=== PATIENT | female | born 2000 | race Hispanic/Latino ===

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

== ENCOUNTER 2019-03-03 16:38 | Emergency (ER) | payer SELFPAY ==
--- NOTE | 2019-03-03 16:57 | ER ---
Nurse's Notes [facility] Name: Gisele Arechiga Age: 19 yrs Sex: Female : 2000 Arrival Date: 03/03/2019 Time: 16:40 Bed Waiting [facility] MD: Diagnosis: Scabies Presentation: 03/03 16:48 Presenting complaint: Scabies rash x 4 months. Transition of care: patient was not hb received from another setting of care. Onset of symptoms is unknown. Risk Assessment: Do you want to hurt yourself or someone else? Patient reports no desire to harm self or others. Initial Sepsis Screen: Does the patient meet any 2 criteria? No. Patient's initial sepsis screen is negative. Does the patient have a suspected source of infection? No. Patient's initial sepsis screen is negative. Care prior to arrival: None. 16:48 Method Of Arrival: Ambulatory hb 16:48 Acuity: IRIS 4 hb Historical: - Allergies: 16:49 PENICILLINS; hb - Home Meds: 16:49 Depo-Provera IM [Active]; sertraline Oral [Active]; Trazodone Oral [Active]; Valtrex hb Oral [Active]; victoza [Active]; - PMHx: 16:49 Bipolar disorder; Depression; Diabetes - NIDDM; ibs; hb - PSHx: 16:49 Ear Tubes; pilonidal cyst; hb - Immunization history:: Adult Immunizations up to date. - Social history:: Smoking status: Patient/guardian denies using tobacco. - Ebola Screening: : No symptoms or risks identified at this time. Vital Signs: 16:49 BP 168 / 98; Pulse 84; Resp 16; Temp 97.4; Pulse Ox 100% on R/A; Weight 120.2 kg; hb Height 5 ft. 7 in. (170.18 cm); Pain 1/10; 16:49 Body Mass Index 41.50 (120.20 kg, 170.18 cm) hb ED Course: 16:40 Patient arrived in ED. mr 16:48 Triage completed. hb 16:49 Arm band placed on. hb 16:51 Jesi Don FNP-C is PHCP. snw 16:51 Bossman Mckeon MD is Attending Physician. snw 16:52 PHCP role handed off by Jesi Don FNP-C kb 16:52 Shonda Sandoval FNP-C is PHCP. kb 17:16 Tea Morillo, RN is Primary Nurse. hb Administered Medications: No medications were administered Outcome: 16:56 Discharge ordered by . kb 17:16 Patient left the ED. hb Signatures: Shonda Sandoval FNP-C FNP-Ckb Jesi Don FNP-C FNP-Csnw Lisa Eduardo Tea Morillo RN RN hb Corrections: (The following items were deleted from the chart) 16:50 16:48 Presenting complaint: Scabies rash x 1 month hb hb 16:50 16:49 BP 168 / 98; Pulse 84bpm; Resp 16bpm; Pulse Ox 100% RA; Temp 97.4F; 108.86 kg; hb Height 5 ft. 6 in.; BMI: 38.7; Pain 1/10; hb 16:51 16:49 BP 168 / 98; Pulse 84bpm; Resp 16bpm; Pulse Ox 100% RA; Temp 97.4F; 108.86 kg; hb Height 5 ft. 7 in.; BMI: 37.5; Pain 1/10; hb
--- NOTE | 2019-03-03 16:57 | EDPHYS ---
Physician Documentation [facility] Name: Gisele Arechiga Age: 19 yrs Sex: Female : 2000 Arrival Date: 03/03/2019 Time: 16:40 Bed Waiting Private MD: ED Physician Bossman Mckeon HPI: 03/03 17:18 This 19 yrs old Female presents to ER via Ambulatory with complaints of Rash. kb 17:18 The patient's rash thought to be caused by scabies. The rash is located on the body kb diffusely. The rash can be described as erythematous. Onset: The symptoms/episode began/occurred 4 month(s) ago. Associated signs and symptoms: Pertinent positives: itching. Severity of symptoms: At their worst the symptoms were moderate severe in the emergency department the symptoms are unchanged. Treatment given at home: permetherine. The patient has not experienced similar symptoms in the past, but family has similar symptoms, mother, father. The patient has not recently seen a physician. Pt reports she got scabies from her mother 4 months ago. Has done the permetherine cream multiple times and tried a course of ivermectine. States itching gets better for a few days and comes back again. . Historical: - Allergies: 16:49 PENICILLINS; hb - Home Meds: 16:49 Depo-Provera IM [Active]; sertraline Oral [Active]; Trazodone Oral [Active]; Valtrex hb Oral [Active]; victoza [Active]; - PMHx: 16:49 Bipolar disorder; Depression; Diabetes - NIDDM; ibs; hb - PSHx: 16:49 Ear Tubes; pilonidal cyst; hb - Immunization history:: Adult Immunizations up to date. - Social history:: Smoking status: Patient/guardian denies using tobacco. - Ebola Screening: : No symptoms or risks identified at this time. ROS: 17:18 Constitutional: Negative for fever, chills, and weight loss, Cardiovascular: Negative kb for chest pain, palpitations, and edema, Respiratory: Negative for shortness of breath, cough, wheezing, and pleuritic chest pain, Abdomen/GI: Negative for abdominal pain, nausea, vomiting, diarrhea, and constipation, Back: Negative for injury and pain, MS/Extremity: Negative for injury and deformity, Neuro: Negative for headache, weakness, numbness, tingling, and seizure. 17:18 Skin: Positive for rash, diffusely. Exam: 17:18 Constitutional: This is a well developed, well nourished patient who is awake, alert, kb and in no acute distress. Head/Face: Normocephalic, atraumatic. ENT: Nares patent. No nasal discharge, no septal abnormalities noted. Tympanic membranes are normal and external auditory canals are clear. Oropharynx with no redness, swelling, or masses, exudates, or evidence of obstruction, uvula midline. Mucous membranes moist. Neck: Trachea midline, no thyromegaly or masses palpated, and no cervical lymphadenopathy. Supple, full range of motion without nuchal rigidity, or vertebral point tenderness. No Meningismus. Chest/axilla: Normal chest wall appearance and motion. Nontender with no deformity. No lesions are appreciated. Cardiovascular: Regular rate and rhythm with a normal S1 and S2. No gallops, murmurs, or rubs. Normal PMI, no JVD. No pulse deficits. Respiratory: Lungs have equal breath sounds bilaterally, clear to auscultation and percussion. No rales, rhonchi or wheezes noted. No increased work of breathing, no retractions or nasal flaring. Abdomen/GI: Soft, non-tender, with normal bowel sounds. No distension or tympany. No guarding or rebound. No evidence of tenderness throughout. MS/ Extremity: Pulses equal, no cyanosis. Neurovascular intact. Full, normal range of motion. Neuro: Awake and alert, GCS 15, oriented to person, place, time, and situation. Cranial nerves II-XII grossly intact. Motor strength 5/5 in all extremities. Sensory grossly intact. Cerebellar exam normal. Normal gait. 17:18 Skin: scabies, and is diffusely located. Vital Signs: 16:49 BP 168 / 98; Pulse 84; Resp 16; Temp 97.4; Pulse Ox 100% on R/A; Weight 120.2 kg; hb Height 5 ft. 7 in. (170.18 cm); Pain 1/10; 16:49 Body Mass Index 41.50 (120.20 kg, 170.18 cm) hb MDM: 16:56 Patient medically screened. kb 17:18 Data reviewed: vital signs, nurses notes. Data interpreted: Pulse oximetry: on room air kb is 100 %. Interpretation: normal. Counseling: I had a detailed discussion with the patient and/or guardian regarding: the historical points, exam findings, and any diagnostic results supporting the discharge/admit diagnosis, the need for outpatient follow up, a supervisor microwave, to return to the emergency department if symptoms worsen or persist or if there are any questions or concerns that arise at home. ED course: Educated that she needs to follow up with dermatology since the scabies has not responded to previous treatment. Both mother and father have same symptoms and are here for treatment as well. Mother has looked it up on [facility] and wants them all to have the 7 dose course of ivermectin because the short courses haven't worked. Administered Medications: No medications were administered Disposition: 18:42 Co-signature as Attending Physician, Bossman Mckeon MD. rn Disposition: 03/03/19 16:56 Discharged to Home. Impression: Scabies. - Condition is Stable. - Discharge Instructions: Scabies, Adult. - Prescriptions for ivermectin 3 mg Oral tablet - take 8 tablets by ORAL route as directed take dose on days 1,2,8,9,15,22 and 29; 56 tablet. - Medication Reconciliation Form, Thank You Letter, Antibiotic Education, Prescription Opioid Use form. - Follow up: Emergency Department; When: As needed; Reason: Worsening of condition. Follow up: Private Physician; When: 2 - 3 days; Reason: Recheck today's complaints, Continuance of care, Re-evaluation by your physician. Signatures: Shonda Sandoval, BUSINESS TRAVEL CONSULTANT-C BUSINESS TRAVEL CONSULTANT-Ckb Bossman Mckeon MD MD rn Baxter, Heather, RN RN Corrections: (The following items were deleted from the chart) 17:16 16:56 03/03/2019 16:56 Discharged to Home. Impression: Scabies. Condition is Stable. hb Discharge Instructions: Scabies, Adult. Prescriptions for ivermectin 3 mg Oral tablet - take 8 tablet by ORAL route one time repeat dose 2 weeks after the first; 16 tablet. and Forms are Medication Reconciliation Form, Thank You Letter, Antibiotic Education, Prescription Opioid Use. Follow up: Emergency Department; When: As needed; Reason: Worsening of condition. Follow up: Private Physician; When: 2 - 3 days; Reason: Recheck today's complaints, Continuance of care, Re-evaluation by your physician. kb
[2019-03-03 17:22] VITALS: BP 168/98; TEMP 97.4; O2SAT 100
== END 2019-03-03 17:16 | disposition home or self-care (01) ==
LOC: ER 16:38
DX: B86 Scabies (principal); F32.9 Major depressive disorder, single episode, unspecified; E11.9 Type 2 diabetes mellitus without complications; Z88.0 Allergy status to penicillin
CPT/HCPCS: 99281

== ENCOUNTER 2020-04-10 10:53 | Emergency (ER) | payer SELFPAY ==
[2020-04-10] MEDS ORDERED: HYDROCODONE/APAP 5/325 MG TAB ONE (11:35)
[2020-04-10] MEDS ORDERED: TETANUS & DIPHTHERIA TOX,ADULT 0.5 ML VIAL ONE (11:36)
--- NOTE | 2020-04-10 11:54 | EDPHYS ---
Physician Documentation [facility] Name: Gisele Arechiga Age: 20 yrs Sex: Female : 2000 Arrival Date: 04/10/2020 Time: 10:55 Bed 17 Private MD: ED Physician El Navarrete HPI: 04/10 11:17 This 20 yrs old Female presents to ER via Wheelchair with complaints of Cyst, snw Back Pain. 11:17 Onset: The symptoms/episode began/occurred gradually, and became persistent. Associated snw signs and symptoms: Pertinent positives: pain. Modifying factors: the patient symptoms are aggravated by stimulation, sitting. The patient has experienced similar episodes in the past. The patient has not recently seen a physician. pt states area has been this way for years. 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 - Social history:: Smoking status: Patient reports the use of cigarette tobacco products, smokes one-half pack cigarettes per day. ROS: 11:16 Constitutional: Negative for fever, chills, and weight loss, Eyes: Negative for injury, snw pain, redness, and discharge, ENT: Negative for injury, pain, and discharge, Neck: Negative for injury, pain, and swelling, Cardiovascular: Negative for chest pain, palpitations, and edema, Respiratory: Negative for shortness of breath, cough, wheezing, and pleuritic chest pain, Abdomen/GI: Negative for abdominal pain, nausea, vomiting, diarrhea, and constipation, Back: Negative for injury and pain, : Negative for injury, bleeding, discharge, and swelling, MS/Extremity: Negative for injury and deformity, Neuro: Negative for headache, weakness, numbness, tingling, and seizure, Psych: Negative for depression, anxiety, suicide ideation, homicidal ideation, and hallucinations. 11:16 Skin: Positive for cyst "for years" to buttock. Exam: 11:15 Constitutional: This is a well developed, well nourished patient who is awake, alert, snw and in no acute distress. Head/Face: Normocephalic, atraumatic. Eyes: Pupils equal round and reactive to light, extra-ocular motions intact. Lids and lashes normal. Conjunctiva and sclera are non-icteric and not injected. Cornea within normal limits. Periorbital areas with no swelling, redness, or edema. ENT: Nares patent. No nasal discharge, no septal abnormalities noted. Tympanic membranes are normal and external auditory canals are clear. Oropharynx with no redness, swelling, or masses, exudates, or evidence of obstruction, uvula midline. Mucous membranes moist. Neck: Trachea midline, no thyromegaly or masses palpated, and no cervical lymphadenopathy. Supple, full range of motion without nuchal rigidity, or vertebral point tenderness. No Meningismus. Chest/axilla: Normal chest wall appearance and motion. Nontender with no deformity. No lesions are appreciated. Cardiovascular: Regular rate and rhythm with a normal S1 and S2. No gallops, murmurs, or rubs. Normal PMI, no JVD. No pulse deficits. Respiratory: Lungs have equal breath sounds bilaterally, clear to auscultation and percussion. No rales, rhonchi or wheezes noted. No increased work of breathing, no retractions or nasal flaring. Abdomen/GI: Soft, non-tender, with normal bowel sounds. No distension or tympany. No guarding or rebound. No evidence of tenderness throughout. Back: No spinal tenderness. No costovertebral tenderness. Full range of motion. MS/ Extremity: Pulses equal, no cyanosis. Neurovascular intact. Full, normal range of motion. Neuro: Awake and alert, GCS 15, oriented to person, place, time, and situation. Cranial nerves II-XII grossly intact. Motor strength 5/5 in all extremities. Sensory grossly intact. Cerebellar exam normal. Normal gait. Psych: Awake, alert, with orientation to person, place and time. Behavior, mood, and affect are within normal limits. 11:15 Skin: Appearance: normal except for affected area, lesion(s), papule(s) noted, located on the superior pilonidal area. Vital Signs: 10:58 BP 122 / 86; Pulse 107; Resp 20 S; Temp 98.2(TE); Pulse Ox 100% on R/A; Weight 108.86 ca1 kg (R); Height 5 ft. 6 in. (167.64 cm) (R); Pain 10/10; 10:58 Body Mass Index 38.74 (108.86 kg, 167.64 cm) ca1 MDM: 11:08 Patient medically screened. snw 11:57 Data reviewed: vital signs, nurses notes. Data interpreted: Pulse oximetry: on room air snw is 100 %. Interpretation: normal. Counseling: I had a detailed discussion with the patient and/or guardian regarding: the historical points, exam findings, and any diagnostic results supporting the discharge/admit diagnosis, the need for outpatient follow up, to return to the emergency department if symptoms worsen or persist or if there are any questions or concerns that arise at home. Special discussion: Based on the history and exam findings, there is no indication for further emergent testing or inpatient evaluation. I discussed with the patient/guardian the need to see the general surgeon for further evaluation of the symptoms. Administered Medications: 11:30 Drug: Tetanus-Diphtheria Toxoid Adult 0.5 ml {[employer] Repairer: PPS. Exp: ll2 08/13/2021. Lot #: [id number]. } Route: IM; Site: right deltoid; 11:50 Follow up: Response: No adverse reaction ll2 11:30 Drug: [place] 5 mg-325 mg 1 tabs Route: PO; ll2 11:49 Follow up: Response: No adverse reaction; Pain is decreased ll2 11:30 Drug: Clindamycin 300 mg Route: PO; ll2 11:49 Follow up: Response: No adverse reaction ll2 Disposition: 14:46 Co-signature as Attending Physician, El Navarrete MD I agree with the assessment and kdr plan of care. Disposition: 04/10/20 11:54 Discharged to Home. Impression: Cutaneous abscess of buttock. - Condition is Stable. - Discharge Instructions: Skin Abscess, How to Take a Sitz Bath, VIS, Tetanus, Diphtheria (Td) - CDC. - Prescriptions for Clindamycin HCl 300 mg Oral Capsule - take 1 capsule by ORAL route every 6 hours for 10 days; 40 capsule. Ultram 50 mg Oral Tablet - take 1 tablet by ORAL route every 6 hours As needed; 12 tablet. - Medication Reconciliation Form, Thank You Letter, Antibiotic Education, Prescription Opioid Use, Work release form form. - Follow up: Emergency Department; When: As needed; Reason: Worsening of condition. Follow up: Osvaldo Francois MD; When: 2 - 3 days; Reason: Recheck today's complaints, Continuance of care. Signatures: El Navarrete MD MD kdr Waters, Shelly, ROOM SERVICE WAITER-C ROOM SERVICE WAITER-Csnw Shanta Pacheco RN RN ca1 Darlin Pastor RN RN ll2 Corrections: (The following items were deleted from the chart) 12:14 11:54 04/10/2020 11:54 Discharged to Home. Impression: Cutaneous abscess of buttock. ll2 Condition is Stable. Forms are Medication Reconciliation Form, Thank You Letter, Antibiotic Education, Prescription Opioid Use. Follow up: Emergency Department; When: As needed; Reason: Worsening of condition. Follow up: Dr. Osvaldo Francois; When: 2 - 3 days; Reason: Recheck today's complaints, Continuance of care. snw
--- NOTE | 2020-04-10 11:54 | ER ---
Nurse's Notes [facility] Name: Gisele Arechiga Age: 20 yrs Sex: Female : 2000 Arrival Date: 04/10/2020 Time: 10:55 Bed 17 Private MD: Diagnosis: Cutaneous abscess of buttock Presentation: 04/10 10:58 Chief complaint: Patient states: Cyst on the buttocks for years but started getting ca1 worse yesterday, with pain with movement, walking and sitting. Coronavirus screen: Client denies travel out of the [place] in the last 14 days. At this time, the client does not indicate any symptoms associated with coronavirus-19. Ebola Screen: Patient negative for fever greater than or equal to 101.5 degrees Fahrenheit, and additional compatible Ebola Virus Disease symptoms Patient denies exposure to infectious person. Patient denies travel to an Ebola-affected area in the 21 days before illness onset. No symptoms or risks identified at this time. Initial Sepsis Screen: Does the patient meet any 2 criteria? No. Patient's initial sepsis screen is negative. Does the patient have a suspected source of infection? No. Patient's initial sepsis screen is negative. Risk Assessment: Do you want to hurt yourself or someone else? Patient reports no desire to harm self or others. Onset of symptoms was April 10, 2020. 10:58 Method Of Arrival: Wheelchair ca1 10:58 Acuity: IRIS 4 ca1 Triage Assessment: 12:16 General: Appears in no apparent distress. Behavior is calm, cooperative, appropriate ll2 for age. Pain: Complains of pain in right gluteal fold. Musculoskeletal: Circulation, motion, and sensation intact. Range of motion: intact in all extremities. SAP BPC ARCHITECT: 11:02 LMP N/A - Irregular menses ca1 Historical: - Allergies: 11:02 PENICILLINS; ca1 - PMHx: 11:02 Bipolar disorder; Depression; Diabetes - NIDDM; ibs; ca1 - PSHx: 11:02 Ear Tubes; pilonidal cyst; ca1 - Immunization history:: Adult Immunizations up to date, Flu vaccine is up to date. - Social history:: Smoking status: Patient reports the use of cigarette tobacco products, smokes one-half pack cigarettes per day. Screenin:15 Abuse screen: Denies threats or abuse. Nutritional screening: No deficits noted. ll2 Tuberculosis screening: No symptoms or risk factors identified. Fall Risk None identified. Assessment: 12:17 Neuro: Level of Consciousness is awake, alert, obeys commands, Oriented to person, ll2 place, time, situation. Vital Signs: 10:58 BP 122 / 86; Pulse 107; Resp 20 S; Temp 98.2(TE); Pulse Ox 100% on R/A; Weight 108.86 ca1 kg (R); Height 5 ft. 6 in. (167.64 cm) (R); Pain 10/10; 10:58 Body Mass Index 38.74 (108.86 kg, 167.64 cm) ca1 ED Course: 10:55 Patient arrived in ED. ag5 11:00 Triage completed. ca1 11:02 Arm band placed on right wrist. ca1 11:06 Jesi Lewis FNP-C is PHCP. snw 11:06 El Navarrete MD is Attending Physician. snw 11:19 Darlin Pastor, TALON is Primary Nurse. ll2 11:53 Osvaldo Francois MD is Referral Physician. snw 12:15 Patient has correct armband on for positive identification. Bed in low position. Call ll2 light in reach. Side rails up X 1. Pulse ox on. NIBP on. 12:17 No provider procedures requiring assistance completed. Patient did not have IV access ll2 during this emergency room visit. Administered Medications: 11:30 Drug: Tetanus-Diphtheria Toxoid Adult 0.5 ml {Technical Associate: [employer]. Exp: ll2 08/13/2021. Lot #: [id number]. } Route: IM; Site: right deltoid; 11:50 Follow up: Response: No adverse reaction ll2 11:30 Drug: [place] 5 mg-325 mg 1 tabs Route: PO; ll2 11:49 Follow up: Response: No adverse reaction; Pain is decreased ll2 11:30 Drug: Clindamycin 300 mg Route: PO; ll2 11:49 Follow up: Response: No adverse reaction ll2 Outcome: 11:54 Discharge ordered by . snw 12:14 Patient left the ED. ll2 12:17 Discharged to home ambulatory. ll2 12:17 Condition: stable 12:17 Discharge instructions given to Instructed on discharge instructions, follow up and referral plans. medication usage, Demonstrated understanding of instructions, follow-up care, medications, Prescriptions given X 2. Signatures: Jesi Lewis, QUENCHING MACHINE OPERATOR-C QUENCHING MACHINE OPERATOR-Csnw Shanta Pacheco RN RN ca1 Garcia Lowery ag5 Darlin Pastor RN RN ll2 Corrections: (The following items were deleted from the chart) 19: 11:49 Response: No adverse reaction ll2 ll2 19: 19:22 Response: No adverse reaction; Pain is decreased ll2 ll2
[2020-04-10 13:04] VITALS: BP 122/86; TEMP 98.2; O2SAT 100
== END 2020-04-10 12:14 | disposition home or self-care (01) ==
LOC: ER 10:53
DX: L02.31 Cutaneous abscess of buttock (principal); F17.210 Nicotine dependence, cigarettes, uncomplicated; Z23 Encounter for immunization; Z88.0 Allergy status to penicillin
CPT/HCPCS: 90471; 90714; 99283

== ENCOUNTER 2020-06-08 11:19 | Emergency (ER) | payer SELFPAY ==
--- OUTSIDE RECORDS SUMMARY | 2020-06-08 11:20 | XMS REPORT | Continuity of Care Document ---
:2000 Author Organization [facility] t Address [address] [place] [address] Care Team Providers Name Role Phone Jonh Caballero Attending Clinician Problems This patient has no known problems. Allergies, Adverse Reactions, Alerts This patient has no known allergies or adverse reactions. Medications This patient has no known medications. Procedures This patient has no known procedures. Encounters Start End Encounter Admission Attending Care Care Encounter Source Date/Time Date/Time Type Type Clinicians Facility Department ID 2020-01-08 2020-01-08 Emergency El [facility] [id number] 00:31:00 02:30:00 Jonh Yost [id number] [place] [id number] [place] [id number] Results This patient has no known results.
[2020-06-08 15:32] LABS: SARS-COV-2 RT PCR NEGATIVE (NEGATIVE)
--- NOTE | 2020-06-08 15:34 | EDPHYS ---
Physician Documentation [facility] Name: Gisele Arechiga Age: 20 yrs Sex: Female : 2000 Arrival Date: 06/08/2020 Time: 11:21 Bed 30 Private MD: ED Physician El Navarrete HPI: 06/08 13:56 This 20 yrs old Female presents to ER via Ambulatory with complaints of Flu kb Symptoms. 13:56 The patient or guardian reports cough, that is intermittent, described as mild, with no kb sputum, flu symptoms, myalgias. Onset: The symptoms/episode began/occurred yesterday. Severity of symptoms: At their worst the symptoms were mild, moderate, in the emergency department the symptoms are unchanged. Modifying factors: The symptoms are alleviated by nothing, the symptoms are aggravated by nothing. Associated signs and symptoms: Pertinent positives: rhinorrhea, sore throat, Pertinent negatives: chest pain, diarrhea, ear ache, fever, nausea, vomiting. The patient has experienced similar episodes in the past. The patient has not recently seen a physician. Pt reports cough, congestion, fatigue, sore throat that started yesterday. "I get this every year like clockwork since I was little.". 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 - Social history:: Smoking status: Patient reports the use of cigarette tobacco products, denies chronic smoking, but will smoke occasionally. ROS: 13:54 Cardiovascular: Negative for chest pain, palpitations, and edema, Abdomen/GI: Negative kb for abdominal pain, nausea, vomiting, diarrhea, and constipation, Back: Negative for injury and pain, MS/Extremity: Negative for injury and deformity, Skin: Negative for injury, rash, and discoloration, Neuro: Negative for headache, weakness, numbness, tingling, and seizure. 13:54 Constitutional: Positive for body aches, fatigue, malaise, Negative for chills, fever, poor PO intake, weight loss. 13:54 ENT: Positive for rhinorrhea, sinus congestion, sore throat. 13:54 Respiratory: Positive for cough, Negative for dyspnea on exertion, hemoptysis, orthopnea, pleurisy, shortness of breath, sputum production, wheezing. Exam: 13:54 Constitutional: This is a well developed, well nourished patient who is awake, alert, kb and in no acute distress. Head/Face: Normocephalic, atraumatic. Chest/axilla: Normal chest wall appearance and motion. Nontender with no deformity. No lesions are appreciated. Cardiovascular: Regular rate and rhythm with a normal S1 and S2. No gallops, murmurs, or rubs. Normal PMI, no JVD. No pulse deficits. Respiratory: Lungs have equal breath sounds bilaterally, clear to auscultation and percussion. No rales, rhonchi or wheezes noted. No increased work of breathing, no retractions or nasal flaring. Abdomen/GI: Soft, non-tender, with normal bowel sounds. No distension or tympany. No guarding or rebound. No evidence of tenderness throughout. Skin: Warm, dry with normal turgor. Normal color with no rashes, no lesions, and no evidence of cellulitis. MS/ Extremity: Pulses equal, no cyanosis. Neurovascular intact. Full, normal range of motion. Neuro: Awake and alert, GCS 15, oriented to person, place, time, and situation. Cranial nerves II-XII grossly intact. Motor strength 5/5 in all extremities. Sensory grossly intact. Cerebellar exam normal. Normal gait. Vital Signs: 11:29 Pulse 89; Resp 20; Temp 98.4; Pulse Ox 99% on R/A; Height 5 ft. 4 in. (162.56 cm); Pain em 5/10; 11:34 BP 106 / 88; em MDM: 13:20 Patient medically screened. kb 13:54 Data reviewed: vital signs, nurses notes. Data interpreted: Pulse oximetry: on room air kb is 99 %. Interpretation: normal. Counseling: I had a detailed discussion with the patient and/or guardian regarding: the historical points, exam findings, and any diagnostic results supporting the discharge/admit diagnosis, lab results, the need for outpatient follow up, a family practitioner, to return to the emergency department if symptoms worsen or persist or if there are any questions or concerns that arise at home. 06/08 13:18 Order name: Strep; Complete Time: 15:01 em 06/08 15:02 Order name: Throat Culture EDMS 06/08 15:33 Order name: COVID-19/FLU A+B; Complete Time: 15:33 EDMS Administered Medications: No medications were administered Disposition: 15:57 Co-signature as Attending Physician, El Navarrete MD I agree with the assessment and kdr plan of care. Disposition: 06/08/20 15:33 Discharged to Home. Impression: Acute upper respiratory infection, unspecified. - Condition is Stable. - Discharge Instructions: Upper Respiratory Infection, Adult, Erht-tl-Goii, Viral Respiratory Infection, Xwst-Nw-Hcie. - Medication Reconciliation Form, Thank You Letter, Antibiotic Education, Prescription Opioid Use, Work release form form. - Follow up: Emergency Department; When: As needed; Reason: Worsening of condition. Follow up: Private Physician; When: 2 - 3 days; Reason: Recheck today's complaints, Continuance of care, Re-evaluation by your physician. Signatures: Dispatcher [employer] EDVT Shonda Sandoval, DRY CHAIN WORKER-C DRY CHAIN WORKER-Ckb El Navarrete MD MD kdr Khai Jones, RN RN em Kim Arechiga RN RN vg1 Corrections: (The following items were deleted from the chart) 14:03 13:06 Influenza Screen (A \\T\\ B)+BA.LAB.BRZ ordered. [facility] EDVT 14:05 13:06 CORONAVIRUS+MR.LAB.BRZ ordered. [facility] EDVT 15:47 15:33 06/08/2020 15:33 Discharged to Home. Impression: Acute upper respiratory vg1 infection, unspecified. Condition is Stable. Forms are Medication Reconciliation Form, Thank You Letter, Antibiotic Education, Prescription Opioid Use. Follow up: Emergency Department; When: As needed; Reason: Worsening of condition. Follow up: Private Physician; When: 2 - 3 days; Reason: Recheck today's complaints, Continuance of care, Re-evaluation by your physician. kb
--- NOTE | 2020-06-08 15:34 | ER ---
Nurse's Notes [facility] Name: Gisele Arechiga Age: 20 yrs Sex: Female : 2000 Arrival Date: 06/08/2020 Time: 11:21 Bed 30 Private MD: Diagnosis: Acute upper respiratory infection, unspecified Presentation: 06/08 11:29 Chief complaint: Patient states: body aches, congestion, cough, and sneezing for 3 em days, denies chest pain or fever. Coronavirus screen: Client denies travel out of the [place] in the last 14 days. congestion, cough unrelated to allergies. Ebola Screen: Patient negative for fever greater than or equal to 101.5 degrees Fahrenheit, and additional compatible Ebola Virus Disease symptoms Patient denies exposure to infectious person. Patient denies travel to an Ebola-affected area in the 21 days before illness onset. No symptoms or risks identified at this time. Initial Sepsis Screen: Does the patient meet any 2 criteria? No. Patient's initial sepsis screen is negative. Does the patient have a suspected source of infection? No. Patient's initial sepsis screen is negative. Risk Assessment: Do you want to hurt yourself or someone else? Patient reports no desire to harm self or others. Onset of symptoms was June 05, 2020. 11:29 Method Of Arrival: Ambulatory em 11:29 Acuity: IRIS 4 em [facility] DIRECTOR: 11:33 LMP N/A - Irregular menses em Historical: - Allergies: 11:33 PENICILLINS; em - PMHx: 11:33 Bipolar disorder; Depression; Diabetes - NIDDM; ibs; em - PSHx: 11:33 pilonidal cyst; Ear Tubes; em - Immunization history:: Adult Immunizations up to date. - Social history:: Smoking status: Patient reports the use of cigarette tobacco products, denies chronic smoking, but will smoke occasionally. Screenin:30 Abuse screen: Denies threats or abuse. Nutritional screening: No deficits noted. em Tuberculosis screening: No symptoms or risk factors identified. Fall Risk None identified. Assessment: 11:40 General: Appears in no apparent distress. uncomfortable, Behavior is calm, cooperative, em appropriate for age, Reports feeling ill for 1-2 days, Denies fever. Pain: Complains of pain in "body aches". Neuro: Level of Consciousness is awake, alert, obeys commands, Oriented to person, place, time, situation, Appropriate for age. Cardiovascular: Capillary refill < 3 seconds Patient's skin is warm and dry. Respiratory: Reports cough that is Airway is patent Respiratory effort is even, unlabored, Respiratory pattern is regular, symmetrical. Derm: Skin is intact, is healthy with good turgor, Skin is pink, warm \\T\\ dry. Musculoskeletal: Capillary refill < 3 seconds, Range of motion: intact in all extremities. Vital Signs: 11:29 Pulse 89; Resp 20; Temp 98.4; Pulse Ox 99% on R/A; Height 5 ft. 4 in. (162.56 cm); Pain em 5/10; 11:34 BP 106 / 88; em ED Course: 11:21 Patient arrived in ED. rg4 11:32 Triage completed. em 11:33 Arm band placed on. em 11:40 Patient has correct armband on for positive identification. em 13:06 Shonda Sandoval FNP-C is [facility]. kb 13:06 El Navarrete MD is Attending Physician. kb 14:01 Strep Sent. [facility] 15:30 Khai Jones, RN is Primary Nurse. em 15:45 No provider procedures requiring assistance completed. Patient did not have IV access em during this emergency room visit. Administered Medications: No medications were administered Outcome: 15:33 Discharge ordered by MD. kb 15:45 Discharged to home ambulatory. em 15:45 Condition: good 15:45 Discharge instructions given to patient, Instructed on discharge instructions, follow up and referral plans. Demonstrated understanding of instructions, follow-up care. 15:47 Patient left the ED. vg1 Signatures: Shonda Sandoval FNP-C FNP-Khai Tellez, RN RN Ida Arechiga [facility] Bette Kumar [facility] Kim Arechiga, TALON RN vg1 Corrections: (The following items were deleted from the chart) 14:03 14:02 Influenza Screen (A \\T\\ B)+BA.LAB.BRZ drawn and sent. [facility] EDMS 14:05 14:02 CORONAVIRUS+MR.LAB.BRZ drawn and sent. [facility] EDMS
== END 2020-06-08 15:47 | disposition home or self-care (01) ==
LOC: ER 11:19
DX: J06.9 Acute upper respiratory infection, unspecified (principal); Z20.822 Contact with and (suspected) exposure to COVID-19; F17.210 Nicotine dependence, cigarettes, uncomplicated; Z88.0 Allergy status to penicillin
CPT/HCPCS: 0240U; 87070; 87081; 99283

== ENCOUNTER 2022-01-10 15:08 | Emergency (ER) | payer SELFPAY ==
--- OUTSIDE RECORDS SUMMARY | 2022-01-10 15:14 | XMS REPORT | Continuity of Care Document ---
:2000 Author Organization [facility] t Address [address] [place] [address] Care Team Providers Name Role Phone CHUY ULLOA Primary Care Physician Unavailable PRAKASH ALLAN Attending Clinician Unavailable Prakash Wells Attending Clinician [place] WHCNPFelipa Attending Clinician [phone] FELIPA BRISENO Attending Clinician Unavailable Danita BROUSSARD, Annabella Almanzar Attending Clinician Lise Garcia RN Attending Clinician Unavailable Jake Jonas MD Attending Clinician Doctor Unassigned, Kemmerer Attending Clinician Unavailable Morena Benton DO Attending Clinician MORENA BENTON Attending Clinician Unavailable [place] Attending Clinician EL HUSSEIN Attending Clinician Unavailable Payers Payer Name Policy Type Policy Number Effective Date Expiration Date S teresa MEDICAID PENDING PENDING 2020 2021 00:00:00 00:00:00 Problems Condition Condition Condition Status Onset Resolution Last Treating Co mments Source Name Details Category Date Date Treatment Clinician Date Well woman Well woman Disease Active U nivers exam exam 5-18 ity of 00:00: [address] Obesity Obesity Disease Active Univers (BMI (BMI 5-18 ity of 30-39.9) 30-39.9) 00:00: [place] 00 Medical Branch Pilonidal Pilonidal Disease Active Uni vers cyst cyst 5-18 ity of 00:00: [place] 00 Medical Branch No known No known Disease Unive rs active active ity of problems problems [facility] Allergies, Adverse Reactions, Alerts Allergy Allergy Status Severity Reaction(s) Onset Inactive Treating Comm ents Source Name Type Date Date Clinician Cat Propensi Active Hives Univers Dander ty to 5-18 ity of adverse 00:00: [place] reaction 00 Medical s Branch CAT DRUG Active Hives Univers DANDER INGREDI 5-18 ity of 00:00: [place] 00 Medical Branch Penicill Propensi Active Hives Univer s ins ty to 9-16 ity of adverse 00:00: [place] reaction 00 Medical s Branch PENICILL Drug Active Hives Univers INS Class 9-16 ity of 00:00: [place] 00 Medical [place] Social History Social Habit Start Date Stop Date Quantity Comments Source History of tobacco Cigarette Smoker University of use [facility] Exposure to Not sure University of SARS-CoV-2 (event) [facility] Branch History [facility] o f Alcohol Frequency [facility] [place] [place] Branch History [facility] o f Alcohol Std Drinks [facility] History [facility] o f Alcohol Binge [facility] Alcohol intake 2020-12-31 2020-12-31 Current drinker Unive rsity of 00:00:00 00:00:00 of alcohol [facility] (finding) Branch Cigarettes smoked 2020-10-17 2020-10-17 Univers ity of current (pack per 00:00:00 00:00:[address] [facility] [place] [place] ) - Reported Branch Tobacco use and 2020-10-17 2020-10-17 Former user Universi ty of exposure 00:00:00 00:00:00 [facility] Tobacco Comment 2020-10-17 2020-10-17 8-10 cigarettes a Un iversity of 00:00:00 00:00:00 day [facility] Alcohol Comment 2020-10-17 2020-10-17 socially Universit y of 00:00:00 00:00:00 [facility] Sex Assigned At [birth year] Universit y of 00:00:00 00:00:00 [facility] Smoking Status Start Date Stop Date Source Current every day smoker 2020-10-17 00:00:00 Uni versity [facility] Unknown if ever smoked [facility] Medications Ordered Filled Start Stop Current Ordering Indication Dosage Frequency Signature Comments Components Source Medication Medication Date Date Medication? Clinician (SIG) Name Name clindamycin 2021- No 450mg 450 mg, U timothy (CLEOCIN 4-14 04-14 Oral, ity of HCL) 08:00: 06:55 ONCE, 1 [place] capsule 450 00 :00 dose, On Medi [facility] 09/13/21 at 0300, SHALOM
Re ason for Anti-Infec tive: Documented Infection< br>Documen jill Infection Site: Skin / Soft Tissue
Duration of Therapy: Other (see Comments)< br>Restric jill use approved by: ED PROVIDER<b r>Indicati on for Clindamyci n use: pilonidal cyst allergic to PCN clindamycin 2021- No [id number] 450mg Take 3 Univers 150 mg -14 04-25 capsules ity of capsule 00:00: 04:59 by mouth 3 [place] as 00 :00 (three) Medical times [place] daily for 10 days. norgestimat Yes [id number] 1{tbl} Take 1 Univers e-ethinyl 6-08 tablet by ity o f estradioL 00:00: mouth [place] (ORTHO 00 daily. [facility] 0.18/0.215/ 0.25 mg-35 mcg (28) tablet norgestimat Yes [id number] 1{tbl} Take 1 Univers e-ethinyl 6-08 tablet by ity o f estradioL 00:00: mouth [place] (ORTHO 00 daily. [facility],) 0.18/0.215/ 0.25 mg-35 mcg (28) tablet norgestimat Yes [id number] 1{tbl} Take 1 Univers e-ethinyl 6-08 tablet by ity o f estradioL 00:00: mouth [place] [facility] [address] 0.18/0.215/ 0.25 mg-35 mcg (28) tablet norgestimat 2021-0 Yes [id number] 1{tbl} Take 1 Univers e-ethinyl 6-08 tablet by ity o f estradioL 00:00: mouth [place] (ORTHO 00 daily. [place] [address],) 0.18/0.215/ 0.25 mg-35 mcg (28) tablet norgestimat 2021-0 Yes [id number] 1{tbl} Take 1 Univers e-ethinyl 6-08 tablet by ity o f estradioL 00:00: mouth [place] (ORTHO 00 daily. [facility] [address] 0.18/0.215/ 0.25 mg-35 mcg (28) tablet norgestimat 2021-0 Yes [id number] 1{tbl} Take 1 Univers e-ethinyl 6-08 tablet by ity o f estradioL 00:00: mouth [place] (ORTHO 00 daily. [facility] [address] 0.18/0.215/ 0.25 mg-35 mcg (28) tablet norgestimat 2021-0 Yes [id number] 1{tbl} Take 1 Univers e-ethinyl 6-08 tablet by ity o f estradioL 00:00: mouth [place] (ORTHO 00 daily. [place] [address],) 0.18/0.215/ 0.25 mg-35 mcg (28) tablet medroxyPROG 2021-0 2021- No [id number] 10mg Take 1 Univers ESTERone 5-20 05-31 tablet by ity o f (PROVERA) 00:00: 04:59 mouth [place] 10 mg 00 :00 daily for Medical tablet 10 days. [place] medroxyPROG 2021-0 2021- No [id number] 10mg Take 1 Univers ESTERone 5-20 05-31 tablet by ity o f (PROVERA) 00:00: 04:59 mouth [place] 10 mg 00 :00 daily for Medical tablet 10 days. [place] medroxyPROG 2021-0 1- No [id number] 10mg Take 1 Univers ESTERone 5-20 05-31 tablet by ity o f (PROVERA) 00:00: 04:59 mouth [place] 10 mg 00 :00 daily for Medical tablet 10 days. [place] medroxyPROG 2020-0 2020- No [id number] 10mg Take 1 Univers ESTERone 5-20 05-31 tablet by ity o f (PROVERA) 00:00: 04:59 mouth [place] 10 mg 00 :00 daily for Medical tablet 10 days. Branch phentermine Yes 37.5mg Take 37.5 Univers 37.5 mg 5-18 mg by ity of capsule 18:21: mouth [place] 18 every Medical morning. Branch phentermine 2020-0 Yes 37.5mg Take 37.5 Univers 37.5 mg 5-18 mg by ity of capsule 18:21: mouth [place] 18 every Medical morning. Branch phentermine Yes 37.5mg Take 37.5 Univers 37.5 mg 5-18 mg by ity of capsule 18:21: mouth [place] 18 every Medical morning. Branch phentermine Yes 37.5mg Take 37.5 Univers 37.5 mg 5-18 mg by ity of capsule 18:21: mouth [place] 18 every Medical morning. Branch phentermine Yes 37.5mg Take 37.5 Univers 37.5 mg 5-18 mg by ity of capsule 18:21: mouth [place] 18 every Medical morning. Branch phentermine Yes 37.5mg Take 37.5 Univers 37.5 mg 5-18 mg by ity of capsule 18:21: mouth [place] 18 every Medical morning. [place] phentermine Yes 37.5mg Take 37.5 Univers 37.5 mg 5-18 mg by ity of capsule 18:21: mouth [place] 18 every Medical morning. Branch phentermine 2020-0 Yes 37.5mg Take 37.5 Univers 37.5 mg 5-18 mg by ity of capsule 18:21: mouth [place] 18 every Medical morning. Branch phentermine 2020-0 Yes 37.5mg Take 37.5 Univers 37.5 mg 5-18 mg by ity of capsule 18:21: mouth [place] 18 every Medical morning. Branch phentermine 0 Yes 37.5mg Take 37.5 Univers 37.5 mg 5-18 mg by ity of capsule 18:21: mouth [place] 18 every Medical morning. Branch phentermine 2020-0 Yes 37.5mg Take 37.5 Univers 37.5 mg 5-18 mg by ity of capsule 18:21: mouth [place] 18 every Medical morning. [place] phentermine Yes 37.5mg Take 37.5 Univers 37.5 mg 5-18 mg by ity of capsule 18:21: mouth [place] 18 every Medical morning. [place] phentermine Yes 37.5mg Take 37.5 Univers 37.5 mg 5-18 mg by ity of capsule 18:21: mouth [place] 18 every Medical morning. [place] phentermine Yes 37.5mg Take 37.5 Univers 37.5 mg 5-18 mg by ity of capsule 18:21: mouth [place] 18 every Medical morning. [place] phentermine Yes 37.5mg Take 37.5 Univers 37.5 mg 5-18 mg by ity of capsule 18:21: mouth [place] 18 every Medical morning. [place] phentermine Yes 37.5mg Take 37.5 Univers 37.5 mg 5-18 mg by ity of capsule 18:21: mouth [place] 18 every Medical morning. [place] phentermine Yes 37.5mg Take 37.5 Univers 37.5 mg 5-18 mg by ity of capsule 18:21: mouth [place] 18 every Medical morning. [place] phentermine Yes 37.5mg Take 37.5 Univers 37.5 mg 5-18 mg by ity of capsule 18:21: mouth [place] 18 every Medical morning. [place] phentermine Yes 37.5mg Take 37.5 Univers 37.5 mg 5-18 mg by ity of capsule 18:21: mouth [place] 18 every Medical morning. [place] phentermine Yes 37.5mg Take 37.5 Univers 37.5 mg 5-18 mg by ity of capsule 13:21: mouth [place] 18 every Medical morning. [place] phentermine Yes 37.5mg Take 37.5 Univers 37.5 mg 5-18 mg by ity of capsule 13:21: mouth [place] 18 every Medical morning. [place] ketorolac 2020- No 30mg 30 mg, Lc rs (TORADOL) 3-10 03-10 Slow IV ity of injection 05:45: 05:42 Push, [place] 30 mg 00 :00 ONCE, 1 Medical dose, [place] 08/08/20 at 2345, SHALOM
[facility] Rest[facility] medication : MORENA BENTON sulfamethox 2018-0 Yes 2{tbl} Take 2 Un fabrice azole-trime 9-16 tablets by it y of thoprim 00:00: mouth 2 [place] (BACTRIM 00 (two) Medical DS) 800-160 times Branch mg per daily. tablet traMADOL 2018-0 Yes 50mg Take 1-2 Unive rs (ULTRAM) 50 9-16 tablets by it y of mg tablet 00:00: mouth [place] 00 every 8 Medical (eight) Branch hours as needed (severe pain, alternate with ibuprofen) . sulfamethox 2018-0 Yes 2{tbl} Take 2 Un fabrice azole-trime 9-16 tablets by it y of thoprim 00:00: mouth 2 [place] (BACTRIM 00 (two) Medical DS) 800-160 times Branch mg per daily. tablet traMADOL 2018-0 Yes 50mg Take 1-2 Unive rs (ULTRAM) 50 9-16 tablets by it y of mg tablet 00:00: mouth [place] 00 every 8 Medical (eight) Branch hours as needed (severe pain, alternate with ibuprofen) . sulfamethox 2018-0 Yes 2{tbl} Take 2 Un fabrice azole-trime 9-16 tablets by it y of thoprim 00:00: mouth 2 [place] (BACTRIM 00 (two) Medical DS) 800-160 times Branch mg per daily. tablet traMADOL 2018-0 Yes 50mg Take 1-2 Unive rs (ULTRAM) 50 9-16 tablets by it y of mg tablet 00:00: mouth [place] 00 every 8 Medical (eight) Branch hours as needed (severe pain, alternate with ibuprofen) . sulfamethox 2018-0 Yes 2{tbl} Take 2 Un fabrice azole-trime 9-16 tablets by it y of thoprim 00:00: mouth 2 [place] (BACTRIM 00 (two) Medical DS) 800-160 times Branch mg per daily. tablet traMADOL 2018-0 Yes 50mg Take 1-2 Unive rs (ULTRAM) 50 9-16 tablets by it y of mg tablet 00:00: mouth [place] 00 every 8 Medical (eight) Branch hours as needed (severe pain, alternate with ibuprofen) . sulfamethox 2018-0 2020- No 2{tbl} Take 2 U nivers azole-trime 9-16 05-18 tablets by i ty of thoprim 00:00: 00:00 mouth 2 [place] (BACTRIM 00 :00 (two) Medical DS) 800-160 times Branch mg per daily. tablet traMADOL 2020- No 50mg Take 1-2 Univ ers (ULTRAM) 50 9-16 05-18 tablets by i ty of mg tablet 00:00: 00:00 mouth [place] 00 :00 every 8 Medical (eight) Branch hours as needed (severe pain, alternate with ibuprofen) . sulfamethox 2020- No 2{tbl} Take 2 U nivers azole-trime 9-16 05-18 tablets by i ty of thoprim 00:00: 00:00 mouth 2 [place] (BACTRIM 00 :00 (two) Medical DS) 800-160 times Branch mg per daily. tablet traMADOL No 50mg Take 1-2 Univ ers (ULTRAM) 50 9-16 05-18 tablets by i ty of mg tablet 00:00: 00:00 mouth [place] 00 :00 every 8 Medical (eight) Branch hours as needed (severe pain, alternate with ibuprofen) . Immunizations Ordered Immunization Filled Immunization Date Status Commen ts Source Name Name HPV9 2020-10-17 Completed University of 00:00:00 [facility] HPV9 2020-10-17 Completed University of 00:00:00 [facility] HPV9 2020-10-17 Completed University of 00:00:00 [facility] HPV9 2020-10-17 Completed University of 00:00:00 [facility] HPV9 2020-10-17 Completed University of 00:00:00 [facility] HPV9 2020-10-17 Completed University of 00:00:00 [facility] HPV9 2020-10-17 Completed University of 00:00:00 [facility] HPV9 2020-10-17 Completed University of 00:00:00 [facility] HPV9 2020-10-17 Completed University of 00:00:00 [facility] HPV9 2020-10-17 Completed University of 00:00:00 [facility] HPV9 2020-10-17 Completed University of 00:00:00 [facility] HPV9 2020-10-17 Completed University of 00:00:00 [place] [facility] HPV9 2020-10-17 Completed University of 00:00:00 [place] [facility] HPV9 2020-10-17 Completed University of 00:00:00 [place] [facility] HPV9 2020-10-17 Completed University of 00:00:00 [place] [facility] HPV9 2020-10-17 Completed University of 00:00:00 [place] [facility] HPV9 2020-10-17 Completed University of 00:00:00 [place] [facility] HPV9 2020-10-17 Completed University of 00:00:00 [place] [facility] HPV9 2020-10-17 Completed University of 00:00:00 [place] [facility] HPV9 2020-10-17 Completed University of 00:00:00 [place] [facility] HPV9 2020-10-17 Completed University of 00:00:00 [facility] Branch HPV 2018-09-15 Completed University of 00:00:00 [facility] Branch Meningococcal 2018-09-15 Completed University of Vaccine 00:00:00 [place] [facility] HPV 2018-09-15 Completed University of 00:00:00 [place] [facility] Meningococcal 2018-09-15 Completed University of Vaccine 00:00:00 [place] [facility] HPV 2018-09-15 Completed University of 00:00:00 [place] [facility] Meningococcal 2018-09-15 Completed University of Vaccine 00:00:00 [place] [facility] HPV 2018-09-15 Completed University of 00:00:00 [place] [facility] Meningococcal 2018-09-15 Completed University of Vaccine 00:00:00 [place] [facility] HPV 2018-09-15 Completed University of 00:00:00 [place] [facility] Meningococcal 2018-09-15 Completed University of Vaccine 00:00:00 [place] [facility] HPV 2018-09-15 Completed University of 00:00:00 [place] [facility] Meningococcal 2018-09-15 Completed University of Vaccine 00:00:00 [place] [facility] HPV 2018-09-15 Completed University of 00:00:00 [place] [facility] Meningococcal 2018-09-15 Completed University of Vaccine 00:00:00 [place] [facility] HPV 2018-09-15 Completed University of 00:00:00 [place] [facility] Meningococcal 2018-09-15 Completed University of Vaccine 00:00:00 [place] [facility] HPV 2018-09-15 Completed University of 00:00:00 [place] [facility] Meningococcal 2018-09-15 Completed University of Vaccine 00:00:00 [facility] HPV 2018-09-15 Completed University of 00:00:00 [facility] Meningococcal 2018-09-15 Completed University of Vaccine 00:00:00 [facility] HPV 2018-09-15 Completed University of 00:00:00 [facility] Meningococcal 2018-09-15 Completed University of Vaccine 00:00:00 [facility] HPV 2018-09-15 Completed University of 00:00:00 [facility] Meningococcal 2018-09-15 Completed University of Vaccine 00:00:00 [facility] HPV 2018-09-15 Completed University of 00:00:00 [facility] Meningococcal 2018-09-15 Completed University of Vaccine 00:00:00 [facility] HPV 2018-09-15 Completed University of 00:00:00 [facility] Meningococcal 2018-09-15 Completed University of Vaccine 00:00:00 [facility] HPV 2018-09-15 Completed University of 00:00:00 [facility] Meningococcal 2018-09-15 Completed University of Vaccine 00:00:00 [facility] HPV 2018-09-15 Completed University of 00:00:00 [facility] Meningococcal 2018-09-15 Completed University of Vaccine 00:00:00 [facility] HPV 2018-09-15 Completed University of 00:00:00 [facility] Meningococcal 2018-09-15 Completed University of Vaccine 00:00:00 [facility] HPV 2018-09-15 Completed University of 00:00:00 [facility] Meningococcal 2018-09-15 Completed University of Vaccine 00:00:00 [facility] HPV 2018-09-15 Completed University of 00:00:00 [facility] Meningococcal 2018-09-15 Completed University of Vaccine 00:00:00 [facility] HPV 2018-09-15 Completed University of 00:00:00 [facility] Meningococcal 2018-09-15 Completed University of Vaccine 00:00:00 [facility] HPV 2018-09-15 Completed University of 00:00:00 [facility] Meningococcal 2018-09-15 Completed University of Vaccine 00:00:00 [facility] HEPATITIS A 2012-01-21 Completed University of 00:00:00 [facility] Meningococcal 2012-01-21 Completed University of Vaccine 00:00:00 [facility] TDAP 2012-01-21 Completed University of 00:00:00 [facility] Varicella 2012-01-21 Completed University of (varivax)(chicken 00:00:00 [place] M edical pox) Branch HEPATITIS A 2012-01-21 Completed University of 00:00:00 [facility] Meningococcal 2012-01-21 Completed University of Vaccine 00:00:00 [facility] TDAP 2012-01-21 Completed University of 00:00:00 [facility] Varicella 2012-01-21 Completed University of (varivax)(chicken 00:00:00 [place] M edical pox) Branch HEPATITIS A 2012-01-21 Completed University of 00:00:00 [facility] Meningococcal 2012-01-21 Completed University of Vaccine 00:00:00 [facility] TDAP 2012-01-21 Completed University of 00:00:00 [facility] Varicella 2012-01-21 Completed University of (varivax)(chicken 00:00:00 [place] M edical pox) Branch HEPATITIS A 2012-01-21 Completed University of 00:00:00 [facility] Meningococcal 2012-01-21 Completed University of Vaccine 00:00:00 [facility] TDAP 2012-01-21 Completed University of 00:00:00 [facility] Varicella 2012-01-21 Completed University of (varivax)(chicken 00:00:00 [place] M edical pox) Branch HEPATITIS A 2012-01-21 Completed University of 00:00:00 [facility] Meningococcal 2012-01-21 Completed University of Vaccine 00:00:00 [facility] TDAP 2012-01-21 Completed University of 00:00:00 [facility] Varicella 2012-01-21 Completed University of (varivax)(chicken 00:00:00 [place] M edical pox) Branch HEPATITIS A 2012-01-21 Completed University of 00:00:00 [facility] Meningococcal 2012-01-21 Completed University of Vaccine 00:00:00 [facility] TDAP 2012-01-21 Completed University of 00:00:00 [facility] Varicella 2012-01-21 Completed University of (varivax)(chicken 00:00:00 [place] M edical pox) Branch HEPATITIS A 2012-01-21 Completed University of 00:00:00 [facility] Meningococcal 2012-01-21 Completed University of Vaccine 00:00:00 [facility] TDAP 2012-01-21 Completed University of 00:00:00 [facility] Varicella 2012-01-21 Completed University of (varivax)(chicken 00:00:00 [place] M edical pox) Branch HEPATITIS A 2012-01-21 Completed University of 00:00:00 [facility] Meningococcal 2012-01-21 Completed University of Vaccine 00:00:00 [facility] TDAP 2012-01-21 Completed University of 00:00:00 [facility] Varicella 2012-01-21 Completed University of (varivax)(chicken 00:00:00 [place] M edical pox) Branch HEPATITIS A 2012-01-21 Completed University of 00:00:00 [facility] Meningococcal 2012-01-21 Completed University of Vaccine 00:00:00 [facility] TDAP 2012-01-21 Completed University of 00:00:00 [facility] Varicella 2012-01-21 Completed University of (varivax)(chicken 00:00:00 [place] M edical pox) Branch HEPATITIS A 2012-01-21 Completed University of 00:00:00 [facility] Meningococcal 2012-01-21 Completed University of Vaccine 00:00:00 [facility] TDAP 2012-01-21 Completed University of 00:00:00 [facility] Varicella 2012-01-21 Completed University of (varivax)(chicken 00:00:00 [place] M edical pox) Branch HEPATITIS A 2012-01-21 Completed University of 00:00:00 [facility] Meningococcal 2012-01-21 Completed University of Vaccine 00:00:00 [facility] TDAP 2012-01-21 Completed University of 00:00:00 [facility] Varicella 2012-01-21 Completed University of (varivax)(chicken 00:00:00 [place] M edical pox) Branch HEPATITIS A 2012-01-21 Completed University of 00:00:00 [facility] Meningococcal 2012-01-21 Completed University of Vaccine 00:00:00 [facility] TDAP 2012-01-21 Completed University of 00:00:00 [facility] Varicella 2012-01-21 Completed University of (varivax)(chicken 00:00:00 [place] M edical pox) Branch HEPATITIS A 2012-01-21 Completed University of 00:00:00 [facility] Meningococcal 2012-01-21 Completed University of Vaccine 00:00:00 [facility] TDAP 2012-01-21 Completed University of 00:00:00 [facility] Varicella 2012-01-21 Completed University of (varivax)(chicken 00:00:00 [place] M edical pox) Branch HEPATITIS A 2012-01-21 Completed University of 00:00:00 [facility] Meningococcal 2012-01-21 Completed University of Vaccine 00:00:00 [facility] TDAP 2012-01-21 Completed University of 00:00:00 [facility] Varicella 2012-01-21 Completed University of (varivax)(chicken 00:00:00 [place] M edical pox) Branch HEPATITIS A 2012-01-21 Completed University of 00:00:00 [facility] Meningococcal 2012-01-21 Completed University of Vaccine 00:00:00 [facility] TDAP 2012-01-21 Completed University [facility] 00:00:00 [facility] [facility] Varicella 2012-01-21 Completed [facility] of (varivax)(chicken 00:00:00 [place] [facility] pox) [facility] HEPATITIS A 2012-01-21 Completed [facility] 00:00:00 [facility] Meningococcal 2012-01-21 Completed University of Vaccine 00:00:00 [facility] TDAP 2012-01-21 Completed [facility] 00:00:00 [facility] Varicella 2012-01-21 Completed [facility] (varivax)(chicken 00:00:00 [place] [facility] pox) [facility] HEPATITIS A 2012-01-21 Completed [facility] 00:00:00 [facility] Meningococcal 2012-01-21 Completed University of Vaccine 00:00:00 [facility] TDAP 2012-01-21 Completed [facility] 00:00:00 [facility] Varicella 2012-01-21 Completed [facility] (varivax)(chicken 00:00:00 [place] [facility] pox) [facility] HEPATITIS A 2012-01-21 Completed [facility] 00:00:00 [facility] Meningococcal 2012-01-21 Completed University of Vaccine 00:00:00 [facility] TDAP 2012-01-21 Completed [facility] 00:00:00 [facility] Varicella 2012-01-21 Completed [facility] (varivax)(chicken 00:00:00 [place] [facility] pox) [facility] HEPATITIS A 2012-01-21 Completed [facility] 00:00:00 [facility] Meningococcal 2012-01-21 Completed [facility] of Vaccine 00:00:00 [facility] TDAP 2012-01-21 Completed [facility] 00:00:00 [facility] Varicella 2012-01-21 Completed [facility] (varivax)(chicken 00:00:00 [place] [facility] pox) [facility] HEPATITIS A 2012-01-21 Completed [facility] 00:00:00 [facility] Meningococcal 2012-01-21 Completed [facility] of Vaccine 00:00:00 [facility] TDAP 2012-01-21 Completed [facility] 00:00:00 [facility] Varicella 2012-01-21 Completed [facility] (varivax)(chicken 00:00:00 [place] [facility] pox) Branch HEPATITIS A 2012-01-21 Completed [facility] 00:00:00 [facility] Meningococcal 2012-01-21 Completed [facility] of Vaccine 00:00:00 [facility] TDAP 2012-01-21 Completed [facility] 00:00:00 [facility] Varicella 2012-01-21 Completed [facility] of (varivax)(chicken 00:00:[address] [facility] ed[place] pox) Branch MMR 2005-01-08 Completed [facility] 00:00:00 [facility] MMR 2005-01-08 Completed [facility] 00:00:00 [facility] MMR 2005-01-08 Completed [facility] 00:00:00 [facility] MMR 2005-01-08 Completed [facility] 00:00:00 [facility] MMR 2005-01-08 Completed [facility] 00:00:00 [facility] MMR 2005-01-08 Completed [facility] of 00:00:00 [facility] MMR 2005-01-08 Completed [facility] 00:00:00 [facility] MMR 2005-01-08 Completed [facility] 00:00:00 [facility] MMR 2005-01-08 Completed [facility] of 00:00:00 [facility] MMR 2005-01-08 Completed [facility] 00:00:00 [facility] MMR 2005-01-08 Completed [facility] 00:00:00 [facility] MMR 2005-01-08 Completed [facility] 00:00:00 [facility] MMR 2005-01-08 Completed [facility] 00:00:00 [facility] MMR 2005-01-08 Completed [facility] 00:00:00 [facility] MMR 2005-01-08 Completed [facility] 00:00:00 [facility] MMR 2005-01-08 Completed [facility] 00:00:00 [facility] MMR 2005-01-08 Completed [facility] 00:00:00 [facility] MMR 2005-01-08 Completed [facility] of 00:00:00 [facility] MMR 2005-01-08 Completed [facility] 00:00:00 [facility] MMR 2005-01-08 Completed [facility] of 00:00:00 [facility] MMR 2005-01-08 Completed [facility] 00:00:00 [facility] DTAP 2004-12-07 Completed [facility] 00:00:00 [facility] MMR 2004-12-07 Completed [facility] 00:00:00 [facility] Pneumococcal 13 2004-12-07 Completed Universit y of Conjugate, PCV13 00:00:00 [place] [facility] (Prevnar 13) Branch Polio (IPV/OPV) 2004-12-07 Completed [facility] of 00:00:00 [facility] Varicella 2004-12-07 Completed [facility] (varivax)(chicken 00:00:00 [place] [facility] pox) [facility] DTAP 2004-12-07 Completed [facility] 00:00:00 [facility] MMR 2004-12-07 Completed [facility] 00:00:00 [facility] Pneumococcal 13 2004-12-07 Completed Universit y of Conjugate, PCV13 00:00:00 [facility] dical (Prevnar 13) Branch Polio (IPV/OPV) 2004-12-07 Completed [facility]it y of 00:00:00 [facility] Varicella 2004-12-07 Completed [facility] (varivax)(chicken 00:00:00 [place] [facility] pox) [facility] DTAP 2004-12-07 Completed [facility] 00:00:00 [facility] MMR 2004-12-07 Completed [facility] of 00:00:00 [facility] Pneumococcal 13 2004-12-07 Completed Universit y of Conjugate, PCV13 00:00:00 [facility] dical (Prevnar 13) Branch Polio (IPV/OPV) 2004-12-07 Completed [facility]it y of 00:00:00 [facility] Varicella 2004-12-07 Completed [facility] (varivax)(chicken 00:00:00 [place] [facility] pox) [facility] DTAP 2004-12-07 Completed [facility] 00:00:00 [facility] MMR 2004-12-07 Completed [facility] 00:00:00 [facility] Pneumococcal 13 2004-12-07 Completed Universit y of Conjugate, PCV13 00:00:00 [place] [facility] (Prevnar 13) Branch Polio (IPV/OPV) 2004-12-07 Completed [facility] of 00:00:00 [facility] Varicella 2004-12-07 Completed [facility] (varivax)(chicken 00:00:00 [place] [facility] pox) [facility] DTAP 2004-12-07 Completed [facility] 00:00:00 [facility] MMR 2004-12-07 Completed [facility] 00:00:00 [facility] Pneumococcal 13 2004-12-07 Completed Universit y of Conjugate, PCV13 00:00:00 [facility] dical (Prevnar 13) Branch Polio (IPV/OPV) 2004-12-07 Completed [facility]it y of 00:00:00 [facility] Varicella 2004-12-07 Completed [facility] (varivax)(chicken 00:00:00 [place] [facility] pox) [facility] DTAP 2004-12-07 Completed [facility] 00:00:00 [facility] MMR 2004-12-07 Completed [facility] 00:00:00 [facility] Pneumococcal 13 2004-12-07 Completed Universit y of Conjugate, PCV13 00:00:00 [facility] dical (Prevnar 13) Branch Polio (IPV/OPV) 2004-12-07 Completed Universit y of 00:00:00 [facility] Varicella 2004-12-07 Completed [facility] of (varivax)(chicken 00:00:[address] [facility] [place] pox[place] Branch DTAP 2004-12-07 Completed [facility] 00:00:00 [facility] MMR 2004-12-07 Completed [facility] 00:00:00 [facility] Pneumococcal 13 2004-12-07 Completed Universit y of Conjugate, PCV13 00:00:00 [facility] dical (Prevnar 13) Branch Polio (IPV/OPV) 2004-12-07 Completed Univers[facility] y of 00:00:00 [facility] Varicella 2004-12-07 Completed [facility] (varivax)(chicken 00:00:00 [place] [facility] pox) [facility] DTAP 2004-12-07 Completed [facility] 00:00:00 [facility] MMR 2004-12-07 Completed [facility] 00:00:00 [facility] Pneumococcal 13 2004-12-07 Completed Universit y of Conjugate, PCV13 00:00:00 [facility] dical (Prevnar 13) Branch Polio (IPV/OPV) 2004-12-07 Completed Universit [facility] of 00:00:00 [facility] Varicella 2004-12-07 Completed [facility] (varivax)(chicken 00:00:00 [place] [facility] pox) Branch DTAP 2004-12-07 Completed [facility] 00:00:00 [facility] MMR 2004-12-07 Completed [facility] 00:00:00 [facility] Pneumococcal 13 2004-12-07 Completed Universit y of Conjugate, PCV13 00:00:00 [facility] dical (Prevnar 13) Branch Polio (IPV/OPV) 2004-12-07 Completed Univers[facility] of 00:00:00 [facility] Varicella 2004-12-07 Completed [facility] (varivax)(chicken 00:00:00 [place] [facility] pox) Branch DTAP 2004-12-07 Completed [facility] 00:00:00 [facility] MMR 2004-12-07 Completed [facility] 00:00:00 [facility] Pneumococcal 13 2004-12-07 Completed Universit y of Conjugate, PCV13 00:00:00 [facility] dical (Prevnar 13) Branch Polio (IPV/OPV) 2004-12-07 Completed Universit y of 00:00:00 [facility] Varicella 2004-12-07 Completed [facility] of (varivax)(chicken 00:00:[address] [facility] pox[place] Branch DTAP 2004-12-07 Completed [facility] 00:00:00 [facility] MMR 2004-12-07 Completed [facility] 00:00:00 [facility] Pneumococcal 13 2004-12-07 Completed Universit y of Conjugate, PCV13 00:00:00 [facility] dical (Prevnar 13) Branch Polio (IPV/OPV) 2004-12-07 Completed Universit y of 00:00:00 [facility] Varicella 2004-12-07 Completed [facility] (varivax)(chicken 00:00:00 [place] [facility] pox) [facility] DTAP 2004-12-07 Completed [facility] 00:00:00 [facility] MMR 2004-12-07 Completed [facility] 00:00:00 [facility] Pneumococcal 13 2004-12-07 Completed Universit y of Conjugate, PCV13 00:00:00 [facility] dical (Prevnar 13) Branch Polio (IPV/OPV) 2004-12-07 Completed Universit [facility] of 00:00:00 [facility] Varicella 2004-12-07 Completed [facility] of (varivax)(chicken 00:00:00 [place] [facility] pox) Branch DTAP 2004-12-07 Completed [facility] of 00:00:00 [facility] MMR 2004-12-07 Completed [facility] of 00:00:00 [facility] Pneumococcal 13 2004-12-07 Completed Universit y of Conjugate, PCV13 00:00:00 [facility] dical (Prevnar 13) Branch Polio (IPV/OPV) 2004-12-07 Completed Universit [facility] of 00:00:00 [facility] Varicella 2004-12-07 Completed [facility] of (varivax)(chicken 00:00:00 [place] [facility] pox) Branch DTAP 2004-12-07 Completed [facility] 00:00:00 [facility] MMR 2004-12-07 Completed [facility] 00:00:00 [facility] Pneumococcal 13 2004-12-07 Completed Universit y of Conjugate, PCV13 00:00:00 [facility] dical (Prevnar 13) Branch Polio (IPV/OPV) 2004-12-07 Completed Universit y of 00:00:00 [facility] Varicella 2004-12-07 Completed [facility] (varivax)(chicken 00:00:00 [place] [facility] pox) Branch DTAP 2004-12-07 Completed [facility] 00:00:00 [facility] MMR 2004-12-07 Completed [facility] 00:00:00 [facility] Pneumococcal 13 2004-12-07 Completed Universit y of Conjugate, PCV13 00:00:00 [facility] dical (Prevnar 13) Branch Polio (IPV/OPV) 2004-12-07 Completed Universit y of 00:00:00 [facility] Varicella 2004-12-07 Completed [facility] (varivax)(chicken 00:00:00 [place] [facility] pox) Branch DTAP 2004-12-07 Completed [facility] 00:00:00 [facility] MMR 2004-12-07 Completed [facility] 00:00:00 [facility] Pneumococcal 13 2004-12-07 Completed Universit y of Conjugate, PCV13 00:00:00 [facility] dical (Prevnar 13) Branch Polio (IPV/OPV) 2004-12-07 Completed Universit y of 00:00:00 [facility] Varicella 2004-12-07 Completed [facility] (varivax)(chicken 00:00:00 [place] [facility] pox) Branch DTAP 2004-12-07 Completed [facility] of 00:00:00 [facility] MMR 2004-12-07 Completed [facility] 00:00:00 [facility] Pneumococcal 13 2004-12-07 Completed Universit y of Conjugate, PCV13 00:00:00 [place] [facility] (Prevnar 13) Branch Polio (IPV/OPV) 2004-12-07 Completed Universit y of 00:00:00 [facility] Varicella 2004-12-07 Completed [facility] (varivax)(chicken 00:00:00 [place] [facility] pox) Branch DTAP 2004-12-07 Completed [facility] 00:00:00 [facility] MMR 2004-12-07 Completed [facility] 00:00:00 [facility] Pneumococcal 13 2004-12-07 Completed Universit y of Conjugate, PCV13 00:00:00 [facility] dical (Prevnar 13) Branch Polio (IPV/OPV) 2004-12-07 Completed Universit y of 00:00:00 [facility] Varicella 2004-12-07 Completed [facility] (varivax)(chicken 00:00:00 [place] [facility] pox) Branch DTAP 2004-12-07 Completed [facility] of 00:00:00 [facility] MMR 2004-12-07 Completed [facility] of 00:00:00 [facility] Pneumococcal 13 2004-12-07 Completed Universit y of Conjugate, PCV13 00:00:00 [facility] dical (Prevnar 13) Branch Polio (IPV/OPV) 2004-12-07 Completed Universit y of 00:00:00 [facility] Varicella 2004-12-07 Completed [facility] (varivax)(chicken 00:00:00 [place] [facility] pox) Branch DTAP 2004-12-07 Completed [facility] 00:00:00 [facility] MMR 2004-12-07 Completed [facility] 00:00:00 [facility] Pneumococcal 13 2004-12-07 Completed Universit y of Conjugate, PCV13 00:00:00 [facility] dical (Prevnar 13) Branch Polio (IPV/OPV) 2004-12-07 Completed Univers[facility] y of 00:00:00 [facility] Varicella 2004-12-07 Completed [facility] (varivax)(chicken 00:00:00 [place] [facility] pox) Branch DTAP 2004-12-07 Completed [facility] of 00:00:00 [facility] MMR 2004-12-07 Completed [facility] of 00:00:00 [facility] Pneumococcal 13 2004-12-07 Completed Universit y of Conjugate, PCV13 00:00:00 [facility] dical (Prevnar 13) Branch Polio (IPV/OPV) 2004-12-07 Completed Univers[facility] y of 00:00:00 [facility] Varicella 2004-12-07 Completed [facility] of (varivax)(chicken 00:00:00 [place] [facility] pox) Branch DTAP 2001-03-04 Completed [facility] 00:00:00 [facility] HIB 3 Dose Schedule 2001-03-04 Completed Unive rsity of 00:00:00 [facility] Hep B, Adol or Pedi 2001-03-04 Completed Unive rsity of Dosage 00:00:00 [facility] Polio (IPV/OPV) 2001-03-04 Completed Universit [facility] of 00:00:00 [facility] DTAP 2001-03-04 Completed [facility] 00:00:00 [facility] HIB 3 Dose Schedule 2001-03-04 Completed Unive rsity of 00:00:00 [facility] Hep B, Adol or Pedi 2001-03-04 Completed Unive rsity of Dosage 00:00:00 [facility] Polio (IPV/OPV) 2001-03-04 Completed Universit [facility] of 00:00:00 [facility] DTAP 2001-03-04 Completed [facility] of 00:00:00 [facility] HIB 3 Dose Schedule 2001-03-04 Completed Unive rsity of 00:00:00 [facility] Hep B, Adol or Pedi 2001-03-04 Completed Unive rsity of Dosage 00:00:00 [facility] Polio (IPV/OPV) 2001-03-04 Completed Univers[facility] of 00:00:00 [facility] DTAP 2001-03-04 Completed [facility] 00:00:00 [facility] HIB 3 Dose Schedule 2001-03-04 Completed Unive rsity of 00:00:00 [facility] Hep B, Adol or Pedi 2001-03-04 Completed Unive rsity of Dosage 00:00:00 [facility] Polio (IPV/OPV) 2001-03-04 Completed Universit y of 00:00:00 [facility] DTAP 2001-03-04 Completed University of 00:00:00 [facility] HIB 3 Dose Schedule 2001-03-04 Completed Unive rsity of 00:00:00 [facility] Hep B, Adol or Pedi 2001-03-04 Completed Unive rsity of Dosage 00:00:00 [facility] Polio (IPV/OPV) 2001-03-04 Completed Universit [facility] of 00:00:00 [facility] DTAP 2001-03-04 Completed [facility] of 00:00:00 [facility] HIB 3 Dose Schedule 2001-03-04 Completed Unive rsity of 00:00:00 [facility] Hep B, Adol or Pedi 2001-03-04 Completed Unive rsity of Dosage 00:00:00 [facility] Polio (IPV/OPV) 2001-03-04 Completed Universit [facility] of 00:00:00 [facility] DTAP 2001-03-04 Completed [facility] of 00:00:00 [facility] HIB 3 Dose Schedule 2001-03-04 Completed Unive rsity of 00:00:00 [facility] Hep B, Adol or Pedi 2001-03-04 Completed Unive rsity of Dosage 00:00:00 [facility] Polio (IPV/OPV) 2001-03-04 Completed Universit y of 00:00:00 [facility] DTAP 2001-03-04 Completed [facility] of 00:00:00 [facility] HIB 3 Dose Schedule 2001-03-04 Completed Unive rsity of 00:00:00 [facility] Hep B, Adol or Pedi 2001-03-04 Completed Unive rsity of Dosage 00:00:00 [facility] Polio (IPV/OPV) 2001-03-04 Completed Universit [facility] of 00:00:00 [facility] DTAP 2001-03-04 Completed [facility] of 00:00:00 [facility] HIB 3 Dose Schedule 2001-03-04 Completed Unive rsity of 00:00:00 [place] [facility] Hep B, Adol or Pedi 2001-03-04 Completed Unive rsity of Dosage 00:00:00 [facility] Polio (IPV/OPV) 2001-03-04 Completed Univers[facility] 00:00:00 [facility] DTAP 2001-03-04 Completed [facility] of 00:00:00 [facility] HIB 3 Dose Schedule 2001-03-04 Completed Unive rsity of 00:00:00 [facility] Hep B, Adol or Pedi 2001-03-04 Completed Unive rsity of Dosage 00:00:00 [facility] Polio (IPV/OPV) 2001-03-04 Completed [facility] 00:00:00 [place] [facility] DTAP 2001-03-04 Completed [facility] 00:00:00 [place] [facility] HIB 3 Dose Schedule 2001-03-04 Completed Unive rsity of 00:00:00 [place] [facility] Hep B, Adol or Pedi 2001-03-04 Completed Unive rsity of Dosage 00:00:00 [facility] Polio (IPV/OPV) 2001-03-04 Completed Universit [facility] of 00:00:00 [place] [facility] DTAP 2001-03-04 Completed [facility] 00:00:00 [place] [facility] HIB 3 Dose Schedule 2001-03-04 Completed Unive rsity of 00:00:00 [place] [facility] Hep B, Adol or Pedi 2001-03-04 Completed Unive rsity of Dosage 00:00:00 [facility] Polio (IPV/OPV) 2001-03-04 Completed [facility] of 00:00:00 [facility] DTAP 2001-03-04 Completed [facility] 00:00:00 [facility] HIB 3 Dose Schedule 2001-03-04 Completed Unive rsity of 00:00:00 [place] [facility] Hep B, Adol or Pedi 2001-03-04 Completed Unive rsity of Dosage 00:00:00 [facility] Polio (IPV/OPV) 2001-03-04 Completed [facility] 00:00:00 [facility] DTAP 2001-03-04 Completed [facility] 00:00:00 [facility] HIB 3 Dose Schedule 2001-03-04 Completed Unive rsity of 00:00:00 [place] [facility] Hep B, Adol or Pedi 2001-03-04 Completed Unive rsity of Dosage 00:00:00 [facility] Polio (IPV/OPV) 2001-03-04 Completed [facility] of 00:00:00 [place] [facility] DTAP 2001-03-04 Completed [facility] 00:00:00 [facility] HIB 3 Dose Schedule 2001-03-04 Completed Unive rsity of 00:00:00 [place] [facility] Hep B, Adol or Pedi 2001-03-04 Completed Unive rsity of Dosage 00:00:00 [facility] Polio (IPV/OPV) 2001-03-04 Completed [facility] 00:00:00 [place] [facility] DTAP 2001-03-04 Completed [facility] 00:00:00 [place] [facility] HIB 3 Dose Schedule 2001-03-04 Completed Unive rsity of 00:00:00 [place] [facility] Hep B, Adol or Pedi 2001-03-04 Completed Unive rsity of Dosage 00:00:00 [facility] Polio (IPV/OPV) 2001-03-04 Completed [facility] 00:00:00 [facility] DTAP 2001-03-04 Completed [facility] 00:00:00 [facility] HIB 3 Dose Schedule 2001-03-04 Completed Unive rsity of 00:00:00 [facility] Hep B, Adol or Pedi 2001-03-04 Completed [facility] Dosage 00:00:00 [facility] Polio (IPV/OPV) 2001-03-04 Completed [facility] 00:00:00 [facility] DTAP 2001-03-04 Completed University of 00:00:00 [facility] HIB 3 Dose Schedule 2001-03-04 Completed [facility] 00:00:00 [facility] Hep B, Adol or Pedi 2001-03-04 Completed [facility] Dosage 00:00:00 [facility] Polio (IPV/OPV) 2001-03-04 Completed [facility] 00:00:00 [facility] DTAP 2001-03-04 Completed University of 00:00:00 [facility] HIB 3 Dose Schedule 2001-03-04 Completed [facility] 00:00:00 [facility] Hep B, Adol or Pedi 2001-03-04 Completed [facility] Dosage 00:00:00 [facility] Polio (IPV/OPV) 2001-03-04 Completed [facility] 00:00:00 [facility] DTAP 2001-03-04 Completed University [facility] 00:00:00 [facility] HIB 3 Dose Schedule 2001-03-04 Completed [facility] of 00:00:00 [facility] Hep B, Adol or Pedi 2001-03-04 Completed [facility] Dosage 00:00:00 [facility] Polio (IPV/OPV) 2001-03-04 Completed [facility] 00:00:00 [facility] DTAP 2001-03-04 Completed University of 00:00:00 [facility] HIB 3 Dose Schedule 2001-03-04 Completed [facility] 00:00:00 [facility] Hep B, Adol or Pedi 2001-03-04 Completed [facility] Dosage 00:00:00 [facility] Polio (IPV/OPV) 2001-03-04 Completed [facility] 00:00:00 [facility] DTAP 2000-03-05 Completed University [facility] 00:00:00 [facility] HIB 3 Dose Schedule 2000-03-05 Completed [facility] rs[facility] of 00:00:00 [facility] Hep B, Adol or Pedi 2000-03-05 Completed [facility] Dosage 00:00:00 [facility] Polio (IPV/OPV) 2000-03-05 Completed [facility] 00:00:00 [facility] DTAP 2000-03-05 Completed University of 00:00:00 [facility] HIB 3 Dose Schedule 2000-03-05 Completed [facility] of 00:00:00 [facility] Hep B, Adol or Pedi 2000-03-05 Completed [facility] Dosage 00:00:00 [facility] Polio (IPV/OPV) 2000-03-05 Completed [facility] 00:00:00 [facility] DTAP 2000-03-05 Completed University of 00:00:00 [facility] HIB 3 Dose Schedule 2000-03-05 Completed [facility] of 00:00:00 [facility] Hep B, Adol or Pedi 2000-03-05 Completed [facility] of Dosage 00:00:00 [facility] Polio (IPV/OPV) 2000-03-05 Completed [facility] 00:00:00 [facility] DTAP 2000-03-05 Completed University of 00:00:00 [facility] HIB 3 Dose Schedule 2000-03-05 Completed [facility] 00:00:00 [facility] Hep B, Adol or Pedi 2000-03-05 Completed [facility] Dosage 00:00:00 [facility] Polio (IPV/OPV) 2000-03-05 Completed [facility] 00:00:00 [facility] DTAP 2000-03-05 Completed University of 00:00:00 [facility] HIB 3 Dose Schedule 2000-03-05 Completed [facility] of 00:00:00 [facility] Hep B, Adol or Pedi 2000-03-05 Completed [facility] of Dosage 00:00:00 [facility] Polio (IPV/OPV) 2000-03-05 Completed [facility] 00:00:00 [facility] DTAP 2000-03-05 Completed University of 00:00:00 [facility] HIB 3 Dose Schedule 2000-03-05 Completed [facility] of 00:00:00 [facility] Hep B, Adol or Pedi 2000-03-05 Completed [facility] of Dosage 00:00:00 [facility] Polio (IPV/OPV) 2000-03-05 Completed [facility] 00:00:00 [facility] DTAP 2000-03-05 Completed University of 00:00:00 [facility] HIB 3 Dose Schedule 2000-03-05 Completed [facility] rs[facility] of 00:00:00 [facility] Hep B, Adol or Pedi 2000-03-05 Completed [facility] of Dosage 00:00:00 [facility] Polio (IPV/OPV) 2000-03-05 Completed [facility] 00:00:00 [facility] DTAP 2000-03-05 Completed University of 00:00:00 [facility] HIB 3 Dose Schedule 2000-03-05 Completed [facility] of 00:00:00 [facility] Hep B, Adol or Pedi 2000-03-05 Completed [facility] of Dosage 00:00:00 [facility] Polio (IPV/OPV) 2000-03-05 Completed [facility] 00:00:00 [facility] DTAP 2000-03-05 Completed University of 00:00:00 [facility] HIB 3 Dose Schedule 2000-03-05 Completed [facility] of 00:00:00 [facility] Hep B, Adol or Pedi 2000-03-05 Completed [facility] of Dosage 00:00:00 [facility] Polio (IPV/OPV) 2000-03-05 Completed [facility] 00:00:00 [facility] DTAP 2000-03-05 Completed University of 00:00:00 [facility] HIB 3 Dose Schedule 2000-03-05 Completed [facility] of 00:00:00 [facility] Hep B, Adol or Pedi 2000-03-05 Completed [facility] of Dosage 00:00:00 [facility] Polio (IPV/OPV) 2000-03-05 Completed [facility] 00:00:00 [facility] DTAP 2000-03-05 Completed University of 00:00:00 [facility] HIB 3 Dose Schedule 2000-03-05 Completed [facility] rs[facility] of 00:00:00 [facility] Hep B, Adol or Pedi 2000-03-05 Completed [facility] of Dosage 00:00:00 [facility] Polio (IPV/OPV) 2000-03-05 Completed [facility] 00:00:00 [facility] DTAP 2000-03-05 Completed University of 00:00:00 [facility] HIB 3 Dose Schedule 2000-03-05 Completed [facility] of 00:00:00 [facility] Hep B, Adol or Pedi 2000-03-05 Completed [facility] of Dosage 00:00:00 [facility] Polio (IPV/OPV) 2000-03-05 Completed [facility] 00:00:00 [facility] DTAP 2000-03-05 Completed University of 00:00:00 [facility] HIB 3 Dose Schedule 2000-03-05 Completed [facility] rs[facility] of 00:00:00 [facility] Hep B, Adol or Pedi 2000-03-05 Completed [facility] of Dosage 00:00:00 [facility] Polio (IPV/OPV) 2000-03-05 Completed [facility] 00:00:00 [facility] DTAP 2000-03-05 Completed University of 00:00:00 [facility] HIB 3 Dose Schedule 2000-03-05 Completed [facility]ive rs[facility] of 00:00:00 [facility] Hep B, Adol or Pedi 2000-03-05 Completed [facility] of Dosage 00:00:00 [facility] Polio (IPV/OPV) 2000-03-05 Completed [facility] 00:00:00 [facility] DTAP 2000-03-05 Completed University of 00:00:00 [facility] HIB 3 Dose Schedule 2000-03-05 Completed [facility] rs[facility] of 00:00:00 [facility] Hep B, Adol or Pedi 2000-03-05 Completed [facility]ive [facility]ity of Dosage 00:00:00 [facility] Polio (IPV/OPV) 2000-03-05 Completed [facility] 00:00:00 [facility] DTAP 2000-03-05 Completed University of 00:00:00 [facility] HIB 3 Dose Schedule 2000-03-05 Completed [facility] of 00:00:00 [facility] Hep B, Adol or Pedi 2000-03-05 Completed [facility]ive [facility]ity of Dosage 00:00:00 [facility] Polio (IPV/OPV) 2000-03-05 Completed [facility] 00:00:00 [facility] DTAP 2000-03-05 Completed University of 00:00:00 [facility] HIB 3 Dose Schedule 2000-03-05 Completed [facility]ive rsity of 00:00:00 [facility] Hep B, Adol or Pedi 2000-03-05 Completed [facility]ive [facility] of Dosage 00:00:00 [facility] Polio (IPV/OPV) 2000-03-05 Completed [facility] 00:00:00 [facility] DTAP 2000-03-05 Completed University of 00:00:00 [facility] HIB 3 Dose Schedule 2000-03-05 Completed [facility]ive [facility]ity of 00:00:00 [facility] Hep B, Adol or Pedi 2000-03-05 Completed [facility] of Dosage 00:00:00 [facility] Polio (IPV/OPV) 2000-03-05 Completed [facility] 00:00:00 [facility] DTAP 2000-03-05 Completed University of 00:00:00 [facility] HIB 3 Dose Schedule 2000-03-05 Completed [facility]ive [facility] of 00:00:00 [facility] Hep B, Adol or Pedi 2000-03-05 Completed [facility] of Dosage 00:00:00 [facility] Polio (IPV/OPV) 2000-03-05 Completed [facility] 00:00:00 [facility] DTAP 2000-03-05 Completed University of 00:00:00 [facility] HIB 3 Dose Schedule 2000-03-05 Completed [facility] of 00:00:00 [facility] Hep B, Adol or Pedi 2000-03-05 Completed [facility] of Dosage 00:00:00 [facility] Polio (IPV/OPV) 2000-03-05 Completed [facility] 00:00:00 [facility] DTAP 2000-03-05 Completed University of 00:00:00 [facility] HIB 3 Dose Schedule 2000-03-05 Completed [facility] of 00:00:00 [facility] Hep B, Adol or Pedi 2000-03-05 Completed [facility] of Dosage 00:00:00 [facility] Polio (IPV/OPV) 2000-03-05 Completed [facility] 00:00:00 [facility] DTAP 1999 Completed University of 00:00:00 [facility] HIB 3 Dose Schedule 1999 Completed [facility] of 00:00:00 [facility] Hep B, Adol or Pedi 1999 Completed [facility] of Dosage 00:00:00 [facility] Polio (IPV/OPV) 1999 Completed [facility] 00:00:00 [facility] DTAP 1999 Completed University [facility] 00:00:00 [facility] HIB 3 Dose Schedule 1999 Completed [facility] of 00:00:00 [facility] Hep B, Adol or Pedi 1999 Completed [facility] of Dosage 00:00:00 [facility] Polio (IPV/OPV) 1999 Completed [facility] 00:00:00 [facility] DTAP 1999 Completed University of 00:00:00 [facility] HIB 3 Dose Schedule 1999 Completed [facility] rsity of 00:00:00 [facility] Hep B, Adol or Pedi 1999 Completed [facility] of Dosage 00:00:00 [facility] Polio (IPV/OPV) 1999 Completed [facility] 00:00:00 [facility] DTAP 1999 Completed University of 00:00:00 [facility] HIB 3 Dose Schedule 1999 Completed [facility] of 00:00:00 [facility] Hep B, Adol or Pedi 1999 Completed [facility]ity of Dosage 00:00:00 [facility] Polio (IPV/OPV) 1999 Completed [facility] 00:00:00 [facility] DTAP 1999 Completed University of 00:00:00 [facility] HIB 3 Dose Schedule 1999 Completed [facility] of 00:00:00 [facility] Hep B, Adol or Pedi 1999 Completed [facility]ive [facility] of Dosage 00:00:00 [facility] Polio (IPV/OPV) 1999 Completed [facility] 00:00:00 [facility] DTAP 1999 Completed [facility] 00:00:00 [facility] HIB 3 Dose Schedule 1999 Completed [facility] of 00:00:00 [facility] Hep B, Adol or Pedi 1999 Completed [facility] of Dosage 00:00:00 [facility] Polio (IPV/OPV) 1999 Completed [facility] 00:00:00 [facility] DTAP 1999 Completed [facility] 00:00:00 [facility] HIB 3 Dose Schedule 1999 Completed [facility] of 00:00:00 [facility] Hep B, Adol or Pedi 1999 Completed [facility]ive [facility] of Dosage 00:00:00 [facility] Polio (IPV/OPV) 1999 Completed [facility] 00:00:00 [facility] DTAP 1999 Completed University of 00:00:00 [facility] HIB 3 Dose Schedule 1999 Completed [facility] of 00:00:00 [facility] Hep B, Adol or Pedi 1999 Completed [facility] of Dosage 00:00:00 [facility] Polio (IPV/OPV) 1999 Completed [facility] 00:00:00 [facility] DTAP 1999 Completed University of 00:00:00 [facility] HIB 3 Dose Schedule 1999 Completed [facility]ive rsity of 00:00:00 [facility] Hep B, Adol or Pedi 1999 Completed [facility]ive [facility] of Dosage 00:00:00 [facility] Polio (IPV/OPV) 1999 Completed [facility] 00:00:00 [facility] DTAP 1999 Completed [facility] 00:00:00 [facility] HIB 3 Dose Schedule 1999 Completed [facility] of 00:00:00 [facility] Hep B, Adol or Pedi 1999 Completed [facility] of Dosage 00:00:00 [facility] Polio (IPV/OPV) 1999 Completed [facility] 00:00:00 [facility] DTAP 1999 Completed [facility] 00:00:00 [facility] HIB 3 Dose Schedule 1999 Completed [facility]ive rsity of 00:00:00 [facility] Hep B, Adol or Pedi 1999 Completed [facility] of Dosage 00:00:00 [facility] Polio (IPV/OPV) 1999 Completed [facility] 00:00:00 [facility] DTAP 1999 Completed [facility] 00:00:00 [facility] HIB 3 Dose Schedule 1999 Completed [facility] rs[facility] of 00:00:00 [facility] Hep B, Adol or Pedi 1999 Completed [facility] of Dosage 00:00:00 [facility] Polio (IPV/OPV) 1999 Completed [facility] 00:00:00 [facility] DTAP 1999 Completed [facility] 00:00:00 [facility] HIB 3 Dose Schedule 1999 Completed [facility] rsity of 00:00:00 [facility] Hep B, Adol or Pedi 1999 Completed [facility] of Dosage 00:00:00 [facility] Polio (IPV/OPV) 1999 Completed [facility] 00:00:00 [facility] DTAP 1999 Completed [facility] 00:00:00 [facility] HIB 3 Dose Schedule 1999 Completed [facility] of 00:00:00 [facility] Hep B, Adol or Pedi 1999 Completed [facility] of Dosage 00:00:00 [facility] Polio (IPV/OPV) 1999 Completed [facility] 00:00:00 [facility] DTAP 1999 Completed [facility] 00:00:00 [facility] HIB 3 Dose Schedule 1999 Completed [facility] of 00:00:00 [facility] Hep B, Adol or Pedi 1999 Completed [facility] of Dosage 00:00:00 [facility] Polio (IPV/OPV) 1999 Completed [facility] 00:00:00 [facility] DTAP 1999 Completed [facility] 00:00:00 [facility] HIB 3 Dose Schedule 1999 Completed [facility] of 00:00:00 [facility] Hep B, Adol or Pedi 1999 Completed [facility] of Dosage 00:00:00 [facility] Polio (IPV/OPV) 1999 Completed [facility] 00:00:00 [facility] DTAP 1999 Completed [facility] 00:00:00 [facility] HIB 3 Dose Schedule 1999 Completed [facility]ive [facility] of 00:00:00 [facility] Hep B, Adol or Pedi 1999 Completed [facility] of Dosage 00:00:00 [facility] Polio (IPV/OPV) 1999 Completed [facility] 00:00:00 [facility] DTAP 1999 Completed [facility] 00:00:00 [facility] HIB 3 Dose Schedule 1999 Completed [facility] of 00:00:00 [facility] Hep B, Adol or Pedi 1999 Completed [facility] of Dosage 00:00:00 [facility] Polio (IPV/OPV) 1999 Completed [facility] 00:00:00 [facility] DTAP 1999 Completed [facility] 00:00:00 [facility] HIB 3 Dose Schedule 1999 Completed [facility] of 00:00:00 [facility] Hep B, Adol or Pedi 1999 Completed [facility] of Dosage 00:00:00 [facility] Polio (IPV/OPV) 1999 Completed [facility] 00:00:00 [facility] DTAP 1999 Completed [facility] 00:00:00 [facility] HIB 3 Dose Schedule 1999 Completed [facility] of 00:00:00 [facility] Hep B, Adol or Pedi 1999 Completed [facility] of Dosage 00:00:00 [facility] Polio (IPV/OPV) 1999 Completed [facility] 00:00:00 [facility] DTAP 1999 Completed [facility] 00:00:00 [facility] HIB 3 Dose Schedule 1999 Completed [facility] of 00:00:00 [facility] Hep B, Adol or Pedi 1999 Completed [facility] of Dosage 00:00:00 [facility] Polio (IPV/OPV) 1999 Completed [facility] 00:00:00 [facility] Vital Signs Vital Name Observation Time Observation Value Comments Source Systolic blood 2021-09-13 07:00:00 121 mm[Hg] Univer [facility]ity of pressure [facility] Diastolic blood 2021-09-13 07:00:00 84 mm[Hg] [facility]ive [facility] of pressure [facility] Heart rate 2021-09-13 07:00:00 98 /min [facility] Respiratory rate 2021-09-13 07:00:00 20 /min Univ ersity of [facility] Oxygen saturation in 2021-09-13 07:00:00 98 /min University of Arterial blood by [place] [employer] [facility] Body temperature 2021-09-13 05:34:00 37.61 Radha [facility] of [facility] Body height 2021-09-13 05:34:00 162.6 cm [facility] Body weight 2021-09-13 05:34:00 111.131 kg [facility] BMI 2021-09-13 05:34:00 42.05 kg/m2 [facility] Systolic blood 2020-12-31 20:48:00 127 mm[Hg] Univer [facility]ity of pressure [facility] Diastolic blood 2020-12-31 20:48:00 96 mm[Hg] Unive rsity of pressure [facility] Heart rate 2020-12-31 20:48:00 83 /min [facility] Body temperature 2020-12-31 20:48:00 36.83 Radha [facility] Respiratory rate 2020-12-31 20:48:00 18 /min [facility] Body weight 2020-12-31 20:48:00 110.678 kg [facility] BMI 2020-12-31 20:48:00 41.88 kg/m2 [facility] Oxygen saturation in 2020-12-31 20:48:00 100 /min University of Arterial blood by [employer] [facility] Systolic blood 2020-11-07 14:46:00 126 mm[Hg] Univer [facility]ity of pressure [facility] Diastolic blood 2020-11-07 14:46:00 76 mm[Hg] Unive rsity of pressure [facility] Heart rate 2020-11-07 14:46:00 92 /min [facility] Body temperature 2020-11-07 14:46:00 37 Radha [facility] Respiratory rate 2020-11-07 14:46:00 24 /min [facility] Body height 2020-11-07 14:46:00 162.6 cm [facility] Body weight 2020-11-07 14:46:00 113.581 kg [facility] BMI 2020-11-07 14:46:00 42.98 kg/m2 [facility] Systolic blood 2020-10-17 18:10:00 119 mm[Hg] Univer [facility]ity of pressure [facility] Diastolic blood 2020-10-17 18:10:00 72 mm[Hg] Unive rsity of pressure [facility] Heart rate 2020-10-17 18:10:00 99 /min [facility] Body temperature 2020-10-17 18:10:00 36.89 Radha [facility] Respiratory rate 2020-10-17 18:10:00 16 /min [facility] Body height 2020-10-17 18:10:00 162.6 cm [facility] Body weight 2020-10-17 18:10:00 117.113 kg [facility] BMI 2020-10-17 18:10:00 44.32 kg/m2 [facility] Systolic blood 2020-08-09 06:00:00 136 mm[Hg] Univer [facility]ity of pressure [facility] Diastolic blood 2020-08-09 06:00:00 75 mm[Hg] Unive rsity of pressure [facility] Heart rate 2020-08-09 06:00:00 93 /min [facility] Respiratory rate 2020-08-09 06:00:00 18 /min [facility] Oxygen saturation in 2020-08-09 06:00:00 92 /min [facility] of Arterial blood by [facility] Body temperature 2020-08-09 05:00:00 37.44 Radha [facility] of [facility] Body height 2020-08-09 05:00:00 162.6 cm [facility] Body weight 2020-08-09 05:00:00 114.306 kg [facility] BMI 2020-08-09 05:00:00 43.26 kg/m2 [facility] Systolic blood 2020-01-08 07:00:00 137 mm[Hg] Univer [facility]ity of pressure [facility] Diastolic blood 2020-01-08 07:00:00 82 mm[Hg] Unive rsity of pressure [facility] Heart rate 2020-01-08 07:00:00 80 /min Universi ty of [facility] Body temperature 2020-01-08 07:00:00 36.89 Radha Univ ersity of [facility] Respiratory rate 2020-01-08 07:00:00 11 /min Univ ersity of [facility] Oxygen saturation in 2020-01-08 07:00:00 95 /min University of Arterial blood by [facility] Pulse oximetry Branch Body weight 2020-01-08 05:39:00 108.863 kg Universi ty of [facility] Systolic blood 2020-01-08 07:00:00 137 mm[Hg] Univer sity of pressure [facility] Diastolic blood 2020-01-08 07:00:00 82 mm[Hg] Unive rsity of pressure [facility] Heart rate 2020-01-08 07:00:00 80 /min Universi ty of [facility] Body temperature 2020-01-08 07:00:00 36.89 Radha Univ ersity of [facility] Respiratory rate 2020-01-08 07:00:00 11 /min Univ ersity of [facility] Oxygen saturation in 2020-01-08 07:00:00 95 /min University of Arterial blood by [facility] Pulse oximetry Branch Body weight 2020-01-08 05:39:00 108.863 kg Universi ty of [facility] Procedures Procedure Date / Time Performed Performing Clinician [facility] e CONSENT/REFUSAL FOR 2021-09-13 05:29:08 Doctor Unassigned, No Un [facility] DIAGNOSIS AND Name Medical Branch TREATMENT NOTICE OF PRIVACY 2021-09-13 05:28:35 Doctor Unassigned, No [facility] [place] [facility] POCT TEST 2020-12-31 21:04:00 Perry Herndon [facility] URINALYSIS 2020-12-31 20:58:00 Perry Herndon [facility] CONSENT/REFUSAL FOR 2020-12-31 20:17:00 Doctor Unassigned, No Un [facility] [place] DIAGNOSIS AND Name Medical Branch TREATMENT POCT TEST 2020-10-17 19:59:00 Felipa Briseno [facility] GARDASIL 9 (HPV 9V) 2020-10-17 19:16:48 Felipa Briseno [facility] VACCINE [facility] CONSENT/REFUSAL FOR 2020-10-17 17:25:15 Doctor Unassigned, No [facility] [place] DI[facility] AND Name Medical [place] TREATMENT ASSIGNMENT OF BENEFITS 2020-10-17 17:24:54 Doctor Unassigned, No [facility] BASIC METABOLIC PANEL 2020-08-09 05:20:00 Morena Benton [facility] (NA, K, CL, CO2, Medical Branch GLUCOSE, BUN, CREATININE, CA) CBC WITH DIFF 2020-08-09 05:20:00 Morena Benton [facility] POCT TEST 2020-08-09 05:05:00 Morena Benton [facility] URINALYSIS 2020-08-09 05:03:00 Morena Benton [facility] NOTICE OF PRIVACY 2020-08-09 04:47:00 Doctor Unassigned, No [facility] [facility] [place] CONSENT/REFUSAL FOR 2020-08-09 04:46:34 Doctor Unassigned, No [facility] [place] DIAG[facility] AND Name Medical [place] TREATMENT XR CHEST 1 VW 2020-01-08 06:19:33 El Hussein [facility] LIPASE 2020-01-08 06:14:00 El Hussein [facility] TROPONIN I 2020-01-08 06:14:00 El Hussein [facility] HEPATIC FUNCTION PANEL 2020-01-08 06:14:00 El Hussein [facility] ([id number]) [facility] (ALB,T.PRO,BILI T,BU/BC,ALT,AST,ALK PHOS) BASIC METABOLIC PANEL 2020-01-08 06:14:00 El Hussein [facility] (NA, K, CL, CO2, Medical Branch GLUCOSE, BUN, CREATININE, CA) CBC WITH DIFF 2020-01-08 06:14:00 El Hussein [facility] URINALYSIS 2020-01-08 06:14:00 El Hussein [facility] POCT TEST 2020-01-08 06:13:00 El Hussein [facility] EKG-12 LEAD 2020-01-08 05:54:25 El Hussein [facility] Encounters Start End Encounter Admission Attending Care Care Encounter Source Date/Time Date/Time Type Type Clinicians Facility Department ID 2021-04-02 Emergency [facility] [id number] [facility] 2021-09-13 2021-09-13 Emergency X [facility] ERT [id number] Univers 00:42:00 02:04:00 PRAKASH [facility] 2021-09-13 2021-09-13 Emergency [facility] [id number] Univers 00:42:00 02:04:00 Prakash Sykes THERESA [id number] i ty [facility] 4.2.7.2.686 [phone] [address] 2021-03-02 2021-03-02 Telephone [facility] [id number] Univers 00:00:00 00:00:00 Felipa Messina FINANCIAL REPORTING CONSULTANT [id number] ity [facility] 4.2.7.2.686 [place]ander as MATERNAL [phone] Med ical & CHILD [address] [place] [address] 2021-02-19 2021-02-19 [facility] [id number] 4L-20 Univers 08:15:00 08:15:00 [facility] [id number] [facility] 2021-02-19 2021-02-19 Outpatient R AKINSIPE, [facility] [id number] Univers 08:15:00 08:15:00 FELIPA ity o f [facility] 2021-02-06 2021-02-06 Outpatient R AKINSIPE, [facility] [id number] 4L-20 Univers 10:30:00 10:30:00 FELIPA [id number] ity o f [facility] 2021-02-06 2021-02-06 Outpatient R AKINSIPE, [facility] [id number] Univers 10:30:00 10:30:00 FELIPA ity o [facility] 2020-12-31 2020-12-31 Emergency [facility] [id number] Univers 16:05:00 18:56:00 Annabella Alman[facility] [id number] ity [facility] 4.2.7.2.686 [place] [facility] [phone] [facility] 084 [place] 2020-12-26 2020-12-26 Outpatient [facility] [id number] Univers 16:00:00 16:00:00 [id number] ity of [facility] 2020-12-25 2020-12-25 Telephone [facility] [id number] Univers 00:00:00 00:00:00 Felipa Messina FINANCIAL REPORTING CONSULTANT 350.1.13.10 ity [facility] 4.2.7.2.686 [place] as MATERNAL [phone] [facility] ical & CHILD [address] [place] [address] 2020-12-24 2020-12-24 Nurse Lise Garcia [id number] Univers 00:00:00 00:00:00 Triage MARCIO 350.1.13.10 it y of [facility] 4.2.7.2.686 [place] as [id number] [facility] 019 Branch 2020-11-07 2020-11-07 Office [facility] [id number] Univers 09:33:35 11:41:19 Visit Felipa Messina FINANCIAL REPORTING CONSULTANT 350.1.13.10 ity of [facility] 4.2.7.2.686 [place] MATERNAL [id number] [facility] & CHILD [address] [place] [address] 2020-11-07 2020-11-07 Outpatient [facility] [id number] 4L-20 Univers 09:30:00 09:30:00 FELIPA [id number] ity o f [facility] 2020-11-07 2020-11-07 Outpatient R [facility] [id number] Univers 09:30:00 09:30:00 FELIPA ity o f [facility] 2020-11-03 2020-11-03 Telephone [facility] [id number] Univers 00:00:00 00:00:00 Felipa C FINANCIAL REPORTING CONSULTANT 350.1.13.10 ity of [facility] 4.2.7.2.686 [place] as MATERNAL [id number] [facility] & CHILD [address] [place] [address] 2020-11-02 2020-11-02 Telephone [facility] [id number] Univers 00:00:00 00:00:00 Felipa C FINANCIAL REPORTING CONSULTANT 350.1.13.10 ity of [facility] 4.2.7.2.686 [place] as MATERNAL [id number] [facility] CHILD [address] [place] [address] 2020-11-01 2020-11-01 Refill [facility] [id number] Univers 00:00:00 00:00:00 Felipa C FINANCIAL REPORTING CONSULTANT 350.1.13.10 ity of [facility] 4.2.7.2.686 [place] as MATERNAL [id number] [facility] & CHILD [address] [place] [address] 2020-11-01 2020-11-01 Letter ELDA Jonas [id number] Univers 00:00:00 00:00:00 (Out) Jake [facility] 350.1.13.10 i ty of [facility] 4.2.7.2.686 [place] [phone] [address] 2020-10-27 2020-10-27 Outpatient R [facility] [id number] Univers 15:30:00 15:30:00 [id number] ity of [facility] 2020-10-27 2020-10-27 Outpatient R [facility] [id number] Univers 15:30:00 15:30:00 ity of [facility] 2020-10-19 2020-10-19 Telephone [facility] [id number] Univers 00:00:00 00:00:00 Felipa Messina FINANCIAL REPORTING CONSULTANT 350.1.13.10 ity of [facility] 4.2.7.2.686 [place] as MATERNAL [id number] [facility] & CHILD [address] [place] [address] 2020-10-17 2020-10-17 Office [facility] [id number] Univers 12:46:36 14:56:59 Visit Felipa Messina FINANCIAL REPORTING CONSULTANT 350.1.13.10 ity of [facility] 4.2.7.2.686 [place] as MATERNAL [id number] [facility] & [address] 2020-10-17 2020-10-17 Outpatient R [facility] [id number] Univers 13:00:00 13:00:00 FELIPA mills o [facility] 2020-10-17 2020-10-17 Orders Doctor GREGG [id number] Univers 00:00:00 00:00:00 Only Unassigned, MARCIO 350.1.13.10 ity of [facility] 4.2.7.2.686 [place]ander as [phone] [facility] 009 Branch 2020-08-08 2020-08-09 Emergency [facility] 1.2.840.114 [id number] Univers 22:53:00 01:02:00 Morena Yost 350.1.13.10 ity of [place] 4.2.7.2.686 [place] [facility] [id number] [facility] 084 [place] 2020-08-08 2020-08-08 Emergency [facility] [id number] Univers 22:53:00 22:53:00 MORENA mills [facility] 2020-08-08 2020-08-08 Orders Doctor MARYSOL 1.2.840.114 [id number] Univers 00:00:00 00:00:00 Only Unassigned, MARCIO 350.1.13.10 ity of [place] [facility] 4.2.7.2.686 [facility] [phone] [facility] 009 Branch 2020-01-08 2020-01-08 Emergency El Hussein [facility] 1.2.840.114 [id number] 00:31:00 02:30:00 T [facility] 350.1.13.10 [place] 4.2.7.2.686 [place] [id number] [facility] 2020-01-08 2020-01-08 Emergency El Hussein [facility] [id number] Univers 00:31:00 02:30:00 T [facility] 350.1.13.10 i ty of [place] 4.2.7.2.686 [facility] s [place] [id number] [facility] [address] [place] 2020-01-08 2020-01-08 Emergency X EL HUSSEIN [facility] ERT [id number] Univers 00:31:00 00:31:00 ity [facility] Results Test Description Test Time Test Comments Results Result Comments Source URINALYSIS 2020-12-31 21:40:37 Test Item Value Reference Range Interpretation Comme nts APPEARANCE (test code = Hazy Clear A 6878194391) COLOR (test code = 4776426976) Yellow Yellow PH (test code = 7303781674) 4.8-8.0 SP GRAVITY (test code = 1.003-1.030 2047762338) GLU U QUAL (test code = Normal Normal 1830447411) BLOOD (test code = 6298283334) 2+ Negative A KETONES (test code = 8289251382) Negative Negative PROTEIN (test code = 2887-8) Negative Negative UROBILIN (test code = Normal Normal 2372384814) BILIRUBIN (test code = Negative Negative 2796152202) NITRITE (test code = 5970604232) Negative Negative LEUK MAXIMINO (test code = Negative Negative 9430487115) RBC/HPF (test code = 9136946865) See_Comment [Automated message] The system which ge nerated this result transmit jill reference range: 0 - 3 HP F. The reference range was not used to interpret th is result as normal/abnormal . WBC/HPF (test code = 9808263425) See_Comment [Automated message] The system which ge nerated this result transmit jill reference range: 0 - 5 HP F. The reference range was not used to interpret th is result as normal/abnormal . BACTERIA (test code = Few Negative A 8044302991) MUCOUS (test code = 9163008304) Slight Negative LPF A SQ EPITH (test code = HPF 7810651387) HYAL CAST (test code = See_Comment [Aut omated message] The 5048800967) system which ge nerated this result transmit jill reference range: <=2 LPF. The reference range was not u sed to interpret this result as normal/abnormal . Lab Interpretation (test code = Abnormal 30516-6) [facility] [id number] 21:04:00 Test Item Value Reference Range Interpretation Comments POCT PREG (test code = 1605) negative On board controls acceptable with present C Line (test code = 3574) POCT PREG LOT # (test code = 3575) [id number] POCT PREG TEST DATE (test 06/01/2022 code = 3576) Lab Interpretation (test code = Normal 54076-7) [facility] [id number] 20:00:00 Test Item Value Reference Range Interpretation Comments POCT PREG (test code = 1605) Negative On board controls acceptable with C Yes Line (test code = 3574) POCT PREG LOT # (test code = 3575) POCT PREG TEST DATE (test code = 3576) [facility] [id number] 20:00:00 Test Item Value Reference Range Interpretation Comments POCT PREG (test code = 1605) Negative On board controls acceptable with C Yes Line (test code = 3574) POCT PREG LOT # (test code = 3575) POCT PREG TEST DATE (test code = 3576) [facility] 05:59:35 Test Item Value Reference Range Interpretation Comments APPEARANCE (test code = Clear Clear 2450842497) COLOR (test code = Yellow Yellow 6904472963) PH (test code = 4.8-8.0 9375365019) SP GRAVITY (test code = 1.003-1.030 2065925476) GLU U QUAL (test code = Normal Normal 9073674891) BLOOD (test code = 1+ Negative A 1038146614) KETONES (test code = Negative Negative 2776011250) PROTEIN (test code = Negative Negative 2887-8) UROBILIN (test code = Normal Normal 4681755771) BILIRUBIN (test code = Negative Negative 9533658773) NITRITE (test code = Negative Negative 1448113850) LEUK MAXIMINO (test code = Negative Negative 5000499374) RBC/HPF (test code = See_Comment [Autom ated message] 9421077625) The system [employer] generated this result transmitted ref erence range: 0 - 3 HP F. The reference range was not used to int erpret this result as normal/abnormal . WBC/HPF (test code = See_Comment [Autom ated message] 0062458088) The system [employer] generated this result transmitted ref erence range: 0 - 5 HP F. The reference range was not used to int erpret this result as normal/abnormal . BACTERIA (test code = Few Negative A 1208954174) MUCOUS (test code = Slight Negative LPF A 0354283992) SQ EPITH (test code = HPF 4638162557) Lab Interpretation (test Abnormal code = 14407-9) [facility] Metabolic Panel (NA, K, CL, CO2, GLUCOSE, BUN, CREATININE, CA)2020-08-09 05:38:20 Test Item Value Reference Range Interpretation Comments NA (test code = 137 mmol/L 135-145 9328561713) K (test code = 3.8 mmol/L 3.5-5.0 2312715154) CL (test code = 102 mmol/L 98-108 6388234338) CO2 TOTAL (test code = 26 mmol/L 23-31 3612920761) AGAP (test code = 2-16 0197672746) BUN (test code = 9 mg/dL 7-23 4778614978) GLUCOSE (test code = 83 mg/dL 70-110 5387831031) CREATININE (test code 0.67 mg/dL 0.50-1.04 = 7611674066) CALCIUM (test code = 9.4 mg/dL 8.6-10.6 1627198002) eGFR Calculation mL/min/1.73m2 (Non-) (test code = 9684136156) eGFR Calculation mL/min/1.73m2 () (test code = 9631624985) AVA (test code = AVA) Association of Glomerular Filtration Rate (GFR) and Staging of Kidney Disease* + -+ + ---+| GFR (mL/min/1.73 m2) ?| With Kidney Damage ?| ?Without Kidney Damage+ -------+ ------+ ---------+| ?>90 ?| ?Stage one ?| ? Normal ?+ --+ -+ ----+| ?60-89 ?| ?Stage two ?| ? Decreased GFR ? + -+ + ---+| ?30-59 ?| ?Stage three ?| ? Stage three ? + -+ + ---+| ?15-29 ?| ?Stage four ? | ? Stage four ?+ --+ -+ ----+| ?<15 (or dialysis) ? ?| ?Stage five ? | ? Stage five ?+ --+ -+ ----+ *Each stage assumes the associated GFR level has been in effect for at least three months. ?Stages 1 to 5, with or without kidney disease, indicate chronic kidney disease. Notes: Determination of stages one and two (with eGFR >59mL/min/1.73 m2) requires estimation of kidney damage for at least three months as defined by structural or functional abnormalities of the kidney, manifested by either:Pathological abnormalities or Markers of kidney damage (including abnormalities in the composition of the blood or urine or abnormalities in imaging tests). [facility] [id number] 05:05:00 Test Item Value Reference Range Interpretation Comments POCT PREG (test code = 1605) neg On board controls acceptable with yes C Line (test code = 3574) POCT PREG LOT # (test code = 3575) [id number] POCT PREG TEST DATE (test 04/01/2022 code = 3576) Lab Interpretation (test code = Normal 18847-7) [facility] [id number] 06:59:00 Test Item Value Reference Range Interpretation Comments TROPONIN I (test <0.012 See_Comment [Automated code = 7533234889) message] The system which generated this result transmitted reference range : <=0.034 ng/mL. The reference range was not used to interpr et this result as normal/abnormal . AVA (test code = Equal or Less than AVA) 0.034 ng/ml---Normal ?Note: Cardiac troponin begins to rise 3-4 hours after the onset of ischemia. Repeat in 4-6 hours if the sample was drawn within 3-4 hours of the onset of the symptom and found normal. Between 0.035 and 0.120 ng/mL--- Borderline. Questionable myocardial injury or necrosis ? ?Note: Serial measurement may be necessary to confirm or exclude the diagnosis of myocardial injury or necrosis; Clinical correlation (symptoms, EKGs, imaging studies, and others) required; Repeat in 4-6 hours if clinically indicated. ? Equal or Higher than 0.121 ng/mL---Abnormal. Myocardial Injury or Necrosis Likely ? Biotin has been reported to cause a negative bias, interpret results relative to patient's use of biotin. ? Lab Interpretation Normal (test code = 06328-4) [facility] (NA, K, CL, CO2, GLUCOSE, BUN, CREATININE, CA)2020-01-08 06:48:00 Test Item Value Reference Range Interpretation Comments NA (test code = 138 mmol/L 135-145 7663862032) K (test code = 4.0 mmol/L 3.5-5 0822323795) CL (test code = 106 mmol/L 98-108 5809865119) CO2 TOTAL (test code = 24 mmol/L 23-31 8997866531) AGAP (test code = 2-16 0545093433) BUN (test code = 10 mg/dL 7-23 5973815337) GLUCOSE (test code = 91 mg/dL 70-110 2702135987) CREATININE (test code 0.64 mg/dL 0.5-1.04 = 2148284658) CALCIUM (test code = 9.3 mg/dL 8.6-10.6 4652450972) eGFR Calculation mL/min/1.73m2 (Non-) (test code = 6979910764) eGFR Calculation mL/min/1.73m2 () (test code = 7783128124) AVA (test code = AVA) Association of Glomerular Filtration Rate (GFR) and Staging of Kidney Disease* + -+ + ---+| GFR (mL/min/1.73 m2) ?| With Kidney Damage ?| ?Without Kidney Damage+ -------+ ------+ ---------+| ?>90 ?| ?Stage one ?| ? Normal ?+ --+ -+ ----+| ?60-89 ?| ?Stage two ?| ? Decreased GFR ? + -+ + ---+| ?30-59 ?| ?Stage three ?| ? Stage three ? + -+ + ---+| ?15-29 ?| ?Stage four ? | ? Stage four ?+ --+ -+ ----+| ?<15 (or dialysis) ? ?| ?Stage five ? | ? Stage five ?+ --+ -+ ----+ *Each stage assumes the associated GFR level has been in effect for at least three months. ?Stages 1 to 5, with or without kidney disease, indicate chronic kidney disease. Notes: Determination of stages one and two (with eGFR >59mL/min/1.73 m2) requires estimation of kidney damage for at least three months as defined by structural or functional abnormalities of the kidney, manifested by either:Pathological abnormalities or Markers of kidney damage (including abnormalities in the composition of the blood or urine or abnormalities in imaging tests). [facility] (ALB, T.PRO, BILI T, BU/BC, ALT, AST, ALK PHOS)2020-01-08 06:48:00 Test Item Value Reference Range Interpretation Comments TOTAL BILI (test code = 0930050804) 0.2 mg/dL 0.1-1.1 BILI UNCON (test code = 5702378887) 0.4 mg/dL 0.1-1.1 BILI CONJ (test code = 9722121296) 0.0 mg/dL 0-0.3 T PROTEIN (test code = 7203897192) 7.4 g/dL 6.3-8.2 ALBUMIN (test code = 6198076954) 4.6 g/dL 3.5-5 ALK PHOS (test code = 2749655839) 45 U/L 34-122 ALTv (test code = 1742-6) 22 U/L 5-35 AST(SGOT) (test code = 2049701985) 27 U/L 13-40 Lab Interpretation (test code = Normal 36889-0) [facility] [id number] 06:48:00 Test Item Value Reference Range Interpretation Comments LIPASE (test code = 8227516113) 78 U/L 0-220 Lab Interpretation (test code = Normal 96661-8) [facility]2020-08-08 06:41:00 Test Item Value Reference Range Interpretation Comments APPEARANCE (test code = Clear Clear 2711695395) COLOR (test code = Colorless Yellow A 9678008383) PH (test code = 4.8-8.0 7937036274) SP GRAVITY (test code = 1.003-1.030 4297092955) GLU U QUAL (test code = Normal Normal 4022135348) BLOOD (test code = 1+ Negative A 3323355890) KETONES (test code = Negative Negative 8640769261) PROTEIN (test code = Negative Negative 2887-8) UROBILIN (test code = Normal Normal 8099365404) BILIRUBIN (test code = Negative Negative 3595775168) NITRITE (test code = Negative Negative 0171277606) LEUK MAXIMINO (test code = Negative Negative 6908111134) RBC/HPF (test code = See_Comment [Autom ated message] 4680632025) The system [employer] generated this result transmit jill reference range : 0 - 3 HPF. The refe rence range was not u sed to interpret th is result as normal/abnormal . WBC/HPF (test code = See_Comment [Autom ated message] 7058044139) The system [employer] generated this result transmit jill reference range : 0 - 5 HPF. The refe rence range was not u sed to interpret th is result as normal/abnormal . BACTERIA (test code = Few Negative A 3346118955) SQ EPITH (test code = HPF 7138445705) Lab Interpretation (test Abnormal code = 28537-4) [facility] with [id number] 06:31:00 Test Item Value Reference Range Interpretation Comments WBC (test code = See_Comment [Automated 6690-2) message] The sy stem which generated this result transmitted reference range : 4.30 - 11.10 10*3/?L. The reference range was not used to interpret this result as normal/abnormal . RBC (test code = See_Comment [Automated 789-8) message] The sy stem which generated this result transmitted reference range : 3.93 - 5.25 10*6/?L. The reference range was not used to interpret this result as normal/abnormal . HGB (test code = 13.3 g/dL 11.6-15 718-7) HCT (test code = 39.7 % 35.7-45.2 4544-3) MCV (test code = 83.4 fL 80.6-95.5 787-2) MCH (test code = 27.9 pg 25.9-32.8 785-6) MCHC (test code = 33.5 g/dL 31.6-35.1 786-4) RDW-SD (test code = 39.7 fL 39-49.9 57070-7) RDW-CV (test code = 13.2 % 12-15.5 788-0) PLT (test code = See_Comment H [Automated 777-3) message] The sy stem which generated this result transmitted reference range : 166 - 358 10*3/ ?L. The reference r karishma was not used to interpret this result as normal/abnormal . MPV (test code = 10.2 fL 9.5-12.9 18915-4) NRBC/100 WBC (test See_Comment [Automat ed code = 3374422832) message] The system which generated this result transmitted reference range : 0.0 - 10.0 /100 WBCs. The refer ence range was not u sed to interpret th is result as normal/abnormal . NRBC x10^3 (test code <0.01 See_Comment [Auto mated = 6370004074) message] The s ystem which generated this result transmitted reference range : 10*3/?L. The reference range was not used to interpret this result as normal/abnormal . GRAN MAT (NEUT) % 48.6 % (test code = 770-8) IMM GRAN % (test code 0.60 % = 9186359873) LYMPH % (test code = 41.9 % 736-9) MONO % (test code = 6.3 % 5905-5) EOS % (test code = 2.2 % 713-8) BASO % (test code = 0.4 % 706-2) GRAN MAT x10^3(ANC) 5.09 10*3/uL 1.88-7.09 (test code = 2953504075) IMM GRAN x10^3 (test 0.06 10*3/uL 0-0.06 code = 8373058960) LYMPH x10^3 (test code 4.38 10*3/uL 1.32-3.29 H = 731-0) MONO x10^3 (test code 0.66 10*3/uL 0.33-0.92 = 742-7) EOS x10^3 (test code = 0.23 10*3/uL 0.03-0.39 711-2) BASO x10^3 (test code 0.04 10*3/uL 0.01-0.07 = 704-7) Lab Interpretation Abnormal (test code = 51659-6) [id number]00 Test Item Value Reference Range Interpretation Comments POCT PREG (test code = 1605) negative On board controls acceptable with positive C Line (test code = 3574) POCT PREG LOT # (test code = 3575) [id number] POCT PREG TEST DATE (test code = 3576) Lab Interpretation (test code = Normal 50978-0) [facility]"
--- NOTE | 2022-01-10 15:50 | EDPHYS ---
Physician Documentation [facility] Name: Gisele Arechiga Age: 21 yrs Sex: Female : 2000 Arrival Date: 01/10/2022 Time: 15:12 Bed 10 Private MD: ED Physician Jose Munoz HPI: 01/10 15:49 This 21 yrs old Female presents to ER via Ambulatory with complaints of Cyst. ms3 15:49 "Cyst". Description: The affected area is moderate sized, confluent, draining, ms3 erythematous, warm. Onset: The symptoms/episode began/occurred gradually, and became worse 4 day(s) ago. Possible cause(s): unknown. Associated signs and symptoms: Pertinent positives: discharge, drainage, Pertinent negatives: fever. Modifying factors: the symptoms are alleviated by nothing, the symptoms are aggravated by walking, pressure, sitting. Severity of symptoms: At their worst the symptoms were severe, in the emergency department the symptoms are unchanged. ROS: 15:49 Constitutional: Negative for fever, and chills. Neck: Negative for injury, pain, and ms3 swelling, Cardiovascular: Negative for chest pain, and palpitations. Respiratory: Negative for shortness of breath, cough, wheezing, and pleuritic chest pain, Abdomen/GI: Negative for abdominal pain, nausea, vomiting, diarrhea, and constipation, MS/Extremity: Negative for injury and deformity. 15:49 Skin: Positive for abscess. 15:49 All other systems are negative. Exam: 15:49 Constitutional: This is a well developed, well nourished patient who is awake, alert, ms3 and in no acute distress. Neck: Trachea midline, no cervical lymphadenopathy. Supple, full range of motion without nuchal rigidity, or vertebral point tenderness. No Meningismus. Chest/axilla: Normal chest wall appearance and motion. Nontender with no deformity. Cardiovascular: Regular rate and rhythm with a normal S1 and S2. No gallops, murmurs, or rubs. Normal PMI, no JVD. No pulse deficits. Respiratory: Lungs have equal breath sounds bilaterally, clear to auscultation and percussion. No rales, rhonchi or wheezes noted. No increased work of breathing, no retractions or nasal flaring. Abdomen/GI: Soft, non-tender, with normal bowel sounds. No distension or tympany. No guarding or rebound. No evidence of tenderness throughout. Psych: Awake, alert, with orientation to person, place and time. Behavior, mood, and affect are within normal limits. 15:49 Skin: abscess, that is moderate sized, of the sacrum, with drainage, that is purulent, with surrounding cellulitis. Vital Signs: 16:04 BP 105 / 60; Pulse 76; Resp 16; Temp 98.2; Pulse Ox 100% on R/A; iw MDM: 15:47 Patient medically screened. ms3 15:49 Data reviewed: vital signs, nurses notes, and as a result, I will discharge patient. ms3 Counseling: I had a detailed discussion with the patient and/or guardian regarding: the historical points, exam findings, and any diagnostic results supporting the discharge/admit diagnosis, the need for outpatient follow up, to return to the emergency department if symptoms worsen or persist or if there are any questions or concerns that arise at home. Administered Medications: No medications were administered Disposition Summary: 01/10/22 15:49 Discharge Ordered Location: Home ms3 Condition: Stable ms3 Diagnosis - Pilonidal cyst with abscess ms3 Followup: ms3 - With: Jaime Mcgill DO - When: 2 - 3 days - Reason: Re-evaluation by your physician Discharge Instructions: - Discharge Summary Sheet ms3 - Incision and Drainage ms3 Forms: - Medication Reconciliation Form ms3 - Thank You Letter ms3 - Work release form eb - Antibiotic Education ms3 - Prescription Opioid Use ms3 Prescriptions: - Doxycycline Hyclate 100 mg Oral Tablet - take 1 tablet by ORAL route every 12 hours; 20 tablet; Refills: 0, Product ms3 Selection Permitted Signatures: Jose Munoz DO DO ms3
--- NOTE | 2022-01-10 16:06 | ER ---
Nurse's Notes [facility] Name: Gisele Arechiga Age: 21 yrs Sex: Female : 2000 Arrival Date: 01/10/2022 Time: 15:12 Bed 10 Private MD: Diagnosis: Pilonidal cyst with abscess Presentation: 01/10 16:05 Chief complaint: Patient states: pilonidal cyst that is draining. Coronavirus screen: iw At this time, the client does not indicate any symptoms associated with coronavirus-19. Ebola Screen: Patient negative for fever greater than or equal to 101.5 degrees Fahrenheit, and additional compatible Ebola Virus Disease symptoms Patient denies exposure to infectious person. Patient denies travel to an Ebola-affected area in the 21 days before illness onset. No symptoms or risks identified at this time. Initial Sepsis Screen: Does the patient meet any 2 criteria? No. Patient's initial sepsis screen is negative. Does the patient have a suspected source of infection? No. Patient's initial sepsis screen is negative. Risk Assessment: Do you want to hurt yourself or someone else? Patient reports no desire to harm self or others. Onset of symptoms was January 10, 2022. 16:05 Method Of Arrival: Ambulatory iw 16:05 Acuity: IRIS 4 iw Vital Signs: 16:04 BP 105 / 60; Pulse 76; Resp 16; Temp 98.2; Pulse Ox 100% on R/A; iw ED Course: 15:12 Patient arrived in ED. mr 15:17 Jose Munoz DO is Attending Physician. ms3 15:37 Linda Ellis RN is Primary Nurse. iw 15:49 Jaime Mcgill DO is Referral Physician. ms3 16:05 Triage completed. iw 16:05 Arm band placed on. iw Administered Medications: No medications were administered Outcome: 15:49 Discharge ordered by MD. ms3 16:06 Patient left the ED. iw Signatures: Lisa Eduardo Irene, RN RN iw Jose Munoz DO DO ms3
[2022-01-10 16:59] VITALS: BP 105/60; TEMP 98.2; O2SAT 100
== END 2022-01-10 16:06 | disposition home or self-care (01) ==
LOC: ER 15:08
DX: L05.01 Pilonidal cyst with abscess (principal)
CPT/HCPCS: 99281

== ENCOUNTER 2022-02-06 12:22 | Emergency (ER) | payer SELFPAY ==
--- OUTSIDE RECORDS SUMMARY | 2022-02-06 12:29 | XMS REPORT | Continuity of Care Document ---
:2000 Author Organization [facility] t Address [address] [place] [address] Care Team Providers Name Role Phone CHUY ULLOA Primary Care Physician Unavailable PRAKASH ALLAN Attending Clinician Unavailable Prakash Wells Attending Clinician [place] WHCNPFelipa Attending Clinician [phone] FELIPA BRISENO Attending Clinician Unavailable Danita BROUSSARD, Annabella Almanzar Attending Clinician Lise Garcia RN Attending Clinician Unavailable Jake Jonas MD Attending Clinician Doctor Unassigned, [place] Attending Clinician Unavailable Morena Benton DO Attending [...] nivers exam exam 5-18 ity of 00:00: [address] Obesity Obesity Disease Active Univers (BMI (BMI 5-18 ity of 30-39.9) 30-39.9) 00:00: [place] 00 [facility] Pilonidal Pilonidal Disease Active Uni vers cyst cyst 5-18 ity of 00:00: [place] 00 [facility] No known No known Disease Unive rs active active ity of problems problems [facility] Allergies, Adverse Reactions, Alerts Allergy Allergy Status [...] 9-16 ity of 00:00: [place] 00 Medical [place] Social History Social Habit Start Date Stop Date Quantity Comments Source History of tobacco Cigarette Smoker University of use [facility] Exposure to Not sure University of SARS-CoV-2 (event) [facility] Branch History [facility] o f Alcohol Frequency [facility] [place] [facility] Branch History [facility] o f Alcohol Std Drinks [facility] History [facility] o f Alcohol Binge [facility] Alcohol intake 2020-12-31 2020-12-31 Current drinker Unive rsity of 00:00:00 00:00:00 of alcohol [facility] (finding) Branch Cigarettes smoked 2020-10-17 2020-10-17 Univers ity of current (pack per 00:00:00 00:00:00 [facility] [place] [facility] ) - Reported Branch Tobacco use and 2020-10-17 2020-10-17 Former user Universi ty of exposure 00:00:00 00:00:00 [facility] Tobacco Comment 2020-10-17 2020-10-17 8-10 cigarettes a Un iversity of 00:00:00 00:00:00 day [facility] Alcohol Comment 2020-10-17 2020-10-17 socially Universit y of 00:00:00 00:00:00 [facility] Sex Assigned At [birth year] Universit y of 00:00:00 00:00:00 [facility] Smoking Status Start Date Stop Date Source Current every day smoker 2020-10-17 00:00:00 Uni versity [facility] Unknown if ever smoked [facility] Medications Ordered Filled Start Stop Current Ordering Indication Dosage Frequency Signature Comments Components Source Medication Medication Date Date Medication? Clinician (SIG) Name Name clindamycin 2021- No 450mg 450 mg, U timothy (CLEOCIN 4-14 04-14 Oral, ity of HCL) 08:00: 06:55 ONCE, 1 [place] capsule 450 00 :00 dose, On Medi walter mg [facility] 09/13/21 at 0300, SHALOM
Re ason for Anti-Infec tive: Documented Infection< br>Documen jill Infection Site: Skin / Soft Tissue
Duration of Therapy: Other (see Comments)< br>Restric jill use approved by: ED PROVIDER<b r>Indicati on for Clindamyci n use: pilonidal cyst allergic to PCN clindamycin 2021- No [id number] 450mg Take 3 Univers 150 mg -14 04-25 capsules ity of capsule 00:00: 04:59 by mouth 3 [place] as 00 :00 (three) Medical times [place] daily for 10 days. norgestimat Yes [id number] 1{tbl} Take 1 Univers e-ethinyl 6-08 tablet by ity o f estradioL 00:00: mouth [place] (ORTHO 00 daily. [facility] 0.18/0.215/ 0.25 mg-35 mcg (28) tablet norgestimat Yes [id number] 1{tbl} Take 1 Univers e-ethinyl 6-08 tablet by ity o f estradioL 00:00: mouth [place] (ORTHO 00 daily. [facility] 0.18/0.215/ 0.25 mg-35 mcg (28) tablet norgestimat Yes [id number] 1{tbl} Take 1 Univers e-ethinyl 6-08 tablet by ity o f estradioL 00:00: mouth [place] [facility] [address] 0.18/0.215/ 0.25 mg-35 mcg (28) tablet norgestimat 2021-0 Yes [id number] 1{tbl} Take 1 Univers e-ethinyl 6-08 tablet by ity o f estradioL 00:00: mouth [place] (ORTHO 00 daily. [place] [address],) 0.18/0.215/ 0.25 mg-35 mcg (28) tablet norgestimat 2021-0 Yes [id number] 1{tbl} Take 1 Univers e-ethinyl 6-08 tablet by ity o f estradioL 00:00: mouth [place] (ORTHO 00 daily. [facility] [place] [address] 0.18/0.215/ 0.25 mg-35 mcg (28) tablet norgestimat 2021-0 Yes [id number] 1{tbl} Take 1 Univers e-ethinyl 6-08 tablet by ity o f estradioL 00:00: mouth [place] (ORTHO 00 daily. [facility] [address] 0.18/0.215/ 0.25 mg-35 mcg (28) tablet norgestimat 2021-0 Yes [id number] 1{tbl} Take 1 Univers e-ethinyl 6-08 tablet by ity o f estradioL 00:00: mouth [place] (ORTHO 00 daily. [place] [address],) 0.18/0.215/ 0.25 mg-35 mcg (28) tablet medroxyPROG 2021-0 2021- No [id number] 10mg Take 1 Univers ESTERone 5-20 05-31 tablet by ity o f (PROVERA) 00:00: 04:59 mouth [place] 10 mg 00 :00 daily for Medical tablet 10 days. [place] medroxyPROG 2021-0 2021- No [id number] 10mg Take 1 Univers ESTERone 5-20 05-31 tablet by ity o f (PROVERA) 00:00: 04:59 mouth [place] 10 mg 00 :00 daily for Medical tablet 10 days. [place] medroxyPROG 2021-0 1- No [id number] 10mg Take 1 Univers ESTERone 5-20 05-31 tablet by ity o f (PROVERA) 00:00: 04:59 mouth [place] 10 mg 00 :00 daily for Medical tablet 10 days. [place] medroxyPROG 2020-0 2020- No [id number] 10mg Take 1 Univers ESTERone 5-20 05-31 [...] 18:21: mouth [place] 18 every Medical morning. [place] phentermine Yes 37.5mg Take 37.5 Univers 37.5 [...] 18:21: mouth [place] 18 every Medical morning. [place] phentermine Yes 37.5mg Take 37.5 Univers 37.5 mg 5-18 mg by ity of capsule 18:21: mouth [place] 18 every Medical morning. [place] phentermine Yes 37.5mg Take 37.5 Univers 37.5 mg 5-18 mg by ity of capsule 18:21: mouth [place] 18 every Medical morning. [place] phentermine Yes 37.5mg Take 37.5 Univers 37.5 mg 5-18 mg by ity of capsule 18:21: mouth [place] 18 every Medical morning. [place] phentermine Yes 37.5mg Take 37.5 Univers 37.5 mg 5-18 mg by ity of capsule 18:21: mouth [place] 18 every Medical morning. [place] phentermine Yes 37.5mg Take 37.5 Univers 37.5 mg 5-18 mg by ity of capsule 18:21: mouth [place] 18 every Medical morning. [place] phentermine Yes 37.5mg Take 37.5 Univers 37.5 mg 5-18 mg by ity of capsule 18:21: mouth [place] 18 every Medical morning. [place] phentermine Yes 37.5mg Take 37.5 Univers 37.5 mg 5-18 mg by ity of capsule 18:21: mouth [place] 18 every Medical morning. [place] phentermine Yes 37.5mg Take 37.5 Univers 37.5 mg 5-18 mg by ity of capsule 18:21: mouth [place] 18 every Medical morning. [place] phentermine Yes 37.5mg Take 37.5 Univers 37.5 mg 5-18 mg by ity of capsule 13:21: mouth [place] 18 every Medical morning. [place] phentermine Yes 37.5mg Take 37.5 Univers 37.5 mg 5-18 mg by ity of capsule 13:21: mouth [place] 18 every Medical morning. [place] ketorolac 2020- No 30mg 30 mg, [place] rs (TORADOL) 3-10 03-10 Slow IV ity of injection 05:45: 05:42 [place], [place] 30 mg 00 :00 ONCE, 1 Medical dose, [place] 08/08/20 at 2345, SHALOM
[facility] : [...] Name HPV9 2020-10-17 Completed University of 00:00:00 [facility] HPV9 2020-10-17 Completed University of 00:00:00 [facility] HPV9 2020-10-17 Completed University of 00:00:00 [facility] HPV9 2020-10-17 Completed University of 00:00:00 [facility] HPV9 2020-10-17 Completed University of 00:00:00 [facility] HPV9 2020-10-17 Completed University of 00:00:00 [facility] HPV9 2020-10-17 Completed University of 00:00:00 [facility] HPV9 2020-10-17 Completed University of 00:00:00 [facility] HPV9 2020-10-17 Completed University of 00:00:00 [facility] HPV9 2020-10-17 Completed University of 00:00:00 [facility] HPV9 2020-10-17 Completed University of 00:00:00 [facility] HPV9 2020-10-17 Completed University of 00:00:00 [place] [facility] HPV9 2020-10-17 Completed University of 00:00:00 [place] [facility] HPV9 2020-10-17 Completed University of 00:00:00 [place] [facility] HPV9 2020-10-17 Completed University of 00:00:00 [place] [facility] HPV9 2020-10-17 Completed University of 00:00:00 [place] [facility] HPV9 2020-10-17 Completed University of 00:00:00 [place] [facility] HPV9 2020-10-17 Completed University of 00:00:00 [place] [facility] HPV9 2020-10-17 Completed University of 00:00:00 [place] [facility] HPV9 2020-10-17 Completed University of 00:00:00 [place] [facility] HPV9 2020-10-17 Completed University of 00:00:00 [facility] Branch HPV 2018-09-15 Completed University of 00:00:00 [facility] Branch Meningococcal 2018-09-15 Completed University of Vaccine 00:00:00 [place] [facility] HPV 2018-09-15 Completed University of 00:00:00 [place] [facility] Meningococcal 2018-09-15 Completed University of Vaccine 00:00:00 [place] [facility] HPV 2018-09-15 Completed University of 00:00:00 [place] [facility] Meningococcal 2018-09-15 Completed University of Vaccine 00:00:00 [place] [facility] HPV 2018-09-15 Completed University of 00:00:00 [place] [facility] Meningococcal 2018-09-15 Completed University of Vaccine 00:00:00 [place] [facility] HPV 2018-09-15 Completed University of 00:00:00 [place] [facility] Meningococcal 2018-09-15 Completed University of Vaccine 00:00:00 [place] [facility] HPV 2018-09-15 Completed University of 00:00:00 [place] [facility] Meningococcal 2018-09-15 Completed University of Vaccine 00:00:00 [place] [facility] HPV 2018-09-15 Completed University of 00:00:00 [place] [facility] Meningococcal 2018-09-15 Completed University of Vaccine 00:00:00 [place] [facility] HPV 2018-09-15 Completed University of 00:00:00 [place] [facility] Meningococcal 2018-09-15 Completed University of Vaccine 00:00:00 [place] [facility] HPV 2018-09-15 Completed University of 00:00:00 [place] [facility] Meningococcal 2018-09-15 Completed University of Vaccine 00:00:00 [facility] HPV 2018-09-15 Completed University of 00:00:00 [facility] Meningococcal 2018-09-15 Completed University of Vaccine 00:00:00 [facility] HPV 2018-09-15 Completed University of 00:00:00 [facility] Meningococcal 2018-09-15 Completed University of Vaccine 00:00:00 [facility] HPV 2018-09-15 Completed University of 00:00:00 [facility] Meningococcal 2018-09-15 Completed University of Vaccine 00:00:00 [facility] HPV 2018-09-15 Completed University of 00:00:00 [facility] Meningococcal 2018-09-15 Completed University of Vaccine 00:00:00 [facility] HPV 2018-09-15 Completed University of 00:00:00 [facility] Meningococcal 2018-09-15 Completed University of Vaccine 00:00:00 [facility] HPV 2018-09-15 Completed University of 00:00:00 [facility] Meningococcal 2018-09-15 Completed University of Vaccine 00:00:00 [facility] HPV 2018-09-15 Completed University of 00:00:00 [facility] Meningococcal 2018-09-15 Completed University of Vaccine 00:00:00 [facility] HPV 2018-09-15 Completed University of 00:00:00 [facility] Meningococcal 2018-09-15 Completed University of Vaccine 00:00:00 [facility] HPV 2018-09-15 Completed University of 00:00:00 [facility] Meningococcal 2018-09-15 Completed University of Vaccine 00:00:00 [facility] HPV 2018-09-15 Completed University of 00:00:00 [facility] Meningococcal 2018-09-15 Completed University of Vaccine 00:00:00 [facility] HPV 2018-09-15 Completed University of 00:00:00 [facility] Meningococcal 2018-09-15 Completed University of Vaccine 00:00:00 [facility] HPV 2018-09-15 Completed University of 00:00:00 [facility] Meningococcal 2018-09-15 Completed University of Vaccine 00:00:00 [facility] HEPATITIS A 2012-01-21 Completed University of 00:00:00 [facility] Meningococcal 2012-01-21 Completed University of Vaccine 00:00:00 [facility] TDAP 2012-01-21 Completed University of 00:00:00 [facility] Varicella 2012-01-21 Completed University of (varivax)(chicken 00:00:00 [place] [facility] pox) Branch HEPATITIS A 2012-01-21 Completed University of 00:00:00 [facility] Meningococcal 2012-01-21 Completed University of Vaccine 00:00:00 [facility] TDAP 2012-01-21 Completed University of 00:00:00 [facility] Varicella 2012-01-21 Completed University of (varivax)(chicken 00:00:00 [place] [facility] pox) Branch HEPATITIS A 2012-01-21 Completed University of 00:00:00 [facility] Meningococcal 2012-01-21 Completed University of Vaccine 00:00:00 [facility] TDAP 2012-01-21 Completed University of 00:00:00 [facility] Varicella 2012-01-21 Completed University of (varivax)(chicken 00:00:00 [place] [facility] pox) Branch HEPATITIS A 2012-01-21 Completed University of 00:00:00 [facility] Meningococcal 2012-01-21 Completed University of Vaccine 00:00:00 [facility] TDAP 2012-01-21 Completed University of 00:00:00 [facility] Varicella 2012-01-21 Completed University of (varivax)(chicken 00:00:00 [place] [facility] pox) Branch HEPATITIS A 2012-01-21 Completed University of 00:00:00 [facility] Meningococcal 2012-01-21 Completed University of Vaccine 00:00:00 [facility] TDAP 2012-01-21 Completed University of 00:00:00 [facility] Varicella 2012-01-21 Completed University of (varivax)(chicken 00:00:00 [place] [facility] pox) Branch HEPATITIS A 2012-01-21 Completed University of 00:00:00 [facility] Meningococcal 2012-01-21 Completed University of Vaccine 00:00:00 [facility] TDAP 2012-01-21 Completed University of 00:00:00 [facility] Varicella 2012-01-21 Completed University of (varivax)(chicken 00:00:00 [place] [facility] pox) Branch HEPATITIS A 2012-01-21 Completed University of 00:00:00 [facility] Meningococcal 2012-01-21 Completed University of Vaccine 00:00:00 [facility] TDAP 2012-01-21 Completed University of 00:00:00 [facility] Varicella 2012-01-21 Completed University of (varivax)(chicken 00:00:00 [place] [facility] pox) Branch HEPATITIS A 2012-01-21 Completed University of 00:00:00 [facility] Meningococcal 2012-01-21 Completed University of Vaccine 00:00:00 [facility] TDAP 2012-01-21 Completed University of 00:00:00 [facility] Varicella 2012-01-21 Completed University of (varivax)(chicken 00:00:00 [place] [facility] pox) Branch HEPATITIS A 2012-01-21 Completed University of 00:00:00 [facility] Meningococcal 2012-01-21 Completed University of Vaccine 00:00:00 [facility] TDAP 2012-01-21 Completed University of 00:00:00 [facility] Varicella 2012-01-21 Completed University of (varivax)(chicken 00:00:00 [place] [facility] pox) Branch HEPATITIS A 2012-01-21 Completed University of 00:00:00 [facility] Meningococcal 2012-01-21 Completed University of Vaccine 00:00:00 [facility] TDAP 2012-01-21 Completed University of 00:00:00 [facility] Varicella 2012-01-21 Completed University of (varivax)(chicken 00:00:00 [place] [facility] pox) Branch HEPATITIS A 2012-01-21 Completed University of 00:00:00 [facility] Meningococcal 2012-01-21 Completed University of Vaccine 00:00:00 [facility] TDAP 2012-01-21 Completed University of 00:00:00 [facility] Varicella 2012-01-21 Completed University of (varivax)(chicken 00:00:00 [place] [facility] ed[facility] pox) Branch HEPATITIS A 2012-01-21 Completed University of 00:00:00 [facility] Meningococcal 2012-01-21 Completed University of Vaccine 00:00:00 [facility] TDAP 2012-01-21 Completed University of 00:00:00 [facility] Varicella 2012-01-21 Completed University of (varivax)(chicken 00:00:00 [place] [facility] ed[facility] pox) Branch HEPATITIS A 2012-01-21 Completed University of 00:00:00 [facility] Meningococcal 2012-01-21 Completed University of Vaccine 00:00:00 [facility] TDAP 2012-01-21 Completed University of 00:00:00 [facility] Varicella 2012-01-21 Completed University of (varivax)(chicken 00:00:00 [place] [facility] ed[facility] pox) Branch HEPATITIS A 2012-01-21 Completed University of 00:00:00 [facility] Meningococcal 2012-01-21 Completed University of Vaccine 00:00:00 [facility] TDAP 2012-01-21 Completed University of 00:00:00 [facility] Varicella 2012-01-21 Completed University of (varivax)(chicken 00:00:00 [place] [facility] ed[facility] pox) Branch HEPATITIS A 2012-01-21 Completed University of 00:00:00 [facility] Meningococcal 2012-01-21 Completed University of Vaccine 00:00:00 [facility] TDAP 2012-01-21 Completed University of 00:00:00 [facility] Varicella 2012-01-21 Completed University of (varivax)(chicken 00:00:00 [place] [facility] pox) Branch HEPATITIS A 2012-01-21 Completed University of 00:00:00 [facility] Meningococcal 2012-01-21 Completed University of Vaccine 00:00:00 [facility] TDAP 2012-01-21 Completed University of 00:00:00 [facility] Varicella 2012-01-21 Completed University of (varivax)(chicken 00:00:00 [place] [facility] pox) Branch HEPATITIS A 2012-01-21 Completed University of 00:00:00 [facility] Meningococcal 2012-01-21 Completed University of Vaccine 00:00:00 [facility] TDAP 2012-01-21 Completed University of 00:00:00 [facility] Varicella 2012-01-21 Completed University of (varivax)(chicken 00:00:00 [place] [facility] ed[facility] pox) Branch HEPATITIS A 2012-01-21 Completed University of 00:00:00 [facility] Meningococcal 2012-01-21 Completed University of Vaccine 00:00:00 [facility] TDAP 2012-01-21 Completed University of 00:00:00 [facility] Varicella 2012-01-21 Completed University of (varivax)(chicken 00:00:00 [place] [facility] ed[facility] pox) Branch HEPATITIS A 2012-01-21 Completed University of 00:00:00 [facility] Meningococcal 2012-01-21 Completed University of Vaccine 00:00:00 [facility] TDAP 2012-01-21 Completed University of 00:00:00 [facility] Varicella 2012-01-21 Completed University of (varivax)(chicken 00:00:00 [place] [facility] pox) Branch HEPATITIS A 2012-01-21 Completed University of 00:00:00 [facility] Meningococcal 2012-01-21 Completed University of Vaccine 00:00:00 [facility] TDAP 2012-01-21 Completed University of 00:00:00 [facility] Varicella 2012-01-21 Completed University of (varivax)(chicken 00:00:00 [place] [facility] pox) Branch HEPATITIS A 2012-01-21 Completed University of 00:00:00 [facility] Meningococcal 2012-01-21 Completed University of Vaccine 00:00:00 [facility] TDAP 2012-01-21 Completed University of 00:00:00 [facility] Varicella 2012-01-21 Completed University of (varivax)(chicken 00:00:00 [facility] edical pox) Branch MMR 2005-01-08 Completed University of 00:00:00 [facility] MMR 2005-01-08 Completed University of 00:00:00 [facility] MMR 2005-01-08 Completed University of 00:00:00 [facility] MMR 2005-01-08 Completed University of 00:00:00 [facility] MMR 2005-01-08 Completed University of 00:00:00 [facility] MMR 2005-01-08 Completed University of 00:00:00 [facility] MMR 2005-01-08 Completed University of 00:00:00 [facility] MMR 2005-01-08 Completed University of 00:00:00 [facility] MMR 2005-01-08 Completed University of 00:00:00 [facility] MMR 2005-01-08 Completed University of 00:00:00 [facility] MMR 2005-01-08 Completed University of 00:00:00 [facility] MMR 2005-01-08 Completed University of 00:00:00 [facility] MMR 2005-01-08 Completed University of 00:00:00 [facility] MMR 2005-01-08 Completed University of 00:00:00 [facility] MMR 2005-01-08 Completed University of 00:00:00 [facility] MMR 2005-01-08 Completed University of 00:00:00 [facility] MMR 2005-01-08 Completed University of 00:00:00 [facility] MMR 2005-01-08 Completed University of 00:00:00 [facility] MMR 2005-01-08 Completed University of 00:00:00 [facility] MMR 2005-01-08 Completed University of 00:00:00 [facility] MMR 2005-01-08 Completed University of 00:00:00 [facility] DTAP 2004-12-07 Completed University of 00:00:00 [facility] MMR 2004-12-07 Completed University of 00:00:00 [facility] Pneumococcal 13 2004-12-07 Completed Universit y of Conjugate, PCV13 00:00:00 [place] [facility] (Prevnar 13) Branch Polio (IPV/OPV) 2004-12-07 Completed Universit y of 00:00:00 [facility] Branch Varicella 2004-12-07 Completed University of (varivax)(chicken 00:00:00 [place] [facility] pox) Branch DTAP 2004-12-07 Completed University of 00:00:00 [facility] MMR 2004-12-07 Completed University of 00:00:00 [facility] Pneumococcal 13 2004-12-07 Completed Universit y of Conjugate, PCV13 00:00:00 [facility] dical (Prevnar 13) Branch Polio (IPV/OPV) 2004-12-07 Completed Universit y of 00:00:00 [facility] Varicella 2004-12-07 Completed University of (varivax)(chicken 00:00:00 [place] [facility] pox) Branch DTAP 2004-12-07 Completed University of 00:00:00 [facility] MMR 2004-12-07 Completed University of 00:00:00 [facility] Pneumococcal 13 2004-12-07 Completed Universit y of Conjugate, PCV13 00:00:00 [facility] dical (Prevnar 13) Branch Polio (IPV/OPV) 2004-12-07 Completed Universit y of 00:00:00 [facility] Branch Varicella 2004-12-07 Completed University of (varivax)(chicken 00:00:00 [place] [facility] pox) Branch DTAP 2004-12-07 Completed University of 00:00:00 [facility] MMR 2004-12-07 Completed University of 00:00:00 [facility] Pneumococcal 13 2004-12-07 Completed Universit y of Conjugate, PCV13 00:00:00 [place] [facility] (Prevnar 13) Branch Polio (IPV/OPV) 2004-12-07 Completed Universit y of 00:00:00 [facility] Branch Varicella 2004-12-07 Completed University of (varivax)(chicken 00:00:00 [place] [facility] ed[facility] pox) Branch DTAP 2004-12-07 Completed University of 00:00:00 [facility] Branch MMR 2004-12-07 Completed University of 00:00:00 [facility] Branch Pneumococcal 13 2004-12-07 Completed Universit y of Conjugate, PCV13 00:00:00 [place] [facility] (Prevnar 13) [facility] Polio (IPV/OPV) 2004-12-07 Completed [facility] 00:00:00 [facility] Varicella 2004-12-07 Completed [facility] of (varivax)(chicken 00:00:00 [place] [facility] pox) [facility] DTAP 2004-12-07 Completed [facility] of 00:00:00 [facility] MMR 2004-12-07 Completed [facility] of 00:00:00 [facility] Pneumococcal 13 2004-12-07 Completed [facility]it [facility] of Conjugate, PCV13 00:00:00 [facility] dical (Prevnar 13) Branch Polio (IPV/OPV) 2004-12-07 Completed [facility] 00:00:00 [facility] Varicella 2004-12-07 Completed [facility] of (varivax)(chicken 00:00:00 [facility] edical pox) Branch DTAP 2004-12-07 Completed [facility] of 00:00:00 [facility] MMR 2004-12-07 Completed [facility] of 00:00:00 [facility] Pneumococcal 13 2004-12-07 Completed [facility] of Conjugate, PCV13 00:00:00 [facility] dical (Prevnar 13) Branch Polio (IPV/OPV) 2004-12-07 Completed [facility] 00:00:00 [facility] Varicella 2004-12-07 Completed [facility] (varivax)(chicken 00:00:00 [place] [facility] pox) [facility] DTAP 2004-12-07 Completed [facility] of 00:00:00 [facility] MMR 2004-12-07 Completed [facility] of 00:00:00 [facility] Pneumococcal 13 2004-12-07 Completed [facility] of Conjugate, PCV13 00:00:00 [facility] dical (Prevnar 13) Branch Polio (IPV/OPV) 2004-12-07 Completed [facility] 00:00:00 [facility] Varicella 2004-12-07 Completed [facility] of (varivax)(chicken 00:00:00 [place] [facility] pox) Branch DTAP 2004-12-07 Completed [facility] 00:00:00 [facility] MMR 2004-12-07 Completed [facility] 00:00:00 [facility] Pneumococcal 13 2004-12-07 Completed [facility] of Conjugate, PCV13 00:00:00 [facility] dical (Prevnar 13) Branch Polio (IPV/OPV) 2004-12-07 Completed [facility] 00:00:00 [facility] Varicella 2004-12-07 Completed [facility] (varivax)(chicken 00:00:00 [place] [facility] pox) [facility] DTAP 2004-12-07 Completed [facility] of 00:00:00 [facility] MMR 2004-12-07 Completed [facility] of 00:00:00 [facility] Pneumococcal 13 2004-12-07 Completed [facility] of Conjugate, PCV13 00:00:00 [facility] dical (Prevnar 13) Branch Polio (IPV/OPV) 2004-12-07 Completed [facility] 00:00:00 [facility] Varicella 2004-12-07 Completed [facility] of (varivax)(chicken 00:00:00 [facility] edical pox) Branch DTAP 2004-12-07 Completed [facility] of 00:00:00 [facility] MMR 2004-12-07 Completed [facility] of 00:00:00 [facility] Pneumococcal 13 2004-12-07 Completed [facility] of Conjugate, PCV13 00:00:00 [facility] dical (Prevnar 13) Branch Polio (IPV/OPV) 2004-12-07 Completed [facility] 00:00:00 [facility] Varicella 2004-12-07 Completed [facility] (varivax)(chicken 00:00:00 [place] [facility] pox) [facility] DTAP 2004-12-07 Completed [facility] of 00:00:00 [facility] MMR 2004-12-07 Completed [facility] of 00:00:00 [facility] Pneumococcal 13 2004-12-07 Completed [facility] of Conjugate, PCV13 00:00:00 [facility] dical (Prevnar 13) Branch Polio (IPV/OPV) 2004-12-07 Completed [facility] 00:00:00 [facility] Varicella 2004-12-07 Completed [facility] of (varivax)(chicken 00:00:00 [place] [facility] pox) Branch DTAP 2004-12-07 Completed [facility] of 00:00:00 [facility] MMR 2004-12-07 Completed [facility] of 00:00:00 [facility] Pneumococcal 13 2004-12-07 Completed [facility] of Conjugate, PCV13 00:00:00 [facility] dical (Prevnar 13) Branch Polio (IPV/OPV) 2004-12-07 Completed [facility] 00:00:00 [facility] Varicella 2004-12-07 Completed [facility] (varivax)(chicken 00:00:00 [place] [facility] pox) Branch DTAP 2004-12-07 Completed [facility] of 00:00:00 [facility] MMR 2004-12-07 Completed [facility] of 00:00:00 [facility] Pneumococcal 13 2004-12-07 Completed [facility] of Conjugate, PCV13 00:00:00 [facility] dical (Prevnar 13) Branch Polio (IPV/OPV) 2004-12-07 Completed [facility] 00:00:00 [facility] Varicella 2004-12-07 Completed [facility] of (varivax)(chicken 00:00:00 [place] [facility] pox) Branch DTAP 2004-12-07 Completed [facility] of 00:00:00 [facility] MMR 2004-12-07 Completed [facility] of 00:00:00 [facility] Pneumococcal 13 2004-12-07 Completed [facility] of Conjugate, PCV13 00:00:00 [facility] dical (Prevnar 13) Branch Polio (IPV/OPV) 2004-12-07 Completed [facility] 00:00:00 [facility] Varicella 2004-12-07 Completed [facility] (varivax)(chicken 00:00:00 [place] [facility] pox) [facility] DTAP 2004-12-07 Completed [facility] of 00:00:00 [facility] MMR 2004-12-07 Completed [facility] of 00:00:00 [facility] Pneumococcal 13 2004-12-07 Completed [facility] of Conjugate, PCV13 00:00:00 [facility] dical (Prevnar 13) Branch Polio (IPV/OPV) 2004-12-07 Completed [facility] 00:00:00 [facility] Varicella 2004-12-07 Completed [facility] of (varivax)(chicken 00:00:00 [place] [facility] pox) Branch DTAP 2004-12-07 Completed [facility] of 00:00:00 [facility] MMR 2004-12-07 Completed [facility] of 00:00:00 [facility] Pneumococcal 13 2004-12-07 Completed [facility] of Conjugate, PCV13 00:00:00 [place] [facility] (Prevnar 13) Branch Polio (IPV/OPV) 2004-12-07 Completed [facility] 00:00:00 [facility] Varicella 2004-12-07 Completed [facility] of (varivax)(chicken 00:00:00 [place] [facility] pox) Branch DTAP 2004-12-07 Completed [facility] of 00:00:00 [facility] MMR 2004-12-07 Completed [facility] of 00:00:00 [facility] Pneumococcal 13 2004-12-07 Completed [facility] of Conjugate, PCV13 00:00:00 [facility] dical (Prevnar 13) Branch Polio (IPV/OPV) 2004-12-07 Completed [facility] 00:00:00 [facility] Varicella 2004-12-07 Completed [facility] of (varivax)(chicken 00:00:00 [place] [facility] pox) Branch DTAP 2004-12-07 Completed [facility] of 00:00:00 [facility] MMR 2004-12-07 Completed [facility] of 00:00:00 [facility] Pneumococcal 13 2004-12-07 Completed [facility] of Conjugate, PCV13 00:00:00 [facility] dical (Prevnar 13) Branch Polio (IPV/OPV) 2004-12-07 Completed [facility] 00:00:00 [facility] Varicella 2004-12-07 Completed [facility] (varivax)(chicken 00:00:00 [place] [facility] pox) [facility] DTAP 2004-12-07 Completed [facility] of 00:00:00 [facility] MMR 2004-12-07 Completed [facility] of 00:00:00 [facility] Pneumococcal 13 2004-12-07 Completed [facility] of Conjugate, PCV13 00:00:00 [facility] dical (Prevnar 13) Branch Polio (IPV/OPV) 2004-12-07 Completed [facility] 00:00:00 [facility] Varicella 2004-12-07 Completed [facility] of (varivax)(chicken 00:00:00 [place] [facility] pox) Branch DTAP 2004-12-07 Completed [facility] of 00:00:00 [facility] MMR 2004-12-07 Completed [facility] of 00:00:00 [facility] Pneumococcal 13 2004-12-07 Completed [facility] of Conjugate, PCV13 00:00:00 [facility] dical (Prevnar 13) Branch Polio (IPV/OPV) 2004-12-07 Completed [facility] 00:00:00 [facility] Varicella 2004-12-07 Completed [facility] of (varivax)(chicken 00:00:00 [place] [facility] pox) Branch DTAP 2001-03-04 Completed [facility] of 00:00:00 [facility] HIB 3 Dose Schedule 2001-03-04 Completed Unive rsity of 00:00:00 [facility] Hep B, Adol or Pedi 2001-03-04 Completed Unive rsity of Dosage 00:00:00 [facility] Polio (IPV/OPV) 2001-03-04 Completed [facility] 00:00:00 [facility] DTAP 2001-03-04 Completed [facility] of 00:00:00 [facility] HIB 3 Dose Schedule 2001-03-04 Completed Unive rsity of 00:00:00 [facility] Hep B, Adol or Pedi 2001-03-04 Completed Unive rsity of Dosage 00:00:00 [facility] Polio (IPV/OPV) 2001-03-04 Completed [facility] 00:00:00 [facility] DTAP 2001-03-04 Completed [facility] 00:00:00 [facility] HIB 3 Dose Schedule 2001-03-04 Completed Unive rsity of 00:00:00 [facility] Hep B, Adol or Pedi 2001-03-04 Completed Unive rsity of Dosage 00:00:00 [facility] Polio (IPV/OPV) 2001-03-04 Completed [facility] 00:00:00 [facility] DTAP 2001-03-04 Completed [facility] of 00:00:00 [facility] HIB 3 Dose Schedule 2001-03-04 Completed [facility]ive rsity of 00:00:00 [facility] Hep B, Adol or Pedi 2001-03-04 Completed Unive rsity of Dosage 00:00:00 [facility] Polio (IPV/OPV) 2001-03-04 Completed [facility] 00:00:00 [facility] DTAP 2001-03-04 Completed [facility] 00:00:00 [facility] HIB 3 Dose Schedule 2001-03-04 Completed Unive rsity of 00:00:00 [facility] Hep B, Adol or Pedi 2001-03-04 Completed Unive rsity of Dosage 00:00:00 [facility] Polio (IPV/OPV) 2001-03-04 Completed [facility] 00:00:00 [facility] DTAP 2001-03-04 Completed [facility] 00:00:00 [facility] HIB 3 Dose Schedule 2001-03-04 Completed [facility]ive rsity of 00:00:00 [facility] Hep B, Adol or Pedi 2001-03-04 Completed [facility]ive rsity of Dosage 00:00:00 [facility] Polio (IPV/OPV) 2001-03-04 Completed [facility] 00:00:00 [facility] DTAP 2001-03-04 Completed [facility] 00:00:00 [facility] HIB 3 Dose Schedule 2001-03-04 Completed [facility]ive rsity of 00:00:00 [facility] Hep B, Adol or Pedi 2001-03-04 Completed [facility]ive rsity of Dosage 00:00:00 [facility] Polio (IPV/OPV) 2001-03-04 Completed [facility] 00:00:00 [facility] DTAP 2001-03-04 Completed [facility] 00:00:00 [facility] HIB 3 Dose Schedule 2001-03-04 Completed [facility]ive rsity of 00:00:00 [facility] Hep B, Adol or Pedi 2001-03-04 Completed [facility]ive rsity of Dosage 00:00:00 [facility] Polio (IPV/OPV) 2001-03-04 Completed [facility] 00:00:00 [facility] DTAP 2001-03-04 Completed [facility] 00:00:00 [facility] HIB 3 Dose Schedule 2001-03-04 Completed [facility] rs[facility] 00:00:00 [facility] Hep B, Adol or Pedi 2001-03-04 Completed [facility]ive rsity of Dosage 00:00:00 [facility] Polio (IPV/OPV) 2001-03-04 Completed [facility] 00:00:00 [facility] DTAP 2001-03-04 Completed [facility] 00:00:00 [facility] HIB 3 Dose Schedule 2001-03-04 Completed [facility]ive rsity of 00:00:00 [facility] Hep B, Adol or Pedi 2001-03-04 Completed [facility]ive rsity of Dosage 00:00:00 [facility] Polio (IPV/OPV) 2001-03-04 Completed [facility] 00:00:00 [facility] DTAP 2001-03-04 Completed [facility] 00:00:00 [facility] HIB 3 Dose Schedule 2001-03-04 Completed [facility]ive rsity of 00:00:00 [facility] Hep B, Adol or Pedi 2001-03-04 Completed [facility]ive rsity of Dosage 00:00:00 [facility] Polio (IPV/OPV) 2001-03-04 Completed [facility] 00:00:00 [facility] DTAP 2001-03-04 Completed [facility] 00:00:00 [facility] HIB 3 Dose Schedule 2001-03-04 Completed [facility]ive rsity of 00:00:00 [facility] Hep B, Adol or Pedi 2001-03-04 Completed [facility]ive rsity of Dosage 00:00:00 [facility] Polio (IPV/OPV) 2001-03-04 Completed [facility] 00:00:00 [facility] DTAP 2001-03-04 Completed [facility] 00:00:00 [facility] HIB 3 Dose Schedule 2001-03-04 Completed [facility]ive rsity of 00:00:00 [facility] Hep B, Adol or Pedi 2001-03-04 Completed [facility]ive rsity of Dosage 00:00:00 [facility] Polio (IPV/OPV) 2001-03-04 Completed [facility] 00:00:00 [facility] DTAP 2001-03-04 Completed [facility] 00:00:00 [facility] HIB 3 Dose Schedule 2001-03-04 Completed [facility]ive rsity of 00:00:00 [facility] Hep B, Adol or Pedi 2001-03-04 Completed [facility]ive rsity of Dosage 00:00:00 [facility] Polio (IPV/OPV) 2001-03-04 Completed [facility] 00:00:00 [facility] DTAP 2001-03-04 Completed [facility] 00:00:00 [facility] HIB 3 Dose Schedule 2001-03-04 Completed [facility]ive rsity of 00:00:00 [facility] Hep B, Adol or Pedi 2001-03-04 Completed [facility]ive rsity of Dosage 00:00:00 [facility] Polio (IPV/OPV) 2001-03-04 Completed [facility] 00:00:00 [facility] DTAP 2001-03-04 Completed [facility] 00:00:00 [facility] HIB 3 Dose Schedule 2001-03-04 Completed [facility] rsity of 00:00:00 [facility] Hep B, Adol or Pedi 2001-03-04 Completed [facility]ive rsity of Dosage 00:00:00 [facility] Polio (IPV/OPV) 2001-03-04 Completed [facility] 00:00:00 [facility] DTAP 2001-03-04 Completed [facility] 00:00:00 [facility] HIB 3 Dose Schedule 2001-03-04 Completed [facility] rsity of 00:00:00 [facility] Hep B, Adol or Pedi 2001-03-04 Completed [facility]ive rsity of Dosage 00:00:00 [facility] Polio (IPV/OPV) 2001-03-04 Completed [facility] 00:00:00 [facility] DTAP 2001-03-04 Completed [facility] 00:00:00 [facility] HIB 3 Dose Schedule 2001-03-04 Completed [facility] rsity of 00:00:00 [facility] Hep B, Adol or Pedi 2001-03-04 Completed [facility]ive rsity of Dosage 00:00:00 [facility] Polio (IPV/OPV) 2001-03-04 Completed [facility] 00:00:00 [facility] DTAP 2001-03-04 Completed [facility] 00:00:00 [facility] HIB 3 Dose Schedule 2001-03-04 Completed [facility] rs[facility] of 00:00:00 [facility] Hep B, Adol or Pedi 2001-03-04 Completed [facility] rs[facility] of Dosage 00:00:00 [facility] Polio (IPV/OPV) 2001-03-04 Completed [facility] 00:00:00 [facility] DTAP 2001-03-04 Completed [facility] 00:00:00 [facility] HIB 3 Dose Schedule 2001-03-04 Completed [facility] rsity of 00:00:00 [facility] Hep B, Adol or Pedi 2001-03-04 Completed [facility] rs[facility] of Dosage 00:00:00 [facility] Polio (IPV/OPV) 2001-03-04 Completed [facility] 00:00:00 [facility] DTAP 2001-03-04 Completed [facility] 00:00:00 [facility] HIB 3 Dose Schedule 2001-03-04 Completed [facility] 00:00:00 [facility] Hep B, Adol or Pedi 2001-03-04 Completed [facility] rs[facility] of Dosage 00:00:00 [facility] Polio (IPV/OPV) 2001-03-04 Completed [facility] 00:00:00 [facility] DTAP 2000-03-05 Completed [facility] 00:00:00 [facility] HIB 3 Dose Schedule 2000-03-05 Completed [facility] rs[facility] of 00:00:00 [facility] Hep B, Adol or Pedi 2000-03-05 Completed [facility] rsity of Dosage 00:00:00 [facility] Polio (IPV/OPV) 2000-03-05 Completed [facility] 00:00:00 [facility] DTAP 2000-03-05 Completed [facility] 00:00:00 [facility] HIB 3 Dose Schedule 2000-03-05 Completed [facility] rs[facility] of 00:00:00 [facility] Hep B, Adol or Pedi 2000-03-05 Completed [facility] rs[facility] of Dosage 00:00:00 [facility] Polio (IPV/OPV) 2000-03-05 Completed [facility] 00:00:00 [facility] DTAP 2000-03-05 Completed [facility] 00:00:00 [facility] HIB 3 Dose Schedule 2000-03-05 Completed [facility] of 00:00:00 [facility] Hep B, Adol or Pedi 2000-03-05 Completed [facility] of Dosage 00:00:00 [facility] Polio (IPV/OPV) 2000-03-05 Completed [facility] 00:00:00 [facility] DTAP 2000-03-05 Completed [facility] 00:00:00 [facility] HIB 3 Dose Schedule 2000-03-05 Completed [facility] of 00:00:00 [facility] Hep B, Adol or Pedi 2000-03-05 Completed [facility] of Dosage 00:00:00 [facility] Polio (IPV/OPV) 2000-03-05 Completed [facility] 00:00:00 [facility] DTAP 2000-03-05 Completed [facility] 00:00:00 [facility] HIB 3 Dose Schedule 2000-03-05 Completed [facility] of 00:00:00 [facility] Hep B, Adol or Pedi 2000-03-05 Completed [facility] of Dosage 00:00:00 [facility] Polio (IPV/OPV) 2000-03-05 Completed [facility] 00:00:00 [facility] DTAP 2000-03-05 Completed [facility] 00:00:00 [facility] HIB 3 Dose Schedule 2000-03-05 Completed [facility] 00:00:00 [facility] Hep B, Adol or Pedi 2000-03-05 Completed [facility] of Dosage 00:00:00 [facility] Polio (IPV/OPV) 2000-03-05 Completed [facility] 00:00:00 [facility] DTAP 2000-03-05 Completed [facility] 00:00:00 [facility] HIB 3 Dose Schedule 2000-03-05 Completed [facility] 00:00:00 [facility] Hep B, Adol or Pedi 2000-03-05 Completed [facility] of Dosage 00:00:00 [facility] Polio (IPV/OPV) 2000-03-05 Completed [facility] 00:00:00 [facility] DTAP 2000-03-05 Completed [facility] 00:00:00 [facility] HIB 3 Dose Schedule 2000-03-05 Completed [facility] 00:00:00 [facility] Hep B, Adol or Pedi 2000-03-05 Completed [facility] of Dosage 00:00:00 [facility] Polio (IPV/OPV) 2000-03-05 Completed [facility] 00:00:00 [facility] DTAP 2000-03-05 Completed [facility] 00:00:00 [facility] HIB 3 Dose Schedule 2000-03-05 Completed [facility] of 00:00:00 [facility] Hep B, Adol or Pedi 2000-03-05 Completed [facility] of Dosage 00:00:00 [facility] Polio (IPV/OPV) 2000-03-05 Completed [facility] 00:00:00 [facility] DTAP 2000-03-05 Completed [facility] 00:00:00 [facility] HIB 3 Dose Schedule 2000-03-05 Completed [facility] 00:00:00 [facility] Hep B, Adol or Pedi 2000-03-05 Completed [facility] of Dosage 00:00:00 [facility] Polio (IPV/OPV) 2000-03-05 Completed [facility] 00:00:00 [facility] DTAP 2000-03-05 Completed [facility] 00:00:00 [facility] HIB 3 Dose Schedule 2000-03-05 Completed [facility] of 00:00:00 [facility] Hep B, Adol or Pedi 2000-03-05 Completed [facility] of Dosage 00:00:00 [facility] Polio (IPV/OPV) 2000-03-05 Completed [facility] 00:00:00 [facility] DTAP 2000-03-05 Completed [facility] 00:00:00 [facility] HIB 3 Dose Schedule 2000-03-05 Completed [facility] of 00:00:00 [facility] Hep B, Adol or Pedi 2000-03-05 Completed [facility] of Dosage 00:00:00 [facility] Polio (IPV/OPV) 2000-03-05 Completed [facility] 00:00:00 [facility] DTAP 2000-03-05 Completed [facility] 00:00:00 [facility] HIB 3 Dose Schedule 2000-03-05 Completed [facility] 00:00:00 [facility] Hep B, Adol or Pedi 2000-03-05 Completed [facility] of Dosage 00:00:00 [facility] Polio (IPV/OPV) 2000-03-05 Completed [facility] 00:00:00 [facility] DTAP 2000-03-05 Completed [facility] 00:00:00 [facility] HIB 3 Dose Schedule 2000-03-05 Completed [facility] 00:00:00 [facility] Hep B, Adol or Pedi 2000-03-05 Completed [facility] of Dosage 00:00:00 [facility] Polio (IPV/OPV) 2000-03-05 Completed [facility] 00:00:00 [facility] DTAP 2000-03-05 Completed [facility] 00:00:00 [facility] HIB 3 Dose Schedule 2000-03-05 Completed [facility] 00:00:00 [facility] Hep B, Adol or Pedi 2000-03-05 Completed [facility] of Dosage 00:00:00 [facility] Polio (IPV/OPV) 2000-03-05 Completed [facility] 00:00:00 [facility] DTAP 2000-03-05 Completed [facility] 00:00:00 [facility] HIB 3 Dose Schedule 2000-03-05 Completed [facility] 00:00:00 [facility] Hep B, Adol or Pedi 2000-03-05 Completed [facility] of Dosage 00:00:00 [facility] Polio (IPV/OPV) 2000-03-05 Completed [facility] 00:00:00 [facility] DTAP 2000-03-05 Completed [facility] 00:00:00 [facility] HIB 3 Dose Schedule 2000-03-05 Completed [facility] 00:00:00 [facility] Hep B, Adol or Pedi 2000-03-05 Completed [facility] of Dosage 00:00:00 [facility] Polio (IPV/OPV) 2000-03-05 Completed [facility] 00:00:00 [facility] DTAP 2000-03-05 Completed [facility] 00:00:00 [facility] HIB 3 Dose Schedule 2000-03-05 Completed [facility] 00:00:00 [facility] Hep B, Adol or Pedi 2000-03-05 Completed [facility] of Dosage 00:00:00 [facility] Polio (IPV/OPV) 2000-03-05 Completed [facility] 00:00:00 [facility] DTAP 2000-03-05 Completed [facility] 00:00:00 [facility] HIB 3 Dose Schedule 2000-03-05 Completed [facility] 00:00:00 [facility] Hep B, Adol or Pedi 2000-03-05 Completed [facility] of Dosage 00:00:00 [facility] Polio (IPV/OPV) 2000-03-05 Completed [facility] 00:00:00 [facility] DTAP 2000-03-05 Completed [facility] 00:00:00 [facility] HIB 3 Dose Schedule 2000-03-05 Completed [facility] 00:00:00 [facility] Hep B, Adol or Pedi 2000-03-05 Completed [facility] of Dosage 00:00:00 [facility] Polio (IPV/OPV) 2000-03-05 Completed [facility] 00:00:00 [facility] DTAP 2000-03-05 Completed [facility] 00:00:00 [facility] HIB 3 Dose Schedule 2000-03-05 Completed [facility] 00:00:00 [facility] Hep B, Adol or Pedi 2000-03-05 Completed [facility] Dosage 00:00:00 [facility] Polio (IPV/OPV) 2000-03-05 Completed [facility] 00:00:00 [facility] DTAP 1999 Completed [facility] 00:[facility]00 [facility] [facility] 3 Dose Schedule 1999 Completed Unive rsity of 00:00:00 [facility] Hep B, Adol or Pedi 1999 Completed Unive rsity of Dosage 00:00:00 [facility] Polio (IPV/OPV) 1999 Completed Universit y of 00:00:00 [facility] DTAP 1999 Completed University of 00:00:00 [facility] HIB 3 Dose Schedule 1999 Completed Unive rsity of 00:00:00 [facility] Hep B, Adol or Pedi 1999 Completed Unive rsity of Dosage 00:00:00 [facility] Polio (IPV/OPV) 1999 Completed Universit y of 00:00:00 [facility] DTAP 1999 Completed University of 00:00:00 [facility] HIB 3 Dose Schedule 1999 Completed Unive rsity of 00:00:00 [facility] Hep B, Adol or Pedi 1999 Completed Unive rsity of Dosage 00:00:00 [facility] Polio (IPV/OPV) 1999 Completed Universit y of 00:00:00 [facility] DTAP 1999 Completed University of 00:00:00 [facility] HIB 3 Dose Schedule 1999 Completed Unive rsity of 00:00:00 [facility] Hep B, Adol or Pedi 1999 Completed Unive rsity of Dosage 00:00:00 [facility] Polio (IPV/OPV) 1999 Completed Universit y of 00:00:00 [facility] DTAP 1999 Completed University of 00:00:00 [facility] HIB 3 Dose Schedule 1999 Completed Unive rsity of 00:00:00 [facility] Hep B, Adol or Pedi 1999 Completed Unive rsity of Dosage 00:00:00 [facility] Polio (IPV/OPV) 1999 Completed Universit y of 00:00:00 [facility] DTAP 1999 Completed University of 00:00:00 [facility] HIB 3 Dose Schedule 1999 Completed Unive rsity of 00:00:00 [facility] Hep B, Adol or Pedi 1999 Completed Unive rsity of Dosage 00:00:00 [facility] Polio (IPV/OPV) 1999 Completed Universit y of 00:00:00 [facility] DTAP 1999 Completed University of 00:00:00 [facility] HIB 3 Dose Schedule 1999 Completed Unive rsity of 00:00:00 [facility] Hep B, Adol or Pedi 1999 Completed Unive rsity of Dosage 00:00:00 [facility] Polio (IPV/OPV) 1999 Completed Universit y of 00:00:00 [facility] DTAP 1999 Completed University of 00:00:00 [facility] HIB 3 Dose Schedule 1999 Completed Unive rsity of 00:00:00 [facility] Hep B, Adol or Pedi 1999 Completed Unive rsity of Dosage 00:00:00 [facility] Polio (IPV/OPV) 1999 Completed Universit y of 00:00:00 [facility] DTAP 1999 Completed University of 00:00:00 [facility] HIB 3 Dose Schedule 1999 Completed Unive rsity of 00:00:00 [facility] Hep B, Adol or Pedi 1999 Completed Unive rsity of Dosage 00:00:00 [facility] Polio (IPV/OPV) 1999 Completed Universit y of 00:00:00 [facility] DTAP 1999 Completed University of 00:00:00 [facility] HIB 3 Dose Schedule 1999 Completed Unive rsity of 00:00:00 [facility] Hep B, Adol or Pedi 1999 Completed Unive rsity of Dosage 00:00:00 [facility] Polio (IPV/OPV) 1999 Completed Universit y of 00:00:00 [facility] DTAP 1999 Completed University of 00:00:00 [facility] HIB 3 Dose Schedule 1999 Completed Unive rsity of 00:00:00 [facility] Hep B, Adol or Pedi 1999 Completed Unive rsity of Dosage 00:00:00 [facility] Polio (IPV/OPV) 1999 Completed Universit y of 00:00:00 [facility] DTAP 1999 Completed University of 00:00:00 [facility] HIB 3 Dose Schedule 1999 Completed Unive rsity of 00:00:00 [facility] Hep B, Adol or Pedi 1999 Completed Unive rsity of Dosage 00:00:00 [facility] Polio (IPV/OPV) 1999 Completed Universit y of 00:00:00 [facility] DTAP 1999 Completed University of 00:00:00 [facility] HIB 3 Dose Schedule 1999 Completed Unive rsity of 00:00:00 [facility] Hep B, Adol or Pedi 1999 Completed Unive rsity of Dosage 00:00:00 [facility] Polio (IPV/OPV) 1999 Completed Universit y of 00:00:00 [facility] DTAP 1999 Completed University of 00:00:00 [facility] HIB 3 Dose Schedule 1999 Completed Unive rsity of 00:00:00 [facility] Hep B, Adol or Pedi 1999 Completed Unive rsity of Dosage 00:00:00 [facility] Polio (IPV/OPV) 1999 Completed Universit y of 00:00:00 [facility] DTAP 1999 Completed University of 00:00:00 [facility] HIB 3 Dose Schedule 1999 Completed Unive rsity of 00:00:00 [facility] Hep B, Adol or Pedi 1999 Completed Unive rsity of Dosage 00:00:00 [facility] Polio (IPV/OPV) 1999 Completed Universit y of 00:00:00 [facility] DTAP 1999 Completed University of 00:00:00 [facility] HIB 3 Dose Schedule 1999 Completed Unive rsity of 00:00:00 [facility] Hep B, Adol or Pedi 1999 Completed Unive rsity of Dosage 00:00:00 [facility] Polio (IPV/OPV) 1999 Completed Universit y of 00:00:00 [facility] DTAP 1999 Completed University of 00:00:00 [facility] HIB 3 Dose Schedule 1999 Completed Unive rsity of 00:00:00 [facility] Hep B, Adol or Pedi 1999 Completed Unive rsity of Dosage 00:00:00 [facility] Polio (IPV/OPV) 1999 Completed Universit y of 00:00:00 [facility] DTAP 1999 Completed University of 00:00:00 [facility] HIB 3 Dose Schedule 1999 Completed Unive rsity of 00:00:00 [facility] Hep B, Adol or Pedi 1999 Completed Unive rsity of Dosage 00:00:00 [facility] Polio (IPV/OPV) 1999 Completed Universit y of 00:00:00 [facility] DTAP 1999 Completed University of 00:00:00 [facility] HIB 3 Dose Schedule 1999 Completed Unive rsity of 00:00:00 [facility] Hep B, Adol or Pedi 1999 Completed Unive rsity of Dosage 00:00:00 [facility] Polio (IPV/OPV) 1999 Completed Universit y of 00:00:00 [facility] DTAP 1999 Completed University of 00:00:00 [facility] HIB 3 Dose Schedule 1999 Completed Unive rsity of 00:00:00 [facility] Hep B, Adol or Pedi 1999 Completed Unive rsity of Dosage 00:00:00 [facility] Polio (IPV/OPV) 1999 Completed Universit y of 00:00:00 [facility] DTAP 1999 Completed University of 00:00:00 [facility] HIB 3 Dose Schedule 1999 Completed Unive rsity of 00:00:00 [facility] Hep B, Adol or Pedi 1999 Completed Unive rsity of Dosage 00:00:00 [facility] Polio (IPV/OPV) 1999 Completed Universit y of 00:00:00 [facility] Vital Signs Vital Name Observation Time Observation Value Comments Source Systolic blood 2021-09-13 07:00:00 121 mm[Hg] Univer sity of pressure [facility] Diastolic blood 2021-09-13 07:00:00 84 mm[Hg] Unive rsity of pressure [facility] Heart rate 2021-09-13 07:00:00 98 /min [facility] ty [facility] Respiratory rate 2021-09-13 07:00:00 20 /min Univ ersity of [facility] Oxygen saturation in 2021-09-13 07:00:00 98 /min University of Arterial blood by [place] [employer] [facility] Pulse oximetry Branch Body temperature 2021-09-13 05:34:00 37.61 Radha Univ [facility] Body height 2021-09-13 05:34:00 162.6 cm [facility] Body weight 2021-09-13 05:34:00 111.131 kg [facility] BMI 2021-09-13 05:34:00 42.05 kg/m2 [facility] Systolic blood 2020-12-31 20:48:00 127 mm[Hg] Univer sity of pressure [facility] Diastolic blood 2020-12-31 20:48:00 96 mm[Hg] Unive rsity of pressure [facility] Heart rate 2020-12-31 20:48:00 83 /min [facility] Body temperature 2020-12-31 20:48:00 36.83 Radha [facility] Respiratory rate 2020-12-31 20:48:00 18 /min Univ [facility] Body weight 2020-12-31 20:48:00 110.678 kg [facility] BMI 2020-12-31 20:48:00 41.88 kg/m2 [facility] Oxygen saturation in 2020-12-31 20:48:00 100 /min University of Arterial blood by [employer] [facility] Systolic blood 2020-11-07 14:46:00 126 mm[Hg] Univer sity of pressure [facility] Diastolic blood 2020-11-07 14:46:00 76 mm[Hg] Unive rsity of pressure [facility] Heart rate 2020-11-07 14:46:00 92 /min [facility] Body temperature 2020-11-07 14:46:00 37 Radha [facility] Respiratory rate 2020-11-07 14:46:00 24 /min Univ [facility] Body height 2020-11-07 14:46:00 162.6 cm [facility] Body weight 2020-11-07 14:46:00 113.581 kg [facility] BMI 2020-11-07 14:46:00 42.98 kg/m2 [facility] Systolic blood 2020-10-17 18:10:00 119 mm[Hg] Univer sity of pressure [facility] Diastolic blood 2020-10-17 18:10:00 72 mm[Hg] Unive rsity of pressure [facility] Heart rate 2020-10-17 18:10:00 99 /min [facility] Body temperature 2020-10-17 18:10:00 36.89 Radha [facility] Respiratory rate 2020-10-17 18:10:00 16 /min [facility] Body height 2020-10-17 18:10:00 162.6 [...] 2020-08-09 06:00:00 18 /min Univ [facility] Oxygen saturation in 2020-08-09 06:00:00 92 /min University of Arterial blood by [facility] Pulse oxim[facility] Body temperature 2020-08-09 05:00:00 37.44 Radha Univ ersity of [facility] Body height 2020-08-09 05:00:00 162.6 cm Universi ty of [facility] Body weight 2020-08-09 05:00:00 114.306 kg Universi ty of [facility] BMI 2020-08-09 05:00:00 43.26 kg/m2 Universi ty of [facility] Systolic blood 2020-01-08 07:00:00 137 mm[Hg] Univer sity of pressure [facility] Diastolic blood 2020-01-08 07:00:00 82 mm[Hg] Unive rsity of pressure [facility] Heart rate 2020-01-08 07:00:00 80 /min Universi ty of [facility] Body temperature 2020-01-08 07:00:00 36.89 Radha Univ [facility] of [facility] Respiratory rate 2020-01-08 07:00:00 11 /min Univ ersity of [facility] Oxygen saturation in 2020-01-08 07:00:00 95 /min University of Arterial blood by [facility] Pulse oxim[facility] Branch Body weight 2020-01-08 05:39:00 108.863 kg Universi ty of [facility] Systolic blood 2020-01-08 07:00:00 137 mm[Hg] Univer sity of pressure [facility] Diastolic blood 2020-01-08 07:00:00 82 mm[Hg] Unive rsity of pressure [facility] Heart rate 2020-01-08 07:00:00 80 /min Universi ty of [facility] Body temperature 2020-01-08 07:00:00 36.89 Radha Univ ersity of [facility] Respiratory rate 2020-01-08 07:00:00 11 /min Univ ersity of [facility] Oxygen saturation in 2020-01-08 07:00:00 95 /min University of Arterial blood by [facility] Pulse oxim[facility] Branch Body weight 2020-01-08 05:39:00 108.863 kg Universi ty of [facility] Procedures Procedure Date / Time Performed Performing Clinician Formerly [facility] e CONSENT/REFUSAL FOR 2021-09-13 05:29:08 Doctor Unassigned, No Un [facility] DIAGNOSIS AND Name Medical Branch TREATMENT NOTICE OF PRIVACY 2021-09-13 05:28:35 Doctor Unassigned, No [facility] POCT TEST 2020-12-31 21:04:00 Perry Herndon [facility] URINALYSIS 2020-12-31 20:58:00 Perry Herndon [facility] CONSENT/REFUSAL FOR 2020-12-31 20:17:00 Doctor Unassigned, No Un [facility] [place] DIAGNOSIS AND Name Medical [facility] TREATMENT POCT TEST 2020-10-17 19:59:00 Felipa Briseno [facility] GARDASIL 9 (HPV 9V) 2020-10-17 19:16:48 Felipa Briseno [facility] VACCINE [facility] CONSENT/REFUSAL FOR 2020-10-17 17:25:15 Doctor Unassigned, No [facility] [place] [facility] AND Name [facility] [place] TREATMENT ASSIGNMENT OF BENEFITS 2020-10-17 17:24:54 Doctor Unassigned, No [facility] BASIC METABOLIC PANEL 2020-08-09 05:20:00 Morena Benton [facility] (NA, K, CL, CO2, Medical Branch GLUCOSE, BUN, CREATININE, CA) CBC WITH DIFF 2020-08-09 05:20:[address] [facility] POCT TEST 2020-08-09 05:05:00 Morena Benton [facility] URINALYSIS 2020-08-09 05:03:[address] [facility] NOTICE OF PRIVACY 2020-08-09 04:47:00 Doctor Unassigned, No [facility] [place] CONSENT/REFUSAL FOR 2020-08-09 04:46:34 Doctor Unassigned, No [facility] [place] DI[facility] AND Name [facility] [place] TREATMENT XR CHEST 1 VW 2020-01-08 06:19:33 El Hussein [facility] LIPASE 2020-01-08 06:14:00 El Hussein [facility] TROPONIN I 2020-01-08 06:14:00 El Hussein [facility] HEPATIC FUNCTION PANEL 2020-01-08 06:14:00 El Hussein [facility] ([id number]) [facility] (ALB,T.PRO,BILI T,BU/BC,ALT,AST,ALK PHOS) BASIC METABOLIC PANEL 2020-01-08 06:14:00 El Hussein [facility] (NA, K, CL, CO2, Medical Branch GLUCOSE, BUN, CREATININE, CA) CBC WITH DIFF 2020-01-08 06:14:00 El Hussein [facility] URINALYSIS 2020-01-08 06:14:00 El Hussein [facility] POCT TEST 2020-01-08 06:13:00 El Hussein [facility] EKG-12 LEAD 2020-01-08 05:54:25 El Hussein [facility] Encounters Start End Encounter Admission Attending Care Care Encounter Source Date/Time Date/Time Type Type Clinicians Facility Department ID 2021-04-02 Emergency [facility] [id number] [facility] 2021-09-13 2021-09-13 Emergency X [facility] ERT [id number] Univers 00:42:00 02:04:00 PRAKASH [facility] 2021-09-13 2021-09-13 Emergency [facility] [id number] Univers 00:42:00 02:04:00 Prakash Sykes [place] [id number] i ty [facility] [id number] [phone] [address] 2021-03-02 2021-03-02 Telephone [facility] [id number] Univers 00:00:00 00:00:00 Felipa Messina [place]ER [place] [id number] [facility] [id number] [place] as MATERNAL [phone] Med ical & CHILD [address] [place] [address] 2021-02-19 2021-02-19 [facility] [id number] Univers 08:15:00 08:15:00 [facility]IPA [id number] [facility] 2021-02-19 2021-02-19 Outpatient R AKINSIPE, [facility] [id number] Univers 08:15:00 08:15:00 FELIPA ity o f [facility] 2021-02-06 2021-02-06 Outpatient R AKINSIPE, [facility] [id number] Univers 10:30:00 10:30:00 FELIPA [id number] ity o f [facility] 2021-02-06 2021-02-06 Outpatient R AKINSIPE, [facility] [id number] Univers 10:30:00 10:30:00 FELIPA ity o [facility] 2020-12-31 2020-12-31 Emergency [facility] [id number] Univers 16:05:00 18:56:00 Annabella Almanzar [place] [id number] ity [facility] 4.2.7.2.686 [place] [facility] [phone] [facility] 084 [place] 2020-12-26 2020-12-26 Outpatient [facility] [id number] Univers 16:00:00 16:00:00 [id number] ity of [facility] 2020-12-25 2020-12-25 Telephone [facility] [id number] Univers 00:00:00 00:00:00 Felipa Messina [place] [address] [facility] [id number] [place] MATERNAL [phone] [facility] ical & CHILD [address] [place] [address] 2020-12-24 2020-12-24 Nurse Lise Garcia [id number] Univers 00:00:00 00:00:00 Triage MARCIO 350.1.13.10 it y of [facility] 4.2.7.2.686 [place] [phone] [facility] 019 Branch 2020-11-07 2020-11-07 Office [facility] [id number] Univers 09:33:35 11:41:19 Visit Felipa Messina HANDER [place] 350.1.13.10 ity of [facility] 4.2.7.2.686 [place] MATERNAL [phone] [facility] & CHILD [address] [place] [address] 2020-11-07 2020-11-07 [facility] [id number] Univers 09:30:00 09:30:00 FELIPA [id number] ity o f [facility] 2020-11-07 2020-11-[address] [facility] [id number] Univers 09:30:00 09:30:00 FELIPA ity o f [facility] 2020-11-03 2020-11-03 Telephone [facility] [id number] Univers 00:00:00 00:00:00 Felipa C HANDER IN 350.1.13.10 ity of [facility] 4.2.7.2.686 [place] MATERNAL [phone] [facility] & CHILD [address] [place] [address] 2020-11-02 2020-11-02 Telephone [facility] [id number] Univers 00:00:00 00:00:00 Felipa C HANDER IN 350.1.13.10 ity of [facility] 4.2.7.2.686 [place] as MATERNAL [phone] [facility] CHILD [address] [place] [address] 2020-11-01 2020-11-01 Refill [facility] [id number] Univers 00:00:00 00:00:00 Felipa C HANDER IN 350.1.13.10 ity of [facility] 4.2.7.2.686 [place] MATERNAL [phone] [facility] & CHILD [address] [place] [address] 2020-11-01 2020-11-01 Letter ELDA Jonas [id number] Univers 00:00:00 00:00:00 (Out) Jake [facility] 350.1.13.10 i ty of [facility] [place].2.7.2.[id number] [address] 2020-10-27 2020-10-27 Outpatient R [facility] [id number] Univers 15:30:00 15:30:00 [id number] ity of [facility] 2020-10-27 2020-10-27 Outpatient R [facility] [id number] Univers 15:30:00 15:30:00 ity of [facility] 2020-10-19 2020-10-19 Telephone [facility] [id number] Univers 00:00:00 00:00:00 Felipa Messina HANDER IN 350.1.13.10 ity of [facility] 4.2.7.2.686 [place] MATERNAL [phone] [facility] & CHILD [address] [place] [address] 2020-10-17 2020-10-17 Office [facility] [id number] Univers 12:46:36 14:56:59 Visit Felipa Messina HANDER IN 350.1.13.10 ity of [facility] 4.2.7.2.686 [place] MATERNAL [phone] [facility] & [address] 2020-10-17 2020-10-[address] [facility] [id number] Univers 13:00:00 13:00:00 FELIPA mills o [facility] 2020-10-17 2020-10-17 Orders Doctor GREGG [id number] Univers 00:00:00 00:00:00 Only Unassigned, MARCIO 350.1.13.10 ity of [facility] 4.2.7.2.686 [place] as [phone] [facility] 009 Branch 2020-08-08 2020-08-09 Emergency [facility] 1.2.840.114 [id number] Univers 22:53:00 01:02:00 Morena Yost 350.1.13.10 ity of [place] 4.2.7.2.686 [place] [facility] [phone] [facility] 084 [place] 2020-08-08 2020-08-08 Emergency [facility] [id number] Univers 22:53:00 22:53:00 MORENA mills [facility] 2020-08-08 2020-08-08 Orders Doctor MARYSOL 1.2.840.114 [id number] Univers 00:00:00 00:00:00 Only Unassigned, MARCIO 350.1.13.10 ity of [place] [facility] 4.2.7.2.686 [facility] [phone] [facility] 009 Branch 2020-01-08 2020-01-08 Emergency El Hussein [facility] 1.2.840.114 [id number] 00:31:00 02:30:00 T [place] 350.1.13.10 [place] 4.2.7.2.686 [place] [id number] [facility] 2020-01-08 2020-01-08 Emergency lE Hussein [facility] 1.2.840.114 [id number] Univers 00:31:00 02:30:00 T [place] 350.1.13.10 i ty of [place] 4.2.7.2.686 [facility] s [place] [id number] [facility] 084 [place] 2020-01-08 2020-01-08 Emergency X EL HUSSEIN [facility] ERT [id number] Univers 00:31:00 00:31:00 ity [facility] Results Test Description Test Time Test Comments Results Result Comments Source URINALYSIS 2020-12-31 21:40:37 Test Item Value Reference Range Interpretation Comme nts APPEARANCE (test code = Hazy Clear A 4743504719) COLOR (test code = 5012650342) Yellow Yellow PH (test code = 3320237761) 4.8-8.0 SP GRAVITY (test code = 1.003-1.030 8352907276) GLU U QUAL (test code = Normal Normal 4779025498) BLOOD (test code = 1781802181) 2+ Negative A KETONES (test code = 0017354833) Negative Negative PROTEIN (test code = 2887-8) Negative Negative UROBILIN (test code = Normal Normal 2386218864) BILIRUBIN (test code = Negative Negative 6499633064) NITRITE (test code = 2989434537) Negative Negative LEUK MAXIMINO (test code = Negative Negative 5272894254) RBC/HPF (test code = 9350152043) See_Comment [Automated message] The system which ge nerated this result transmit jill reference range: 0 - 3 HP F. The reference range was not used to interpret th is result as normal/abnormal . WBC/HPF (test code = 4546430691) See_Comment [Automated message] The system which ge nerated this result transmit jill reference range: 0 - 5 HP F. The reference range was not used to interpret th is result as normal/abnormal . BACTERIA (test code = Few Negative A 6396592263) MUCOUS (test code = 5203735666) Slight Negative LPF A SQ EPITH (test code = HPF 6872030303) HYAL CAST (test code = See_Comment [Aut omated message] The 7692290233) system which ge nerated this result transmit jill reference range: <=2 LPF. The reference range was not u sed to interpret this result as normal/abnormal . Lab Interpretation (test code = Abnormal 93060-3) [facility] [id number] 21:04:00 Test Item Value Reference Range Interpretation Comments POCT PREG (test code = 1605) negative On board controls acceptable with present C Line (test code = 3574) POCT PREG LOT # (test code = 3575) [id number] POCT PREG TEST DATE (test 06/01/2022 code = 3576) Lab Interpretation (test code = Normal 28934-0) [facility] [id number] 20:00:00 Test Item Value Reference Range Interpretation Comments POCT PREG (test code = 1605) Negative On board controls acceptable with C Yes Line (test code = 3574) POCT PREG LOT # (test code = 3575) POCT PREG TEST DATE (test code = 3576) [facility] [id number] 20:00:00 Test Item Value Reference Range Interpretation Comments POCT PREG (test code = 1605) Negative On board controls acceptable with C Yes Line (test code = 3574) POCT PREG LOT # (test code = 3575) POCT PREG TEST DATE (test code = 3576) [facility]35 Test Item Value Reference Range Interpretation Comments APPEARANCE (test code = Clear Clear 0745685812) COLOR (test code = Yellow Yellow 3412224406) PH (test code = 4.8-8.0 9009636643) SP GRAVITY (test code = 1.003-1.030 2830237033) GLU U QUAL (test code = Normal Normal 1648445074) BLOOD (test code = 1+ Negative A 6831656647) KETONES (test code = Negative Negative 8620099860) PROTEIN (test code = Negative Negative 2887-8) UROBILIN (test code = Normal Normal 7009395133) BILIRUBIN (test code = Negative Negative 2136041237) NITRITE (test code = Negative Negative 8459054918) LEUK MAXIMINO (test code = Negative Negative 1571278859) RBC/HPF (test code = See_Comment [Autom ated message] 7462584397) The system [employer] generated this result transmitted ref erence range: 0 - 3 HP F. The reference range was not used to int erpret this result as normal/abnormal . WBC/HPF (test code = See_Comment [Autom ated message] 0532320437) The system [employer] generated this result transmitted ref erence range: 0 - 5 HP F. The reference range was not used to int erpret this result as normal/abnormal . BACTERIA (test code = Few Negative A 1266803021) MUCOUS (test code = Slight Negative LPF A 7242311422) SQ EPITH (test code = HPF 8926652437) Lab Interpretation (test Abnormal code = 20198-2) [facility] Metabolic Panel (NA, K, CL, CO2, GLUCOSE, BUN, CREATININE, CA)2020-08-09 05:38:20 Test Item Value Reference Range Interpretation Comments NA (test code = 137 mmol/L 135-145 8917113554) K (test code = 3.8 mmol/L 3.5-5.0 1878304635) CL (test code = 102 mmol/L 98-108 5448070854) CO2 TOTAL (test code = 26 mmol/L 23-31 7077478451) AGAP (test code = 2-16 7586335042) BUN (test code = 9 mg/dL 7-23 6953138460) GLUCOSE (test code = 83 mg/dL 70-110 0960247784) CREATININE (test code 0.67 mg/dL 0.50-1.04 = 7648150130) CALCIUM (test code = 9.4 mg/dL 8.6-10.6 9595623235) eGFR Calculation mL/min/1.73m2 (Non-) (test code = 6735154801) eGFR Calculation mL/min/1.73m2 () (test code = 0689887620) AVA (test code = AVA) Association of [...] or urine or abnormalities in imaging tests). [id number] Test Item Value Reference Range Interpretation Comments POCT PREG (test code = 1605) neg On board controls acceptable with yes C Line (test code = 3574) POCT PREG LOT # (test code = 3575) [id number] POCT PREG TEST DATE (test 04/01/2022 code = 3576) Lab Interpretation (test code = Normal 76224-5) [facility] [id number] 06:59:00 Test Item Value Reference Range Interpretation Comments TROPONIN I (test <0.012 See_Comment [Automated code = 5334386981) message] The system which generated this result [...] ? Lab Interpretation Normal (test code = 31460-0) [facility] (NA, K, CL, CO2, GLUCOSE, BUN, CREATININE, CA)2020-01-08 06:48:00 Test Item Value Reference Range Interpretation Comments NA (test code = 138 mmol/L 135-145 9085531309) K (test code = 4.0 mmol/L 3.5-5 8716347640) CL (test code = 106 mmol/L 98-108 1539592172) CO2 TOTAL (test code = 24 mmol/L 23-31 0491032094) AGAP (test code = 2-16 9255592252) BUN (test code = 10 mg/dL 7-23 6106942688) GLUCOSE (test code = 91 mg/dL 70-110 7126164465) CREATININE (test code 0.64 mg/dL 0.5-1.04 = 2870440500) CALCIUM (test code = 9.3 mg/dL 8.6-10.6 3536791873) eGFR Calculation mL/min/1.73m2 (Non-) (test code = 8502009893) eGFR Calculation mL/min/1.73m2 () (test code = 3254486200) AVA (test code = AVA) Association of [...] or urine or abnormalities in imaging tests). [facility] (ALB, T.PRO, BILI T, BU/BC, ALT, AST, ALK PHOS)2020-01-08 06:48:00 Test Item Value Reference Range Interpretation Comments TOTAL BILI (test code = 3440191609) 0.2 mg/dL 0.1-1.1 BILI UNCON (test code = 4960180202) 0.4 mg/dL 0.1-1.1 BILI CONJ (test code = 9044065450) 0.0 mg/dL 0-0.3 T PROTEIN (test code = 2078505934) 7.4 g/dL 6.3-8.2 ALBUMIN (test code = 9857583059) 4.6 g/dL 3.5-5 ALK PHOS (test code = 5152360465) 45 U/L 34-122 ALTv (test code = 1742-6) 22 U/L 5-35 AST(SGOT) (test code = 9047623377) 27 U/L 13-40 Lab Interpretation (test code = Normal 12147-2) [facility] [id number] 06:48:00 Test Item Value Reference Range Interpretation Comments LIPASE (test code = 6647379770) 78 U/L 0-220 Lab Interpretation (test code = Normal 88581-6) [facility] 06:41:00 Test Item Value Reference Range Interpretation Comments APPEARANCE (test code = Clear Clear 1694125537) COLOR (test code = Colorless Yellow A 3670309796) PH (test code = 4.8-8.0 8408635964) SP GRAVITY (test code = 1.003-1.030 7722263322) GLU U QUAL (test code = Normal Normal 9188948871) BLOOD (test code = 1+ Negative A 3677403949) KETONES (test code = Negative Negative 3545111276) PROTEIN (test code = Negative Negative 2887-8) UROBILIN (test code = Normal Normal 3448501672) BILIRUBIN (test code = Negative Negative 1352657938) NITRITE (test code = Negative Negative 1052730206) LEUK MAXIMINO (test code = Negative Negative 7692679489) RBC/HPF (test code = See_Comment [Autom ated message] 3828641891) The system [employer] generated this result transmit jill reference range : 0 - 3 HPF. The refe rence range was not u sed to interpret th is result as normal/abnormal . WBC/HPF (test code = See_Comment [Autom ated message] 2378791015) The system [employer] generated this result transmit jill reference range : 0 - 5 HPF. The refe rence range was not u sed to interpret th is result as normal/abnormal . BACTERIA (test code = Few Negative A 3032793477) SQ EPITH (test code = HPF 7293508143) Lab Interpretation (test Abnormal code = 94184-0) [facility] [id number] 06:31:00 Test Item Value Reference Range Interpretation [...] RDW-SD (test code = 39.7 fL 39-49.9 87322-0) RDW-CV (test code = 13.2 % 12-15.5 788-0) PLT (test code = See_Comment H [Automated 777-3) message] The sy stem which generated this result transmitted reference range : 166 - 358 10*3/ ?L. The reference r karishma was not used to interpret this result as normal/abnormal . MPV (test code = 10.2 fL 9.5-12.9 79452-7) NRBC/100 WBC (test See_Comment [Automat ed code = 7238617006) message] The system which generated this result transmitted reference range : 0.0 - 10.0 /100 WBCs. The refer ence range was not u sed to interpret th is result as normal/abnormal . NRBC x10^3 (test code <0.01 See_Comment [Auto mated = 8909761183) message] The s ystem which generated this result transmitted reference range : 10*3/?L. The reference range was not used to interpret this result as normal/abnormal . GRAN MAT (NEUT) % 48.6 % (test code = 770-8) IMM GRAN % (test code 0.60 % = 4921349996) LYMPH % (test code = 41.9 % 736-9) MONO % (test code = 6.3 % 5905-5) EOS % (test code = 2.2 % 713-8) BASO % (test code = 0.4 % 706-2) GRAN MAT x10^3(ANC) 5.09 10*3/uL 1.88-7.09 (test code = 9983598221) IMM GRAN x10^3 (test 0.06 10*3/uL 0-0.06 code = 6740395113) LYMPH x10^3 (test code 4.38 10*3/uL 1.32-3.29 H = 731-0) MONO x10^3 (test code 0.66 10*3/uL 0.33-0.92 = 742-7) EOS x10^3 (test code = 0.23 10*3/uL 0.03-0.39 711-2) BASO x10^3 (test code 0.04 10*3/uL 0.01-0.07 = 704-7) Lab Interpretation Abnormal (test code = 79956-5) [facility] [id number] 06:13:00 Test Item Value Reference Range Interpretation Comments POCT PREG (test code = 1605) negative On board controls acceptable with positive C Line (test code = 3574) POCT PREG LOT # (test code = 3575) [id number] POCT PREG TEST DATE (test code = 3576) Lab Interpretation (test code = Normal 91521-6) [facility]"
[2022-02-06] MEDS ORDERED: IBUPROFEN 400 MG TAB ONE (13:39)
[2022-02-06] MEDS ORDERED: IBUPROFEN 200 MG TAB PO ONE (13:39)
--- NOTE | 2022-02-06 14:03 | ER ---
Nurse's Notes [facility] Name: Gisele Arechiga Age: 22 yrs Sex: Female : 2000 Arrival Date: 02/06/2022 Time: 12:26 Bed Waiting Private MD: Diagnosis: Myalgia;Otalgia, right ear;Pain in throat;Muscle spasm Presentation: 02/06 13:04 Chief complaint: Patient states: Generalized body aches, sore throat, R ear pain. kb3 Coronavirus screen: Vaccine status: Patient reports being unvaccinated. Ebola Screen: Patient negative for fever greater than or equal to 101.5 degrees Fahrenheit, and additional compatible Ebola Virus Disease symptoms Patient denies exposure to infectious person. Patient denies travel to an Ebola-affected area in the 21 days before illness onset. Initial Sepsis Screen: Does the patient meet any 2 criteria? No. Patient's initial sepsis screen is negative. Does the patient have a suspected source of infection? No. Patient's initial sepsis screen is negative. Risk Assessment: Do you want to hurt yourself or someone else? Patient reports no desire to harm self or others. Onset of symptoms. 13:04 Method Of Arrival: Ambulatory kb3 13:04 Acuity: IRIS 4 kb3 Triage Assessment: 13:06 General: Appears in no apparent distress. Behavior is calm, cooperative. Pain: kb3 Complains of pain in neck. 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 - Social history:: Smoking status: Reported history of juuling and/or vaping. Screenin:00 Abuse screen: Denies threats or abuse. Denies injuries from another. Nutritional iw screening: No deficits noted. Tuberculosis screening: No symptoms or risk factors identified. Fall Risk None identified. Assessment: 14:00 General: Appears in no apparent distress. Behavior is calm, cooperative. General: iw Reports feeling ill for fatigue for. Neuro: Level of Consciousness is awake, alert, obeys commands, Oriented to person, place, time, situation. Cardiovascular: Capillary refill Patient's skin is warm and dry. Respiratory: Respiratory effort is even, unlabored. Derm: Skin is intact, is healthy with good turgor. Vital Signs: 13:06 BP 115 / 74; Pulse 90; Resp 20; Temp 98.8; Pulse Ox 100% ; Weight 110.22 kg; Height 5 kb3 ft. 6 in. (167.64 cm); Pain 10/10; 13:06 Body Mass Index 39.22 (110.22 kg, 167.64 cm) kb3 ED Course: 12:26 Patient arrived in ED. mr 12:53 Jose Munoz DO is Attending Physician. ms3 13:06 Triage completed. kb3 13:06 Arm band placed on right wrist. kb3 13:51 Linda Ellis, RN is Primary Nurse. iw 14:00 Patient has correct armband on for positive identification. iw 14:01 Jaime Mcgill DO is Referral Physician. ms3 14:16 No provider procedures requiring assistance completed. Patient did not have IV access iw during this emergency room visit. Administered Medications: 13:31 Drug: Ibuprofen 600 mg Route: PO; kb3 13:45 Follow up: Response: No adverse reaction iw Medication: 14:00 VIS not applicable for this client. iw Outcome: 14:02 Discharge ordered by . ms3 14:16 Discharged to home ambulatory, with family. iw 14:16 Condition: good 14:16 Discharge instructions given to patient, Instructed on discharge instructions, follow up and referral plans. Demonstrated understanding of instructions, follow-up care, medications, Prescriptions given X 1. 14:17 Patient left the ED. iw Signatures: Lisa Eduardo mr Linda Ellis, RN RN iw Jose Munoz DO DO ms3 Yary Umaña, RN RN kb3
--- NOTE | 2022-02-06 14:03 | EDPHYS ---
Physician Documentation [facility] Name: Gisele Arechiga Age: 22 yrs Sex: Female : 2000 Arrival Date: 02/06/2022 Time: 12:26 Bed Waiting Private MD: ED Physician Jose Munoz HPI: 02/06 13:13 This 22 yrs old Female presents to ER via Ambulatory with complaints of Flu ms3 Symptoms. 13:13 22-year-old female with past medical history of bipolar disorder, depression, diabetes, ms3 pilonidal cyst presents for body aches, sore throat, earache that she rates a 10/10 described as aching. Patient denies alleviating or inciting factors. Patient states she has taken NyQuil, Mucinex, Robitussin, Advil without relief. Patient denies inciting factors.. 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 - Social history:: Smoking status: Reported history of juuling and/or vaping. ROS: 13:13 Cardiovascular: Negative for chest pain, and palpitations. ms3 13:13 Abdomen/GI: Negative for abdominal pain, nausea, vomiting, diarrhea, and constipation, MS/Extremity: Negative for injury and deformity, Skin: Negative for injury, rash, and discoloration. 13:13 Constitutional: Positive for body aches, chills. 13:13 ENT: Positive for sore throat. 13:13 Neck: Positive for pain with movement. 13:13 Respiratory: Positive for cough. 13:13 All other systems are negative. Exam: 13:13 Constitutional: This is a well developed, well nourished patient who is awake, alert, ms3 and in no acute distress. Head/Face: Normocephalic, atraumatic. 13:13 Cardiovascular: Regular rate and rhythm with a normal S1 and S2. No gallops, murmurs, or rubs. Normal PMI, no JVD. No pulse deficits. Respiratory: Lungs have equal breath sounds bilaterally, clear to auscultation and percussion. No rales, rhonchi or wheezes noted. No increased work of breathing, no retractions or nasal flaring. Abdomen/GI: Soft, non-tender, with normal bowel sounds. No distension or tympany. No guarding or rebound. No evidence of tenderness throughout. Skin: Warm, dry with normal turgor. Normal color with no rashes, no lesions, and no evidence of cellulitis. Psych: Awake, alert, with orientation to person, place and time. Behavior, mood, and affect are within normal limits. 13:13 ENT: Nose: nasal drainage, that is minimal, and is seen coming from both nares, that is clear. Vital Signs: 13:06 BP 115 / 74; Pulse 90; Resp 20; Temp 98.8; Pulse Ox 100% ; Weight 110.22 kg; Height 5 kb3 ft. 6 in. (167.64 cm); Pain 10/10; 13:06 Body Mass Index 39.22 (110.22 kg, 167.64 cm) kb3 MDM: 13:09 Patient medically screened. ms3 13:13 Differential Diagnosis: Influenza Upper Respiratory Infection Viral Syndrome. ms3 14:02 Data reviewed: vital signs, nurses notes, lab test result(s), and as a result, I will ms3 discharge patient. Counseling: I had a detailed discussion with the patient and/or guardian regarding: the historical points, exam findings, and any diagnostic results supporting the discharge/admit diagnosis, lab results, the need for outpatient follow up, to return to the emergency department if symptoms worsen or persist or if there are any questions or concerns that arise at home. Special discussion: I discussed with the patient/guardian in detail that at this point there is no indication for admission to the hospital. It is understood, however, that if the symptoms persist or worsen the patient needs to return immediately for re-evaluation. 02/06 13:09 Order name: Flu; Complete Time: 14:01 ms3 02/06 13:09 Order name: Strep; Complete Time: 14: ms3 02/06 13:41 Order name: Throat Culture EDMS Administered Medications: 13:31 Drug: Ibuprofen 600 mg Route: PO; kb3 13:45 Follow up: Response: No adverse reaction iw Disposition Summary: 02/06/22 14:02 Discharge Ordered Location: Home ms3 Condition: Stable ms3 Diagnosis - Myalgia ms3 - Otalgia, right ear ms3 - Pain in throat ms3 - Muscle spasm ms3 Followup: ms3 - With: Jaime Mcgill DO - When: 2 - 3 days - Reason: Recheck today's complaints Discharge Instructions: - Discharge Summary Sheet iw - Musculoskeletal Pain ms3 - Sore Throat ms3 Forms: - Work release form iw - Medication Reconciliation Form ms3 - Thank You Letter ms3 - Antibiotic Education ms3 - Prescription Opioid Use ms3 Prescriptions: - Debrox 6.5 % Otic drops - instill 10 drop by OTIC route 2 times per day; 15 milliliter; Refills: 0, ms3 Product Selection Permitted - Cyclobenzaprine 5 mg Oral Tablet - take 1 tablet by ORAL route 3 times per day As needed; 15 tablet; Refills: 0, ms3 Product Selection Permitted Signatures: Dispatcher [employer] Jose Scherer DO DO ms3 Yary Umaña, RN RN kb3 Linda Ellis RN iw
[2022-02-06 14:26] VITALS: BP 115/74; TEMP 98.8; O2SAT 100
== END 2022-02-06 14:17 | disposition home or self-care (01) ==
LOC: ER 12:22
DX: M79.10 Myalgia, unspecified site (principal); H92.01 Otalgia, right ear; R07.0 Pain in throat; E11.9 Type 2 diabetes mellitus without complications; Z88.0 Allergy status to penicillin
CPT/HCPCS: 87070; 87081; 87804; 99283

== ENCOUNTER 2022-02-14 23:18 | Emergency (ER) | payer SELFPAY ==
--- OUTSIDE RECORDS SUMMARY | 2022-02-14 23:25 | XMS REPORT | Continuity of Care Document ---
:2000 Author Organization [facility] t Address [address] [place] [address] Care Team Providers Name Role Phone CHUY ULLOA Primary Care Physician Unavailable PRAKASH ALLAN Attending Clinician Unavailable Prakash Wells Attending Clinician [place] WHCNPFelipa Attending Clinician [phone] FELIPA BRISENO Attending Clinician Unavailable Danita BROUSSARD, Annabella Almanzar Attending Clinician Lise Garcia RN Attending Clinician Unavailable Jake Jonas MD Attending Clinician Doctor Unassigned, [place] Attending Clinician Unavailable Morena Benton DO Attending [...] nivers exam exam 5-18 ity of 00:00: [address] Obesity Obesity Disease Active Univers (BMI (BMI 5-18 ity of 30-39.9) 30-39.9) 00:00: [place] 00 [facility] Pilonidal Pilonidal Disease Active Uni vers cyst cyst 5-18 ity of 00:00: [place] 00 [facility] No known No known Disease Unive rs active active ity of problems problems [facility] Allergies, Adverse Reactions, Alerts Allergy Allergy Status [...] 9-16 ity of 00:00: [place] 00 Medical [place] Social History Social Habit Start Date Stop Date Quantity Comments Source History of tobacco Cigarette Smoker University of use [facility] Exposure to Not sure University of SARS-CoV-2 (event) [facility] Branch History [facility] o f Alcohol Frequency [facility] Branch History [facility] o f Alcohol Std Drinks [facility] History [facility] o f Alcohol Binge [facility] Alcohol intake 2020-12-31 2020-12-31 Current drinker Unive rsity of 00:00:00 00:00:00 of alcohol [facility] (finding) Branch Cigarettes smoked 2020-10-17 2020-10-17 Univers ity of current (pack per 00:00:00 00:00:00 [facility] ) - Reported Branch Tobacco use and 2020-10-17 2020-10-17 Former user Universi ty of exposure 00:00:00 00:00:00 [facility] Tobacco Comment 2020-10-17 2020-10-17 8-10 cigarettes a Un iversity of 00:00:00 00:00:00 day [facility] Alcohol Comment 2020-10-17 2020-10-17 socially Universit y of 00:00:00 00:00:00 [facility] Sex Assigned At [birth year] Universit y of 00:00:00 00:00:00 [facility] Smoking Status Start Date Stop Date Source Current every day smoker 2020-10-17 00:00:[address] [facility] Unknown if ever smoked [facility] Medications Ordered Filled Start Stop Current Ordering Indication Dosage Frequency Signature Comments Components Source Medication Medication Date Date Medication? Clinician (SIG) Name Name clindamycin 2021- No 450mg 450 mg, U timothy (CLEOCIN 4-14 04-14 Oral, ity of HCL) 08:00: 06:55 ONCE, 1 [place] capsule 450 00 :00 dose, On Medi walter mg [facility] 09/13/21 at 0300, SHALOM
Re ason for Anti-Infec tive: Documented Infection< br>Documen jill Infection Site: Skin / Soft Tissue
Duration of Therapy: Other (see Comments)< br>Restric jill use approved by: ED PROVIDER<b r>Indicati on for Clindamyci n use: pilonidal cyst allergic to PCN clindamycin 2021- No [id number] 450mg Take 3 Univers 150 mg -14 04-25 capsules ity of capsule 00:00: 04:59 by mouth 3 [place] as 00 :00 (three) Medical times [place] daily for 10 days. norgestimat Yes [id number] 1{tbl} Take 1 Univers e-ethinyl 6-08 tablet by ity o f estradioL 00:00: mouth [place] (ORTHO 00 daily. [facility],) 0.18/0.215/ 0.25 mg-35 mcg (28) tablet norgestimat Yes [id number] 1{tbl} Take 1 Univers e-ethinyl 6-08 tablet by ity o f estradioL 00:00: mouth [place] (ORTHO 00 daily. [facility],) 0.18/0.215/ 0.25 mg-35 mcg (28) tablet norgestimat Yes [id number] 1{tbl} Take 1 Univers e-ethinyl 6-08 tablet by ity o f estradioL 00:00: mouth [place] [facility] [address] 0.18/0.215/ 0.25 mg-35 mcg (28) tablet norgestimat 2021-0 Yes [id number] 1{tbl} Take 1 Univers e-ethinyl 6-08 tablet by ity o f estradioL 00:00: mouth [place] (ORTHO 00 daily. [place] [id number],) 0.18/0.215/ 0.25 mg-35 mcg (28) tablet norgestimat 2021-0 Yes [id number] 1{tbl} Take 1 Univers e-ethinyl 6-08 tablet by ity o f estradioL 00:00: mouth [place] (ORTHO 00 daily. [facility] [address],) 0.18/0.215/ 0.25 mg-35 mcg (28) tablet norgestimat 2021-0 Yes [id number] 1{tbl} Take 1 Univers e-ethinyl 6-08 tablet by ity o f estradioL 00:00: mouth [place] ([facility]THO 00 daily. [facility] [address] 0.18/0.215/ 0.25 mg-35 mcg (28) tablet norgestimat 2021-0 Yes [id number] 1{tbl} Take 1 Univers e-ethinyl 6-08 tablet by ity o f estradioL 00:00: mouth [place] (ORTHO 00 daily. [place] [address],) 0.18/0.215/ 0.25 mg-35 mcg (28) tablet medroxyPROG 2021-0 2021- No [id number] 10mg Take 1 Univers ESTERone 5-20 05-31 tablet by ity o f (PROVERA) 00:00: 04:59 mouth [place] 10 mg 00 :00 daily for Medical tablet 10 days. [place] medroxyPROG 2021-0 2021- No [id number] 10mg Take 1 Univers ESTERone 5-20 05-31 tablet by ity o f (PROVERA) 00:00: 04:59 mouth [place] 10 mg 00 :00 daily for Medical tablet 10 days. [place] medroxyPROG 2021-0 1- No [id number] 10mg Take 1 Univers ESTERone 5-20 05-31 tablet by ity o f (PROVERA) 00:00: 04:59 mouth [place] 10 mg 00 :00 daily for Medical tablet 10 days. [place] medroxyPROG 2020-0 2020- No [id number] 10mg Take 1 Univers ESTERone 5-20 05-31 [...] 18:21: mouth [place] 18 every Medical morning. [place] phentermine Yes 37.5mg Take 37.5 Univers 37.5 [...] 18:21: mouth [place] 18 every Medical morning. [place] phentermine Yes 37.5mg Take 37.5 Univers 37.5 mg 5-18 mg by ity of capsule 18:21: mouth [place] 18 every Medical morning. [place] phentermine Yes 37.5mg Take 37.5 Univers 37.5 mg 5-18 mg by ity of capsule 18:21: mouth [place] 18 every Medical morning. [place] phentermine Yes 37.5mg Take 37.5 Univers 37.5 mg 5-18 mg by ity of capsule 18:21: mouth [place] 18 every Medical morning. [place] phentermine Yes 37.5mg Take 37.5 Univers 37.5 mg 5-18 mg by ity of capsule 18:21: mouth [place] 18 every Medical morning. [place] phentermine Yes 37.5mg Take 37.5 Univers 37.5 mg 5-18 mg by ity of capsule 18:21: mouth [place] 18 every Medical morning. [place] phentermine Yes 37.5mg Take 37.5 Univers 37.5 mg 5-18 mg by ity of capsule 18:21: mouth [place] 18 every Medical morning. [place] phentermine Yes 37.5mg Take 37.5 Univers 37.5 mg 5-18 mg by ity of capsule 18:21: mouth [place] 18 every Medical morning. [place] phentermine Yes 37.5mg Take 37.5 Univers 37.5 mg 5-18 mg by ity of capsule 18:21: mouth [place] 18 every Medical morning. [place] phentermine Yes 37.5mg Take 37.5 Univers 37.5 mg 5-18 mg by ity of capsule 13:21: mouth [place] 18 every Medical morning. [place] phentermine Yes 37.5mg Take 37.5 Univers 37.5 mg 5-18 mg by ity of capsule 13:21: mouth [place] 18 every Medical morning. [place] ketorolac 2020- No 30mg 30 mg, Lc rs (TORADOL) 3-10 03-10 Slow IV ity of injection 05:45: 05:42 Push, [place] 30 mg 00 :00 ONCE, 1 Medical dose, [place] 08/08/20 at 2345, SHALOM
[facility] Restricted medication : MORENA BENTON [...] Name HPV9 2020-10-17 Completed University of 00:00:00 [facility] HPV9 2020-10-17 Completed University of 00:00:00 [facility] HPV9 2020-10-17 Completed University of 00:00:00 [facility] HPV9 2020-10-17 Completed University of 00:00:00 [facility] HPV9 2020-10-17 Completed University of 00:00:00 [facility] HPV9 2020-10-17 Completed University of 00:00:00 [facility] HPV9 2020-10-17 Completed University of 00:00:00 [facility] HPV9 2020-10-17 Completed University of 00:00:00 [facility] HPV9 2020-10-17 Completed University of 00:00:00 [facility] HPV9 2020-10-17 Completed University of 00:00:00 [facility] HPV9 2020-10-17 Completed University of 00:00:00 [facility] HPV9 2020-10-17 Completed University of 00:00:00 [place] [...] Branch HPV9 2020-10-17 Completed University of 00:00:00 [facility] Branch HPV 2018-09-15 Completed University of 00:00:00 [facility] Meningococcal 2018-09-15 Completed University of Vaccine [...] Meningococcal 2018-09-15 Completed University of Vaccine 00:00:00 [facility] HPV 2018-09-15 Completed University of 00:00:00 [facility] Meningococcal 2018-09-15 Completed University of Vaccine 00:00:00 [facility] HPV 2018-09-15 Completed University of 00:00:00 [facility] Meningococcal 2018-09-15 Completed University of Vaccine 00:00:00 [facility] HPV 2018-09-15 Completed University of 00:00:00 [facility] Meningococcal 2018-09-15 Completed University of Vaccine 00:00:00 [facility] HPV 2018-09-15 Completed University of 00:00:00 [facility] Meningococcal 2018-09-15 Completed University of Vaccine 00:00:00 [facility] HPV 2018-09-15 Completed University of 00:00:00 [facility] Meningococcal 2018-09-15 Completed University of Vaccine 00:00:00 [facility] HPV 2018-09-15 Completed University of 00:00:00 [facility] Meningococcal 2018-09-15 Completed University of Vaccine 00:00:00 [facility] HPV 2018-09-15 Completed University of 00:00:00 [facility] Meningococcal 2018-09-15 Completed University of Vaccine 00:00:00 [facility] HPV 2018-09-15 Completed University of 00:00:00 [facility] Meningococcal 2018-09-15 Completed University of Vaccine 00:00:00 [facility] HPV 2018-09-15 Completed University of 00:00:00 [facility] Meningococcal 2018-09-15 Completed University of Vaccine 00:00:00 [facility] HPV 2018-09-15 Completed University of 00:00:00 [facility] Meningococcal 2018-09-15 Completed University of Vaccine 00:00:00 [facility] HPV 2018-09-15 Completed University of 00:00:00 [facility] Meningococcal 2018-09-15 Completed University of Vaccine 00:00:00 [facility] HPV 2018-09-15 Completed University of 00:00:00 [facility] Meningococcal 2018-09-15 Completed University of Vaccine 00:00:00 [facility] HEPATITIS A 2012-01-21 Completed University of 00:00:00 [facility] Meningococcal 2012-01-21 Completed University of Vaccine 00:00:00 [facility] TDAP 2012-01-21 Completed University of 00:00:00 [facility] Varicella 2012-01-21 Completed University of (varivax)(chicken 00:00:00 [place] M edical pox) Branch HEPATITIS A 2012-01-21 Completed University of 00:00:00 [facility] Meningococcal 2012-01-21 Completed University of Vaccine 00:00:00 [facility] TDAP 2012-01-21 Completed University of 00:00:00 [facility] Varicella 2012-01-21 Completed University of (varivax)(chicken 00:00:00 [place] [facility] edical pox) Branch HEPATITIS A 2012-01-21 Completed University of 00:00:00 [facility] Meningococcal 2012-01-21 Completed University of Vaccine 00:00:00 [facility] TDAP 2012-01-21 Completed University of 00:00:00 [facility] Varicella 2012-01-21 Completed University of (varivax)(chicken 00:00:00 [place] M edical pox) Branch HEPATITIS A 2012-01-21 Completed University of 00:00:00 [facility] Meningococcal 2012-01-21 Completed University of Vaccine 00:00:00 [facility] TDAP 2012-01-21 Completed University of 00:00:00 [facility] Varicella 2012-01-21 Completed University of (varivax)(chicken 00:00:00 [place] M edical pox) Branch HEPATITIS A 2012-01-21 Completed University of 00:00:00 [facility] Meningococcal 2012-01-21 Completed University of Vaccine 00:00:00 [facility] TDAP 2012-01-21 Completed University of 00:00:00 [facility] Varicella 2012-01-21 Completed University of (varivax)(chicken 00:00:00 [place] M edical pox) Branch HEPATITIS A 2012-01-21 Completed University of 00:00:00 [facility] Meningococcal 2012-01-21 Completed University of Vaccine 00:00:00 [facility] TDAP 2012-01-21 Completed University of 00:00:00 [facility] Varicella 2012-01-21 Completed University of (varivax)(chicken 00:00:00 [place] M edical pox) Branch HEPATITIS A 2012-01-21 Completed University of 00:00:00 [facility] Meningococcal 2012-01-21 Completed University of Vaccine 00:00:00 [facility] TDAP 2012-01-21 Completed University of 00:00:00 [facility] Varicella 2012-01-21 Completed University of (varivax)(chicken 00:00:00 [place] [facility] edical pox) Branch HEPATITIS A 2012-01-21 Completed University of 00:00:00 [facility] Meningococcal 2012-01-21 Completed University of Vaccine 00:00:00 [facility] TDAP 2012-01-21 Completed University of 00:00:00 [facility] Varicella 2012-01-21 Completed University of (varivax)(chicken 00:00:00 [place] M edical pox) Branch HEPATITIS A 2012-01-21 Completed University of 00:00:00 [facility] Meningococcal 2012-01-21 Completed University of Vaccine 00:00:00 [facility] TDAP 2012-01-21 Completed University of 00:00:00 [facility] Varicella 2012-01-21 Completed University of (varivax)(chicken 00:00:00 [place] M edical pox) Branch HEPATITIS A 2012-01-21 Completed University of 00:00:00 [facility] Meningococcal 2012-01-21 Completed University of Vaccine 00:00:00 [facility] TDAP 2012-01-21 Completed University of 00:00:00 [facility] Varicella 2012-01-21 Completed University of (varivax)(chicken 00:00:00 [place] [facility] edical pox) Branch HEPATITIS A 2012-01-21 Completed University of 00:00:00 [facility] Meningococcal 2012-01-21 Completed University of Vaccine 00:00:00 [facility] TDAP 2012-01-21 Completed University of 00:00:00 [facility] Varicella 2012-01-21 Completed University of (varivax)(chicken 00:00:00 [place] M edical pox) Branch HEPATITIS A 2012-01-21 Completed University of 00:00:00 [facility] Meningococcal 2012-01-21 Completed University of Vaccine 00:00:00 [facility] TDAP 2012-01-21 Completed University of 00:00:00 [facility] Varicella 2012-01-21 Completed University of (varivax)(chicken 00:00:00 [place] [facility] edical pox) Branch HEPATITIS A 2012-01-21 Completed University of 00:00:00 [facility] Meningococcal 2012-01-21 Completed University of Vaccine 00:00:00 [facility] TDAP 2012-01-21 Completed University of 00:00:00 [facility] Varicella 2012-01-21 Completed University of (varivax)(chicken 00:00:00 [place] M edical pox) Branch HEPATITIS A 2012-01-21 Completed University of 00:00:00 [facility] Meningococcal 2012-01-21 Completed University of Vaccine 00:00:00 [facility] TDAP 2012-01-21 Completed University of 00:00:00 [facility] Varicella 2012-01-21 Completed University of (varivax)(chicken 00:00:00 [place] M edical pox) Branch HEPATITIS A 2012-01-21 Completed University of 00:00:00 [facility] Meningococcal 2012-01-21 Completed University of Vaccine 00:00:00 [facility] TDAP 2012-01-21 Completed University of 00:00:00 [facility] Varicella 2012-01-21 Completed University of (varivax)(chicken 00:00:00 [place] M edical pox) Branch HEPATITIS A 2012-01-21 Completed University of 00:00:00 [facility] Meningococcal 2012-01-21 Completed University of Vaccine 00:00:00 [facility] TDAP 2012-01-21 Completed University of 00:00:00 [facility] Varicella 2012-01-21 Completed University of (varivax)(chicken 00:00:00 [place] [facility] edical pox) Branch HEPATITIS A 2012-01-21 Completed University of 00:00:00 [facility] Meningococcal 2012-01-21 Completed University of Vaccine 00:00:00 [facility] TDAP 2012-01-21 Completed University of 00:00:00 [facility] Varicella 2012-01-21 Completed University of (varivax)(chicken 00:00:00 [place] [facility] edical pox) Branch HEPATITIS A 2012-01-21 Completed University of 00:00:00 [facility] Meningococcal 2012-01-21 Completed University of Vaccine 00:00:00 [facility] TDAP 2012-01-21 Completed University of 00:00:00 [facility] Varicella 2012-01-21 Completed University of (varivax)(chicken 00:00:00 [place] [facility] edical pox) Branch HEPATITIS A 2012-01-21 Completed University of 00:00:00 [facility] Meningococcal 2012-01-21 Completed University of Vaccine 00:00:00 [facility] TDAP 2012-01-21 Completed University of 00:00:00 [facility] Varicella 2012-01-21 Completed University of (varivax)(chicken 00:00:00 [place] M edical pox) Branch HEPATITIS A 2012-01-21 Completed University of 00:00:00 [facility] Meningococcal 2012-01-21 Completed University of Vaccine 00:00:00 [facility] TDAP 2012-01-21 Completed University of 00:00:00 [facility] Varicella 2012-01-21 Completed University of (varivax)(chicken 00:00:00 [place] M edical pox) Branch HEPATITIS A 2012-01-21 Completed University of 00:00:00 [facility] Meningococcal 2012-01-21 Completed University of Vaccine 00:00:00 [facility] TDAP 2012-01-21 Completed University of 00:00:00 [facility] Varicella 2012-01-21 Completed University of (varivax)(chicken 00:00:00 [facility] edical pox) Branch MMR 2005-01-08 Completed University of 00:00:00 [facility] MMR 2005-01-08 Completed University of 00:00:00 [facility] MMR 2005-01-08 Completed University of 00:00:00 [facility] MMR 2005-01-08 Completed University of 00:00:00 [facility] MMR 2005-01-08 Completed University of 00:00:00 [facility] MMR 2005-01-08 Completed University of 00:00:00 [facility] MMR 2005-01-08 Completed University of 00:00:00 [facility] MMR 2005-01-08 Completed University of 00:00:00 [facility] MMR 2005-01-08 Completed University of 00:00:00 [facility] MMR 2005-01-08 Completed University of 00:00:00 [facility] MMR 2005-01-08 Completed University of 00:00:00 [facility] MMR 2005-01-08 Completed University of 00:00:00 [facility] MMR 2005-01-08 Completed University of 00:00:00 [facility] MMR 2005-01-08 Completed University of 00:00:00 [facility] MMR 2005-01-08 Completed University of 00:00:00 [facility] MMR 2005-01-08 Completed University of 00:00:00 [facility] MMR 2005-01-08 Completed University of 00:00:00 [facility] MMR 2005-01-08 Completed University of 00:00:00 [facility] MMR 2005-01-08 Completed University of 00:00:00 [facility] MMR 2005-01-08 Completed University of 00:00:00 [facility] MMR 2005-01-08 Completed University of 00:00:00 [facility] DTAP 2004-12-07 Completed University of 00:00:00 [facility] MMR 2004-12-07 Completed University of 00:00:00 [facility] Pneumococcal 13 2004-12-07 Completed Universit y of Conjugate, PCV13 00:00:00 [place] [facility] dical (Prevnar 13) Branch Polio (IPV/OPV) 2004-12-07 Completed Universit y of 00:00:00 [facility] Varicella 2004-12-07 Completed University of (varivax)(chicken 00:00:00 [place] [facility] pox) Branch DTAP 2004-12-07 Completed University of 00:00:00 [facility] MMR 2004-12-07 Completed University of 00:00:00 [facility] Pneumococcal 13 2004-12-07 Completed Universit y of Conjugate, PCV13 00:00:00 [facility] (Prevnar 13) Branch Polio (IPV/OPV) 2004-12-07 Completed Universit y of 00:00:00 [facility] Varicella 2004-12-07 Completed University of (varivax)(chicken 00:00:00 [place] [facility] pox) Branch DTAP 2004-12-07 Completed University of 00:00:00 [facility] MMR 2004-12-07 Completed University of 00:00:00 [facility] Pneumococcal 13 2004-12-07 Completed Universit y of Conjugate, PCV13 00:00:00 [facility] dical (Prevnar 13) Branch Polio (IPV/OPV) 2004-12-07 Completed Universit y of 00:00:00 [facility] Varicella 2004-12-07 Completed University of (varivax)(chicken 00:00:00 [place] [facility] pox) Branch DTAP 2004-12-07 Completed University of 00:00:00 [facility] MMR 2004-12-07 Completed University of 00:00:00 [facility] Pneumococcal 13 2004-12-07 Completed Universit y of Conjugate, PCV13 00:00:00 [place] Me [facility]ical (Prevnar 13) Branch Polio (IPV/OPV) 2004-12-07 Completed Universit y of 00:00:00 [facility] Varicella 2004-12-07 Completed University of (varivax)(chicken 00:00:00 [place] [facility] edical pox) Branch DTAP 2004-12-07 Completed University of 00:00:00 [facility] MMR 2004-12-07 Completed University of 00:00:00 [facility] Pneumococcal 13 2004-12-07 Completed Universit y of Conjugate, PCV13 00:00:00 [facility] (Prevnar 13) Branch Polio (IPV/OPV) 2004-12-07 Completed Universit y of 00:00:00 [facility] Varicella 2004-12-07 Completed University of (varivax)(chicken 00:00:00 [place] [facility] pox) Branch DTAP 2004-12-07 Completed University of 00:00:00 [facility] MMR 2004-12-07 Completed University of 00:00:00 [facility] Pneumococcal 13 2004-12-07 Completed Universit y of Conjugate, PCV13 00:00:00 [facility]ical (Prevnar 13) Branch Polio (IPV/OPV) 2004-12-07 Completed Universit y of 00:00:00 [facility] Varicella 2004-12-07 Completed University of (varivax)(chicken 00:00:00 [facility] edical pox) Branch DTAP 2004-12-07 Completed University of 00:00:00 [facility] MMR 2004-12-07 Completed University of 00:00:00 [facility] Pneumococcal 13 2004-12-07 Completed Universit y of Conjugate, PCV13 00:00:00 [facility] (Prevnar 13) Branch Polio (IPV/OPV) 2004-12-07 Completed Universit y of 00:00:00 [facility] Varicella 2004-12-07 Completed University of (varivax)(chicken 00:00:00 [place] [facility] ed[facility] pox) Branch DTAP 2004-12-07 Completed University of 00:00:00 [facility] MMR 2004-12-07 Completed University of 00:00:00 [facility] Pneumococcal 13 2004-12-07 Completed Universit y of Conjugate, PCV13 00:00:00 [facility] (Prevnar 13) Branch Polio (IPV/OPV) 2004-12-07 Completed Universit y of 00:00:00 [facility] Varicella 2004-12-07 Completed University of (varivax)(chicken 00:00:00 [place] edical pox) Branch DTAP 2004-12-07 Completed University of 00:00:00 [facility] MMR 2004-12-07 Completed University of 00:00:00 [facility] Pneumococcal 13 2004-12-07 Completed Universit y of Conjugate, PCV13 00:00:00 [facility] (Prevnar 13) Branch Polio (IPV/OPV) 2004-12-07 Completed Universit y of 00:00:00 [facility] Varicella 2004-12-07 Completed [facility] (varivax)(chicken 00:00:00 [place] [facility] pox) [facility] DTAP 2004-12-07 Completed [facility] 00:00:00 [facility] MMR 2004-12-07 Completed [facility] 00:00:00 [facility] Pneumococcal 13 2004-12-07 Completed [facility] of Conjugate, PCV13 00:00:00 [facility] (Prevnar 13) Branch Polio (IPV/OPV) 2004-12-07 Completed [facility] 00:00:00 [facility] Varicella 2004-12-07 Completed [facility] (varivax)(chicken 00:00:00 [facility] edical pox) Branch DTAP 2004-12-07 Completed [facility] 00:00:00 [facility] MMR 2004-12-07 Completed [facility] 00:00:00 [facility] Pneumococcal 13 2004-12-07 Completed [facility] of Conjugate, PCV13 00:00:00 [facility] (Prevnar 13) Branch Polio (IPV/OPV) 2004-12-07 Completed [facility] 00:00:00 [facility] Varicella 2004-12-07 Completed [facility] (varivax)(chicken 00:00:00 [place] [facility] pox) [facility] DTAP 2004-12-07 Completed [facility] 00:00:00 [facility] MMR 2004-12-07 Completed [facility] 00:00:00 [facility] Pneumococcal 13 2004-12-07 Completed [facility] Conjugate, PCV13 00:00:00 [facility] (Prevnar 13) Branch Polio (IPV/OPV) 2004-12-07 Completed [facility] 00:00:00 [facility] Varicella 2004-12-07 Completed [facility] (varivax)(chicken 00:00:00 [place] [facility] pox) [facility] DTAP 2004-12-07 Completed [facility] 00:00:00 [facility] MMR 2004-12-07 Completed [facility] 00:00:00 [facility] Pneumococcal 13 2004-12-07 Completed [facility] of Conjugate, PCV13 00:00:00 [facility] (Prevnar 13) Branch Polio (IPV/OPV) 2004-12-07 Completed [facility] 00:00:00 [facility] Varicella 2004-12-07 Completed [facility] (varivax)(chicken 00:00:00 [place] [facility] pox) [facility] DTAP 2004-12-07 Completed [facility] 00:00:00 [facility] MMR 2004-12-07 Completed [facility] 00:00:00 [facility] Pneumococcal 13 2004-12-07 Completed [facility] of Conjugate, PCV13 00:00:00 [facility] (Prevnar 13) Branch Polio (IPV/OPV) 2004-12-07 Completed [facility] 00:00:00 [facility] Varicella 2004-12-07 Completed [facility] (varivax)(chicken 00:00:00 [place] [facility] pox) [facility] DTAP 2004-12-07 Completed [facility] 00:00:00 [facility] MMR 2004-12-07 Completed [facility] 00:00:00 [facility] Pneumococcal 13 2004-12-07 Completed [facility] of Conjugate, PCV13 00:00:00 [facility] (Prevnar 13) Branch Polio (IPV/OPV) 2004-12-07 Completed [facility] 00:00:00 [facility] Varicella 2004-12-07 Completed [facility] (varivax)(chicken 00:00:00 [place] [facility] pox) [facility] DTAP 2004-12-07 Completed [facility] 00:00:00 [facility] MMR 2004-12-07 Completed [facility] 00:00:00 [facility] Pneumococcal 13 2004-12-07 Completed [facility] of Conjugate, PCV13 00:00:00 [facility] (Prevnar 13) Branch Polio (IPV/OPV) 2004-12-07 Completed [facility] 00:00:00 [facility] Varicella 2004-12-07 Completed [facility] (varivax)(chicken 00:00:00 [place] [facility] pox) [facility] DTAP 2004-12-07 Completed [facility] 00:00:00 [facility] MMR 2004-12-07 Completed [facility] 00:00:00 [facility] Pneumococcal 13 2004-12-07 Completed [facility] Conjugate, PCV13 00:00:00 [place] [facility] (Prevnar 13) [facility] Polio (IPV/OPV) 2004-12-07 Completed [facility] 00:00:00 [facility] Varicella 2004-12-07 Completed [facility] (varivax)(chicken 00:00:00 [place] [facility] pox) [facility] DTAP 2004-12-07 Completed [facility] 00:00:00 [facility] MMR 2004-12-07 Completed [facility] 00:00:00 [facility] Pneumococcal 13 2004-12-07 Completed [facility] of Conjugate, PCV13 00:00:00 [facility] (Prevnar 13) Branch Polio (IPV/OPV) 2004-12-07 Completed [facility] 00:00:00 [facility] Varicella 2004-12-07 Completed [facility] (varivax)(chicken 00:00:00 [place] [facility]ox) [facility] DTAP 2004-12-07 Completed [facility] 00:00:00 [facility] MMR 2004-12-07 Completed [facility] 00:00:00 [facility] Pneumococcal 13 2004-12-07 Completed [facility] of Conjugate, PCV13 00:00:00 [facility] (Prevnar 13) Branch Polio (IPV/OPV) 2004-12-07 Completed [facility] 00:00:00 [facility] Varicella 2004-12-07 Completed [facility] (varivax)(chicken 00:00:00 [place] [facility] pox) [facility] DTAP 2004-12-07 Completed [facility] 00:00:00 [facility] MMR 2004-12-07 Completed [facility] 00:00:00 [facility] Pneumococcal 13 2004-12-07 Completed [facility] of Conjugate, PCV13 00:00:00 [facility] (Prevnar 13) Branch Polio (IPV/OPV) 2004-12-07 Completed [facility] 00:00:00 [facility] Varicella 2004-12-07 Completed [facility] (varivax)(chicken 00:00:00 [place] [facility] pox) [facility] DTAP 2004-12-07 Completed [facility] 00:00:00 [facility] MMR 2004-12-07 Completed [facility] 00:00:00 [facility] Pneumococcal 13 2004-12-07 Completed [facility] of Conjugate, PCV13 00:00:00 [facility] (Prevnar 13) Branch Polio (IPV/OPV) 2004-12-07 Completed [facility] 00:00:00 [facility] Varicella 2004-12-07 Completed [facility] (varivax)(chicken 00:00:00 [place] [facility] pox) [facility] DTAP 2001-03-04 Completed [facility] 00:00:00 [facility] HIB 3 Dose Schedule 2001-03-04 Completed Unive rsity of 00:00:00 [facility] Hep B, Adol or Pedi 2001-03-04 Completed Unive rsity of Dosage 00:00:00 [facility] Polio (IPV/OPV) 2001-03-04 Completed [facility] 00:00:00 [facility] DTAP 2001-03-04 Completed [facility] 00:00:00 [facility] HIB 3 Dose Schedule 2001-03-04 Completed Unive rsity of 00:00:00 [facility] Hep B, Adol or Pedi 2001-03-04 Completed Unive rsity of Dosage 00:00:00 [facility] Polio (IPV/OPV) 2001-03-04 Completed [facility] 00:00:00 [facility] DTAP 2001-03-04 Completed [facility] 00:00:00 [facility] HIB 3 Dose Schedule 2001-03-04 Completed Unive rsity of 00:00:00 [facility] Hep B, Adol or Pedi 2001-03-04 Completed Unive rsity of Dosage 00:00:00 [facility] Polio (IPV/OPV) 2001-03-04 Completed [facility] 00:00:00 [facility] DTAP 2001-03-04 Completed [facility] 00:00:00 [facility] HIB 3 Dose Schedule 2001-03-04 Completed Unive rsity of 00:00:00 [facility] Hep B, Adol or Pedi 2001-03-04 Completed [facility]ive rsity of Dosage 00:00:00 [facility] Polio (IPV/OPV) 2001-03-04 Completed [facility] 00:00:00 [facility] DTAP 2001-03-04 Completed [facility] 00:00:00 [facility] HIB 3 Dose Schedule 2001-03-04 Completed Unive rsity of 00:00:00 [facility] Hep B, Adol or Pedi 2001-03-04 Completed [facility]ive rsity of Dosage 00:00:00 [facility] Polio (IPV/OPV) 2001-03-04 Completed [facility] 00:00:00 [facility] DTAP 2001-03-04 Completed [facility] 00:00:00 [facility] HIB 3 Dose Schedule 2001-03-04 Completed Unive rsity of 00:00:00 [facility] Hep B, Adol or Pedi 2001-03-04 Completed [facility]ive rsity of Dosage 00:00:00 [facility] Polio (IPV/OPV) 2001-03-04 Completed [facility] 00:00:00 [facility] DTAP 2001-03-04 Completed [facility] 00:00:00 [facility] HIB 3 Dose Schedule 2001-03-04 Completed Unive rsity of 00:00:00 [facility] Hep B, Adol or Pedi 2001-03-04 Completed [facility]ive rsity of Dosage 00:00:00 [facility] Polio (IPV/OPV) 2001-03-04 Completed [facility] 00:00:00 [facility] DTAP 2001-03-04 Completed [facility] 00:00:00 [facility] HIB 3 Dose Schedule 2001-03-04 Completed Unive rsity of 00:00:00 [facility] Hep B, Adol or Pedi 2001-03-04 Completed [facility]ive rsity of Dosage 00:00:00 [facility] Polio (IPV/OPV) 2001-03-04 Completed [facility] 00:00:00 [facility] DTAP 2001-03-04 Completed [facility] 00:00:00 [facility] HIB 3 Dose Schedule 2001-03-04 Completed [facility] rsity of 00:00:00 [facility] Hep B, Adol or Pedi 2001-03-04 Completed Unive rsity of Dosage 00:00:00 [facility] Polio (IPV/OPV) 2001-03-04 Completed [facility] 00:00:00 [facility] DTAP 2001-03-04 Completed [facility] 00:00:00 [facility] HIB 3 Dose Schedule 2001-03-04 Completed [facility]ive rsity of 00:00:00 [facility] Hep B, Adol or Pedi 2001-03-04 Completed [facility]ive rsity of Dosage 00:00:00 [facility] Polio (IPV/OPV) 2001-03-04 Completed [facility] 00:00:00 [facility] DTAP 2001-03-04 Completed [facility] 00:00:00 [facility] HIB 3 Dose Schedule 2001-03-04 Completed [facility]ive rsity of 00:00:00 [facility] Hep B, Adol or Pedi 2001-03-04 Completed [facility]ive rsity of Dosage 00:00:00 [facility] Polio (IPV/OPV) 2001-03-04 Completed [facility] 00:00:00 [facility] DTAP 2001-03-04 Completed [facility] 00:00:00 [facility] HIB 3 Dose Schedule 2001-03-04 Completed [facility]ive rsity of 00:00:00 [facility] Hep B, Adol or Pedi 2001-03-04 Completed [facility]ive rsity of Dosage 00:00:00 [facility] Polio (IPV/OPV) 2001-03-04 Completed [facility] 00:00:00 [facility] DTAP 2001-03-04 Completed [facility] 00:00:00 [facility] HIB 3 Dose Schedule 2001-03-04 Completed [facility]ive rsity of 00:00:00 [facility] Hep B, Adol or Pedi 2001-03-04 Completed [facility]ive rsity of Dosage 00:00:00 [facility] Polio (IPV/OPV) 2001-03-04 Completed [facility] 00:00:00 [facility] DTAP 2001-03-04 Completed [facility] 00:00:00 [facility] HIB 3 Dose Schedule 2001-03-04 Completed [facility]ive rsity of 00:00:00 [facility] Hep B, Adol or Pedi 2001-03-04 Completed [facility]ive rsity of Dosage 00:00:00 [facility] Polio (IPV/OPV) 2001-03-04 Completed [facility] 00:00:00 [facility] DTAP 2001-03-04 Completed [facility] 00:00:00 [facility] HIB 3 Dose Schedule 2001-03-04 Completed [facility]ive rsity of 00:00:00 [facility] Hep B, Adol or Pedi 2001-03-04 Completed [facility]ive rsity of Dosage 00:00:00 [facility] Polio (IPV/OPV) 2001-03-04 Completed [facility] 00:00:00 [facility] DTAP 2001-03-04 Completed [facility] 00:00:00 [facility] HIB 3 Dose Schedule 2001-03-04 Completed [facility]ive rsity of 00:00:00 [facility] Hep B, Adol or Pedi 2001-03-04 Completed [facility]ive rsity of Dosage 00:00:00 [facility] Polio (IPV/OPV) 2001-03-04 Completed [facility] 00:00:00 [facility] DTAP 2001-03-04 Completed [facility] 00:00:00 [facility] HIB 3 Dose Schedule 2001-03-04 Completed [facility]ive rsity of 00:00:00 [facility] Hep B, Adol or Pedi 2001-03-04 Completed [facility]ive rsity of Dosage 00:00:00 [facility] Polio (IPV/OPV) 2001-03-04 Completed [facility] 00:00:00 [facility] DTAP 2001-03-04 Completed [facility] 00:00:00 [facility] HIB 3 Dose Schedule 2001-03-04 Completed Unive rsity of 00:00:00 [facility] Hep B, Adol or Pedi 2001-03-04 Completed [facility]ive rsity of Dosage 00:00:00 [facility] Polio (IPV/OPV) 2001-03-04 Completed [facility] 00:00:00 [facility] DTAP 2001-03-04 Completed [facility] 00:00:00 [facility] HIB 3 Dose Schedule 2001-03-04 Completed [facility]ive rsity of 00:00:00 [facility] Hep B, Adol or Pedi 2001-03-04 Completed [facility]ive rsity of Dosage 00:00:00 [facility] Polio (IPV/OPV) 2001-03-04 Completed [facility] 00:00:00 [facility] DTAP 2001-03-04 Completed [facility] 00:00:00 [facility] HIB 3 Dose Schedule 2001-03-04 Completed [facility]ive rsity of 00:00:00 [facility] Hep B, Adol or Pedi 2001-03-04 Completed [facility]ive rsity of Dosage 00:00:00 [facility] Polio (IPV/OPV) 2001-03-04 Completed [facility] 00:00:00 [facility] DTAP 2001-03-04 Completed [facility] 00:00:00 [facility] HIB 3 Dose Schedule 2001-03-04 Completed [facility] rsity of 00:00:00 [facility] Hep B, Adol or Pedi 2001-03-04 Completed [facility]ive rsity of Dosage 00:00:00 [facility] Polio (IPV/OPV) 2001-03-04 Completed [facility] 00:00:00 [facility] DTAP 2000-03-05 Completed [facility] 00:00:00 [facility] HIB 3 Dose Schedule 2000-03-05 Completed [facility]ive rsity of 00:00:00 [facility] Hep B, Adol or Pedi 2000-03-05 Completed [facility]ive rsity of Dosage 00:00:00 [facility] Polio (IPV/OPV) 2000-03-05 Completed [facility] 00:00:00 [facility] DTAP 2000-03-05 Completed [facility] 00:00:00 [facility] HIB 3 Dose Schedule 2000-03-05 Completed [facility] rsity of 00:00:00 [facility] Hep B, Adol or Pedi 2000-03-05 Completed [facility]ive rsity of Dosage 00:00:00 [facility] Polio (IPV/OPV) 2000-03-05 Completed [facility] 00:00:00 [facility] DTAP 2000-03-05 Completed [facility] 00:00:00 [facility] HIB 3 Dose Schedule 2000-03-05 Completed [facility] rsity of 00:00:00 [facility] Hep B, Adol or Pedi 2000-03-05 Completed [facility] rsity of Dosage 00:00:00 [facility] Polio (IPV/OPV) 2000-03-05 Completed [facility] 00:00:00 [facility] DTAP 2000-03-05 Completed [facility] 00:00:00 [facility] HIB 3 Dose Schedule 2000-03-05 Completed [facility] of 00:00:00 [facility] Hep B, Adol or Pedi 2000-03-05 Completed [facility] rs[facility] of Dosage 00:00:00 [facility] Polio (IPV/OPV) 2000-03-05 Completed [facility] 00:00:00 [facility] DTAP 2000-03-05 Completed [facility] 00:00:00 [facility] HIB 3 Dose Schedule 2000-03-05 Completed [facility] of 00:00:00 [facility] Hep B, Adol or Pedi 2000-03-05 Completed [facility] of Dosage 00:00:00 [facility] Polio (IPV/OPV) 2000-03-05 Completed [facility] 00:00:00 [facility] DTAP 2000-03-05 Completed [facility] 00:00:00 [facility] HIB 3 Dose Schedule 2000-03-05 Completed [facility] of 00:00:00 [facility] Hep B, Adol or Pedi 2000-03-05 Completed [facility] of Dosage 00:00:00 [facility] Polio (IPV/OPV) 2000-03-05 Completed [facility] 00:00:00 [facility] DTAP 2000-03-05 Completed [facility] 00:00:00 [facility] HIB 3 Dose Schedule 2000-03-05 Completed [facility] of 00:00:00 [facility] Hep B, Adol or Pedi 2000-03-05 Completed [facility] of Dosage 00:00:00 [facility] Polio (IPV/OPV) 2000-03-05 Completed [facility] 00:00:00 [facility] DTAP 2000-03-05 Completed [facility] 00:00:00 [facility] HIB 3 Dose Schedule 2000-03-05 Completed [facility] of 00:00:00 [facility] Hep B, Adol or Pedi 2000-03-05 Completed [facility] of Dosage 00:00:00 [facility] Polio (IPV/OPV) 2000-03-05 Completed [facility] 00:00:00 [facility] DTAP 2000-03-05 Completed [facility] 00:00:00 [facility] HIB 3 Dose Schedule 2000-03-05 Completed [facility] of 00:00:00 [facility] Hep B, Adol or Pedi 2000-03-05 Completed [facility] of Dosage 00:00:00 [facility] Polio (IPV/OPV) 2000-03-05 Completed [facility] 00:00:00 [facility] DTAP 2000-03-05 Completed [facility] 00:00:00 [facility] HIB 3 Dose Schedule 2000-03-05 Completed [facility] of 00:00:00 [facility] Hep B, Adol or Pedi 2000-03-05 Completed [facility] of Dosage 00:00:00 [facility] Polio (IPV/OPV) 2000-03-05 Completed [facility] 00:00:00 [facility] DTAP 2000-03-05 Completed [facility] 00:00:00 [facility] HIB 3 Dose Schedule 2000-03-05 Completed [facility] 00:00:00 [facility] Hep B, Adol or Pedi 2000-03-05 Completed [facility] of Dosage 00:00:00 [facility] Polio (IPV/OPV) 2000-03-05 Completed [facility] 00:00:00 [facility] DTAP 2000-03-05 Completed [facility] 00:00:00 [facility] HIB 3 Dose Schedule 2000-03-05 Completed [facility] of 00:00:00 [facility] Hep B, Adol or Pedi 2000-03-05 Completed [facility] of Dosage 00:00:00 [facility] Polio (IPV/OPV) 2000-03-05 Completed [facility] 00:00:00 [facility] DTAP 2000-03-05 Completed [facility] 00:00:00 [facility] HIB 3 Dose Schedule 2000-03-05 Completed [facility] of 00:00:00 [facility] Hep B, Adol or Pedi 2000-03-05 Completed [facility] of Dosage 00:00:00 [facility] Polio (IPV/OPV) 2000-03-05 Completed [facility] 00:00:00 [facility] DTAP 2000-03-05 Completed [facility] 00:00:00 [facility] HIB 3 Dose Schedule 2000-03-05 Completed [facility] of 00:00:00 [facility] Hep B, Adol or Pedi 2000-03-05 Completed [facility] of Dosage 00:00:00 [facility] Polio (IPV/OPV) 2000-03-05 Completed [facility] 00:00:00 [facility] DTAP 2000-03-05 Completed [facility] 00:00:00 [facility] HIB 3 Dose Schedule 2000-03-05 Completed [facility] of 00:00:00 [facility] Hep B, Adol or Pedi 2000-03-05 Completed [facility] of Dosage 00:00:00 [facility] Polio (IPV/OPV) 2000-03-05 Completed [facility] 00:00:00 [facility] DTAP 2000-03-05 Completed [facility] 00:00:00 [facility] HIB 3 Dose Schedule 2000-03-05 Completed [facility] 00:00:00 [facility] Hep B, Adol or Pedi 2000-03-05 Completed [facility] of Dosage 00:00:00 [facility] Polio (IPV/OPV) 2000-03-05 Completed [facility] 00:00:00 [facility] DTAP 2000-03-05 Completed [facility] 00:00:00 [facility] HIB 3 Dose Schedule 2000-03-05 Completed [facility] of 00:00:00 [facility] Hep B, Adol or Pedi 2000-03-05 Completed [facility] of Dosage 00:00:00 [facility] Polio (IPV/OPV) 2000-03-05 Completed [facility] 00:00:00 [facility] DTAP 2000-03-05 Completed [facility] 00:00:00 [facility] HIB 3 Dose Schedule 2000-03-05 Completed [facility] 00:00:00 [facility] Hep B, Adol or Pedi 2000-03-05 Completed [facility] of Dosage 00:00:00 [facility] Polio (IPV/OPV) 2000-03-05 Completed [facility] 00:00:00 [facility] DTAP 2000-03-05 Completed [facility] 00:00:00 [facility] HIB 3 Dose Schedule 2000-03-05 Completed [facility] 00:00:00 [facility] Hep B, Adol or Pedi 2000-03-05 Completed [facility] of Dosage 00:00:00 [facility] Polio (IPV/OPV) 2000-03-05 Completed [facility] 00:00:00 [facility] DTAP 2000-03-05 Completed [facility] 00:00:00 [facility] HIB 3 Dose Schedule 2000-03-05 Completed [facility] 00:00:00 [facility] Hep B, Adol or Pedi 2000-03-05 Completed [facility] of Dosage 00:00:00 [facility] Polio (IPV/OPV) 2000-03-05 Completed [facility] 00:00:00 [facility] DTAP 2000-03-05 Completed [facility] 00:00:00 [facility] HIB 3 Dose Schedule 2000-03-05 Completed [facility] 00:00:00 [facility] Hep B, Adol or Pedi 2000-03-05 Completed [facility] of Dosage 00:00:00 [facility] Polio (IPV/OPV) 2000-03-05 Completed [facility] 00:00:00 [facility] DTAP 1999 Completed [facility] 00:00:00 [facility] HIB 3 Dose Schedule 1999 Completed [facility] 00:00:00 [facility] Hep B, Adol or Pedi 1999 Completed [facility] of Dosage 00:00:00 [facility] Polio (IPV/OPV) 1999 Completed [facility] 00:00:00 [facility] DTAP 1999 Completed [facility] 00:00:00 [facility] HIB 3 Dose Schedule 1999 Completed [facility] 00:00:00 [facility] Hep B, Adol or Pedi 1999 Completed [facility] of Dosage 00:00:00 [facility] Polio (IPV/OPV) 1999 Completed [facility] 00:00:00 [facility] DTAP 1999 Completed [facility] 00:00:00 [facility] HIB 3 Dose Schedule 1999 Completed [facility] 00:00:00 [facility] Hep B, Adol or Pedi 1999 Completed [facility] Dosage 00:00:00 [facility] Polio (IPV/OPV) 1999 Completed [facility] 00:00:00 [facility] DTAP 1999 Completed [facility] 00:00:00 [facility] HIB 3 Dose Schedule 1999 Completed [facility] 00:00:00 [facility] Hep B, Adol or Pedi 1999 Completed [facility] of Dosage 00:00:00 [facility] Polio (IPV/OPV) 1999 Completed [facility] 00:00:00 [facility] DTAP 1999 Completed [facility] 00:00:00 [facility] HIB 3 Dose Schedule 1999 Completed [facility] 00:00:00 [facility] Hep B, Adol or Pedi 1999 Completed [facility] Dosage 00:00:00 [facility] Polio (IPV/OPV) 1999 Completed [facility] 00:00:00 [facility] DTAP 1999 Completed [facility] 00:00:00 [facility] HIB 3 Dose Schedule 1999 Completed [facility] 00:00:00 [facility] Hep B, Adol or Pedi 1999 Completed [facility] Dosage 00:00:00 [facility] Polio (IPV/OPV) 1999 Completed [facility] 00:00:00 [facility] DTAP 1999 Completed [facility] 00:00:00 [facility] HIB 3 Dose Schedule 1999 Completed [facility] 00:00:00 [facility] Hep B, Adol or Pedi 1999 Completed [facility] Dosage 00:00:00 [facility] Polio (IPV/OPV) 1999 Completed [facility] 00:00:00 [facility] DTAP 1999 Completed [facility] 00:00:00 [facility] HIB 3 Dose Schedule 1999 Completed [facility] 00:00:00 [facility] Hep B, Adol or Pedi 1999 Completed [facility] of Dosage 00:00:00 [facility] Polio (IPV/OPV) 1999 Completed [facility] 00:00:00 [facility] DTAP 1999 Completed University of 00:00:00 [facility] HIB 3 Dose Schedule 1999 Completed Unive rsity of 00:00:00 [facility] Hep B, Adol or Pedi 1999 Completed Unive rsity of Dosage 00:00:00 [facility] Polio (IPV/OPV) 1999 Completed [facility]it y [facility] 00:00:00 [facility] DTAP 1999 Completed University of 00:00:00 [facility] HIB 3 Dose Schedule 1999 Completed Unive rsity of 00:00:00 [facility] Hep B, Adol or Pedi 1999 Completed Unive rsity of Dosage 00:00:00 [facility] Polio (IPV/OPV) 1999 Completed Universit y of 00:00:00 [facility] DTAP 1999 Completed University of 00:00:00 [facility] HIB 3 Dose Schedule 1999 Completed Unive rsity of 00:00:00 [facility] Hep B, Adol or Pedi 1999 Completed Unive rsity of Dosage 00:00:00 [facility] Polio (IPV/OPV) 1999 Completed Universit y of 00:00:00 [facility] DTAP 1999 Completed University of 00:00:00 [facility] HIB 3 Dose Schedule 1999 Completed Unive rsity of 00:00:00 [facility] Hep B, Adol or Pedi 1999 Completed Unive rsity of Dosage 00:00:00 [facility] Polio (IPV/OPV) 1999 Completed Universit y of 00:00:00 [facility] DTAP 1999 Completed University of 00:00:00 [facility] HIB 3 Dose Schedule 1999 Completed Unive rsity of 00:00:00 [facility] Hep B, Adol or Pedi 1999 Completed Unive rsity of Dosage 00:00:00 [facility] Polio (IPV/OPV) 1999 Completed Universit y of 00:00:00 [facility] DTAP 1999 Completed University of 00:00:00 [facility] HIB 3 Dose Schedule 1999 Completed Unive rsity of 00:00:00 [facility] Hep B, Adol or Pedi 1999 Completed Unive rsity of Dosage 00:00:00 [facility] Polio (IPV/OPV) 1999 Completed Universit y of 00:00:00 [facility] DTAP 1999 Completed University of 00:00:00 [facility] HIB 3 Dose Schedule 1999 Completed Unive rsity of 00:00:00 [facility] Hep B, Adol or Pedi 1999 Completed Unive rsity of Dosage 00:00:00 [facility] Polio (IPV/OPV) 1999 Completed Universit y of 00:00:00 [facility] DTAP 1999 Completed University of 00:00:00 [facility] HIB 3 Dose Schedule 1999 Completed Unive rsity of 00:00:00 [facility] Hep B, Adol or Pedi 1999 Completed Unive rsity of Dosage 00:00:00 [facility] Polio (IPV/OPV) 1999 Completed Universit y of 00:00:00 [facility] DTAP 1999 Completed University of 00:00:00 [facility] HIB 3 Dose Schedule 1999 Completed Unive rsity of 00:00:00 [facility] Hep B, Adol or Pedi 1999 Completed Unive rsity of Dosage 00:00:00 [facility] Polio (IPV/OPV) 1999 Completed Universit y of 00:00:00 [facility] DTAP 1999 Completed University of 00:00:00 [facility] HIB 3 Dose Schedule 1999 Completed Unive rsity of 00:00:00 [facility] Hep B, Adol or Pedi 1999 Completed Unive rsity of Dosage 00:00:00 [facility] Polio (IPV/OPV) 1999 Completed Universit y of 00:00:00 [facility] DTAP 1999 Completed University of 00:00:00 [facility] HIB 3 Dose Schedule 1999 Completed Unive rsity of 00:00:00 [facility] Hep B, Adol or Pedi 1999 Completed Unive rsity of Dosage 00:00:00 [facility] Polio (IPV/OPV) 1999 Completed Universit [facility] of 00:00:00 [facility] DTAP 1999 Completed University of 00:00:00 [facility] HIB 3 Dose Schedule 1999 Completed Unive rsity of 00:00:00 [facility] Hep B, Adol or Pedi 1999 Completed Unive rsity of Dosage 00:00:00 [facility] Polio (IPV/OPV) 1999 Completed Universit y of 00:00:00 [facility] DTAP 1999 Completed University of 00:00:00 [facility] HIB 3 Dose Schedule 1999 Completed Unive rsity of 00:00:00 [facility] Hep B, Adol or Pedi 1999 Completed Unive rsity of Dosage 00:00:00 [facility] Polio (IPV/OPV) 1999 Completed Universit y of 00:00:00 [facility] Vital Signs Vital Name Observation Time Observation Value Comments Source Systolic blood 2021-09-13 07:00:00 121 mm[Hg] Univer sity of pressure [facility] Diastolic blood 2021-09-13 07:00:00 84 mm[Hg] Unive rsity of pressure [facility] Heart rate 2021-09-13 07:00:00 98 /min Universi ty of [facility] Respiratory rate 2021-09-13 07:00:00 20 /min Univ ersity of [facility] Oxygen saturation in 2021-09-13 07:00:00 98 /min University of Arterial blood by [place] [employer] walter Pulse oximetry Branch Body temperature 2021-09-13 [...] 20:48:00 96 mm[Hg] Unive rsity of pressure [facility] Heart rate 2020-12-31 20:48:00 83 /min Universi [...] 100 /min University of Arterial blood by [employer]sell walter Pulse oximetry Branch Systolic blood 2020-11-07 [...] 92 /min University of Arterial blood by [facility] Pulse oximetry Branch Body temperature 2020-08-09 05:00:00 37.44 Radha Univ ersity of [facility] Body height 2020-08-09 05:00:00 162.6 cm Universi ty of [facility] Body weight 2020-08-09 05:00:00 114.306 kg Universi ty of [facility] BMI 2020-08-09 05:00:00 43.26 kg/m2 Universi ty of [facility] Systolic blood 2020-01-08 07:00:00 137 mm[Hg] Univer sity of pressure [facility] Diastolic blood 2020-01-08 07:00:00 82 mm[Hg] Unive rsity of pressure [facility] Heart rate 2020-01-08 07:00:00 80 /min Universi ty of [facility] Body temperature 2020-01-08 07:00:00 36.89 Radha Univ ersity of [facility] Respiratory rate 2020-01-08 07:00:00 11 /min Univ ersity of [facility] Oxygen saturation in 2020-01-08 07:00:00 95 /min University of Arterial blood by [facility] Pulse oximetry Branch Body weight 2020-01-08 05:39:00 108.863 kg Universi ty of [facility] Systolic blood 2020-01-08 07:00:00 137 mm[Hg] Univer sity of pressure [facility] Diastolic blood 2020-01-08 07:00:00 82 mm[Hg] Unive rsity of pressure [facility] Heart rate 2020-01-08 07:00:00 80 /min Universi ty of [facility] Body temperature 2020-01-08 07:00:00 36.89 Radha Univ ersity of [facility] Respiratory rate 2020-01-08 07:00:00 11 /min Univ ersity of [facility] Oxygen saturation in 2020-01-08 07:00:00 95 /min University of Arterial blood by [facility] Pulse oximetry Branch Body weight 2020-01-08 05:39:00 108.863 kg Universi ty of [facility] Procedures Procedure Date / Time Performed Performing Clinician [facility] CONSENT/REFUSAL FOR 2021-09-13 05:29:08 Doctor Unassigned, No Un [facility] DIAGNOSIS AND Name Medical Branch TREATMENT NOTICE OF PRIVACY 2021-09-13 05:28:35 Doctor Unassigned, No [facility] POCT TEST 2020-12-31 21:04:00 Perry Herndon [facility] URINALYSIS 2020-12-31 20:58:00 Perry Herndon [facility] CONSENT/REFUSAL FOR 2020-12-31 20:17:00 Doctor Unassigned, No Un [facility] [place] DIAGNOSIS AND Name Medical [facility] TREATMENT POCT TEST 2020-10-17 19:59:00 Felipa Briseno [facility] GARDASIL 9 (HPV 9V) 2020-10-17 19:16:48 Felipa Briseno [facility] VACCINE [facility] CONSENT/REFUSAL FOR 2020-10-17 17:25:15 Doctor Unassigned, No Un [facility] [place] DIAGNOSIS AND Name Medical [place] TREATMENT ASSIGNMENT OF BENEFITS 2020-10-17 17:24:54 Doctor Unassigned, No [facility] BASIC METABOLIC PANEL 2020-08-09 05:20:00 Morena Benton [facility] (NA, K, CL, CO2, Medical Branch GLUCOSE, BUN, CREATININE, CA) CBC WITH DIFF 2020-08-09 05:20:00 Morena Benton [facility] POCT TEST 2020-08-09 05:05:00 Morena Benton [facility] URINALYSIS 2020-08-09 05:03:00 Morena Benton [facility] NOTICE OF PRIVACY 2020-08-09 04:47:00 Doctor Unassigned, No [facility] [place] CONSENT/REFUSAL FOR 2020-08-09 04:46:34 Doctor Unassigned, No Un [facility] [place] DIAGNOSIS AND Name Medical [place] TREATMENT XR CHEST 1 VW 2020-01-08 06:19:33 El Hussein [facility] LIPASE 2020-01-08 06:14:00 El Hussein [facility] TROPONIN I 2020-01-08 06:14:00 El Hussein [facility] HEPATIC FUNCTION PANEL 2020-01-08 06:14:00 El Hussein [facility] ([id number]) [facility] (ALB,T.PRO,BILI T,BU/BC,ALT,AST,ALK PHOS) BASIC METABOLIC PANEL 2020-01-08 06:14:00 El Hussein [facility] (NA, K, CL, CO2, Medical Branch GLUCOSE, BUN, CREATININE, CA) CBC WITH DIFF 2020-01-08 06:14:00 El Hussein [facility] URINALYSIS 2020-01-08 06:14:00 El Hussein [facility] POCT TEST 2020-01-08 06:13:00 El Hussein [facility] EKG-12 LEAD 2020-01-08 05:54:25 El Hussein [facility] Encounters Start End Encounter Admission Attending Care Care Encounter Source Date/Time Date/Time Type Type Clinicians Facility Department ID 2021-04-02 Emergency [facility] [id number] [facility] 2021-09-13 2021-09-13 Emergency X [facility] ERT [id number] Univers 00:42:00 02:04:00 PRAKASH [facility] 2021-09-13 2021-09-13 Emergency [facility] [id number] Univers 00:42:00 02:04:00 Prakash Sykes [place] [id number] i ty [facility] [id number] [phone] [address] 2021-03-02 2021-03-02 Telephone [facility] [id number] Univers 00:00:00 00:00:00 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 2021-02-19 2021-02-19 Outpatient R AKINSIPE, [facility] [id number] Univers 08:15:00 08:15:00 FELIPA ity o f [facility] 2021-02-06 2021-02-06 Outpatient R AKINSIPE, [facility] [id number] Univers 10:30:00 10:30:00 FELIPA [id number] ity o f [facility] 2021-02-06 2021-02-06 Outpatient R AKINSIPE, [facility] [id number] Univers 10:30:00 10:30:00 FLEIPA ity o [facility] 2020-12-31 2020-12-31 Emergency [facility] [id number] Univers 16:05:00 18:56:00 Annabella Almanzar [place] [id number] ity [facility] 4.2.7.2.686 [place] [facility] [phone] [facility] 084 [place] 2020-12-26 2020-12-26 Outpatient [facility] [id number] Univers 16:00:00 16:00:00 [id number] ity of [facility] 2020-12-25 2020-12-25 Telephone [facility] [id number] Univers 00:00:00 00:00:00 Felipa Messina 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 [id number] ity [facility] [id number] [place] MATERNAL [id number] [facility] ical & CHILD [address] [place] [address] 2020-12-24 2020-12-24 Nurse Lise Garcia [id number] Univers 00:00:00 00:00:00 Triage MARCIO [id number] it y of [facility] 4.2.7.2.686 [place] [phone] [facility] 019 Branch 2020-11-07 2020-11-07 Office [facility] [id number] Univers 09:33:35 11:41:19 Visit Felipa Messina 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 [id number] ity of [facility] [id number] [place] MATERNAL [id number] [facility] & CHILD [address] [place] [address] 2020-11-07 2020-11-07 Outpatient [facility] [id number] 4L-20 Univers 09:30:00 09:30:00 FELIPA [id number] ity o f [facility] 2020-11-07 2020-11-07 Outpatient R [facility] [id number] Univers 09:30:00 09:30:00 FELIPA ity o f [facility] 2020-11-03 2020-11-03 Telephone [facility] [id number] Univers 00:00:00 00:00:00 Felipa C 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 [id number] ity of [facility] [id number] [place] as MATERNAL [id number] [facility] & CHILD [address] [place] [address] 2020-11-02 2020-11-02 Telephone [facility] 1.2.840.114 [id number] Univers 00:00:00 00:00:00 Felipa C 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 [id number] ity of [facility] 4.2.7.2.686 [place] MATERNAL [phone] [facility] CHILD [address] [place] [address] 2020-11-01 2020-11-01 Refill [facility] [id number] Univers 00:00:00 00:00:00 Felipa C 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 [id number] ity of [facility] [id number] [place] MATERNAL [phone] [facility] & CHILD [address] [place] [address] 2020-11-01 2020-11-01 Letter ELDA Jonas [id number] Univers 00:00:00 00:00:00 (Out) Jake [facility] [id number] i ty of [facility] 4.2.7.2.686 [place] [phone] [address] 2020-10-27 2020-10-27 Outpatient R [facility] [id number] Univers 15:30:00 15:30:00 [id number] ity of [facility] 2020-10-27 2020-10-27 Outpatient R [facility] [id number] Univers 15:30:00 15:30:00 ity of [facility] 2020-10-19 2020-10-19 Telephone [facility] [id number] Univers 00:00:00 00:00:00 Felipa Messina 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 [id number] ity of [facility] 4.2.7.2.686 [place] as MATERNAL [id number] [facility] & CHILD [address] [place] [address] 2020-10-17 2020-10-17 Office [facility] [id number] Univers 12:46:36 14:56:59 Visit Felipa Messina 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 [id number] ity of [facility] 4.2.7.2.686 [place] as MATERNAL [phone] [facility] & [address] 2020-10-17 2020-10-17 Outpatient R R [facility] [id number] Univers 13:00:00 13:00:00 FELIPA mills o [facility] 2020-10-17 2020-10-17 Orders Doctor GREGG 1.2.840.114 [id number] Univers 00:00:00 00:00:00 Only Unassigned, MARCIO 350.1.13.10 ity of [facility] 4.2.7.2.686 [place] as [phone] [facility] 009 Branch 2020-08-08 2020-08-09 Emergency [facility] 1.2.840.114 [id number] Univers 22:53:00 01:02:00 Morena Yost 350.1.13.10 ity of [place] 4.2.7.2.686 [place] [facility] [phone] [facility] 084 [place] 2020-08-08 2020-08-08 Emergency [facility] [id number] Univers 22:53:00 22:53:[address] [facility] 2020-08-08 2020-08-08 Orders Doctor MARYSOL 1.2.840.114 [id number] Univers 00:00:00 00:00:00 Only Unassigned, MARCIO 350.1.13.10 ity of [place] [facility] 4.2.7.2.686 [facility] [id number] [facility] 009 Branch 2020-01-08 2020-01-08 Emergency El Hussein [facility] [id number] 00:31:00 02:30:00 T [place] 350.1.13.10 [place] 4.2.7.2.686 [place] [phone] [facility] 2020-01-08 2020-01-08 Emergency El Hussein [facility] 1.2.840.114 [id number] Univers 00:31:00 02:30:00 T [place] 350.1.13.10 i ty of [place] 4.2.7.2.686 [facility] s [place] [id number] [facility] 084 [place] 2020-01-08 2020-01-08 Emergency X EL HUSSEIN [facility] ERT [id number] Univers 00:31:00 00:31:[address] [facility] Results Test Description Test Time Test Comments Results Result Comments Source URINALYSIS 2020-12-31 21:40:37 Test Item Value Reference Range Interpretation Comme nts APPEARANCE (test code = Hazy Clear A 2230816163) COLOR (test code = 4029709615) Yellow Yellow PH (test code = 4931424728) 4.8-8.0 SP GRAVITY (test code = 1.003-1.030 8201711218) GLU U QUAL (test code = Normal Normal 5208312958) BLOOD (test code = 0235535012) 2+ Negative A KETONES (test code = 4938145165) Negative Negative PROTEIN (test code = 2887-8) Negative Negative UROBILIN (test code = Normal Normal 2519019792) BILIRUBIN (test code = Negative Negative 2779249897) NITRITE (test code = 5768769731) Negative Negative LEUK MAXIMINO (test code = Negative Negative 2917451678) RBC/HPF (test code = 4342617176) See_Comment [Automated message] The system which ge nerated this result transmit jill reference range: 0 - 3 HP F. The reference range was not used to interpret th is result as normal/abnormal . WBC/HPF (test code = 0889010858) See_Comment [Automated message] The system which ge nerated this result transmit jill reference range: 0 - 5 HP F. The reference range was not used to interpret th is result as normal/abnormal . BACTERIA (test code = Few Negative A 2487043683) MUCOUS (test code = 6721050676) Slight Negative LPF A SQ EPITH (test code = HPF 8008394918) HYAL CAST (test code = See_Comment [Aut omated message] The 4148904348) system which ge nerated this result transmit jill reference range: <=2 LPF. The reference range was not u sed to interpret this result as normal/abnormal . Lab Interpretation (test code = Abnormal 22766-2) [facility] [id number] 21:04:00 Test Item Value Reference Range Interpretation Comments POCT PREG (test code = 1605) negative On board controls acceptable with present C Line (test code = 3574) POCT PREG LOT # (test code = 3575) [id number] POCT PREG TEST DATE (test 06/01/2022 code = 3576) Lab Interpretation (test code = Normal 34995-1) [facility] [id number] 20:00:00 Test Item Value Reference Range Interpretation Comments POCT PREG (test code = 1605) Negative On board controls acceptable with C Yes Line (test code = 3574) POCT PREG LOT # (test code = 3575) POCT PREG TEST DATE (test code = 3576) [facility] [id number] 20:00:00 Test Item Value Reference Range Interpretation Comments POCT PREG (test code = 1605) Negative On board controls acceptable with C Yes Line (test code = 3574) POCT PREG LOT # (test code = 3575) POCT PREG TEST DATE (test code = 3576) [facility] 05:59:35 Test Item Value Reference Range Interpretation Comments APPEARANCE (test code = Clear Clear 4344335058) COLOR (test code = Yellow Yellow 9286523623) PH (test code = 4.8-8.0 2475852815) SP GRAVITY (test code = 1.003-1.030 8668443172) GLU U QUAL (test code = Normal Normal 8591961496) BLOOD (test code = 1+ Negative A 8816833622) KETONES (test code = Negative Negative 3851488320) PROTEIN (test code = Negative Negative 2887-8) UROBILIN (test code = Normal Normal 8036891853) BILIRUBIN (test code = Negative Negative 7348853381) NITRITE (test code = Negative Negative 3647447767) LEUK MAXIMINO (test code = Negative Negative 9594613315) RBC/HPF (test code = See_Comment [Autom ated message] 2210774764) The system Hybrent generated this result transmitted ref erence range: 0 - 3 HP F. The reference range was not used to int erpret this result as normal/abnormal . WBC/HPF (test code = See_Comment [Autom ated message] 4449718889) The system Hybrent generated this result transmitted ref erence range: 0 - 5 HP F. The reference range was not used to int erpret this result as normal/abnormal . BACTERIA (test code = Few Negative A 8243505612) MUCOUS (test code = Slight Negative LPF A 4229121400) SQ EPITH (test code = HPF 5326463790) Lab Interpretation (test Abnormal code = 26347-0) [facility] Metabolic Panel (NA, K, CL, CO2, GLUCOSE, BUN, CREATININE, CA)2020-08-09 05:38:20 Test Item Value Reference Range Interpretation Comments NA (test code = 137 mmol/L 135-145 3758951420) K (test code = 3.8 mmol/L 3.5-5.0 3280174852) CL (test code = 102 mmol/L 98-108 0110660942) CO2 TOTAL (test code = 26 mmol/L 23-31 4983558870) AGAP (test code = 2-16 5871710798) BUN (test code = 9 mg/dL 7-23 6175609733) GLUCOSE (test code = 83 mg/dL 70-110 1622058427) CREATININE (test code 0.67 mg/dL 0.50-1.04 = 6087924280) CALCIUM (test code = 9.4 mg/dL 8.6-10.6 1627399658) eGFR Calculation mL/min/1.73m2 (Non-) (test code = 8138150907) eGFR Calculation mL/min/1.73m2 () (test code = 0601262334) AVA (test code = AVA) Association of [...] urine or abnormalities in imaging tests). [facility] [id number] 05:05:00 Test Item Value Reference Range Interpretation Comments POCT PREG (test code = 1605) neg On board controls acceptable with yes C Line (test code = 3574) POCT PREG LOT # (test code = 3575) [id number] POCT PREG TEST DATE (test 04/01/2022 code = 3576) Lab Interpretation (test code = Normal 93366-6) [facility] [id number] 06:59:00 Test Item Value Reference Range Interpretation Comments TROPONIN I (test <0.012 See_Comment [Automated code = 7981650208) message] The system which generated this result [...] ? Lab Interpretation Normal (test code = 05825-7) [facility] (NA, K, CL, CO2, GLUCOSE, BUN, CREATININE, CA)2020-01-08 06:48:00 Test Item Value Reference Range Interpretation Comments NA (test code = 138 mmol/L 135-145 5308632881) K (test code = 4.0 mmol/L 3.5-5 1870389434) CL (test code = 106 mmol/L 98-108 5293282304) CO2 TOTAL (test code = 24 mmol/L 23-31 3534911552) AGAP (test code = 2-16 7002628974) BUN (test code = 10 mg/dL 7-23 2524685216) GLUCOSE (test code = 91 mg/dL 70-110 9409799894) CREATININE (test code 0.64 mg/dL 0.5-1.04 = 8277429948) CALCIUM (test code = 9.3 mg/dL 8.6-10.6 7417590499) eGFR Calculation mL/min/1.73m2 (Non-) (test code = 1013908263) eGFR Calculation mL/min/1.73m2 () (test code = 7634290899) AVA (test code = AVA) Association of [...] urine or abnormalities in imaging tests). [facility] (ALB, T.PRO, BILI T, BU/BC, ALT, AST, ALK PHOS)2020-01-08 06:48:00 Test Item Value Reference Range Interpretation Comments TOTAL BILI (test code = 6155275178) 0.2 mg/dL 0.1-1.1 BILI UNCON (test code = 8155759775) 0.4 mg/dL 0.1-1.1 BILI CONJ (test code = 9836566086) 0.0 mg/dL 0-0.3 T PROTEIN (test code = 5092013773) 7.4 g/dL 6.3-8.2 ALBUMIN (test code = 9758937008) 4.6 g/dL 3.5-5 ALK PHOS (test code = 0389495364) 45 U/L 34-122 ALTv (test code = 1742-6) 22 U/L 5-35 AST(SGOT) (test code = 8620673426) 27 U/L 13-40 Lab Interpretation (test code = Normal 29851-3) [facility] [id number] 06:48:00 Test Item Value Reference Range Interpretation Comments LIPASE (test code = 1539663575) 78 U/L 0-220 Lab Interpretation (test code = Normal 93797-7) [facility] Paso[facility]inalysis2020-08-08 06:41:00 Test Item Value Reference Range Interpretation Comments APPEARANCE (test code = Clear Clear 3484682254) COLOR (test code = Colorless Yellow A [id number]) PH (test code = 4.8-8.0 1907175686) SP GRAVITY (test code = 1.003-1.030 7691659091) GLU U QUAL (test code = Normal Normal 5206636929) BLOOD (test code = 1+ Negative A 6418463679) KETONES (test code = Negative Negative 5518838443) PROTEIN (test code = Negative Negative 2887-8) UROBILIN (test code = Normal Normal 2209035833) BILIRUBIN (test code = Negative Negative 2580857233) NITRITE (test code = Negative Negative 3461488413) LEUK MAXIMINO (test code = Negative Negative 9627892446) RBC/HPF (test code = See_Comment [Autom ated message] 0166586949) The system Hybrent generated this result transmit jill reference range : 0 - 3 HPF. The refe rence range was not u sed to interpret th is result as normal/abnormal . WBC/HPF (test code = See_Comment [Autom ated message] 8610178167) The system Hybrent generated this result transmit jill reference range : 0 - 5 HPF. The refe rence range was not u sed to interpret th is result as normal/abnormal . BACTERIA (test code = Few Negative A 7593841773) SQ EPITH (test code = HPF 6324792972) Lab Interpretation (test Abnormal code = 47497-8) General acute hospital with [id number] 06:31:00 Test Item Value Reference Range Interpretation [...] RDW-SD (test code = 39.7 fL 39-49.9 86584-6) RDW-CV (test code = 13.2 % 12-15.5 788-0) PLT (test code = See_Comment H [Automated 777-3) message] The sy stem which generated this result transmitted reference range : 166 - 358 10*3/ ?L. The reference r karishma was not used to interpret this result as normal/abnormal . MPV (test code = 10.2 fL 9.5-12.9 11842-9) NRBC/100 WBC (test See_Comment [Automat ed code = 7727813752) message] The system which generated this result transmitted reference range : 0.0 - 10.0 /100 WBCs. The refer ence range was not u sed to interpret th is result as normal/abnormal . NRBC x10^3 (test code <0.01 See_Comment [Auto mated = 3737327990) message] The s ystem which generated this result transmitted reference range : 10*3/?L. The reference range was not used to interpret this result as normal/abnormal . GRAN MAT (NEUT) % 48.6 % (test code = 770-8) IMM GRAN % (test code 0.60 % = 1752170560) LYMPH % (test code = 41.9 % 736-9) MONO % (test code = 6.3 % 5905-5) EOS % (test code = 2.2 % 713-8) BASO % (test code = 0.4 % 706-2) GRAN MAT x10^3(ANC) 5.09 10*3/uL 1.88-7.09 (test code = 6830314968) IMM GRAN x10^3 (test 0.06 10*3/uL 0-0.06 code = 1341437669) LYMPH x10^3 (test code 4.38 10*3/uL 1.32-3.29 H = 731-0) MONO x10^3 (test code 0.66 10*3/uL 0.33-0.92 = 742-7) EOS x10^3 (test code = 0.23 10*3/uL 0.03-0.39 711-2) BASO x10^3 (test code 0.04 10*3/uL 0.01-0.07 = 704-7) Lab Interpretation Abnormal (test code = 51966-8) [id number] Test Item Value Reference Range Interpretation Comments POCT PREG (test code = 1605) negative On board controls acceptable with positive C Line (test code = 3574) POCT PREG LOT # (test code = 3575) [id number] POCT PREG TEST DATE (test code = 3576) Lab Interpretation (test code = Normal 81480-2) [facility]"
[2022-02-14 23:59] LABS: Absolute Lymphocytes (CBC) 0.4 K/uL (0.7-4.9); Hematocrit 40.7 % (36.0-45.0); Lymphocytes % 4.1 % (15.3-44.8); MCV 82.2 fL (80-100); MPV 8.2 fL (7.6-11.3); RBC Red Blood Cell Count 4.95 M/uL (3.86-4.86)
[2022-02-15] MEDS ORDERED: NA CHLORIDE 0.9% 1,000 ML ONE (00:02)
[2022-02-15] MEDS ORDERED: ONDANSETRON 4 MG/2 ML VIAL ONE (00:02)
[2022-02-15 00:23] LABS: Bilirubin Total 0.5 mg/dL (0.2-1.0); Potassium 3.9 mmol/L (3.5-5.1); Protein, Total 7.4 g/dL (6.4-8.2)
[2022-02-15] MEDS ORDERED: DICYCLOMINE HCL 10 MG CAP ONE (00:54)
--- NOTE | 2022-02-15 03:21 | ER ---
Nurse's Notes [facility] Name: Gisele Arechiga Age: 22 yrs Sex: Female : 2000 Arrival Date: 02/14/2022 Time: 23:28 Bed 8 Private MD: Diagnosis: Nausea with vomiting, unspecified;Diarrhea, unspecified Presentation: 02/14 23:28 Chief complaint: EMS states: Pt called EMS for N/V/D since. Reports vomiting up bile. jb4 Coronavirus screen: Client presents with at least one sign or symptom that may indicate coronavirus-19. Standard/surgical mask placed on the client. Provider contacted for isolation considerations. Ebola Screen: No symptoms or risks identified at this time. Initial Sepsis Screen: Does the patient meet any 2 criteria? No. Patient's initial sepsis screen is negative. Does the patient have a suspected source of infection? No. Patient's initial sepsis screen is negative. Risk Assessment: Do you want to hurt yourself or someone else? Patient reports no desire to harm self or others. Onset of symptoms was February 14, 2022. Transition of care: patient was not received from another setting of care. 23:28 Method Of Arrival: EMS: [facility] jb4 23:28 Acuity: IRIS 3 jb4 Historical: - Allergies: 23:30 PENICILLINS; jb4 - Home Meds: 23:30 None [Active]; jb4 - PMHx: 23:30 Bipolar disorder; Depression; Diabetes - NIDDM; ibs; Pilonidal cyst; jb4 - Immunization history:: Adult Immunizations unknown. - Social history:: Smoking status: unknown. Screenin:31 Abuse screen: Denies threats or abuse. Nutritional screening: No deficits noted. jb4 Tuberculosis screening: No symptoms or risk factors identified. Fall Risk None identified. Assessment: 23:31 General: Appears in no apparent distress. uncomfortable, Behavior is calm, cooperative. jb4 Pain: Complains of pain in abdomen Pain does not radiate. Pain currently is 6 out of 10 on a pain scale. Neuro: Level of Consciousness is awake, alert, obeys commands, Oriented to person, place, time, situation. Cardiovascular: Patient's skin is warm and dry. Respiratory: Airway is patent Respiratory effort is even, unlabored, Respiratory pattern is regular, symmetrical. GI: Abdomen is non-distended, obese, Abdomen is tender to palpation X 4 quads. : No signs and/or symptoms were reported regarding the genitourinary system. EENT: No signs and/or symptoms were reported regarding the EENT system. Derm: Skin is intact, Skin is pink, warm \T\ dry. Musculoskeletal: Circulation, motion, and sensation intact. Range of motion: intact in all extremities. 02/15 00:30 Reassessment: Patient appears in no apparent distress at this time. Patient and/or jb4 family updated on plan of care and expected duration. Pain level reassessed. Patient is alert, oriented x 3, equal unlabored respirations, skin warm/dry/pink. 01:30 Reassessment: Patient appears in no apparent distress at this time. Patient and/or jb4 family updated on plan of care and expected duration. Pain level reassessed. Patient is alert, oriented x 3, equal unlabored respirations, skin warm/dry/pink. 03:00 Reassessment: No changes from previously documented assessment. Patient and/or family vc1 updated on plan of care and expected duration. Pain level reassessed. Patient is alert, oriented x 3, equal unlabored respirations, skin warm/dry/pink. Vital Signs: 02/14 23:28 BP 106 / 50; Pulse 88; Resp 16 S; Temp 97.8(TE); Pulse Ox 98% on R/A; Weight 110.22 kg jb4 (R); Height 5 ft. 6 in. (167.64 cm) (R); 02/15 01:30 BP 114 / 70; Pulse 99; Resp 16; Pulse Ox 99% on R/A; jb4 03:00 BP 93 / 81; Pulse 86; Pulse Ox 100% ; vc1 02/14 23:28 Body Mass Index 39.22 (110.22 kg, 167.64 cm) jb4 ED Course: 02/14 23:28 Patient arrived in ED. jb4 23:29 [facility] kb 23:29 Bossman Mckeon MD is Attending Physician. kb 23:30 Triage completed. jb4 23:30 Arm band placed on right wrist. jb4 23:31 Patient has correct armband on for positive identification. Bed in low position. Call jb4 light in reach. Side rails up X 1. Client placed on continuous cardiac and pulse oximetry monitoring. NIBP monitoring applied. 23:53 Daniel Medrano, RN is Primary Nurse. jb4 23:53 Initial lab(s) drawn, by ca, sent to lab. Inserted saline lock: 18 gauge in right jb4 antecubital area, using aseptic technique. Blood collected. 23:54 CBC with Diff Sent. jb4 23:55 CMP Sent. jb4 23:55 Lipase Sent. jb4 02/15 02:32 CT Abd/Pelvis - IV Contrast Only In Process Unspecified. EDMS 03:35 No provider procedures requiring assistance completed. IV discontinued, intact, vc1 bleeding controlled, No redness/swelling at site. Pressure dressing applied. Administered Medications: 00:00 Drug: NS 0.9% 1000 ml Route: IV; Rate: 1 bolus; Site: right antecubital; jb4 01:00 Follow up: IV Status: Completed infusion; IV Intake: 1000ml vc1 00:00 Drug: Zofran (Ondansetron) 4 mg Route: IVP; Site: right antecubital; jb4 03:37 Follow up: Response: No adverse reaction; Marked relief of symptoms vc1 00:47 Drug: Bentyl (dicyclomine) 20 mg Route: PO; jb4 03:36 Follow up: Response: No adverse reaction; Marked relief of symptoms vc1 Medication: 02/14 23:31 VIS not applicable for this client. jb4 Intake: 02/15 01:00 IV: 1000ml; Total: 1000ml. vc1 Outcome: 03:20 Discharge ordered by . rn 03:35 Discharged to home ambulatory. vc1 03:35 Condition: good 03:35 Discharge instructions given to patient, Instructed on discharge instructions, follow up and referral plans. medication usage, Demonstrated understanding of instructions, follow-up care, medications, Prescriptions given X 1. 03:40 Patient left the ED. vc1 Signatures: Dispatcher [employer] [facility]VA Shonda Sandoval, OPTICAL ELEMENT COATER-C OPTICAL ELEMENT COATER-CkBossman Hutchison MD MD rn Bryson, James, RN TALON jb4 Brigida Alfonso RN RN vc1
--- NOTE | 2022-02-15 03:21 | EDPHYS ---
Physician Documentation [facility] Name: Gisele Arechiga Age: 22 yrs Sex: Female : 2000 Arrival Date: 02/14/2022 Time: 23:28 Bed 8 Private MD: ED Physician Bossman Mckeon HPI: 02/15 00:47 This 22 yrs old Female presents to ER via EMS with complaints of n/v/d. kb 00:47 The patient has not recently seen a physician. kb 00:49 The patient presents to the emergency department with nausea, vomiting, diarrhea. kb Onset: The symptoms/episode began/occurred today, at 15:00. 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 The symptoms are aggravated by nothing. The symptoms are alleviated by nothing. Associated signs and symptoms: Pertinent positives: abdominal pain, diarrhea, nausea, vomiting, Pertinent negatives: fever. Severity of symptoms: At their worst the symptoms were moderate in the emergency department the symptoms are unchanged. The patient has not experienced similar symptoms in the past. Historical: - Allergies: 02/14 23:30 PENICILLINS; jb4 - Home Meds: 23:30 None [Active]; jb4 - PMHx: 23:30 Bipolar disorder; Depression; Diabetes - NIDDM; ibs; Pilonidal cyst; jb4 - Immunization history:: Adult Immunizations unknown. - Social history:: Smoking status: unknown. ROS: 02/15 00:47 Constitutional: Negative for fever, chills, and weight loss. kb Abdomen/GI: Positive for abdominal pain, nausea, vomiting, and diarrhea. All other systems are negative. Exam: 00:47 Constitutional: This is a well developed, well nourished patient who is awake, alert, kb and in no acute distress. Head/Face: Normocephalic, atraumatic. ENT: Moist Mucous membranes Cardiovascular: Regular rate and rhythm with a normal S1 and S2. No gallops, murmurs, or rubs. No pulse deficits. Respiratory: Respirations even and unlabored. No increased work of breathing. Talking in full sentences Skin: Warm, dry with normal turgor. Normal color. MS/ Extremity: Pulses equal, no cyanosis. Neurovascular intact. Full, normal range of motion. Neuro: Awake and alert, GCS 15, oriented to person, place, time, and situation. Moves all extremities. Normal gait. Psych: Awake, alert, with orientation to person, place and time. Behavior, mood, and affect are within normal limits. 00:47 Abdomen/GI: Inspection: abdomen appears normal, Bowel sounds: normal, in all quadrants, Palpation: soft, in all quadrants, mild abdominal tenderness, in all quadrants. Vital Signs: 02/14 23:28 BP 106 / 50; Pulse 88; Resp 16 S; Temp 97.8(TE); Pulse Ox 98% on R/A; Weight 110.22 kg jb4 (R); Height 5 ft. 6 in. (167.64 cm) (R); 02/15 01:30 BP 114 / 70; Pulse 99; Resp 16; Pulse Ox 99% on R/A; jb4 03:00 BP 93 / 81; Pulse 86; Pulse Ox 100% ; vc1 02/14 23:28 Body Mass Index 39.22 (110.22 kg, 167.64 cm) jb4 MDM: 02/14 23:29 Patient medically screened. kb 02/15 00:47 Data reviewed: vital signs, nurses notes. Data interpreted: Pulse oximetry: on room air kb is 98 %. Interpretation: normal. 02/14 23:30 Order name: CBC with Diff; Complete Time: 00:08 kb 02/14 23:30 Order name: CMP; Complete Time: 00:24 kb 02/14 23:30 Order name: Lipase; Complete Time: 00:24 kb 02/15 00:09 Order name: CT Abd/Pelvis - IV Contrast Only kb 02/14 23:30 Order name: IV Saline Lock; Complete Time: 23:54 kb 02/14 23:30 Order name: Labs collected and sent; Complete Time: 23:54 kb Administered Medications: 00:00 Drug: NS 0.9% 1000 ml Route: IV; Rate: 1 bolus; Site: right antecubital; jb4 01:00 Follow up: IV Status: Completed infusion; IV Intake: 1000ml vc1 00:00 Drug: Zofran (Ondansetron) 4 mg Route: IVP; Site: right antecubital; jb4 03:37 Follow up: Response: No adverse reaction; Marked relief of symptoms vc1 00:47 Drug: Bentyl (dicyclomine) 20 mg Route: PO; jb4 03:36 Follow up: Response: No adverse reaction; Marked relief of symptoms vc1 Disposition: 03:20 Co-signature as Attending Physician, Bossman Mckeon MD. rn Disposition Summary: 02/15/22 03:20 Discharge Ordered Location: Home rn Problem: new rn Symptoms: have improved rn Condition: Stable rn Diagnosis - Nausea with vomiting, unspecified rn - Diarrhea, unspecified rn Followup: rn - With: Private Physician - When: As needed - Reason: Recheck today's complaints, Re-evaluation by your physician Discharge Instructions: - Discharge Summary Sheet rn - Diarrhea, Adult rn - Nausea and Vomiting, Adult rn Forms: - Medication Reconciliation Form rn - Thank You Letter rn - Antibiotic international exchange coordinator - Prescription Opioid Use rn - Work release form vc1 Prescriptions: - ondansetron 4 mg Oral tablet,disintegrating - take 1 tablet by ORAL route every 8 hours As needed; 15 tablet; Refills: 0, rn Product Selection Permitted Signatures: Dispatcher [employer] EDOK Shonda Sandoval, WARPER TENDER-C WARPER TENDER-Ckb Bossman Mckeon MD MD rn Bryson, James, RN RN jb4 Brigida Alfonso RN vc1 Corrections: (The following items were deleted from the chart) 00:51 00:09 Urine Dipstick-Ancillary ordered. kb jb4 00:51 00:09 Urine Test ordered. kb jb4
--- NOTE | 2022-02-15 10:45 | RAD REPORT ---
EXAM DESCRIPTION: CT - Abdomen Pelvis W Contrast - 02/15/2022 2:31 am CLINICAL HISTORY: 22 years, Female, abdominl pain COMPARISON: None TECHNIQUE: Contrast-enhanced images of the abdomen and pelvis were performed utilizing 5 mm slice th ickness at 5 mm interval reconstruction from the lung bases to the ischial tuberosities after the adm inistration of IV contrast. In addition multiplanar reformats in the coronal and sagittal plane were obtained and reviewed. This exam was performed according to our departmental dose-optimization protocol, which includes auto mated exposure control, adjustment of the mA and/or kV according to patient size and/or use of iterat deepa reconstruction technique. FINDINGS: The lung bases demonstrate to be clear. The liver demonstrate slight decreased attenuation suggesting mild fatty dictation. , gallbladder, pancreas, spleen and adrenal glands demonstrate to be unremarkable, no focal lesions a re noted. The kidneys demonstrate normal uptake of contrast media. No evidence for nephrolithiasis and/or hydro nephrosis. Grossly the unopacified stomach, small bowel and large bowel demonstrate to be within normal limits. There is no evidence for bowel dilatation/or free air. The appendix is normal. The urinary bladder demonstrate to be unremarkable. The uterus is unremarkable. There are normal bi lateral adnexal structures. The aorta demonstrate to be normal. There is no retroperitoneal lymph adenopathy. There is no evidence for ascites/or significant abnormal fluid collections. The rest of t he soft tissue and bony structures are within normal limits. IMPRESSION: No acute intra-abdominal process. Mild fatty dictation of the liver. Electronically signed by: Chico Escoto MD 02/15/2022 3:11 AM CDT Due to temporary technical issues with the PACS/Fluency reporting system, reports are being signed by the in house radiologists without review as a courtesy to insure prompt reporting. The interpreting radiologist is fully responsible for the content of the report.
[2022-02-16 13:33] VITALS: TEMP 97.8
[2022-02-16 13:40] VITALS: BP 93/81; O2SAT 100
== END 2022-02-15 03:40 | disposition home or self-care (01) ==
LOC: ER 23:18
DX: R11.2 Nausea with vomiting, unspecified (principal); R19.7 Diarrhea, unspecified
CPT/HCPCS: 36415; 74177; 80053; 83690; 85025; 96361; 96374; 99284; Q9967

== ENCOUNTER 2022-03-25 13:36 | Emergency (ER) | payer SELFPAY ==
--- OUTSIDE RECORDS SUMMARY | 2022-03-25 13:43 | XMS REPORT | Continuity of Care Document ---
:2000 Author Organization [facility] t Address [address] [place] [address] Care Team Providers Name Role Phone CHUY ULLOA Primary Care Physician Unavailable PRAKASH ALLAN Attending Clinician Unavailable Prakash Wells Attending Clinician A[place] WHCNPFelipa Attending Clinician [phone] FELIPA BRISENO Attending Clinician Unavailable Danita BROUSSARD, Annabella Almanzar Attending Clinician Lise Garcia RN Attending Clinician Unavailable Jake Jonas MD Attending Clinician Doctor Unassigned, [place] Attending Clinician Unavailable Morena Benton DO Attending [...] nivers exam exam 5-18 ity of 00:00: [address] Obesity Obesity Disease Active Univers (BMI (BMI 5-18 ity of 30-39.9) 30-39.9) 00:00: [place] 00 [facility] Pilonidal Pilonidal Disease Active Uni vers cyst cyst 5-18 ity of 00:00: [place] 00 [facility] No known No known Disease Unive rs active active ity of problems problems [facility] Allergies, Adverse Reactions, Alerts Allergy [...] 9-16 ity of 00:00: [place] 00 Medical [place] Social History Social Habit Start Date Stop Date Quantity Comments Source History of tobacco Cigarette Smoker University of use [facility] Exposure to Not sure University of SARS-CoV-2 (event) [facility] Branch History [facility]ly [facility], 1928–1983 o f Alcohol Frequency [facility] Branch History [facility], 1928–1983 o f Alcohol Std Drinks [facility] History [facility]ly [facility], 1928–1983 o f Alcohol Binge [facility] Alcohol intake 2020-12-31 2020-12-31 Current drinker Unive rsity of 00:00:00 00:00:00 of alcohol [facility] (finding) Branch Cigarettes smoked 2020-10-17 2020-10-17 Univers ity of current (pack per 00:00:00 00:00:00 [facility] ) - Reported Branch Tobacco use and 2020-10-17 2020-10-17 Former user Universi ty of exposure 00:00:00 00:00:00 [facility] Tobacco Comment 2020-10-17 2020-10-17 8-10 cigarettes a Un iversity of 00:00:00 00:00:00 day [facility] Alcohol Comment 2020-10-17 2020-10-17 socially Universit y of 00:00:00 00:00:00 [facility] Sex Assigned At [birth year] Universit y of 00:00:00 00:00:00 [facility] Smoking Status Start Date Stop Date Source Current every day smoker 2020-10-17 00:00:00 Uni versity [facility] Unknown if ever smoked [facility] Medications Ordered Filled Start Stop Current Ordering Indication Dosage Frequency Signature Comments Components Source Medication Medication Date Date Medication? Clinician (SIG) Name Name clindamycin 2021- No 450mg 450 mg, U timothy (CLEOCIN 4-14 04-14 Oral, ity of HCL) 08:00: 06:55 ONCE, 1 [place] capsule 450 00 :00 dose, On Medi walter mg [facility] 09/13/21 at 0300, SHALOM
Re ason for Anti-Infec tive: Documented Infection< br>Documen jill Infection Site: Skin / Soft Tissue
Duration of Therapy: Other (see Comments)< br>Restric jill use approved by: ED PROVIDER<b r>Indicati on for Clindamyci n use: pilonidal cyst allergic to PCN clindamycin 2021- No [id number] 450mg Take 3 Univers 150 mg -14 04-25 capsules ity of capsule 00:00: 04:59 by mouth 3 [place] as 00 :00 (three) Medical times [place] daily for 10 days. norgestimat Yes [id number] 1{tbl} Take 1 Univers e-ethinyl 6-08 tablet by ity o f estradioL 00:00: mouth [place] (ORTHO 00 daily. [facility] 0.18/0.215/ 0.25 mg-35 mcg (28) tablet norgestimat Yes [id number] 1{tbl} Take 1 Univers e-ethinyl 6-08 tablet by ity o f estradioL 00:00: mouth [place] (ORTHO 00 daily. [facility] 0.18/0.215/ 0.25 mg-35 mcg (28) tablet norgestimat Yes [id number] 1{tbl} Take 1 Univers e-ethinyl 6-08 tablet by ity o f estradioL 00:00: mouth [place] [facility] [address] 0.18/0.215/ 0.25 mg-35 mcg (28) tablet norgestimat 2021-0 Yes [id number] 1{tbl} Take 1 Univers e-ethinyl 6-08 tablet by ity o f estradioL 00:00: mouth [place] (ORTHO 00 daily. [place] [address],) 0.18/0.215/ 0.25 mg-35 mcg (28) tablet norgestimat 2021-0 Yes [id number] 1{tbl} Take 1 Univers e-ethinyl 6-08 tablet by ity o f estradioL 00:00: mouth [place] (ORTHO 00 daily. [facility] [address] 0.18/0.215/ 0.25 mg-35 mcg (28) tablet norgestimat 2021-0 Yes [id number] 1{tbl} Take 1 Univers e-ethinyl 6-08 tablet by ity o f estradioL 00:00: mouth [place] ([facility] 00 [facility]. [facility] [address] 0.18/0.215/ 0.25 mg-35 mcg (28) tablet norgestimat 2021-0 Yes [id number] 1{tbl} Take 1 Univers e-ethinyl 6-08 tablet by ity o f estradioL 00:00: mouth [place] (ORTHO 00 daily. [place] [address],) 0.18/0.215/ 0.25 mg-35 mcg (28) tablet medroxyPROG 2021-0 2021- No [id number] 10mg Take 1 Univers ESTERone 5-20 05-31 tablet by ity o f (PROVERA) 00:00: 04:59 mouth [place] 10 mg 00 :00 daily for Medical tablet 10 days. [place] medroxyPROG 2021-0 2021- No [id number] 10mg Take 1 Univers ESTERone 5-20 05-31 tablet by ity o f (PROVERA) 00:00: 04:59 mouth [place] 10 mg 00 :00 daily for Medical tablet 10 days. [place] medroxyPROG 2021-0 1- No [id number] 10mg Take 1 Univers ESTERone 5-20 05-31 tablet by ity o f (PROVERA) 00:00: 04:59 mouth [place] 10 mg 00 :00 daily for Medical tablet 10 days. [place] medroxyPROG 2020-0 2020- No [id number] 10mg Take 1 Univers ESTERone 5-20 05-31 [...] 18:21: mouth [place] 18 every Medical morning. [place] phentermine Yes 37.5mg Take 37.5 Univers 37.5 [...] 18:21: mouth [place] 18 every Medical morning. [place] phentermine Yes 37.5mg Take 37.5 Univers 37.5 mg 5-18 mg by ity of capsule 18:21: mouth [place] 18 every Medical morning. [place] phentermine Yes 37.5mg Take 37.5 Univers 37.5 mg 5-18 mg by ity of capsule 18:21: mouth [place] 18 every Medical morning. [place] phentermine Yes 37.5mg Take 37.5 Univers 37.5 mg 5-18 mg by ity of capsule 18:21: mouth [place] 18 every Medical morning. [place] phentermine Yes 37.5mg Take 37.5 Univers 37.5 mg 5-18 mg by ity of capsule 18:21: mouth [place] 18 every Medical morning. [place] phentermine Yes 37.5mg Take 37.5 Univers 37.5 mg 5-18 mg by ity of capsule 18:21: mouth [place] 18 every Medical morning. [place] phentermine Yes 37.5mg Take 37.5 Univers 37.5 mg 5-18 mg by ity of capsule 18:21: mouth [place] 18 every Medical morning. [place] phentermine Yes 37.5mg Take 37.5 Univers 37.5 mg 5-18 mg by ity of capsule 18:21: mouth [place] 18 every Medical morning. [place] phentermine Yes 37.5mg Take 37.5 Univers 37.5 mg 5-18 mg by ity of capsule 18:21: mouth [place] 18 every Medical morning. [place] phentermine Yes 37.5mg Take 37.5 Univers 37.5 mg 5-18 mg by ity of capsule 13:21: mouth [place] 18 every Medical morning. [place] phentermine Yes 37.5mg Take 37.5 Univers 37.5 mg 5-18 mg by ity of capsule 13:21: mouth [place] 18 every Medical morning. [place] ketorolac 2020- No 30mg 30 mg, Lc rs (TORADOL) 3-10 03-10 Slow IV ity of injection 05:45: 05:42 Push, [place] 30 mg 00 :00 ONCE, 1 Medical dose, [place] 08/08/20 at 2345, SHALOM
[facility] member approving Restricted medication : MORENA BENTON [...] Name HPV9 2020-10-17 Completed University of 00:00:00 [facility] HPV9 2020-10-17 Completed University of 00:00:00 [facility] HPV9 2020-10-17 Completed University of 00:00:00 [facility] HPV9 2020-10-17 Completed University of 00:00:00 [facility] HPV9 2020-10-17 Completed University of 00:00:00 [facility] HPV9 2020-10-17 Completed University of 00:00:00 [facility] HPV9 2020-10-17 Completed University of 00:00:00 [facility] HPV9 2020-10-17 Completed University of 00:00:00 [facility] HPV9 2020-10-17 Completed University of 00:00:00 [facility] HPV9 2020-10-17 Completed University of 00:00:00 [facility] HPV9 2020-10-17 Completed University of 00:00:00 [facility] HPV9 2020-10-17 Completed University of 00:00:00 [place] [facility] HPV9 2020-10-17 Completed University of 00:00:00 [place] [facility] HPV9 2020-10-17 Completed University of 00:00:00 [place] [facility] HPV9 2020-10-17 Completed University of 00:00:00 [place] [facility] HPV9 2020-10-17 Completed University of 00:00:00 [place] [facility] HPV9 2020-10-17 Completed University of 00:00:00 [place] [facility] HPV9 2020-10-17 Completed University of 00:00:00 [place] [facility] HPV9 2020-10-17 Completed University of 00:00:00 [place] [facility] HPV9 2020-10-17 Completed University of 00:00:00 [place] [facility] HPV9 2020-10-17 Completed University of 00:00:00 [facility] HPV 2018-09-15 Completed University of 00:00:00 [facility] Meningococcal 2018-09-15 Completed University of Vaccine 00:00:00 [place] [facility] HPV 2018-09-15 Completed University of 00:00:00 [place] [facility] Meningococcal 2018-09-15 Completed University of Vaccine 00:00:00 [place] [facility] HPV 2018-09-15 Completed University of 00:00:00 [place] [facility] Meningococcal 2018-09-15 Completed University of Vaccine 00:00:00 [place] [facility] HPV 2018-09-15 Completed University of 00:00:00 [place] [facility] Meningococcal 2018-09-15 Completed University of Vaccine 00:00:00 [place] [facility] HPV 2018-09-15 Completed University of 00:00:00 [place] [facility] Meningococcal 2018-09-15 Completed University of Vaccine 00:00:00 [place] [facility] HPV 2018-09-15 Completed University of 00:00:00 [place] [facility] Meningococcal 2018-09-15 Completed University of Vaccine 00:00:00 [place] [facility] HPV 2018-09-15 Completed University of 00:00:00 [place] [facility] Meningococcal 2018-09-15 Completed University of Vaccine 00:00:00 [place] [facility] HPV 2018-09-15 Completed University of 00:00:00 [place] [facility] Meningococcal 2018-09-15 Completed University of Vaccine 00:00:00 [place] [facility] HPV 2018-09-15 Completed University of 00:00:00 [place] [facility] Meningococcal 2018-09-15 Completed University of Vaccine 00:00:00 [facility] HPV 2018-09-15 Completed University of 00:00:00 [facility] Meningococcal 2018-09-15 Completed University of Vaccine 00:00:00 [facility] HPV 2018-09-15 Completed University of 00:00:00 [facility] Meningococcal 2018-09-15 Completed University of Vaccine 00:00:00 [facility] HPV 2018-09-15 Completed University of 00:00:00 [facility] Meningococcal 2018-09-15 Completed University of Vaccine 00:00:00 [facility] HPV 2018-09-15 Completed University of 00:00:00 [facility] Meningococcal 2018-09-15 Completed University of Vaccine 00:00:00 [facility] HPV 2018-09-15 Completed University of 00:00:00 [facility] Meningococcal 2018-09-15 Completed University of Vaccine 00:00:00 [facility] HPV 2018-09-15 Completed University of 00:00:00 [facility] Meningococcal 2018-09-15 Completed University of Vaccine 00:00:00 [facility] HPV 2018-09-15 Completed University of 00:00:00 [facility] Meningococcal 2018-09-15 Completed University of Vaccine 00:00:00 [facility] HPV 2018-09-15 Completed University of 00:00:00 [facility] Meningococcal 2018-09-15 Completed University of Vaccine 00:00:00 [facility] HPV 2018-09-15 Completed University of 00:00:00 [facility] Meningococcal 2018-09-15 Completed University of Vaccine 00:00:00 [facility] HPV 2018-09-15 Completed University of 00:00:00 [facility] Meningococcal 2018-09-15 Completed University of Vaccine 00:00:00 [facility] HPV 2018-09-15 Completed University of 00:00:00 [facility] Meningococcal 2018-09-15 Completed University of Vaccine 00:00:00 [facility] HPV 2018-09-15 Completed University of 00:00:00 [facility] Meningococcal 2018-09-15 Completed University of Vaccine 00:00:00 [facility] HEPATITIS A 2012-01-21 Completed University of 00:00:00 [facility] Meningococcal 2012-01-21 Completed University of Vaccine 00:00:00 [facility] TDAP 2012-01-21 Completed University of 00:00:00 [facility] Varicella 2012-01-21 Completed University of (varivax)(chicken 00:00:00 [place] M edical pox) Branch HEPATITIS A 2012-01-21 Completed University of 00:00:00 [facility] Meningococcal 2012-01-21 Completed University of Vaccine 00:00:00 [facility] TDAP 2012-01-21 Completed University of 00:00:00 [facility] Varicella 2012-01-21 Completed University of (varivax)(chicken 00:00:00 [place] M edical pox) Branch HEPATITIS A 2012-01-21 Completed University of 00:00:00 [facility] Meningococcal 2012-01-21 Completed University of Vaccine 00:00:00 [facility] TDAP 2012-01-21 Completed University of 00:00:00 [facility] Varicella 2012-01-21 Completed University of (varivax)(chicken 00:00:00 [place] M edical pox) Branch HEPATITIS A 2012-01-21 Completed University of 00:00:00 [facility] Meningococcal 2012-01-21 Completed University of Vaccine 00:00:00 [facility] TDAP 2012-01-21 Completed University of 00:00:00 [facility] Varicella 2012-01-21 Completed University of (varivax)(chicken 00:00:00 [place] M edical pox) Branch HEPATITIS A 2012-01-21 Completed University of 00:00:00 [facility] Meningococcal 2012-01-21 Completed University of Vaccine 00:00:00 [facility] TDAP 2012-01-21 Completed University of 00:00:00 [facility] Varicella 2012-01-21 Completed University of (varivax)(chicken 00:00:00 [place] M edical pox) Branch HEPATITIS A 2012-01-21 Completed University of 00:00:00 [facility] Meningococcal 2012-01-21 Completed University of Vaccine 00:00:00 [facility] TDAP 2012-01-21 Completed University of 00:00:00 [facility] Varicella 2012-01-21 Completed University of (varivax)(chicken 00:00:00 [place] M edical pox) Branch HEPATITIS A 2012-01-21 Completed University of 00:00:00 [facility] Meningococcal 2012-01-21 Completed University of Vaccine 00:00:00 [facility] TDAP 2012-01-21 Completed University of 00:00:00 [facility] Varicella 2012-01-21 Completed University of (varivax)(chicken 00:00:00 [place] M edical pox) Branch HEPATITIS A 2012-01-21 Completed University of 00:00:00 [facility] Meningococcal 2012-01-21 Completed University of Vaccine 00:00:00 [facility] TDAP 2012-01-21 Completed University of 00:00:00 [facility] Varicella 2012-01-21 Completed University of (varivax)(chicken 00:00:00 [place] M edical pox) Branch HEPATITIS A 2012-01-21 Completed University of 00:00:00 [facility] Meningococcal 2012-01-21 Completed University of Vaccine 00:00:00 [facility] TDAP 2012-01-21 Completed University of 00:00:00 [facility] Varicella 2012-01-21 Completed University of (varivax)(chicken 00:00:00 [place] M edical pox) Branch HEPATITIS A 2012-01-21 Completed University of 00:00:00 [facility] Meningococcal 2012-01-21 Completed University of Vaccine 00:00:00 [facility] TDAP 2012-01-21 Completed University of 00:00:00 [facility] Varicella 2012-01-21 Completed University of (varivax)(chicken 00:00:00 [place] M edical pox) Branch HEPATITIS A 2012-01-21 Completed University of 00:00:00 [facility] Meningococcal 2012-01-21 Completed University of Vaccine 00:00:00 [facility] TDAP 2012-01-21 Completed University of 00:00:00 [facility] Varicella 2012-01-21 Completed University of (varivax)(chicken 00:00:00 [place] M edical pox) Branch HEPATITIS A 2012-01-21 Completed University of 00:00:00 [facility] Meningococcal 2012-01-21 Completed University of Vaccine 00:00:00 [facility] TDAP 2012-01-21 Completed University of 00:00:00 [facility] Varicella 2012-01-21 Completed University of (varivax)(chicken 00:00:00 [place] M edical pox) Branch HEPATITIS A 2012-01-21 Completed University of 00:00:00 [facility] Meningococcal 2012-01-21 Completed University of Vaccine 00:00:00 [facility] TDAP 2012-01-21 Completed University of 00:00:00 [facility] Varicella 2012-01-21 Completed University of (varivax)(chicken 00:00:00 [place] M edical pox) Branch HEPATITIS A 2012-01-21 Completed University of 00:00:00 [facility] Meningococcal 2012-01-21 Completed University of Vaccine 00:00:00 [facility] TDAP 2012-01-21 Completed University of 00:00:00 [facility] Varicella 2012-01-21 Completed University of (varivax)(chicken 00:00:00 [place] M edical pox) Branch HEPATITIS A 2012-01-21 Completed University of 00:00:00 [facility] Meningococcal 2012-01-21 Completed University of Vaccine 00:00:00 [facility] TDAP 2012-01-21 Completed University of 00:00:00 [facility] Varicella 2012-01-21 Completed University of (varivax)(chicken 00:00:00 [place] M edical pox) Branch HEPATITIS A 2012-01-21 Completed University of 00:00:00 [facility] Meningococcal 2012-01-21 Completed University of Vaccine 00:00:00 [facility] TDAP 2012-01-21 Completed University of 00:00:00 [facility] Varicella 2012-01-21 Completed University of (varivax)(chicken 00:00:00 [place] M edical pox) Branch HEPATITIS A 2012-01-21 Completed University of 00:00:00 [facility] Meningococcal 2012-01-21 Completed University of Vaccine 00:00:00 [facility] TDAP 2012-01-21 Completed University of 00:00:00 [facility] Varicella 2012-01-21 Completed University of (varivax)(chicken 00:00:00 [place] M edical pox) Branch HEPATITIS A 2012-01-21 Completed University of 00:00:00 [facility] Meningococcal 2012-01-21 Completed University of Vaccine 00:00:00 [facility] TDAP 2012-01-21 Completed University of 00:00:00 [facility] Varicella 2012-01-21 Completed University of (varivax)(chicken 00:00:00 [place] M edical pox) Branch HEPATITIS A 2012-01-21 Completed University of 00:00:00 [facility] Meningococcal 2012-01-21 Completed University of Vaccine 00:00:00 [facility] TDAP 2012-01-21 Completed University of 00:00:00 [facility] Varicella 2012-01-21 Completed University of (varivax)(chicken 00:00:00 [place] [facility] edical pox) Branch HEPATITIS A 2012-01-21 Completed University of 00:00:00 [facility] Meningococcal 2012-01-21 Completed University of Vaccine 00:00:00 [facility] TDAP 2012-01-21 Completed University of 00:00:00 [facility] Varicella 2012-01-21 Completed University of (varivax)(chicken 00:00:00 [place] M edical pox) Branch HEPATITIS A 2012-01-21 Completed University of 00:00:00 [facility] Meningococcal 2012-01-21 Completed University of Vaccine 00:00:00 [facility] TDAP 2012-01-21 Completed University of 00:00:00 [facility] Varicella 2012-01-21 Completed University of (varivax)(chicken 00:00:00 [facility] [place] edical pox) Branch MMR 2005-01-08 Completed University of 00:00:00 [facility] MMR 2005-01-08 Completed University of 00:00:00 [facility] MMR 2005-01-08 Completed University of 00:00:00 [facility] MMR 2005-01-08 Completed University of 00:00:00 [facility] MMR 2005-01-08 Completed University of 00:00:00 [facility] MMR 2005-01-08 Completed University of 00:00:00 [facility] MMR 2005-01-08 Completed University of 00:00:00 [facility] MMR 2005-01-08 Completed University of 00:00:00 [facility] MMR 2005-01-08 Completed University of 00:00:00 [facility] MMR 2005-01-08 Completed University of 00:00:00 [facility] MMR 2005-01-08 Completed University of 00:00:00 [facility] MMR 2005-01-08 Completed University of 00:00:00 [facility] MMR 2005-01-08 Completed University of 00:00:00 [facility] MMR 2005-01-08 Completed University of 00:00:00 [facility] MMR 2005-01-08 Completed University of 00:00:00 [facility] MMR 2005-01-08 Completed University of 00:00:00 [facility] MMR 2005-01-08 Completed University of 00:00:00 [facility] MMR 2005-01-08 Completed University of 00:00:00 [facility] MMR 2005-01-08 Completed University of 00:00:00 [facility] MMR 2005-01-08 Completed University of 00:00:00 [facility] MMR 2005-01-08 Completed University of 00:00:00 [facility] DTAP 2004-12-07 Completed University of 00:00:00 [facility] MMR 2004-12-07 Completed University of 00:00:00 [facility] [facility] Pneumococcal 13 2004-12-07 Completed [facility] Conjugate, PCV13 00:00:00 [place] [facility] (Prevnar 13) Branch Polio (IPV/OPV) 2004-12-07 Completed [facility] 00:00:00 [facility] Varicella 2004-12-07 Completed University of (varivax)(chicken 00:00:00 [place] [facility] pox) [facility] DTAP 2004-12-07 Completed [facility] of 00:00:00 [facility] MMR 2004-12-07 Completed [facility] of 00:00:00 [facility] Pneumococcal 13 2004-12-07 Completed [facility]it [facility] of Conjugate, PCV13 00:00:00 [facility] dical (Prevnar 13) Branch Polio (IPV/OPV) 2004-12-07 Completed [facility] of 00:00:00 [facility] Varicella 2004-12-07 Completed [facility] of (varivax)(chicken 00:00:00 [place] [facility] pox) [facility] DTAP 2004-12-07 Completed [facility] of 00:00:00 [facility] MMR 2004-12-07 Completed [facility] of 00:00:00 [facility] Pneumococcal 13 2004-12-07 Completed [facility] of Conjugate, PCV13 00:00:00 [facility] dical (Prevnar 13) Branch Polio (IPV/OPV) 2004-12-07 Completed [facility] 00:00:00 [facility] Varicella 2004-12-07 Completed [facility] of (varivax)(chicken 00:00:00 [place] [facility] pox) [facility] DTAP 2004-12-07 Completed [facility] of 00:00:00 [facility] MMR 2004-12-07 Completed [facility] of 00:00:00 [facility] Pneumococcal 13 2004-12-07 Completed [facility] Conjugate, PCV13 00:00:00 [place] [facility] (Prevnar 13) [facility] Polio (IPV/OPV) 2004-12-07 Completed [facility] 00:00:00 [facility] Varicella 2004-12-07 Completed [facility] of (varivax)(chicken 00:00:00 [place] [facility] pox) Branch DTAP 2004-12-07 Completed [facility] 00:00:00 [facility] MMR 2004-12-07 Completed [facility] 00:00:00 [facility] Pneumococcal 13 2004-12-07 Completed [facility] of Conjugate, PCV13 00:00:00 [facility] dical (Prevnar 13) Branch Polio (IPV/OPV) 2004-12-07 Completed [facility] 00:00:00 [facility] Varicella 2004-12-07 Completed [facility] of (varivax)(chicken 00:00:00 [place] [facility] pox) [facility] DTAP 2004-12-07 Completed [facility] of 00:00:00 [facility] MMR 2004-12-07 Completed [facility] of 00:00:00 [facility] Pneumococcal 13 2004-12-07 Completed [facility] of Conjugate, PCV13 00:00:00 [facility] dical (Prevnar 13) Branch Polio (IPV/OPV) 2004-12-07 Completed [facility] 00:00:00 [facility] Varicella 2004-12-07 Completed [facility] of (varivax)(chicken 00:00:00 [facility] [place] edical pox) Branch DTAP 2004-12-07 Completed [facility] of 00:00:00 [facility] MMR 2004-12-07 Completed [facility] of 00:00:00 [facility] Pneumococcal 13 2004-12-07 Completed [facility]it [facility] of Conjugate, PCV13 00:00:00 [facility] dical (Prevnar 13) Branch Polio (IPV/OPV) 2004-12-07 Completed [facility] of 00:00:00 [facility] Varicella 2004-12-07 Completed [facility] of (varivax)(chicken 00:00:00 [place] [facility] pox) [facility] DTAP 2004-12-07 Completed [facility] of 00:00:00 [facility] MMR 2004-12-07 Completed [facility] of 00:00:00 [facility] Pneumococcal 13 2004-12-07 Completed [facility]it [facility] of Conjugate, PCV13 00:00:00 [facility] dical (Prevnar 13) Branch Polio (IPV/OPV) 2004-12-07 Completed [facility] of 00:00:00 [facility] Varicella 2004-12-07 Completed [facility] of (varivax)(chicken 00:00:00 [place] [facility] pox) Branch DTAP 2004-12-07 Completed [facility] of 00:00:00 [facility] MMR 2004-12-07 Completed [facility] of 00:00:00 [facility] Pneumococcal 13 2004-12-07 Completed [facility] of Conjugate, PCV13 00:00:00 [facility] dical (Prevnar 13) Branch Polio (IPV/OPV) 2004-12-07 Completed [facility] 00:00:00 [facility] Varicella 2004-12-07 Completed [facility] of (varivax)(chicken 00:00:00 [place] [facility] pox) [facility] DTAP 2004-12-07 Completed [facility] of 00:00:00 [facility] MMR 2004-12-07 Completed [facility] of 00:00:00 [facility] Pneumococcal 13 2004-12-07 Completed [facility] of Conjugate, PCV13 00:00:00 [facility] dical (Prevnar 13) Branch Polio (IPV/OPV) 2004-12-07 Completed [facility] of 00:00:00 [facility] Varicella 2004-12-07 Completed [facility] of (varivax)(chicken 00:00:00 [facility] [place] edical pox) Branch DTAP 2004-12-07 Completed [facility] of 00:00:00 [facility] MMR 2004-12-07 Completed [facility] of 00:00:00 [facility] Pneumococcal 13 2004-12-07 Completed [facility]it [facility] of Conjugate, PCV13 00:00:00 [facility] dical (Prevnar 13) Branch Polio (IPV/OPV) 2004-12-07 Completed [facility] 00:00:00 [facility] Varicella 2004-12-07 Completed [facility] of (varivax)(chicken 00:00:00 [place] [facility] pox) Branch DTAP 2004-12-07 Completed [facility] of 00:00:00 [facility] MMR 2004-12-07 Completed [facility] of 00:00:00 [facility] Pneumococcal 13 2004-12-07 Completed [facility]it [facility] of Conjugate, PCV13 00:00:00 [facility] dical (Prevnar 13) Branch Polio (IPV/OPV) 2004-12-07 Completed [facility] of 00:00:00 [facility] Varicella 2004-12-07 Completed [facility] of (varivax)(chicken 00:00:00 [place] [facility] pox) Branch DTAP 2004-12-07 Completed [facility] of 00:00:00 [facility] MMR 2004-12-07 Completed [facility] of 00:00:00 [facility] Pneumococcal 13 2004-12-07 Completed [facility] of Conjugate, PCV13 00:00:00 [facility] dical (Prevnar 13) Branch Polio (IPV/OPV) 2004-12-07 Completed [facility] of 00:00:00 [facility] Varicella 2004-12-07 Completed [facility] of (varivax)(chicken 00:00:00 [place] [facility] pox) Branch DTAP 2004-12-07 Completed [facility] of 00:00:00 [facility] MMR 2004-12-07 Completed [facility] of 00:00:00 [facility] Pneumococcal 13 2004-12-07 Completed [facility]it [facility] of Conjugate, PCV13 00:00:00 [facility] dical (Prevnar 13) Branch Polio (IPV/OPV) 2004-12-07 Completed [facility] of 00:00:00 [facility] Varicella 2004-12-07 Completed [facility] of (varivax)(chicken 00:00:00 [place] [facility] pox) Branch DTAP 2004-12-07 Completed [facility] of 00:00:00 [facility] MMR 2004-12-07 Completed [facility] of 00:00:00 [facility] Pneumococcal 13 2004-12-07 Completed [facility] of Conjugate, PCV13 00:00:00 [facility] dical (Prevnar 13) Branch Polio (IPV/OPV) 2004-12-07 Completed [facility] of 00:00:00 [facility] Varicella 2004-12-07 Completed [facility] of (varivax)(chicken 00:00:00 [place] [facility] pox) Branch DTAP 2004-12-07 Completed [facility] of 00:00:00 [facility] MMR 2004-12-07 Completed [facility] of 00:00:00 [facility] Pneumococcal 13 2004-12-07 Completed [facility] of Conjugate, PCV13 00:00:00 [facility] dical (Prevnar 13) Branch Polio (IPV/OPV) 2004-12-07 Completed [facility] of 00:00:00 [facility] Varicella 2004-12-07 Completed [facility] of (varivax)(chicken 00:00:00 [place] [facility] pox) Branch DTAP 2004-12-07 Completed [facility] of 00:00:00 [facility] MMR 2004-12-07 Completed [facility] of 00:00:00 [facility] Pneumococcal 13 2004-12-07 Completed [facility] of Conjugate, PCV13 00:00:00 [place] [facility] (Prevnar 13) Branch Polio (IPV/OPV) 2004-12-07 Completed [facility] 00:00:00 [facility] Varicella 2004-12-07 Completed [facility] of (varivax)(chicken 00:00:00 [place] [facility] pox) Branch DTAP 2004-12-07 Completed [facility] of 00:00:00 [facility] MMR 2004-12-07 Completed [facility] of 00:00:00 [facility] Pneumococcal 13 2004-12-07 Completed [facility] of Conjugate, PCV13 00:00:00 [facility] dical (Prevnar 13) Branch Polio (IPV/OPV) 2004-12-07 Completed [facility] of 00:00:00 [facility] Varicella 2004-12-07 Completed [facility] of (varivax)(chicken 00:00:00 [place] [facility] pox) Branch DTAP 2004-12-07 Completed [facility] of 00:00:00 [facility] MMR 2004-12-07 Completed [facility] of 00:00:00 [facility] Pneumococcal 13 2004-12-07 Completed [facility]it [facility] of Conjugate, PCV13 00:00:00 [facility] dical (Prevnar 13) Branch Polio (IPV/OPV) 2004-12-07 Completed [facility] of 00:00:00 [facility] Varicella 2004-12-07 Completed [facility] of (varivax)(chicken 00:00:00 [place] [facility] pox) Branch DTAP 2004-12-07 Completed [facility] of 00:00:00 [facility] MMR 2004-12-07 Completed [facility] of 00:00:00 [facility] Pneumococcal 13 2004-12-07 Completed [facility] of Conjugate, PCV13 00:00:00 [facility] dical (Prevnar 13) Branch Polio (IPV/OPV) 2004-12-07 Completed [facility] of 00:00:00 [facility] Varicella 2004-12-07 Completed [facility] of (varivax)(chicken 00:00:00 [place] [facility] pox) Branch DTAP 2004-12-07 Completed [facility] of 00:00:00 [facility] MMR 2004-12-07 Completed [facility] of 00:00:00 [facility] Pneumococcal 13 2004-12-07 Completed [facility] of Conjugate, PCV13 00:00:00 [facility] dical (Prevnar 13) Branch Polio (IPV/OPV) 2004-12-07 Completed [facility] of 00:00:00 [facility] Varicella 2004-12-07 Completed [facility] of (varivax)(chicken 00:00:00 [place] [facility] pox) [facility] DTAP 2001-03-04 Completed [facility] of 00:00:00 [facility] HIB 3 Dose Schedule 2001-03-04 Completed Unive rsity of 00:00:00 [facility] Hep B, Adol or Pedi 2001-03-04 Completed Unive rsity of Dosage 00:00:00 [facility] Polio (IPV/OPV) 2001-03-04 Completed [facility] 00:00:00 [facility] DTAP 2001-03-04 Completed [facility] of 00:00:00 [facility] HIB 3 Dose Schedule 2001-03-04 Completed Unive rsity of 00:00:00 [facility] Hep B, Adol or Pedi 2001-03-04 Completed Unive rsity of Dosage 00:00:00 [facility] Polio (IPV/OPV) 2001-03-04 Completed [facility] of 00:00:00 [facility] DTAP 2001-03-04 Completed University of 00:00:00 [facility] HIB 3 Dose Schedule 2001-03-04 Completed Unive rsity of 00:00:00 [facility] Hep B, Adol or Pedi 2001-03-04 Completed Unive rsity of Dosage 00:00:00 [facility] Polio (IPV/OPV) 2001-03-04 Completed [facility] 00:00:00 [facility] DTAP 2001-03-04 Completed [facility] of 00:00:00 [facility] HIB 3 Dose Schedule 2001-03-04 Completed Unive rsity of 00:00:00 [facility] Hep B, Adol or Pedi 2001-03-04 Completed Unive rsity of Dosage 00:00:00 [facility] Polio (IPV/OPV) 2001-03-04 Completed [facility] of 00:00:00 [facility] DTAP 2001-03-04 Completed University of 00:00:00 [facility] HIB 3 Dose Schedule 2001-03-04 Completed Unive rsity of 00:00:00 [facility] Hep B, Adol or Pedi 2001-03-04 Completed Unive rsity of Dosage 00:00:00 [facility] Polio (IPV/OPV) 2001-03-04 Completed [facility] 00:00:00 [facility] DTAP 2001-03-04 Completed [facility] of 00:00:00 [facility] HIB 3 Dose Schedule 2001-03-04 Completed Unive rsity of 00:00:00 [facility] Hep B, Adol or Pedi 2001-03-04 Completed Unive rsity of Dosage 00:00:00 [facility] Polio (IPV/OPV) 2001-03-04 Completed [facility] 00:00:00 [facility] DTAP 2001-03-04 Completed [facility] of 00:00:00 [facility] HIB 3 Dose Schedule 2001-03-04 Completed Unive rsity of 00:00:00 [facility] Hep B, Adol or Pedi 2001-03-04 Completed Unive rsity of Dosage 00:00:00 [facility] Polio (IPV/OPV) 2001-03-04 Completed [facility] of 00:00:00 [facility] DTAP 2001-03-04 Completed [facility] of 00:00:00 [facility] HIB 3 Dose Schedule 2001-03-04 Completed Unive rsity of 00:00:00 [facility] Hep B, Adol or Pedi 2001-03-04 Completed Unive rsity of Dosage 00:00:00 [facility] Polio (IPV/OPV) 2001-03-04 Completed [facility] of 00:00:00 [facility] DTAP 2001-03-04 Completed [facility] of 00:00:00 [facility] HIB 3 Dose Schedule 2001-03-04 Completed Unive rsity of 00:00:00 [place] [facility] Hep B, Adol or Pedi 2001-03-04 Completed Unive rsity of Dosage 00:00:00 [facility] Polio (IPV/OPV) 2001-03-04 Completed [facility] 00:00:00 [facility] DTAP 2001-03-04 Completed [facility] of 00:00:00 [facility] HIB 3 Dose Schedule 2001-03-04 Completed Unive rsity of 00:00:00 [facility] Hep B, Adol or Pedi 2001-03-04 Completed Unive rsity of Dosage 00:00:00 [facility] Polio (IPV/OPV) 2001-03-04 Completed [facility] 00:00:00 [facility] DTAP 2001-03-04 Completed [facility] 00:00:00 [facility] HIB 3 Dose Schedule 2001-03-04 Completed Unive rsity of 00:00:00 [place] [facility] Hep B, Adol or Pedi 2001-03-04 Completed Unive rsity of Dosage 00:00:00 [facility] Polio (IPV/OPV) 2001-03-04 Completed [facility] of 00:00:00 [place] [facility] DTAP 2001-03-04 Completed [facility] 00:00:00 [facility] HIB 3 Dose Schedule 2001-03-04 Completed Unive rsity of 00:00:00 [place] [facility] Hep B, Adol or Pedi 2001-03-04 Completed Unive rsity of Dosage 00:00:00 [facility] Polio (IPV/OPV) 2001-03-04 Completed [facility] 00:00:00 [facility] DTAP 2001-03-04 Completed [facility] 00:00:00 [facility] HIB 3 Dose Schedule 2001-03-04 Completed Unive rsity of 00:00:00 [place] [facility] Hep B, Adol or Pedi 2001-03-04 Completed Unive rsity of Dosage 00:00:00 [facility] Polio (IPV/OPV) 2001-03-04 Completed [facility] 00:00:00 [facility] DTAP 2001-03-04 Completed [facility] 00:00:00 [facility] HIB 3 Dose Schedule 2001-03-04 Completed Unive rsity of 00:00:00 [place] [facility] Hep B, Adol or Pedi 2001-03-04 Completed Unive rsity of Dosage 00:00:00 [facility] Polio (IPV/OPV) 2001-03-04 Completed [facility] 00:00:00 [place] [facility] DTAP 2001-03-04 Completed [facility] 00:00:00 [facility] HIB 3 Dose Schedule 2001-03-04 Completed Unive rsity of 00:00:00 [place] [facility] Hep B, Adol or Pedi 2001-03-04 Completed Unive rsity of Dosage 00:00:00 [facility] Polio (IPV/OPV) 2001-03-04 Completed [facility] 00:00:00 [place] [facility] DTAP 2001-03-04 Completed [facility] 00:00:00 [facility] HIB 3 Dose Schedule 2001-03-04 Completed Unive rsity of 00:00:00 [place] [facility] Hep B, Adol or Pedi 2001-03-04 Completed Unive rsity of Dosage 00:00:00 [facility] Polio (IPV/OPV) 2001-03-04 Completed [facility] 00:00:00 [facility] DTAP 2001-03-04 Completed [facility] 00:00:00 [facility] HIB 3 Dose Schedule 2001-03-04 Completed Unive rsity of 00:00:00 [place] [facility] Hep B, Adol or Pedi 2001-03-04 Completed Unive rsity of Dosage 00:00:00 [facility] Polio (IPV/OPV) 2001-03-04 Completed [facility] 00:00:00 [facility] DTAP 2001-03-04 Completed [facility] of 00:00:00 [facility] HIB 3 Dose Schedule 2001-03-04 Completed Unive rsity of 00:00:00 [facility] Hep B, Adol or Pedi 2001-03-04 Completed Unive rsity of Dosage 00:00:00 [facility] Polio (IPV/OPV) 2001-03-04 Completed [facility] 00:00:00 [facility] DTAP 2001-03-04 Completed [facility] 00:00:00 [facility] HIB 3 Dose Schedule 2001-03-04 Completed Unive rsity of 00:00:00 [facility] Hep B, Adol or Pedi 2001-03-04 Completed Unive rsity of Dosage 00:00:00 [facility] Polio (IPV/OPV) 2001-03-04 Completed [facility] 00:00:00 [place] [facility] DTAP 2001-03-04 Completed [facility] 00:00:00 [facility] HIB 3 Dose Schedule 2001-03-04 Completed Unive rsity of 00:00:00 [facility] Hep B, Adol or Pedi 2001-03-04 Completed Unive rsity of Dosage 00:00:00 [facility] Polio (IPV/OPV) 2001-03-04 Completed [facility] 00:00:00 [facility] DTAP 2001-03-04 Completed [facility] 00:00:00 [facility] HIB 3 Dose Schedule 2001-03-04 Completed Unive rsity of 00:00:00 [place] [facility] Hep B, Adol or Pedi 2001-03-04 Completed Unive rsity of Dosage 00:00:00 [facility] Polio (IPV/OPV) 2001-03-04 Completed [facility] 00:00:00 [facility] DTAP 2000-03-05 Completed [facility] of 00:00:00 [facility] HIB 3 Dose Schedule 2000-03-05 Completed Unive rsity of 00:00:00 [facility] Hep B, Adol or Pedi 2000-03-05 Completed Unive rsity of Dosage 00:00:00 [facility] Polio (IPV/OPV) 2000-03-05 Completed [facility] 00:00:00 [facility] DTAP 2000-03-05 Completed [facility] 00:00:00 [facility] HIB 3 Dose Schedule 2000-03-05 Completed Unive rsity of 00:00:00 [facility] Hep B, Adol or Pedi 2000-03-05 Completed Unive rsity of Dosage 00:00:00 [facility] Polio (IPV/OPV) 2000-03-05 Completed [facility] 00:00:00 [facility] DTAP 2000-03-05 Completed [facility] 00:00:00 [facility] HIB 3 Dose Schedule 2000-03-05 Completed Unive rsity of 00:00:00 [facility] Hep B, Adol or Pedi 2000-03-05 Completed Unive rsity of Dosage 00:00:00 [facility] Polio (IPV/OPV) 2000-03-05 Completed [facility] 00:00:00 [facility] DTAP 2000-03-05 Completed [facility] of 00:00:00 [facility] HIB 3 Dose Schedule 2000-03-05 Completed [facility] rsity of 00:00:00 [facility] Hep B, Adol or Pedi 2000-03-05 Completed Unive rsity of Dosage 00:00:00 [facility] Polio (IPV/OPV) 2000-03-05 Completed [facility] 00:00:00 [facility] DTAP 2000-03-05 Completed [facility] of 00:00:00 [facility] HIB 3 Dose Schedule 2000-03-05 Completed [facility]ive rsity of 00:00:00 [facility] Hep B, Adol or Pedi 2000-03-05 Completed [facility]ive rsity of Dosage 00:00:00 [facility] Polio (IPV/OPV) 2000-03-05 Completed [facility] 00:00:00 [facility] DTAP 2000-03-05 Completed [facility] 00:00:00 [facility] HIB 3 Dose Schedule 2000-03-05 Completed [facility]ive rsity of 00:00:00 [facility] Hep B, Adol or Pedi 2000-03-05 Completed [facility]ive rsity of Dosage 00:00:00 [facility] Polio (IPV/OPV) 2000-03-05 Completed [facility] 00:00:00 [facility] DTAP 2000-03-05 Completed [facility] 00:00:00 [facility] HIB 3 Dose Schedule 2000-03-05 Completed [facility] rsity of 00:00:00 [facility] Hep B, Adol or Pedi 2000-03-05 Completed [facility]ive rsity of Dosage 00:00:00 [facility] Polio (IPV/OPV) 2000-03-05 Completed [facility] 00:00:00 [facility] DTAP 2000-03-05 Completed [facility] 00:00:00 [facility] HIB 3 Dose Schedule 2000-03-05 Completed [facility] rs[facility] of 00:00:00 [facility] Hep B, Adol or Pedi 2000-03-05 Completed [facility] rs[facility] of Dosage 00:00:00 [facility] Polio (IPV/OPV) 2000-03-05 Completed [facility] 00:00:00 [facility] DTAP 2000-03-05 Completed [facility] 00:00:00 [facility] HIB 3 Dose Schedule 2000-03-05 Completed [facility] rs[facility] of 00:00:00 [facility] Hep B, Adol or Pedi 2000-03-05 Completed [facility]ive rs[facility] of Dosage 00:00:00 [facility] Polio (IPV/OPV) 2000-03-05 Completed [facility] 00:00:00 [facility] DTAP 2000-03-05 Completed [facility] 00:00:00 [facility] [facility] HIB 3 Dose Schedule 2000-03-05 Completed Unive rsity of 00:00:00 [facility] Hep B, Adol or Pedi 2000-03-05 Completed Unive rsity of Dosage 00:00:00 [facility] Polio (IPV/OPV) 2000-03-05 Completed Universit y of 00:00:00 [facility] DTAP 2000-03-05 Completed University of 00:00:00 [facility] HIB 3 Dose Schedule 2000-03-05 Completed Unive rsity of 00:00:00 [facility] Hep B, Adol or Pedi 2000-03-05 Completed Unive rsity of Dosage 00:00:00 [facility] Polio (IPV/OPV) 2000-03-05 Completed Universit y of 00:00:00 [facility] DTAP 2000-03-05 Completed University of 00:00:00 [facility] HIB 3 Dose Schedule 2000-03-05 Completed Unive rsity of 00:00:00 [facility] Hep B, Adol or Pedi 2000-03-05 Completed Unive rsity of Dosage 00:00:00 [facility] Polio (IPV/OPV) 2000-03-05 Completed Universit y of 00:00:00 [facility] DTAP 2000-03-05 Completed University of 00:00:00 [facility] HIB 3 Dose Schedule 2000-03-05 Completed Unive rsity of 00:00:00 [facility] Hep B, Adol or Pedi 2000-03-05 Completed Unive rsity of Dosage 00:00:00 [facility] Polio (IPV/OPV) 2000-03-05 Completed Universit y of 00:00:00 [facility] DTAP 2000-03-05 Completed University of 00:00:00 [facility] HIB 3 Dose Schedule 2000-03-05 Completed Unive rsity of 00:00:00 [facility] Hep B, Adol or Pedi 2000-03-05 Completed Unive rsity of Dosage 00:00:00 [facility] Polio (IPV/OPV) 2000-03-05 Completed Universit y of 00:00:00 [facility] DTAP 2000-03-05 Completed University of 00:00:00 [facility] HIB 3 Dose Schedule 2000-03-05 Completed Unive rsity of 00:00:00 [facility] Hep B, Adol or Pedi 2000-03-05 Completed Unive rsity of Dosage 00:00:00 [facility] Polio (IPV/OPV) 2000-03-05 Completed Universit y of 00:00:00 [facility] DTAP 2000-03-05 Completed University of 00:00:00 [facility] HIB 3 Dose Schedule 2000-03-05 Completed Unive rsity of 00:00:00 [facility] Hep B, Adol or Pedi 2000-03-05 Completed Unive rsity of Dosage 00:00:00 [facility] Polio (IPV/OPV) 2000-03-05 Completed Universit y of 00:00:00 [facility] DTAP 2000-03-05 Completed University of 00:00:00 [facility] HIB 3 Dose Schedule 2000-03-05 Completed Unive rsity of 00:00:00 [facility] Hep B, Adol or Pedi 2000-03-05 Completed Unive rsity of Dosage 00:00:00 [facility] Polio (IPV/OPV) 2000-03-05 Completed Universit y of 00:00:00 [facility] DTAP 2000-03-05 Completed University of 00:00:00 [facility] HIB 3 Dose Schedule 2000-03-05 Completed Unive rsity of 00:00:00 [facility] Hep B, Adol or Pedi 2000-03-05 Completed Unive rsity of Dosage 00:00:00 [facility] Polio (IPV/OPV) 2000-03-05 Completed Universit y of 00:00:00 [facility] DTAP 2000-03-05 Completed University of 00:00:00 [facility] HIB 3 Dose Schedule 2000-03-05 Completed Unive rsity of 00:00:00 [facility] Hep B, Adol or Pedi 2000-03-05 Completed Unive rsity of Dosage 00:00:00 [facility] Polio (IPV/OPV) 2000-03-05 Completed Universit y of 00:00:00 [facility] DTAP 2000-03-05 Completed University of 00:00:00 [facility] HIB 3 Dose Schedule 2000-03-05 Completed [facility]ive rsity of 00:00:00 [facility] Hep B, Adol or Pedi 2000-03-05 Completed Unive rsity of Dosage 00:00:00 [facility] Polio (IPV/OPV) 2000-03-05 Completed Universit y of 00:00:00 [facility] DTAP 2000-03-05 Completed University of 00:00:00 [facility] HIB 3 Dose Schedule 2000-03-05 Completed Unive rsity of 00:00:00 [facility] Hep B, Adol or Pedi 2000-03-05 Completed Unive rsity of Dosage 00:00:00 [facility] Polio (IPV/OPV) 2000-03-05 Completed Universit y of 00:00:00 [facility] DTAP 1999 Completed University of 00:00:00 [facility] HIB 3 Dose Schedule 1999 Completed [facility]ive rsity of 00:00:00 [facility] Hep B, Adol or Pedi 1999 Completed Unive rsity of Dosage 00:00:00 [facility] Polio (IPV/OPV) 1999 Completed Universit y of 00:00:00 [facility] DTAP 1999 Completed University of 00:00:00 [facility] HIB 3 Dose Schedule 1999 Completed Unive rsity of 00:00:00 [facility] Hep B, Adol or Pedi 1999 Completed Unive rsity of Dosage 00:00:00 [facility] Polio (IPV/OPV) 1999 Completed Universit y of 00:00:00 [facility] DTAP 1999 Completed University of 00:00:00 [facility] HIB 3 Dose Schedule 1999 Completed Unive rsity of 00:00:00 [facility] Hep B, Adol or Pedi 1999 Completed Unive rsity of Dosage 00:00:00 [facility] Polio (IPV/OPV) 1999 Completed Universit y of 00:00:00 [facility] DTAP 1999 Completed University of 00:00:00 [facility] HIB 3 Dose Schedule 1999 Completed [facility]ive rsity of 00:00:00 [facility] Hep B, Adol or Pedi 1999 Completed Unive rsity of Dosage 00:00:00 [facility] Polio (IPV/OPV) 1999 Completed Universit y of 00:00:00 [facility] DTAP 1999 Completed University of 00:00:00 [facility] HIB 3 Dose Schedule 1999 Completed Unive rsity of 00:00:00 [facility] Hep B, Adol or Pedi 1999 Completed Unive rsity of Dosage 00:00:00 [facility] Polio (IPV/OPV) 1999 Completed Universit y of 00:00:00 [facility] DTAP 1999 Completed University of 00:00:00 [facility] HIB 3 Dose Schedule 1999 Completed Unive rsity of 00:00:00 [facility] Hep B, Adol or Pedi 1999 Completed Unive rsity of Dosage 00:00:00 [facility] Polio (IPV/OPV) 1999 Completed Universit y of 00:00:00 [facility] DTAP 1999 Completed University of 00:00:00 [facility] HIB 3 Dose Schedule 1999 Completed Unive rsity of 00:00:00 [facility] Hep B, Adol or Pedi 1999 Completed Unive rsity of Dosage 00:00:00 [facility] Polio (IPV/OPV) 1999 Completed Universit y of 00:00:00 [facility] DTAP 1999 Completed University of 00:00:00 [facility] HIB 3 Dose Schedule 1999 Completed Unive rsity of 00:00:00 [facility] Hep B, Adol or Pedi 1999 Completed Unive rsity of Dosage 00:00:00 [facility] Polio (IPV/OPV) 1999 Completed Universit y of 00:00:00 [facility] DTAP 1999 Completed University of 00:00:00 [facility] HIB 3 Dose Schedule 1999 Completed Unive rsity of 00:00:00 [facility] Hep B, Adol or Pedi 1999 Completed Unive rsity of Dosage 00:00:00 [facility] Polio (IPV/OPV) 1999 Completed Universit y of 00:00:00 [facility] DTAP 1999 Completed University of 00:00:00 [facility] HIB 3 Dose Schedule 1999 Completed Unive rsity of 00:00:00 [facility] Hep B, Adol or Pedi 1999 Completed Unive rsity of Dosage 00:00:00 [facility] Polio (IPV/OPV) 1999 Completed Universit y of 00:00:00 [facility] DTAP 1999 Completed University of 00:00:00 [facility] HIB 3 Dose Schedule 1999 Completed Unive rsity of 00:00:00 [facility] Hep B, Adol or Pedi 1999 Completed Unive rsity of Dosage 00:00:00 [facility] Polio (IPV/OPV) 1999 Completed Universit y of 00:00:00 [facility] DTAP 1999 Completed University of 00:00:00 [facility] HIB 3 Dose Schedule 1999 Completed Unive rsity of 00:00:00 [facility] Hep B, Adol or Pedi 1999 Completed Unive rsity of Dosage 00:00:00 [facility] Polio (IPV/OPV) 1999 Completed Universit y of 00:00:00 [facility] DTAP 1999 Completed University of 00:00:00 [facility] HIB 3 Dose Schedule 1999 Completed Unive rsity of 00:00:00 [facility] Hep B, Adol or Pedi 1999 Completed Unive rsity of Dosage 00:00:00 [facility] Polio (IPV/OPV) 1999 Completed Universit [facility] of 00:00:00 [facility] DTAP 1999 Completed University of 00:00:00 [facility] HIB 3 Dose Schedule 1999 Completed [facility]ive rsity of 00:00:00 [facility] Hep B, Adol or Pedi 1999 Completed Unive rsity of Dosage 00:00:00 [facility] Polio (IPV/OPV) 1999 Completed Universit [facility] of 00:00:00 [facility] DTAP 1999 Completed University of 00:00:00 [facility] HIB 3 Dose Schedule 1999 Completed Unive rsity of 00:00:00 [facility] Hep B, Adol or Pedi 1999 Completed Unive rsity of Dosage 00:00:00 [facility] Polio (IPV/OPV) 1999 Completed Universit [facility] 00:00:00 [facility] DTAP 1999 Completed University of 00:00:00 [facility] HIB 3 Dose Schedule 1999 Completed [facility]ive rsity of 00:00:00 [facility] Hep B, Adol or Pedi 1999 Completed Unive rsity of Dosage 00:00:00 [facility] Polio (IPV/OPV) 1999 Completed Universit y of 00:00:00 [facility] DTAP 1999 Completed University of 00:00:00 [facility] HIB 3 Dose Schedule 1999 Completed [facility]ive rsity of 00:00:00 [facility] Hep B, Adol or Pedi 1999 Completed Unive rsity of Dosage 00:00:00 [facility] Polio (IPV/OPV) 1999 Completed Universit [facility] of 00:00:00 [facility] DTAP 1999 Completed University of 00:00:00 [facility] HIB 3 Dose Schedule 1999 Completed Unive rsity of 00:00:00 [facility] Hep B, Adol or Pedi 1999 Completed Unive rsity of Dosage 00:00:00 [facility] Polio (IPV/OPV) 1999 Completed Universit [facility] of 00:00:00 [facility] DTAP 1999 Completed University of 00:00:00 [facility] HIB 3 Dose Schedule 1999 Completed [facility]ive rsity of 00:00:00 [facility] Hep B, Adol or Pedi 1999 Completed Unive rsity of Dosage 00:00:00 [facility] Polio (IPV/OPV) 1999 Completed [facility] 00:00:00 [facility] DTAP 1999 Completed University of 00:00:00 [facility] HIB 3 Dose Schedule 1999 Completed Unive rsity of 00:00:00 [facility] Hep B, Adol or Pedi 1999 Completed Unive rsity of Dosage 00:00:00 [facility] Polio (IPV/OPV) 1999 Completed Universit [facility] of 00:00:00 [facility] DTAP 1999 Completed University of 00:00:00 [facility] HIB 3 Dose Schedule 1999 Completed Unive rsity of 00:00:00 [facility] Hep B, Adol or Pedi 1999 Completed Unive rsity of Dosage 00:00:00 [facility] Polio (IPV/OPV) 1999 Completed Universit y of 00:00:00 [facility] Vital Signs Vital Name Observation Time Observation Value Comments Source Systolic blood 2021-09-13 07:00:00 121 mm[Hg] Univer sity of pressure [facility] Diastolic blood 2021-09-13 07:00:00 84 mm[Hg] Unive rsity of pressure [facility] Heart rate 2021-09-13 07:00:00 98 /min [facility] Respiratory rate 2021-09-13 07:00:00 20 /min Univ ersity of [facility] Oxygen saturation in 2021-09-13 07:00:00 98 /min University of Arterial blood by [place] [employer] [facility]xim[facility] Body temperature 2021-09-13 05:34:00 37.61 Radha [facility] Body height 2021-09-13 05:34:00 162.6 cm [facility] Body weight 2021-09-13 05:34:00 111.131 kg [facility] BMI 2021-09-13 05:34:00 42.05 kg/m2 [facility] Systolic blood 2020-12-31 20:48:00 127 mm[Hg] Univer sity of pressure [facility] Diastolic blood 2020-12-31 20:48:00 96 mm[Hg] Unive rsity of pressure [facility] Heart rate 2020-12-31 20:48:00 83 /min [facility] Body temperature 2020-12-31 20:48:00 36.83 Radha [facility] Respiratory rate 2020-12-31 20:48:00 18 /min [facility] Body weight 2020-12-31 20:48:00 110.678 kg [facility] BMI 2020-12-31 20:48:00 41.88 kg/m2 [facility] Oxygen saturation in 2020-12-31 20:48:00 100 /min University of Arterial blood by [employer] walter [facility] Systolic blood 2020-11-07 14:46:00 126 mm[Hg] Univer sity of pressure [facility] Diastolic blood 2020-11-07 14:46:00 76 mm[Hg] Unive rsity of pressure [facility] Heart rate 2020-11-07 14:46:00 92 /min [facility] Body temperature 2020-11-07 14:46:00 37 Radha [facility] Respiratory rate 2020-11-07 14:46:00 24 /min [facility] Body height 2020-11-07 14:46:00 162.6 cm [facility] Body weight 2020-11-07 14:46:00 113.581 kg [facility] BMI 2020-11-07 14:46:00 42.98 kg/m2 [facility] Systolic blood 2020-10-17 18:10:00 119 mm[Hg] Univer sity of pressure [facility] Diastolic blood 2020-10-17 18:10:00 72 mm[Hg] Unive rsity of pressure [facility] Heart rate 2020-10-17 18:10:00 99 /min [facility] Body temperature 2020-10-17 18:10:00 36.89 Radha [facility] Respiratory rate 2020-10-17 18:10:00 16 /min [facility] Body height 2020-10-17 18:10:00 162.6 [...] 2020-08-09 06:00:00 18 /min [facility] Oxygen saturation in 2020-08-09 06:00:00 92 /min University of Arterial blood by [facility] Pulse oximetry Branch Body temperature 2020-08-09 05:00:00 37.44 Radha Univ ersity of [facility] Body height 2020-08-09 05:00:00 162.6 cm Universi ty of [facility] Body weight 2020-08-09 05:00:00 114.306 kg Universi ty of [facility] BMI 2020-08-09 05:00:00 43.26 kg/m2 [facility] of [facility] Systolic blood 2020-01-08 07:00:00 137 mm[Hg] Univer sity of pressure [facility] Diastolic blood 2020-01-08 07:00:00 82 mm[Hg] Unive rsity of pressure [facility] Heart rate 2020-01-08 07:00:00 80 /min Universi ty of [facility] Body temperature 2020-01-08 07:00:00 36.89 Radha Univ [facility] Respiratory rate 2020-01-08 07:00:00 11 /min Univ ersity of [facility] Oxygen saturation in 2020-01-08 07:00:00 95 /min University of Arterial blood by [facility] Pulse oxim[facility] Branch Body weight 2020-01-08 05:39:00 108.863 kg Universi ty of [facility] Systolic blood 2020-01-08 07:00:00 137 mm[Hg] Univer sity of pressure [facility] Diastolic blood 2020-01-08 07:00:00 82 mm[Hg] Unive rsity of pressure [facility] Heart rate 2020-01-08 07:00:00 80 /min Universi ty of [facility] Body temperature 2020-01-08 07:00:00 36.89 Radha Univ [facility] Respiratory rate 2020-01-08 07:00:00 11 /min Univ ersity of [facility] Oxygen saturation in 2020-01-08 07:00:00 95 /min University of Arterial blood by [facility] Pulse oximetry Branch Body weight 2020-01-08 05:39:00 108.863 kg Universi ty of [facility] Procedures Procedure Date / Time Performed Performing Clinician [facility] CONSENT/REFUSAL FOR 2021-09-13 05:29:08 Doctor Unassigned, No Un [facility] DIAGNOSIS AND Name Medical Branch TREATMENT NOTICE OF PRIVACY 2021-09-13 05:28:35 Doctor Unassigned, No [facility] 2020-12-31 21:04:00 Perry Herndon [facility] URINALYSIS 2020-12-31 20:58:00 Perry Herndon [facility] CONSENT/REFUSAL FOR 2020-12-31 20:17:00 Doctor Unassigned, No [facility] [place] DIAGNOSIS AND Name [facility] TREATMENT POCT TEST 2020-10-17 19:59:00 Felipa Briseno [facility] GARDASIL 9 (HPV 9V) 2020-10-17 19:16:48 Felipa Briseno [facility] VACCINE [facility] CONSENT/REFUSAL FOR 2020-10-17 17:25:15 Doctor Unassigned, No [facility] [place] [facility] AND Name Medical [place] TREATMENT ASSIGNMENT OF BENEFITS 2020-10-17 17:24:54 Doctor Unassigned, No [facility] BASIC METABOLIC PANEL 2020-08-09 05:20:00 Morena Benton [facility] (NA, K, CL, CO2, Medical Branch GLUCOSE, BUN, CREATININE, CA) CBC WITH DIFF 2020-08-09 05:20:00 Morena Benton [facility] POCT TEST 2020-08-09 05:05:00 Morena Benton [facility] URINALYSIS 2020-08-09 05:03:00 Morena Benton [facility] NOTICE OF PRIVACY 2020-08-09 04:47:00 Doctor Unassigned, No [facility] [place] CONSENT/REFUSAL FOR 2020-08-09 04:46:34 Doctor Unassigned, No [facility] [place] DI[facility] AND Name Medical [place] TREATMENT XR CHEST 1 VW 2020-01-08 06:19:33 El Hussein [facility] LIPASE 2020-01-08 06:14:00 El Hussein [facility] TROPONIN I 2020-01-08 06:14:00 El Hussein [facility] HEPATIC FUNCTION PANEL 2020-01-08 06:14:00 El Hussein [facility] ([id number]) [facility] (ALB,T.PRO,BILI T,BU/BC,ALT,AST,ALK PHOS) BASIC METABOLIC PANEL 2020-01-08 06:14:00 El Hussein [facility] (NA, K, CL, CO2, Medical Branch GLUCOSE, BUN, CREATININE, CA) CBC WITH DIFF 2020-01-08 06:14:00 El Hussein [facility] URINALYSIS 2020-01-08 06:14:00 El Hussein [facility] POCT TEST 2020-01-08 06:13:00 El Hussein [facility] EKG-12 LEAD 2020-01-08 05:54:25 El Hussein [facility] Encounters Start End Encounter Admission Attending Care Care Encounter Source Date/Time Date/Time Type Type Clinicians Facility Department ID 2021-04-02 Emergency [facility] [id number] Univers 12:16:56 ity [facility] 2021-09-13 2021-09-13 Emergency X [facility] ERT [id number] Univers 00:42:00 02:04[facility] 2021-09-13 2021-09-13 Emergency [facility] [id number] Univers 00:42:00 02:04:00 Prakash Sykes [place] [id number] i ty [facility] [id number] [facility] [id number] [address] 2021-03-02 2021-03-02 Telephone [facility] [id number] Univers 00:00:00 00:00:00 Felipa Messina PRODUCT ANALYST [id number] ity [facility] [id number] [place] as MATERNAL [phone] Med ical & CHILD [address] [place] [address] 2021-02-19 2021-02-19 [facility] [id number] Univers 08:15:00 08:15:00 FELIPA mills [facility] 2021-02-06 2021-02-06 Outpatient R FINN, [facility] [id number] Univers 10:30:00 10:30:00 FELIPA mills o f [facility] 2020-12-31 2020-12-31 Emergency [facility] [id number] Univers 16:05:00 18:56:00 Annabella Almanzar [place] [id number] ity [facility] [id number] [facility] [phone] [place] [id number] [place] 2020-12-25 2020-12-25 Telephone [facility] [id number] Univers 00:00:00 00:00:00 Felipa Messina PRODUCT ANALYST [id number] [facility] [id number] [place] MATERNAL [id number] [facility] & CH[facility] [address] [place] [address] 2020-12-24 2020-12-24 Nurse Lise Garcia [id number] Univers 00:00:00 00:00:00 Triage [place] [id number] it y of [facility] [id number] [place] as [id number] [facility] 019 [place] 2020-11-07 2020-11-07 Office [facility] [id number] Univers 09:33:35 11:41:19 Visit Felipa Messina PRODUCT ANALYST [id number] [facility] [id number] [place] MATERNAL [id number] [facility] & CHILD [address] [place] [address] 2020-11-07 2020-11-07 Outpatient R FINN, [facility] [id number] Univers 09:30:00 09:30:00 FELIPA mills o f [facility] 2020-11-03 2020-11-03 Telephone [facility] [id number] Univers 00:00:00 00:00:00 Felipa C PRODUCT ANALYST [id number] [facility] [id number] [place] MATERNAL [phone] [facility] ical & CHILD [address] [place] [address] 2020-11-02 2020-11-02 [facility] [id number] Univers 00:00:00 00:00:00 Felipa C PRODUCT ANALYST 350.1.13.10 ity of REGIONAL 4.2.7.2.686 [place] as MATERNAL [phone] [facility] & CHILD [address] [place] [address] 2020-11-01 2020-11-01 Refill [facility] [id number] Univers 00:00:00 00:00:00 Felipa C PRODUCT ANALYST 350.1.13.10 ity of REGIONAL 4.2.7.2.686 [place] as MATERNAL [phone] [facility] & CHILD [address] [place] [address] 2020-11-01 2020-11-01 Letter DEON JonasIT 1.2.840.114 [id number] Univers 00:00:00 00:00:00 (Out) [facility] 350.1.13.10 i ty of [facility] [place].2.[place] [phone] [address] 2020-10-27 2020-10-27 Outpatient [facility] [id number] Univers 15:30:00 15:30:00 ity of [facility] 2020-10-19 2020-10-19 Telephone [facility] 1.2.840.114 [id number] Univers 00:00:00 00:00:00 Felipa C PRODUCT ANALYST 350.1.13.10 ity of REGIONAL 4.2.7.2.686 [place] as MATERNAL [id number] [facility] & CHILD [address] [place] [address] 2020-10-17 2020-10-17 Office [facility] [id number] [id number] Univers 12:46:36 14:56:59 Visit Felipa C PRODUCT ANALYST 350.1.13.10 ity of REGIONAL 4.2.7.2.686 [place] MATERNAL [id number] [facility] & CHILD [address] [place] [address] 2020-10-17 2020-10-17 Outpatient R FINN [facility] [id number] Univers 13:00:00 13:00:00 FELIPA dueñas [facility] 2020-10-17 2020-10-17 Orders Doctor MARYSOL 1.2.840.114 [id number] Univers 00:00:00 00:00:00 Only Unassigned, MARCIO 350.1.13.10 ity of [place] 4.2.7.2.686 Wander as [phone] [address] 2020-08-08 2020-08-09 Emergency [facility] 1.2.840.114 [id number] Univers 22:53:00 01:02:00 Morena Yost 350.1.13.10 ity of [place] 4.2.7.2.[address] [facility] [id number] [address] 2020-08-08 2020-08-08 Emergency X [facility] ERT [id number] Univers 22:53:00 22:53:00 MORENA mills [facility] 2020-08-08 2020-08-08 Orders Doctor MARYSOL 1.2.840.114 [id number] Univers 00:00:00 00:00:00 Only Unassigned, MARCIO 350.1.13.10 ity of [place] [facility] 4.2.7.2.686 [place]ander as [id number] [address] 2020-01-08 2020-01-08 Emergency El Hussein [facility] 1.2.840.114 [id number] 00:31:00 02:30:00 T Priyank 350.1.13.10 [place] 4.2.7.2.686 [place] [id number] [facility] 2020-01-08 2020-01-08 Emergency El Hussein [facility] 1.2.840.114 [id number] Univers 00:31:00 02:30:00 T Priyank 350.1.13.10 i ty of [place] 4.2.7.2.686 [place] [facility] [phone] [address] 2020-01-08 2020-01-08 Emergency X EL HUSSEIN [facility] ERT [id number] Univers 00:31:00 00:31:00 [facility] Results Test Description Test Time Test Comments Results Result Comments Source URINALYSIS 2020-12-31 21:40:37 Test Item Value Reference Range Interpretation Comme nts APPEARANCE (test code = Hazy Clear A 2533866955) COLOR (test code = 8409857797) Yellow Yellow PH (test code = 1293365644) 4.8-8.0 SP GRAVITY (test code = 1.003-1.030 8471362883) GLU U QUAL (test code = Normal Normal 9083281701) BLOOD (test code = 7533194891) 2+ Negative A KETONES (test code = 3705472731) Negative Negative PROTEIN (test code = 2887-8) Negative Negative UROBILIN (test code = Normal Normal 3072961952) BILIRUBIN (test code = Negative Negative 4619961280) NITRITE (test code = 0125667309) Negative Negative LEUK MAXIMINO (test code = Negative Negative 9499650957) RBC/HPF (test code = 3496319907) See_Comment [Automated message] The system which ge nerated this result transmit jill reference range: 0 - 3 HP F. The reference range was not used to interpret th is result as normal/abnormal . WBC/HPF (test code = 0881768158) See_Comment [Automated message] The system which ge nerated this result transmit jill reference range: 0 - 5 HP F. The reference range was not used to interpret th is result as normal/abnormal . BACTERIA (test code = Few Negative A 8407656020) MUCOUS (test code = 4245917370) Slight Negative LPF A SQ EPITH (test code = HPF 9218373109) HYAL CAST (test code = See_Comment [Aut omated message] The 8250185644) system which ge nerated this result transmit jill reference range: <=2 LPF. The reference range was not u sed to interpret this result as normal/abnormal . Lab Interpretation (test code = Abnormal 86632-1) [id number] 21:04:00 Test Item Value Reference Range Interpretation Comments POCT PREG (test code = 1605) negative On board controls acceptable with present C Line (test code = 3574) POCT PREG LOT # (test code = 3575) [id number] POCT PREG TEST DATE (test 06/01/2022 code = 3576) Lab Interpretation (test code = Normal 08102-2) [facility] [id number] 20:00:00 Test Item Value Reference Range Interpretation Comments POCT PREG (test code = 1605) Negative On board controls acceptable with C Yes Line (test code = 3574) POCT PREG LOT # (test code = 3575) POCT PREG TEST DATE (test code = 3576) [facility] [id number] 20:00:00 Test Item Value Reference Range Interpretation Comments POCT PREG (test code = 1605) Negative On board controls acceptable with C Yes Line (test code = 3574) POCT PREG LOT # (test code = 3575) POCT PREG TEST DATE (test code = 3576) [facility] 05:59:35 Test Item Value Reference Range Interpretation Comments APPEARANCE (test code = Clear Clear 1974628448) COLOR (test code = Yellow Yellow 2123689456) PH (test code = 4.8-8.0 3151767557) SP GRAVITY (test code = 1.003-1.030 0877208937) GLU U QUAL (test code = Normal Normal 7659305759) BLOOD (test code = 1+ Negative A 1774652840) KETONES (test code = Negative Negative 5798617599) PROTEIN (test code = Negative Negative 2887-8) UROBILIN (test code = Normal Normal 6983745802) BILIRUBIN (test code = Negative Negative 2065578256) NITRITE (test code = Negative Negative 5866364915) LEUK MAXIMINO (test code = Negative Negative 9315777623) RBC/HPF (test code = See_Comment [Autom ated message] 5800882928) The system IGIGI generated this result transmitted ref erence range: 0 - 3 HP F. The reference range was not used to int erpret this result as normal/abnormal . WBC/HPF (test code = See_Comment [Autom ated message] 1006618482) The system IGIGI generated this result transmitted ref erence range: 0 - 5 HP F. The reference range was not used to int erpret this result as normal/abnormal . BACTERIA (test code = Few Negative A 2562870017) MUCOUS (test code = Slight Negative LPF A 6958722413) SQ EPITH (test code = HPF 9379491195) Lab Interpretation (test Abnormal code = 30420-6) [facility] (NA, K, CL, CO2, GLUCOSE, BUN, CREATININE, CA)2020-08-09 05:38:20 Test Item Value Reference Range Interpretation Comments NA (test code = 137 mmol/L 135-145 1658178284) K (test code = 3.8 mmol/L 3.5-5.0 2155050341) CL (test code = 102 mmol/L 98-108 7238078725) CO2 TOTAL (test code = 26 mmol/L 23-31 8487408631) AGAP (test code = 2-16 7760617187) BUN (test code = 9 mg/dL 7-23 1458228617) GLUCOSE (test code = 83 mg/dL 70-110 3657063227) CREATININE (test code 0.67 mg/dL 0.50-1.04 = 3237721016) CALCIUM (test code = 9.4 mg/dL 8.6-10.6 9535767007) eGFR Calculation mL/min/1.73m2 (Non-) (test code = 2938041592) eGFR Calculation mL/min/1.73m2 () (test code = 8343338777) AVA (test code = AVA) Association of [...] or urine or abnormalities in imaging tests). [facility] [id number] 05:05:00 Test Item Value Reference Range Interpretation Comments POCT PREG (test code = 1605) neg On board controls acceptable with yes C Line (test code = 3574) POCT PREG LOT # (test code = 3575) [id number] POCT PREG TEST DATE (test 04/01/2022 code = 3576) Lab Interpretation (test code = Normal 05328-6) [facility] [id number] 06:59:00 Test Item Value Reference Range Interpretation Comments TROPONIN I (test <0.012 See_Comment [Automated code = 6989431592) message] The system which generated this result [...] ? Lab Interpretation Normal (test code = 94213-3) [facility] Metabolic Panel (NA, K, CL, CO2, GLUCOSE, BUN, CREATININE, CA)2020-01-08 06:48:00 Test Item Value Reference Range Interpretation Comments NA (test code = 138 mmol/L 135-145 8059979150) K (test code = 4.0 mmol/L 3.5-5 7744562571) CL (test code = 106 mmol/L 98-108 7453280342) CO2 TOTAL (test code = 24 mmol/L 23-31 2376202965) AGAP (test code = 2-16 2954850966) BUN (test code = 10 mg/dL 7-23 7233350235) GLUCOSE (test code = 91 mg/dL 70-110 3771721663) CREATININE (test code 0.64 mg/dL 0.5-1.04 = 4977691739) CALCIUM (test code = 9.3 mg/dL 8.6-10.6 7582675011) eGFR Calculation mL/min/1.73m2 (Non-) (test code = 7975665155) eGFR Calculation mL/min/1.73m2 () (test code = 9492516554) AVA (test code = AVA) Association of [...] or urine or abnormalities in imaging tests). [facility] (ALB, T.PRO, BILI T, BU/BC, ALT, AST, ALK PHOS)2020-01-08 06:48:00 Test Item Value Reference Range Interpretation Comments TOTAL BILI (test code = 4261188267) 0.2 mg/dL 0.1-1.1 BILI UNCON (test code = 7257258668) 0.4 mg/dL 0.1-1.1 BILI CONJ (test code = 3747464102) 0.0 mg/dL 0-0.3 T PROTEIN (test code = 6494031560) 7.4 g/dL 6.3-8.2 ALBUMIN (test code = 4608077648) 4.6 g/dL 3.5-5 ALK PHOS (test code = 2689733342) 45 U/L 34-122 ALTv (test code = 1742-6) 22 U/L 5-35 AST(SGOT) (test code = 4296839469) 27 U/L 13-40 Lab Interpretation (test code = Normal 18434-0) [facility] Center[facility] [id number] 06:48:00 Test Item Value Reference Range Interpretation Comments LIPASE (test code = 0540825179) 78 U/L 0-220 Lab Interpretation (test code = Normal 55277-0) [facility]2020-[facility]-08 06:41:00 Test Item Value Reference Range Interpretation Comments APPEARANCE (test code = Clear Clear 7673002052) COLOR (test code = Colorless Yellow A 3458776698) PH (test code = 4.8-8.0 0184436318) SP GRAVITY (test code = 1.003-1.030 1664427704) GLU U QUAL (test code = Normal Normal 9989564399) BLOOD (test code = 1+ Negative A 0198160056) KETONES (test code = Negative Negative 0532209735) PROTEIN (test code = Negative Negative 2887-8) UROBILIN (test code = Normal Normal 8703125003) BILIRUBIN (test code = Negative Negative 4125852468) NITRITE (test code = Negative Negative 1987447432) LEUK MAXIMINO (test code = Negative Negative 6991056970) RBC/HPF (test code = See_Comment [Autom ated message] 1976065856) The system IGIGI generated this result transmit jill reference range : 0 - 3 HPF. The refe rence range was not u sed to interpret th is result as normal/abnormal . WBC/HPF (test code = See_Comment [Autom ated message] 7832684273) The system IGIGI generated this result transmit jill reference range : 0 - 5 HPF. The refe rence range was not u sed to interpret th is result as normal/abnormal . BACTERIA (test code = Few Negative A 6302800834) SQ EPITH (test code = HPF 3478215682) Lab Interpretation (test Abnormal code = 62752-5) [facility] with [id number] 06:31:00 Test Item Value Reference Range Interpretation Comments WBC (test code = See_Comment [Automated 2890-2) message] The sy stem which generated this result transmitted reference range : 4.30 - 11.10 10*3/?L. The reference range was not used to interpret this result as normal/abnormal . RBC (test code = See_Comment [Automated 129-8) message] The sy stem which generated this [...] RDW-SD (test code = 39.7 fL 39-49.9 91746-6) RDW-CV (test code = 13.2 % 12-15.5 788-0) PLT (test code = See_Comment H [Automated 777-3) message] The sy stem which generated this result transmitted reference range : 166 - 358 10*3/ ?L. The reference r karishma was not used to interpret this result as normal/abnormal . MPV (test code = 10.2 fL 9.5-12.9 27614-1) NRBC/100 WBC (test See_Comment [Automat ed code = 0067756206) message] The system which generated this result transmitted reference range : 0.0 - 10.0 /100 WBCs. The refer ence range was not u sed to interpret th is result as normal/abnormal . NRBC x10^3 (test code <0.01 See_Comment [Auto mated = 6754831846) message] The s ystem which generated this result transmitted reference range : 10*3/?L. The reference range was not used to interpret this result as normal/abnormal . GRAN MAT (NEUT) % 48.6 % (test code = 770-8) IMM GRAN % (test code 0.60 % = 0802911636) LYMPH % (test code = 41.9 % 736-9) MONO % (test code = 6.3 % 5905-5) EOS % (test code = 2.2 % 713-8) BASO % (test code = 0.4 % 706-2) GRAN MAT x10^3(ANC) 5.09 10*3/uL 1.88-7.09 (test code = 6176122976) IMM GRAN x10^3 (test 0.06 10*3/uL 0-0.06 code = 1694631582) LYMPH x10^3 (test code 4.38 10*3/uL 1.32-3.29 H = 731-0) MONO x10^3 (test code 0.66 10*3/uL 0.33-0.92 = 742-7) EOS x10^3 (test code = 0.23 10*3/uL 0.03-0.39 711-2) BASO x10^3 (test code 0.04 10*3/uL 0.01-0.07 = 704-7) Lab Interpretation Abnormal (test code = 74595-8) [facility] [id number] 06:13:00 Test Item Value Reference Range Interpretation Comments POCT PREG (test code = 1605) negative On board controls acceptable with positive C Line (test code = 3574) POCT PREG LOT # (test code = 3575) [id number] POCT PREG TEST DATE (test code = 3576) Lab Interpretation (test code = Normal 08266-1) [facility]"
[2022-03-25] MEDS ORDERED: ACETAMINOPHEN 500 MG TAB ONE (13:57)
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
[2022-03-25 16:14] VITALS: BP 121/69; O2SAT 100
== END 2022-03-25 15:33 | disposition home or self-care (01) ==
LOC: ER 13:36
DX: M54.2 Cervicalgia (principal); W18.00XA Striking against unspecified object with subsequent fall, initial encounter
CPT/HCPCS: 70450; 72125; 99283

== ENCOUNTER 2022-10-14 09:03 | Emergency (ER) | payer SELFPAY ==
--- OUTSIDE RECORDS SUMMARY | 2022-10-14 09:11 | XMS REPORT | Continuity of Care Document ---
:2000 Author Organization [facility] t Address [address] [place] [address] Care Team Providers Name Role Phone CHUY ULLOA Primary Care Physician Unavailable PRAKASH ALLAN Attending Clinician Unavailable Prakash Wells Attending Clinician Doctor Unassigned, [place] Attending Clinician Unavailable Felipa Castellanos Attending Clinician [phone] FELIPA BRISENO Attending Clinician Unavailable Annabella Samayoa NP Attending Clinician Lise Garcia RN Attending Clinician Unavailable Jake Jonas MD Attending Clinician Morena Benton DO Attending Clinician MORENA BENTON Attending Clinician Unavailable [place] Attending Clinician [place] Attending Clinician Unavailable PRAKASH ALLAN Admitting Clinician Unavailable Payers Payer Name Policy Type Policy Number Effective Date Expiration Date S teresa MEDICAID PENDING PENDING 2020 2021 00:00:00 00:00:00 Problems Condition Condition Condition Status Onset Resolution Last Treating Co mments Source Name Details Category Date Date Treatment Clinician Date Well woman Well woman Disease Active U nivers exam exam 5-18 ity of 00:00: [place] 00 Medical Branch Obesity Obesity Disease Active Univers (BMI (BMI 5-18 ity of 30-39.9) 30-39.9) 00:00: [place] [facility] Pilonidal Pilonidal Disease Active Uni vers cyst cyst 5-18 ity of 00:00: [place] [facility] No known No known Disease Unive rs active active ity of problems problems [facility] Branch Allergies, Adverse Reactions, Alerts Allergy Allergy Status Severity Reaction(s) Onset Inactive Treating Comm ents Source Name Type Date Date Clinician Cat Propensi Active Hives Univers Dander ty to 5-18 ity of adverse 00:00: [place] reaction 00 Medical s Branch CAT DRUG Active Hives Univers DANDER INGREDI -18 ity of 00:00: [place] [facility] PENICILL Drug Active Hives Univers INS Class 9-16 ity of 00:00: Medical Branch Penicill Propensi Active Hives Univer s ins ty to 9-16 ity of adverse 00:00: [place] reaction 00 Medical s Branch Penicill Propensi Active Hives Univer s ins ty to 9-16 ity of adverse 00:00: [place] reaction 00 Medical s Branch Social History Social Habit Start Date Stop Date Quantity Comments Source History of tobacco Cigarette Smoker University of use [facility] Branch History Counts include 234 beds at the [facility] o f Alcohol Frequency [facility] Branch History Counts include 234 beds at the [facility] o f Alcohol Std Drinks [facility] Branch History Counts include 234 beds at the [facility] o f Alcohol Binge [facility] al Branch Exposure to 2022-06-22 2022-07-02 Not sure University of SARS-CoV-2 (event) 00:00:00 12:36:00 [facility] Branch Alcohol intake 2022-07-02 2022-07-02 Current drinker Unive rsity of 00:00:00 00:00:00 of alcohol [facility] (finding) Branch Cigarettes smoked 2020-10-17 2020-10-17 Univers ity of current (pack per 00:00:00 00:00:00 [facility] ) - Reported Branch Tobacco use and 2020-10-17 2020-10-17 Former smokeless Uni versity of exposure 00:00:00 00:00:00 tobacco user [place] [facility] Tobacco Comment 2020-10-17 2020-10-17 8-10 cigarettes a Un iversity of 00:00:00 00:00:00 day [facility] Alcohol Comment 2020-10-17 2020-10-17 socially Universit y of 00:00:00 00:00:00 [facility] Sex Assigned At [birth year] Universit y of 00:00:00 00:00:00 [facility] Smoking Status Start Date Stop Date Source Smokes tobacco daily 2020-10-17 00:00:00 Univers ity [facility] Unknown if ever smoked [facility] y [facility] Medications Ordered Filled Start Stop Current Ordering Indication Dosage Frequency Signature Comments Components Source Medication Medication Date Date Medication? Clinician (SIG) Name Name ibuprofen No 600mg 600 mg, Uni vers (IBU) 07-02 Oral, ity of tablet 600 18:30: 18:57 ONCE, 1 [place] as mg 00 :00 dose, On Medical Tue Branch 07/02/22 at 1230, SHALOM clindamycin 2021- No 450mg 450 mg, U nivers (CLEOCIN 4-14 04-14 Oral, ity of HCL) 08:00: 06:55 ONCE, 1 [place] capsule 450 00 :00 dose, On Medi walter mg Claribel Branch 09/13/21 at 0300, SHALOM
Re ason for Anti-Infec tive: Documented Infection< br>Documen jill Infection Site: Skin / Soft Tissue
Duration of Therapy: Other (see Comments)< br>Restric jill use approved by: ED PROVIDER<b r>Indicati on for Clindamyci n use: pilonidal cyst allergic to PCN clindamycin 2021- No [id number] 450mg Take 3 Univers 150 mg -14 04-25 capsules ity of capsule 00:00: 04:59 by mouth 3 [place] as 00 :00 (three) Medical times [place] daily for 10 days. norgestimat Yes [id number] 1{tbl} Take 1 Univers e-ethinyl 6-08 tablet by ity o f estradioL 00:00: mouth [place] (ORTHO 00 daily. Medical TRI-CYCLEN, Branch 28,) 0.18/0.215/ 0.25 mg-35 mcg (28) tablet norgestimat 2021-0 Yes [id number] 1{tbl} Take 1 Univers e-ethinyl 6-08 tablet by ity o f estradioL 00:00: mouth [place] (ORTHO 00 daily. [place] [id number],) 0.18/0.215/ 0.25 mg-35 mcg (28) tablet norgestimat 202-0 Yes [id number] 1{tbl} Take 1 Univers e-ethinyl 6-08 tablet by ity o f estradioL 00:00: mouth [place] (ORTHO 00 daily. [place] [address],) 0.18/0.215/ 0.25 mg-35 mcg (28) tablet norgestimat 2020-0 Yes [id number] 1{tbl} Take 1 Univers e-ethinyl 6-08 tablet by ity o f estradioL 00:00: mouth [place] (ORTHO 00 daily. [place] [address],) 0.18/0.215/ 0.25 mg-35 mcg (28) tablet norgestimat 2020-0 Yes [id number] 1{tbl} Take 1 Univers e-ethinyl 6-08 tablet by ity o f estradioL 00:00: mouth [place] (ORTHO 00 daily. [place] [address],) 0.18/0.215/ 0.25 mg-35 mcg (28) tablet norgestimat 2020-0 Yes [id number] 1{tbl} Take 1 Univers e-ethinyl 6-08 tablet by ity o f estradioL 00:00: mouth [place] (ORTHO 00 daily. [place] [address],) 0.18/0.215/ 0.25 mg-35 mcg (28) tablet norgestimat 2020-0 Yes [id number] 1{tbl} Take 1 Univers e-ethinyl 6-08 tablet by ity o f estradioL 00:00: mouth [place] (ORTHO 00 daily. [place] [address],) 0.18/0.215/ 0.25 mg-35 mcg (28) tablet norgestimat 2021-0 Yes [id number] 1{tbl} Take 1 Univers e-ethinyl 6-08 tablet by ity o f estradioL 00:00: mouth [place] (ORTHO 00 daily. Medical TRI-CYCLEN, Branch 28,) 0.18/0.215/ 0.25 mg-35 mcg (28) tablet norgestimat 2020-0 Yes [id number] 1{tbl} Take 1 Univers e-ethinyl 6-08 tablet by ity o f estradioL 00:00: mouth [place] (ORTHO 00 daily. Medical TRI-CYCLEN, Branch 28,) 0.18/0.215/ 0.25 mg-35 mcg (28) tablet medroxyPROG 2020-2020- No [id number] 10mg Take 1 Univers ESTERone 5-20 05-31 tablet by ity o f (PROVERA) 00:00: 04:59 mouth [place] 10 mg 00 :00 daily for Medical tablet 10 days. [facility] medroxyPROG 2020-0 2020- No [id number] 10mg Take 1 Univers ESTERone 5-20 05-31 tablet by ity o f (PROVERA) 00:00: 04:59 mouth [place] 10 mg 00 :00 daily for Medical tablet 10 days. [place] medroxyPROG 2020-0 2020- No [id number] 10mg Take 1 Univers ESTERone 5-20 05-31 tablet by ity o f (PROVERA) 00:00: 04:59 mouth [place] 10 mg 00 :00 daily for Medical tablet 10 days. [place] medroxyPROG 2020-0 2020- No [id number] 10mg Take 1 Univers ESTERone 5-20 05-31 tablet by ity o f (PROVERA) 00:00: 04:59 mouth [place] 10 mg 00 :00 daily for Medical tablet 10 days. [place] phentermine 2020-0 Yes 37.5mg Take 37.5 Univers 37.5 mg 5-18 mg by ity of capsule 18:21: mouth [place] 18 every Medical morning. Branch phentermine 2020-0 Yes 37.5mg Take 37.5 Univers 37.5 mg 5-18 mg by ity of capsule 18:21: mouth [place] 18 every Medical morning. [place] phentermine 2020-0 Yes 37.5mg Take 37.5 Univers 37.5 mg 5-18 mg by ity of capsule 18:21: mouth [place] 18 every Medical morning. Branch phentermine 2020-0 Yes 37.5mg Take 37.5 Univers 37.5 mg 5-18 mg by ity of capsule 18:21: mouth [place] 18 every Medical morning. Branch phentermine 1-0 Yes 37.5mg Take 37.5 Univers 37.5 mg 5-18 mg by ity of capsule 18:21: mouth [place] 18 every Medical morning. Branch phentermine 1-0 Yes 37.5mg Take 37.5 Univers 37.5 mg 5-18 mg by ity of capsule 18:21: mouth [place] 18 every Medical morning. Branch phentermine 1-0 Yes 37.5mg Take 37.5 Univers 37.5 mg [...] [place] 18 every Medical morning. Branch phentermine 1-0 Yes 37.5mg Take 37.5 Univers 37.5 mg 5-18 mg by ity of capsule 18:21: mouth [place] 18 every Medical morning. Branch phentermine 1-0 Yes 37.5mg Take 37.5 Univers 37.5 mg 5-18 mg by ity of capsule 18:21: mouth [place] 18 every Medical morning. Branch phentermine 2021-0 Yes 37.5mg Take 37.5 Univers 37.5 mg [...] 13:21: mouth [place] 18 every Medical morning. Branch phentermine 2020-0 Yes 37.5mg Take 37.5 Univers 37.5 mg 5-18 mg by ity of capsule 13:21: mouth [place] 18 every Medical morning. Branch phentermine 2020-0 Yes 37.5mg Take 37.5 Univers 37.5 mg 5-18 mg by ity of capsule 13:21: mouth [place] 18 every Medical morning. Branch phentermine 2020-0 Yes 37.5mg Take 37.5 Univers 37.5 mg 5-18 mg by ity of capsule 13:21: mouth [place] 18 every Medical morning. [place] ketorolac 2020- No 30mg 30 mg, Unive rs (TORADOL) 3-10 03-10 Slow IV ity of injection 05:45: 05:42 Push, [place] 30 mg 00 :00 ONCE, 1 Medical dose, aaron [place] 08/08/20 at 2345, SHALOM
Fa culty member approving Restricted medication : MORENA BENTON sulfamethox Yes 2{tbl} Take 2 Un fabrice azole-trime 9-16 tablets by it y of thoprim 00:00: mouth 2 [place] (BACTRIM 00 (two) Medical DS) 800-160 times Branch mg per daily. tablet traMADOL Yes 50mg Take 1-2 Unive rs (ULTRAM) [...] Branch mg per daily. tablet traMADOL 2018-0 2020- No 50mg Take 1-2 Univ ers (ULTRAM) 50 9-16 05-18 tablets by i ty of mg tablet 00:00: 00:00 mouth [place] 00 :00 every 8 Medical (eight) Branch hours as needed (severe pain, alternate with ibuprofen) . sulfamethox 2020- No 2{tbl} Take 2 U nivers azole-trime 02-15-18 tablets by i ty of thoprim 00:00: 00:00 mouth 2 [place] (BACTRIM 00 :00 (two) Medical DS) 800-160 times Branch mg per daily. tablet traMADOL 2020- No 50mg Take 1-2 Univ ers (ULTRAM) 50 02-15-18 tablets by i ty of mg tablet 00:00: 00:00 mouth [place] 00 :00 every 8 Medical (eight) Branch hours as needed (severe pain, alternate with ibuprofen) . Immunizations Ordered Immunization Filled Immunization Date Status Commen ts Source Name Name [facility] 2020-10-17 Completed University of 00:00:00 [facility] HPV9 2020-10-17 Completed University of 00:00:00 [facility] HPV9 2020-10-17 Completed University of 00:00:00 [facility] HPV9 2020-10-17 Completed University of 00:00:00 [facility] HPV9 2020-10-17 Completed University of 00:00:00 [facility] HPV9 2020-10-17 Completed University of 00:00:00 [facility] HPV9 2020-10-17 Completed University of 00:00:00 [facility] HPV9 2020-10-17 Completed University of 00:00:00 [facility] [place] [facility]9 2020-10-17 Completed University of 00:00:00 [facility] HPV9 2020-10-17 Completed University of 00:00:00 [facility] HPV9 2020-10-17 Completed University of 00:00:00 [facility] HPV9 2020-10-17 Completed University of 00:00:00 [facility] HPV9 2020-10-17 Completed University of 00:00:00 [facility] HPV9 2020-10-17 Completed University of 00:00:00 [facility] HPV9 2020-10-17 Completed University of 00:00:00 [facility] HPV9 2020-10-17 Completed University of 00:00:00 [facility] HPV9 2020-10-17 Completed University of 00:00:00 [facility] HPV9 2020-10-17 Completed University of 00:00:00 [facility] Branch HPV9 2020-10-17 Completed University of 00:00:00 [place] [facility] HPV9 2020-10-17 Completed University of 00:00:00 [place] [facility] HPV9 2020-10-17 Completed University of 00:00:00 [place] [facility] HPV9 2020-10-17 Completed University of 00:00:00 [facility] Branch HPV9 2020-10-17 Completed University of 00:00:00 [place] [facility] HPV 2018-09-15 Completed University of 00:00:00 [place] [facility] Meningococcal 2018-09-15 Completed University of Vaccine 00:00:00 [place] [facility] HPV 2018-09-15 Completed University of 00:00:00 [place] [facility] Meningococcal 2018-09-15 Completed University of Vaccine 00:00:00 [facility] Branch HPV 2018-09-15 Completed University of 00:00:00 [facility] Branch Meningococcal 2018-09-15 Completed University of Vaccine 00:00:00 [facility] Branch HPV 2018-09-15 Completed University of 00:00:00 [facility] Branch Meningococcal 2018-09-15 Completed University of Vaccine 00:00:00 [facility] Branch HPV 2018-09-15 Completed University of 00:00:00 [place] [facility] Meningococcal 2018-09-15 Completed University of Vaccine 00:00:00 [facility] Branch HPV 2018-09-15 Completed University of 00:00:00 [facility] Branch Meningococcal 2018-09-15 Completed University of Vaccine 00:00:00 [facility] Branch HPV 2018-09-15 Completed University of 00:00:00 [facility] Branch Meningococcal 2018-09-15 Completed [...] HPV 2018-09-15 Completed University of 00:00:00 [facility] Meningococcal 2018-09-15 Completed University of Vaccine 00:00:00 [facility] HPV 2018-09-15 Completed University of 00:00:00 [facility] Meningococcal 2018-09-15 Completed University of Vaccine 00:00:00 [facility] HPV 2018-09-15 Completed University of 00:00:00 [facility] Meningococcal 2018-09-15 Completed University of Vaccine 00:00:00 [facility] HPV 2018-09-15 Completed University of 00:00:00 [facility] Meningococcal 2018-09-15 Completed University of Vaccine 00:00:00 [facility] HPV 2018-09-15 Completed University of 00:00:00 [facility] Meningococcal 2018-09-15 Completed University of Vaccine 00:00:00 [facility] HPV 2018-09-15 Completed University of 00:00:00 [facility] Meningococcal 2018-09-15 Completed University of Vaccine 00:00:00 [facility] HPV 2018-09-15 Completed University of 00:00:00 [facility] Meningococcal 2018-09-15 Completed University of Vaccine 00:00:00 [facility] HPV 2018-09-15 Completed University of 00:00:00 [facility] Meningococcal 2018-09-15 Completed University of Vaccine 00:00:00 [facility] HPV 2018-09-15 Completed University of 00:00:00 [facility] Meningococcal 2018-09-15 Completed University of Vaccine 00:00:00 [facility] HPV 2018-09-15 Completed University of 00:00:00 [facility] Meningococcal 2018-09-15 Completed University of Vaccine 00:00:00 [facility] HPV 2018-09-15 Completed University of 00:00:00 [facility] Meningococcal 2018-09-15 Completed University of Vaccine 00:00:00 [facility] HPV 2018-09-15 Completed University of 00:00:00 [facility] Meningococcal 2018-09-15 Completed University of Vaccine 00:00:00 [facility] HEPATITIS A 2012-01-21 Completed University of 00:00:00 [facility] Meningococcal 2012-01-21 Completed University of Vaccine 00:00:00 [facility] TDAP 2012-01-21 Completed University of 00:00:00 [facility] Varicella 2012-01-21 Completed University of (varivax)(chicken 00:00:00 [place] M edical pox) Branch HEPATITIS A 2012-01-21 Completed University of 00:00:00 [facility] Meningococcal 2012-01-21 Completed University of Vaccine 00:00:00 [facility] TDAP 2012-01-21 Completed University of 00:00:00 [facility] Varicella 2012-01-21 Completed University of (varivax)(chicken 00:00:00 [place] M edical pox) Branch HEPATITIS A 2012-01-21 Completed University of 00:00:00 [facility] Meningococcal 2012-01-21 Completed University of Vaccine 00:00:00 [facility] TDAP 2012-01-21 Completed University of 00:00:00 [facility] Varicella 2012-01-21 Completed University of (varivax)(chicken 00:00:00 [place] [facility] pox) Branch HEPATITIS A 2012-01-21 Completed University of 00:00:00 [facility] Meningococcal 2012-01-21 Completed University of Vaccine 00:00:00 [facility] TDAP 2012-01-21 Completed University of 00:00:00 [facility] Varicella 2012-01-21 Completed University of (varivax)(chicken 00:00:00 [place] [facility] pox) Branch HEPATITIS A 2012-01-21 Completed University of 00:00:00 [facility] Meningococcal 2012-01-21 Completed University of Vaccine 00:00:00 [facility] TDAP 2012-01-21 Completed University of 00:00:00 [facility] Varicella 2012-01-21 Completed University of (varivax)(chicken 00:00:00 [place] M edical pox) Branch HEPATITIS A 2012-01-21 Completed University of 00:00:00 [facility] Meningococcal 2012-01-21 Completed University of Vaccine 00:00:00 [facility] TDAP 2012-01-21 Completed University of 00:00:00 [facility] Varicella 2012-01-21 Completed University of (varivax)(chicken 00:00:00 [place] [facility] pox) Branch HEPATITIS A 2012-01-21 Completed University of 00:00:00 [facility] Meningococcal 2012-01-21 Completed University of Vaccine 00:00:00 [facility] TDAP 2012-01-21 Completed University of 00:00:00 [facility] Varicella 2012-01-21 Completed University of (varivax)(chicken 00:00:00 [place] M edical pox) Branch HEPATITIS A 2012-01-21 Completed University of 00:00:00 [facility] Meningococcal 2012-01-21 Completed University of Vaccine 00:00:00 [facility] TDAP 2012-01-21 Completed University of 00:00:00 [facility] Varicella 2012-01-21 Completed University of (varivax)(chicken 00:00:00 [place] M edical pox) Branch HEPATITIS A 2012-01-21 Completed University of 00:00:00 [facility] Meningococcal 2012-01-21 Completed University of Vaccine 00:00:00 [facility] TDAP 2012-01-21 Completed University of 00:00:00 [facility] Varicella 2012-01-21 Completed University of (varivax)(chicken 00:00:00 [place] [facility] pox) Branch HEPATITIS A 2012-01-21 Completed University of 00:00:00 [facility] Meningococcal 2012-01-21 Completed University of Vaccine 00:00:00 [facility] TDAP 2012-01-21 Completed University of 00:00:00 [facility] Varicella 2012-01-21 Completed University of (varivax)(chicken 00:00:00 [place] [facility] pox) Branch HEPATITIS A 2012-01-21 Completed University of 00:00:00 [facility] Meningococcal 2012-01-21 Completed University of Vaccine 00:00:00 [facility] TDAP 2012-01-21 Completed University of 00:00:00 [facility] Varicella 2012-01-21 Completed University of (varivax)(chicken 00:00:00 [place] M edical pox) Branch HEPATITIS A 2012-01-21 Completed University of 00:00:00 [facility] Meningococcal 2012-01-21 Completed University of Vaccine 00:00:00 [facility] TDAP 2012-01-21 Completed University of 00:00:00 [facility] Varicella 2012-01-21 Completed University of (varivax)(chicken 00:00:00 [place] [facility] pox) Branch HEPATITIS A 2012-01-21 Completed University of 00:00:00 [facility] Meningococcal 2012-01-21 Completed University of Vaccine 00:00:00 [facility] TDAP 2012-01-21 Completed University of 00:00:00 [facility] Varicella 2012-01-21 Completed University of (varivax)(chicken 00:00:00 [place] M edical pox) Branch HEPATITIS A 2012-01-21 Completed University of 00:00:00 [facility] Meningococcal 2012-01-21 Completed University of Vaccine 00:00:00 [facility] TDAP 2012-01-21 Completed University of 00:00:00 [facility] Varicella 2012-01-21 Completed University of (varivax)(chicken 00:00:00 [place] [facility] pox) Branch HEPATITIS A 2012-01-21 Completed University of 00:00:00 [facility] Meningococcal 2012-01-21 Completed University of Vaccine 00:00:00 [facility] TDAP 2012-01-21 Completed University of 00:00:00 [facility] Varicella 2012-01-21 Completed University of (varivax)(chicken 00:00:00 [facility] edical pox) Branch HEPATITIS A 2012-01-21 Completed University of 00:00:00 [facility] Meningococcal 2012-01-21 Completed University of Vaccine 00:00:00 [facility] TDAP 2012-01-21 Completed University of 00:00:00 [facility] Varicella 2012-01-21 Completed University of (varivax)(chicken 00:00:00 [facility] edical pox) Branch HEPATITIS A 2012-01-21 Completed University of 00:00:00 [facility] Meningococcal 2012-01-21 Completed University of Vaccine 00:00:00 [facility] TDAP 2012-01-21 Completed University of 00:00:00 [facility] Varicella 2012-01-21 Completed University of (varivax)(chicken 00:00:00 [place] edical pox) Branch HEPATITIS A 2012-01-21 Completed University of 00:00:00 [facility] Meningococcal 2012-01-21 Completed University of Vaccine 00:00:00 [facility] TDAP 2012-01-21 Completed University of 00:00:00 [facility] Varicella 2012-01-21 Completed University of (varivax)(chicken 00:00:00 [facility] edical pox) Branch HEPATITIS A 2012-01-21 Completed University of 00:00:00 [facility] Meningococcal 2012-01-21 Completed University of Vaccine 00:00:00 [facility] TDAP 2012-01-21 Completed University of 00:00:00 [facility] Varicella 2012-01-21 Completed University of (varivax)(chicken 00:00:00 [place] M edical pox) Branch HEPATITIS A 2012-01-21 Completed [facility] 00:00:00 [facility] Meningococcal 2012-01-21 Completed [facility] of Vaccine 00:00:00 [facility] TDAP 2012-01-21 Completed [facility] 00:00:00 [facility] Varicella 2012-01-21 Completed [facility] of (varivax)(chicken 00:00:00 [place] [facility] pox) [facility] HEPATITIS A 2012-01-21 Completed [facility] 00:00:00 [facility] Meningococcal 2012-01-21 Completed [facility] of Vaccine 00:00:00 [facility] TDAP 2012-01-21 Completed [facility] 00:00:00 [facility] Varicella 2012-01-21 Completed [facility] of (varivax)(chicken 00:00:00 [facility] edical pox) Branch HEPATITIS A 2012-01-21 Completed [facility] of 00:00:00 [facility] Meningococcal 2012-01-21 Completed [facility] of Vaccine 00:00:00 [facility] TDAP 2012-01-21 Completed [facility] 00:00:00 [facility] Varicella 2012-01-21 Completed [facility] (varivax)(chicken 00:00:00 [place] [facility] pox) [facility] HEPATITIS A 2012-01-21 Completed [facility] 00:00:00 [facility] Meningococcal 2012-01-21 Completed [facility] of Vaccine 00:00:00 [facility] TDAP 2012-01-21 Completed [facility] 00:00:00 [facility] Varicella 2012-01-21 Completed [facility] (varivax)(chicken 00:00:00 [place] [facility] pox) [facility] MMR 2005-01-08 Completed [facility] 00:00:00 [facility] MMR 2005-01-08 Completed [facility] 00:00:00 [facility] MMR 2005-01-08 Completed [facility] 00:00:00 [facility] MMR 2005-01-08 Completed [facility] 00:00:00 [facility] MMR 2005-01-08 Completed [facility] 00:00:00 [facility] MMR 2005-01-08 Completed [facility] 00:00:00 [facility] MMR 2005-01-08 Completed [facility] 00:00:00 [facility] MMR 2005-01-08 Completed [facility] 00:00:00 [facility] MMR 2005-01-08 Completed [facility] 00:00:00 [facility] MMR 2005-01-08 Completed [facility] 00:00:00 [facility] MMR 2005-01-08 Completed [facility] 00:00:00 [facility] MMR 2005-01-08 Completed [facility] 00:00:00 [facility] MMR 2005-01-08 Completed [facility] 00:00:00 [facility] MMR 2005-01-08 Completed [facility] 00:00:00 [facility] MMR 2005-01-08 Completed [facility] 00:00:00 [facility] MMR 2005-01-08 Completed [facility] 00:00:00 [facility] MMR 2005-01-08 Completed [facility] 00:00:00 [facility] MMR 2005-01-08 Completed [facility] 00:00:00 [facility] MMR 2005-01-08 Completed [facility] 00:00:00 [facility] MMR 2005-01-08 Completed [facility] 00:00:00 [facility] MMR 2005-01-08 Completed [facility] 00:00:00 [facility] MMR 2005-01-08 Completed [facility] 00:00:00 [facility] MMR 2005-01-08 Completed [facility] 00:00:00 [facility] DTAP 2004-12-07 Completed [facility] 00:00:00 [facility] MMR 2004-12-07 Completed [facility] 00:00:00 [facility] Pneumococcal 13 2004-12-07 Completed [facility]it y of Conjugate, PCV13 00:00:00 [facility] dicwv (Prevnar 13) Branch Polio (IPV/OPV) 2004-12-07 Completed [facility] of 00:00:00 [facility] Varicella 2004-12-07 Completed [facility] (varivax)(chicken 00:00:00 [place] [facility] DTAP 2004-12-07 Completed [facility] 00:00:00 [facility] MMR 2004-12-07 Completed [facility] 00:00:00 [facility] Pneumococcal 13 2004-12-07 Completed Universit y of Conjugate, PCV13 00:00:00 [facility] dical (Prevnar 13) Branch Polio (IPV/OPV) 2004-12-07 Completed [facility]it [facility] of 00:00:00 [facility] Varicella 2004-12-07 Completed [facility] (varivax)(chicken 00:00:00 [place] [facility]ox) [facility] DTAP 2004-12-07 Completed [facility] 00:00:00 [facility] MMR 2004-12-07 Completed [facility] 00:00:00 [facility] Pneumococcal 13 2004-12-07 Completed [facility]it y of Conjugate, PCV13 00:00:00 [facility] dical (Prevnar 13) Branch Polio (IPV/OPV) 2004-12-07 Completed [facility]it [facility] of 00:00:00 [facility] Varicella 2004-12-07 Completed [facility] (varivax)(chicken 00:00:00 [place] [facility]ox) [facility] DTAP 2004-12-07 Completed [facility] 00:00:00 [facility] MMR 2004-12-07 Completed [facility] 00:00:00 [facility] Pneumococcal 13 2004-12-07 Completed Universit y of Conjugate, PCV13 00:00:00 [facility] dical (Prevnar 13) Branch Polio (IPV/OPV) 2004-12-07 Completed [facility]it [facility] of 00:00:00 [facility] Varicella 2004-12-07 Completed [facility] (varivax)(chicken 00:00:00 [place] [facility] pox) [facility] DTAP 2004-12-07 Completed [facility] 00:00:00 [facility] MMR 2004-12-07 Completed [facility] 00:00:00 [facility] Pneumococcal 13 2004-12-07 Completed Universit y of Conjugate, PCV13 00:00:00 [facility] dical (Prevnar 13) Branch Polio (IPV/OPV) 2004-12-07 Completed [facility] of 00:00:00 [facility] Varicella 2004-12-07 Completed [facility] (varivax)(chicken 00:00:00 [place] [facility]ox[facility] DTAP 2004-12-07 Completed [facility] 00:00:00 [facility] MMR 2004-12-07 Completed [facility] 00:00:00 [facility] Pneumococcal 13 2004-12-07 Completed [facility]it y of Conjugate, PCV13 00:00:00 [facility] dical (Prevnar 13) Branch Polio (IPV/OPV) 2004-12-07 Completed [facility] of 00:00:00 [facility] Varicella 2004-12-07 Completed [facility] (varivax)(chicken 00:00:00 [place] [facility]ox) [facility] DTAP 2004-12-07 Completed [facility] 00:00:00 [facility] MMR 2004-12-07 Completed [facility] 00:00:00 [facility] Pneumococcal 13 2004-12-07 Completed [facility]it [facility] of Conjugate, PCV13 00:00:00 [place] [facility] (Prevnar 13) Branch Polio (IPV/OPV) 2004-12-07 Completed [facility]it y of 00:00:00 [facility] Varicella 2004-12-07 Completed [facility] (varivax)(chicken 00:00:00 [place] [facility] pox) [facility] DTAP 2004-12-07 Completed [facility] 00:00:00 [facility] MMR 2004-12-07 Completed [facility] 00:00:00 [facility] Pneumococcal 13 2004-12-07 Completed Universit y of Conjugate, PCV13 00:00:00 [facility] dical (Prevnar 13) Branch Polio (IPV/OPV) 2004-12-07 Completed [facility]it y of 00:00:00 [facility] Varicella 2004-12-07 Completed [facility] (varivax)(chicken 00:00:00 [place] [facility] pox) [facility] DTAP 2004-12-07 Completed [facility] 00:00:00 [facility] MMR 2004-12-07 Completed [facility] of 00:00:00 [facility] Pneumococcal 13 2004-12-07 Completed Universit y of Conjugate, PCV13 00:00:00 [facility] dical (Prevnar 13) Branch Polio (IPV/OPV) 2004-12-07 Completed [facility]it y of 00:00:00 [facility] Varicella 2004-12-07 Completed [facility] (varivax)(chicken 00:00:00 [place] [facility] pox) [facility] DTAP 2004-12-07 Completed [facility] 00:00:00 [facility] MMR 2004-12-07 Completed [facility] 00:00:00 [facility] Pneumococcal 13 2004-12-07 Completed [facility]it y of Conjugate, PCV13 00:00:00 [facility] dical (Prevnar 13) Branch Polio (IPV/OPV) 2004-12-07 Completed [facility] of 00:00:00 [facility] Varicella 2004-12-07 Completed [facility] (varivax)(chicken 00:00:00 [place] [facility] pox) [facility] DTAP 2004-12-07 Completed [facility] 00:00:00 [facility] MMR 2004-12-07 Completed [facility] of 00:00:00 [facility] Pneumococcal 13 2004-12-07 Completed [facility]it y of Conjugate, PCV13 00:00:00 [facility] dical (Prevnar 13) Branch Polio (IPV/OPV) 2004-12-07 Completed [facility]it [facility] of 00:00:00 [facility] Varicella 2004-12-07 Completed [facility] of (varivax)(chicken 00:00:00 [place] [facility] pox) [facility] DTAP 2004-12-07 Completed [facility] 00:00:00 [facility] MMR 2004-12-07 Completed [facility] 00:00:00 [facility] Pneumococcal 13 2004-12-07 Completed [facility]it y of Conjugate, PCV13 00:00:00 [place] [facility] (Prevnar 13) Branch Polio (IPV/OPV) 2004-12-07 Completed [facility] of 00:00:00 [facility] Varicella 2004-12-07 Completed [facility] (varivax)(chicken 00:00:00 [place] [facility] pox) [facility] DTAP 2004-12-07 Completed [facility] 00:00:00 [facility] MMR 2004-12-07 Completed [facility] of 00:00:00 [facility] Pneumococcal 13 2004-12-07 Completed Universit y of Conjugate, PCV13 00:00:00 [facility] dical (Prevnar 13) Branch Polio (IPV/OPV) 2004-12-07 Completed [facility]it y of 00:00:00 [facility] Varicella 2004-12-07 Completed [facility] of (varivax)(chicken 00:00:00 [place] [facility] pox) [facility] DTAP 2004-12-07 Completed [facility] 00:00:00 [facility] MMR 2004-12-07 Completed [facility] of 00:00:00 [facility] Pneumococcal 13 2004-12-07 Completed Universit y of Conjugate, PCV13 00:00:00 [facility] dical (Prevnar 13) Branch Polio (IPV/OPV) 2004-12-07 Completed [facility]it y of 00:00:00 [facility] Varicella 2004-12-07 Completed [facility] (varivax)(chicken 00:00:00 [place] [facility] pox) [facility] DTAP 2004-12-07 Completed [facility] 00:00:00 [facility] MMR 2004-12-07 Completed [facility] of 00:00:00 [facility] Pneumococcal 13 2004-12-07 Completed Universit y of Conjugate, PCV13 00:00:00 [facility] dical (Prevnar 13) Branch Polio (IPV/OPV) 2004-12-07 Completed [facility]it [facility] of 00:00:00 [facility] Varicella 2004-12-07 Completed [facility] (varivax)(chicken 00:00:00 [place] [facility] pox) [facility] DTAP 2004-12-07 Completed [facility] 00:00:00 [facility] MMR 2004-12-07 Completed [facility] of 00:00:00 [facility] Pneumococcal 13 2004-12-07 Completed [facility]it y of Conjugate, PCV13 00:00:00 [place] [facility] (Prevnar 13) Branch Polio (IPV/OPV) 2004-12-07 Completed [facility]it y of 00:00:00 [facility] Varicella 2004-12-07 Completed [facility] (varivax)(chicken 00:00:00 [place] [facility] pox) [facility] DTAP 2004-12-07 Completed [facility] 00:00:00 [facility] MMR 2004-12-07 Completed [facility] of 00:00:00 [facility] Pneumococcal 13 2004-12-07 Completed Universit y of Conjugate, PCV13 00:00:00 [facility] dical (Prevnar 13) Branch Polio (IPV/OPV) 2004-12-07 Completed Universit y of 00:00:00 [facility] Varicella 2004-12-07 Completed [facility] (varivax)(chicken 00:00:00 [place] [facility] pox) [facility] DTAP 2004-12-07 Completed [facility] 00:00:00 [facility] MMR 2004-12-07 Completed [facility] of 00:00:00 [facility] Pneumococcal 13 2004-12-07 Completed Universit y of Conjugate, PCV13 00:00:00 [facility] dical (Prevnar 13) Branch Polio (IPV/OPV) 2004-12-07 Completed [facility]it y of 00:00:00 [facility] Varicella 2004-12-07 Completed [facility] (varivax)(chicken 00:00:00 [place] [facility] pox) [facility] DTAP 2004-12-07 Completed [facility] 00:00:00 [facility] MMR 2004-12-07 Completed [facility] of 00:00:00 [facility] Pneumococcal 13 2004-12-07 Completed Universit y of Conjugate, PCV13 00:00:00 [facility] dical (Prevnar 13) Branch Polio (IPV/OPV) 2004-12-07 Completed Universit y of 00:00:00 [facility] Varicella 2004-12-07 Completed [facility] (varivax)(chicken 00:00:00 [place] [facility] pox) [facility] DTAP 2004-12-07 Completed [facility] 00:00:00 [facility] MMR 2004-12-07 Completed [facility] of 00:00:00 [facility] Pneumococcal 13 2004-12-07 Completed Universit y of Conjugate, PCV13 00:00:00 [facility] dical (Prevnar 13) Branch Polio (IPV/OPV) 2004-12-07 Completed Universit y of 00:00:00 [facility] Varicella 2004-12-07 Completed [facility] of (varivax)(chicken 00:00:00 [facility] edical pox) Branch DTAP 2004-12-07 Completed [facility] of 00:00:00 [facility] MMR 2004-12-07 Completed [facility] 00:00:00 [facility] Pneumococcal 13 2004-12-07 Completed Universit y of Conjugate, PCV13 00:00:00 [facility] dical (Prevnar 13) Branch Polio (IPV/OPV) 2004-12-07 Completed Univers[facility] y of 00:00:00 [facility] Varicella 2004-12-07 Completed [facility] of (varivax)(chicken 00:00:00 [facility] edical pox) Branch DTAP 2004-12-07 Completed [facility] of 00:00:00 [facility] MMR 2004-12-07 Completed [facility] 00:00:00 [facility] Pneumococcal 13 2004-12-07 Completed Universit y of Conjugate, PCV13 00:00:00 [facility] dical (Prevnar 13) Branch Polio (IPV/OPV) 2004-12-07 Completed [facility]it y of 00:00:00 [facility] Varicella 2004-12-07 Completed [facility] of (varivax)(chicken 00:00:00 [facility] edical pox) Branch DTAP 2004-12-07 Completed [facility] of 00:00:00 [facility] MMR 2004-12-07 Completed [facility] of 00:00:00 [facility] Pneumococcal 13 2004-12-07 Completed Universit y of Conjugate, PCV13 00:00:00 [facility] dical (Prevnar 13) Branch Polio (IPV/OPV) 2004-12-07 Completed [facility]it y of 00:00:00 [facility] Varicella 2004-12-07 Completed [facility] (varivax)(chicken 00:00:00 [place] [facility] pox) [facility] DTAP 2001-03-04 Completed [facility] 00:00:00 [facility] HIB 3 Dose Schedule 2001-03-04 Completed Unive rsity of 00:00:00 [facility] Hep B, Adol or Pedi 2001-03-04 Completed Unive rsity of Dosage 00:00:00 [facility] Polio (IPV/OPV) 2001-03-04 Completed Universit y of 00:00:00 [facility] DTAP 2001-03-04 Completed [facility] 00:00:00 [facility] HIB 3 Dose Schedule 2001-03-04 Completed Unive rsity of 00:00:00 [facility] Hep B, Adol or Pedi 2001-03-04 Completed Unive rsity of Dosage 00:00:00 [facility] Polio (IPV/OPV) 2001-03-04 Completed [facility]it y of 00:00:00 [facility] DTAP 2001-03-04 Completed [facility] 00:00:00 [facility] HIB 3 Dose Schedule 2001-03-04 Completed Unive rsity of 00:00:00 [facility] Hep B, Adol or Pedi 2001-03-04 Completed Unive rsity of Dosage 00:00:00 [facility] Polio (IPV/OPV) 2001-03-04 Completed [facility]it y of 00:00:00 [facility] DTAP 2001-03-04 Completed [facility] 00:00:00 [facility] HIB 3 Dose Schedule 2001-03-04 Completed Unive rsity of 00:00:00 [facility] Hep B, Adol or Pedi 2001-03-04 Completed Unive rsity of Dosage 00:00:00 [facility] Polio (IPV/OPV) 2001-03-04 Completed [facility]it y of 00:00:00 [facility] DTAP 2001-03-04 Completed [facility] 00:00:00 [facility] HIB 3 Dose Schedule 2001-03-04 Completed Unive rsity of 00:00:00 [facility] Hep B, Adol or Pedi 2001-03-04 Completed Unive rsity of Dosage 00:00:00 [facility] Polio (IPV/OPV) 2001-03-04 Completed Universit y of 00:00:00 [facility] DTAP 2001-03-04 Completed [facility] 00:00:00 [facility] HIB 3 Dose Schedule 2001-03-04 Completed Unive rsity of 00:00:00 [facility] Hep B, Adol or Pedi 2001-03-04 Completed Unive rsity of Dosage 00:00:00 [facility] Polio (IPV/OPV) 2001-03-04 Completed [facility]it y of 00:00:00 [facility] DTAP 2001-03-04 Completed [facility] 00:00:00 [facility] HIB 3 Dose Schedule 2001-03-04 Completed Unive rsity of 00:00:00 [facility] Hep B, Adol or Pedi 2001-03-04 Completed Unive rsity of Dosage 00:00:00 [facility] Polio (IPV/OPV) 2001-03-04 Completed Universit y of 00:00:00 [facility] DTAP 2001-03-04 Completed [facility] of 00:00:00 [facility] HIB 3 Dose Schedule 2001-03-04 Completed Unive rsity of 00:00:00 [facility] Hep B, Adol or Pedi 2001-03-04 Completed Unive rsity of Dosage 00:00:00 [facility] Polio (IPV/OPV) 2001-03-04 Completed [facility]it y of 00:00:00 [facility] DTAP 2001-03-04 Completed [facility] of 00:00:00 [facility] HIB 3 Dose Schedule 2001-03-04 Completed Unive rsity of 00:00:00 [facility] Hep B, Adol or Pedi 2001-03-04 Completed Unive rsity of Dosage 00:00:00 [facility] Polio (IPV/OPV) 2001-03-04 Completed [facility] of 00:00:00 [facility] DTAP 2001-03-04 Completed [facility] 00:00:00 [facility] HIB 3 Dose Schedule 2001-03-04 Completed Unive rsity of 00:00:00 [facility] Hep B, Adol or Pedi 2001-03-04 Completed Unive rsity of Dosage 00:00:00 [facility] Polio (IPV/OPV) 2001-03-04 Completed [facility]it y of 00:00:00 [facility] DTAP 2001-03-04 Completed [facility] 00:00:00 [facility] HIB 3 Dose Schedule 2001-03-04 Completed Unive rsity of 00:00:00 [facility] Hep B, Adol or Pedi 2001-03-04 Completed Unive rsity of Dosage 00:00:00 [facility] Polio (IPV/OPV) 2001-03-04 Completed Universit y of 00:00:00 [facility] DTAP 2001-03-04 Completed [facility] of 00:00:00 [facility] HIB 3 Dose Schedule 2001-03-04 Completed Unive rsity of 00:00:00 [facility] Hep B, Adol or Pedi 2001-03-04 Completed Unive rsity of Dosage 00:00:00 [facility] Polio (IPV/OPV) 2001-03-04 Completed [facility]it y of 00:00:00 [facility] DTAP 2001-03-04 Completed [facility] of 00:00:00 [facility] HIB 3 Dose Schedule 2001-03-04 Completed Unive rsity of 00:00:00 [facility] Hep B, Adol or Pedi 2001-03-04 Completed Unive rsity of Dosage 00:00:00 [facility] Polio (IPV/OPV) 2001-03-04 Completed [facility]it [facility] of 00:00:00 [facility] DTAP 2001-03-04 Completed [facility] of 00:00:00 [facility] HIB 3 Dose Schedule 2001-03-04 Completed Unive rsity of 00:00:00 [facility] Hep B, Adol or Pedi 2001-03-04 Completed Unive rsity of Dosage 00:00:00 [facility] Polio (IPV/OPV) 2001-03-04 Completed [facility]it [facility] of 00:00:00 [facility] DTAP 2001-03-04 Completed [facility] of 00:00:00 [facility] HIB 3 Dose Schedule 2001-03-04 Completed Unive rsity of 00:00:00 [facility] Hep B, Adol or Pedi 2001-03-04 Completed Unive rsity of Dosage 00:00:00 [facility] Polio (IPV/OPV) 2001-03-04 Completed [facility] of 00:00:00 [facility] DTAP 2001-03-04 Completed [facility] 00:00:00 [facility] HIB 3 Dose Schedule 2001-03-04 Completed Unive rsity of 00:00:00 [facility] Hep B, Adol or Pedi 2001-03-04 Completed Unive rsity of Dosage 00:00:00 [facility] Polio (IPV/OPV) 2001-03-04 Completed [facility] of 00:00:00 [facility] DTAP 2001-03-04 Completed [facility] 00:00:00 [facility] HIB 3 Dose Schedule 2001-03-04 Completed Unive rsity of 00:00:00 [facility] Hep B, Adol or Pedi 2001-03-04 Completed Unive rsity of Dosage 00:00:00 [facility] Polio (IPV/OPV) 2001-03-04 Completed [facility] of 00:00:00 [facility] DTAP 2001-03-04 Completed [facility] 00:00:00 [facility] HIB 3 Dose Schedule 2001-03-04 Completed Unive rsity of 00:00:00 [facility] Hep B, Adol or Pedi 2001-03-04 Completed Unive rsity of Dosage 00:00:00 [facility] Polio (IPV/OPV) 2001-03-04 Completed [facility] of 00:00:00 [facility] DTAP 2001-03-04 Completed [facility] 00:00:00 [facility] HIB 3 Dose Schedule 2001-03-04 Completed Unive rsity of 00:00:00 [facility] Hep B, Adol or Pedi 2001-03-04 Completed Unive rsity of Dosage 00:00:00 [facility] Polio (IPV/OPV) 2001-03-04 Completed [facility] 00:00:00 [facility] DTAP 2001-03-04 Completed [facility] 00:00:00 [facility] HIB 3 Dose Schedule 2001-03-04 Completed Unive rsity of 00:00:00 [facility] Hep B, Adol or Pedi 2001-03-04 Completed Unive rsity of Dosage 00:00:00 [facility] Polio (IPV/OPV) 2001-03-04 Completed [facility] 00:00:00 [facility] DTAP 2001-03-04 Completed [facility] 00:00:00 [facility] HIB 3 Dose Schedule 2001-03-04 Completed Unive rsity of 00:00:00 [facility] Hep B, Adol or Pedi 2001-03-04 Completed Unive rsity of Dosage 00:00:00 [facility] Polio (IPV/OPV) 2001-03-04 Completed Universit y of 00:00:00 [facility] DTAP 2001-03-04 Completed [facility] 00:00:00 [facility] HIB 3 Dose Schedule 2001-03-04 Completed [facility] 00:00:00 [facility] Hep B, Adol or Pedi 2001-03-04 Completed [facility] Dosage 00:00:00 [facility] Polio (IPV/OPV) 2001-03-04 Completed [facility] 00:00:00 [facility] DTAP 2001-03-04 Completed [facility] 00:00:00 [facility] HIB 3 Dose Schedule 2001-03-04 Completed [facility] 00:00:00 [facility] Hep B, Adol or Pedi 2001-03-04 Completed [facility] Dosage 00:00:00 [facility] Polio (IPV/OPV) 2001-03-04 Completed [facility] 00:00:00 [facility] DTAP 2000-03-05 Completed [facility] 00:00:00 [facility] HIB 3 Dose Schedule 2000-03-05 Completed [facility] 00:00:00 [facility] Hep B, Adol or Pedi 2000-03-05 Completed [facility] Dosage 00:00:00 [facility] Polio (IPV/OPV) 2000-03-05 Completed [facility] 00:00:00 [facility] DTAP 2000-03-05 Completed [facility] 00:00:00 [facility] HIB 3 Dose Schedule 2000-03-05 Completed [facility] 00:00:00 [facility] Hep B, Adol or Pedi 2000-03-05 Completed [facility] Dosage 00:00:00 [facility] Polio (IPV/OPV) 2000-03-05 Completed [facility] 00:00:00 [facility] DTAP 2000-03-05 Completed [facility] 00:00:00 [facility] HIB 3 Dose Schedule 2000-03-05 Completed [facility] 00:00:00 [facility] Hep B, Adol or Pedi 2000-03-05 Completed [facility] Dosage 00:00:00 [facility] Polio (IPV/OPV) 2000-03-05 Completed [facility] 00:00:00 [facility] DTAP 2000-03-05 Completed [facility] 00:00:00 [facility] HIB 3 Dose Schedule 2000-03-05 Completed [facility] 00:00:00 [facility] Hep B, Adol or Pedi 2000-03-05 Completed [facility] Dosage 00:00:00 [facility] Polio (IPV/OPV) 2000-03-05 Completed [facility] 00:00:00 [facility] DTAP 2000-03-05 Completed [facility] 00:00:00 [facility] HIB 3 Dose Schedule 2000-03-05 Completed [facility] 00:00:00 [facility] Hep B, Adol or Pedi 2000-03-05 Completed [facility] Dosage 00:00:00 [facility] Polio (IPV/OPV) 2000-03-05 Completed [facility] 00:00:00 [facility] DTAP 2000-03-05 Completed [facility] 00:00:00 [facility] HIB 3 Dose Schedule 2000-03-05 Completed [facility] 00:00:00 [facility] Hep B, Adol or Pedi 2000-03-05 Completed [facility] Dosage 00:00:00 [facility] Polio (IPV/OPV) 2000-03-05 Completed [facility] 00:00:00 [facility] DTAP 2000-03-05 Completed [facility] 00:00:00 [facility] HIB 3 Dose Schedule 2000-03-05 Completed [facility] 00:00:00 [facility] Hep B, Adol or Pedi 2000-03-05 Completed [facility] Dosage 00:00:00 [facility] Polio (IPV/OPV) 2000-03-05 Completed [facility] 00:00:00 [facility] DTAP 2000-03-05 Completed [facility] 00:00:00 [facility] HIB 3 Dose Schedule 2000-03-05 Completed [facility] 00:00:00 [facility] Hep B, Adol or Pedi 2000-03-05 Completed [facility] Dosage 00:00:00 [facility] Polio (IPV/OPV) 2000-03-05 Completed [facility] 00:00:00 [facility] DTAP 2000-03-05 Completed [facility] 00:00:00 [facility] HIB 3 Dose Schedule 2000-03-05 Completed [facility] 00:00:00 [facility] Hep B, Adol or Pedi 2000-03-05 Completed [facility] Dosage 00:00:00 [facility] Polio (IPV/OPV) 2000-03-05 Completed [facility] 00:00:00 [facility] DTAP 2000-03-05 Completed [facility] 00:00:00 [facility] HIB 3 Dose Schedule 2000-03-05 Completed [facility] 00:00:00 [facility] Hep B, Adol or Pedi 2000-03-05 Completed [facility] Dosage 00:00:00 [facility] Polio (IPV/OPV) 2000-03-05 Completed [facility] 00:00:00 [facility] DTAP 2000-03-05 Completed [facility] 00:00:00 [facility] HIB 3 Dose Schedule 2000-03-05 Completed [facility] 00:00:00 [facility] Hep B, Adol or Pedi 2000-03-05 Completed [facility] Dosage 00:00:00 [facility] Polio (IPV/OPV) 2000-03-05 Completed [facility] 00:00:00 [facility] DTAP 2000-03-05 Completed [facility] 00:00:00 [facility] HIB 3 Dose Schedule 2000-03-05 Completed [facility] 00:00:00 [facility] Hep B, Adol or Pedi 2000-03-05 Completed [facility] Dosage 00:00:00 [facility] Polio (IPV/OPV) 2000-03-05 Completed [facility] 00:00:00 [facility] DTAP 2000-03-05 Completed [facility] 00:00:00 [facility] HIB 3 Dose Schedule 2000-03-05 Completed [facility] 00:00:00 [facility] Hep B, Adol or Pedi 2000-03-05 Completed [facility] Dosage 00:00:00 [facility] Polio (IPV/OPV) 2000-03-05 Completed [facility] 00:00:00 [facility] DTAP 2000-03-05 Completed [facility] 00:00:00 [facility] HIB 3 Dose Schedule 2000-03-05 Completed [facility] 00:00:00 [facility] Hep B, Adol or Pedi 2000-03-05 Completed [facility] Dosage 00:00:00 [facility] Polio (IPV/OPV) 2000-03-05 Completed [facility] 00:00:00 [facility] DTAP 2000-03-05 Completed [facility] 00:00:00 [facility] HIB 3 Dose Schedule 2000-03-05 Completed [facility] 00:00:00 [facility] Hep B, Adol or Pedi 2000-03-05 Completed [facility] Dosage 00:00:00 [facility] Polio (IPV/OPV) 2000-03-05 Completed [facility] 00:00:00 [facility] DTAP 2000-03-05 Completed [facility] 00:00:00 [facility] HIB 3 Dose Schedule 2000-03-05 Completed [facility] 00:00:00 [facility] Hep B, Adol or Pedi 2000-03-05 Completed [facility] Dosage 00:00:00 [facility] Polio (IPV/OPV) 2000-03-05 Completed [facility] 00:00:00 [facility] DTAP 2000-03-05 Completed [facility] 00:00:00 [facility] HIB 3 Dose Schedule 2000-03-05 Completed [facility] 00:00:00 [facility] Hep B, Adol or Pedi 2000-03-05 Completed [facility] Dosage 00:00:00 [facility] Polio (IPV/OPV) 2000-03-05 Completed [facility] 00:00:00 [facility] DTAP 2000-03-05 Completed [facility] 00:00:00 [facility] HIB 3 Dose Schedule 2000-03-05 Completed [facility] 00:00:00 [facility] Hep B, Adol or Pedi 2000-03-05 Completed [facility] Dosage 00:00:00 [facility] Polio (IPV/OPV) 2000-03-05 Completed [facility] 00:00:00 [facility] DTAP 2000-03-05 Completed [facility] 00:00:00 [facility] HIB 3 Dose Schedule 2000-03-05 Completed [facility] 00:00:00 [facility] Hep B, Adol or Pedi 2000-03-05 Completed [facility] Dosage 00:00:00 [facility] Polio (IPV/OPV) 2000-03-05 Completed [facility] 00:00:00 [facility] DTAP 2000-03-05 Completed [facility] 00:00:00 [facility] HIB 3 Dose Schedule 2000-03-05 Completed [facility] 00:00:00 [facility] Hep B, Adol or Pedi 2000-03-05 Completed [facility] Dosage 00:00:00 [facility] Polio (IPV/OPV) 2000-03-05 Completed [facility] 00:00:00 [facility] DTAP 2000-03-05 Completed [facility] 00:00:00 [facility] HIB 3 Dose Schedule 2000-03-05 Completed [facility] 00:00:00 [facility] Hep B, Adol or Pedi 2000-03-05 Completed [facility] Dosage 00:00:00 [facility] Polio (IPV/OPV) 2000-03-05 Completed [facility] 00:00:00 [facility] DTAP 2000-03-05 Completed [facility] 00:00:00 [facility] HIB 3 Dose Schedule 2000-03-05 Completed [facility] 00:00:00 [facility] Hep B, Adol or Pedi 2000-03-05 Completed [facility] Dosage 00:00:00 [facility] Polio (IPV/OPV) 2000-03-05 Completed [facility] 00:00:00 [facility] DTAP 2000-03-05 Completed [facility] 00:00:00 [facility] HIB 3 Dose Schedule 2000-03-05 Completed [facility] 00:00:00 [facility] Hep B, Adol or Pedi 2000-03-05 Completed [facility] Dosage 00:00:00 [facility] Polio (IPV/OPV) 2000-03-05 Completed [facility] 00:00:00 [facility] DTAP 1999 Completed [facility] 00:00:00 [facility] HIB 3 Dose Schedule 1999 Completed [facility] 00:00:00 [facility] Hep B, Adol or Pedi 1999 Completed [facility] Dosage 00:00:00 [facility] Polio (IPV/OPV) 1999 Completed [facility] 00:00:00 [facility] DTAP 1999 Completed [facility] 00:00:00 [facility] HIB 3 Dose Schedule 1999 Completed [facility] 00:00:00 [facility] Hep B, Adol or Pedi 1999 Completed [facility] Dosage 00:00:00 [facility] Polio (IPV/OPV) 1999 Completed [facility] 00:00:00 [facility] DTAP 1999 Completed [facility] 00:00:00 [facility] HIB 3 Dose Schedule 1999 Completed [facility] 00:00:00 [facility] Hep B, Adol or Pedi 1999 Completed [facility] Dosage 00:00:00 [facility] Polio (IPV/OPV) 1999 Completed [facility] 00:00:00 [facility] DTAP 1999 Completed [facility] 00:00:00 [facility] HIB 3 Dose Schedule 1999 Completed [facility] 00:00:00 [facility] Hep B, Adol or Pedi 1999 Completed [facility] Dosage 00:00:00 [facility] Polio (IPV/OPV) 1999 Completed [facility] 00:00:00 [facility] DTAP 1999 Completed [facility] 00:00:00 [facility] HIB 3 Dose Schedule 1999 Completed [facility] 00:00:00 [facility] Hep B, Adol or Pedi 1999 Completed [facility] Dosage 00:00:00 [facility] Polio (IPV/OPV) 1999 Completed [facility] 00:00:00 [facility] DTAP 1999 Completed [facility] 00:00:00 [facility] HIB 3 Dose Schedule 1999 Completed [facility] 00:00:00 [facility] Hep B, Adol or Pedi 1999 Completed [facility] Dosage 00:00:00 [facility] Polio (IPV/OPV) 1999 Completed [facility] 00:00:00 [facility] DTAP 1999 Completed [facility] 00:00:00 [facility] HIB 3 Dose Schedule 1999 Completed [facility] 00:00:00 [facility] Hep B, Adol or Pedi 1999 Completed [facility] Dosage 00:00:00 [facility] Polio (IPV/OPV) 1999 Completed [facility] 00:00:00 [facility] DTAP 1999 Completed [facility] 00:00:00 [facility] HIB 3 Dose Schedule 1999 Completed [facility] 00:00:00 [facility] Hep B, Adol or Pedi 1999 Completed [facility] Dosage 00:00:00 [facility] Polio (IPV/OPV) 1999 Completed [facility] 00:00:00 [facility] DTAP 1999 Completed [facility] 00:00:00 [facility] HIB 3 Dose Schedule 1999 Completed [facility] 00:00:00 [facility] Hep B, Adol or Pedi 1999 Completed [facility] Dosage 00:00:00 [facility] Polio (IPV/OPV) 1999 Completed [facility] 00:00:00 [facility] DTAP 1999 Completed [facility] 00:00:00 [facility] HIB 3 Dose Schedule 1999 Completed [facility] 00:00:00 [facility] Hep B, Adol or Pedi 1999 Completed [facility] Dosage 00:00:00 [facility] Polio (IPV/OPV) 1999 Completed [facility] 00:00:00 [facility] DTAP 1999 Completed [facility] 00:00:00 [facility] HIB 3 Dose Schedule 1999 Completed [facility] 00:00:00 [facility] Hep B, Adol or Pedi 1999 Completed [facility] Dosage 00:00:00 [facility] Polio (IPV/OPV) 1999 Completed [facility] 00:00:00 [facility] DTAP 1999 Completed [facility] 00:00:00 [facility] HIB 3 Dose Schedule 1999 Completed [facility] 00:00:00 [facility] Hep B, Adol or Pedi 1999 Completed [facility] of Dosage 00:00:00 [facility] Polio (IPV/OPV) 1999 Completed [facility] 00:00:00 [facility] DTAP 1999 Completed [facility] 00:00:00 [facility] HIB 3 Dose Schedule 1999 Completed [facility] 00:00:00 [facility] Hep B, Adol or Pedi 1999 Completed [facility] of Dosage 00:00:00 [facility] Polio (IPV/OPV) 1999 Completed [facility] 00:00:00 [facility] DTAP 1999 Completed [facility] 00:00:00 [facility] HIB 3 Dose Schedule 1999 Completed [facility] 00:00:00 [facility] Hep B, Adol or Pedi 1999 Completed [facility] Dosage 00:00:00 [facility] Polio (IPV/OPV) 1999 Completed [facility] 00:00:00 [facility] DTAP 1999 Completed [facility] 00:00:00 [facility] HIB 3 Dose Schedule 1999 Completed [facility] 00:00:00 [facility] Hep B, Adol or Pedi 1999 Completed [facility] Dosage 00:00:00 [facility] Polio (IPV/OPV) 1999 Completed [facility] 00:00:00 [facility] DTAP 1999 Completed [facility] 00:00:00 [facility] HIB 3 Dose Schedule 1999 Completed [facility] 00:00:00 [facility] Hep B, Adol or Pedi 1999 Completed [facility] of Dosage 00:00:00 [facility] Polio (IPV/OPV) 1999 Completed [facility] 00:00:00 [facility] DTAP 1999 Completed [facility] 00:00:00 [facility] HIB 3 Dose Schedule 1999 Completed [facility] 00:00:00 [facility] Hep B, Adol or Pedi 1999 Completed [facility] Dosage 00:00:00 [facility] Polio (IPV/OPV) 1999 Completed [facility] 00:00:00 [facility] DTAP 1999 Completed [facility] 00:00:00 [facility] HIB 3 Dose Schedule 1999 Completed [facility] 00:00:00 [facility] Hep B, Adol or Pedi 1999 Completed [facility] Dosage 00:00:00 [facility] Polio (IPV/OPV) 1999 Completed [facility] 00:00:00 [facility] DTAP 1999 Completed [facility] 00:00:00 [facility] HIB 3 Dose Schedule 1999 Completed [facility] 00:00:00 [facility] Hep B, Adol or Pedi 1999 Completed [facility] Dosage 00:00:00 [facility] Polio (IPV/OPV) 1999 Completed [facility] 00:00:00 [facility] DTAP 1999 Completed [facility] 00:00:00 [facility] HIB 3 Dose Schedule 1999 Completed [facility] 00:00:00 [facility] Hep B, Adol or Pedi 1999 Completed [facility] of Dosage 00:00:00 [facility] Polio (IPV/OPV) 1999 Completed [facility] 00:00:00 [facility] DTAP 1999 Completed [facility] 00:00:00 [facility] HIB 3 Dose Schedule 1999 Completed [facility] 00:00:00 [facility] Hep B, Adol or Pedi 1999 Completed [facility] of Dosage 00:00:00 [facility] Polio (IPV/OPV) 1999 Completed [facility] 00:00:00 [facility] DTAP 1999 Completed [facility] 00:00:00 [facility] HIB 3 Dose Schedule 1999 Completed [facility] 00:00:00 [facility] Hep B, Adol or Pedi 1999 Completed [facility] of Dosage 00:00:00 [facility] Polio (IPV/OPV) 1999 Completed [facility] 00:00:00 [facility] DTAP 1999 Completed [facility] 00:00:00 [facility] HIB 3 Dose Schedule 1999 Completed [facility] 00:00:00 [facility] Hep B, Adol or Pedi 1999 Completed [facility] Dosage 00:00:00 [facility] Polio (IPV/OPV) 1999 Completed [facility] 00:00:00 [facility] Vital Signs Vital Name Observation Time Observation Value Comments Source Heart rate 2022-07-02 16:04:00 87 /min [facility] Body temperature 2022-07-02 16:04:00 36.89 Radha [facility] Respiratory rate 2022-07-02 16:04:00 22 /min [facility] Body height 2022-07-02 16:04:00 165.1 cm [facility] Body weight 2022-07-02 16:04:00 101.833 kg [facility] BMI 2022-07-02 16:04:00 37.36 kg/m2 [facility] Oxygen saturation in 2022-07-02 16:04:00 99 /min [facility] of Arterial blood by [facility] Systolic blood 2021-09-13 07:00:00 121 mm[Hg] Univer [facility]ity of pressure [facility] Diastolic blood 2021-09-13 07:00:00 84 mm[Hg] [facility]ive [facility] of pressure [facility] Heart rate 2021-09-13 07:00:00 98 /min [facility] Respiratory rate 2021-09-13 07:00:00 20 /min [facility] Oxygen saturation in 2021-09-13 07:00:00 98 /min [facility] of Arterial blood by [facility] Body temperature 2021-09-13 05:34:00 37.61 Radha [facility] Body height 2021-09-13 05:34:00 162.6 cm [facility] Body weight 2021-09-13 05:34:00 111.131 kg [facility] BMI 2021-09-13 05:34:00 42.05 kg/m2 [facility] Systolic blood 2020-12-31 20:48:00 127 mm[Hg] Univer [facility] of pressure [facility] Diastolic blood 2020-12-31 20:48:00 96 mm[Hg] [facility] of pressure [facility] Heart rate 2020-12-31 20:48:00 83 /min Universi [...] 100 /min [facility] of Arterial blood by [facility] Systolic blood 2020-11-07 14:46:00 126 mm[Hg] [facility]iver [facility] of pressure [facility] Diastolic blood 2020-11-07 14:46:00 76 mm[Hg] [facility] pressure [facility] Heart rate 2020-11-07 14:46:00 92 /min [facility] Body temperature 2020-11-07 14:46:00 37 Radha [facility] Respiratory rate 2020-11-07 14:46:00 24 /min [facility] Body height 2020-11-07 14:46:00 162.6 cm [facility] Body weight 2020-11-07 14:46:00 113.581 kg [facility] BMI 2020-11-07 14:46:00 42.98 kg/m2 [...] 2020-10-17 18:10:00 162.6 cm [facility] Body weight 2020-10-17 18:10:00 117.113 kg [facility] BMI 2020-10-17 18:10:00 44.32 kg/m2 [facility] Systolic blood 2020-08-09 06:00:00 136 mm[Hg] Univer [facility] of pressure [facility] Diastolic blood 2020-08-09 06:00:00 75 mm[Hg] [facility] pressure [facility] Heart rate 2020-08-09 06:00:00 93 /min [facility] Respiratory rate 2020-08-09 06:00:00 18 /min [facility] Oxygen saturation in 2020-08-09 06:00:00 92 /min [facility] Arterial blood by [facility] Body temperature 2020-08-09 05:00:00 37.44 Radha [facility] Body height 2020-08-09 05:00:00 162.6 cm [facility] Body weight 2020-08-09 05:00:00 114.306 kg [facility] BMI 2020-08-09 05:00:00 43.26 kg/m2 [facility] Systolic blood 2020-01-08 07:00:00 137 mm[Hg] Un[facility] of pressure [facility] Diastolic blood 2020-01-08 07:00:00 82 mm[Hg] [facility] of pressure [facility] Heart rate 2020-01-08 07:00:00 80 /min [facility] Body temperature 2020-01-08 07:00:00 36.89 Radha [facility] Branch Respiratory rate 2020-01-08 07:00:00 11 /min [facility] [place] [facility] Oxygen saturation in 2020-01-08 07:00:00 95 /min [facility] Arterial blood by [place] [facility] Pulse oximetry Branch Body weight 2020-01-08 05:39:00 108.863 kg [facility] [place] [facility] Systolic blood 2020-01-08 07:00:00 137 mm[Hg] [facility] [place] [facility] Diastolic blood 2020-01-08 07:00:00 82 mm[Hg] Unive [facility] [place] [facility] Heart rate 2020-01-08 07:00:00 80 /min [facility] Body temperature 2020-01-08 07:00:00 36.89 Radha [facility] Res[facility] rate 2020-01-08 07:00:00 11 /min [facility] Oxygen saturation in 2020-01-08 07:00:00 95 /min [facility] Arterial blood by [facility] Pulse oximetry Branch Body weight 2020-01-08 05:39:00 108.863 kg [facility] Procedures Procedure Date / Time Performed Performing Clinician Sour e XR SPINE THORACIC 2 VW 2022-07-02 18:53:[address] [facility] XR ELBOW >3 VW LEFT 2022-07-02 18:53:16 Prakash Allan [facility] CONSENT/REFUSAL FOR 2022-07-02 15:56:23 Doctor Unassigned, No [facility] [place] [facility] TREATMENT CONSENT/REFUSAL FOR 2021-09-13 05:29:08 Doctor Unassigned, No [facility] [place] [facility] AND Name Medical Branch TREATMENT NOTICE OF PRIVACY 2021-09-13 05:28:35 Doctor Unassigned, No [facility] POCT TEST 2020-12-31 21:04:00 Perry Herndon [facility] URINALYSIS 2020-12-31 20:58:00 Perry Herndon [facility] CONSENT/REFUSAL FOR 2020-12-31 20:17:00 Doctor Unassigned, No [facility] [place] DIAGNOSIS AND [facility] [place] TREATMENT POCT TEST 2020-10-17 19:59:00 Felipa Briseno [facility] GARDASIL 9 (HPV 9V) 2020-10-17 19:16:48 Felipa Briseno [facility] VACCINE [facility] CONSENT/REFUSAL FOR 2020-10-17 17:25:15 Doctor Unassigned, No [facility] [place] [facility] AND Name Medical Branch TREATMENT ASSIGNMENT OF BENEFITS 2020-10-17 17:24:54 Doctor Unassigned, No [facility] BASIC METABOLIC PANEL 2020-08-09 05:20:00 Morena Benton [facility] (NA, K, CL, CO2, Medical Branch GLUCOSE, BUN, CREATININE, CA) CBC WITH DIFF 2020-08-09 05:20:[address] [facility] POCT TEST 2020-08-09 05:05:00 [facility]na [facility] URINALYSIS 2020-08-09 05:03:[address] [facility] NOTICE OF PRIVACY 2020-08-09 04:47:00 Doctor Unassigned, No Univ [facility] PRACTICES Name [facility] CONSENT/REFUSAL FOR 2020-08-09 04:46:34 Doctor Unassigned, No [facility] DIAGNOSIS AND Name [facility] TREATMENT XR CHEST 1 VW 2020-01-08 06:19:33 El Hussein [facility] LIPASE 2020-01-08 06:14:00 El Hussein [facility] TROPONIN I 2020-01-08 06:14:00 El Hussein [facility] HEPATIC FUNCTION PANEL 2020-01-08 06:14:00 El Hussein [facility] ([id number]) [facility] (ALB,T.PRO,BILI T,BU/BC,ALT,AST,ALK PHOS) BASIC METABOLIC PANEL 2020-01-08 06:14:00 El Hussein [facility] (NA, K, CL, CO2, Medical Branch GLUCOSE, BUN, CREATININE, CA) CBC WITH DIFF 2020-01-08 06:14:00 El Hussein [facility] URINALYSIS 2020-01-08 06:14:00 El Hussein [facility] POCT TEST 2020-01-08 06:13:00 El Hussein [facility] EKG-12 LEAD 2020-01-08 05:54:25 El Hussein [facility] Encounters Start End Encounter Admission Attending Care Care Encounter Source Date/Time Date/Time Type Type Clinicians Facility Department ID 2021-04-02 Emergency [facility] [id number] [facility] 2022-07-02 2022-07-02 Emergency X [facility] ERT [id number] Univers 10:07:00 14:07:00 PRAKASH [facility] 2022-07-02 2022-07-[address] [facility] [id number] Univers 10:07:00 14:07:00 Prakash MARRERO [id number] i ty of [place] 4.2.7.2.686 [facility] [id number] [address] 2022-07-02 2022-07-02 Orders Doctor MARYSOL 1.2.840.114 [id number] Univers 00:00:00 00:00:00 Only Unassigned, MARCIO [id number] ity of [place] [facility] 4.2.7.2.686 [place] [id number] [address] 2021-09-13 2021-09-13 Emergency X [facility] ERT [id number] Univers 00:42:00 02:04:00 PRAKASH [facility] 2021-09-13 2021-09-[address] [facility] [id number] Univers 00:42:00 02:04:00 Prakash MARRERO 350.1.13.10 i ty of [place] 4.2.7.2.686 [facility] [id number] [address] 2021-03-02 2021-03-02 [facility] 1.2.840.114 [id number] Univers 00:00:00 00:00:00 Felipa Messina STORE CLERK CASHIER [id number] ity of [facility] 4.2.7.2.686 [place] as MATERNAL [phone] Med ical & CHILD [address] [place] [address] 2021-02-19 2021-02-19 Outpatient R FINN [facility] [id number] Univers 08:15:00 08:15:00 FELIPA diehl f [facility] 2021-02-06 2021-02-06 Outpatient R FINN [facility] [id number] Univers 10:30:00 10:30:00 FELIPA ity o f [facility] 2020-12-31 2020-12-31 Emergency [facility], [facility] [id number] Univers 16:05:00 18:56:00 Annabella Marrero 350.1.13.10 ity of [place] 4.2.7.2.686 [place] [facility] [phone] [facility] [address] [place] 2020-12-25 2020-12-25 Telephone [facility] 1.2.840.114 [id number] Univers 00:00:00 00:00:00 Felipa C STORE CLERK CASHIER 350.1.13.10 ity of [facility] 4.2.7.2.686 [place] MATERNAL [phone] [facility] & CHILD [address] [place] [address] 2020-12-24 2020-12-24 Nurse Lise Garcia 1.2.840.114 [id number] Univers 00:00:00 00:00:00 Triage MARCIO 350.1.13.10 it y of [facility] 4.2.7.2.686 [place] [phone] [facility] [address] [place] 2020-11-07 2020-11-07 Office [facility] [id number] [id number] Univers 09:33:35 11:41:19 Visit Felipa C STORE CLERK CASHIER 350.1.13.10 ity of [facility] 4.2.7.2.686 [place] MATERNAL [id number] [facility] & [address] 2020-11-07 2020-11-07 Outpatient R FINN [facility] [id number] [facility] 09:30:00 09:30:00 FELIPA ity o f [facility] 2020-11-03 2020-11-03 Telephone [facility] 1.2.840.114 [id number] Univers 00:00:00 00:00:00 Felipa C STORE CLERK CASHIER 350.1.13.10 ity of [facility] 4.2.7.2.686 [place] MATERNAL [phone] [facility] & CHILD [address] [place] [address] 2020-11-02 2020-11-02 Telephone [facility] 1.2.840.114 [id number] Univers 00:00:00 00:00:00 Felipa C STORE CLERK CASHIER 350.1.13.10 ity of [facility] 4.2.7.2.686 [place] MATERNAL [id number] [facility] & CHILD [address] [place] [address] 2020-11-01 2020-11-01 [facility] [id number] Univers 00:00:00 00:00:00 Felipa C STORE CLERK CASHIER 350.1.13.10 ity of [facility] 4.2.7.2.686 [place] MATERNAL [id number] [address] 2020-11-01 2020-11-01 Letter DEON Jonas 1.2.840.114 [id number] Univers 00:00:00 00:00:00 (Out) Jake Westbrook [facility] 350.1.13.10 i ty of [facility] 4.2.7.2.686 [place] [id number] [address] 2020-10-27 2020-10-27 Outpatient R [facility] [id number] Univers 15:30:00 15:30:00 ity of [facility] 2020-10-19 2020-10-19 Telephone [facility] 1.2.840.114 [id number] Univers 00:00:00 00:00:00 Felipa C STORE CLERK CASHIER 350.1.13.10 ity of [facility] 4.2.7.2.686 [place] MATERNAL [phone] [facility] & CHILD [address] [place] [address] 2020-10-17 2020-10-17 Office [facility] [id number] Univers 12:46:36 14:56:59 Visit Felipa C STORE CLERK CASHIER 350.1.13.10 ity of [facility] 4.2.7.2.686 [place] MATERNAL [phone] [facility] CHILD [address] [place] [address] 2020-10-17 2020-10-17 [facility] [id number] Univers 13:00:00 13:00:00 FELIPA mills o f [facility] 2020-10-17 2020-10-17 Orders Doctor MARYSOL 1.2.840.114 [id number] Univers 00:00:00 00:00:00 Only Unassigned, MARCIO 350.1.13.10 ity of [place] [facility] 4.2.7.2.686 [place] [phone] [address] 2020-08-08 2020-08-09 Emergency [facility] 1.2.840.114 [id number] Univers 22:53:00 01:02:00 Morena Marrero 350.1.13.10 ity of [place] 4.2.7.2.686 [facility] [id number] [address] 2020-08-08 2020-08-08 Emergency X [facility] ERT [id number] Univers 22:53:00 22:53:00 MORENA mills [facility] 2020-08-08 2020-08-08 Orders Doctor MARYSOL 1.2.840.114 [id number] Univers 00:00:00 00:00:00 Only Unassigned, MARCIO 350.1.13.10 ity of [place] [facility] 4.2.7.2.686 [place] [id number] [address] 2020-01-08 2020-01-08 Emergency El Hussein [facility] 1.2.840.114 [id number] 00:31:00 02:30:00 T Priyank 350.1.13.10 [place] 4.2.7.2.686 [place] [id number] [facility] 2020-01-08 2020-01-08 Emergency El Hussein [facility] 1.2.840.114 [id number] Univers 00:31:00 02:30:00 T Priyank 350.1.13.10 i ty of [place] 4.2.7.2.686 [id number] [address] 2020-01-08 2020-01-08 Emergency X EL HUSSEIN [facility] ERT [id number] Univers 00:31:00 00:31:00 ity [facility] Results Test Description Test Time Test Comments Results Result Comments Source URINALYSIS 2020-12-31 21:40:37 Test Item Value Reference Range Interpretation Comme nts APPEARANCE (test code = Hazy Clear A 6586865699) COLOR (test code = 9384053048) Yellow Yellow PH (test code = 8651928741) 4.8-8.0 SP GRAVITY (test code = 1.003-1.030 5306827804) GLU U QUAL (test code = Normal Normal 3584597374) BLOOD (test code = 6180533857) 2+ Negative A KETONES (test code = 7257614246) Negative Negative PROTEIN (test code = 2887-8) Negative Negative UROBILIN (test code = Normal Normal 9593248508) BILIRUBIN (test code = Negative Negative 0382681243) NITRITE (test code = 3204320444) Negative Negative LEUK MAXIMINO (test code = Negative Negative 7433212649) RBC/HPF (test code = 3576345885) See_Comment [Automated message] The system which ge nerated this result transmit jill reference range: 0 - 3 HP F. The reference range was not used to interpret th is result as normal/abnormal . WBC/HPF (test code = 6979653291) See_Comment [Automated message] The system which ge nerated this result transmit jill reference range: 0 - 5 HP F. The reference range was not used to interpret th is result as normal/abnormal . BACTERIA (test code = Few Negative A 6357925126) MUCOUS (test code = 7384547018) Slight Negative LPF A SQ EPITH (test code = HPF 7013852983) HYAL CAST (test code = See_Comment [Aut omated message] The 3305018641) system which ge nerated this result transmit jill reference range: <=2 LPF. The reference range was not u sed to interpret this result as normal/abnormal . Lab Interpretation (test code = Abnormal 00251-4) [facility] [id number] 21:04:00 Test Item Value Reference Range Interpretation Comments POCT PREG (test code = 1605) negative On board controls acceptable with present C Line (test code = 3574) POCT PREG LOT # (test code = 3575) [id number] POCT PREG TEST DATE (test 06/01/2022 code = 3576) Lab Interpretation (test code = Normal 73983-4) [facility] [id number] 20:00:00 Test Item Value Reference Range Interpretation Comments POCT PREG (test code = 1605) Negative On board controls acceptable with C Yes Line (test code = 3574) POCT PREG LOT # (test code = 3575) POCT PREG TEST DATE (test code = 3576) [facility] [id number] 20:00:00 Test Item Value Reference Range Interpretation Comments POCT PREG (test code = 1605) Negative On board controls acceptable with C Yes Line (test code = 3574) POCT PREG LOT # (test code = 3575) POCT PREG TEST DATE (test code = 357) [facility]2021-[facility]-10 05:59:35 Test Item Value Reference Range Interpretation Comments APPEARANCE (test code = Clear Clear 7005592924) COLOR (test code = Yellow Yellow 0903894297) PH (test code = 4.8-8.0 3262687587) SP GRAVITY (test code = 1.003-1.030 2464252630) GLU U QUAL (test code = Normal Normal 2780710477) BLOOD (test code = 1+ Negative A 3388818192) KETONES (test code = Negative Negative 8236245690) PROTEIN (test code = Negative Negative 2887-8) UROBILIN (test code = Normal Normal 6090479908) BILIRUBIN (test code = Negative Negative 6879107373) NITRITE (test code = Negative Negative 0356932101) LEUK MAXIMINO (test code = Negative Negative 4514950050) RBC/HPF (test code = See_Comment [Autom ated message] 8600148143) The system [employer] generated this result transmitted ref erence range: 0 - 3 HP F. The reference range was not used to int erpret this result as normal/abnormal . WBC/HPF (test code = See_Comment [Autom ated message] 7022679542) The system [employer] generated this result transmitted ref erence range: 0 - 5 HP F. The reference range was not used to int erpret this result as normal/abnormal . BACTERIA (test code = Few Negative A 0798207011) MUCOUS (test code = Slight Negative LPF A 9136791688) SQ EPITH (test code = HPF 6215100754) Lab Interpretation (test Abnormal code = 70094-7) [facility] (NA, K, CL, CO2, GLUCOSE, BUN, CREATININE, CA)2020-08-09 05:38:20 Test Item Value Reference Range Interpretation Comments NA (test code = 137 mmol/L 135-145 6884752958) K (test code = 3.8 mmol/L 3.5-5.0 3225357089) CL (test code = 102 mmol/L 98-108 8583445769) CO2 TOTAL (test code = 26 mmol/L 23-31 6535140693) AGAP (test code = 2-16 0424417652) BUN (test code = 9 mg/dL 7-23 2559935865) GLUCOSE (test code = 83 mg/dL 70-110 0784948151) CREATININE (test code 0.67 mg/dL 0.50-1.04 = 8680809924) CALCIUM (test code = 9.4 mg/dL 8.6-10.6 7721464619) eGFR Calculation mL/min/1.73m2 (Non-) (test code = 8311457195) eGFR Calculation mL/min/1.73m2 () (test code = 4274645410) AVA (test code = AVA) Association of [...] or urine or abnormalities in imaging tests). [facility] [id number] 05:05:00 Test Item Value Reference Range Interpretation Comments POCT PREG (test code = 1605) neg On board controls acceptable with yes C Line (test code = 3574) POCT PREG LOT # (test code = 3575) [id number] POCT PREG TEST DATE (test 04/01/2022 code = 3576) Lab Interpretation (test code = Normal 43785-8) [facility] Dallas[facility] [id number] 06:59:00 Test Item Value Reference Range Interpretation Comments TROPONIN I (test <0.012 See_Comment [Automated code = 1620597395) message] The system which generated this result [...] ? Lab Interpretation Normal (test code = 00699-8) [facility] (NA, K, CL, CO2, GLUCOSE, BUN, CREATININE, CA)2020-01-08 06:48:00 Test Item Value Reference Range Interpretation Comments NA (test code = 138 mmol/L 135-145 8440837330) K (test code = 4.0 mmol/L 3.5-5 0773762856) CL (test code = 106 mmol/L 98-108 4981488131) CO2 TOTAL (test code = 24 mmol/L 23-31 2613465009) AGAP (test code = 2-16 5608702178) BUN (test code = 10 mg/dL 7-23 5393426104) GLUCOSE (test code = 91 mg/dL 70-110 5355629432) CREATININE (test code 0.64 mg/dL 0.5-1.04 = 3622748846) CALCIUM (test code = 9.3 mg/dL 8.6-10.6 1928112738) eGFR Calculation mL/min/1.73m2 (Non-) (test code = 8319195914) eGFR Calculation mL/min/1.73m2 () (test code = 2223372956) AVA (test code = AVA) Association of [...] or urine or abnormalities in imaging tests). [facility] (ALB, T.PRO, BILI T, BU/BC, ALT, AST, ALK PHOS)2020-01-08 06:48:00 Test Item Value Reference Range Interpretation Comments TOTAL BILI (test code = 1291946168) 0.2 mg/dL 0.1-1.1 BILI UNCON (test code = 4232618326) 0.4 mg/dL 0.1-1.1 BILI CONJ (test code = 9555342412) 0.0 mg/dL 0-0.3 T PROTEIN (test code = 9594567838) 7.4 g/dL 6.3-8.2 ALBUMIN (test code = 7751212370) 4.6 g/dL 3.5-5 ALK PHOS (test code = 8407761491) 45 U/L 34-122 ALTv (test code = 1742-6) 22 U/L 5-35 AST(SGOT) (test code = 6781596859) 27 U/L 13-40 Lab Interpretation (test code = Normal 26981-2) [facility] [id number] 06:48:00 Test Item Value Reference Range Interpretation Comments LIPASE (test code = 9578082835) 78 U/L 0-220 Lab Interpretation (test code = Normal 63941-6) [facility] Dallas[facility]inalysis2020-08-08 06:41:00 Test Item Value Reference Range Interpretation Comments APPEARANCE (test code = Clear Clear 4026146673) COLOR (test code = Colorless Yellow A 8609324120) PH (test code = 4.8-8.0 3987700845) SP GRAVITY (test code = 1.003-1.030 9134449614) GLU U QUAL (test code = Normal Normal 8273507380) BLOOD (test code = 1+ Negative A 5273884028) KETONES (test code = Negative Negative 3906576531) PROTEIN (test code = Negative Negative 2887-8) UROBILIN (test code = Normal Normal 1314556627) BILIRUBIN (test code = Negative Negative 2857538602) NITRITE (test code = Negative Negative 2622148367) LEUK MAXIMINO (test code = Negative Negative 4460180613) RBC/HPF (test code = See_Comment [Autom ated message] 3088309946) The system [employer] generated this result transmit jill reference range : 0 - 3 HPF. The refe rence range was not u sed to interpret th is result as normal/abnormal . WBC/HPF (test code = See_Comment [Autom ated message] 5098934617) The system [employer] generated this result transmit jill reference range : 0 - 5 HPF. The refe rence range was not u sed to interpret th is result as normal/abnormal . BACTERIA (test code = Few Negative A 5188644901) SQ EPITH (test code = HPF 6232372505) Lab Interpretation (test Abnormal code = 84136-9) [facility] with [id number] 06:31:00 Test Item Value Reference Range Interpretation [...] RDW-SD (test code = 39.7 fL 39-49.9 86247-2) RDW-CV (test code = 13.2 % 12-15.5 788-0) PLT (test code = See_Comment H [Automated 777-3) message] The sy stem which generated this result transmitted reference range : 166 - 358 10*3/ ?L. The reference r karishma was not used to interpret this result as normal/abnormal . MPV (test code = 10.2 fL 9.5-12.9 20524-4) NRBC/100 WBC (test See_Comment [Automat ed code = 3044969466) message] The system which generated this result transmitted reference range : 0.0 - 10.0 /100 WBCs. The refer ence range was not u sed to interpret th is result as normal/abnormal . NRBC x10^3 (test code <0.01 See_Comment [Auto mated = 8837856099) message] The s ystem which generated this result transmitted reference range : 10*3/?L. The reference range was not used to interpret this result as normal/abnormal . GRAN MAT (NEUT) % 48.6 % (test code = 770-8) IMM GRAN % (test code 0.60 % = 0649477904) LYMPH % (test code = 41.9 % 736-9) MONO % (test code = 6.3 % 5905-5) EOS % (test code = 2.2 % 713-8) BASO % (test code = 0.4 % 706-2) GRAN MAT x10^3(ANC) 5.09 10*3/uL 1.88-7.09 (test code = 4651467610) IMM GRAN x10^3 (test 0.06 10*3/uL 0-0.06 code = 8078078687) LYMPH x10^3 (test code 4.38 10*3/uL 1.32-3.29 H = 731-0) MONO x10^3 (test code 0.66 10*3/uL 0.33-0.92 = 742-7) EOS x10^3 (test code = 0.23 10*3/uL 0.03-0.39 711-2) BASO x10^3 (test code 0.04 10*3/uL 0.01-0.07 = 704-7) Lab Interpretation Abnormal (test code = 22868-2) [facility] [id number] 06:13:00 Test Item Value Reference Range Interpretation Comments POCT PREG (test code = 1605) negative On board controls acceptable with positive C Line (test code = 3574) POCT PREG LOT # (test code = 3575) [id number] POCT PREG TEST DATE (test code = 3576) Lab Interpretation (test code = Normal 59455-2) [facility]"
[2022-10-14 10:24] LABS: Absolute Lymphocytes (CBC) 1.8 K/uL (0.7-4.9); Hematocrit 38.8 % (36.0-45.0); Lymphocytes % 17.5 % (15.3-44.8); MCV 85.2 fL (80-100); MPV 8.3 fL (7.6-11.3); RBC Red Blood Cell Count 4.56 M/uL (3.86-4.86)
--- NOTE | 2022-10-14 10:27 | RAD REPORT ---
EXAM DESCRIPTION: US - Transvaginal OB - 10/14/2022 10:07 am CLINICAL HISTORY: ABD PAIN COMPARISON: No comparisons FINDINGS: No IUP identified. The uterus measures 5.8 cm. The endometrial echo complex measures 6 mil limeters. The right ovary measures 3.2 x 2.2 x 2.1 cm with volume of 7.6 cc. The left ovary measures 2.7 x 1.6 x 1.5 cm with volume of 3.5 cc. Bilateral ovarian blood flow is present. No adnexal masses or free fluid identified. IMPRESSION: No IUP identified. Therefore, cannot exclude early normal , early ectopic, or f iron first trimester . Bilateral ovarian blood flow.
[2022-10-14 10:43] LABS: BUN Blood Urea Nitrogen 13 mg/dL (7-18); Bicarbonate 26 mEq/L (21-32); Glomerular Filtration Rate 113 ml/min (=/>90); Glucose Level 94 mg/dL (74-106); Sodium Level 137 mEq/L (136-145)
[2022-10-14 10:48] LABS: HCG, Quantitative < 1 mIU/mL (1-3)
--- NOTE | 2022-10-14 11:13 | EDPHYS ---
Physician Documentation [facility] Name: Giesle Arechiga Age: 22 yrs Sex: Female : 2000 Arrival Date: 10/14/2022 Time: 09:03 Bed 13 Private MD: ED Physician Jose Munoz HPI: 10/14 10:02 This 22 yrs old Female presents to ER via Ambulatory with complaints of ms3 Vaginal Bleeding, Abdominal Pain. 10:02 22-year-old female with past medical history of diabetes presents for vaginal bleeding ms3 and abdominal pain that began day night. Patient states she is having abdominal cramping that she rates a 10/10. Patient states applying heating pad to her abdomen makes the pain better. Patient states her last menstrual period was September 02, 2022, patient is a -0-1-0.. Historical: - Allergies: 09:32 PENICILLINS; nj1 - PMHx: 09:32 Diabetes - NIDDM; nj1 - Immunization history:: Client reports having NOT received the Covid vaccine. - Social history:: Smoking status: Patient denies any tobacco usage or history of. ROS: 10:02 Positive for vaginal bleeding. ms3 10:02 Constitutional: Negative for fever, and chills. Neck: Negative for injury, pain, and swelling, Cardiovascular: Negative for chest pain, and palpitations. Respiratory: Negative for shortness of breath, cough, wheezing, and pleuritic chest pain, Abdomen/GI: Negative for abdominal pain, nausea, vomiting, diarrhea, and constipation, MS/Extremity: Negative for injury and deformity. 10:02 All other systems are negative. Exam: 10:02 Constitutional: This is a well developed, well nourished patient who is awake, alert, ms3 and in no acute distress. Head/Face: Normocephalic, atraumatic. Neck: Trachea midline, no cervical lymphadenopathy. Supple, full range of motion without nuchal rigidity, or vertebral point tenderness. No Meningismus. Chest/axilla: Normal chest wall appearance and motion. Nontender with no deformity. Cardiovascular: Regular rate and rhythm with a normal S1 and S2. No gallops, murmurs, or rubs. Normal PMI, no JVD. No pulse deficits. Respiratory: Lungs have equal breath sounds bilaterally, clear to auscultation and percussion. No rales, rhonchi or wheezes noted. No increased work of breathing, no retractions or nasal flaring. 10:02 Skin: Warm, dry with normal turgor. Normal color with no rashes, no lesions, and no evidence of cellulitis. 10:02 Abdomen/GI: Inspection: abdomen appears normal, Bowel sounds: normal, Palpation: mild abdominal tenderness, in the suprapubic area. Vital Signs: 09:29 BP 126 / 71; Pulse 91; Resp 18; Pulse Ox 99% on R/A; Weight 97.52 kg; Height 5 ft. 4 ko1 in. ; Pain 10/10; 11:21 BP 118 / 74; Pulse 88; Resp 16; Pulse Ox 99% ; ko1 09:29 Body Mass Index 36.90 (97.52 kg, 162.56 cm) ko1 09:29 Pain Scale: Adult ko1 MDM: 09:25 Patient medically screened. ms3 10:02 Differential diagnosis: dysfunctional uterine bleeding, threatened Ab, inevitable Ab, ms3 complete Ab, retained Ab, missed Ab, nonspecific abdominal pain, ruptured ectopic , urinary tract infection. 11:13 Data reviewed: vital signs, nurses notes, lab test result(s), radiologic studies, ms3 ultrasound. Care significantly affected by the following chronic conditions: Diabetes. Care significantly affected by the following Social Determinants of Health: Poor access to healthcare and/or lack of insurance. Counseling: I had a detailed discussion with the patient and/or guardian regarding: the historical points, exam findings, and any diagnostic results supporting the discharge/admit diagnosis, lab results, radiology results, the need for outpatient follow up, to return to the emergency department if symptoms worsen or persist or if there are any questions or concerns that arise at home. Special discussion: I discussed with the patient/guardian in detail that at this point there is no indication for admission to the hospital. It is understood, however, that if the symptoms persist or worsen the patient needs to return immediately for re-evaluation. ED course: Patient states she is needing to leave for a chiropractic appointment. Discussed labs and ultrasound with patient. Patient to follow-up with her director patient in 2 to 3 days. Patient understands and agrees with plan. All questions were answered. Return precautions discussed include worsening symptoms, or any other concerns.. 10/14 09:25 Order name: Abo/rh Typing; Complete Time: 11:07 ms3 10/14 09:25 Order name: Basic Metabolic Panel; Complete Time: 11:07 ms3 10/14 09:25 Order name: CBC with Diff; Complete Time: 10:36 ms3 10/14 09:25 Order name: Quantitative Hcg; Complete Time: 11:07 ms3 10/14 09:25 Order name: US Transvaginal Ob; Complete Time: 10:36 ms3 10/14 09:25 Order name: IV Saline Lock; Complete Time: 10:14 ms3 10/14 09:25 Order name: Labs collected and sent; Complete Time: 10:14 ms3 10/14 09:25 Order name: NPO; Complete Time: 10:14 ms3 Administered Medications: No medications were administered Disposition Summary: 10/14/22 11:13 Discharge Ordered Location: Home ms3 Condition: Stable ms3 Diagnosis - Complete or unspecified spontaneous without complication ms3 - Abnormal uterine and vaginal bleeding, unspecified ms3 - Lower abdominal pain, unspecified ms3 Followup: ms3 - With: Private Physician - When: 2 - 3 days - Reason: Recheck today's complaints Discharge Instructions: - Discharge Summary Sheet ms3 - Miscarriage ms3 Forms: - Medication Reconciliation Form ms3 - Thank You Letter ms3 - Antibiotic Education ms3 - Prescription Opioid Use ms3 - Work release form ko1 Signatures: Dispatcher [employer] Jose Scherer DO DO ms3 Indira Rashid, RN RN nj1
--- NOTE | 2022-10-14 11:13 | ER ---
Nurse's Notes [facility] Name: Gisele Arechiga Age: 22 yrs Sex: Female : 2000 Arrival Date: 10/14/2022 Time: 09:03 Bed 13 Private MD: Diagnosis: Complete or unspecified spontaneous without complication;Abnormal uterine and vaginal bleeding, unspecified;Lower abdominal pain, unspecified Presentation: 10/14 09:29 Chief complaint: Patient states: Vaginal bleeding that started day night along [facility] with cramping. Some home test were positive, other negatives last week. Last period was about a month ago. Coronavirus screen: Vaccine status: Patient reports being unvaccinated. Ebola Screen: Patient denies travel to an Ebola-affected area in the 21 days before illness onset. Initial Sepsis Screen: Does the patient meet any 2 criteria? No. Patient's initial sepsis screen is negative. Does the patient have a suspected source of infection? No. Patient's initial sepsis screen is negative. Risk Assessment: Do you want to hurt yourself or someone else? Patient reports no desire to harm self or others. Onset of symptoms was October 12, 2022. 09:29 Method Of Arrival: Ambulatory [facility] 09:29 Acuity: IRIS 3 nj1 Historical: - Allergies: 09:32 PENICILLINS; nj1 - PMHx: 09:32 Diabetes - NIDDM; nj1 - Immunization history:: Client reports having NOT received the Covid vaccine. - Social history:: Smoking status: Patient denies any tobacco usage or history of. Screenin:[address] [facility] ED Fall Risk Assessment (Adult) History of falling in the last 3 months, ko1 including since admission No falls in past 3 months (0 pts) Confusion or Disorientation No (0 pts) Intoxicated or Sedated No (0 pts) Impaired Gait No (0 pts) Mobility Assist Device Used No (0 pt) Altered Elimination No (0 pt) Score/Fall Risk Level 0 - 2 = Low Risk Oriented to surroundings, Maintained a safe environment, Educated pt \T\ family on fall prevention, incl call for assistance when getting out of bed, Assessed \T\ reinforced patient's understanding of fall precautions, Provided non-skid footwear, Hourly rounding (assess needs \T\ fall precautionary measures) done, Used ambulatory aids as needed (educated on \T\ assisted with), Used gait belt as appropriate. Abuse screen: Denies threats or abuse. Denies injuries from another. Nutritional screening: No deficits noted. Tuberculosis screening: No symptoms or risk factors identified. Assessment: 10:00 General: Appears in no apparent distress. comfortable, Behavior is calm, cooperative, ko1 appropriate for age. Pain: Complains of pain in suprapubic area. Neuro: No deficits noted. Cardiovascular: No deficits noted. Respiratory: No deficits noted. GI: No deficits noted. : none Reports vaginal bleeding that is heavy flow. EENT: No deficits noted. Derm: No deficits noted. Musculoskeletal: No deficits noted. Vital Signs: 09:29 BP 126 / 71; Pulse 91; Resp 18; Pulse Ox 99% on R/A; Weight 97.52 kg; Height 5 ft. 4 ko1 in. ; Pain 1010; 11:21 BP 118 / 74; Pulse 88; Resp 16; Pulse Ox 99% ; ko1 09:29 Body Mass Index 36.90 (97.52 kg, 162.56 cm) ko1 09:29 Pain Scale: Adult ko1 ED Course: 09:05 Patient arrived in ED. mr 09:09 Jose Munoz DO is Attending Physician. ms3 09:32 Triage completed. nj1 09:33 Arm band placed on right wrist. nj1 09:59 US Transvaginal Ob In Process Unspecified. EDMS 10:00 Patient has correct armband on for positive identification. Bed in low position. Call ko1 light in reach. Pulse ox on. NIBP on. Warm blanket given. 10:00 No provider procedures requiring assistance completed. Inserted saline lock: 20 gauge ko1 in right antecubital area, using aseptic technique. Blood collected. 10:01 Candice Mendez, RN is Primary Nurse. ko1 10:14 Abo/rh Typing Sent. ko1 10:14 Basic Metabolic Panel Sent. ko1 10:14 CBC with Diff Sent. ko1 11:25 IV discontinued, intact, bleeding controlled, No redness/swelling at site. Pressure ko1 dressing applied. Administered Medications: No medications were administered Medication: 10:00 VIS not applicable for this client. ko1 Outcome: 11:13 Discharge ordered by . ms3 11:25 Discharged to home ambulatory. ko1 11:25 Condition: stable 11:25 Discharge instructions given to patient, Instructed on discharge instructions, follow up and referral plans. Demonstrated understanding of instructions, follow-up care. 11:26 Patient left the ED. ko1 Signatures: Dispatcher [employer] DOCLisa TobarJose, DO ms3 Candice Mendez, RN RN ko1 Indira Rashid RN RN nj1 Corrections: (The following items were deleted from the chart) 11:21 09:29 BP 126 / 71; Pulse 91bpm; Resp 87bpm; Pulse Ox 99% RA; 97.52 kg; Height 5 ft. 4 ko1 in.; BMI: 36.9; Pain 1010, Adult; nj1
[2022-10-14 11:32] VITALS: O2SAT 99
[2022-10-14 11:34] VITALS: BP 118/74
== END 2022-10-14 11:26 | disposition home or self-care (01) ==
LOC: ER 09:03
DX: O03.9 Complete or unspecified spontaneous abortion without complication (principal); R10.30 Lower abdominal pain, unspecified; E11.9 Type 2 diabetes mellitus without complications; Z88.0 Allergy status to penicillin; Z28.310 Unvaccinated for COVID-19
CPT/HCPCS: 36415; 76817; 80048; 84702; 85025; 86900; 86901; 99284

== ENCOUNTER 2022-11-25 09:57 | Emergency (ER) | payer SELFPAY ==
--- OUTSIDE RECORDS SUMMARY | 2022-11-25 10:17 | XMS REPORT | Continuity of Care Document ---
:2000 Author Organization [facility] t Address [address] [facility] [address] [place] [address] Care Team Providers Name Role Phone CHUY ULLOA Primary Care Physician Unavailable PRAKASH ALLAN Attending Clinician Unavailable Prakash Wells Attending Clinician Doctor Unassigned, [place] Attending Clinician Unavailable Felipa Castellanos Attending Clinician [phone] FELIPA BRISENO Attending Clinician Unavailable Annabella [...] [facility] Branch Allergies, Adverse Reactions, Alerts Allergy Allergy Status Severity Reaction(s) Onset Inactive Treating Comm ents Source Name Type Date Date Clinician Cat Propensi Active Hives Univers Dander ty to 5-18 ity of adverse 00:00: [place] reaction 00 Medical s Branch CAT DRUG Active Hives Univers DANDER INGREDI 18 ity of 00:00: [place] [facility] Penicill Propensi Active Hives Univer s ins ty to 9-16 ity of adverse 00:00: [place] reaction 00 Medical s Branch PENICILL Drug Active Hives Univers INS Class 9-16 ity of 00:00: [place] 00 Medical Branch Penicill Propensi Active Hives Univer s ins ty to 9-16 ity of adverse 00:00: [place] reaction 00 Medical s Branch Social History Social Habit Start Date Stop Date Quantity Comments Source History of tobacco Cigarette Smoker University of use [facility] Branch History [facility] o f Alcohol Frequency [facility] Branch History [facility] o f Alcohol Std Drinks [facility] Branch History [facility] o f Alcohol Binge [facility] Exposure to 2022-06-22 2022-07-02 Not sure University of SARS-CoV-2 (event) 00:00:00 12:36:00 [facility] Branch Alcohol intake 2022-07-02 2022-07-02 Current drinker Unive rsity of 00:00:00 00:00:00 of alcohol [facility] (finding) Branch Cigarettes smoked 2020-10-17 2020-10-17 Univers ity of current (pack per 00:00:00 00:00:00 [facility] ) - Reported Branch Tobacco use and 2020-10-17 2020-10-17 Former smokeless Uni versity of exposure 00:00:00 00:00:00 tobacco user [place] [facility] Tobacco Comment 2020-10-17 2020-10-17 8-10 cigarettes a Un iversity of 00:00:00 00:00:00 day [facility] Alcohol Comment 2020-10-17 2020-10-17 socially Universit y of 00:00:00 00:00:00 [facility] Sex Assigned At [birth year] Universit y of 00:00:00 00:00:00 [facility] Smoking Status Start Date Stop Date Source Smokes tobacco daily 2020-10-17 00:00:00 Univers ity [facility] Unknown if ever smoked [facility] y [facility] Medications Ordered Filled Start Stop [...] No 450mg 450 mg, U nivers (CLEOCIN -14 04-14 Oral, ity of HCL) 08:00: 06:55 [...] cyst allergic to PCN clindamycin 2021- No [id number] 450mg Take 3 Univers 150 mg -14 04-25 capsules ity of capsule 00:00: 04:59 by mouth 3 Wander as 00 :00 (three) Medical times [place] daily for 10 days. norgestimat Yes [id number] 1{tbl} Take 1 Univers e-ethinyl 6-08 tablet by ity o f estradioL 00:00: mouth [place] (ORTHO 00 daily. Medical TRI-CYCLEN, Branch 28,) 0.18/0.215/ 0.25 mg-35 mcg (28) tablet norgestimat 2020-0 Yes [id number] 1{tbl} Take 1 Univers e-ethinyl 6-08 tablet by ity o f estradioL 00:00: mouth [place] (ORTHO 00 daily. [place] [address],) 0.18/0.215/ 0.25 mg-35 mcg (28) tablet norgestimat 2020-0 Yes [id number] 1{tbl} Take 1 Univers e-ethinyl 6-08 tablet by ity o f estradioL 00:00: mouth [place] (ORTHO 00 daily. [place] [address],) 0.18/0.215/ 0.25 mg-35 mcg (28) tablet norgestimat 2020-0 Yes [id number] 1{tbl} Take 1 Univers e-ethinyl 6-08 tablet by ity o f estradioL 00:00: mouth [place] (ORTHO 00 daily. [place] [address],) 0.18/0.215/ 0.25 mg-35 mcg (28) tablet norgestimat 2020-0 Yes [id number] 1{tbl} Take 1 Univers e-ethinyl 6-08 tablet by ity o f estradioL 00:00: mouth [place] (ORTHO 00 daily. [place] [address],) 0.18/0.215/ 0.25 mg-35 mcg (28) tablet norgestimat 2020-0 Yes [id number] 1{tbl} Take 1 Univers e-ethinyl 6-08 tablet by ity o f estradioL 00:00: mouth [place] (ORTHO 00 daily. [place] [address],) 0.18/0.215/ 0.25 mg-35 mcg (28) tablet norgestimat 2020-0 Yes [id number] 1{tbl} Take 1 Univers e-ethinyl 6-08 tablet by ity o f estradioL 00:00: mouth [place] (ORTHO 00 daily. [place] [address],) 0.18/0.215/ 0.25 mg-35 mcg (28) tablet norgestimat 2020-0 Yes [id number] 1{tbl} Take 1 Univers e-ethinyl 6-08 tablet by ity o f estradioL 00:00: mouth [place] (ORTHO 00 daily. Medical TRI-CYCLEN, Branch 28,) 0.18/0.215/ 0.25 mg-35 mcg (28) tablet norgestimat 2020-0 Yes [id number] 1{tbl} Take 1 Univers e-ethinyl 6-08 tablet by ity o f estradioL 00:00: mouth [place] (ORTHO 00 daily. Medical TRI-CYCLEN, Branch 28,) 0.18/0.215/ 0.25 mg-35 mcg (28) tablet medroxyPROG 2020-0 2020- No [id number] 10mg Take 1 Univers ESTERone 5-20 05-31 tablet by ity o f (PROVERA) 00:00: 04:59 mouth [place] 10 mg 00 :00 daily for Medical tablet 10 days. [place] medroxyPROG 2020-0 2020- No [id number] 10mg Take 1 Univers ESTERone 5-20 05-31 tablet by ity o f (PROVERA) 00:00: 04:59 mouth [place] 10 mg 00 :00 daily for Medical tablet 10 days. [place] medroxyPROG 2020-0 2020- No [id number] 10mg Take 1 Univers ESTERone 5-20 05-31 tablet by ity o f (PROVERA) 00:00: 04:59 mouth [place] 10 mg 00 :00 daily for Medical tablet 10 days. [place] medroxyPROG 2020-0 2020- No [id number] 10mg Take 1 Univers ESTERone 5-20 05-31 tablet by ity o f (PROVERA) 00:00: 04:59 mouth [place] 10 mg 00 :00 daily for Medical tablet 10 days. [place] phentermine 2020-0 Yes 37.5mg Take 37.5 Univers 37.5 mg 5-18 mg by ity of capsule 18:21: mouth [place] 18 every Medical morning. Branch phentermine 2020-0 Yes 37.5mg Take 37.5 Univers 37.5 mg 5-18 mg by ity of capsule 18:21: mouth [place] 18 every Medical morning. [place] phentermine 2020-0 Yes 37.5mg Take 37.5 Univers [...] 13:21: mouth [place] 18 every Medical morning. [place] ketorolac 2020- No 30mg 30 mg, Unive rs (TORADOL) 3-10 03-10 Slow IV ity of injection 05:45: 05:42 Push, [place] 30 mg 00 :00 ONCE, 1 Medical dose, Melissa [place] 08/08/20 at 2345, SHALOM
Fa culty [...] sulfamethox 2018-0 Yes 2{tbl} Take 2 Un fbarice azole-trime 9-16 tablets by it y of [...] Date Status Commen ts Source Name Name [facility] 2020-10-17 Completed University of 00:00:00 [facility] HPV9 2020-10-17 Completed University of 00:00:00 [facility] HPV9 2020-10-17 Completed University of 00:00:00 [facility] HPV9 2020-10-17 Completed University of 00:00:00 [facility] HPV9 2020-10-17 Completed University of 00:00:00 [facility] HPV9 2020-10-17 Completed University of 00:00:00 [facility] HPV9 2020-10-17 Completed University of 00:00:00 [facility] HPV9 2020-10-17 Completed University of 00:00:00 [facility] HPV9 2020-10-17 Completed University of 00:00:00 [facility] HPV9 2020-10-17 Completed University of 00:00:00 [facility] HPV9 2020-10-17 Completed University of 00:00:00 [facility] HPV9 2020-10-17 Completed University of 00:00:00 [facility] HPV9 2020-10-17 Completed University of 00:00:00 [facility] HPV9 2020-10-17 Completed University of 00:00:00 [facility] HPV9 2020-10-17 Completed University of 00:00:00 [facility] HPV9 2020-10-17 Completed University of 00:00:00 [facility] HPV9 2020-10-17 Completed University of 00:00:00 [facility] HPV9 2020-10-17 Completed University of 00:00:00 [place] [facility] HPV9 2020-10-17 Completed University of 00:00:00 [place] [facility] HPV9 2020-10-17 Completed University of 00:00:00 [place] [facility] HPV9 2020-10-17 Completed University of 00:00:00 [place] [facility] HPV9 2020-10-17 Completed University of 00:00:00 [place] [facility] HPV9 2020-10-17 Completed University of 00:00:00 [place] [facility] HPV 2018-09-15 Completed University of 00:00:00 [place] [facility] Meningococcal 2018-09-15 Completed University of Vaccine 00:00:00 [place] [facility] HPV 2018-09-15 Completed University of 00:00:00 [place] [facility] Meningococcal 2018-09-15 Completed University of Vaccine 00:00:00 [place] [facility] HPV 2018-09-15 Completed University of 00:00:00 [facility] Meningococcal 2018-09-15 Completed University of Vaccine 00:00:00 [facility] HPV 2018-09-15 Completed University of 00:00:00 [facility] Meningococcal 2018-09-15 Completed University of Vaccine 00:00:00 [place] [facility] HPV 2018-09-15 Completed University of 00:00:00 [place] [facility] Meningococcal 2018-09-15 Completed University of Vaccine 00:00:00 [place] [facility] HPV 2018-09-15 Completed University of 00:00:00 [place] [facility] Meningococcal 2018-09-15 Completed University of Vaccine 00:00:00 [facility] HPV 2018-09-15 Completed University of 00:00:00 [place] [facility] Meningococcal 2018-09-15 Completed University of Vaccine 00:00:00 [place] [facility] HPV 2018-09-15 Completed University of 00:00:00 [place] [facility] Meningococcal 2018-09-15 Completed University of Vaccine 00:00:00 [place] [facility] HPV 2018-09-15 Completed University of 00:00:00 [place] [facility] Meningococcal 2018-09-15 Completed University of Vaccine 00:00:00 [place] [facility] HPV 2018-09-15 Completed University of 00:00:00 [place] [facility] Meningococcal 2018-09-15 Completed University of Vaccine 00:00:00 [place] [facility] HPV 2018-09-15 Completed University of 00:00:00 [place] [facility] Meningococcal 2018-09-15 Completed University of Vaccine 00:00:00 [place] [facility] HPV 2018-09-15 Completed University of 00:00:00 [facility] Meningococcal 2018-09-15 Completed University of Vaccine 00:00:00 [facility] HPV 2018-09-15 Completed University of 00:00:00 [facility] Meningococcal 2018-09-15 Completed University of Vaccine 00:00:00 [facility] HPV 2018-09-15 Completed University of 00:00:00 [facility] Meningococcal 2018-09-15 Completed University of Vaccine 00:00:00 [facility] HPV 2018-09-15 Completed University of 00:00:00 [facility] Meningococcal 2018-09-15 Completed University of Vaccine 00:00:00 [facility] HPV 2018-09-15 Completed University of 00:00:00 [facility] Meningococcal 2018-09-15 Completed University of Vaccine 00:00:00 [facility] HPV 2018-09-15 Completed University of 00:00:00 [facility] Meningococcal 2018-09-15 Completed University of Vaccine 00:00:00 [facility] HPV 2018-09-15 Completed University of 00:00:00 [facility] Meningococcal 2018-09-15 Completed University of Vaccine 00:00:00 [facility] HPV 2018-09-15 Completed University of 00:00:00 [facility] Meningococcal 2018-09-15 Completed University of Vaccine 00:00:00 [facility] HPV 2018-09-15 Completed University of 00:00:00 [facility] Meningococcal 2018-09-15 Completed University of Vaccine 00:00:00 [facility] HPV 2018-09-15 Completed University of 00:00:00 [facility] Meningococcal 2018-09-15 Completed University of Vaccine 00:00:00 [facility] HPV 2018-09-15 Completed University of 00:00:00 [facility] Meningococcal 2018-09-15 Completed University of Vaccine 00:00:00 [facility] HPV 2018-09-15 Completed University of 00:00:00 [facility] Meningococcal 2018-09-15 Completed University of Vaccine 00:00:00 [facility] HEPATITIS A 2012-01-21 Completed University of 00:00:00 [facility] Meningococcal 2012-01-21 Completed University of Vaccine 00:00:00 [facility] TDAP 2012-01-21 Completed University of 00:00:00 [facility] Varicella 2012-01-21 Completed University of (varivax)(chicken 00:00:00 [place] M edical pox) Branch HEPATITIS A 2012-01-21 Completed University of 00:00:00 [facility] Meningococcal 2012-01-21 Completed University of Vaccine 00:00:00 [facility] TDAP 2012-01-21 Completed University of 00:00:00 [facility] Varicella 2012-01-21 Completed University of (varivax)(chicken 00:00:00 [place] M edical pox) Branch HEPATITIS A 2012-01-21 Completed University of 00:00:00 [facility] Meningococcal 2012-01-21 Completed University of Vaccine 00:00:00 [facility] TDAP 2012-01-21 Completed University of 00:00:00 [facility] Varicella 2012-01-21 Completed University of (varivax)(chicken 00:00:00 [place] M edical pox) Branch HEPATITIS A 2012-01-21 Completed University of 00:00:00 [facility] Meningococcal 2012-01-21 Completed University of Vaccine 00:00:00 [facility] TDAP 2012-01-21 Completed University of 00:00:00 [facility] Varicella 2012-01-21 Completed University of (varivax)(chicken 00:00:00 [place] [facility] pox) Branch HEPATITIS A 2012-01-21 Completed University of 00:00:00 [facility] Meningococcal 2012-01-21 Completed University of Vaccine 00:00:00 [facility] TDAP 2012-01-21 Completed University of 00:00:00 [facility] Varicella 2012-01-21 Completed University of (varivax)(chicken 00:00:00 [place] M edical pox) Branch HEPATITIS A 2012-01-21 Completed University of 00:00:00 [facility] Meningococcal 2012-01-21 Completed University of Vaccine 00:00:00 [facility] TDAP 2012-01-21 Completed University of 00:00:00 [facility] Varicella 2012-01-21 Completed University of (varivax)(chicken 00:00:00 [place] [facility] pox) Branch HEPATITIS A 2012-01-21 Completed University of 00:00:00 [facility] Meningococcal 2012-01-21 Completed University of Vaccine 00:00:00 [facility] TDAP 2012-01-21 Completed University of 00:00:00 [facility] Varicella 2012-01-21 Completed University of (varivax)(chicken 00:00:00 [place] M edical pox) Branch HEPATITIS A 2012-01-21 Completed University of 00:00:00 [facility] Meningococcal 2012-01-21 Completed University of Vaccine 00:00:00 [facility] TDAP 2012-01-21 Completed University of 00:00:00 [facility] Varicella 2012-01-21 Completed University of (varivax)(chicken 00:00:00 [place] M edical pox) Branch HEPATITIS A 2012-01-21 Completed University of 00:00:00 [facility] Meningococcal 2012-01-21 Completed University of Vaccine 00:00:00 [facility] TDAP 2012-01-21 Completed University of 00:00:00 [facility] Varicella 2012-01-21 Completed University of (varivax)(chicken 00:00:00 [place] [facility] pox) Branch HEPATITIS A 2012-01-21 Completed University of 00:00:00 [facility] Meningococcal 2012-01-21 Completed University of Vaccine 00:00:00 [facility] TDAP 2012-01-21 Completed University of 00:00:00 [facility] Varicella 2012-01-21 Completed University of (varivax)(chicken 00:00:00 [place] [facility]ical pox) Branch HEPATITIS A 2012-01-21 Completed University of 00:00:00 [facility] Meningococcal 2012-01-21 Completed University of Vaccine 00:00:00 [facility] TDAP 2012-01-21 Completed University of 00:00:00 [facility] Varicella 2012-01-21 Completed University of (varivax)(chicken 00:00:00 [place] M edical pox) Branch HEPATITIS A 2012-01-21 Completed University of 00:00:00 [facility] Meningococcal 2012-01-21 Completed University of Vaccine 00:00:00 [facility] TDAP 2012-01-21 Completed University of 00:00:00 [facility] Varicella 2012-01-21 Completed University of (varivax)(chicken 00:00:00 [place] [facility] pox) Branch HEPATITIS A 2012-01-21 Completed University of 00:00:00 [facility] Meningococcal 2012-01-21 Completed University of Vaccine 00:00:00 [facility] TDAP 2012-01-21 Completed University of 00:00:00 [facility] Varicella 2012-01-21 Completed University of (varivax)(chicken 00:00:00 [place] M edical pox) Branch HEPATITIS A 2012-01-21 Completed University of 00:00:00 [facility] Meningococcal 2012-01-21 Completed University of Vaccine 00:00:00 [facility] TDAP 2012-01-21 Completed University of 00:00:00 [facility] Varicella 2012-01-21 Completed University of (varivax)(chicken 00:00:00 [place] M edical pox) Branch HEPATITIS A 2012-01-21 Completed University of 00:00:00 [facility] Meningococcal 2012-01-21 Completed University of Vaccine 00:00:00 [facility] TDAP 2012-01-21 Completed University of 00:00:00 [facility] Varicella 2012-01-21 Completed University of (varivax)(chicken 00:00:00 [place] [facility] pox) Branch HEPATITIS A 2012-01-21 Completed University of 00:00:00 [facility] Meningococcal 2012-01-21 Completed University of Vaccine 00:00:00 [facility] TDAP 2012-01-21 Completed University of 00:00:00 [facility] Varicella 2012-01-21 Completed University of (varivax)(chicken 00:00:00 [place] [facility] pox) Branch HEPATITIS A 2012-01-21 Completed University of 00:00:00 [facility] Meningococcal 2012-01-21 Completed University of Vaccine 00:00:00 [facility] TDAP 2012-01-21 Completed University of 00:00:00 [facility] Varicella 2012-01-21 Completed University of (varivax)(chicken 00:00:00 [place] M edical pox) Branch HEPATITIS A 2012-01-21 Completed University of 00:00:00 [facility] Meningococcal 2012-01-21 Completed University of Vaccine 00:00:00 [facility] TDAP 2012-01-21 Completed University of 00:00:00 [facility] Varicella 2012-01-21 Completed University of (varivax)(chicken 00:00:00 [place] [facility] pox) Branch HEPATITIS A 2012-01-21 Completed University of 00:00:00 [facility] Meningococcal 2012-01-21 Completed University of Vaccine 00:00:00 [facility] TDAP 2012-01-21 Completed University of 00:00:00 [facility] Varicella 2012-01-21 Completed University of (varivax)(chicken 00:00:00 [place] M edical pox) Branch HEPATITIS A 2012-01-21 Completed University of 00:00:00 [facility] Meningococcal 2012-01-21 Completed University of Vaccine 00:00:00 [facility] TDAP 2012-01-21 Completed University of 00:00:00 [facility] Varicella 2012-01-21 Completed University of (varivax)(chicken 00:00:00 [place] [facility] pox) Branch HEPATITIS A 2012-01-21 Completed University of 00:00:00 [facility] Meningococcal 2012-01-21 Completed University of Vaccine 00:00:00 [facility] TDAP 2012-01-21 Completed University of 00:00:00 [facility] Varicella 2012-01-21 Completed University of (varivax)(chicken 00:00:00 [place] [facility] pox) Branch HEPATITIS A 2012-01-21 Completed University of 00:00:00 [facility] Meningococcal 2012-01-21 Completed University of Vaccine 00:00:00 [facility] TDAP 2012-01-21 Completed University of 00:00:00 [facility] Varicella 2012-01-21 Completed University of (varivax)(chicken 00:00:00 [place] [facility] pox) Branch HEPATITIS A 2012-01-21 Completed University of 00:00:00 [facility] Meningococcal 2012-01-21 Completed University of Vaccine 00:00:00 [facility] TDAP 2012-01-21 Completed University of 00:00:00 [facility] Varicella 2012-01-21 Completed University of (varivax)(chicken 00:00:00 [place] [facility] pox) Branch MMR 2005-01-08 Completed University of 00:00:00 [facility] MMR 2005-01-08 Completed University of 00:00:00 [facility] MMR 2005-01-08 Completed University of 00:00:00 [facility] MMR 2005-01-08 Completed University of 00:00:00 [facility] MMR 2005-01-08 Completed University of 00:00:00 [facility] MMR 2005-01-08 Completed University of 00:00:00 [facility] MMR 2005-01-08 Completed University of 00:00:00 [facility] MMR 2005-01-08 Completed University of 00:00:00 [facility] MMR 2005-01-08 Completed University of 00:00:00 [facility] MMR 2005-01-08 Completed University of 00:00:00 [facility] MMR 2005-01-08 Completed University of 00:00:00 [facility] MMR 2005-01-08 Completed University of 00:00:00 [facility] MMR 2005-01-08 Completed University of 00:00:00 [facility] MMR 2005-01-08 Completed University of 00:00:00 [facility] MMR 2005-01-08 Completed University of 00:00:00 [facility] MMR 2005-01-08 Completed University of 00:00:00 [facility] MMR 2005-01-08 Completed University of 00:00:00 [facility] MMR 2005-01-08 Completed University of 00:00:00 [facility] MMR 2005-01-08 Completed University of 00:00:00 [facility] MMR 2005-01-08 Completed University of 00:00:00 [facility] MMR 2005-01-08 Completed University of 00:00:00 [facility] MMR 2005-01-08 Completed University of 00:00:00 [facility] MMR 2005-01-08 Completed University of 00:00:00 [facility] DTAP 2004-12-07 Completed University of 00:00:00 [facility] MMR 2004-12-07 Completed University of 00:00:00 [facility] Pneumococcal 13 2004-12-07 Completed Universit y of Conjugate, PCV13 00:00:00 [facility] dictn (Prevnar 13) Branch Polio (IPV/OPV) 2004-12-07 Completed Universit y of 00:00:00 [facility] Varicella 2004-12-07 Completed University of (varivax)(chicken 00:00:00 [place] [facility] pox) Branch DTAP 2004-12-07 Completed University of 00:00:00 [facility] MMR 2004-12-07 Completed University of 00:00:00 [facility] Pneumococcal 13 2004-12-07 Completed Universit y of Conjugate, PCV13 00:00:00 [facility] dical (Prevnar 13) Branch Polio (IPV/OPV) 2004-12-07 Completed Universit y of 00:00:00 [facility] Varicella 2004-12-07 Completed [facility] of (varivax)(chicken 00:00:00 [place] [facility] pox) [facility] DTAP 2004-12-07 Completed [facility] of 00:00:00 [facility] MMR 2004-12-07 Completed [facility] of 00:00:00 [facility] Pneumococcal 13 2004-12-07 Completed Universit y of Conjugate, PCV13 00:00:00 [facility] dical (Prevnar 13) Branch Polio (IPV/OPV) 2004-12-07 Completed [facility] y of 00:00:00 [facility] Varicella 2004-12-07 Completed [facility] (varivax)(chicken 00:00:00 [place] [facility] pox) [facility] DTAP 2004-12-07 Completed [facility] of 00:00:00 [facility] MMR 2004-12-07 Completed [facility] of 00:00:00 [facility] Pneumococcal 13 2004-12-07 Completed Universit y of Conjugate, PCV13 00:00:00 [facility] dical (Prevnar 13) Branch Polio (IPV/OPV) 2004-12-07 Completed [facility]it y of 00:00:00 [facility] Varicella 2004-12-07 Completed [facility] of (varivax)(chicken 00:00:00 [place] [facility] pox) [facility] DTAP 2004-12-07 Completed [facility] of 00:00:00 [facility] MMR 2004-12-07 Completed [facility] of 00:00:00 [facility] Pneumococcal 13 2004-12-07 Completed Universit y of Conjugate, PCV13 00:00:00 [facility] dical (Prevnar 13) Branch Polio (IPV/OPV) 2004-12-07 Completed [facility]it [facility] of 00:00:00 [facility] Varicella 2004-12-07 Completed [facility] (varivax)(chicken 00:00:00 [place] [facility] pox) [facility] DTAP 2004-12-07 Completed [facility] 00:00:00 [facility] MMR 2004-12-07 Completed [facility] 00:00:00 [facility] Pneumococcal 13 2004-12-07 Completed Universit [facility] of Conjugate, PCV13 00:00:00 [facility] dical (Prevnar 13) Branch Polio (IPV/OPV) 2004-12-07 Completed [facility]it [facility] of 00:00:00 [facility] Varicella 2004-12-07 Completed [facility] (varivax)(chicken 00:00:00 [place] [facility] pox) [facility] DTAP 2004-12-07 Completed [facility] of 00:00:00 [facility] MMR 2004-12-07 Completed [facility] of 00:00:00 [facility] Pneumococcal 13 2004-12-07 Completed [facility]it [facility] of Conjugate, PCV13 00:00:00 [place] [facility] (Prevnar 13) [facility] Polio (IPV/OPV) 2004-12-07 Completed [facility]it y of 00:00:00 [facility] Varicella 2004-12-07 Completed [facility] (varivax)(chicken 00:00:00 [place] [facility] pox) [facility] DTAP 2004-12-07 Completed [facility] of 00:00:00 [facility] MMR 2004-12-07 Completed [facility] of 00:00:00 [facility] Pneumococcal 13 2004-12-07 Completed [facility]it [facility] of Conjugate, PCV13 00:00:00 [facility] dical (Prevnar 13) Branch Polio (IPV/OPV) 2004-12-07 Completed [facility] of 00:00:00 [facility] Varicella 2004-12-07 Completed [facility] (varivax)(chicken 00:00:00 [place] [facility] pox) [facility] DTAP 2004-12-07 Completed [facility] of 00:00:00 [facility] MMR 2004-12-07 Completed [facility] of 00:00:00 [facility] Pneumococcal 13 2004-12-07 Completed Universit y of Conjugate, PCV13 00:00:00 [facility] dical (Prevnar 13) Branch Polio (IPV/OPV) 2004-12-07 Completed [facility]it [facility] of 00:00:00 [facility] Varicella 2004-12-07 Completed [facility] (varivax)(chicken 00:00:00 [place] [facility] pox) [facility] DTAP 2004-12-07 Completed [facility] of 00:00:00 [facility] MMR 2004-12-07 Completed [facility] of 00:00:00 [facility] Pneumococcal 13 2004-12-07 Completed Universit y of Conjugate, PCV13 00:00:00 [facility] dical (Prevnar 13) Branch Polio (IPV/OPV) 2004-12-07 Completed [facility]it [facility] of 00:00:00 [facility] Varicella 2004-12-07 Completed [facility] (varivax)(chicken 00:00:00 [place] [facility] pox) [facility] DTAP 2004-12-07 Completed [facility] of 00:00:00 [facility] MMR 2004-12-07 Completed [facility] of 00:00:00 [facility] Pneumococcal 13 2004-12-07 Completed Universit [facility] of Conjugate, PCV13 00:00:00 [facility] dical (Prevnar 13) Branch Polio (IPV/OPV) 2004-12-07 Completed [facility]it [facility] of 00:00:00 [facility] Varicella 2004-12-07 Completed [facility] (varivax)(chicken 00:00:00 [place] [facility] pox) [facility] DTAP 2004-12-07 Completed [facility] of 00:00:00 [facility] MMR 2004-12-07 Completed [facility] 00:00:00 [facility] Pneumococcal 13 2004-12-07 Completed [facility]it [facility] of Conjugate, PCV13 00:00:00 [place] [facility] (Prevnar 13) [facility] Polio (IPV/OPV) 2004-12-07 Completed [facility]it [facility] of 00:00:00 [facility] Varicella 2004-12-07 Completed [facility] (varivax)(chicken 00:00:00 [place] [facility] pox) [facility] DTAP 2004-12-07 Completed [facility] of 00:00:00 [facility] MMR 2004-12-07 Completed [facility] of 00:00:00 [facility] Pneumococcal 13 2004-12-07 Completed Universit y of Conjugate, PCV13 00:00:00 [facility] dical (Prevnar 13) Branch Polio (IPV/OPV) 2004-12-07 Completed [facility]it [facility] of 00:00:00 [facility] Varicella 2004-12-07 Completed [facility] (varivax)(chicken 00:00:00 [place] [facility] pox) [facility] DTAP 2004-12-07 Completed [facility] of 00:00:00 [facility] MMR 2004-12-07 Completed [facility] of 00:00:00 [facility] Pneumococcal 13 2004-12-07 Completed Universit y of Conjugate, PCV13 00:00:00 [facility] dical (Prevnar 13) Branch Polio (IPV/OPV) 2004-12-07 Completed [facility]it [facility] of 00:00:00 [facility] Varicella 2004-12-07 Completed [facility] (varivax)(chicken 00:00:00 [place] [facility] pox) [facility] DTAP 2004-12-07 Completed [facility] of 00:00:00 [facility] MMR 2004-12-07 Completed [facility] of 00:00:00 [facility] Pneumococcal 13 2004-12-07 Completed [facility]it [facility] of Conjugate, PCV13 00:00:00 [place] [facility] (Prevnar 13) [facility] Polio (IPV/OPV) 2004-12-07 Completed [facility]it [facility] of 00:00:00 [facility] Varicella 2004-12-07 Completed [facility] (varivax)(chicken 00:00:00 [place] [facility] pox) [facility] DTAP 2004-12-07 Completed [facility] of 00:00:00 [facility] MMR 2004-12-07 Completed [facility] 00:00:00 [facility] Pneumococcal 13 2004-12-07 Completed Universit y of Conjugate, PCV13 00:00:00 [place] [facility] (Prevnar 13) Branch Polio (IPV/OPV) 2004-12-07 Completed [facility]it [facility] of 00:00:00 [facility] Varicella 2004-12-07 Completed [facility] (varivax)(chicken 00:00:00 [place] [facility] pox) [facility] DTAP 2004-12-07 Completed [facility] of 00:00:00 [facility] MMR 2004-12-07 Completed [facility] of 00:00:00 [facility] Pneumococcal 13 2004-12-07 Completed Universit y of Conjugate, PCV13 00:00:00 [facility] dical (Prevnar 13) Branch Polio (IPV/OPV) 2004-12-07 Completed Universit y of 00:00:00 [facility] Varicella 2004-12-07 Completed [facility] (varivax)(chicken 00:00:00 [place] [facility] pox) [facility] DTAP 2004-12-07 Completed [facility] of 00:00:00 [facility] MMR 2004-12-07 Completed [facility] of 00:00:00 [facility] Pneumococcal 13 2004-12-07 Completed Universit y of Conjugate, PCV13 00:00:00 [facility] dical (Prevnar 13) Branch Polio (IPV/OPV) 2004-12-07 Completed [facility]it y of 00:00:00 [facility] Varicella 2004-12-07 Completed [facility] (varivax)(chicken 00:00:00 [place] [facility] pox) [facility] DTAP 2004-12-07 Completed [facility] of 00:00:00 [facility] MMR 2004-12-07 Completed [facility] of 00:00:00 [facility] Pneumococcal 13 2004-12-07 Completed Universit y of Conjugate, PCV13 00:00:00 [facility] dical (Prevnar 13) Branch Polio (IPV/OPV) 2004-12-07 Completed Universit y of 00:00:00 [facility] Varicella 2004-12-07 Completed [facility] (varivax)(chicken 00:00:00 [place] [facility] pox) [facility] DTAP 2004-12-07 Completed [facility] of 00:00:00 [facility] MMR 2004-12-07 Completed [facility] of 00:00:00 [facility] Pneumococcal 13 2004-12-07 Completed Universit y of Conjugate, PCV13 00:00:00 [facility] dical (Prevnar 13) Branch Polio (IPV/OPV) 2004-12-07 Completed [facility]it [facility] of 00:00:00 [facility] Varicella 2004-12-07 Completed [facility] of (varivax)(chicken 00:00:00 [facility] edical pox) Branch DTAP 2004-12-07 Completed [facility] of 00:00:00 [facility] MMR 2004-12-07 Completed [facility] of 00:00:00 [facility] Pneumococcal 13 2004-12-07 Completed Universit y of Conjugate, PCV13 00:00:00 [facility] dical (Prevnar 13) Branch Polio (IPV/OPV) 2004-12-07 Completed [facility] of 00:00:00 [facility] Varicella 2004-12-07 Completed [facility] of (varivax)(chicken 00:00:00 [facility] edical pox) Branch DTAP 2004-12-07 Completed [facility] of 00:00:00 [facility] MMR 2004-12-07 Completed [facility] of 00:00:00 [facility] Pneumococcal 13 2004-12-07 Completed Universit y of Conjugate, PCV13 00:00:00 [facility] dical (Prevnar 13) Branch Polio (IPV/OPV) 2004-12-07 Completed [facility]it [facility] of 00:00:00 [facility] Varicella 2004-12-07 Completed [facility] (varivax)(chicken 00:00:00 [place] [facility] pox) [facility] DTAP 2004-12-07 Completed [facility] of 00:00:00 [facility] MMR 2004-12-07 Completed [facility] of 00:00:00 [facility] Pneumococcal 13 2004-12-07 Completed Universit [facility] of Conjugate, PCV13 00:00:00 [facility] dical (Prevnar 13) Branch Polio (IPV/OPV) 2004-12-07 Completed [facility] of 00:00:00 [facility] Varicella 2004-12-07 Completed [facility] (varivax)(chicken 00:00:00 [place] [facility] pox) [facility] DTAP 2001-03-04 Completed [facility] of 00:00:00 [facility] HIB 3 Dose Schedule 2001-03-04 Completed Unive rsity of 00:00:00 [place] [facility] Hep B, Adol or Pedi 2001-03-04 Completed Unive rsity of Dosage 00:00:00 [facility] Polio (IPV/OPV) 2001-03-04 Completed Universit y of 00:00:00 [facility] DTAP 2001-03-04 Completed [facility] of 00:00:00 [facility] HIB 3 Dose Schedule 2001-03-04 Completed Unive rsity of 00:00:00 [facility] Hep B, Adol or Pedi 2001-03-04 Completed Unive rsity of Dosage 00:00:00 [facility] Polio (IPV/OPV) 2001-03-04 Completed Univers[facility] of 00:00:00 [facility] DTAP 2001-03-04 Completed [facility] of 00:00:00 [facility] HIB 3 Dose Schedule 2001-03-04 Completed Unive rsity of 00:00:00 [facility] Hep B, Adol or Pedi 2001-03-04 Completed Unive rsity of Dosage 00:00:00 [facility] Polio (IPV/OPV) 2001-03-04 Completed Universit [facility] of 00:00:00 [facility] DTAP 2001-03-04 Completed [facility] of 00:00:00 [facility] HIB 3 Dose Schedule 2001-03-04 Completed Unive rsity of 00:00:00 [facility] Hep B, Adol or Pedi 2001-03-04 Completed Unive rsity of Dosage 00:00:00 [facility] Polio (IPV/OPV) 2001-03-04 Completed [facility] of 00:00:00 [place] [facility] DTAP 2001-03-04 Completed [facility] 00:00:00 [facility] HIB 3 Dose Schedule 2001-03-04 Completed Unive rsity of 00:00:00 [facility] Hep B, Adol or Pedi 2001-03-04 Completed Unive rsity of Dosage 00:00:00 [facility] Polio (IPV/OPV) 2001-03-04 Completed [facility] of 00:00:00 [facility] DTAP 2001-03-04 Completed [facility] of 00:00:00 [facility] HIB 3 Dose Schedule 2001-03-04 Completed Unive rsity of 00:00:00 [facility] Hep B, Adol or Pedi 2001-03-04 Completed Unive rsity of Dosage 00:00:00 [facility] Polio (IPV/OPV) 2001-03-04 Completed [facility] of 00:00:00 [facility] DTAP 2001-03-04 Completed [facility] of 00:00:00 [facility] HIB 3 Dose Schedule 2001-03-04 Completed Unive rsity of 00:00:00 [facility] Hep B, Adol or Pedi 2001-03-04 Completed Unive rsity of Dosage 00:00:00 [facility] Polio (IPV/OPV) 2001-03-04 Completed Universit y of 00:00:00 [facility] DTAP 2001-03-04 Completed [facility] of 00:00:00 [facility] HIB 3 Dose Schedule 2001-03-04 Completed Unive rsity of 00:00:00 [facility] Hep B, Adol or Pedi 2001-03-04 Completed Unive rsity of Dosage 00:00:00 [facility] Polio (IPV/OPV) 2001-03-04 Completed Universit y of 00:00:00 [facility] DTAP 2001-03-04 Completed [facility] of 00:00:00 [facility] HIB 3 Dose Schedule 2001-03-04 Completed Unive rsity of 00:00:00 [facility] Hep B, Adol or Pedi 2001-03-04 Completed Unive rsity of Dosage 00:00:00 [facility] Polio (IPV/OPV) 2001-03-04 Completed [facility] of 00:00:00 [facility] DTAP 2001-03-04 Completed [facility] of 00:00:00 [facility] HIB 3 Dose Schedule 2001-03-04 Completed Unive rsity of 00:00:00 [facility] Hep B, Adol or Pedi 2001-03-04 Completed Unive rsity of Dosage 00:00:00 [facility] Polio (IPV/OPV) 2001-03-04 Completed Universit y of 00:00:00 [facility] DTAP 2001-03-04 Completed [facility] of 00:00:00 [facility] HIB 3 Dose Schedule 2001-03-04 Completed Unive rsity of 00:00:00 [facility] Hep B, Adol or Pedi 2001-03-04 Completed Unive rsity of Dosage 00:00:00 [facility] Polio (IPV/OPV) 2001-03-04 Completed [facility]it [facility] of 00:00:00 [facility] DTAP 2001-03-04 Completed [facility] of 00:00:00 [facility] HIB 3 Dose Schedule 2001-03-04 Completed Unive rsity of 00:00:00 [facility] Hep B, Adol or Pedi 2001-03-04 Completed Unive rsity of Dosage 00:00:00 [facility] Polio (IPV/OPV) 2001-03-04 Completed [facility]it [facility] of 00:00:00 [facility] DTAP 2001-03-04 Completed [facility] of 00:00:00 [facility] HIB 3 Dose Schedule 2001-03-04 Completed Unive rsity of 00:00:00 [facility] Hep B, Adol or Pedi 2001-03-04 Completed Unive rsity of Dosage 00:00:00 [facility] Polio (IPV/OPV) 2001-03-04 Completed Universit y of 00:00:00 [facility] DTAP 2001-03-04 Completed [facility] of 00:00:00 [facility] HIB 3 Dose Schedule 2001-03-04 Completed Unive rsity of 00:00:00 [facility] Hep B, Adol or Pedi 2001-03-04 Completed Unive rsity of Dosage 00:00:00 [facility] Polio (IPV/OPV) 2001-03-04 Completed Universit y of 00:00:00 [facility] DTAP 2001-03-04 Completed [facility] of 00:00:00 [facility] HIB 3 Dose Schedule 2001-03-04 Completed Unive rsity of 00:00:00 [facility] Hep B, Adol or Pedi 2001-03-04 Completed Unive rsity of Dosage 00:00:00 [facility] Polio (IPV/OPV) 2001-03-04 Completed Universit [facility] of 00:00:00 [facility] DTAP 2001-03-04 Completed [facility] of 00:00:00 [facility] HIB 3 Dose Schedule 2001-03-04 Completed Unive rsity of 00:00:00 [facility] Hep B, Adol or Pedi 2001-03-04 Completed Unive rsity of Dosage 00:00:00 [facility] Polio (IPV/OPV) 2001-03-04 Completed Universit [facility] of 00:00:00 [facility] DTAP 2001-03-04 Completed [facility] 00:00:00 [facility] HIB 3 Dose Schedule 2001-03-04 Completed Unive rsity of 00:00:00 [facility] Hep B, Adol or Pedi 2001-03-04 Completed Unive rsity of Dosage 00:00:00 [facility] Polio (IPV/OPV) 2001-03-04 Completed [facility]it y of 00:00:00 [facility] DTAP 2001-03-04 Completed [facility] 00:00:00 [facility] HIB 3 Dose Schedule 2001-03-04 Completed Unive rsity of 00:00:00 [facility] Hep B, Adol or Pedi 2001-03-04 Completed Unive rsity of Dosage 00:00:00 [facility] Polio (IPV/OPV) 2001-03-04 Completed [facility]it [facility] of 00:00:00 [facility] DTAP 2001-03-04 Completed [facility] 00:00:00 [facility] HIB 3 Dose Schedule 2001-03-04 Completed Unive rsity of 00:00:00 [facility] Hep B, Adol or Pedi 2001-03-04 Completed Unive rsity of Dosage 00:00:00 [facility] Polio (IPV/OPV) 2001-03-04 Completed [facility] of 00:00:00 [facility] DTAP 2001-03-04 Completed [facility] of 00:00:00 [facility] HIB 3 Dose Schedule 2001-03-04 Completed Unive rsity of 00:00:00 [facility] Hep B, Adol or Pedi 2001-03-04 Completed Unive rsity of Dosage 00:00:00 [facility] Polio (IPV/OPV) 2001-03-04 Completed [facility]it [facility] of 00:00:00 [facility] DTAP 2001-03-04 Completed [facility] of 00:00:00 [facility] HIB 3 Dose Schedule 2001-03-04 Completed Unive rsity of 00:00:00 [facility] Hep B, Adol or Pedi 2001-03-04 Completed Unive rsity of Dosage 00:00:00 [facility] Polio (IPV/OPV) 2001-03-04 Completed [facility]it [facility] of 00:00:00 [facility] DTAP 2001-03-04 Completed [facility] 00:00:00 [facility] HIB 3 Dose Schedule 2001-03-04 Completed Unive rsity of 00:00:00 [facility] Hep B, Adol or Pedi 2001-03-04 Completed Unive rsity of Dosage 00:00:00 [facility] Polio (IPV/OPV) 2001-03-04 Completed [facility] 00:00:00 [facility] DTAP 2001-03-04 Completed [facility] 00:00:00 [facility] HIB 3 Dose Schedule 2001-03-04 Completed Unive rsity of 00:00:00 [facility] Hep B, Adol or Pedi 2001-03-04 Completed Unive rsity of Dosage 00:00:00 [facility] Polio (IPV/OPV) 2001-03-04 Completed [facility] 00:00:00 [facility] DTAP 2000-03-05 Completed [facility] 00:00:00 [facility] HIB 3 Dose Schedule 2000-03-05 Completed Unive rsity of 00:00:00 [facility] Hep B, Adol or Pedi 2000-03-05 Completed Unive rsity of Dosage 00:00:00 [facility] Polio (IPV/OPV) 2000-03-05 Completed [facility] 00:00:00 [facility] DTAP 2000-03-05 Completed [facility] 00:00:00 [facility] HIB 3 Dose Schedule 2000-03-05 Completed Unive rsity of 00:00:00 [facility] Hep B, Adol or Pedi 2000-03-05 Completed Unive rsity of Dosage 00:00:00 [facility] Polio (IPV/OPV) 2000-03-05 Completed [facility] 00:00:00 [facility] DTAP 2000-03-05 Completed [facility] 00:00:00 [facility] HIB 3 Dose Schedule 2000-03-05 Completed Unive rsity of 00:00:00 [facility] Hep B, Adol or Pedi 2000-03-05 Completed Unive rsity of Dosage 00:00:00 [facility] Polio (IPV/OPV) 2000-03-05 Completed [facility] 00:00:00 [facility] DTAP 2000-03-05 Completed [facility] 00:00:00 [facility] HIB 3 Dose Schedule 2000-03-05 Completed [facility] of 00:00:00 [facility] Hep B, Adol or Pedi 2000-03-05 Completed Unive rsity of Dosage 00:00:00 [facility] Polio (IPV/OPV) 2000-03-05 Completed [facility] 00:00:00 [facility] DTAP 2000-03-05 Completed [facility] 00:00:00 [facility] HIB 3 Dose Schedule 2000-03-05 Completed Unive rsity of 00:00:00 [facility] Hep B, Adol or Pedi 2000-03-05 Completed [facility]ive rsity of Dosage 00:00:00 [facility] Polio (IPV/OPV) 2000-03-05 Completed [facility] 00:00:00 [facility] DTAP 2000-03-05 Completed [facility] 00:00:00 [facility] HIB 3 Dose Schedule 2000-03-05 Completed [facility] rsity of 00:00:00 [facility] Hep B, Adol or Pedi 2000-03-05 Completed [facility] rs[facility] of Dosage 00:00:00 [facility] Polio (IPV/OPV) 2000-03-05 Completed [facility] 00:00:00 [facility] DTAP 2000-03-05 Completed [facility] 00:00:00 [facility] HIB 3 Dose Schedule 2000-03-05 Completed [facility] of 00:00:00 [facility] Hep B, Adol or Pedi 2000-03-05 Completed [facility] of Dosage 00:00:00 [facility] Polio (IPV/OPV) 2000-03-05 Completed [facility] 00:00:00 [facility] DTAP 2000-03-05 Completed [facility] 00:00:00 [facility] HIB 3 Dose Schedule 2000-03-05 Completed [facility] of 00:00:00 [facility] Hep B, Adol or Pedi 2000-03-05 Completed [facility] of Dosage 00:00:00 [facility] Polio (IPV/OPV) 2000-03-05 Completed [facility] 00:00:00 [facility] DTAP 2000-03-05 Completed [facility] 00:00:00 [facility] HIB 3 Dose Schedule 2000-03-05 Completed [facility] of 00:00:00 [facility] Hep B, Adol or Pedi 2000-03-05 Completed [facility]ive [facility] of Dosage 00:00:00 [facility] Polio (IPV/OPV) 2000-03-05 Completed [facility] 00:00:00 [facility] DTAP 2000-03-05 Completed [facility] 00:00[facility]00 [facility] [facility] Dose Schedule 2000-03-05 Completed [facility]ity [facility] 00:00:00 [facility] Hep B, Adol or Pedi 2000-03-05 Completed Unive rsity of Dosage 00:00:00 [facility] Polio (IPV/OPV) 2000-03-05 Completed [facility] 00:00:00 [facility] DTAP 2000-03-05 Completed University of 00:00:00 [facility] HIB 3 Dose Schedule 2000-03-05 Completed [facility]ive rsity of 00:00:00 [facility] Hep B, Adol or Pedi 2000-03-05 Completed Unive rsity of Dosage 00:00:00 [facility] Polio (IPV/OPV) 2000-03-05 Completed Universit y [facility] 00:00:00 [facility] DTAP 2000-03-05 Completed University of 00:00:00 [facility] HIB 3 Dose Schedule 2000-03-05 Completed [facility]ive rsity of 00:00:00 [facility] Hep B, Adol or Pedi 2000-03-05 Completed Unive rsity of Dosage 00:00:00 [facility] Polio (IPV/OPV) 2000-03-05 Completed Universit y of 00:00:00 [facility] DTAP 2000-03-05 Completed University of 00:00:00 [facility] HIB 3 Dose Schedule 2000-03-05 Completed [facility] rs[facility] 00:00:00 [facility] Hep B, Adol or Pedi 2000-03-05 Completed Unive rsity of Dosage 00:00:00 [facility] Polio (IPV/OPV) 2000-03-05 Completed Universit y of 00:00:00 [facility] DTAP 2000-03-05 Completed University of 00:00:00 [facility] HIB 3 Dose Schedule 2000-03-05 Completed Unive rsity of 00:00:00 [facility] Hep B, Adol or Pedi 2000-03-05 Completed [facility]ive rsity of Dosage 00:00:00 [facility] Polio (IPV/OPV) 2000-03-05 Completed [facility]it y of 00:00:00 [facility] DTAP 2000-03-05 Completed University of 00:00:00 [facility] HIB 3 Dose Schedule 2000-03-05 Completed [facility]ive rsity of 00:00:00 [facility] Hep B, Adol or Pedi 2000-03-05 Completed Unive rsity of Dosage 00:00:00 [facility] Polio (IPV/OPV) 2000-03-05 Completed Universit y [facility] 00:00:00 [facility] DTAP 2000-03-05 Completed University of 00:00:00 [facility] HIB 3 Dose Schedule 2000-03-05 Completed [facility]ive rsity of 00:00:00 [facility] Hep B, Adol or Pedi 2000-03-05 Completed Unive rsity of Dosage 00:00:00 [facility] Polio (IPV/OPV) 2000-03-05 Completed [facility]it [facility] 00:00:00 [facility] DTAP 2000-03-05 Completed University of 00:00:00 [facility] HIB 3 Dose Schedule 2000-03-05 Completed [facility]ive rsity of 00:00:00 [facility] Hep B, Adol or Pedi 2000-03-05 Completed [facility]ive rsity of Dosage 00:00:00 [facility] Polio (IPV/OPV) 2000-03-05 Completed Universit y of 00:00:00 [facility] DTAP 2000-03-05 Completed University of 00:00:00 [facility] HIB 3 Dose Schedule 2000-03-05 Completed [facility]ive rsity of 00:00:00 [facility] Hep B, Adol or Pedi 2000-03-05 Completed [facility]ive rsity of Dosage 00:00:00 [facility] Polio (IPV/OPV) 2000-03-05 Completed Universit y of 00:00:00 [facility] DTAP 2000-03-05 Completed University of 00:00:00 [facility] HIB 3 Dose Schedule 2000-03-05 Completed [facility]ive rsity of 00:00:00 [facility] Hep B, Adol or Pedi 2000-03-05 Completed [facility]ive rsity of Dosage 00:00:00 [facility] Polio (IPV/OPV) 2000-03-05 Completed [facility]it [facility] of 00:00:00 [facility] DTAP 2000-03-05 Completed University of 00:00:00 [facility] HIB 3 Dose Schedule 2000-03-05 Completed [facility]ive rsity of 00:00:00 [facility] Hep B, Adol or Pedi 2000-03-05 Completed Unive rsity of Dosage 00:00:00 [facility] Polio (IPV/OPV) 2000-03-05 Completed Universit y of 00:00:00 [facility] DTAP 2000-03-05 Completed University of 00:00:00 [facility] HIB 3 Dose Schedule 2000-03-05 Completed Unive rsity of 00:00:00 [facility] Hep B, Adol or Pedi 2000-03-05 Completed Unive rsity of Dosage 00:00:00 [facility] Polio (IPV/OPV) 2000-03-05 Completed [facility]it [facility] 00:00:00 [facility] DTAP 2000-03-05 Completed University of 00:00:00 [facility] HIB 3 Dose Schedule 2000-03-05 Completed [facility]ive rsity of 00:00:00 [facility] Hep B, Adol or Pedi 2000-03-05 Completed [facility]ive rsity of Dosage 00:00:00 [facility] Polio (IPV/OPV) 2000-03-05 Completed Universit [facility] of 00:00:00 [facility] DTAP 2000-03-05 Completed University of 00:00:00 [facility] HIB 3 Dose Schedule 2000-03-05 Completed [facility]ive rsity of 00:00:00 [facility] Hep B, Adol or Pedi 2000-03-05 Completed [facility]ive rsity of Dosage 00:00:00 [facility] Polio (IPV/OPV) 2000-03-05 Completed [facility] 00:00:00 [facility] DTAP 1999 Completed University of 00:00:00 [facility] HIB 3 Dose Schedule 1999 Completed [facility]ive [facility]ity of 00:00:00 [facility] Hep B, Adol or Pedi 1999 Completed [facility]ive rsity of Dosage 00:00:00 [facility] Polio (IPV/OPV) 1999 Completed [facility] 00:00:00 [facility] DTAP 1999 Completed University of 00:00:00 [facility] HIB 3 Dose Schedule 1999 Completed [facility]ive rsity of 00:00:00 [facility] Hep B, Adol or Pedi 1999 Completed [facility]ive rsity of Dosage 00:00:00 [facility] Polio (IPV/OPV) 1999 Completed Univers[facility] 00:00:00 [facility] DTAP 1999 Completed University of 00:00:00 [facility] HIB 3 Dose Schedule 1999 Completed [facility]ive rsity of 00:00:00 [facility] Hep B, Adol or Pedi 1999 Completed [facility]ive rsity of Dosage 00:00:00 [facility] Polio (IPV/OPV) 1999 Completed [facility] 00:00:00 [facility] DTAP 1999 Completed University of 00:00:00 [facility] HIB 3 Dose Schedule 1999 Completed [facility]ive rsity of 00:00:00 [facility] Hep B, Adol or Pedi 1999 Completed [facility]ive rsity of Dosage 00:00:00 [facility] Polio (IPV/OPV) 1999 Completed Univers[facility] of 00:00:00 [facility] DTAP 1999 Completed University of 00:00:00 [facility] HIB 3 Dose Schedule 1999 Completed [facility]ive rsity of 00:00:00 [facility] Hep B, Adol or Pedi 1999 Completed [facility]ive rsity of Dosage 00:00:00 [facility] Polio (IPV/OPV) 1999 Completed Univers[facility] 00:00:00 [facility] DTAP 1999 Completed University of 00:00:00 [facility] HIB 3 Dose Schedule 1999 Completed [facility]ive rsity of 00:00:00 [facility] Hep B, Adol or Pedi 1999 Completed Unive rsity of Dosage 00:00:00 [facility] Polio (IPV/OPV) 1999 Completed [facility] 00:00:00 [facility] DTAP 1999 Completed University of 00:00:00 [facility] HIB 3 Dose Schedule 1999 Completed [facility]ive rsity of 00:00:00 [facility] Hep B, Adol or Pedi 1999 Completed [facility]ive rsity of Dosage 00:00:00 [facility] Polio (IPV/OPV) 1999 Completed Univers[facility] 00:00:00 [facility] DTAP 1999 Completed University of 00:00:00 [facility] HIB 3 Dose Schedule 1999 Completed [facility] rsity of 00:00:00 [facility] Hep B, Adol or Pedi 1999 Completed [facility]ive rsity of Dosage 00:00:00 [facility] Polio (IPV/OPV) 1999 Completed [facility] 00:00:00 [facility] DTAP 1999 Completed University of 00:00:00 [facility] HIB 3 Dose Schedule 1999 Completed [facility]ive rsity of 00:00:00 [facility] Hep B, Adol or Pedi 1999 Completed Unive rsity of Dosage 00:00:00 [facility] Polio (IPV/OPV) 1999 Completed [facility] 00:00:00 [facility] DTAP 1999 Completed University of 00:00:00 [facility] HIB 3 Dose Schedule 1999 Completed [facility]ive rsity of 00:00:00 [facility] Hep B, Adol or Pedi 1999 Completed Unive rsity of Dosage 00:00:00 [facility] Polio (IPV/OPV) 1999 Completed [facility] 00:00:00 [facility] DTAP 1999 Completed University of 00:00:00 [facility] HIB 3 Dose Schedule 1999 Completed Unive rsity of 00:00:00 [facility] Hep B, Adol or Pedi 1999 Completed Unive rsity of Dosage 00:00:00 [facility] Polio (IPV/OPV) 1999 Completed [facility] 00:00:00 [facility] DTAP 1999 Completed University of 00:00:00 [facility] HIB 3 Dose Schedule 1999 Completed [facility]ive rsity of 00:00:00 [facility] Hep B, Adol or Pedi 1999 Completed Unive rsity of Dosage 00:00:00 [facility] Polio (IPV/OPV) 1999 Completed [facility] 00:00:00 [facility] DTAP 1999 Completed [facility] of 00:00:00 [facility] HIB 3 Dose Schedule 1999 Completed [facility]ive rsity of 00:00:00 [facility] Hep B, Adol or Pedi 1999 Completed Unive rsity of Dosage 00:00:00 [facility] Polio (IPV/OPV) 1999 Completed [facility] 00:00:00 [facility] DTAP 1999 Completed University of 00:00:00 [facility] HIB 3 Dose Schedule 1999 Completed [facility]ive rsity of 00:00:00 [facility] Hep B, Adol or Pedi 1999 Completed Unive rsity of Dosage 00:00:00 [facility] Polio (IPV/OPV) 1999 Completed [facility] 00:00:00 [facility] DTAP 1999 Completed [facility] of 00:00:00 [facility] HIB 3 Dose Schedule 1999 Completed [facility]ive rsity of 00:00:00 [facility] Hep B, Adol or Pedi 1999 Completed [facility]ive rsity of Dosage 00:00:00 [facility] Polio (IPV/OPV) 1999 Completed [facility] 00:00:00 [facility] DTAP 1999 Completed University of 00:00:00 [facility] HIB 3 Dose Schedule 1999 Completed [facility]ive rsity of 00:00:00 [facility] Hep B, Adol or Pedi 1999 Completed [facility]ive rsity of Dosage 00:00:00 [facility] Polio (IPV/OPV) 1999 Completed [facility] 00:00:00 [facility] DTAP 1999 Completed University of 00:00:00 [facility] HIB 3 Dose Schedule 1999 Completed [facility]ive rsity of 00:00:00 [facility] Hep B, Adol or Pedi 1999 Completed [facility]ive rsity of Dosage 00:00:00 [facility] Polio (IPV/OPV) 1999 Completed [facility] 00:00:00 [facility] DTAP 1999 Completed University of 00:00:00 [facility] HIB 3 Dose Schedule 1999 Completed Unive rsity of 00:00:00 [facility] Hep B, Adol or Pedi 1999 Completed Unive rsity of Dosage 00:00:00 [facility] Polio (IPV/OPV) 1999 Completed [facility] 00:00:00 [facility] DTAP 1999 Completed [facility] of 00:00:00 [facility] HIB 3 Dose Schedule 1999 Completed Unive rsity of 00:00:00 [facility] Hep B, Adol or Pedi 1999 Completed [facility]ive rsity of Dosage 00:00:00 [facility] Polio (IPV/OPV) 1999 Completed Univers[facility] 00:00:00 [facility] DTAP 1999 Completed University of 00:00:00 [facility] HIB 3 Dose Schedule 1999 Completed [facility]ive rsity of 00:00:00 [facility] Hep B, Adol or Pedi 1999 Completed [facility]ive rsity of Dosage 00:00:00 [facility] Polio (IPV/OPV) 1999 Completed [facility] 00:00:00 [facility] DTAP 1999 Completed [facility] of 00:00:00 [facility] HIB 3 Dose Schedule 1999 Completed [facility]ive rsity of 00:00:00 [facility] Hep B, Adol or Pedi 1999 Completed Unive rsity of Dosage 00:00:00 [facility] Polio (IPV/OPV) 1999 Completed Univers[facility] of 00:00:00 [facility] DTAP 1999 Completed [facility] 00:00:00 [facility] HIB 3 Dose Schedule 1999 Completed Unive rsity of 00:00:00 [facility] Hep B, Adol or Pedi 1999 Completed Unive rsity of Dosage 00:00:00 [facility] Polio (IPV/OPV) 1999 Completed [facility] of 00:00:00 [facility] DTAP 1999 Completed [facility] of 00:00:00 [facility] HIB 3 Dose Schedule 1999 Completed Unive rsity of 00:00:00 [facility] Hep B, Adol or Pedi 1999 Completed Unive rsity of Dosage 00:00:00 [facility] Polio (IPV/OPV) 1999 Completed [facility] 00:00:00 [facility] Vital Signs Vital Name Observation Time Observation Value Comments Source Heart rate 2022-07-02 16:04:00 87 /min [facility] ty of [facility] Body temperature 2022-07-02 16:04:00 36.89 Radha Univ ersity of [facility] Respiratory rate 2022-07-02 16:04:00 22 /min Univ ersity of [facility] Body height 2022-07-02 16:04:00 165.1 cm Universi ty of [facility] Body weight 2022-07-02 16:04:00 101.833 kg Universi ty of [facility] BMI 2022-07-02 16:04:00 37.36 kg/m2 Universi ty of [facility] Oxygen saturation in 2022-07-02 16:04:00 99 /min University of Arterial blood by [place] [employer] [facility] Pulse oximetry Branch Systolic blood 2021-09-13 07:00:00 121 mm[Hg] Univer sity of pressure [facility] Diastolic blood 2021-09-13 07:00:00 84 mm[Hg] Unive rsity of pressure [facility] Heart rate 2021-09-13 07:00:00 98 /min Universi ty of [facility] Respiratory rate 2021-09-13 07:00:00 20 /min Univ ersity of [facility] Oxygen saturation in 2021-09-13 07:00:00 98 /min University of Arterial blood by [place] [employer] [facility] Pulse oximetry Branch Body temperature 2021-09-13 05:34:00 37.61 Radha Univ ers[facility] of [facility] Body height 2021-09-13 05:34:00 162.6 cm [facility] [place] [facility] [place] Body weight 2021-09-13 05:34:00 111.131 kg [facility] [place] [facility] [place] BMI 2021-09-13 05:34:00 42.05 kg/m2 Universi ty of [facility] Systolic blood 2020-12-31 20:48:00 127 mm[Hg] Univer sity of pressure [facility] Diastolic blood 2020-12-31 20:48:00 96 mm[Hg] Unive rsity of pressure [facility] Heart rate 2020-12-31 20:48:00 83 /min [facility] Body temperature 2020-12-31 20:48:00 36.83 Radha [facility] Respiratory rate 2020-12-31 20:48:00 18 /min Univ [facility] Body weight 2020-12-31 20:48:00 110.678 kg [facility] BMI 2020-12-31 20:48:00 41.88 kg/m2 [facility] Oxygen saturation in 2020-12-31 20:48:00 100 /min University of Arterial blood by [facility] [place] [place] Pulse oximetry Branch Systolic blood 2020-11-07 14:46:00 126 mm[Hg] Univer sity of pressure [facility] Diastolic blood 2020-11-07 14:46:00 76 mm[Hg] Unive rsity of pressure [facility] Heart rate 2020-11-07 14:46:00 92 /min [facility] Body temperature 2020-11-07 14:46:00 37 Radha [facility] Respiratory rate 2020-11-07 14:46:00 24 /min [facility] Body height 2020-11-07 14:46:00 162.6 cm [facility] Body weight 2020-11-07 14:46:00 113.581 kg [facility] BMI 2020-11-07 14:46:00 42.98 kg/m2 [facility] Systolic blood 2020-10-17 18:10:00 119 mm[Hg] Univer [facility]ity of pressure [facility] Diastolic blood 2020-10-17 18:10:00 72 mm[Hg] Unive rsity of pressure [facility] Heart rate 2020-10-17 18:10:00 99 /min [facility] Body temperature 2020-10-17 18:10:00 36.89 Radha [facility] Respiratory rate 2020-10-17 18:10:00 16 /min [facility] Body height 2020-10-17 18:10:00 162.6 cm [facility] Body weight 2020-10-17 18:10:00 117.113 kg [facility] BMI 2020-10-17 18:10:00 44.32 kg/m2 [facility] Systolic blood 2020-08-09 06:00:00 136 mm[Hg] Univer [facility]ity of pressure [facility] Diastolic blood 2020-08-09 06:00:00 75 mm[Hg] Unive rsity of pressure [facility] Heart rate 2020-08-09 06:00:00 93 /min [facility] Respiratory rate 2020-08-09 06:00:00 18 /min Univ ersity of [facility] Oxygen saturation in 2020-08-09 06:00:00 92 /min University of Arterial blood by [place] [employer] [facility] Body temperature 2020-08-09 05:00:00 37.44 Radha [facility] [place] [facility] [place] Body height 2020-08-09 05:00:00 162.6 cm [facility] Body weight 2020-08-09 05:00:00 114.306 kg [facility] BMI 2020-08-09 05:00:00 43.26 kg/m2 [facility] Systolic blood 2020-01-08 07:00:00 137 mm[Hg] Univer [facility]ity of pressure [facility] Diastolic blood 2020-01-08 07:00:00 82 mm[Hg] Unive rsity of pressure [facility] Heart rate 2020-01-08 07:00:00 80 /min [facility] Body temperature 2020-01-08 07:00:00 36.89 Radha [facility] Respiratory rate 2020-01-08 07:00:00 11 /min [facility] Oxygen saturation in 2020-01-08 07:00:00 95 /min University of Arterial blood by [employer] P[facility] oxim[facility] Branch Body weight 2020-01-08 05:39:00 108.863 kg [facility] Systolic blood 2020-01-08 07:00:00 137 mm[Hg] Univer sity of pressure [facility] Diastolic blood 2020-01-08 07:00:00 82 mm[Hg] Unive rsity of pressure [facility] Heart rate 2020-01-08 07:00:00 80 /min [facility] Body temperature 2020-01-08 07:00:00 36.89 Radha [facility] 2020-01-08 07:00:00 11 /min [facility] Oxygen saturation in 2020-01-08 07:00:00 95 /min [facility] Arterial blood by [facility] [place] [place] Pulse oximetry Branch Body weight 2020-01-08 05:39:00 108.863 kg [facility] Procedures Procedure Date / Time Performed Performing Clinician Sour e XR SPINE THORACIC 2 VW 2022-07-02 18:53:16 Prakash Allan [facility] XR ELBOW >3 VW LEFT 2022-07-02 18:53:16 Prakash Allan [facility] CONSENT/REFUSAL FOR 2022-07-02 15:56:23 Doctor Unassigned, No [facility] [place] [facility] Name [facility] TREATMENT CONSENT/REFUSAL FOR 2021-09-13 05:29:08 Doctor Unassigned, No [facility] [place] DI[facility] AND Name [facility] TREATMENT NOTICE OF PRIVACY 2021-09-13 05:28:35 Doctor Unassigned, No [facility] PRACTICES [facility] POCT TEST 2020-12-31 21:04:00 Perry Herndon [facility] URINALYSIS 2020-12-31 20:58:00 Perry Herndon [place] [facility] CONSENT/REFUSAL FOR 2020-12-31 20:17:00 Doctor Unassigned, No [facility] [place] DIAGNOSIS AND [facility] [place] TREATMENT POCT TEST 2020-10-17 19:59:00 Felipa Briseno [facility] GARDASIL 9 (HPV 9V) 2020-10-17 19:16:48 Felipa Briseno [facility] VACCINE [facility] CONSENT/REFUSAL FOR 2020-10-17 17:25:15 Doctor Unassigned, No [facility] [place] DIAGNOSIS AND [facility] TREATMENT ASSIGNMENT OF BENEFITS 2020-10-17 17:24:54 Doctor Unassigned, No [facility] BASIC METABOLIC PANEL 2020-08-09 05:20:00 Morena Benton [facility] (NA, K, CL, CO2, Medical Branch GLUCOSE, BUN, CREATININE, CA) CBC WITH DIFF 2020-08-09 05:20:00 Morena Benton [facility] POCT TEST 2020-08-09 05:05:00 Morena Benton [facility] URINALYSIS 2020-08-09 05:03:00 Morena Benton [facility] NOTICE OF PRIVACY 2020-08-09 04:47:00 Doctor Unassigned, No Univ [facility] PRACTICES Name [facility] CONSENT/REFUSAL FOR 2020-08-09 04:46:34 Doctor Unassigned, No [facility] DIAGNOSIS AND Name [facility] TREATMENT XR CHEST 1 VW 2020-01-08 06:19:33 El Hussein [facility] LIPASE 2020-01-08 06:14:00 El Hussein [facility] TROPONIN I 2020-01-08 06:14:00 El Hussein [facility] HEPATIC FUNCTION PANEL 2020-01-08 06:14:00 El Hussein [facility] ([id number]) [facility] (ALB,T.PRO,BILI T,BU/BC,ALT,AST,ALK PHOS) BASIC METABOLIC PANEL 2020-01-08 06:14:00 El Hussein [facility] (NA, K, CL, CO2, Medical [facility] GLUCOSE, BUN, CREATININE, CA) CBC WITH DIFF 2020-01-08 06:14:00 El Hussein [facility] URINALYSIS 2020-01-08 06:14:00 El Hussein [facility] POCT TEST 2020-01-08 06:13:00 El Hussein [facility] EKG-12 LEAD 2020-01-08 05:54:25 El Hussein [facility] Encounters Start End Encounter Admission Attending Care Care Encounter Source Date/Time Date/Time Type Type Clinicians Facility Department ID 2021-04-02 Emergency [facility] [id number] Univers 12:16:56 ity of [facility] 2022-10-16 2022-10-16 Outpatient [facility] [id number] Eulogio 14:28:32 14:28:32 [id number] F Ronnie 2022-07-02 2022-07-02 Emergency X [facility] ERT [id number] Univers 10:07:00 14:07:00 PRAKASH ity [facility] 2022-07-02 2022-07-02 Emergency [facility] [id number] Univers 10:07:00 14:07:00 Prakash MARRERO [id number] i ty of [place] [id number] [facility] [id number] [address] 2022-07-02 2022-07-02 Orders Doctor MARYSOL [id number] Univers 00:00:00 00:00:00 Only Unassigned, MARCIO [id number] ity of [place] [facility] [id number] [place] [id number] [address] 2021-09-13 2021-09-13 Emergency X [facility] ERT [id number] Univers 00:42:00 02:04:00 PRAKASH [facility] 2021-09-13 2021-09-13 Emergency [facility] [id number] Univers 00:42:00 02:04:00 Prakash MARRERO [id number] i ty of [id number] [facility] [phone] [address] 2021-03-02 2021-03-02 Telephone [facility] 1.2.840.114 [id number] Univers 00:00:00 00:00:00 Felipa Messina 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 CAR OPERATOR 350.1.13.10 ity of [facility] 4.2.7.2.686 [place] MATERNAL [id number] Med ical & CHILD [address] [place] [address] 2020-12-24 2020-12-24 Nurse Lise Garcia 1.2.840.114 [id number] Univers 00:00:00 00:00:00 Triage MARCIO 350.1.13.10 it y of [facility] 4.2.7.2.686 [place] [phone] [facility] [address] [place] 2020-11-07 2020-11-07 Office [facility] [id number] Univers 09:33:35 11:41:19 Visit Felipa Messina 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 CAR OPERATOR 350.1.13.10 ity of [facility] 4.2.7.2.686 [place] MATERNAL [phone] [facility] ical & CHILD [address] [place] [address] 2020-11-07 2020-11-07 Outpatient R AKINBLANKAPE, [facility] [id number] Univers 09:30:00 09:30:00 FELIPA bolesy o f [facility] 2020-11-03 2020-11-03 [facility] 1.2.840.114 [id number] Univers 00:00:00 00:00:00 Felipa Messina 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 CAR OPERATOR 350.1.13.10 ity of [facility] 4.2.7.2.686 [place] MATERNAL [id number] [facility] ical & CHILD [address] [place] [address] 2020-11-02 2020-11-02 [facility] 1.2.840.114 [id number] Univers 00:00:00 00:00:00 Felipa C QUENCHING CAR OPERATOR 350.1.13.10 ity of [facility] 4.2.7.2.686 [place] MATERNAL [phone] [facility] ical & CHILD [address] [place] [address] 2020-11-01 2020-11-01 [facility] [id number] Univers 00:00:00 00:00:00 Felipa C QUENCHING CAR OPERATOR 350.1.13.10 ity of [facility] 4.2.7.2.686 [place] as MATERNAL [phone] [facility] [address] [place] [address] 2020-11-01 2020-11-01 Letter ELDA Jonas 1.2.840.114 [id number] Univers 00:00:00 00:00:00 (Out) [facility] 350.1.13.10 i ty of [facility] 4.[place].7.2.[place] [phone] [address] 2020-10-27 2020-10-27 Outpatient R [facility] [id number] Univers 15:30:00 15:30:00 ity of [facility] 2020-10-19 2020-10-19 [facility]phone [facility] 1.2.840.114 [id number] Univers 00:00:00 00:00:00 Felipa C QUENCHING CAR OPERATOR 350.1.13.10 ity of [facility] 4.2.7.2.686 [place] as MATERNAL [phone] [facility] & CHILD [address] [place] [address] 2020-10-17 2020-10-17 Office [facility] [id number] Univers 12:46:36 14:56:59 Visit Felipa C QUENCHING CAR OPERATOR 350.1.13.10 ity of [facility] 4.2.7.2.686 [place] MATERNAL [phone] Med ical & CHILD [address] [place] [address] 2020-10-17 2020-10-17 Outpatient R YUE [facility] [id number] Univers 13:00:00 13:00:00 FELIPA elvijordon fazal f [facility] 2020-10-17 2020-10-17 Orders Doctor MARYSOL 1.2.840.114 [id number] Univers 00:00:00 00:00:00 Only Unassigned, MARCIO 350.1.13.10 ity of [facility] 4.2.7.2.686 [place]ander as [phone] [address] 2020-08-08 2020-08-09 Emergency [facility] 1.2.840.114 [id number] Univers 22:53:00 01:02:00 Morena Marrero 350.1.13.10 it[place] of [place] [id number] [address] 2020-08-08 2020-08-08 Emergency [facility] [id number] Univers 22:53:00 22:53:00 MORENA mills [facility] 2020-08-08 2020-08-08 Orders Doctor MARYSOL 1.2.840.114 [id number] Univers 00:00:00 00:00:00 Only Unassigned, MARCIO 350.1.13.10 ity of [place] [facility] 4.2.7.2.686 [place]ander as [phone] [address] 2020-01-08 2020-01-08 Emergency El Hussein [facility] 1.2.840.114 [id number] 00:31:00 02:30:00 T Priyank 350.1.13.10 [place] 4.2.7.2.686 [place] [id number] [facility] 2020-01-08 2020-01-08 Emergency El Hussein [facility] 1.2.840.114 [id number] Univers 00:31:00 02:30:00 T Priyank 350.1.13.10 i ty of [place] [phone] [address] 2020-01-08 2020-01-08 Emergency X EL HUSSEIN [facility] ERT [id number] Univers 00:31:00 00:31:00 [facility] Results Test Description Test Time Test Comments Results Result Comments Source URINALYSIS 2020-12-31 21:40:37 Test Item Value Reference Range Interpretation Comme nts APPEARANCE (test code = Hazy Clear A 6066511363) COLOR (test code = 9544703476) Yellow Yellow PH (test code = 6994509792) 4.8-8.0 SP GRAVITY (test code = 1.003-1.030 8062404263) GLU U QUAL (test code = Normal Normal 7006927136) BLOOD (test code = 8536482619) 2+ Negative A KETONES (test code = 5537936538) Negative Negative PROTEIN (test code = 2887-8) Negative Negative UROBILIN (test code = Normal Normal 0666136751) BILIRUBIN (test code = Negative Negative 3016970225) NITRITE (test code = 5414604928) Negative Negative LEUK MAXIMINO (test code = Negative Negative 3974504437) RBC/HPF (test code = 9010957326) See_Comment [Automated message] The system which ge nerated this result transmit jill reference range: 0 - 3 HP F. The reference range was not used to interpret th is result as normal/abnormal . WBC/HPF (test code = 3250716272) See_Comment [Automated message] The system which ge nerated this result transmit jill reference range: 0 - 5 HP F. The reference range was not used to interpret th is result as normal/abnormal . BACTERIA (test code = Few Negative A 7748571144) MUCOUS (test code = 1348366003) Slight Negative LPF A SQ EPITH (test code = HPF 5559431072) HYAL CAST (test code = See_Comment [Aut omated message] The 3696152736) system which ge nerated this result transmit jill reference range: <=2 LPF. The reference range was not u sed to interpret this result as normal/abnormal . Lab Interpretation (test code = Abnormal 53624-1) [id number] 21[facility]04:00 Test Item Value Reference Range Interpretation Comments POCT PREG (test code = 1605) negative On board controls acceptable with present C Line (test code = 3574) POCT PREG LOT # (test code = 3575) [id number] POCT PREG TEST DATE (test 06/01/2022 code = 3576) Lab Interpretation (test code = Normal 82602-1) [facility] [id number] 20:00:00 Test Item Value Reference Range Interpretation Comments POCT PREG (test code = 1605) Negative On board controls acceptable with C Yes Line (test code = 3574) POCT PREG LOT # (test code = 3575) POCT PREG TEST DATE (test code = 3576) [facility] [id number] 20:00:00 Test Item Value Reference Range Interpretation Comments POCT PREG (test code = 1605) Negative On board controls acceptable with C Yes Line (test code = 3574) POCT PREG LOT # (test code = 3575) POCT PREG TEST DATE (test code = 3576) [facility] 05:59:35 Test Item Value Reference Range Interpretation Comments APPEARANCE (test code = Clear Clear 8491251772) COLOR (test code = Yellow Yellow 9029894959) PH (test code = 4.8-8.0 3903618458) SP GRAVITY (test code = 1.003-1.030 7856501591) GLU U QUAL (test code = Normal Normal 8836876176) BLOOD (test code = 1+ Negative A 2944324152) KETONES (test code = Negative Negative 6675840074) PROTEIN (test code = Negative Negative 2887-8) UROBILIN (test code = Normal Normal 9010755712) BILIRUBIN (test code = Negative Negative 4135783020) NITRITE (test code = Negative Negative 4456744030) LEUK MAXIMINO (test code = Negative Negative 6030741985) RBC/HPF (test code = See_Comment [Autom ated message] 5697605339) The system [employer] generated this result transmitted ref erence range: 0 - 3 HP F. The reference range was not used to int erpret this result as normal/abnormal . WBC/HPF (test code = See_Comment [Autom ated message] 3647611928) The system [employer] generated this result transmitted ref erence range: 0 - 5 HP F. The reference range was not used to int erpret this result as normal/abnormal . BACTERIA (test code = Few Negative A 0329270742) MUCOUS (test code = Slight Negative LPF A 9927136471) SQ EPITH (test code = HPF 2398830721) Lab Interpretation (test Abnormal code = 20057-2) [facility] Metabolic Panel (NA, K, CL, CO2, GLUCOSE, BUN, CREATININE, CA)2020-08-09 05:38:20 Test Item Value Reference Range Interpretation Comments NA (test code = 137 mmol/L 135-145 2083822040) K (test code = 3.8 mmol/L 3.5-5.0 8970606562) CL (test code = 102 mmol/L 98-108 6969457589) CO2 TOTAL (test code = 26 mmol/L 23-31 1707328701) AGAP (test code = 2-16 6612155614) BUN (test code = 9 mg/dL 7-23 5055627045) GLUCOSE (test code = 83 mg/dL 70-110 6202467673) CREATININE (test code 0.67 mg/dL 0.50-1.04 = 6127496427) CALCIUM (test code = 9.4 mg/dL 8.6-10.6 5368333178) eGFR Calculation mL/min/1.73m2 (Non-) (test code = 5902516200) eGFR Calculation mL/min/1.73m2 () (test code = 5039982046) AVA (test code = AVA) Association of [...] or abnormalities in imaging tests). [facility] [id number] 05:05:00 Test Item Value Reference Range Interpretation Comments POCT PREG (test code = 1605) neg On board controls acceptable with yes C Line (test code = 3574) POCT PREG LOT # (test code = 3575) [id number] POCT PREG TEST DATE (test 04/01/2022 code = 3576) Lab Interpretation (test code = Normal 96355-8) [facility] [id number] 06:59:00 Test Item Value Reference Range Interpretation Comments TROPONIN I (test <0.012 See_Comment [Automated code = 8530719129) message] The system which generated this result [...] ? Lab Interpretation Normal (test code = 03195-4) [facility] Metabolic Panel (NA, K, CL, CO2, GLUCOSE, BUN, CREATININE, CA)2020-01-08 06:48:00 Test Item Value Reference Range Interpretation Comments NA (test code = 138 mmol/L 135-145 2096796537) K (test code = 4.0 mmol/L 3.5-5 1384215634) CL (test code = 106 mmol/L 98-108 2639545392) CO2 TOTAL (test code = 24 mmol/L 23-31 4320062150) AGAP (test code = 2-16 9633736402) BUN (test code = 10 mg/dL 7-23 6841361896) GLUCOSE (test code = 91 mg/dL 70-110 2401771458) CREATININE (test code 0.64 mg/dL 0.5-1.04 = 6912154849) CALCIUM (test code = 9.3 mg/dL 8.6-10.6 3934112943) eGFR Calculation mL/min/1.73m2 (Non-) (test code = 5542390337) eGFR Calculation mL/min/1.73m2 () (test code = 2200972248) AVA (test code = AVA) Association of [...] or abnormalities in imaging tests). [facility] (ALB, T.PRO, BILI T, BU/BC, ALT, AST, ALK PHOS)2020-01-08 06:48:00 Test Item Value Reference Range Interpretation Comments TOTAL BILI (test code = 8327493682) 0.2 mg/dL 0.1-1.1 BILI UNCON (test code = 7767443382) 0.4 mg/dL 0.1-1.1 BILI CONJ (test code = 0311447653) 0.0 mg/dL 0-0.3 T PROTEIN (test code = 6735765942) 7.4 g/dL 6.3-8.2 ALBUMIN (test code = 6477751220) 4.6 g/dL 3.5-5 ALK PHOS (test code = 4990923105) 45 U/L 34-122 ALTv (test code = 1742-6) 22 U/L 5-35 AST(SGOT) (test code = 7706783972) 27 U/L 13-40 Lab Interpretation (test code = Normal 37436-1) [facility] [id number] 06:48:00 Test Item Value Reference Range Interpretation Comments LIPASE (test code = 1039959013) 78 U/L 0-220 Lab Interpretation (test code = Normal 14168-6) [facility]2020-[facility]-08 06:41:00 Test Item Value Reference Range Interpretation Comments APPEARANCE (test code = Clear Clear 0424797654) COLOR (test code = Colorless Yellow A 3146077747) PH (test code = 4.8-8.0 5463210749) SP GRAVITY (test code = 1.003-1.030 2724527912) GLU U QUAL (test code = Normal Normal 7155557304) BLOOD (test code = 1+ Negative A 5325430705) KETONES (test code = Negative Negative 2819397756) PROTEIN (test code = Negative Negative 2887-8) UROBILIN (test code = Normal Normal 0215236589) BILIRUBIN (test code = Negative Negative 1541075914) NITRITE (test code = Negative Negative 7811359332) LEUK MAXIMINO (test code = Negative Negative 8679696076) RBC/HPF (test code = See_Comment [Autom ated message] 9655263207) The system [employer] generated this result transmit jill reference range : 0 - 3 HPF. The refe rence range was not u sed to interpret th is result as normal/abnormal . WBC/HPF (test code = See_Comment [Autom ated message] 3013753173) The system [employer] generated this result transmit jill reference range : 0 - 5 HPF. The refe rence range was not u sed to interpret th is result as normal/abnormal . BACTERIA (test code = Few Negative A 4352641026) SQ EPITH (test code = HPF 3316455580) Lab Interpretation (test Abnormal code = 71899-8) [facility] with [id number] 06:31:00 Test Item Value Reference Range Interpretation Comments WBC (test code = See_Comment [Automated 8290-2) message] The sy stem which generated this result transmitted reference range : 4.30 - 11.10 10*3/?L. The reference range was not used to interpret this result as normal/abnormal . RBC (test code = See_Comment [Automated 899-8) message] The sy stem which generated this [...] RDW-SD (test code = 39.7 fL 39-49.9 76935-4) RDW-CV (test code = 13.2 % 12-15.5 788-0) PLT (test code = See_Comment H [Automated 777-3) message] The sy stem which generated this result transmitted reference range : 166 - 358 10*3/ ?L. The reference r karishma was not used to interpret this result as normal/abnormal . MPV (test code = 10.2 fL 9.5-12.9 30829-1) NRBC/100 WBC (test See_Comment [Automat ed code = 9030553754) message] The system which generated this result transmitted reference range : 0.0 - 10.0 /100 WBCs. The refer ence range was not u sed to interpret th is result as normal/abnormal . NRBC x10^3 (test code <0.01 See_Comment [Auto mated = 2356352727) message] The s ystem which generated this result transmitted reference range : 10*3/?L. The reference range was not used to interpret this result as normal/abnormal . GRAN MAT (NEUT) % 48.6 % (test code = 770-8) IMM GRAN % (test code 0.60 % = 4622410943) LYMPH % (test code = 41.9 % 736-9) MONO % (test code = 6.3 % 5905-5) EOS % (test code = 2.2 % 713-8) BASO % (test code = 0.4 % 706-2) GRAN MAT x10^3(ANC) 5.09 10*3/uL 1.88-7.09 (test code = 1504270725) IMM GRAN x10^3 (test 0.06 10*3/uL 0-0.06 code = 4772201736) LYMPH x10^3 (test code 4.38 10*3/uL 1.32-3.29 H = 731-0) MONO x10^3 (test code 0.66 10*3/uL 0.33-0.92 = 742-7) EOS x10^3 (test code = 0.23 10*3/uL 0.03-0.39 711-2) BASO x10^3 (test code 0.04 10*3/uL 0.01-0.07 = 704-7) Lab Interpretation Abnormal (test code = 39141-8) [facility] [id number] 06:13:00 Test Item Value Reference Range Interpretation Comments POCT PREG (test code = 1605) negative On board controls acceptable with positive C Line (test code = 3574) POCT PREG LOT # (test code = 3575) [id number] POCT PREG TEST DATE (test code = 3576) Lab Interpretation (test code = Normal 55103-9) [facility]"
[2022-11-25 10:51] LABS: Specific Gravity 1.015 (1.005-1.030); Urine Bacteria <20 /HPF (<20); Urine Bilirubin NEGATIVE (Negative); Urine Blood Trace (Negative); Urine Clarity Turbid (Clear); Urine Color Light-Yellow (Yellow); Urine Glucose NEGATIVE (Negative); Urine Protein NEGATIVE (Negative); Urine RBC <5 /HPF (None Seen); Urine Urobilinogen Normal (Normal); Urine pH 7.5 (5.0-7.0)
[2022-11-25 11:21] LABS: Absolute Lymphocytes (CBC) 1.2 K/uL (0.7-4.9); Hematocrit 40.3 % (36.0-45.0); Lymphocytes % 20.1 % (15.3-44.8); MCV 85.2 fL (80-100); MPV 7.9 fL (7.6-11.3); RBC Red Blood Cell Count 4.73 M/uL (3.86-4.86)
[2022-11-25 11:33] LABS: ALT/SGPT 19 U/L (13-56); AST/SGOT 15 U/L (15-37); Alkaline Phosphatase 46 U/L (45-117); BUN Blood Urea Nitrogen 8 mg/dL (7-18); Bicarbonate 27 mEq/L (21-32); Bilirubin Total 0.2 mg/dL (0.2-1.0); Glomerular Filtration Rate 127 ml/min (=/>90); Glucose Level 116 mg/dL (74-106); Potassium 3.6 mEq/L (3.5-5.1); Protein, Total 7.4 g/dL (6.4-8.2); Sodium Level 137 mEq/L (136-145)
[2022-11-25 11:34] LABS: HCG, Quantitative < 1 mIU/mL (1-3)
--- NOTE | 2022-11-25 11:37 | ER ---
[facility]urse's Notes [facility] Name: Gisele Arechiga Age: 22 yrs Sex: Female : 2000 Arrival Date: 11/25/2022 Time: 09:57 Bed 20 Private MD: Diagnosis: Encounter for test, result negative Presentation: 11/25 10:04 Chief complaint: Patient states: Vomiting every morning for the past week, worse today, nj1 unsure if because at home test negative but last time she was home test was also negative. Vomit with certain smells or quick movements. Able to keep fluids down. Walks into triage room eating crackers. States she is cramping so severe. Coronavirus screen: Vaccine status: Patient reports being unvaccinated. Ebola Screen: Patient denies travel to an Ebola-affected area in the 21 days before illness onset. Initial Sepsis Screen: Does the patient meet any 2 criteria? No. Patient's initial sepsis screen is negative. Does the patient have a suspected source of infection? No. Patient's initial sepsis screen is negative. Risk Assessment: Do you want to hurt yourself or someone else? Patient reports no desire to harm self or others. Onset of symptoms was November 18, 2022. 10:04 Method Of Arrival: Ambulatory [facility] 10:04 Acuity: IRIS 3 nj1 Triage Assessment: 10:32 General: Appears in no apparent distress. uncomfortable, Behavior is cooperative. Pain: eh3 Complains of pain in abdomen. GI: Reports nausea, vomiting. 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 - Social history:: Smoking status: Patient denies any tobacco usage or history of. - Family history:: not pertinent. - Hospitalizations: : No recent hospitalization is reported. Screenin:33 [facility] ED Fall Risk Assessment (Adult) Score/Fall Risk Level 0 - 2 = Low Risk. Abuse eh3 screen: Denies threats or abuse. Denies injuries from another. Nutritional screening: No deficits noted. Tuberculosis screening: No symptoms or risk factors identified. Assessment: 10:33 General: Appears in no apparent distress. uncomfortable, Behavior is cooperative. Pain: eh3 Complains of pain in abdomen. Neuro: Level of Consciousness is awake, alert, obeys commands, Oriented to person, place, time, situation. Cardiovascular: Capillary refill < 3 seconds Patient's skin is warm and dry. Respiratory: Airway is patent Respiratory effort is even, unlabored, Respiratory pattern is regular, symmetrical. GI: Abdomen is round non-distended, Reports nausea, vomiting. : No signs and/or symptoms were reported regarding the genitourinary system. Derm: Skin is pink, warm \T\ dry. Musculoskeletal: Circulation, motion, and sensation intact. 11:30 Reassessment: Patient appears in no apparent distress at this time. Patient and/or eh3 family updated on plan of care and expected duration. Pain level reassessed. Patient is alert, oriented x 3, equal unlabored respirations, skin warm/dry/pink. Vital Signs: 10:04 BP 134 / 96; Pulse 75; Resp 18; Pulse Ox 100% ; Weight 97.52 kg; Height 5 ft. 4 in. ; nj1 Pain 10/10; 10:33 BP 106 / 69; Pulse 77; Resp 18; Pulse Ox 97% on R/A; eh3 11:30 BP 113 / 74; Pulse 84; Resp 18; Pulse Ox 97% on R/A; eh3 10:04 Body Mass Index 36.90 (97.52 kg, 162.56 cm) nj1 10:04 Pain Scale: Adult mn1 ED Course: 09:58 Patient arrived in ED. rg4 10:00 Bossman Mckeon MD is Attending Physician. rn 10:07 Triage completed. nj1 10:12 Arm band placed on right wrist. nj1 10:32 Naty Gleason, TALON is Primary Nurse. eh3 10:33 Patient has correct armband on for positive identification. Bed in low position. Call eh3 light in reach. Side rails up X2. Pulse ox on. NIBP on. 11:49 No provider procedures requiring assistance completed. IV discontinued, intact, eh3 bleeding controlled, No redness/swelling at site. Pressure dressing applied. Administered Medications: No medications were administered Medication: 11:50 VIS not applicable for this client. eh3 Outcome: 11:36 Discharge ordered by . rn 12:05 Patient left the ED. 3 Signatures: Bossman Mckeon MD MD rn Garcia, Rubi 4 Naty Gleason RN RN 3 Indira Rashid RN RN nj1 Corrections: (The following items were deleted from the chart) 10:12 10:07 PMHx: Bipolar disorder; nj1 nj1
--- NOTE | 2022-11-25 11:37 | EDPHYS ---
Physician Documentation [facility] Name: Gisele Arechiga Age: 22 yrs Sex: Female : 2000 Arrival Date: 11/25/2022 Time: 09:57 Bed 20 Private MD: ED Physician Bossman Mckeon HPI: 11/25 10:29 This 22 yrs old Female presents to ER via Ambulatory with complaints of rn Vomiting. 10:29 The patient presents to the emergency department with nausea, vomiting. Onset: The rn symptoms/episode began/occurred 1 week(s) ago. Possible causes: . The symptoms are aggravated by nothing. The symptoms are alleviated by nothing. Associated signs and symptoms: Pertinent positives: nausea, vomiting, Pertinent negatives: abdominal pain, fever, GI bleeding. Severity of symptoms: At their worst the symptoms were mild in the emergency department the symptoms are unchanged. The patient has experienced similar episodes in the past. The patient has been recently seen by a physician:. Pt reports lower abd cramping, nausea, vomiting in AM, for 1 week, feels identical to when last time she was , states urine preg neg at home. No fever. No blood in stool. No focal abd pain. . 10:29 Pt does not feel ill, no flu like symptoms. Reports had miscarriage last month and rn everything went back to normal and f/u visits were good.. 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 - Social history:: Smoking status: Patient denies any tobacco usage or history of. - Family history:: not pertinent. - Hospitalizations: : No recent hospitalization is reported. ROS: 10:29 Constitutional: Negative for fever, chills, and weight loss, Eyes: Negative for injury, rn pain, redness, and discharge, Neck: Negative for injury, pain, and swelling, Cardiovascular: Negative for chest pain, palpitations, and edema, Respiratory: Negative for shortness of breath, cough, wheezing, and pleuritic chest pain, Abdomen/GI: + abd cramps and nausea/vomiting MS/Extremity: Negative for injury and deformity, Skin: Negative for injury, rash, and discoloration, Neuro: Negative for headache, weakness, numbness, tingling, and seizure. Exam: 10:29 Constitutional: This is a well developed, well nourished patient who is awake, alert, rn and in no acute distress. Head/Face: Normocephalic, atraumatic. Cardiovascular: Regular rate and rhythm. No pulse deficits. Respiratory: No increased work of breathing, no retractions or nasal flaring. Abdomen/GI: soft, no focal tenderness, no peritoneal signs or guarding. Skin: Warm, dry MS/ Extremity: Pulses equal, no cyanosis. Neuro: Awake and alert, GCS 15 Vital Signs: 10:04 BP 134 / 96; Pulse 75; Resp 18; Pulse Ox 100% ; Weight 97.52 kg; Height 5 ft. 4 in. ; nj1 Pain 10/10; 10:33 BP 106 / 69; Pulse 77; Resp 18; Pulse Ox 97% on R/A; eh3 11:30 BP 113 / 74; Pulse 84; Resp 18; Pulse Ox 97% on R/A; eh3 10:04 Body Mass Index 36.90 (97.52 kg, 162.56 cm) nj1 10:04 Pain Scale: Adult nj1 MDM: 10:00 Patient medically screened. rn 11:35 Differential diagnosis: Nonspecific abd pain, viral gastroenteritis, gastroenteritis, rn , UTI. Data reviewed: vital signs, nurses notes, lab test result(s), and as a result, I will discharge patient. Counseling: I had a detailed discussion with the patient and/or guardian regarding: the historical points, exam findings, and any diagnostic results supporting the discharge/admit diagnosis, lab results, the need for outpatient follow up, to return to the emergency department if symptoms worsen or persist or if there are any questions or concerns that arise at home. Special discussion: I discussed with the patient/guardian in detail that at this point there is no indication for admission to the hospital. It is understood, however, that if the symptoms persist or worsen the patient needs to return immediately for re-evaluation. ED course: Urine and serum preg tests neg. Normal WBC. . 11/25 10:13 Order name: Test, Urine; Complete Time: 10:53 rn 11/25 10:13 Order name: Urinalysis w/ reflexes; Complete Time: 10:53 rn 11/25 10:53 Order name: CBC with Diff; Complete Time: 11:35 rn 11/25 10:53 Order name: CMP; Complete Time: 11:35 rn 11/25 10:53 Order name: HCG-Quantitative; Complete Time: 11:35 rn 11/25 10:53 Order name: IV Saline Lock; Complete Time: 11:10 rn 11/25 10:53 Order name: Labs collected and sent; Complete Time: 11:10 rn Administered Medications: No medications were administered Disposition Summary: 11/25/22 11:36 Discharge Ordered Location: Home rn Problem: new rn Symptoms: have improved rn Condition: Stable rn Diagnosis - Encounter for test, result negative rn Followup: rn - With: Private Physician - When: As needed - Reason: Recheck today's complaints, Re-evaluation by your physician Discharge Instructions: - Discharge Summary Sheet rn - Vomiting, Adult rn Forms: - Medication Reconciliation Form rn - Thank You Letter rn - Antibiotic digital media intern - Prescription Opioid Use rn - [email or web address] rn - Work release form eh3 Signatures: Dispatcher [employer] EDBossman Orozco MD MD rn Jaco, Norma, RN RN nj1 Corrections: (The following items were deleted from the chart) 10:12 10:07 PMHx: Bipolar disorder; nj1 nj1
[2022-11-25 12:12] VITALS: O2SAT 97
[2022-11-25 12:13] VITALS: BP 113/74
== END 2022-11-25 12:05 | disposition home or self-care (01) ==
LOC: ER 09:57
DX: Z32.02 Encounter for pregnancy test, result negative (principal)
CPT/HCPCS: 36415; 80053; 81001; 81025; 84702; 85025

== ENCOUNTER 2023-01-17 15:01 | Emergency (ER) | payer SELFPAY ==
--- OUTSIDE RECORDS SUMMARY | 2023-01-17 15:09 | XMS REPORT | Continuity of Care Document ---
:2000 Author Organization [facility] t Address [address] [place] [address] Care Team Providers Name Role Phone Francesca Walsh Primary Care Physician [facility] Attending Clinician [phone] ALVARO HERNDON Attending Clinician Unavailable Alvaro Herndon MD Attending Clinician Doctor Unassigned, [place] Attending Clinician Unavailable PRAKASH ALLAN Attending Clinician Unavailable Prakash Wells Attending Clinician Felipa Castellanos Attending Clinician [phone] FELIPA BRISENO Attending Clinician Unavailable Annabella Samayoa NP Attending Clinician Lise Garcia RN Attending Clinician Unavailable Jake Jonas MD Attending Clinician Morena Benton DO Attending Clinician MORENA BENTON Attending Clinician Unavailable [place] Attending Clinician [place] Attending Clinician Unavailable ALVARO HERNDON Admitting Clinician Unavailable PRAKASH ALLAN Admitting Clinician Unavailable Payers Payer Name Policy Type Policy Number Effective Date Expiration Date S ource MEDICAID PENDING PENDING 2020 2021 00:00:00 00:00:00 Problems Condition Condition Condition Status Onset Resolution Last Treating Co mments Source Name Details Category Date Date Treatment Clinician Date Well woman Well woman Disease Active U nivers exam exam 5-18 ity of 00:00: [place] [facility] Obesity Obesity Disease Active Univers (BMI (BMI 5-18 ity of 30-39.9) 30-39.9) 00:00: [place] [facility] Pilonidal Pilonidal Disease Active Uni vers cyst cyst 5-18 ity of 00:00: Medical [place] No known No known Disease Unive rs active active ity of problems problems [facility] Allergies, Adverse Reactions, Alerts Allergy Allergy Status Severity Reaction(s) Onset Inactive Treating Comm ents Source Name Type Date Date Clinician Cat Propensi Active Hives Univers Dander ty to 5-18 ity of adverse 00:00: [place] reaction [facility] s Branch CAT DRUG Active Hives Univers DANDER INGREDI 5-18 ity of 00:00: [place] 00 Medical Branch Penicill Propensi Active Hives Univer s ins ty to 9-16 ity of adverse 00:00: [place] reaction [facility] s Branch PENICILL Drug Active Hives 0 Univers INS Class 9-16 ity of 00:00: [place] [facility] Penicill Propensi Active Hives Univer s ins ty to 9-16 ity of adverse 00:00: [place] reaction Medical s Branch Social History Social Habit Start Date Stop Date Quantity Comments Source Gender identity Universit y of [facility] Sexual orientation Univer sity of [place] [facility] [place] History of tobacco Cigarette Smoker University of use [facility] History [facility] University o f Alcohol Frequency [facility] edical [place] History [facility] o f Alcohol Std Drinks [place] [facility] [place] History [facility] o f Alcohol Binge [facility] al [place] Exposure to 2022-06-22 2022-07-02 Not sure University of SARS-CoV-2 (event) 00:00:00 12:36:00 [facility] Alcohol intake 2022-07-02 2022-07-02 Current drinker Unive rsity of 00:00:00 00:00:00 of alcohol [facility] (finding) Branch History of Social 2020-10-17 2020-10-17 Univers ity of function 00:00:00 00:00:00 [facility] Cigarettes smoked 2020-10-17 2020-10-17 Univers ity of current (pack per 00:00:00 00:00:00 [place] ) - Reported Branch Tobacco use and 2020-10-17 2020-10-17 Former smokeless Uni versity of exposure 00:00:00 00:00:00 tobacco user [place] [facility] Tobacco Comment 2020-10-17 2020-10-17 8-10 cigarettes a Un iversity of 00:00:00 00:00:00 day [facility] Alcohol Comment 2020-10-17 2020-10-17 socially Universit y of 00:00:00 00:00:00 [facility] Sex Assigned At [birth year] Universit y of 00:00:00 00:00:00 [facility] Smoking Status Start Date Stop Date Source Smokes tobacco daily 2020-10-17 00:00:00 Univers ity of [facility] Unknown if ever smoked [facility]it y of [facility] Medications Ordered Filled Start Stop Current Ordering Indication Dosage Frequency Signature Comments Components Source Medication Medication Date Date Medication? Clinician (SIG) Name Name iopamidol 2022- No [id number] 80mL 80 mL, U nivers (ISOVUE 11-27 Intravenou ity o f 370-500 mL) 07:15: 06:24 s, ONCE, 1 [place] injection 00 :00 dose, On Medica l 80 mL [facility] 11/27/22 at 0215, Routine NaCl 0.9% 2022- No 1000mL at 999 Uni vers (NS) bolus 11-27 mL/hr, ity of infusion 05:30: 06:58 1,000 mL, [place] as 1,000 mL 00 :00 IV Medical Infusion, Branch ONCE, 1 dose, On [facility] 11/27/22 at 0030, STAT metoclopram 2022- No 10mg 10 mg, Uni vers shade HCl 11-27 Slow IV ity of (REGLAN) 04:30: 05:20 [place], [place] injection 00 :00 ONCE, 1 Medical 10 mg dose, On Branch 11/26/22 at 2330, SHALOM metoclopram 2022-0 Yes [id number] 10mg Take 1 Univers shade HCl 10 6-28 tablet by ity of mg tablet 00:00: mouth [place] 00 every 6 Medical (six) Branch hours. famotidine 2022-0 Yes [id number] 20mg Take 1 U nivers 20 mg 6-28 tablet by ity of tablet 00:00: mouth in [place] 00 the Medical morning Branch and 1 tablet in the evening. metoclopram 2022-0 Yes [id number] 10mg Take 1 Univers shade HCl 10 6-28 tablet by ity of mg tablet 00:00: mouth [place] 00 every 6 Medical (six) Branch hours. famotidine 2022-0 Yes [id number] 20mg Take 1 U nivers 20 mg 6-28 tablet by ity of tablet 00:00: mouth in [place] 00 the Medical morning Branch and 1 tablet in the evening. ibuprofen 2022- No 600mg 600 mg, Uni vers (IBU) 07-02 Oral, ity of tablet 600 18:30: 18:57 ONCE, 1 [place] mg 00 :00 dose, On Medical e Branch 07/02/22 at 1230, SHALOM clindamycin 2021- No 450mg 450 mg, U nivers (CLEOCIN 09-13 Oral, ity of HCL) 08:00: 06:55 ONCE, 1 [place] capsule 450 00 :00 dose, On [facility] walter [facility] Branch 09/13/21 at 0300, SHALOM
Re ason for Anti-Infec tive: Documented Infection< br>Documen jill Infection Site: Skin / Soft Tissue
Duration of Therapy: Other (see Comments)< br>Restric jill use approved by: ED PROVIDER<b r>Indicati on for Clindamyci n use: pilonidal cyst allergic to PCN clindamycin 2021- No [id number] 450mg Take 3 Univers 150 mg 09-13- capsules ity of capsule 00:00: 04:59 by mouth 3 [place] 00 :00 (three) Medical times Branch daily for 10 days. norgestimat Yes [id number] 1{tbl} Take 1 Univers e-ethinyl 6-08 tablet by ity o f estradioL 00:00: mouth [place] (ORTHO 00 daily. [place] [address],) 0.18/0.215/ 0.25 mg-35 mcg (28) tablet norgestimat 2021-0 Yes [id number] 1{tbl} Take 1 Univers e-ethinyl 6-08 tablet by ity o f estradioL 00:00: mouth [place] (ORTHO 00 daily. [place] [address],) 0.18/0.215/ 0.25 mg-35 mcg (28) tablet norgestimat 2021-0 Yes [id number] 1{tbl} Take 1 Univers e-ethinyl 6-08 tablet by ity o f estradioL 00:00: mouth [place] (ORTHO 00 daily. [place] [address],) 0.18/0.215/ 0.25 mg-35 mcg (28) tablet norgestimat 2020-0 Yes [id number] 1{tbl} Take 1 Univers e-ethinyl 6-08 tablet by ity o f estradioL 00:00: mouth [place] (ORTHO 00 daily. [place] [address],) 0.18/0.215/ 0.25 mg-35 mcg (28) tablet norgestimat 2020-0 Yes [id number] 1{tbl} Take 1 Univers e-ethinyl 6-08 tablet by ity o f estradioL 00:00: mouth [place] (ORTHO 00 daily. [place] [address],) 0.18/0.215/ 0.25 mg-35 mcg (28) tablet norgestimat 2020-0 Yes [id number] 1{tbl} Take 1 Univers e-ethinyl 6-08 tablet by ity o f estradioL 00:00: mouth [place] (ORTHO 00 daily. [place] [address],) 0.18/0.215/ 0.25 mg-35 mcg (28) tablet norgestimat 2020-0 Yes [id number] 1{tbl} Take 1 Univers e-ethinyl 6-08 tablet by ity o f estradioL 00:00: mouth [place] (ORTHO 00 daily. [place] [address],) 0.18/0.215/ 0.25 mg-35 mcg (28) tablet norgestimat 2021-0 Yes [id number] 1{tbl} Take 1 Univers e-ethinyl 6-08 tablet by ity o f estradioL 00:00: mouth [place] (ORTHO 00 daily. [place] [address],) 0.18/0.215/ 0.25 mg-35 mcg (28) tablet norgestimat 2021-0 Yes [id number] 1{tbl} Take 1 Univers e-ethinyl 6-08 tablet by ity o f estradioL 00:00: mouth [place] (ORTHO 00 daily. [place] [address],) 0.18/0.215/ 0.25 mg-35 mcg (28) tablet norgestimat 2021-0 Yes [id number] 1{tbl} Take 1 Univers e-ethinyl 6-08 tablet by ity o f estradioL 00:00: mouth [place] (ORTHO 00 daily. [place] [address],) 0.18/0.215/ 0.25 mg-35 mcg (28) tablet norgestimat 2021-0 Yes [id number] 1{tbl} Take 1 Univers e-ethinyl 6-08 tablet by ity o f estradioL 00:00: mouth [place] (ORTHO 00 daily. [place] [address],) 0.18/0.215/ 0.25 mg-35 mcg (28) tablet norgestimat 2021-0 Yes [id number] 1{tbl} Take 1 Univers e-ethinyl 6-08 tablet by ity o f estradioL 00:00: mouth [place] (ORTHO 00 daily. [place] [address],) 0.18/0.215/ 0.25 mg-35 mcg (28) tablet medroxyPROG 2021-0 2021- No [id number] 10mg Take 1 Univers ESTERone 5-20 05-31 tablet by ity o f (PROVERA) 00:00: 04:59 mouth [place] 10 mg 00 :00 daily for Medical tablet 10 days. [place] medroxyPROG 2021-0 2021- No [id number] 10mg Take 1 Univers ESTERone 5-20 05-31 tablet by ity o f (PROVERA) 00:00: 04:59 mouth [place] 10 mg 00 :00 daily for Medical tablet 10 days. Branch medroxyPROG 2021-0 2020- No [id number] 10mg Take 1 Univers ESTERone 5-20 05-31 tablet by ity o f (PROVERA) 00:00: 04:59 mouth [place] 10 mg 00 :00 daily for Medical tablet 10 days. Branch medroxyPROG 2021-0 2020- No [id number] 10mg Take 1 Univers ESTERone 5-20 05-31 tablet by ity o f (PROVERA) 00:00: 04:59 mouth [place] 10 mg 00 :00 daily for Medical tablet 10 days. Branch phentermine 2020-0 Yes 37.5mg Take 37.5 [...] [place] 18 every Medical morning. Branch phentermine 2020- Yes 37.5mg Take 37.5 Univers 37.5 mg [...] mouth [place] 18 every Medical morning. Branch ketorolac No 30mg 30 mg, Unive rs (TORADOL) 3-10 03-10 Slow IV ity of injection 05:45: 05:42 [place], [place] 30 mg 00 :00 ONCE, 1 Medical dose, [facility] 08/08/20 at 2345, SHALOM
Fa culty member [...] (severe pain, alternate with ibuprofen) . sulfamethox 2017- Yes 2{tbl} Take 2 Un fabrice azole-trime [...] times Branch mg per daily. tablet traMADOL 2018 Yes 50mg Take 1-2 Unive rs (ULTRAM) 50 9-16 tablets by it y of mg tablet 00:00: mouth [place] 00 every 8 Medical (eight) Branch hours as needed (severe pain, alternate with ibuprofen) . sulfamethox 2017-0 Yes 2{tbl} Take 2 Un fabrice azole-trime [...] Name HPV9 2020-10-17 Completed University of 00:00:00 [facility] HPV9 2020-10-17 Completed University of 00:00:00 [facility] HPV9 2020-10-17 Completed University of 00:00:00 [facility] HPV9 2020-10-17 Completed University of 00:00:00 [facility] HPV9 2020-10-17 Completed University of 00:00:00 [facility] HPV9 2020-10-17 Completed University of 00:00:00 [facility] HPV9 2020-10-17 Completed University of 00:00:00 [facility] HPV9 2020-10-17 Completed University of 00:00:00 [facility] HPV9 2020-10-17 Completed University of 00:00:00 [facility] HPV9 2020-10-17 Completed University of 00:00:00 [facility] HPV9 2020-10-17 Completed University of 00:00:00 [facility] HPV9 2020-10-17 Completed University of 00:00:00 [facility] HPV9 2020-10-17 Completed University of 00:00:00 [facility] HPV9 2020-10-17 Completed University of 00:00:00 [facility] HPV9 2020-10-17 Completed University of 00:00:00 [facility] HPV9 2020-10-17 Completed University of 00:00:00 [facility] HPV9 2020-10-17 Completed University of 00:00:00 [facility] HPV9 2020-10-17 Completed University of 00:00:00 [facility] HPV9 2020-10-17 Completed University of 00:00:00 [facility] HPV9 2020-10-17 Completed University of 00:00:00 [facility] HPV9 2020-10-17 Completed University of 00:00:00 [facility] HPV9 2020-10-17 Completed University of 00:00:00 [facility] HPV9 2020-10-17 Completed University of 00:00:00 [facility]9 2020-10-17 Completed University of 00:00:00 [place] [facility] HPV9 2020-10-17 Completed University of 00:00:00 [place] [facility] HPV9 2020-10-17 Completed University of 00:00:00 [place] [facility] HPV 2018-09-15 Completed University of 00:00:00 [facility] Branch Meningococcal 2018-09-15 Completed University of Vaccine 00:00:00 [place] [facility] HPV 2018-09-15 Completed University of 00:00:00 [place] [facility] Meningococcal 2018-09-15 Completed University of Vaccine 00:00:00 [place] [facility] HPV 2018-09-15 Completed University of 00:00:00 [place] [facility] Meningococcal 2018-09-15 Completed University of Vaccine 00:00:00 [place] [facility] HPV 2018-09-15 Completed University of 00:00:00 [facility] Branch Meningococcal 2018-09-15 Completed University of Vaccine 00:00:00 [facility] Branch HPV 2018-09-15 Completed University of 00:00:00 [facility] Branch Meningococcal 2018-09-15 Completed University of Vaccine 00:00:00 [facility] Branch HPV 2018-09-15 Completed University of 00:00:00 [facility] Branch Meningococcal 2018-09-15 Completed University of Vaccine 00:00:00 [facility] Branch HPV 2018-09-15 Completed University of 00:00:00 [facility] Branch Meningococcal 2018-09-15 Completed University of Vaccine 00:00:00 [facility] Branch HPV 2018-09-15 Completed University of 00:00:00 [facility] Branch Meningococcal 2018-09-15 Completed University of Vaccine 00:00:00 [place] [facility] HPV 2018-09-15 Completed University of 00:00:00 [facility] Branch Meningococcal 2018-09-15 Completed University of Vaccine 00:00:00 [facility] Branch HPV 2018-09-15 Completed University of 00:00:00 [place] [facility] Meningococcal 2018-09-15 Completed University of Vaccine 00:00:00 [place] [facility] HPV 2018-09-15 Completed University of 00:00:00 [place] [facility] Meningococcal 2018-09-15 Completed University of Vaccine 00:00:00 [facility] Branch HPV 2018-09-15 Completed University of 00:00:00 [place] [facility] Meningococcal 2018-09-15 Completed University of Vaccine 00:00:00 [place] [facility] HPV 2018-09-15 Completed University of 00:00:00 [facility] Meningococcal 2018-09-15 Completed University of Vaccine 00:00:00 [facility] HPV 2018-09-15 Completed University of 00:00:00 [facility] Meningococcal 2018-09-15 Completed University of Vaccine 00:00:00 [facility] HPV 2018-09-15 Completed University of 00:00:00 [facility] Meningococcal 2018-09-15 Completed University of Vaccine 00:00:00 [facility] HPV 2018-09-15 Completed University of 00:00:00 [facility] Meningococcal 2018-09-15 Completed University of Vaccine 00:00:00 [facility] HPV 2018-09-15 Completed University of 00:00:00 [facility] Meningococcal 2018-09-15 Completed University of Vaccine 00:00:00 [facility] HPV 2018-09-15 Completed University of 00:00:00 [facility] Meningococcal 2018-09-15 Completed University of Vaccine 00:00:00 [facility] HPV 2018-09-15 Completed University of 00:00:00 [facility] Meningococcal 2018-09-15 Completed University of Vaccine 00:00:00 [facility] HPV 2018-09-15 Completed University of 00:00:00 [facility] Meningococcal 2018-09-15 Completed University of Vaccine 00:00:00 [facility] HPV 2018-09-15 Completed University of 00:00:00 [facility] Meningococcal 2018-09-15 Completed University of Vaccine 00:00:00 [facility] HPV 2018-09-15 Completed University of 00:00:00 [facility] Meningococcal 2018-09-15 Completed University of Vaccine 00:00:00 [facility] HPV 2018-09-15 Completed University of 00:00:00 [facility] Meningococcal 2018-09-15 Completed University of Vaccine 00:00:00 [facility] HPV 2018-09-15 Completed University of 00:00:00 [facility] Meningococcal 2018-09-15 Completed University of Vaccine 00:00:00 [facility] HPV 2018-09-15 Completed University of 00:00:00 [facility] Meningococcal 2018-09-15 Completed University of Vaccine 00:00:00 [facility] HPV 2018-09-15 Completed University of 00:00:00 [facility] Meningococcal 2018-09-15 Completed University of Vaccine 00:00:00 [facility] HEPATITIS A 2012-01-21 Completed University of 00:00:00 [facility] Meningococcal 2012-01-21 Completed University of Vaccine 00:00:00 [facility] TDAP 2012-01-21 Completed University of 00:00:00 [facility] Varicella 2012-01-21 Completed University of (varivax)(chicken 00:00:00 [place] [facility] pox) Branch HEPATITIS A 2012-01-21 Completed University of 00:00:00 [facility] Meningococcal 2012-01-21 Completed University of Vaccine 00:00:00 [facility] TDAP 2012-01-21 Completed University of 00:00:00 [facility] Varicella 2012-01-21 Completed University of (varivax)(chicken 00:00:00 [place] [facility]ical pox) Branch HEPATITIS A 2012-01-21 Completed University of 00:00:00 [facility] Meningococcal 2012-01-21 Completed University of Vaccine 00:00:00 [facility] TDAP 2012-01-21 Completed University of 00:00:00 [facility] Varicella 2012-01-21 Completed University of (varivax)(chicken 00:00:00 [place] [facility] edical pox) Branch HEPATITIS A 2012-01-21 Completed University of 00:00:00 [facility] Meningococcal 2012-01-21 Completed University of Vaccine 00:00:00 [facility] TDAP 2012-01-21 Completed University of 00:00:00 [facility] Varicella 2012-01-21 Completed University of (varivax)(chicken 00:00:00 [place] [facility]ical pox) Branch HEPATITIS A 2012-01-21 Completed University of 00:00:00 [facility] Meningococcal 2012-01-21 Completed University of Vaccine 00:00:00 [facility] TDAP 2012-01-21 Completed University of 00:00:00 [facility] Varicella 2012-01-21 Completed University of (varivax)(chicken 00:00:00 [place] M edical pox) Branch HEPATITIS A 2012-01-21 Completed University of 00:00:00 [facility] Meningococcal 2012-01-21 Completed University of Vaccine 00:00:00 [facility] TDAP 2012-01-21 Completed University of 00:00:00 [facility] Varicella 2012-01-21 Completed University of (varivax)(chicken 00:00:00 [place] M edical pox) Branch HEPATITIS A 2012-01-21 Completed University of 00:00:00 [facility] Meningococcal 2012-01-21 Completed University of Vaccine 00:00:00 [facility] TDAP 2012-01-21 Completed University of 00:00:00 [facility] Varicella 2012-01-21 Completed University of (varivax)(chicken 00:00:00 [place] M [facility]ical pox) Branch HEPATITIS A 2012-01-21 Completed University of 00:00:00 [facility] Meningococcal 2012-01-21 Completed University of Vaccine 00:00:00 [facility] TDAP 2012-01-21 Completed University of 00:00:00 [facility] Varicella 2012-01-21 Completed University of (varivax)(chicken 00:00:00 [place] M edical pox) Branch HEPATITIS A 2012-01-21 Completed University of 00:00:00 [facility] Meningococcal 2012-01-21 Completed [facility] 00:[facility]:00 [facility] Varicella 2012-01-21 Completed University of (varivax)(chicken 00:00:00 [place] M edical pox) Branch HEPATITIS A 2012-01-21 Completed University of 00:00:00 [facility] Meningococcal 2012-01-21 Completed University of Vaccine 00:00:00 [facility] TDAP 2012-01-21 Completed University of 00:00:00 [facility] Varicella 2012-01-21 Completed University of (varivax)(chicken 00:00:00 [place] M edical pox) Branch HEPATITIS A 2012-01-21 Completed University of 00:00:00 [facility] Meningococcal 2012-01-21 Completed University of Vaccine 00:00:00 [facility] TDAP 2012-01-21 Completed University of 00:00:00 [facility] Varicella 2012-01-21 Completed University of (varivax)(chicken 00:00:00 [place] M edical pox) Branch HEPATITIS A 2012-01-21 Completed University of 00:00:00 [facility] Meningococcal 2012-01-21 Completed University of Vaccine 00:00:00 [facility] TDAP 2012-01-21 Completed University of 00:00:00 [facility] Varicella 2012-01-21 Completed University of (varivax)(chicken 00:00:00 [place] M edical pox) Branch HEPATITIS A 2012-01-21 Completed University of 00:00:00 [facility] Meningococcal 2012-01-21 Completed University of Vaccine 00:00:00 [facility] TDAP 2012-01-21 Completed University of 00:00:00 [facility] Varicella 2012-01-21 Completed University of (varivax)(chicken 00:00:00 [place] M [facility]ical pox) Branch HEPATITIS A 2012-01-21 Completed University of 00:00:00 [facility] Meningococcal 2012-01-21 Completed University of Vaccine 00:00:00 [facility] TDAP 2012-01-21 Completed University of 00:00:00 [facility] Varicella 2012-01-21 Completed University of (varivax)(chicken 00:00:00 [place] M edical pox) Branch HEPATITIS A 2012-01-21 Completed University of 00:00:00 [facility] Meningococcal 2012-01-21 Completed [facility] University of 00:00:00 [facility] Varicella 2012-01-21 Completed University of (varivax)(chicken 00:00:00 [place] M edical pox) Branch HEPATITIS A 2012-01-21 Completed University of 00:00:00 [facility] Meningococcal 2012-01-21 Completed University [facility] University of 00:00:00 [facility] Varicella 2012-01-21 Completed University of (varivax)(chicken 00:00:00 [place] M edical pox) Branch HEPATITIS A 2012-01-21 Completed University of 00:00:00 [facility] Meningococcal 2012-01-21 Completed University of Vaccine 00:00:00 [facility] TDAP 2012-01-21 Completed University of 00:00:00 [facility] Varicella 2012-01-21 Completed University of (varivax)(chicken 00:00:00 [place] M edical pox) Branch HEPATITIS A 2012-01-21 Completed University of 00:00:00 [facility] Meningococcal 2012-01-21 Completed University of Vaccine 00:00:00 [facility] TDAP 2012-01-21 Completed University of 00:00:00 [facility] Varicella 2012-01-21 Completed University of (varivax)(chicken 00:00:00 [place] M edical pox) Branch HEPATITIS A 2012-01-21 Completed University of 00:00:00 [facility] Meningococcal 2012-01-21 Completed University of Vaccine 00:00:00 [facility] TDAP 2012-01-21 Completed University of 00:00:00 [facility] Varicella 2012-01-21 Completed University of (varivax)(chicken 00:00:00 [place] M edical pox) Branch HEPATITIS A 2012-01-21 Completed University of 00:00:00 [facility] [facility] Meningococcal 2012-01-21 Completed [facility] Vaccine 00:00:00 [facility] TDAP 2012-01-21 Completed [facility] 00:00:00 [facility] Varicella 2012-01-21 Completed [facility] of (varivax)(chicken 00:00:00 [place] [facility] pox) [facility] HEPATITIS A 2012-01-21 Completed [facility] 00:00:00 [facility] Meningococcal 2012-01-21 Completed [facility] 00:00:00 [facility] Varicella 2012-01-21 Completed [facility] (varivax)(chicken 00:00:00 [place] [facility] pox) [facility] HEPATITIS A 2012-01-21 Completed [facility] 00:00:00 [facility] Meningococcal 2012-01-21 Completed [facility] Vaccine 00:00:00 [facility] TDAP 2012-01-21 Completed [facility] 00:00:00 [facility] Varicella 2012-01-21 Completed [facility] (varivax)(chicken 00:00:00 [place] [facility] pox) [facility] HEPATITIS A 2012-01-21 Completed [facility] 00:00:00 [facility] Meningococcal 2012-01-21 Completed [facility] Vaccine 00:00:00 [facility] TDAP 2012-01-21 Completed [facility] 00:00:00 [facility] Varicella 2012-01-21 Completed [facility] (varivax)(chicken 00:00:00 [place] [facility] pox) [facility] HEPATITIS A 2012-01-21 Completed [facility] 00:00:00 [facility] Meningococcal 2012-01-21 Completed [facility] Vaccine 00:00:00 [facility] TDAP 2012-01-21 Completed [facility] 00:00:00 [facility] Varicella 2012-01-21 Completed [facility] (varivax)(chicken 00:00:00 [place] [facility] pox) [facility] HEPATITIS A 2012-01-21 Completed [facility] 00:00:00 [facility] Meningococcal 2012-01-21 Completed [facility] Vaccine 00:00:00 [facility] TDAP 2012-01-21 Completed [facility] 00:00:00 [facility] Varicella 2012-01-21 Completed [facility] (varivax)(chicken 00:00:00 [place] [facility] pox) [facility] HEPATITIS A 2012-01-21 Completed [facility] 00:00:00 [facility] Meningococcal 2012-01-21 Completed [facility] Vaccine 00:00:00 [facility] TDAP 2012-01-21 Completed [facility] 00:00:00 [facility] Varicella 2012-01-21 Completed [facility] of (varivax)(chicken 00:00:00 [facility] edical pox) Branch MMR 2005-01-08 Completed [facility] of 00:00:00 [facility] MMR 2005-01-08 Completed [facility] of 00:00:00 [facility] MMR 2005-01-08 Completed [facility] of 00:00:00 [facility] MMR 2005-01-08 Completed [facility] of 00:00:00 [facility] MMR 2005-01-08 Completed [facility] 00:00:00 [facility] MMR 2005-01-08 Completed [facility] 00:00:00 [facility] MMR 2005-01-08 Completed [facility] of 00:00:00 [facility] MMR 2005-01-08 Completed [facility] of 00:00:00 [facility] MMR 2005-01-08 Completed [facility] of 00:00:00 [facility] MMR 2005-01-08 Completed [facility] of 00:00:00 [facility] MMR 2005-01-08 Completed [facility] of 00:00:00 [facility] MMR 2005-01-08 Completed [facility] 00:00:00 [facility] MMR 2005-01-08 Completed [facility] of 00:00:00 [facility] MMR 2005-01-08 Completed [facility] of 00:00:00 [facility] MMR 2005-01-08 Completed [facility] of 00:00:00 [facility] MMR 2005-01-08 Completed [facility] of 00:00:00 [facility] MMR 2005-01-08 Completed [facility] of 00:00:00 [facility] MMR 2005-01-08 Completed [facility] of 00:00:00 [facility] MMR 2005-01-08 Completed [facility] of 00:00:00 [facility] MMR 2005-01-08 Completed [facility] of 00:00:00 [facility] MMR 2005-01-08 Completed [facility] of 00:00:00 [facility] MMR 2005-01-08 Completed [facility] of 00:00:00 [facility] MMR 2005-01-08 Completed [facility] of 00:00:00 [facility] MMR 2005-01-08 Completed [facility] of 00:00:00 [facility] MMR 2005-01-08 Completed [facility] of 00:00:00 [facility] MMR 2005-01-08 Completed [facility] 00:00:00 [facility] DTAP 2004-12-07 Completed [facility] of 00:00:00 [facility] MMR 2004-12-07 Completed [facility] of 00:00:00 [facility] Pneumococcal 13 2004-12-07 Completed Universit y of Conjugate, PCV13 00:00:00 [facility] dical (Prevnar 13) Branch Polio (IPV/OPV) 2004-12-07 Completed Universit y of 00:00:00 [facility] Varicella 2004-12-07 Completed [facility] (varivax)(chicken 00:00:00 [place] [facility] pox) [facility] DTAP 2004-12-07 Completed [facility] of 00:00:00 [facility] MMR 2004-12-07 Completed [facility] 00:00:00 [facility] Pneumococcal 13 2004-12-07 Completed Universit y of Conjugate, PCV13 00:00:00 [facility] dical (Prevnar 13) Branch Polio (IPV/OPV) 2004-12-07 Completed [facility]it y of 00:00:00 [facility] Varicella 2004-12-07 Completed [facility] (varivax)(chicken 00:00:00 [place] [facility] pox) [facility] DTAP 2004-12-07 Completed [facility] of 00:00:00 [facility] MMR 2004-12-07 Completed [facility] 00:00:00 [facility] Pneumococcal 13 2004-12-07 Completed Universit y of Conjugate, PCV13 00:00:00 [facility] dical (Prevnar 13) Branch Polio (IPV/OPV) 2004-12-07 Completed [facility]it y of 00:00:00 [facility] Varicella 2004-12-07 Completed [facility] (varivax)(chicken 00:00:00 [place] [facility] pox) [facility] DTAP 2004-12-07 Completed [facility] of 00:00:00 [facility] MMR 2004-12-07 Completed [facility] 00:00:00 [facility] Pneumococcal 13 2004-12-07 Completed [facility]it y of Conjugate, PCV13 00:00:00 [place] [facility] (Prevnar 13) Branch Polio (IPV/OPV) 2004-12-07 Completed [facility]it [facility] of 00:00:00 [facility] Varicella 2004-12-07 Completed [facility] (varivax)(chicken 00:00:00 [place] [facility] pox) [facility] DTAP 2004-12-07 Completed [facility] 00:00:00 [facility] MMR 2004-12-07 Completed [facility] 00:00:00 [facility] Pneumococcal 13 2004-12-07 Completed Universit y of Conjugate, PCV13 00:00:00 [facility] dical (Prevnar 13) Branch Polio (IPV/OPV) 2004-12-07 Completed [facility]it y of 00:00:00 [facility] Varicella 2004-12-07 Completed [facility] (varivax)(chicken 00:00:00 [place] [facility] pox) [facility] DTAP 2004-12-07 Completed [facility] of 00:00:00 [facility] MMR 2004-12-07 Completed [facility] 00:00:00 [facility] Pneumococcal 13 2004-12-07 Completed Universit y of Conjugate, PCV13 00:00:00 [facility] dical (Prevnar 13) Branch Polio (IPV/OPV) 2004-12-07 Completed [facility]it y of 00:00:00 [facility] Varicella 2004-12-07 Completed [facility] (varivax)(chicken 00:00:00 [place] [facility] pox) [facility] DTAP 2004-12-07 Completed [facility] of 00:00:00 [facility] MMR 2004-12-07 Completed [facility] of 00:00:00 [facility] Pneumococcal 13 2004-12-07 Completed Universit y of Conjugate, PCV13 00:00:00 [facility] dical (Prevnar 13) Branch Polio (IPV/OPV) 2004-12-07 Completed [facility]it y of 00:00:00 [facility] Varicella 2004-12-07 Completed [facility] (varivax)(chicken 00:00:00 [place] [facility] pox) [facility] DTAP 2004-12-07 Completed [facility] of 00:00:00 [facility] MMR 2004-12-07 Completed [facility] of 00:00:00 [facility] Pneumococcal 13 2004-12-07 Completed Universit y of Conjugate, PCV13 00:00:00 [facility] dical (Prevnar 13) Branch Polio (IPV/OPV) 2004-12-07 Completed [facility]it y of 00:00:00 [facility] Varicella 2004-12-07 Completed [facility] (varivax)(chicken 00:00:00 [place] [facility] pox) [facility] DTAP 2004-12-07 Completed [facility] 00:00:00 [facility] MMR 2004-12-07 Completed [facility] 00:00:00 [facility] Pneumococcal 13 2004-12-07 Completed [facility]it y of Conjugate, PCV13 00:00:00 [place] [facility] (Prevnar 13) Branch Polio (IPV/OPV) 2004-12-07 Completed [facility]it y of 00:00:00 [facility] Varicella 2004-12-07 Completed [facility] (varivax)(chicken 00:00:00 [place] [facility] pox) [facility] DTAP 2004-12-07 Completed [facility] of 00:00:00 [facility] MMR 2004-12-07 Completed [facility] of 00:00:00 [facility] Pneumococcal 13 2004-12-07 Completed Universit y of Conjugate, PCV13 00:00:00 [facility] dical (Prevnar 13) Branch Polio (IPV/OPV) 2004-12-07 Completed [facility]it y of 00:00:00 [facility] Varicella 2004-12-07 Completed [facility] (varivax)(chicken 00:00:00 [place] [facility] pox) [facility] DTAP 2004-12-07 Completed [facility] 00:00:00 [facility] MMR 2004-12-07 Completed [facility] of 00:00:00 [facility] Pneumococcal 13 2004-12-07 Completed Universit y of Conjugate, PCV13 00:00:00 [facility] dical (Prevnar 13) Branch Polio (IPV/OPV) 2004-12-07 Completed [facility]it y of 00:00:00 [facility] Varicella 2004-12-07 Completed [facility] (varivax)(chicken 00:00:00 [place] [facility] pox) [facility] DTAP 2004-12-07 Completed [facility] of 00:00:00 [facility] MMR 2004-12-07 Completed [facility] 00:00:00 [facility] Pneumococcal 13 2004-12-07 Completed Universit y of Conjugate, PCV13 00:00:00 [place] [facility] (Prevnar 13) Branch Polio (IPV/OPV) 2004-12-07 Completed [facility]it y of 00:00:00 [facility] Varicella 2004-12-07 Completed [facility] (varivax)(chicken 00:00:00 [place] [facility] pox) [facility] DTAP 2004-12-07 Completed [facility] of 00:00:00 [facility] MMR 2004-12-07 Completed [facility] 00:00:00 [facility] Pneumococcal 13 2004-12-07 Completed Universit y of Conjugate, PCV13 00:00:00 [place] [facility] (Prevnar 13) Branch Polio (IPV/OPV) 2004-12-07 Completed [facility]it y of 00:00:00 [facility] Varicella 2004-12-07 Completed [facility] (varivax)(chicken 00:00:00 [place] [facility] pox) [facility] DTAP 2004-12-07 Completed [facility] of 00:00:00 [facility] MMR 2004-12-07 Completed [facility] of 00:00:00 [facility] Pneumococcal 13 2004-12-07 Completed Universit y of Conjugate, PCV13 00:00:00 [facility] dical (Prevnar 13) Branch Polio (IPV/OPV) 2004-12-07 Completed [facility]it y of 00:00:00 [facility] Varicella 2004-12-07 Completed [facility] (varivax)(chicken 00:00:00 [place] [facility] pox) [facility] DTAP 2004-12-07 Completed [facility] of 00:00:00 [facility] MMR 2004-12-07 Completed [facility] of 00:00:00 [facility] Pneumococcal 13 2004-12-07 Completed Universit y of Conjugate, PCV13 00:00:00 [facility] dical (Prevnar 13) Branch Polio (IPV/OPV) 2004-12-07 Completed [facility]it y of 00:00:00 [facility] Varicella 2004-12-07 Completed [facility] of (varivax)(chicken 00:00:00 [place] [facility] pox) [facility] DTAP 2004-12-07 Completed [facility] of 00:00:00 [facility] MMR 2004-12-07 Completed [facility] of 00:00:00 [facility] Pneumococcal 13 2004-12-07 Completed Universit y of Conjugate, PCV13 00:00:00 [facility] dical (Prevnar 13) Branch Polio (IPV/OPV) 2004-12-07 Completed [facility]it y of 00:00:00 [facility] Varicella 2004-12-07 Completed [facility] (varivax)(chicken 00:00:00 [place] [facility] pox) Branch DTAP 2004-12-07 Completed [facility] 00:00:00 [facility] MMR 2004-12-07 Completed [facility] of 00:00:00 [facility] Pneumococcal 13 2004-12-07 Completed Universit y of Conjugate, PCV13 00:00:00 [facility] dical (Prevnar 13) Branch Polio (IPV/OPV) 2004-12-07 Completed Universit y of 00:00:00 [facility] Varicella 2004-12-07 Completed [facility] of (varivax)(chicken 00:00:00 [facility] edical pox) Branch DTAP 2004-12-07 Completed [facility] of 00:00:00 [facility] MMR 2004-12-07 Completed [facility] of 00:00:00 [facility] Pneumococcal 13 2004-12-07 Completed Universit y of Conjugate, PCV13 00:00:00 [facility] dical (Prevnar 13) Branch Polio (IPV/OPV) 2004-12-07 Completed Universit y of 00:00:00 [facility] Varicella 2004-12-07 Completed [facility] of (varivax)(chicken 00:00:00 [facility] edical pox) Branch DTAP 2004-12-07 Completed [facility] of 00:00:00 [facility] MMR 2004-12-07 Completed [facility] of 00:00:00 [facility] Pneumococcal 13 2004-12-07 Completed Universit y of Conjugate, PCV13 00:00:00 [facility] dical (Prevnar 13) Branch Polio (IPV/OPV) 2004-12-07 Completed [facility]it y of 00:00:00 [facility] Varicella 2004-12-07 Completed [facility] (varivax)(chicken 00:00:00 [place] [facility] pox) [facility] DTAP 2004-12-07 Completed [facility] of 00:00:00 [facility] MMR 2004-12-07 Completed [facility] 00:00:00 [facility] Pneumococcal 13 2004-12-07 Completed Universit y of Conjugate, PCV13 00:00:00 [facility] dical (Prevnar 13) Branch Polio (IPV/OPV) 2004-12-07 Completed [facility]it y of 00:00:00 [facility] Varicella 2004-12-07 Completed [facility] (varivax)(chicken 00:00:00 [place] [facility] pox) Branch DTAP 2004-12-07 Completed [facility] of 00:00:00 [facility] MMR 2004-12-07 Completed [facility] of 00:00:00 [facility] Pneumococcal 13 2004-12-07 Completed Universit y of Conjugate, PCV13 00:00:00 [facility] dical (Prevnar 13) Branch Polio (IPV/OPV) 2004-12-07 Completed Universit y of 00:00:00 [facility] Varicella 2004-12-07 Completed [facility] (varivax)(chicken 00:00:00 [place] [facility] pox) Branch DTAP 2004-12-07 Completed [facility] of 00:00:00 [facility] MMR 2004-12-07 Completed [facility] of 00:00:00 [facility] Pneumococcal 13 2004-12-07 Completed Universit y of Conjugate, PCV13 00:00:00 [facility] dical (Prevnar 13) Branch Polio (IPV/OPV) 2004-12-07 Completed Universit y of 00:00:00 [facility] Varicella 2004-12-07 Completed [facility] (varivax)(chicken 00:00:00 [place] [facility] pox) Branch DTAP 2004-12-07 Completed [facility] of 00:00:00 [facility] MMR 2004-12-07 Completed [facility] of 00:00:00 [facility] Pneumococcal 13 2004-12-07 Completed Universit y of Conjugate, PCV13 00:00:00 [facility] dical (Prevnar 13) Branch Polio (IPV/OPV) 2004-12-07 Completed [facility]it y of 00:00:00 [facility] Varicella 2004-12-07 Completed [facility] (varivax)(chicken 00:00:00 [place] [facility] pox) Branch DTAP 2004-12-07 Completed [facility] of 00:00:00 [facility] MMR 2004-12-07 Completed [facility] of 00:00:00 [facility] Pneumococcal 13 2004-12-07 Completed Universit y of Conjugate, PCV13 00:00:00 [facility] dical (Prevnar 13) Branch Polio (IPV/OPV) 2004-12-07 Completed [facility]it y of 00:00:00 [facility] Varicella 2004-12-07 Completed [facility] (varivax)(chicken 00:00:00 [place] [facility] pox) Branch DTAP 2004-12-07 Completed [facility] 00:00:00 [facility] MMR 2004-12-07 Completed [facility] of 00:00:00 [facility] Pneumococcal 13 2004-12-07 Completed Universit y of Conjugate, PCV13 00:00:00 [facility] dical (Prevnar 13) Branch Polio (IPV/OPV) 2004-12-07 Completed [facility]it y of 00:00:00 [facility] Varicella 2004-12-07 Completed [facility] (varivax)(chicken 00:00:00 [place] [facility] pox) Branch DTAP 2004-12-07 Completed [facility] 00:00:00 [facility] MMR 2004-12-07 Completed [facility] of 00:00:00 [facility] Pneumococcal 13 2004-12-07 Completed Universit y of Conjugate, PCV13 00:00:00 [facility] dical (Prevnar 13) Branch Polio (IPV/OPV) 2004-12-07 Completed [facility] y of 00:00:00 [facility] Varicella 2004-12-07 Completed [facility] (varivax)(chicken 00:00:00 [place] [facility] pox) [facility] DTAP 2001-03-04 Completed [facility] of 00:00:00 [facility] HIB 3 Dose Schedule 2001-03-04 Completed Unive rsity of 00:00:00 [facility] Hep B, Adol or Pedi 2001-03-04 Completed Unive rsity of Dosage 00:00:00 [facility] Polio (IPV/OPV) 2001-03-04 Completed Universit y of 00:00:00 [facility] DTAP 2001-03-04 Completed [facility] of 00:00:00 [facility] HIB 3 Dose Schedule 2001-03-04 Completed Unive rsity of 00:00:00 [facility] Hep B, Adol or Pedi 2001-03-04 Completed Unive rsity of Dosage 00:00:00 [facility] Polio (IPV/OPV) 2001-03-04 Completed Universit y of 00:00:00 [facility] DTAP 2001-03-04 Completed [facility] of 00:00:00 [facility] HIB 3 Dose Schedule 2001-03-04 Completed Unive rsity of 00:00:00 [facility] Hep B, Adol or Pedi 2001-03-04 Completed Unive rsity of Dosage 00:00:00 [facility] Polio (IPV/OPV) 2001-03-04 Completed Universit y of 00:00:00 [facility] DTAP 2001-03-04 Completed [facility] 00:00:00 [place] [facility] HIB 3 Dose Schedule 2001-03-04 Completed Unive rsity of 00:00:00 [place] [facility] Hep B, Adol or Pedi 2001-03-04 Completed Unive rsity of Dosage 00:00:00 [facility] Polio (IPV/OPV) 2001-03-04 Completed Universit y of 00:00:00 [facility] DTAP 2001-03-04 Completed [facility] of 00:00:00 [facility] HIB 3 Dose Schedule 2001-03-04 Completed Unive rsity of 00:00:00 [facility] Hep B, Adol or Pedi 2001-03-04 Completed Unive rsity of Dosage 00:00:00 [facility] Polio (IPV/OPV) 2001-03-04 Completed Universit y of 00:00:00 [facility] DTAP 2001-03-04 Completed [facility] 00:00:00 [facility] HIB 3 Dose Schedule 2001-03-04 Completed Unive rsity of 00:00:00 [facility] Hep B, Adol or Pedi 2001-03-04 Completed Unive rsity of Dosage 00:00:00 [facility] Polio (IPV/OPV) 2001-03-04 Completed Universit y of 00:00:00 [facility] DTAP 2001-03-04 Completed [facility] 00:00:00 [facility] HIB 3 Dose Schedule 2001-03-04 Completed Unive rsity of 00:00:00 [facility] Hep B, Adol or Pedi 2001-03-04 Completed Unive rsity of Dosage 00:00:00 [facility] Polio (IPV/OPV) 2001-03-04 Completed [facility]it y of 00:00:00 [facility] DTAP 2001-03-04 Completed [facility] 00:00:00 [facility] HIB 3 Dose Schedule 2001-03-04 Completed Unive rsity of 00:00:00 [facility] Hep B, Adol or Pedi 2001-03-04 Completed Unive rsity of Dosage 00:00:00 [facility] Polio (IPV/OPV) 2001-03-04 Completed [facility]it y of 00:00:00 [place] [facility] DTAP 2001-03-04 Completed [facility] 00:00:00 [facility] HIB 3 Dose Schedule 2001-03-04 Completed Unive rsity of 00:00:00 [facility] Hep B, Adol or Pedi 2001-03-04 Completed Unive rsity of Dosage 00:00:00 [facility] Polio (IPV/OPV) 2001-03-04 Completed [facility] y of 00:00:00 [facility] DTAP 2001-03-04 Completed [facility] 00:00:00 [facility] HIB 3 Dose Schedule 2001-03-04 Completed Unive rsity of 00:00:00 [facility] Hep B, Adol or Pedi 2001-03-04 Completed Unive rsity of Dosage 00:00:00 [facility] Polio (IPV/OPV) 2001-03-04 Completed [facility] of 00:00:00 [facility] DTAP 2001-03-04 Completed [facility] 00:00:00 [facility] HIB 3 Dose Schedule 2001-03-04 Completed Unive rsity of 00:00:00 [facility] Hep B, Adol or Pedi 2001-03-04 Completed Unive rsity of Dosage 00:00:00 [facility] Polio (IPV/OPV) 2001-03-04 Completed [facility] y of 00:00:00 [facility] DTAP 2001-03-04 Completed [facility] 00:00:00 [facility] HIB 3 Dose Schedule 2001-03-04 Completed Unive rsity of 00:00:00 [facility] Hep B, Adol or Pedi 2001-03-04 Completed Unive rsity of Dosage 00:00:00 [facility] Polio (IPV/OPV) 2001-03-04 Completed [facility] of 00:00:00 [facility] DTAP 2001-03-04 Completed [facility] 00:00:00 [facility] HIB 3 Dose Schedule 2001-03-04 Completed Unive rsity of 00:00:00 [facility] Hep B, Adol or Pedi 2001-03-04 Completed Unive rsity of Dosage 00:00:00 [facility] Polio (IPV/OPV) 2001-03-04 Completed [facility] 00:00:00 [facility] DTAP 2001-03-04 Completed [facility] 00:00:00 [facility] HIB 3 Dose Schedule 2001-03-04 Completed Unive rsity of 00:00:00 [facility] Hep B, Adol or Pedi 2001-03-04 Completed Unive rsity of Dosage 00:00:00 [facility] Polio (IPV/OPV) 2001-03-04 Completed [facility] of 00:00:00 [facility] DTAP 2001-03-04 Completed [facility] 00:00:00 [facility] HIB 3 Dose Schedule 2001-03-04 Completed Unive rsity of 00:00:00 [facility] Hep B, Adol or Pedi 2001-03-04 Completed Unive rsity of Dosage 00:00:00 [facility] Polio (IPV/OPV) 2001-03-04 Completed [facility] 00:00:00 [facility] DTAP 2001-03-04 Completed [facility] 00:00:00 [facility] HIB 3 Dose Schedule 2001-03-04 Completed Unive rsity of 00:00:00 [facility] Hep B, Adol or Pedi 2001-03-04 Completed Unive rsity of Dosage 00:00:00 [facility] Polio (IPV/OPV) 2001-03-04 Completed [facility] 00:00:00 [facility] DTAP 2001-03-04 Completed [facility] 00:00:00 [facility] HIB 3 Dose Schedule 2001-03-04 Completed Unive rsity of 00:00:00 [facility] Hep B, Adol or Pedi 2001-03-04 Completed Unive rsity of Dosage 00:00:00 [facility] Polio (IPV/OPV) 2001-03-04 Completed [facility] 00[facility]00:00 [facility] DTAP 2001-03-04 Completed [facility] 00:00:00 [facility] HIB 3 Dose Schedule 2001-03-04 Completed [facility] 00[facility]00:00 [facility] Hep B, Adol or Pedi 2001-03-04 Completed [facility] Dosage 00:00:00 [facility] Polio (IPV/OPV) 2001-03-04 Completed [facility] 00:00:00 [facility] DTAP 2001-03-04 Completed [facility] 00:00:00 [facility] HIB 3 Dose Schedule 2001-03-04 Completed [facility] 00:00:00 [facility] Hep B, Adol or Pedi 2001-03-04 Completed [facility] Dosage 00:00:00 [facility] Polio (IPV/OPV) 2001-03-04 Completed [facility] 00:00:00 [facility] DTAP 2001-03-04 Completed [facility] 00:00:00 [facility] HIB 3 Dose Schedule 2001-03-04 Completed [facility] 00:00:00 [facility] Hep B, Adol or Pedi 2001-03-04 Completed [facility] Dosage 00:00:00 [facility] Polio (IPV/OPV) 2001-03-04 Completed [facility] 00:00:00 [facility] DTAP 2001-03-04 Completed [facility] 00:00:00 [facility] HIB 3 Dose Schedule 2001-03-04 Completed [facility] 00:00:00 [facility] Hep B, Adol or Pedi 2001-03-04 Completed [facility] Dosage 00:00:00 [facility] Polio (IPV/OPV) 2001-03-04 Completed [facility] 00:00:00 [facility] DTAP 2001-03-04 Completed [facility] 00:00:00 [facility] HIB 3 Dose Schedule 2001-03-04 Completed [facility] 00:00:00 [facility] Hep B, Adol or Pedi 2001-03-04 Completed [facility] Dosage 00:00:00 [facility] Polio (IPV/OPV) 2001-03-04 Completed [facility] 00:00:00 [facility] DTAP 2001-03-04 Completed [facility] 00:00:00 [facility] HIB 3 Dose Schedule 2001-03-04 Completed [facility] 00:00:00 [facility] Hep B, Adol or Pedi 2001-03-04 Completed [facility] Dosage 00:00:00 [facility] Polio (IPV/OPV) 2001-03-04 Completed [facility] 00:00:00 [facility] DTAP 2001-03-04 Completed [facility] 00:00:00 [facility] HIB 3 Dose Schedule 2001-03-04 Completed [facility] 00:00:00 [facility] Hep B, Adol or Pedi 2001-03-04 Completed [facility] Dosage 00:00:00 [facility] Polio (IPV/OPV) 2001-03-04 Completed [facility] 00:00:00 [facility] DTAP 2001-03-04 Completed [facility] 00:00:00 [facility] HIB 3 Dose Schedule 2001-03-04 Completed [facility] 00:00:00 [facility] Hep B, Adol or Pedi 2001-03-04 Completed [facility] Dosage 00:00:00 [facility] Polio (IPV/OPV) 2001-03-04 Completed [facility] 00:00:00 [facility] DTAP 2001-03-04 Completed [facility] 00:00:00 [facility] HIB 3 Dose Schedule 2001-03-04 Completed [facility] 00:00:00 [facility] Hep B, Adol or Pedi 2001-03-04 Completed [facility] Dosage 00:00:00 [facility] Polio (IPV/OPV) 2001-03-04 Completed [facility] 00:00:00 [facility] DTAP 2000-03-05 Completed [facility] 00:00:00 [facility] HIB 3 Dose Schedule 2000-03-05 Completed [facility] 00:00:00 [facility] Hep B, Adol or Pedi 2000-03-05 Completed [facility] Dosage 00:00:00 [facility] Polio (IPV/OPV) 2000-03-05 Completed [facility] 00:00:00 [facility] DTAP 2000-03-05 Completed [facility] 00:00:00 [facility] HIB 3 Dose Schedule 2000-03-05 Completed [facility] 00:00:00 [facility] Hep B, Adol or Pedi 2000-03-05 Completed [facility] Dosage 00:00:00 [facility] Polio (IPV/OPV) 2000-03-05 Completed [facility] 00:00:00 [facility] DTAP 2000-03-05 Completed [facility] 00:00:00 [facility] HIB 3 Dose Schedule 2000-03-05 Completed [facility] 00:00:00 [facility] Hep B, Adol or Pedi 2000-03-05 Completed [facility] Dosage 00:00:00 [facility] Polio (IPV/OPV) 2000-03-05 Completed [facility] 00:00:00 [facility] DTAP 2000-03-05 Completed [facility] 00:00:00 [facility] HIB 3 Dose Schedule 2000-03-05 Completed [facility] 00:00:00 [facility] Hep B, Adol or Pedi 2000-03-05 Completed [facility] Dosage 00:00:00 [facility] Polio (IPV/OPV) 2000-03-05 Completed [facility] 00:00:00 [facility] DTAP 2000-03-05 Completed [facility] 00:00:00 [facility] HIB 3 Dose Schedule 2000-03-05 Completed [facility] 00:00:00 [facility] Hep B, Adol or Pedi 2000-03-05 Completed [facility] Dosage 00:00:00 [facility] Polio (IPV/OPV) 2000-03-05 Completed [facility] 00:00:00 [facility] DTAP 2000-03-05 Completed [facility] 00:00:00 [facility] HIB 3 Dose Schedule 2000-03-05 Completed [facility] 00:00:00 [facility] Hep B, Adol or Pedi 2000-03-05 Completed [facility] Dosage 00:00:00 [facility] Polio (IPV/OPV) 2000-03-05 Completed [facility] 00:00:00 [facility] DTAP 2000-03-05 Completed [facility] 00:00:00 [facility] HIB 3 Dose Schedule 2000-03-05 Completed [facility] 00:00:00 [facility] Hep B, Adol or Pedi 2000-03-05 Completed [facility] Dosage 00:00:00 [facility] Polio (IPV/OPV) 2000-03-05 Completed [facility] 00:00:00 [facility] DTAP 2000-03-05 Completed [facility] 00:00:00 [facility] HIB 3 Dose Schedule 2000-03-05 Completed [facility] 00:00:00 [facility] Hep B, Adol or Pedi 2000-03-05 Completed [facility] Dosage 00:00:00 [facility] Polio (IPV/OPV) 2000-03-05 Completed [facility] 00:00:00 [facility] DTAP 2000-03-05 Completed [facility] 00:00:00 [facility] HIB 3 Dose Schedule 2000-03-05 Completed [facility] 00:00:00 [facility] Hep B, Adol or Pedi 2000-03-05 Completed [facility] Dosage 00:00:00 [facility] Polio (IPV/OPV) 2000-03-05 Completed [facility] 00:00:00 [facility] DTAP 2000-03-05 Completed [facility] 00:00:00 [facility] HIB 3 Dose Schedule 2000-03-05 Completed [facility] 00:00:00 [facility] Hep B, Adol or Pedi 2000-03-05 Completed [facility] Dosage 00:00:00 [facility] Polio (IPV/OPV) 2000-03-05 Completed [facility] 00:00:00 [facility] DTAP 2000-03-05 Completed [facility] 00:00:00 [facility] HIB 3 Dose Schedule 2000-03-05 Completed [facility] 00:00:00 [facility] Hep B, Adol or Pedi 2000-03-05 Completed [facility] Dosage 00:00:00 [facility] Polio (IPV/OPV) 2000-03-05 Completed [facility] 00:00:00 [facility] DTAP 2000-03-05 Completed [facility] 00:00:00 [facility] HIB 3 Dose Schedule 2000-03-05 Completed [facility] 00:00:00 [facility] Hep B, Adol or Pedi 2000-03-05 Completed [facility] Dosage 00:00:00 [facility] Polio (IPV/OPV) 2000-03-05 Completed [facility] 00:00:00 [facility] DTAP 2000-03-05 Completed [facility] 00:00:00 [facility] HIB 3 Dose Schedule 2000-03-05 Completed [facility] 00:00:00 [facility] Hep B, Adol or Pedi 2000-03-05 Completed [facility] Dosage 00:00:00 [facility] Polio (IPV/OPV) 2000-03-05 Completed [facility] 00:00:00 [facility] DTAP 2000-03-05 Completed [facility] 00:00:00 [facility] HIB 3 Dose Schedule 2000-03-05 Completed [facility] 00:00:00 [facility] Hep B, Adol or Pedi 2000-03-05 Completed [facility] Dosage 00:00:00 [facility] Polio (IPV/OPV) 2000-03-05 Completed [facility] 00:00:00 [facility] DTAP 2000-03-05 Completed [facility] 00:00:00 [facility] HIB 3 Dose Schedule 2000-03-05 Completed [facility] 00:00:00 [facility] Hep B, Adol or Pedi 2000-03-05 Completed [facility] Dosage 00:00:00 [facility] Polio (IPV/OPV) 2000-03-05 Completed [facility] 00:00:00 [facility] DTAP 2000-03-05 Completed [facility] 00:00:00 [facility] HIB 3 Dose Schedule 2000-03-05 Completed [facility] 00:00:00 [facility] Hep B, Adol or Pedi 2000-03-05 Completed [facility] Dosage 00:00:00 [facility] Polio (IPV/OPV) 2000-03-05 Completed [facility] 00:00:00 [facility] DTAP 2000-03-05 Completed [facility] 00:00:00 [facility] HIB 3 Dose Schedule 2000-03-05 Completed [facility] 00:00:00 [facility] Hep B, Adol or Pedi 2000-03-05 Completed [facility] Dosage 00:00:00 [facility] Polio (IPV/OPV) 2000-03-05 Completed [facility] 00:00:00 [facility] DTAP 2000-03-05 Completed [facility] 00:00:00 [facility] HIB 3 Dose Schedule 2000-03-05 Completed [facility] 00:00:00 [facility] Hep B, Adol or Pedi 2000-03-05 Completed [facility] Dosage 00:00:00 [facility] Polio (IPV/OPV) 2000-03-05 Completed [facility] 00:00:00 [facility] DTAP 2000-03-05 Completed [facility] 00:00:00 [facility] HIB 3 Dose Schedule 2000-03-05 Completed [facility] 00:00:00 [facility] Hep B, Adol or Pedi 2000-03-05 Completed [facility] Dosage 00:00:00 [facility] Polio (IPV/OPV) 2000-03-05 Completed [facility] 00:00:00 [facility] DTAP 2000-03-05 Completed [facility] 00:00:00 [facility] HIB 3 Dose Schedule 2000-03-05 Completed [facility] 00:00:00 [facility] Hep B, Adol or Pedi 2000-03-05 Completed [facility] Dosage 00:00:00 [facility] Polio (IPV/OPV) 2000-03-05 Completed [facility] 00:00:00 [facility] DTAP 2000-03-05 Completed [facility] 00:00:00 [facility] HIB 3 Dose Schedule 2000-03-05 Completed [facility] 00:00:00 [facility] Hep B, Adol or Pedi 2000-03-05 Completed [facility] Dosage 00:00:00 [facility] Polio (IPV/OPV) 2000-03-05 Completed [facility] 00:00:00 [facility] DTAP 2000-03-05 Completed [facility] 00:00:00 [facility] HIB 3 Dose Schedule 2000-03-05 Completed [facility] 00:00:00 [facility] Hep B, Adol or Pedi 2000-03-05 Completed [facility] Dosage 00:00:00 [facility] Polio (IPV/OPV) 2000-03-05 Completed [facility] 00:00:00 [facility] DTAP 2000-03-05 Completed [facility] 00:00:00 [facility] HIB 3 Dose Schedule 2000-03-05 Completed [facility] 00:00:00 [facility] Hep B, Adol or Pedi 2000-03-05 Completed [facility] Dosage 00:00:00 [facility] Polio (IPV/OPV) 2000-03-05 Completed [facility] 00:00:00 [facility] DTAP 2000-03-05 Completed [facility] 00:00:00 [facility] HIB 3 Dose Schedule 2000-03-05 Completed [facility] 00:00:00 [facility] Hep B, Adol or Pedi 2000-03-05 Completed [facility] Dosage 00:00:00 [facility] Polio (IPV/OPV) 2000-03-05 Completed [facility] 00:00:00 [facility] DTAP 2000-03-05 Completed [facility] 00:00:00 [facility] HIB 3 Dose Schedule 2000-03-05 Completed [facility] 00:00:00 [facility] Hep B, Adol or Pedi 2000-03-05 Completed [facility] Dosage 00:00:00 [facility] Polio (IPV/OPV) 2000-03-05 Completed [facility] 00:00:00 [facility] DTAP 2000-03-05 Completed [facility] 00:00:00 [facility] HIB 3 Dose Schedule 2000-03-05 Completed [facility] 00:00:00 [facility] Hep B, Adol or Pedi 2000-03-05 Completed [facility] Dosage 00:00:00 [facility] Polio (IPV/OPV) 2000-03-05 Completed [facility] 00:00:00 [facility] Hep B, Adol or Pedi 1999 Completed [facility] Dosage 00:00:00 [facility] Polio (IPV/OPV) 1999 Completed [facility] 00:00:00 [facility] DTAP 1999 Completed [facility] 00:00:00 [facility] HIB 3 Dose Schedule 1999 Completed [facility] 00:00:00 [facility] Hep B, Adol or Pedi 1999 Completed [facility] Dosage 00:00:00 [facility] Polio (IPV/OPV) 1999 Completed [facility] 00:00:00 [facility] DTAP 1999 Completed [facility] 00:00:00 [facility] HIB 3 Dose Schedule 1999 Completed [facility] 00:00:00 [facility] Hep B, Adol or Pedi 1999 Completed [facility] Dosage 00:00:00 [facility] Polio (IPV/OPV) 1999 Completed [facility] 00:00:00 [facility] DTAP 1999 Completed [facility] 00:00:00 [facility] HIB 3 Dose Schedule 1999 Completed [facility] 00:00:00 [facility] Hep B, Adol or Pedi 1999 Completed [facility] Dosage 00:00:00 [facility] Polio (IPV/OPV) 1999 Completed [facility] 00:00:00 [facility] DTAP 1999 Completed [facility] 00:00:00 [facility] HIB 3 Dose Schedule 1999 Completed [facility] 00:00:00 [facility] Hep B, Adol or Pedi 1999 Completed [facility] Dosage 00:00:00 [facility] Polio (IPV/OPV) 1999 Completed [facility] 00:00:00 [facility] DTAP 1999 Completed [facility] 00:00:00 [facility] HIB 3 Dose Schedule 1999 Completed [facility] 00:00:00 [facility] Hep B, Adol or Pedi 1999 Completed [facility] Dosage 00:00:00 [facility] Polio (IPV/OPV) 1999 Completed [facility] 00:00:00 [facility] DTAP 1999 Completed [facility] 00:00:00 [facility] HIB 3 Dose Schedule 1999 Completed [facility] 00:00:00 [facility] Hep B, Adol or Pedi 1999 Completed [facility] Dosage 00:00:00 [facility] Polio (IPV/OPV) 1999 Completed [facility] 00:00:00 [facility] DTAP 1999 Completed [facility] 00:00:00 [facility] HIB 3 Dose Schedule 1999 Completed [facility] 00:00:00 [facility] Hep B, Adol or Pedi 1999 Completed [facility] Dosage 00:00:00 [facility] Polio (IPV/OPV) 1999 Completed [facility] 00:00:00 [facility] DTAP 1999 Completed [facility] 00:00:00 [facility] HIB 3 Dose Schedule 1999 Completed [facility] 00:00:00 [facility] Hep B, Adol or Pedi 1999 Completed [facility] Dosage 00:00:00 [facility] Polio (IPV/OPV) 1999 Completed [facility] 00:00:00 [facility] DTAP 1999 Completed [facility] 00:00:00 [facility] HIB 3 Dose Schedule 1999 Completed [facility] 00:00:00 [facility] Hep B, Adol or Pedi 1999 Completed [facility] Dosage 00:00:00 [facility] Polio (IPV/OPV) 1999 Completed [facility] 00:00:00 [facility] DTAP 1999 Completed [facility] 00:00:00 [facility] HIB 3 Dose Schedule 1999 Completed [facility] 00:00:00 [facility] Hep B, Adol or Pedi 1999 Completed [facility] Dosage 00:00:00 [facility] Polio (IPV/OPV) 1999 Completed [facility] 00:00:00 [facility] DTAP 1999 Completed [facility] 00:00:00 [facility] HIB 3 Dose Schedule 1999 Completed [facility] 00:00:00 [facility] Hep B, Adol or Pedi 1999 Completed [facility] Dosage 00:00:00 [facility] Polio (IPV/OPV) 1999 Completed [facility] 00:00:00 [facility] DTAP 1999 Completed [facility] 00:00:00 [facility] HIB 3 Dose Schedule 1999 Completed [facility] 00:00:00 [facility] Hep B, Adol or Pedi 1999 Completed [facility] Dosage 00:00:00 [facility] Polio (IPV/OPV) 1999 Completed [facility] 00:00:00 [facility] DTAP 1999 Completed [facility] 00:00:00 [facility] HIB 3 Dose Schedule 1999 Completed [facility] 00:00:00 [facility] Hep B, Adol or Pedi 1999 Completed [facility] Dosage 00:00:00 [facility] Polio (IPV/OPV) 1999 Completed [facility] 00:00:00 [facility] DTAP 1999 Completed [facility] 00:00:00 [facility] HIB 3 Dose Schedule 1999 Completed [facility] 00:00:00 [facility] Hep B, Adol or Pedi 1999 Completed [facility] Dosage 00:00:00 [facility] Polio (IPV/OPV) 1999 Completed [facility] 00:00:00 [facility] DTAP 1999 Completed [facility] 00:00:00 [facility] HIB 3 Dose Schedule 1999 Completed [facility] 00:00:00 [facility] Hep B, Adol or Pedi 1999 Completed [facility] Dosage 00:00:00 [facility] Polio (IPV/OPV) 1999 Completed [facility] 00:00:00 [facility] DTAP 1999 Completed [facility] 00:00:00 [facility] HIB 3 Dose Schedule 1999 Completed [facility] 00:00:00 [facility] Hep B, Adol or Pedi 1999 Completed [facility] Dosage 00:00:00 [facility] Polio (IPV/OPV) 1999 Completed [facility] 00:00:00 [facility] DTAP 1999 Completed [facility] 00:00:00 [facility] HIB 3 Dose Schedule 1999 Completed [facility] 00:00:00 [facility] Hep B, Adol or Pedi 1999 Completed [facility] Dosage 00:00:00 [facility] Polio (IPV/OPV) 1999 Completed [facility] 00:00:00 [facility] DTAP 1999 Completed [facility] 00:00:00 [facility] HIB 3 Dose Schedule 1999 Completed [facility] 00:00:00 [facility] Hep B, Adol or Pedi 1999 Completed [facility] Dosage 00:00:00 [facility] Polio (IPV/OPV) 1999 Completed [facility] 00:00:00 [facility] DTAP 1999 Completed [facility] 00:00:00 [facility] HIB 3 Dose Schedule 1999 Completed [facility] 00:00:00 [facility] Hep B, Adol or Pedi 1999 Completed [facility] Dosage 00:00:00 [facility] Polio (IPV/OPV) 1999 Completed [facility] 00:00:00 [facility] DTAP 1999 Completed [facility] 00:00:00 [facility] HIB 3 Dose Schedule 1999 Completed [facility] 00:00:00 [facility] Hep B, Adol or Pedi 1999 Completed [facility] Dosage 00:00:00 [facility] Polio (IPV/OPV) 1999 Completed [facility] 00:00:00 [facility] DTAP 1999 Completed [facility] 00:00:00 [facility] HIB 3 Dose Schedule 1999 Completed [facility] 00:00:00 [facility] Hep B, Adol or Pedi 1999 Completed [facility] Dosage 00:00:00 [facility] Polio (IPV/OPV) 1999 Completed [facility] 00:00:00 [facility] DTAP 1999 Completed [facility] 00:00:00 [facility] HIB 3 Dose Schedule 1999 Completed [facility] 00:00:00 [facility] Hep B, Adol or Pedi 1999 Completed [facility] Dosage 00:00:00 [facility] Polio (IPV/OPV) 1999 Completed [facility] 00:00:00 [facility] DTAP 1999 Completed [facility] 00:00:00 [facility] HIB 3 Dose Schedule 1999 Completed [facility] 00:00:00 [facility] Hep B, Adol or Pedi 1999 Completed [facility] Dosage 00:00:00 [facility] Polio (IPV/OPV) 1999 Completed [facility] 00:00:00 [facility] DTAP 1999 Completed [facility] 00:00:00 [facility] HIB 3 Dose Schedule 1999 Completed [facility] 00:00:00 [facility] Hep B, Adol or Pedi 1999 Completed [facility] Dosage 00:00:00 [facility] Polio (IPV/OPV) 1999 Completed [facility] 00:00:00 [facility] DTAP 1999 Completed [facility] 00:00:00 [facility] HIB 3 Dose Schedule 1999 Completed [facility] 00:00:00 [facility] Hep B, Adol or Pedi 1999 Completed [facility] Dosage 00:00:00 [facility] Polio (IPV/OPV) 1999 Completed [facility] 00:00:00 [facility] DTAP 1999 Completed [facility] 00:00:00 [facility] HIB 3 Dose Schedule 1999 Completed [facility] 00:00:00 [facility] Vital Signs Vital Name Observation Time Observation Value Comments Source Oxygen saturation in 2022-11-27 03:20:00 100 /min [facility] Arterial blood by [facility] Pulse oximetry Branch Systolic blood 2022-11-27 03:20:00 139 mm[Hg] [facility] pressure [facility] Diastolic blood 2022-11-27 03:20:00 92 mm[Hg] [facility] pressure [facility] Heart rate 2022-11-27 03:20:00 80 /min [facility] Body temperature 2022-11-27 03:20:00 36.28 Radha [facility] Respiratory rate 2022-11-27 03:20:00 15 /min [facility] Body height 2022-11-27 03:20:00 162.6 cm [facility] Body weight 2022-11-27 03:20:00 96.163 kg [facility] BMI 2022-11-27 03:20:00 36.39 kg/m2 [facility] Heart rate 2022-07-02 16:04:00 87 /min [facility] Body temperature 2022-07-02 16:04:00 36.89 Radha [facility] Respiratory rate 2022-07-02 16:04:00 22 /min [facility] Body height 2022-07-02 16:04:00 165.1 cm [facility] Body weight 2022-07-02 16:04:00 101.833 kg [facility] BMI 2022-07-02 16:04:00 37.36 kg/m2 [facility] Oxygen saturation in 2022-07-02 16:04:00 99 /min [facility] Systolic blood 2021-09-13 07:00:00 121 mm[Hg] [facility] pressure [facility] Diastolic blood 2021-09-13 07:00:00 84 mm[Hg] [facility] pressure [facility] Heart rate 2021-09-13 07:00:00 98 /min [facility] Respiratory rate 2021-09-13 07:00:00 20 /min [facility] Oxygen saturation in 2021-09-13 07:00:00 98 /min [facility] Arterial blood by [facility] Pulse oximetry Branch Body temperature 2021-09-13 05:34:00 37.61 Radha [facility] Body height 2021-09-13 05:34:00 162.6 cm [facility] Body weight 2021-09-13 05:34:00 111.131 kg [facility] BMI 2021-09-13 05:34:00 42.05 kg/m2 [facility] Systolic blood 2020-12-31 20:48:00 127 mm[Hg] [facility] Diastolic blood 2020-12-31 20:48:00 96 mm[Hg] [facility] Heart rate 2020-12-31 20:48:00 83 /min [facility] Body temperature 2020-12-31 20:48:00 36.83 Radha [facility] Respiratory rate 2020-12-31 20:48:00 18 /min [facility] Body weight 2020-12-31 20:48:00 110.678 kg [facility] BMI 2020-12-31 20:48:00 41.88 kg/m2 [facility] Oxygen saturation in 2020-12-31 20:48:00 100 /min [facility] [place] [facility] Pulse oximetry Branch Systolic blood 2020-11-07 14:46:00 126 mm[Hg] [facility] Diastolic blood 2020-11-07 14:46:00 76 mm[Hg] [facility] Heart rate 2020-11-07 14:46:00 92 /min [facility] Body temperature 2020-11-07 14:46:00 37 Radha [facility] Respiratory rate 2020-11-07 14:46:00 24 /min [facility] Body height 2020-11-07 14:46:00 162.6 cm [facility] Body weight 2020-11-07 14:46:00 113.581 kg [facility] BMI 2020-11-07 14:46:00 42.98 kg/m2 [facility] Systolic blood 2020-10-17 18:10:00 119 mm[Hg] [facility] Diastolic blood 2020-10-17 18:10:00 72 mm[Hg] [facility] Heart rate 2020-10-17 18:10:00 99 /min [facility] Body temperature 2020-10-17 18:10:00 36.89 Radha [facility] Respiratory rate 2020-10-17 18:10:00 16 /min [facility] Body height 2020-10-17 18:10:00 162.6 cm [facility] [place] [facility] Body weight 2020-10-17 18:10:00 117.113 kg [facility] BMI 2020-10-17 18:10:00 44.32 kg/m2 [facility] Systolic blood 2020-08-09 06:00:00 136 mm[Hg] [facility] Diastolic blood 2020-08-09 06:00:00 75 mm[Hg] [facility] Heart rate 2020-08-09 06:00:00 93 /min [facility] Respiratory rate 2020-08-09 06:00:00 18 /min [facility] Oxygen saturation in 2020-08-09 06:00:00 92 /min [facility] Arterial blood by [facility] Pulse oximetry Branch Body temperature 2020-08-09 05:00:00 37.44 Radha [facility] Body height 2020-08-09 05:00:00 162.6 cm [facility] Body weight 2020-08-09 05:00:00 114.306 kg [facility] BMI 2020-08-09 05:00:00 43.26 kg/m2 [facility] Systolic blood 2020-01-08 07:00:00 137 mm[Hg] [facility] Diastolic blood 2020-01-08 07:00:00 82 mm[Hg] Unive rsity of [facility] Heart rate 2020-01-08 07:00:00 80 /min [facility] Body temperature 2020-01-08 07:00:00 36.89 Radha [facility] Respiratory rate 2020-01-08 07:00:00 11 /min [facility] Oxygen saturation in 2020-01-08 07:00:00 95 /min [facility] Arterial blood by [facility] Pulse oximetry Branch Body weight 2020-01-08 05:39:00 108.863 kg [facility] Systolic blood 2020-01-08 07:00:00 137 mm[Hg] [facility] Diastolic blood 2020-01-08 07:00:00 82 mm[Hg] Unive rsity of [facility] Heart rate 2020-01-08 07:00:00 80 /min [facility] Body temperature 2020-01-08 07:00:00 36.89 Radha [facility] Respiratory rate 2020-01-08 07:00:00 11 /min [facility] Oxygen saturation in 2020-01-08 07:00:00 95 /min [facility] Arterial blood by [facility] Pulse oximetry Branch Body weight 2020-01-08 05:39:00 108.863 kg Universi [facility] Procedures Procedure Date / Time Performed Performing Clinician Sourc e POCT TEST 2022-11-27 05:32:[address] [facility] URINALYSIS 2022-11-27 05:31:00 Alvaro Herndon [place] [facility] LACTIC ACID WHOLE 2022-11-27 05:17:00 Alvaro Herndon [facility] BLOOD Medical Branch LIPASE 2022-11-27 05:16:00 Alvaro Herndon [facility] TEST, SERUM 2022-11-27 05:16:00 Alvaro Herndon [facility] COMP. METABOLIC PANEL 2022-11-27 05:16:00 Alvaro Herndon [facility] ([id number]) Medical [place] CBC WITH DIFF 2022-11-27 05:16:00 Alvaro Herndon [facility] ASSIGNMENT OF BENEFITS 2022-11-27 04:54:06 Doctor Unassigned, No [facility] Name Medical Branch CONSENT/REFUSAL FOR 2022-11-27 03:16:23 Doctor Unassigned, No [facility] [place] [facility] Name [facility] Branch TREATMENT XR SPINE THORACIC 2 VW 2022-07-02 18:53:16 Prakash Allan [facility] XR ELBOW >3 VW LEFT 2022-07-02 18:53:[address] [facility] CONSENT/REFUSAL FOR 2022-07-02 15:56:23 Doctor Unassigned, No [facility] [place] [facility] Name Medical Branch TREATMENT CONSENT/REFUSAL FOR 2021-09-13 05:29:08 Doctor Unassigned, No [facility] [place] [facility] AND Name Medical Branch TREATMENT NOTICE OF PRIVACY 2021-09-13 05:28:35 Doctor Unassigned, No [facility] [place] [facility] Name Medical Branch POCT TEST 2020-12-31 21:04:[address] [facility] URINALYSIS 2020-12-31 20:58:00 Alvaro Herndon [facility] CONSENT/REFUSAL FOR 2020-12-31 20:17:00 Doctor Unassigned, No [facility] [place] [facility] Name Medical Branch TREATMENT POCT TEST 2020-10-17 19:59:00 [facility]ip[facility] GARDASIL 9 (HPV 9V) 2020-10-17 19:16:48 Felipa [facility] [place] VACCINE Medical Branch CONSENT/REFUSAL FOR 2020-10-17 17:25:15 Doctor Unassigned, No [facility] [place] DI[facility] AND Name Medical Branch TREATMENT ASSIGNMENT OF BENEFITS 2020-10-17 17:24:54 Doctor Unassigned, No [facility] BASIC METABOLIC PANEL 2020-08-09 05:20:00 Morena Benton [facility] (NA, K, CL, CO2, Medical Branch GLUCOSE, BUN, CREATININE, CA) CBC WITH DIFF 2020-08-09 05:20:00 [facility]na [facility]enton [facility] POCT TEST 2020-08-09 05:05:00 Morena Benton [facility] URINALYSIS 2020-08-09 05:03:00 Morena Benton [facility] NOTICE OF PRIVACY 2020-08-09 04:47:00 Doctor Unassigned, No [facility] CONSENT/REFUSAL FOR 2020-08-09 04:46:34 Doctor Unassigned, No [facility] DIAGNOSIS AND [facility] TREATMENT XR CHEST 1 VW 2020-01-08 06:19:33 El Hussein [facility] LIPASE 2020-01-08 06:14:00 El Hussein [facility] TROPONIN I 2020-01-08 06:14:00 El Hussein [facility] HEPATIC FUNCTION PANEL 2020-01-08 06:14:00 [id number] Medical [place] (ALB,T.PRO,BILI T,BU/BC,ALT,AST,ALK PHOS) BASIC METABOLIC PANEL 2020-01-08 06:14:00 El Hussein [facility] (NA, K, CL, CO2, Medical Branch GLUCOSE, BUN, CREATININE, CA) CBC WITH DIFF 2020-01-08 06:14:00 El Hussein [facility] URINALYSIS 2020-01-08 06:14:00 El Hussein [facility] POCT TEST 2020-01-08 06:13:[address] [facility] EKG-12 LEAD 2020-01-08 05:54:25 El Hussein [facility] Encounters Start End Encounter Admission Attending Care Care Encounter Source Date/Time Date/Time Type Type Clinicians Facility Department ID 2021-04-02 Emergency [facility] [id number] Univers 12:16:56 ity of [facility] 2023-01-01 2023-01-01 [facility] [id number] Univers 00:00:00 00:00:00 (Out) [facility] SPECIALTY 350.1.13.10 ity of [facility] CARE 4.2.7.2.686 [facility] AT [phone] Mi gustavo LEARY 2 [facility] 2022-11-26 2022-11-27 Emergency [facility] E[facility] [id number] Univers 22:37:00 02:15:00 ALVARO ity [facility] 2022-11-26 2022-11-27 Emergency [facility] [id number] Univers 22:37:00 02:15:00 Alvaro MARRERO 350.1.13.10 i ty of [place] 4.2.7.2.686 [facility] [id number] [address] 2022-11-26 2022-11-26 Orders Doctor MARYSOL 1.2.840.114 [id number] Univers 00:00:00 00:00:00 Only Unassigned, MARCIO [id number] ity of [place] [facility] 4.2.7.2.686 Awnder as [id number] [facility] [address] [place] 2022-10-16 2022-10-16 Outpatient SFA [id number] Eulogio 14:28:32 14:28:32 0517 F Ronnie 2022-07-02 2022-07-02 Emergency [facility] [id number] Univers 10:07:00 14:07:00 PRAKASH ity [facility] 2022-07-02 2022-07-02 Emergency [facility] [id number] Univers 10:07:00 14:07:00 Prakash MARRERO 350.1.13.10 i ty of [place] 4.2.7.2.686 [facility] [id number] [address] 2022-07-02 2022-07-02 Orders Doctor MARYSOL 1.2.840.114 [id number] Univers 00:00:00 00:00:00 Only Unassigned, MARCIO 350.1.13.[address] [facility] 4.2.7.2.686 [place] as [phone] [address] 2021-09-13 2021-09-13 Emergency X [facility] ERT [id number] Univers 00:42:00 02:04:00 PRAKASH ity [facility] 2021-09-13 2021-09-13 Emergency [facility] [id number] Univers 00:42:00 02:04:00 Prakash MARRERO 350.1.13.10 i ty [facility] 4.2.7.2.686 [facility] [id number] [address] 2021-03-02 2021-03-02 [facility] 1.2.840.114 [id number] Univers 00:00:00 00:00:00 Felipa Messina [employer] 350.1.13.10 ity of [facility] 4.2.7.2.686 [place] as MATERNAL [phone] Med ical & CHILD [address] [place] [address] 2021-02-19 2021-02-19 [facility] [id number] Univers 08:15:00 08:15:00 FELIPA dueñas [facility] 2021-02-06 2021-02-06 [facility] [id number] Univers 10:30:00 10:30:00 FELIPA dueñas [facility] 2020-12-31 2020-12-31 Emergency [facility] [id number] Univers 16:05:00 18:56:00 Annabella Marrero 350.1.13.10 ity [facility] 4.2.7.2.686 [facility] [id number] [address] 2020-12-25 2020-12-25 [facility]phone [facility] 1.2.840.114 [id number] Univers 00:00:00 00:00:00 Felipa C [employer] 350.1.13.10 ity of [facility] 4.2.7.2.686 [place] MATERNAL [id number] [facility] & [address] 2020-12-24 2020-12-24 Nurse Lise Garcia 1.2.840.114 [id number] Univers 00:00:00 00:00:00 Triage MARCIO 350.1.13.10 it y of [facility] 4.2.7.2.686 [place] as [id number] [address] 2020-11-07 2020-11-07 Office [facility] [id number] Univers 09:33:35 11:41:19 Visit Felipa C [employer] 350.1.13.10 ity of [facility] 4.2.7.2.686 [place] MATERNAL [id number] [address] 2020-11-07 2020-11-07 Outpatient R FINN [facility] [id number] Univers 09:30:00 09:30:00 FELIPA ity o f [facility] 2020-11-03 2020-11-03 Telephone [facility] 1.2.840.114 [id number] Univers 00:00:00 00:00:00 Felipa C [employer] 350.1.13.10 ity of [facility] 4.2.7.2.686 [place] MATERNAL [phone] [address] 2020-11-02 2020-11-02 Telephone [facility] 1.2.840.114 [id number] Univers 00:00:00 00:00:00 Felipa C [employer] 350.1.13.10 ity of [facility] 4.2.7.2.686 [place] MATERNAL [phone] [address] 2020-11-01 2020-11-01 [facility]ill [facility] 1.2.500.560 [id number] Univers 00:00:00 00:00:00 Felipa C [employer] 350.1.13.10 ity of [facility] 4.2.7.2.686 [place] as MATERNAL [phone] [facility] & CHILD [address] [place] [address] 2020-11-01 2020-11-01 Letter ELDA Jonas 1.2.840.114 [id number] Univers 00:00:00 00:00:00 (Out) Jake Westbrook [facility] 350.1.13.10 i ty of [facility] 4.2.7.2.686 [place] [id number] [facility] [address] [place] 2020-10-27 2020-10-27 Outpatient R [facility] [id number] Univers 15:30:00 15:30:00 ity of [facility] 2020-10-19 2020-10-19 [facility] 1.2.840.114 [id number] Univers 00:00:00 00:00:00 Felipa Messina [employer] 350.1.13.10 ity of [facility] 4.2.7.2.686 [place] as MATERNAL [id number] [facility] & CHILD [address] [place] [address] 2020-10-17 2020-10-17 Office [facility] [id number] Univers 12:46:36 14:56:59 Visit Felipa Messina [employer] 350.1.13.10 ity of [facility] 4.2.7.2.686 [place] as MATERNAL [phone] [address] 2020-10-17 2020-10-17 Outpatient R E[facility]RA[facility] [id number] Univers 13:00:00 13:00:00 FELIPA diehl f [facility] 2020-10-17 2020-10-17 Orders Doctor GREGG 1.2.840.114 [id number] Univers 00:00:00 00:00:00 Only Unassigned, MARCIO 350.1.13.10 ity of [place] [facility] 4.2.7.2.686 Wander as [phone] [facility] [address] [place] 2020-08-08 2020-08-09 Emergency Serenity [facility] 1.2.840.114 [id number] Univers 22:53:00 01:02:00 Morena Marrero 350.1.13.10 ity of [place] 4.2.7.2.686 [facility] [id number] [address] 2020-08-08 2020-08-08 Emergency X SERENITY [facility] ERT [id number] [facility] 22:53:00 22:53:00 MORENA [facility] 2020-08-08 2020-08-08 Orders Doctor MARYSOL 1.2.840.114 [id number] [facility] 00:00:00 00:00:00 Only Unassigned, MARCIO 350.1.13.10 ity of [place] [facility] 4.2.7.2.686 [facility] [phone] [address] 2020-01-08 2020-01-08 Emergency El Hussein [facility] 1.2.840.114 [id number] Univers 00:31:00 02:30:00 T Priyank 350.1.13.10 i ty of [place] 4.2.7.2.686 [facility] [id number] [address] 2020-01-08 2020-01-08 Emergency El Hussein [facility] 1.2.840.114 [id number] 00:31:00 02:30:00 T Priyank 350.1.13.10 [place] 4.2.7.2.686 [place] [id number] [facility] 2020-01-08 2020-01-08 Emergency X EL HUSSEIN [facility] ERT [id number] Univers 00:31:00 00:31:00 [facility] Results Test Description Test Time Test Comments Results Result Comments Source Lactic Acid Whole Blood 2022-11-27 05:39:07 Test Item Value Reference Range Interpretation Comme nts LACTIC ACID (test code = 3651697201) 1.37 mmol/L 0.50-2.20 Lab Interpretation (test code = 06541-6) Normal [id number] 05:32:00 Test Item Value Reference Range Interpretation Comments POCT PREG (test code = 1605) Negative On board controls acceptable with Yes C Line (test code = 3574) POCT PREG LOT # (test code = 3575) [id number] POCT PREG TEST DATE (test 03/07/2024 code = 3576) Lab Interpretation (test code = Normal 35589-9) [facility] 21:40:37 Test Item Value Reference Range Interpretation Comments APPEARANCE (test code = Hazy Clear A 7171185587) COLOR (test code = Yellow Yellow 0016843933) PH (test code = 4.8-8.0 4836388848) SP GRAVITY (test code = 1.003-1.030 6648013906) GLU U QUAL (test code = Normal Normal 0000518652) BLOOD (test code = 2+ Negative A 0890391858) KETONES (test code = Negative Negative 9298695367) PROTEIN (test code = Negative Negative 2887-8) UROBILIN (test code = Normal Normal 6211710597) BILIRUBIN (test code = Negative Negative 0487308321) NITRITE (test code = Negative Negative 5995366637) LEUK MAXIMINO (test code = Negative Negative 8776716291) RBC/HPF (test code = See_Comment [Autom ated message] 8412236131) The system [employer] generated this result transmitted ref erence range: 0 - 3 HP F. The reference range was not used to int erpret this result as normal/abnormal . WBC/HPF (test code = See_Comment [Autom ated message] 5839214573) The system [employer] generated this result transmitted ref erence range: 0 - 5 HP F. The reference range was not used to int erpret this result as normal/abnormal . BACTERIA (test code = Few Negative A 4774949662) MUCOUS (test code = Slight Negative LPF A 8176388351) SQ EPITH (test code = HPF 8739196017) HYAL CAST (test code = See_Comment [Aut omated message] 6062090259) The system [employer] generated this result transmitted ref erence range: <=2 LPF. The reference range was not used to int erpret this result as normal/abnormal . Lab Interpretation (test Abnormal code = 06182-5) [facility] [id number] 21:04:00 Test Item Value Reference Range Interpretation Comments POCT PREG (test code = 1605) negative On board controls acceptable with present C Line (test code = 3574) POCT PREG LOT # (test code = 3575) [id number] POCT PREG TEST DATE (test 06/01/2022 code = 3576) Lab Interpretation (test code = Normal 77765-2) [facility] [id number] 20:00:00 Test Item Value Reference Range Interpretation Comments POCT PREG (test code = 1605) Negative On board controls acceptable with C Yes Line (test code = 3574) POCT PREG LOT # (test code = 3575) POCT PREG TEST DATE (test code = 3576) [facility] [id number] 20:00:00 Test Item Value Reference Range Interpretation Comments POCT PREG (test code = 1605) Negative On board controls acceptable with C Yes Line (test code = 3574) POCT PREG LOT # (test code = 3575) POCT PREG TEST DATE (test code = 3576) [facility] Center[facility]inalysis2021-03-10 05:59:35 Test Item Value Reference Range Interpretation Comments APPEARANCE (test code = Clear Clear 2014539846) COLOR (test code = Yellow Yellow 6619341812) PH (test code = 4.8-8.0 4054780063) SP GRAVITY (test code = 1.003-1.030 8511352984) GLU U QUAL (test code = Normal Normal 9906399678) BLOOD (test code = 1+ Negative A 0360645141) KETONES (test code = Negative Negative 1092992933) PROTEIN (test code = Negative Negative 2887-8) UROBILIN (test code = Normal Normal 5742637110) BILIRUBIN (test code = Negative Negative 9092767864) NITRITE (test code = Negative Negative 6634498110) LEUK MAXIMINO (test code = Negative Negative 5339612678) RBC/HPF (test code = See_Comment [Autom ated message] 0537961724) The system [employer] generated this result transmitted ref erence range: 0 - 3 HP F. The reference range was not used to int erpret this result as normal/abnormal . WBC/HPF (test code = See_Comment [Autom ated message] 8660603692) The system [employer] generated this result transmitted ref erence range: 0 - 5 HP F. The reference range was not used to int erpret this result as normal/abnormal . BACTERIA (test code = Few Negative A 2930665980) MUCOUS (test code = Slight Negative LPF A 5268378130) SQ EPITH (test code = HPF 3382279071) Lab Interpretation (test Abnormal code = 51766-1) [facility] Metabolic Panel (NA, K, CL, CO2, GLUCOSE, BUN, CREATININE, CA)2020-08-09 05:38:20 Test Item Value Reference Range Interpretation Comments NA (test code = 137 mmol/L 135-145 3465184148) K (test code = 3.8 mmol/L 3.5-5.0 0301548556) CL (test code = 102 mmol/L 98-108 5492438486) CO2 TOTAL (test code = 26 mmol/L 23-31 0106959802) AGAP (test code = 2-16 4132553436) BUN (test code = 9 mg/dL 7-23 3525484841) GLUCOSE (test code = 83 mg/dL 70-110 5821279317) CREATININE (test code 0.67 mg/dL 0.50-1.04 = 5018900583) CALCIUM (test code = 9.4 mg/dL 8.6-10.6 6340967186) eGFR Calculation mL/min/1.73m2 (Non-) (test code = 2177085759) eGFR Calculation mL/min/1.73m2 () (test code = 2630561153) AVA (test code = AVA) Association of [...] or urine or abnormalities in imaging tests). [facility] [id number] 05:05:00 Test Item Value Reference Range Interpretation Comments POCT PREG (test code = 1605) neg On board controls acceptable with yes C Line (test code = 3574) POCT PREG LOT # (test code = 3575) [id number] POCT PREG TEST DATE (test 04/01/2022 code = 3576) Lab Interpretation (test code = Normal 15762-2) [facility] CenterTrop[facility] [id number] 06:59:00 Test Item Value Reference Range Interpretation Comments TROPONIN I (test <0.012 See_Comment [Automated code = 7663203715) message] The system which generated this result [...] ? Lab Interpretation Normal (test code = 74207-7) [facility] Metabolic Panel (NA, K, CL, CO2, GLUCOSE, BUN, CREATININE, CA)2020-01-08 06:48:00 Test Item Value Reference Range Interpretation Comments NA (test code = 138 mmol/L 135-145 4800169408) K (test code = 4.0 mmol/L 3.5-5 0803435415) CL (test code = 106 mmol/L 98-108 5763528960) CO2 TOTAL (test code = 24 mmol/L 23-31 5463584160) AGAP (test code = 2-16 9318084332) BUN (test code = 10 mg/dL 7-23 1273510907) GLUCOSE (test code = 91 mg/dL 70-110 5398291580) CREATININE (test code 0.64 mg/dL 0.5-1.04 = 0159933221) CALCIUM (test code = 9.3 mg/dL 8.6-10.6 5515725191) eGFR Calculation mL/min/1.73m2 (Non-) (test code = 6133747397) eGFR Calculation mL/min/1.73m2 () (test code = 9145357418) AVA (test code = AVA) Association of [...] or urine or abnormalities in imaging tests). [facility] (ALB, T.PRO, BILI T, BU/BC, ALT, AST, ALK PHOS)2020-01-08 06:48:00 Test Item Value Reference Range Interpretation Comments TOTAL BILI (test code = 6996161249) 0.2 mg/dL 0.1-1.1 BILI UNCON (test code = 7928440535) 0.4 mg/dL 0.1-1.1 BILI CONJ (test code = 6694918457) 0.0 mg/dL 0-0.3 T PROTEIN (test code = 8944003426) 7.4 g/dL 6.3-8.2 ALBUMIN (test code = 7649284967) 4.6 g/dL 3.5-5 ALK PHOS (test code = 6887526147) 45 U/L 34-122 ALTv (test code = 1742-6) 22 U/L 5-35 AST(SGOT) (test code = 4969754126) 27 U/L 13-40 Lab Interpretation (test code = Normal 57566-7) [facility] Center[facility] [id number] 06:48:00 Test Item Value Reference Range Interpretation Comments LIPASE (test code = 9134466787) 78 U/L 0-220 Lab Interpretation (test code = Normal 04612-8) [facility] Center[facility]inalysis2020-08-08 06:41:00 Test Item Value Reference Range Interpretation Comments APPEARANCE (test code = Clear Clear 1994137360) COLOR (test code = Colorless Yellow A 5182359987) PH (test code = 4.8-8.0 4792346763) SP GRAVITY (test code = 1.003-1.030 9791443201) GLU U QUAL (test code = Normal Normal 3903193009) BLOOD (test code = 1+ Negative A 3338578520) KETONES (test code = Negative Negative 2385857422) PROTEIN (test code = Negative Negative 2887-8) UROBILIN (test code = Normal Normal 3623313751) BILIRUBIN (test code = Negative Negative [id number]) NITRITE (test code = Negative Negative [id number]) LEUK MAXIMINO (test code = Negative Negative 1694721917) RBC/HPF (test code = See_Comment [Autom ated message] 8130322681) The system [employer] generated this result transmit jill reference range : 0 - 3 HPF. The refe rence range was not u sed to interpret th is result as normal/abnormal . WBC/HPF (test code = See_Comment [Autom ated message] [id number]) The system [employer] generated this result transmit jill reference range : 0 - 5 HPF. The refe rence range was not u sed to interpret th is result as normal/abnormal . BACTERIA (test code = Few Negative A 4079686478) SQ EPITH (test code = HPF 0589403477) Lab Interpretation (test Abnormal code = 08635-8) [facility] with [id number] 06:31:00 Test Item Value Reference Range Interpretation Comments WBC (test code = See_Comment [Automated 4190-2) message] The sy stem which generated this result transmitted reference range : 4.30 - 11.10 10*3/?L. The reference range was not used to interpret this result as normal/abnormal . RBC (test code = See_Comment [Automated 950-8) message] The sy stem which generated this [...] RDW-SD (test code = 39.7 fL 39-49.9 84532-1) RDW-CV (test code = 13.2 % 12-15.5 788-0) PLT (test code = See_Comment H [Automated 777-3) message] The sy stem which generated this result transmitted reference range : 166 - 358 10*3/ ?L. The reference r karishma was not used to interpret this result as normal/abnormal . MPV (test code = 10.2 fL 9.5-12.9 69700-2) NRBC/100 WBC (test See_Comment [Automat ed code = 4967015377) message] The system which generated this result transmitted reference range : 0.0 - 10.0 /100 WBCs. The refer ence range was not u sed to interpret th is result as normal/abnormal . NRBC x10^3 (test code <0.01 See_Comment [Auto mated = [id number]) message] The s ystem which generated this result transmitted reference range : 10*3/?L. The reference range was not used to interpret this result as normal/abnormal . GRAN MAT (NEUT) % 48.6 % (test code = 770-8) IMM GRAN % (test code 0.60 % = 1767141457) LYMPH % (test code = 41.9 % 736-9) MONO % (test code = 6.3 % 5905-5) EOS % (test code = 2.2 % 713-8) BASO % (test code = 0.4 % 706-2) GRAN MAT x10^3(ANC) 5.09 10*3/uL 1.88-7.09 (test code = 2132965215) IMM GRAN x10^3 (test 0.06 10*3/uL 0-0.06 code = 4008275420) LYMPH x10^3 (test code 4.38 10*3/uL 1.32-3.29 H = 731-0) MONO x10^3 (test code 0.66 10*3/uL 0.33-0.92 = 742-7) EOS x10^3 (test code = 0.23 10*3/uL 0.03-0.39 711-2) BASO x10^3 (test code 0.04 10*3/uL 0.01-0.07 = 704-7) Lab Interpretation Abnormal (test code = 86612-2) [id number] Test Item Value Reference Range Interpretation Comments POCT PREG (test code = 1605) negative On board controls acceptable with positive C Line (test code = 3574) POCT PREG LOT # (test code = 3575) [id number] POCT PREG TEST DATE (test code = 3576) Lab Interpretation (test code = Normal 63432-4) [facility]"
[2023-01-17 16:01] LABS: Hematocrit 39.1 % (36.0-45.0); Lymphocytes % 26.5 % (15.3-44.8); MCV 84.6 fL (80-100); Platelets 369 thou/uL (152-406); RBC Red Blood Cell Count 4.61 M/uL (3.86-4.86); Specific Gravity 1.018 (1.005-1.030); Urine Bilirubin NEGATIVE (Negative); Urine Blood Negative (Negative); Urine Clarity Clear (Clear); Urine Color Colorless (Yellow); Urine Glucose NEGATIVE (Negative); Urine Protein NEGATIVE (Negative); Urine Urobilinogen Normal (Normal)
[2023-01-17 16:02] LABS: Specific Gravity 1.018 (1.005-1.030)
[2023-01-17 16:19] LABS: BUN Blood Urea Nitrogen 13 mg/dL (7-18); Bicarbonate 27 mEq/L (21-32); Glomerular Filtration Rate 120 ml/min (=/>90); Glucose Level 91 mg/dL (74-106); Sodium Level 137 mEq/L (136-145)
[2023-01-17 16:25] LABS: HCG, Quantitative < 1 mIU/mL (1-3)
--- NOTE | 2023-01-17 16:29 | EDPHYS ---
Physician Documentation [facility] Name: Gisele Tilley Age: 22 yrs Sex: Female : 2000 Arrival Date: 01/17/2023 Time: 15:01 Bed DIS2 Private MD: ED Physician Casey Mccray HPI: 01/17 16:20 This 22 yrs old Female presents to ER via Ambulatory with complaints of alicia Abdominal Cramping, Possible , Low Back Pain, Dizziness. 16:20 The patient presents to the emergency department with vaginal bleeding, that is light. alicia The estimated gestational age is 0 weeks. Historical: - Allergies: 15:33 PENICILLINS; cm10 - PMHx: 15:33 Depression; Diabetes - NIDDM; ibs; cm10 - Immunization history:: Adult Immunizations. - Social history:: Smoking status: Patient denies any tobacco usage or history of. ROS: 16:21 Constitutional: Negative for fever, chills, and weight loss, Eyes: Negative for injury, alicia pain, redness, and discharge, ENT: Negative for injury, pain, and discharge, Neck: Negative for injury, pain, and swelling, Cardiovascular: Negative for chest pain, palpitations, and edema, Respiratory: Negative for shortness of breath, cough, wheezing, and pleuritic chest pain, Back: Negative for injury and pain, : Negative for injury, bleeding, discharge, and swelling, MS/Extremity: Negative for injury and deformity, Skin: Negative for injury, rash, and discoloration, Neuro: Negative for headache, weakness, numbness, tingling, and seizure, Psych: Negative for depression, anxiety, suicide ideation, homicidal ideation, and hallucinations, Allergy/Immunology: Negative for hives, rash, and allergies, Endocrine: Negative for neck swelling, polydipsia, polyuria, polyphagia, and marked weight changes, Hematologic/Lymphatic: Negative for swollen nodes, abnormal bleeding, and unusual bruising. 16:21 Abdomen/GI: Positive for abdominal cramps. Exam: 16:21 Constitutional: This is a well developed, well nourished patient who is awake, alert, alicia and in no acute distress. Head/Face: Normocephalic, atraumatic. Eyes: Pupils equal round and reactive to light, extra-ocular motions intact. Lids and lashes normal. Conjunctiva and sclera are non-icteric and not injected. Cornea within normal limits. Periorbital areas with no swelling, redness, or edema. ENT: Nares patent. No nasal discharge, no septal abnormalities noted. Tympanic membranes are normal and external auditory canals are clear. Oropharynx with no redness, swelling, or masses, exudates, or evidence of obstruction, uvula midline. Mucous membranes moist. Neck: Trachea midline, no thyromegaly or masses palpated, and no cervical lymphadenopathy. Supple, full range of motion without nuchal rigidity, or vertebral point tenderness. No Meningismus. Chest/axilla: Normal chest wall appearance and motion. Nontender with no deformity. No lesions are appreciated. Cardiovascular: Regular rate and rhythm with a normal S1 and S2. No gallops, murmurs, or rubs. Normal PMI, no JVD. No pulse deficits. Respiratory: Lungs have equal breath sounds bilaterally, clear to auscultation and percussion. No rales, rhonchi or wheezes noted. No increased work of breathing, no retractions or nasal flaring. Abdomen/GI: Soft, non-tender, with normal bowel sounds. No distension or tympany. No guarding or rebound. No evidence of tenderness throughout. Back: No spinal tenderness. No costovertebral tenderness. Full range of motion. Skin: Warm, dry with normal turgor. Normal color with no rashes, no lesions, and no evidence of cellulitis. MS/ Extremity: Pulses equal, no cyanosis. Neurovascular intact. Full, normal range of motion. Neuro: Awake and alert, GCS 15, oriented to person, place, time, and situation. Cranial nerves II-XII grossly intact. Motor strength 5/5 in all extremities. Sensory grossly intact. Cerebellar exam normal. Normal gait. Psych: Awake, alert, with orientation to person, place and time. Behavior, mood, and affect are within normal limits. Vital Signs: 15:29 BP 120 / 95; Pulse 79; Resp 18; Temp 98.4; Pulse Ox 100% on R/A; Weight 96.2 kg; Height cm10 5 ft. 4 in. ; Pain 6/10; 15:29 Body Mass Index 36.40 (96.20 kg, 162.56 cm) cm10 15:29 Pain Scale: Adult cm10 MDM: 15:06 Patient medically screened. [facility] 16:22 Differential diagnosis: Dysmenorrhea, non-specific abd pain, Pyelonephritis, urinary alicia tract infection. Data reviewed: vital signs, nurses notes, lab test result(s), CBC, electrolytes, hepatic panel, urinalysis. Consideration of Admission/Observation Escalation of care including admission/observation considered. I considered the following discharge prescriptions or medication management in the emergency department Medications were administered in the Emergency Department. See MAR. Test considered but Not performed: Ultrasound vag probe usg. Care significantly affected by the following chronic conditions: Diabetes, depression. Counseling: I had a detailed discussion with the patient and/or guardian regarding the historical points, exam findings, and any diagnostic results supporting the discharge/admit diagnosis, lab results, the need for outpatient follow up, for definitive care, a family practitioner, an OB/Gyne specialist. 01/17 15:10 Order name: Abo/rh Typing; Complete Time: 16:44 [facility] 01/17 15:10 Order name: Basic Metabolic Panel; Complete Time: 16:34 [facility] 01/17 15:10 Order name: CBC with Diff; Complete Time: 16:06 [facility] 01/17 15:10 Order name: Test, Urine; Complete Time: 16:06 [facility] 01/17 15:10 Order name: Quantitative Hcg; Complete Time: 16:34 [facility] 01/17 15:10 Order name: Urinalysis w/ reflexes; Complete Time: 16:06 [facility] 01/17 15:10 Order name: IV Saline Lock; Complete Time: 15:50 [facility] 01/17 15:10 Order name: Labs collected and sent; Complete Time: 15:50 [facility] 01/17 15:10 Order name: NPO; Complete Time: 15:51 [facility] Administered Medications: No medications were administered Disposition Summary: 01/17/23 16:28 Discharge Ordered Location: Home alicia Problem: new alicia Symptoms: have improved alicia Condition: Stable alicia Diagnosis - Abdominal pain, unspecified alicia - Amenorrhea, unspecified alicia Followup: alicia - With: Private Physician - When: 2 - 3 days - Reason: Recheck today's complaints, Continuance of care, Re-evaluation by your physician Followup: alicia - With: Leslie Juarez MD - When: 2 - 3 days - Reason: Recheck today's complaints, Re-evaluation by your physician Discharge Instructions: - Discharge Summary Sheet alicia - Abdominal Pain, Adult alicia - Secondary Amenorrhea alicia Forms: - Work release form alicia - Medication Reconciliation Form alicia - Thank You Letter alicia - Antibiotic Education alicia - Prescription Opioid Use alicia - Patient Portal Instructions alicia - Leadership Thank You Letter alicia Signatures: Dispatcher [employer] Casey Rush MD MD cha Martinez, Clarissa RN RN cm10
--- NOTE | 2023-01-17 16:29 | ER ---
Nurse's Notes [facility] Name: Gisele Tilley Age: 22 yrs Sex: Female : 2000 Arrival Date: 01/17/2023 Time: 15:01 Bed DIS2 Private MD: Diagnosis: Abdominal pain, unspecified;Amenorrhea, unspecified Presentation: 01/17 15:29 Chief complaint: Patient states: she was sent over by the help center for cm10 blood work. Pt states that she has had 2 positive tests and 2 negative tests over the last 2 weeks. Pt reports having spotting. Coronavirus screen: Vaccine status: Patient reports being unvaccinated. Ebola Screen: Patient denies travel to an Ebola-affected area in the 21 days before illness onset. No symptoms or risks identified at this time. Initial Sepsis Screen: Does the patient meet any 2 criteria? No. Patient's initial sepsis screen is negative. Does the patient have a suspected source of infection? No. Patient's initial sepsis screen is negative. Risk Assessment: Do you want to hurt yourself or someone else? Patient reports no desire to harm self or others. Onset of symptoms was January 17, 2023. 15:29 Method Of Arrival: Ambulatory cm10 15:29 Acuity: IRIS 3 cm10 Triage Assessment: 16:54 General: Appears in no apparent distress. comfortable, Behavior is calm, cooperative. ss Pain: Denies pain. Neuro: No deficits noted. Level of Consciousness is awake, alert, Oriented to person, place, time, situation. Respiratory: No deficits noted. Airway is patent Respiratory effort is even, unlabored, Respiratory pattern is regular, symmetrical. GI: No deficits noted. : No deficits noted. Historical: - Allergies: 15:33 PENICILLINS; cm10 - PMHx: 15:33 Depression; Diabetes - NIDDM; ibs; cm10 - Immunization history:: Adult Immunizations. - Social history:: Smoking status: Patient denies any tobacco usage or history of. Screenin:56 [facility] ED Fall Risk Assessment (Adult) History of falling in the last 3 months, ss including since admission No falls in past 3 months (0 pts) Confusion or Disorientation No (0 pts) Intoxicated or Sedated No (0 pts) Impaired Gait No (0 pts) Mobility Assist Device Used No (0 pt) Altered Elimination No (0 pt) Score/Fall Risk Level 0 - 2 = Low Risk Oriented to surroundings, Maintained a safe environment. Abuse screen: Denies threats or abuse. Denies injuries from another. Nutritional screening: No deficits noted. Tuberculosis screening: No symptoms or risk factors identified. Assessment: 16:56 Reassessment: See triage assessment. Vital Signs: 15:29 BP 120 / 95; Pulse 79; Resp 18; Temp 98.4; Pulse Ox 100% on R/A; Weight 96.2 kg; Height cm10 5 ft. 4 in. ; Pain 6/10; 15:29 Body Mass Index 36.40 (96.20 kg, 162.56 cm) cm10 15:29 Pain Scale: Adult cm10 ED Course: 15:05 Patient arrived in ED. 15:06 Casey Mccray MD is Attending Physician. [facility] 15:33 Triage completed. cm10 15:33 Arm band placed on Patient placed in waiting room. cm10 15:51 Abo/rh Typing Sent. cm10 15:51 Basic Metabolic Panel Sent. cm10 15:51 CBC with Diff Sent. cm10 15:51 Test, Urine Sent. cm10 15:51 Quantitative Hcg Sent. cm10 15:51 Urinalysis w/ reflexes Sent. cm10 15:51 Initial lab(s) drawn, by ia, sent to lab. Inserted saline lock: 20 gauge in right cm10 antecubital area, using aseptic technique. Blood collected. 16:28 Leslie Juarez MD is Referral Physician. [facility] 16:57 Patient has correct armband on for positive identification. Provided Education on: N/A. 16:57 No provider procedures requiring assistance completed. IV discontinued, intact, ss bleeding controlled, No redness/swelling at site. Pressure dressing applied. Administered Medications: No medications were administered Medication: 16:56 VIS not applicable for this client. Outcome: 16:28 Discharge ordered by . [facility] 16:57 Discharged to home ambulatory. 16:57 Condition: good 16:57 Discharge instructions given to patient, Instructed on discharge instructions, follow up and referral plans. Demonstrated understanding of instructions, follow-up care. 16:58 Patient left the ED. Signatures: Casey Mccray MD MD cha Blanchard, Shelby RN RN Ary Montejo Harjit, Kathie, RN RN cm10
[2023-01-17 17:05] VITALS: BP 120/95; TEMP 98.4; O2SAT 100
== END 2023-01-17 16:58 | disposition home or self-care (01) ==
LOC: ER 15:01
DX: N91.2 Amenorrhea, unspecified (principal)
CPT/HCPCS: 36415; 80048; 81003; 81025; 84702; 85025; 86900; 86901; 99283

== ENCOUNTER 2023-04-06 19:52 | Emergency (ER) | payer SELFPAY ==
--- OUTSIDE RECORDS SUMMARY | 2023-04-06 20:00 | XMS REPORT | Continuity of Care Document ---
:2000 Author Organization [facility] t Address [address] [facility]. [address] [place] [address] Care Team Providers Name Role Phone Nico Francesca Messina Primary Care Physician Corey LEDEZMA Attending Clinician Unavailable Corey Neal Attending Clinician Doctor Unassigned, [place] Attending Clinician Unavailable [facility] Attending Clinician [phone] ALVARO HERNDON Attending Clinician Unavailable Alvaro Herndon MD Attending Clinician PRAKASH ALLAN Attending Clinician Unavailable Prakash Wells S Attending Clinician Finn Felipa WILKINS Attending Clinician [phone] FELIPA BRISENO Attending Clinician Unavailable Annabella Samayoa NP Attending Clinician Lise Garcia RN Attending Clinician Unavailable Jake Jonas MD Attending Clinician Morena Benton DO Attending Clinician MORENA BENTON Attending Clinician Unavailable [place] Attending Clinician EL [place]US[place] Attending Clinician Unavailable Corey LEDEZMA Admitting Clinician Unavailable ALVARO HERNDON Admitting Clinician Unavailable PRAKASH ALLAN Admitting Clinician Unavailable Payers Payer Name Policy Type Policy Number Effective Date Expiration Date [place] MEDICAID PENDING PENDING 2020 2021 00:00:00 00:00:00 Problems Condition Condition Condition Status Onset Resolution Last Treating Co mments Source Name Details Category Date Date Treatment Clinician Date Well woman Well woman Disease Active U nivers exam exam 5-18 ity of 00:00: [place] [facility] Obesity Obesity Disease Active Univers (BMI (BMI 5-18 ity of 30-39.9) 30-39.9) 00:00: Medical Branch Pilonidal Pilonidal Disease Active Uni vers cyst cyst 5-18 ity of 00:00: Medical [place] No known No known Disease Unive rs active active ity of problems problems [facility] Allergies, Adverse Reactions, Alerts Allergy Allergy Status Severity Reaction(s) Onset Inactive Treating Comm ents Source Name Type Date Date Clinician Cat Propensi Active Hives Univers Dander ty to 5-18 ity of adverse 00:00: [place] reaction Medical s [place] CAT DRUG Active Hives Univers DANDER INGREDI 5-18 ity of 00:00: [place] 00 Medical Branch Penicill Propensi Active Hives Univer s ins ty to 9-16 ity of adverse 00:00: [place] reaction Medical s Branch PENICILL Drug Active Hives Univers INS Class 9-16 ity of 00:00: [place] 00 Medical Branch Penicill Propensi Active Hives Univer s ins ty to 9-16 ity of adverse 00:00: [place] reaction Medical s [place] Social History Social Habit Start Date Stop Date Quantity Comments Source Gender identity Universit y [facility] Sexual orientation Univer [facility]ity [facility] [place] [facility] [place] History of tobacco Cigarette Smoker University of use [facility] History [facility] University o f Alcohol Frequency [facility] edical Branch History [facility] University o f Alcohol Std Drinks [place] [facility] [place] History [facility] University o f Alcohol Binge [facility] al Branch Exposure to 2022-06-22 2022-07-02 Not sure [facility] SARS-CoV-2 (event) 00:00:00 12:36:00 [facility] History of Social 2020-10-17 2020-10-17 Univers ity of function 00:00:00 00:00:00 [facility] Cigarettes smoked 2020-10-17 2020-10-17 Univers ity of current (pack per 00:00:00 00:00:00 [facility] ) - Reported Branch Tobacco use and 2020-10-17 2020-10-17 Former smokeless Uni versity of exposure 00:00:00 00:00:00 tobacco user [place] [facility] Alcohol intake 2020-10-17 2020-10-17 Current drinker Unive rsity of 00:00:00 00:00:00 of alcohol [facility] (finding) [place] Tobacco Comment 2020-10-17 2020-10-17 8-10 cigarettes a Un iversity of 00:00:00 00:00:00 day [facility] Alcohol Comment 2020-10-17 2020-10-17 socially Universit y of 00:00:00 00:00:00 [facility] Sex Assigned At [birth year] Universit y of 00:00:00 00:00:00 [facility] Smoking Status Start Date Stop Date Source Smokes tobacco daily 2020-10-17 00:00:00 Univers ity of [facility] Unknown if ever smoked Universit y [facility] Medications Ordered Filled Start Stop Current Ordering Indication Dosage Frequency Signature Comments Components Source Medication Medication Date Date Medication? Clinician (SIG) Name Name ketorolac 2022- No 30mg 30 mg, Unive rs (TORADOL) 01-21 Intramuscu ity of injection 07:00: 06:05 [place], ONCE, [place] 30 mg 00 :00 1 dose, On Medical Tue Branch 01/21/23 at 0200, SHALOM iopamidol 2022- No [id number] 80mL 80 mL, U nivers (ISOVUE 11-27 Intravenou ity o f 370-500 mL) 07:15: 06:24 s, ONCE, 1 [place] injection 00 :00 dose, On Medica l 80 mL Wed Branch 11/27/22 at 0215, Routine NaCl 0.9% 2022-0 2022- No 1000mL at 999 Uni vers (NS) bolus 11-27-28 mL/hr, ity of infusion 05:30: 06:58 1,000 mL, [place] 1,000 mL 00 :00 IV Medical Infusion, Branch ONCE, 1 dose, On Fri11/27/22 at 0030, STAT metoclopram 3-0 2022- No 10mg 10 mg, Uni vers shade HCl 11-27 Slow IV ity of (REGLAN) 04:30: 05:20 Push, [place] injection 00 :00 ONCE, 1 Medical 10 mg dose, On Branch Tu11/26/22 at 2330, SHALOM metoclopram 3-0 Yes [id number] 10mg Take 1 Univers shade HCl 10 6-28 tablet by ity of mg tablet 00:00: mouth [place] 00 every 6 Medical (six) Branch hours. famotidine 3-0 Yes [id number] 20mg Take 1 U nivers 20 mg 6-28 tablet by ity of tablet 00:00: mouth in [place] 00 the Medical morning Branch and 1 tablet in the evening. metoclopram 2023-0 Yes [id number] 10mg Take 1 Univers shade HCl 10 6-28 tablet by ity of mg tablet 00:00: mouth [place] 00 every 6 Medical (six) Branch hours. famotidine 2023-0 Yes [id number] 20mg Take 1 U nivers 20 mg 6-28 tablet by ity of tablet 00:00: mouth in [place] 00 the Medical morning Branch and 1 tablet in the evening. metoclopram 2023-0 Yes [id number] 10mg Take 1 Univers shade HCl 10 6-28 tablet by ity of mg tablet 00:00: mouth [place] 00 every 6 Medical (six) Branch hours. famotidine 2023-0 Yes [id number] 20mg Take 1 U nivers 20 mg 6-28 tablet by ity of tablet 00:00: mouth in [place] 00 the Medical morning Branch and 1 tablet in the evening. metoclopram 2023-0 Yes [id number] 10mg Take 1 Univers shade HCl 10 6-28 tablet by ity of mg tablet 00:00: mouth [place] 00 every 6 Medical (six) Branch hours. famotidine 2023-0 Yes [id number] 20mg Take 1 U nivers 20 mg 6-28 tablet by ity of tablet 00:00: mouth in [place] 00 the Medical morning Branch and 1 tablet in the evening. metoclopram Yes [id number] 10mg Take 1 Univers shade HCl 10 6-28 tablet by ity of mg tablet 00:00: mouth [place] 00 every 6 Medical (six) Branch hours. famotidine Yes [id number] 20mg Take 1 U nivers 20 mg 6-28 tablet by ity of tablet 00:00: mouth in [place] 00 the Medical morning Branch and 1 tablet in the evening. ibuprofen 2022- No 600mg 600 mg, Uni vers (IBU) 07-02 Oral, ity of tablet 600 18:30: 18:57 ONCE, 1 [place] mg 00 :00 dose, On Medical Tue Branch 07/02/22 at 1230, SHALOM clindamycin 2021- No 450mg 450 mg, U nivers (CLEOCIN 09-13 04-14 Oral, ity of HCL) 08:00: 06:55 [...] cyst allergic to PCN clindamycin 2021- No [id number] 450mg Take 3 Univers 150 mg 09-13 04-25 capsules ity of capsule 00:00: 04:59 by mouth 3 [place] 00 :00 (three) Medical times Branch daily for 10 days. norgestimat Yes [id number] 1{tbl} Take 1 Univers e-ethinyl 6-08 tablet by ity o f estradioL 00:00: mouth [place] (ORTHO 00 daily. Medical TRI-CYCLEN, Branch 28,) 0.18/0.215/ 0.25 mg-35 mcg (28) tablet norgestimat Yes [id number] 1{tbl} Take 1 Univers e-ethinyl 6-08 tablet by ity o f estradioL 00:00: mouth [place] (OR[place] 00 daily. [facility] [address] 0.18/0.215/ 0.25 mg-35 mcg (28) tablet norgestimat 2021-0 Yes [id number] 1{tbl} Take 1 Univers e-ethinyl 6-08 tablet by ity o f estradioL 00:00: mouth [place] (ORTHO 00 daily. [place] [address],) 0.18/0.215/ 0.25 mg-35 mcg (28) tablet norgestimat 2021-0 Yes [id number] 1{tbl} Take 1 Univers e-ethinyl 6-08 tablet by ity o f estradioL 00:00: mouth [place] (ORTHO 00 daily. [place] [address],) 0.18/0.215/ 0.25 mg-35 mcg (28) tablet norgestimat 2021-0 Yes [id number] 1{tbl} Take 1 Univers e-ethinyl 6-08 tablet by ity o f estradioL 00:00: mouth [place] (ORTHO 00 daily. [place] [address],) 0.18/0.215/ 0.25 mg-35 mcg (28) tablet norgestimat 1-0 Yes [id number] 1{tbl} Take 1 Univers e-ethinyl 6-08 tablet by ity o f estradioL 00:00: mouth [place] (ORTHO 00 daily. [place] [address],) 0.18/0.215/ 0.25 mg-35 mcg (28) tablet norgestimat 2021-0 Yes [id number] 1{tbl} Take 1 Univers e-ethinyl 6-08 tablet by ity o f estradioL 00:00: mouth [place] (ORTHO 00 daily. [place] [address],) 0.18/0.215/ 0.25 mg-35 mcg (28) tablet norgestimat 2021-0 Yes [id number] 1{tbl} Take 1 Univers e-ethinyl 6-08 tablet by ity o f estradioL 00:00: mouth [place] (ORTHO 00 daily. [place] [address],) 0.18/0.215/ 0.25 mg-35 mcg (28) tablet norgestimat 2020-0 Yes [id number] 1{tbl} Take 1 Univers e-ethinyl 6-08 tablet by ity o f estradioL 00:00: mouth [place] (ORTHO 00 daily. [place] [address],) 0.18/0.215/ 0.25 mg-35 mcg (28) tablet norgestimat 2020-0 Yes [id number] 1{tbl} Take 1 Univers e-ethinyl 6-08 tablet by ity o f estradioL 00:00: mouth [place] (ORTHO 00 daily. [place] [address],) 0.18/0.215/ 0.25 mg-35 mcg (28) tablet norgestimat 2020-0 Yes [id number] 1{tbl} Take 1 Univers e-ethinyl 6-08 tablet by ity o f estradioL 00:00: mouth [place] (ORTHO 00 daily. [place] [address],) 0.18/0.215/ 0.25 mg-35 mcg (28) tablet norgestimat 2020-0 Yes [id number] 1{tbl} Take 1 Univers e-ethinyl 6-08 tablet by ity o f estradioL 00:00: mouth [place] (ORTHO 00 daily. [place] [address],) 0.18/0.215/ 0.25 mg-35 mcg (28) tablet norgestimat 2020-0 Yes [id number] 1{tbl} Take 1 Univers e-ethinyl 6-08 tablet by ity o f estradioL 00:00: mouth [place] (ORTHO 00 daily. [place] [address],) 0.18/0.215/ 0.25 mg-35 mcg (28) tablet norgestimat 2020-0 Yes [id number] 1{tbl} Take 1 Univers e-ethinyl 6-08 tablet by ity o f estradioL 00:00: mouth [place] (ORTHO 00 daily. [place] [address],) 0.18/0.215/ 0.25 mg-35 mcg (28) tablet norgestimat 2020-0 Yes [id number] 1{tbl} Take 1 Univers e-ethinyl 6-08 tablet by ity o f estradioL 00:00: mouth [place] (ORTHO 00 daily. Medical TRI-CYCLEN, Branch 28,) 0.18/0.215/ 0.25 mg-35 mcg (28) tablet norgestimat 0 Yes [id number] 1{tbl} Take 1 Univers e-ethinyl 6-08 tablet by ity o f estradioL 00:00: mouth [place] (ORTHO 00 daily. Medical TRI-CYCLEN, Branch 28,) 0.18/0.215/ 0.25 mg-35 mcg (28) tablet medroxyPROG 2020-2020- No [id number] 10mg Take 1 Univers ESTERone 5-20 05-31 tablet by ity o f (PROVERA) 00:00: 04:59 mouth [place] 10 mg 00 :00 daily for Medical tablet 10 days. [place] medroxyPROG 2020-0 2020- No [id number] 10mg Take 1 Univers ESTERone 5-20 05-31 tablet by ity o f (PROVERA) 00:00: 04:59 mouth [place] 10 mg 00 :00 daily for Medical tablet 10 days. [place] medroxyPROG 2020-0 2020- No [id number] 10mg Take 1 Univers ESTERone 5-20 05-31 tablet by ity o f (PROVERA) 00:00: 04:59 mouth [place] 10 mg 00 :00 daily for Medical tablet 10 days. [place] medroxyPROG 2020-2020- No [id number] 10mg Take 1 Univers ESTERone 5-20 05-31 tablet by ity o f (PROVERA) 00:00: 04:59 mouth [place] 10 mg 00 :00 daily for Medical tablet 10 days. [place] phentermine 0 Yes 37.5mg Take 37.5 Univers 37.5 mg 5-18 mg by ity of capsule 18:21: mouth [place] 18 every Medical morning. [place] phentermine 2020-0 Yes 37.5mg Take 37.5 Univers 37.5 mg 5-18 mg by ity of capsule 18:21: mouth [place] 18 every Medical morning. [place] phentermine 2020-0 Yes 37.5mg Take 37.5 Univers [...] mg 00 :00 ONCE, 1 Medical dose, [facility] 08/08/20 at 2345, SHALOM
Fa culty member [...] times Branch mg per daily. tablet traMADOL 2017-0 Yes 50mg Take 1-2 Unive rs (ULTRAM) [...] times Branch mg per daily. tablet traMADOL 2017- Yes 50mg Take 1-2 Unive rs (ULTRAM) [...] (severe pain, alternate with ibuprofen) . sulfamethox 2017-2020- No 2{tbl} Take 2 U nivers azole-trime [...] (severe pain, alternate with ibuprofen) . sulfamethox 2017-2020- No 2{tbl} Take 2 U nivers azole-trime 9-16 05-18 tablets by i ty of thoprim 00:00: 00:00 mouth 2 [place] (BACTRIM 00 :00 (two) Medical DS) 800-160 times Branch mg per daily. tablet traMADOL 2017-2020- No 50mg Take 1-2 Univ ers (ULTRAM) 50 9-16 05-18 tablets by i ty of mg tablet 00:00: 00:00 mouth [place] 00 :00 every 8 Medical (eight) Branch hours as needed (severe pain, alternate with ibuprofen) . Immunizations Ordered Filled Date Status Comments Source Immunization Name Immunization Name HPV9 2020-10-17 Completed University of 00:00:00 [facility] HPV9 2020-10-17 Completed University of 00:00:00 [facility] HPV9 2020-10-17 Completed University of 00:00:00 [facility] HPV9 2020-10-17 Completed University of 00:00:00 [facility] HPV9 2020-10-17 Completed University of 00:00:00 [facility] HPV9 2020-10-17 Completed University of 00:00:00 [facility] HPV9 2020-10-17 Completed University of 00:00:00 [facility] HPV9 2020-10-17 Completed University of 00:00:00 [facility] HPV9 2020-10-17 Completed University of 00:00:00 [facility] HPV9 2020-10-17 Completed University of 00:00:00 [facility] HPV9 2020-10-17 Completed University of 00:00:00 [facility] HPV9 2020-10-17 Completed University of 00:00:00 [facility] HPV9 2020-10-17 Completed University of 00:00:00 [facility] HPV9 2020-10-17 Completed University of 00:00:00 [facility] HPV9 2020-10-17 Completed University of 00:00:00 [facility] HPV9 2020-10-17 Completed University of 00:00:00 [facility] HPV9 2020-10-17 Completed University of 00:00:00 [facility] HPV9 2020-10-17 Completed University of 00:00:00 [facility] HPV9 2020-10-17 Completed University of 00:00:00 [facility] HPV9 2020-10-17 Completed University of 00:00:00 [facility] HPV9 2020-10-17 Completed University of 00:00:00 [facility] HPV9 2020-10-17 Completed University of 00:00:00 [facility] HPV9 2020-10-17 Completed University of 00:00:00 [facility] HPV9 2020-10-17 Completed University of 00:00:00 [facility] HPV9 2020-10-17 Completed University of 00:00:00 [facility] Branch HPV9 2020-10-17 Completed University of 00:00:00 [place] [facility] HPV9 2020-10-17 Completed University of 00:00:00 [place] [facility] HPV 2018-09-15 Completed University of 00:00:00 [place] [facility] Meningococcal 2018-09-15 Completed University of Vaccine 00:00:00 [facility] Branch HPV 2018-09-15 Completed University of 00:00:00 [place] [facility] Meningococcal 2018-09-15 Completed University of Vaccine 00:00:00 [place] [facility] HPV 2018-09-15 Completed University of 00:00:00 [facility] Branch Meningococcal 2018-09-15 Completed University of Vaccine 00:00:00 [facility] Branch HPV 2018-09-15 Completed University of 00:00:00 [facility] Branch Meningococcal 2018-09-15 Completed University of Vaccine 00:00:00 [facility] Branch HPV 2018-09-15 Completed University of 00:00:00 [facility] Branch Meningococcal 2018-09-15 Completed University of Vaccine 00:00:00 [facility] Branch HPV 2018-09-15 Completed University of 00:00:00 [facility] Branch Meningococcal 2018-09-15 Completed University of Vaccine 00:00:00 [facility] Branch HPV 2018-09-15 Completed University of 00:00:00 [facility] Branch Meningococcal 2018-09-15 Completed University of Vaccine 00:00:00 [facility] Branch HPV 2018-09-15 Completed University of 00:00:00 [facility] Branch Meningococcal 2018-09-15 Completed University of Vaccine 00:00:00 [facility] Branch HPV 2018-09-15 Completed University of 00:00:00 [place] [facility] Meningococcal 2018-09-15 Completed University of Vaccine 00:00:00 [place] [facility] HPV 2018-09-15 Completed University of 00:00:00 [facility] Branch Meningococcal 2018-09-15 Completed University of Vaccine 00:00:00 [facility] Branch HPV 2018-09-15 Completed University of 00:00:00 [place] [facility] Meningococcal 2018-09-15 Completed University of Vaccine 00:00:00 [place] [facility] HPV 2018-09-15 Completed University of 00:00:00 [place] [facility] Meningococcal 2018-09-15 Completed University of Vaccine 00:00:00 [place] [facility] HPV 2018-09-15 Completed University of 00:00:00 [place] [facility] Meningococcal 2018-09-15 Completed University of Vaccine 00:00:00 [facility] Branch HPV 2018-09-15 Completed University of 00:00:00 [place] [facility] Meningococcal 2018-09-15 Completed University of Vaccine 00:00:00 [place] [facility] HPV 2018-09-15 Completed University of 00:00:00 [place] [facility] Meningococcal 2018-09-15 Completed University of Vaccine 00:00:00 [facility] Branch HPV 2018-09-15 Completed University of 00:00:00 [place] [facility] Meningococcal 2018-09-15 Completed University of Vaccine 00:00:00 [place] [facility] HPV 2018-09-15 Completed University of 00:00:00 [facility] Branch Meningococcal 2018-09-15 Completed University of Vaccine 00:00:00 [facility] Branch HPV 2018-09-15 Completed University of 00:00:00 [facility] Branch Meningococcal 2018-09-15 Completed University of Vaccine 00:00:00 [facility] HPV 2018-09-15 Completed University of 00:00:00 [facility] Branch Meningococcal 2018-09-15 Completed University of Vaccine 00:00:00 [facility] Branch HPV 2018-09-15 Completed University of 00:00:00 [facility] Meningococcal 2018-09-15 Completed University of Vaccine 00:00:00 [facility] HPV 2018-09-15 Completed University of 00:00:00 [facility] Branch Meningococcal 2018-09-15 Completed University of Vaccine 00:00:00 [facility] HPV 2018-09-15 Completed University of 00:00:00 [facility] Meningococcal 2018-09-15 Completed University of Vaccine 00:00:00 [facility] HPV 2018-09-15 Completed University of 00:00:00 [facility] Branch Meningococcal 2018-09-15 Completed University of Vaccine 00:00:00 [facility] Branch HPV 2018-09-15 Completed University of 00:00:00 [facility] Branch Meningococcal 2018-09-15 Completed University of Vaccine 00:00:00 [facility] Branch HPV 2018-09-15 Completed University of 00:00:00 [facility] Branch Meningococcal 2018-09-15 Completed University of Vaccine 00:00:00 [facility] Branch HPV 2018-09-15 Completed University of 00:00:00 [place] [facility] Meningococcal 2018-09-15 Completed University of Vaccine 00:00:00 [place] [facility] HPV 2018-09-15 Completed University of 00:00:00 [place] [facility] Meningococcal 2018-09-15 Completed University of Vaccine 00:00:00 [facility] HEPATITIS A 2012-01-21 Completed University of 00:00:00 [facility] Meningococcal 2012-01-21 Completed University of Vaccine 00:00:00 [facility] TDAP 2012-01-21 Completed University of 00:00:00 [facility] Varicella 2012-01-21 Completed University of (varivax)(chicken 00:00:00 [place] M edical pox) Branch HEPATITIS A 2012-01-21 Completed University of 00:00:00 [facility] Meningococcal 2012-01-21 Completed University of Vaccine 00:00:00 [facility] TDAP 2012-01-21 Completed University of 00:00:00 [facility] Varicella 2012-01-21 Completed University of (varivax)(chicken 00:00:00 [place] [facility] edical pox) Branch HEPATITIS A 2012-01-21 Completed University of 00:00:00 [facility] Meningococcal 2012-01-21 Completed University of Vaccine 00:00:00 [facility] TDAP 2012-01-21 Completed University of 00:00:00 [facility] Varicella 2012-01-21 Completed University of (varivax)(chicken 00:00:00 [place] M edical pox) Branch HEPATITIS A 2012-01-21 Completed University of 00:00:00 [facility] Meningococcal 2012-01-21 Completed University of Vaccine 00:00:00 [facility] TDAP 2012-01-21 Completed University of 00:00:00 [facility] Varicella 2012-01-21 Completed University of (varivax)(chicken 00:00:00 [place] M edical pox) Branch HEPATITIS A 2012-01-21 Completed University of 00:00:00 [facility] Meningococcal 2012-01-21 Completed University of Vaccine 00:00:00 [facility] TDAP 2012-01-21 Completed University of 00:00:00 [facility] Varicella 2012-01-21 Completed University of (varivax)(chicken 00:00:00 [place] [facility] edical pox) Branch HEPATITIS A 2012-01-21 Completed University of 00:00:00 [facility] Meningococcal 2012-01-21 Completed University of Vaccine 00:00:00 [facility] TDAP 2012-01-21 Completed University of 00:00:00 [facility] Varicella 2012-01-21 Completed University of (varivax)(chicken 00:00:00 [place] M edical pox) Branch HEPATITIS A 2012-01-21 Completed University of 00:00:00 [facility] Meningococcal 2012-01-21 Completed University of Vaccine 00:00:00 [facility] TDAP 2012-01-21 Completed University of 00:00:00 [facility] Varicella 2012-01-21 Completed University of (varivax)(chicken 00:00:00 [place] M edical pox) Branch HEPATITIS A 2012-01-21 Completed University of 00:00:00 [facility] Meningococcal 2012-01-21 Completed University of Vaccine 00:00:00 [facility] TDAP 2012-01-21 Completed University of 00:00:00 [facility] Varicella 2012-01-21 Completed University of (varivax)(chicken 00:00:00 [place] M edical pox) Branch HEPATITIS A 2012-01-21 Completed University of 00:00:00 [facility] Meningococcal 2012-01-21 Completed [facility] Vaccine 00:00:00 [facility] TDAP 2012-01-21 Completed [facility] 00:00:00 [facility] Varicella 2012-01-21 Completed [facility] (varivax)(chicken 00:00:00 [place] [facility] pox) [facility] HEPATITIS A 2012-01-21 Completed [facility] 00:00:00 [facility] Meningococcal 2012-01-21 Completed [facility] Vaccine 00:00:00 [facility] TDAP 2012-01-21 Completed [facility] 00:00:00 [facility] Varicella 2012-01-21 Completed [facility] (varivax)(chicken 00:00:00 [place] [facility] pox) [facility] HEPATITIS A 2012-01-21 Completed [facility] 00:00:00 [facility] Meningococcal 2012-01-21 Completed [facility] Vaccine 00:00:00 [facility] TDAP 2012-01-21 Completed [facility] 00:00:00 [facility] Varicella 2012-01-21 Completed [facility] (varivax)(chicken 00:00:00 [place] [facility] pox) [facility] HEPATITIS A 2012-01-21 Completed [facility] 00:00:00 [facility] Meningococcal 2012-01-21 Completed [facility] Vaccine 00:00:00 [facility] TDAP 2012-01-21 Completed [facility] 00:00:00 [facility] Varicella 2012-01-21 Completed [facility] (varivax)(chicken 00:00:00 [place] [facility] pox) [facility] HEPATITIS A 2012-01-21 Completed [facility] 00:00:00 [facility] Meningococcal 2012-01-21 Completed [facility] Vaccine 00:00:00 [facility] TDAP 2012-01-21 Completed [facility] 00:00:00 [facility] Varicella 2012-01-21 Completed [facility] (varivax)(chicken 00:00:00 [place] [facility] pox) [facility] HEPATITIS A 2012-01-21 Completed [facility] 00:00:00 [facility] Meningococcal 2012-01-21 Completed [facility] Vaccine 00:00:00 [facility] TDAP 2012-01-21 Completed [facility] 00:00:00 [facility] Varicella 2012-01-21 Completed [facility] (varivax)(chicken 00:00:00 [facility] edical pox) Branch HEPATITIS A 2012-01-21 Completed [facility] 00:00:00 [facility] Meningococcal 2012-01-21 Completed [facility] Vaccine 00:00:00 [facility] TDAP 2012-01-21 Completed [facility] 00:00:00 [facility] Varicella 2012-01-21 Completed [facility] (varivax)(chicken 00:00:00 [facility] edical pox) Branch HEPATITIS A 2012-01-21 Completed [facility] 00:00:00 [facility] Meningococcal 2012-01-21 Completed [facility] Vaccine 00:00:00 [facility] TDAP 2012-01-21 Completed [facility] 00:00:00 [facility] Varicella 2012-01-21 Completed [facility] (varivax)(chicken 00:00:00 [place] [facility] pox) Branch HEPATITIS A 2012-01-21 Completed [facility] 00:00:00 [facility] Meningococcal 2012-01-21 Completed [facility] Vaccine 00:00:00 [facility] TDAP 2012-01-21 Completed [facility] 00:00:00 [facility] Varicella 2012-01-21 Completed [facility] (varivax)(chicken 00:00:00 [facility] edical pox) Branch HEPATITIS A 2012-01-21 Completed [facility] 00:00:00 [facility] Meningococcal 2012-01-21 Completed [facility] Vaccine 00:00:00 [facility] TDAP 2012-01-21 Completed [facility] 00:00:00 [facility] Varicella 2012-01-21 Completed [facility] (varivax)(chicken 00:00:00 [place] [facility] pox) [facility] HEPATITIS A 2012-01-21 Completed [facility] 00:00:00 [facility] Meningococcal 2012-01-21 Completed [facility] Vaccine 00:00:00 [facility] TDAP 2012-01-21 Completed [facility] 00:00:00 [facility] Varicella 2012-01-21 Completed [facility] (varivax)(chicken 00:00:00 [place] [facility] pox) [facility] HEPATITIS A 2012-01-21 Completed [facility] 00:00:00 [facility] Meningococcal 2012-01-21 Completed [facility] Vaccine 00:00:00 [facility] TDAP 2012-01-21 Completed [facility] 00:00:00 [facility] Varicella 2012-01-21 Completed [facility] (varivax)(chicken 00:00:00 [place] [facility] pox) [facility] HEPATITIS A 2012-01-21 Completed [facility] 00:00:00 [facility] Meningococcal 2012-01-21 Completed [facility] Vaccine 00:00:00 [facility] TDAP 2012-01-21 Completed [facility] 00:00:00 [facility] Varicella 2012-01-21 Completed [facility] (varivax)(chicken 00:00:00 [place] [facility] pox) [facility] HEPATITIS A 2012-01-21 Completed [facility] 00:00:00 [facility] Meningococcal 2012-01-21 Completed [facility] Vaccine 00:00:00 [facility] TDAP 2012-01-21 Completed [facility] 00:00:00 [facility] Varicella 2012-01-21 Completed [facility] (varivax)(chicken 00:00:00 [place] [facility] pox) [facility] HEPATITIS A 2012-01-21 Completed [facility] 00:00:00 [facility] Meningococcal 2012-01-21 Completed [facility] Vaccine 00:00:00 [facility] TDAP 2012-01-21 Completed [facility] 00:00:00 [facility] Varicella 2012-01-21 Completed [facility] (varivax)(chicken 00:00:00 [place] [facility] pox) [facility] HEPATITIS A 2012-01-21 Completed [facility] 00:00:00 [facility] Meningococcal 2012-01-21 Completed [facility] Vaccine 00:00:00 [facility] TDAP 2012-01-21 Completed [facility] 00:00:00 [facility] Varicella 2012-01-21 Completed [facility] (varivax)(chicken 00:00:00 [place] [facility] pox) [facility] HEPATITIS A 2012-01-21 Completed [facility] 00:00:00 [facility] Meningococcal 2012-01-21 Completed [facility] Vaccine 00:00:00 [facility] TDAP 2012-01-21 Completed [facility] 00:00:00 [facility] Varicella 2012-01-21 Completed [facility] (varivax)(chicken 00:00:00 [place] [facility] pox) [facility] HEPATITIS A 2012-01-21 Completed [facility] 00:00:00 [facility] Meningococcal 2012-01-21 Completed [facility] Vaccine 00:00:00 [facility] TDAP 2012-01-21 Completed [facility] 00:00:00 [facility] Varicella 2012-01-21 Completed [facility] (varivax)(chicken 00:00:00 [facility] edical pox) Branch HEPATITIS A 2012-01-21 Completed [facility] 00:00:00 [facility] Meningococcal 2012-01-21 Completed [facility] Vaccine 00:00:00 [facility] TDAP 2012-01-21 Completed [facility] 00:00:00 [facility] Varicella 2012-01-21 Completed [facility] (varivax)(chicken 00:00:00 [facility] edical pox) Branch MMR 2005-01-08 Completed [facility] 00:00:00 [facility] MMR 2005-01-08 Completed [facility] 00:00:00 [facility] MMR 2005-01-08 Completed [facility] 00:00:00 [facility] MMR 2005-01-08 Completed [facility] 00:00:00 [facility] MMR 2005-01-08 Completed [facility] 00:00:00 [facility] MMR 2005-01-08 Completed [facility] 00:00:00 [facility] MMR 2005-01-08 Completed [facility] 00:00:00 [facility] MMR 2005-01-08 Completed [facility] 00:00:00 [facility] MMR 2005-01-08 Completed [facility] 00:00:00 [facility] MMR 2005-01-08 Completed [facility] 00:00:00 [facility] MMR 2005-01-08 Completed [facility] 00:00:00 [facility] MMR 2005-01-08 Completed [facility] 00:00:00 [facility] MMR 2005-01-08 Completed [facility] 00:00:00 [facility] MMR 2005-01-08 Completed [facility] 00:00:00 [facility] MMR 2005-01-08 Completed [facility] 00:00:00 [facility] MMR 2005-01-08 Completed [facility] 00:00:00 [facility] MMR 2005-01-08 Completed [facility] 00:00:00 [facility] MMR 2005-01-08 Completed [facility] 00:00:00 [facility] MMR 2005-01-08 Completed [facility] 00:00:00 [facility] MMR 2005-01-08 Completed [facility] 00:00:00 [facility] MMR 2005-01-08 Completed [facility] 00:00:00 [facility] MMR 2005-01-08 Completed [facility] 00:00:00 [facility] MMR 2005-01-08 Completed [facility] 00:00:00 [facility] MMR 2005-01-08 Completed [facility] 00:00:00 [facility] MMR 2005-01-08 Completed [facility] 00:00:00 [facility] MMR 2005-01-08 Completed [facility] 00:00:00 [facility] MMR 2005-01-08 Completed [facility] 00:00:00 [facility] DTAP 2004-12-07 Completed [facility] 00:00:00 [facility] MMR 2004-12-07 Completed [facility] 00:00:00 [facility] Branch Pneumococcal 13 2004-12-07 Completed Universit y of Conjugate, PCV13 00:00:00 [facility] dical (Prevnar 13) Branch Polio (IPV/OPV) 2004-12-07 Completed Universit y of 00:00:00 [facility] Varicella 2004-12-07 Completed [facility] (varivax)(chicken 00:00:00 [place] [facility] pox) [facility] DTAP 2004-12-07 Completed [facility] 00:00:00 [facility] MMR 2004-12-07 Completed [facility] 00:00:00 [facility] Pneumococcal 13 2004-12-07 Completed Universit y of Conjugate, PCV13 00:00:00 [facility] dical (Prevnar 13) Branch Polio (IPV/OPV) 2004-12-07 Completed [facility] y of 00:00:00 [facility] Varicella 2004-12-07 Completed [facility] (varivax)(chicken 00:00:00 [place] [facility] pox) Branch DTAP 2004-12-07 Completed [facility] 00:00:00 [facility] MMR 2004-12-07 Completed [facility] 00:00:00 [facility] Pneumococcal 13 2004-12-07 Completed Universit y of Conjugate, PCV13 00:00:00 [place] [facility] (Prevnar 13) Branch Polio (IPV/OPV) 2004-12-07 Completed [facility] y of 00:00:00 [facility] Varicella 2004-12-07 Completed [facility] (varivax)(chicken 00:00:00 [place] [facility] pox) [facility] DTAP 2004-12-07 Completed [facility] 00:00:00 [facility] MMR 2004-12-07 Completed [facility] 00:00:00 [facility] Branch Pneumococcal 13 2004-12-07 Completed Universit y of Conjugate, PCV13 00:00:00 [facility] dical (Prevnar 13) Branch Polio (IPV/OPV) 2004-12-07 Completed Universit y of 00:00:00 [facility] Varicella 2004-12-07 Completed [facility] (varivax)(chicken 00:00:00 [place] [facility] pox) [facility] DTAP 2004-12-07 Completed [facility] 00:00:00 [facility] MMR 2004-12-07 Completed [facility] 00:00:00 [facility] Pneumococcal 13 2004-12-07 Completed Universit y of Conjugate, PCV13 00:00:00 [facility] dical (Prevnar 13) Branch Polio (IPV/OPV) 2004-12-07 Completed [facility] y of 00:00:00 [facility] Varicella 2004-12-07 Completed [facility] (varivax)(chicken 00:00:00 [place] [facility] pox) [facility] DTAP 2004-12-07 Completed [facility] 00:00:00 [facility] MMR 2004-12-07 Completed [facility] 00:00:00 [facility] Branch Pneumococcal 13 2004-12-07 Completed Universit y of Conjugate, PCV13 00:00:00 [facility] dical (Prevnar 13) Branch Polio (IPV/OPV) 2004-12-07 Completed Univers[facility] y of 00:00:00 [facility] Branch Varicella 2004-12-07 Completed [facility] (varivax)(chicken 00:00:00 [place] [facility] pox) [facility] DTAP 2004-12-07 Completed [facility] 00:00:00 [facility] MMR 2004-12-07 Completed [facility] 00:00:00 [facility] Branch Pneumococcal 13 2004-12-07 Completed Universit y of Conjugate, PCV13 00:00:00 [facility] dical (Prevnar 13) Branch Polio (IPV/OPV) 2004-12-07 Completed [facility] y of 00:00:00 [facility] Varicella 2004-12-07 Completed [facility] (varivax)(chicken 00:00:00 [place] [facility] pox) [facility] DTAP 2004-12-07 Completed [facility] 00:00:00 [facility] MMR 2004-12-07 Completed [facility] 00:00:00 [facility] Pneumococcal 13 2004-12-07 Completed Universit y of Conjugate, PCV13 00:00:00 [facility] dical (Prevnar 13) Branch Polio (IPV/OPV) 2004-12-07 Completed Univers[facility] y of 00:00:00 [facility] Varicella 2004-12-07 Completed [facility] (varivax)(chicken 00:00:00 [place] [facility] pox) Branch DTAP 2004-12-07 Completed [facility] 00:00:00 [facility] MMR 2004-12-07 Completed [facility] 00:00:00 [facility] Pneumococcal 13 2004-12-07 Completed Universit y of Conjugate, PCV13 00:00:00 [facility] dical (Prevnar 13) Branch Polio (IPV/OPV) 2004-12-07 Completed [facility] y of 00:00:00 [facility] Varicella 2004-12-07 Completed [facility] (varivax)(chicken 00:00:00 [place] [facility] pox) Branch DTAP 2004-12-07 Completed [facility] 00:00:00 [facility] MMR 2004-12-07 Completed [facility] 00:00:00 [facility] Pneumococcal 13 2004-12-07 Completed Universit y of Conjugate, PCV13 00:00:00 [facility] dical (Prevnar 13) Branch Polio (IPV/OPV) 2004-12-07 Completed [facility] y of 00:00:00 [facility] Varicella 2004-12-07 Completed [facility] (varivax)(chicken 00:00:00 [place] [facility] pox) Branch DTAP 2004-12-07 Completed [facility] 00:00:00 [facility] MMR 2004-12-07 Completed [facility] 00:00:00 [facility] Pneumococcal 13 2004-12-07 Completed Universit y of Conjugate, PCV13 00:00:00 [facility] dical (Prevnar 13) Branch Polio (IPV/OPV) 2004-12-07 Completed [facility] y of 00:00:00 [facility] Varicella 2004-12-07 Completed [facility] (varivax)(chicken 00:00:00 [place] [facility] pox) Branch DTAP 2004-12-07 Completed [facility] 00:00:00 [facility] MMR 2004-12-07 Completed [facility] 00:00:00 [facility] Pneumococcal 13 2004-12-07 Completed Universit y of Conjugate, PCV13 00:00:00 [place] [facility] (Prevnar 13) Branch Polio (IPV/OPV) 2004-12-07 Completed [facility] y of 00:00:00 [facility] Varicella 2004-12-07 Completed [facility] (varivax)(chicken 00:00:00 [place] [facility] pox) Branch DTAP 2004-12-07 Completed [facility] 00:00:00 [facility] MMR 2004-12-07 Completed [facility] 00:00:00 [facility] Pneumococcal 13 2004-12-07 Completed Universit y of Conjugate, PCV13 00:00:00 [facility] dical (Prevnar 13) Branch Polio (IPV/OPV) 2004-12-07 Completed Univers[facility] y of 00:00:00 [facility] Varicella 2004-12-07 Completed [facility] (varivax)(chicken 00:00:00 [place] [facility] pox) Branch DTAP 2004-12-07 Completed [facility] 00:00:00 [facility] MMR 2004-12-07 Completed [facility] 00:00:00 [facility] Pneumococcal 13 2004-12-07 Completed Universit y of Conjugate, PCV13 00:00:00 [facility] dical (Prevnar 13) Branch Polio (IPV/OPV) 2004-12-07 Completed [facility] y of 00:00:00 [facility] Varicella 2004-12-07 Completed [facility] (varivax)(chicken 00:00:00 [place] [facility] pox) Branch DTAP 2004-12-07 Completed [facility] 00:00:00 [facility] MMR 2004-12-07 Completed [facility] 00:00:00 [facility] Pneumococcal 13 2004-12-07 Completed Universit y of Conjugate, PCV13 00:00:00 [facility] dical (Prevnar 13) Branch Polio (IPV/OPV) 2004-12-07 Completed [facility] y of 00:00:00 [facility] Varicella 2004-12-07 Completed [facility] (varivax)(chicken 00:00:00 [place] [facility] pox) Branch DTAP 2004-12-07 Completed [facility] 00:00:00 [facility] MMR 2004-12-07 Completed [facility] 00:00:00 [facility] Branch Pneumococcal 13 2004-12-07 Completed Universit y of Conjugate, PCV13 00:00:00 [facility] dical (Prevnar 13) Branch Polio (IPV/OPV) 2004-12-07 Completed Universit y of 00:00:00 [facility] Branch Varicella 2004-12-07 Completed [facility] of (varivax)(chicken 00:00:00 [facility] edical pox) Branch DTAP 2004-12-07 Completed [facility] of 00:00:00 [facility] Branch MMR 2004-12-07 Completed [facility] of 00:00:00 [facility] Branch Pneumococcal 13 2004-12-07 Completed Universit y of Conjugate, PCV13 00:00:00 [facility] dical (Prevnar 13) Branch Polio (IPV/OPV) 2004-12-07 Completed Universit y of 00:00:00 [facility] Branch Varicella 2004-12-07 Completed [facility] (varivax)(chicken 00:00:00 [facility] edical pox) Branch DTAP 2004-12-07 Completed [facility] 00:00:00 [facility] MMR 2004-12-07 Completed [facility] 00:00:00 [facility] Branch Pneumococcal 13 2004-12-07 Completed Universit y of Conjugate, PCV13 00:00:00 [facility] dical (Prevnar 13) Branch Polio (IPV/OPV) 2004-12-07 Completed Universit y of 00:00:00 [facility] Varicella 2004-12-07 Completed [facility] (varivax)(chicken 00:00:00 [place] [facility] pox) Branch DTAP 2004-12-07 Completed [facility] 00:00:00 [facility] MMR 2004-12-07 Completed [facility] 00:00:00 [facility] Pneumococcal 13 2004-12-07 Completed Universit y of Conjugate, PCV13 00:00:00 [facility] dical (Prevnar 13) Branch Polio (IPV/OPV) 2004-12-07 Completed Univers[facility] y of 00:00:00 [facility] Varicella 2004-12-07 Completed [facility] (varivax)(chicken 00:00:00 [place] [facility] pox) Branch DTAP 2004-12-07 Completed [facility] 00:00:00 [facility] MMR 2004-12-07 Completed [facility] 00:00:00 [facility] Pneumococcal 13 2004-12-07 Completed Universit y of Conjugate, PCV13 00:00:00 [facility] dical (Prevnar 13) Branch Polio (IPV/OPV) 2004-12-07 Completed Univers[facility] y of 00:00:00 [facility] Varicella 2004-12-07 Completed [facility] (varivax)(chicken 00:00:00 [place] [facility] pox) Branch DTAP 2004-12-07 Completed [facility] 00:00:00 [facility] MMR 2004-12-07 Completed [facility] 00:00:00 [facility] Pneumococcal 13 2004-12-07 Completed Universit y of Conjugate, PCV13 00:00:00 [facility] dical (Prevnar 13) Branch Polio (IPV/OPV) 2004-12-07 Completed Univers[facility] y of 00:00:00 [facility] Varicella 2004-12-07 Completed [facility] of (varivax)(chicken 00:00:00 [facility] edical pox) Branch DTAP 2004-12-07 Completed [facility] 00:00:00 [facility] MMR 2004-12-07 Completed [facility] 00:00:00 [facility] Branch Pneumococcal 13 2004-12-07 Completed Universit y of Conjugate, PCV13 00:00:00 [facility] dical (Prevnar 13) Branch Polio (IPV/OPV) 2004-12-07 Completed [facility] y of 00:00:00 [facility] Varicella 2004-12-07 Completed [facility] (varivax)(chicken 00:00:00 [place] [facility] pox) Branch DTAP 2004-12-07 Completed [facility] 00:00:00 [facility] MMR 2004-12-07 Completed [facility] 00:00:00 [facility] Pneumococcal 13 2004-12-07 Completed Universit y of Conjugate, PCV13 00:00:00 [facility] dical (Prevnar 13) Branch Polio (IPV/OPV) 2004-12-07 Completed [facility] y of 00:00:00 [facility] Varicella 2004-12-07 Completed [facility] (varivax)(chicken 00:00:00 [place] [facility] pox) Branch DTAP 2004-12-07 Completed [facility] 00:00:00 [facility] MMR 2004-12-07 Completed [facility] 00:00:00 [facility] Pneumococcal 13 2004-12-07 Completed Universit y of Conjugate, PCV13 00:00:00 [facility] dical (Prevnar 13) Branch Polio (IPV/OPV) 2004-12-07 Completed [facility] y of 00:00:00 [facility] Varicella 2004-12-07 Completed [facility] (varivax)(chicken 00:00:00 [place] [facility] pox) Branch DTAP 2004-12-07 Completed [facility] 00:00:00 [facility] MMR 2004-12-07 Completed [facility] 00:00:00 [facility] Pneumococcal 13 2004-12-07 Completed Universit y of Conjugate, PCV13 00:00:00 [facility] dical (Prevnar 13) Branch Polio (IPV/OPV) 2004-12-07 Completed [facility] 00:00:00 [facility] Varicella 2004-12-07 Completed [facility] of (varivax)(chicken 00:00:00 [facility] edical pox) Branch DTAP 2004-12-07 Completed [facility] 00:00:00 [facility] MMR 2004-12-07 Completed [facility] 00:00:00 [facility] Pneumococcal 13 2004-12-07 Completed [facility] Conjugate, PCV13 00:00:00 [facility] dical (Prevnar 13) Branch Polio (IPV/OPV) 2004-12-07 Completed [facility] 00:00:00 [facility] Varicella 2004-12-07 Completed [facility] of (varivax)(chicken 00:00:00 [place] [facility] pox) [facility] DTAP 2004-12-07 Completed [facility] 00:00:00 [facility] MMR 2004-12-07 Completed [facility] 00:00:00 [facility] Pneumococcal 13 2004-12-07 Completed [facility] Conjugate, PCV13 00:00:00 [facility] dical (Prevnar 13) Branch Polio (IPV/OPV) 2004-12-07 Completed [facility] 00:00:00 [facility] Varicella 2004-12-07 Completed [facility] of (varivax)(chicken 00:00:00 [facility] edical pox) Branch DTAP 2001-03-04 Completed [facility] 00:00:00 [facility] HIB 3 Dose Schedule 2001-03-04 Completed [facility]ive [facility]ity of 00:00:00 [facility] Hep B, Adol or Pedi 2001-03-04 Completed [facility] of Dosage 00:00:00 [facility] Polio (IPV/OPV) 2001-03-04 Completed [facility] 00:00:00 [facility] DTAP 2001-03-04 Completed [facility] 00:00:00 [facility] HIB 3 Dose Schedule 2001-03-04 Completed [facility]ive rsity of 00:00:00 [facility] Hep B, Adol or Pedi 2001-03-04 Completed [facility]ive [facility] of Dosage 00:00:00 [facility] Polio (IPV/OPV) 2001-03-04 Completed [facility] 00:00:00 [facility] DTAP 2001-03-04 Completed [facility] 00:00:00 [facility] HIB 3 Dose Schedule 2001-03-04 Completed [facility] of 00:00:00 [facility] Hep B, Adol or Pedi 2001-03-04 Completed [facility] of Dosage 00:00:00 [facility] Polio (IPV/OPV) 2001-03-04 Completed [facility] 00:00:00 [facility] DTAP 2001-03-04 Completed [facility] 00:00:00 [facility] HIB 3 Dose Schedule 2001-03-04 Completed [facility] of 00:00:00 [facility] Hep B, Adol or Pedi 2001-03-04 Completed [facility] of Dosage 00:00:00 [facility] Polio (IPV/OPV) 2001-03-04 Completed [facility] 00:00:00 [facility] DTAP 2001-03-04 Completed [facility] 00:00:00 [facility] HIB 3 Dose Schedule 2001-03-04 Completed [facility] of 00:00:00 [facility] Hep B, Adol or Pedi 2001-03-04 Completed [facility] of Dosage 00:00:00 [facility] Polio (IPV/OPV) 2001-03-04 Completed [facility] 00:00:00 [facility] DTAP 2001-03-04 Completed [facility] 00:00:00 [facility] HIB 3 Dose Schedule 2001-03-04 Completed [facility] rsity of 00:00:00 [facility] Hep B, Adol or Pedi 2001-03-04 Completed [facility]ive rs[facility] of Dosage 00:00:00 [facility] Polio (IPV/OPV) 2001-03-04 Completed [facility] 00:00:00 [facility] DTAP 2001-03-04 Completed [facility] 00:00:00 [facility] HIB 3 Dose Schedule 2001-03-04 Completed [facility]ive rsity of 00:00:00 [facility] Hep B, Adol or Pedi 2001-03-04 Completed [facility]ive rsity of Dosage 00:00:00 [facility] Polio (IPV/OPV) 2001-03-04 Completed [facility] 00:00:00 [facility] DTAP 2001-03-04 Completed [facility] 00:00:00 [facility] HIB 3 Dose Schedule 2001-03-04 Completed [facility] rsity of 00:00:00 [facility] Hep B, Adol or Pedi 2001-03-04 Completed [facility] of Dosage 00:00:00 [facility] Polio (IPV/OPV) 2001-03-04 Completed [facility] 00:00:00 [facility] DTAP 2001-03-04 Completed [facility] 00:00:00 [facility] HIB 3 Dose Schedule 2001-03-04 Completed [facility] of 00:00:00 [facility] Hep B, Adol or Pedi 2001-03-04 Completed [facility] of Dosage 00:00:00 [facility] Polio (IPV/OPV) 2001-03-04 Completed [facility] 00:00:00 [facility] DTAP 2001-03-04 Completed [facility] 00:00:00 [facility] HIB 3 Dose Schedule 2001-03-04 Completed [facility] of 00:00:00 [facility] Hep B, Adol or Pedi 2001-03-04 Completed [facility] of Dosage 00:00:00 [facility] Polio (IPV/OPV) 2001-03-04 Completed [facility] 00:00:00 [facility] DTAP 2001-03-04 Completed [facility] 00:00:00 [facility] HIB 3 Dose Schedule 2001-03-04 Completed [facility] of 00:00:00 [facility] Hep B, Adol or Pedi 2001-03-04 Completed [facility] of Dosage 00:00:00 [facility] Polio (IPV/OPV) 2001-03-04 Completed [facility] 00:00:00 [facility] DTAP 2001-03-04 Completed [facility] 00:00:00 [facility] HIB 3 Dose Schedule 2001-03-04 Completed [facility] of 00:00:00 [facility] Hep B, Adol or Pedi 2001-03-04 Completed [facility] of Dosage 00:00:00 [facility] Polio (IPV/OPV) 2001-03-04 Completed [facility] 00:00:00 [facility] DTAP 2001-03-04 Completed [facility] 00:00:00 [facility] HIB 3 Dose Schedule 2001-03-04 Completed [facility] of 00:00:00 [facility] Hep B, Adol or Pedi 2001-03-04 Completed [facility] of Dosage 00:00:00 [facility] Polio (IPV/OPV) 2001-03-04 Completed [facility] 00:00:00 [facility] DTAP 2001-03-04 Completed [facility] 00:00:00 [facility] HIB 3 Dose Schedule 2001-03-04 Completed [facility] of 00:00:00 [facility] Hep B, Adol or Pedi 2001-03-04 Completed [facility] of Dosage 00:00:00 [facility] Polio (IPV/OPV) 2001-03-04 Completed [facility] 00:00:00 [facility] DTAP 2001-03-04 Completed [facility] 00:00:00 [facility] HIB 3 Dose Schedule 2001-03-04 Completed [facility] rsity of 00:00:00 [facility] Hep B, Adol or Pedi 2001-03-04 Completed [facility] of Dosage 00:00:00 [facility] Polio (IPV/OPV) 2001-03-04 Completed [facility] 00:00:00 [facility] DTAP 2001-03-04 Completed [facility] 00:00:00 [facility] HIB 3 Dose Schedule 2001-03-04 Completed [facility] of 00:00:00 [facility] Hep B, Adol or Pedi 2001-03-04 Completed [facility] of Dosage 00:00:00 [facility] Polio (IPV/OPV) 2001-03-04 Completed [facility] 00:00:00 [facility] DTAP 2001-03-04 Completed [facility] 00:00:00 [facility] HIB 3 Dose Schedule 2001-03-04 Completed [facility] rs[facility] of 00:00:00 [facility] Hep B, Adol or Pedi 2001-03-04 Completed [facility] of Dosage 00:00:00 [facility] Polio (IPV/OPV) 2001-03-04 Completed [facility] 00:00:00 [facility] DTAP 2001-03-04 Completed [facility] 00:00:00 [facility] HIB 3 Dose Schedule 2001-03-04 Completed [facility] of 00:00:00 [facility] Hep B, Adol or Pedi 2001-03-04 Completed [facility] of Dosage 00:00:00 [facility] Polio (IPV/OPV) 2001-03-04 Completed [facility] 00:00:00 [facility] DTAP 2001-03-04 Completed [facility] 00:00:00 [facility] HIB 3 Dose Schedule 2001-03-04 Completed [facility]ive rs[facility] of 00:00:00 [facility] Hep B, Adol or Pedi 2001-03-04 Completed [facility] of Dosage 00:00:00 [facility] Polio (IPV/OPV) 2001-03-04 Completed [facility] 00:00:00 [facility] DTAP 2001-03-04 Completed [facility] 00:00:00 [facility] HIB 3 Dose Schedule 2001-03-04 Completed [facility] of 00:00:00 [facility] Hep B, Adol or Pedi 2001-03-04 Completed [facility] of Dosage 00:00:00 [facility] Polio (IPV/OPV) 2001-03-04 Completed [facility] 00:00:00 [facility] DTAP 2001-03-04 Completed [facility] 00:00:00 [facility] HIB 3 Dose Schedule 2001-03-04 Completed [facility] rsity of 00:00:00 [facility] Hep B, Adol or Pedi 2001-03-04 Completed [facility]ive rs[facility] of Dosage 00:00:00 [facility] Polio (IPV/OPV) 2001-03-04 Completed [facility] 00:00:00 [facility] DTAP 2001-03-04 Completed [facility] 00:00:00 [facility] HIB 3 Dose Schedule 2001-03-04 Completed [facility] 00:00:00 [facility] Hep B, Adol or Pedi 2001-03-04 Completed [facility] of Dosage 00:00:00 [facility] Polio (IPV/OPV) 2001-03-04 Completed [facility] 00:00:00 [facility] DTAP 2001-03-04 Completed [facility] 00:00:00 [facility] HIB 3 Dose Schedule 2001-03-04 Completed [facility] of 00:00:00 [facility] Hep B, Adol or Pedi 2001-03-04 Completed [facility] of Dosage 00:00:00 [facility] Polio (IPV/OPV) 2001-03-04 Completed [facility] 00:00:00 [facility] DTAP 2001-03-04 Completed [facility] 00:00:00 [facility] HIB 3 Dose Schedule 2001-03-04 Completed [facility] of 00:00:00 [facility] Hep B, Adol or Pedi 2001-03-04 Completed [facility] of Dosage 00:00:00 [facility] Polio (IPV/OPV) 2001-03-04 Completed [facility] 00:00:00 [facility] DTAP 2001-03-04 Completed [facility] 00:00:00 [facility] HIB 3 Dose Schedule 2001-03-04 Completed [facility] of 00:00:00 [facility] Hep B, Adol or Pedi 2001-03-04 Completed [facility] of Dosage 00:00:00 [facility] Polio (IPV/OPV) 2001-03-04 Completed [facility] 00:00:00 [facility] DTAP 2001-03-04 Completed [facility] 00:00:00 [facility] HIB 3 Dose Schedule 2001-03-04 Completed [facility] 00:00:00 [facility] Hep B, Adol or Pedi 2001-03-04 Completed [facility] of Dosage 00:00:00 [facility] Polio (IPV/OPV) 2001-03-04 Completed [facility] 00:00:00 [facility] DTAP 2001-03-04 Completed [facility] 00:00:00 [facility] HIB 3 Dose Schedule 2001-03-04 Completed [facility] of 00:00:00 [facility] Hep B, Adol or Pedi 2001-03-04 Completed [facility] of Dosage 00:00:00 [facility] Polio (IPV/OPV) 2001-03-04 Completed [facility] 00:00:00 [facility] Hep B, Adol or Pedi 2000-03-05 Completed [facility] of Dosage 00:00:00 [facility] Polio (IPV/OPV) 2000-03-05 Completed [facility] 00:00:00 [facility] DTAP 2000-03-05 Completed [facility] 00:00:00 [facility] HIB 3 Dose Schedule 2000-03-05 Completed [facility] 00:00:00 [facility] Hep B, Adol or Pedi 2000-03-05 Completed [facility] of Dosage 00:00:00 [facility] Polio (IPV/OPV) 2000-03-05 Completed [facility] 00:00:00 [facility] DTAP 2000-03-05 Completed [facility] 00:00:00 [facility] HIB 3 Dose Schedule 2000-03-05 Completed [facility] 00:00:00 [facility] Hep B, Adol or Pedi 2000-03-05 Completed [facility] of Dosage 00:00:00 [facility] Polio (IPV/OPV) 2000-03-05 Completed [facility] 00:00:00 [facility] DTAP 2000-03-05 Completed [facility] 00:00:00 [facility] HIB 3 Dose Schedule 2000-03-05 Completed [facility] 00:00:00 [facility] Hep B, Adol or Pedi 2000-03-05 Completed [facility] of Dosage 00:00:00 [facility] Polio (IPV/OPV) 2000-03-05 Completed [facility] 00:00:00 [facility] DTAP 2000-03-05 Completed [facility] 00:00:00 [facility] HIB 3 Dose Schedule 2000-03-05 Completed [facility] 00:00:00 [facility] Hep B, Adol or Pedi 2000-03-05 Completed [facility] of Dosage 00:00:00 [facility] Polio (IPV/OPV) 2000-03-05 Completed [facility] 00:00:00 [facility] DTAP 2000-03-05 Completed [facility] 00:00:00 [facility] HIB 3 Dose Schedule 2000-03-05 Completed [facility] 00:00:00 [facility] Hep B, Adol or Pedi 2000-03-05 Completed [facility] of Dosage 00:00:00 [facility] Polio (IPV/OPV) 2000-03-05 Completed [facility] 00:00:00 [facility] DTAP 2000-03-05 Completed [facility] 00:00:00 [facility] HIB 3 Dose Schedule 2000-03-05 Completed [facility] 00:00:00 [facility] Hep B, Adol or Pedi 2000-03-05 Completed [facility] of Dosage 00:00:00 [facility] Polio (IPV/OPV) 2000-03-05 Completed [facility] 00:00:00 [facility] DTAP 2000-03-05 Completed [facility] 00:00:00 [facility] HIB 3 Dose Schedule 2000-03-05 Completed [facility] 00:00:00 [facility] Hep B, Adol or Pedi 2000-03-05 Completed [facility] of Dosage 00:00:00 [facility] Polio (IPV/OPV) 2000-03-05 Completed [facility] 00:00:00 [facility] DTAP 2000-03-05 Completed [facility] 00:00:00 [facility] HIB 3 Dose Schedule 2000-03-05 Completed [facility] 00:00:00 [facility] Hep B, Adol or Pedi 2000-03-05 Completed [facility] Dosage 00:00:00 [facility] Polio (IPV/OPV) 2000-03-05 Completed [facility] 00:00:00 [facility] DTAP 2000-03-05 Completed [facility] 00:00:00 [facility] HIB 3 Dose Schedule 2000-03-05 Completed [facility] 00:00:00 [facility] Hep B, Adol or Pedi 2000-03-05 Completed [facility] of Dosage 00:00:00 [facility] Polio (IPV/OPV) 2000-03-05 Completed [facility] 00:00:00 [facility] DTAP 2000-03-05 Completed [facility] 00:00:00 [facility] HIB 3 Dose Schedule 2000-03-05 Completed [facility] 00:00:00 [facility] Hep B, Adol or Pedi 2000-03-05 Completed [facility] Dosage 00:00:00 [facility] Polio (IPV/OPV) 2000-03-05 Completed [facility] 00:00:00 [facility] DTAP 2000-03-05 Completed [facility] 00:00:00 [facility] HIB 3 Dose Schedule 2000-03-05 Completed [facility] 00:00:00 [facility] Hep B, Adol or Pedi 2000-03-05 Completed [facility] Dosage 00:00:00 [facility] Polio (IPV/OPV) 2000-03-05 Completed [facility] 00:00:00 [facility] DTAP 2000-03-05 Completed [facility] 00:00:00 [facility] HIB 3 Dose Schedule 2000-03-05 Completed [facility] 00:00:00 [facility] Hep B, Adol or Pedi 2000-03-05 Completed [facility] of Dosage 00:00:00 [facility] Polio (IPV/OPV) 2000-03-05 Completed [facility] 00:00:00 [facility] DTAP 2000-03-05 Completed [facility] 00:00:00 [facility] HIB 3 Dose Schedule 2000-03-05 Completed [facility] 00:00:00 [facility] Hep B, Adol or Pedi 2000-03-05 Completed [facility] of Dosage 00:00:00 [facility] Polio (IPV/OPV) 2000-03-05 Completed [facility] 00:00:00 [facility] DTAP 2000-03-05 Completed [facility] 00:00:00 [facility] HIB 3 Dose Schedule 2000-03-05 Completed [facility] 00:00:00 [facility] Hep B, Adol or Pedi 2000-03-05 Completed [facility] Dosage 00:00:00 [facility] Polio (IPV/OPV) 2000-03-05 Completed [facility] 00:00:00 [facility] DTAP 2000-03-05 Completed [facility] 00:00:00 [facility] HIB 3 Dose Schedule 2000-03-05 Completed [facility] 00:00:00 [facility] Hep B, Adol or Pedi 2000-03-05 Completed [facility] of Dosage 00:00:00 [facility] Polio (IPV/OPV) 2000-03-05 Completed [facility] 00:00:00 [facility] DTAP 2000-03-05 Completed [facility] 00:00:00 [facility] HIB 3 Dose Schedule 2000-03-05 Completed [facility] 00:00:00 [facility] Hep B, Adol or Pedi 2000-03-05 Completed [facility] of Dosage 00:00:00 [facility] Polio (IPV/OPV) 2000-03-05 Completed [facility] 00:00:00 [facility] DTAP 2000-03-05 Completed [facility] 00:00:00 [facility] HIB 3 Dose Schedule 2000-03-05 Completed [facility] 00:00:00 [facility] Hep B, Adol or Pedi 2000-03-05 Completed [facility] Dosage 00:00:00 [facility] Polio (IPV/OPV) 2000-03-05 Completed [facility] 00:00:00 [facility] DTAP 2000-03-05 Completed [facility] 00:00:00 [facility] HIB 3 Dose Schedule 2000-03-05 Completed [facility] 00:00:00 [facility] Hep B, Adol or Pedi 2000-03-05 Completed [facility] of Dosage 00:00:00 [facility] Polio (IPV/OPV) 2000-03-05 Completed [facility] 00:00:00 [facility] DTAP 2000-03-05 Completed [facility] 00:00:00 [facility] HIB 3 Dose Schedule 2000-03-05 Completed [facility] 00:00:00 [facility] Hep B, Adol or Pedi 2000-03-05 Completed [facility] Dosage 00:00:00 [facility] Polio (IPV/OPV) 2000-03-05 Completed [facility] 00:00:00 [facility] DTAP 2000-03-05 Completed [facility] 00:00:00 [facility] HIB 3 Dose Schedule 2000-03-05 Completed [facility] 00:00:00 [facility] Hep B, Adol or Pedi 2000-03-05 Completed [facility] of Dosage 00:00:00 [facility] Polio (IPV/OPV) 2000-03-05 Completed [facility] 00:00:00 [facility] DTAP 2000-03-05 Completed [facility] 00:00:00 [facility] HIB 3 Dose Schedule 2000-03-05 Completed [facility] 00:00:00 [facility] Hep B, Adol or Pedi 2000-03-05 Completed [facility] Dosage 00:00:00 [facility] Polio (IPV/OPV) 2000-03-05 Completed [facility] 00:00:00 [facility] DTAP 2000-03-05 Completed [facility] 00:00:00 [facility] HIB 3 Dose Schedule 2000-03-05 Completed [facility] 00:00:00 [facility] Hep B, Adol or Pedi 2000-03-05 Completed [facility] Dosage 00:00:00 [facility] Polio (IPV/OPV) 2000-03-05 Completed [facility] 00:00:00 [facility] DTAP 2000-03-05 Completed [facility] 00:00:00 [facility] HIB 3 Dose Schedule 2000-03-05 Completed [facility] 00:00:00 [facility] Hep B, Adol or Pedi 2000-03-05 Completed [facility] Dosage 00:00:00 [facility] Polio (IPV/OPV) 2000-03-05 Completed [facility] 00:00:00 [facility] DTAP 2000-03-05 Completed [facility] 00:00:00 [facility] HIB 3 Dose Schedule 2000-03-05 Completed [facility] 00:00:00 [facility] Hep B, Adol or Pedi 2000-03-05 Completed [facility] Dosage 00:00:00 [facility] Polio (IPV/OPV) 2000-03-05 Completed [facility] 00:00:00 [facility] DTAP 2000-03-05 Completed [facility] 00:00:00 [facility] HIB 3 Dose Schedule 2000-03-05 Completed [facility] 00:00:00 [facility] Hep B, Adol or Pedi 2000-03-05 Completed [facility] Dosage 00:00:00 [facility] Polio (IPV/OPV) 2000-03-05 Completed [facility] 00:00:00 [facility] DTAP 2000-03-05 Completed [facility] 00:00:00 [facility] HIB 3 Dose Schedule 2000-03-05 Completed [facility] 00:00:00 [facility] Hep B, Adol or Pedi 2000-03-05 Completed [facility] Dosage 00:00:00 [facility] Polio (IPV/OPV) 2000-03-05 Completed [facility] 00:00:00 [facility] DTAP 2000-03-05 Completed [facility] 00:00:00 [facility] HIB 3 Dose Schedule 2000-03-05 Completed Unive rsity of 00:00:00 [facility] DTAP 1999 Completed [facility] 00:00:00 [facility] HIB 3 Dose Schedule 1999 Completed Unive rsity of 00:00:00 [facility] Hep B, Adol or Pedi 1999 Completed Unive rsity of Dosage 00:00:00 [facility] Polio (IPV/OPV) 1999 Completed [facility]it y [facility] 00:00:00 [facility] DTAP 1999 Completed [facility] 00:00:00 [facility] HIB 3 Dose Schedule 1999 Completed Unive rsity of 00:00:00 [facility] Hep B, Adol or Pedi 1999 Completed Unive rsity of Dosage 00:00:00 [facility] Polio (IPV/OPV) 1999 Completed [facility] 00:00:00 [facility] DTAP 1999 Completed [facility] 00:00:00 [facility] HIB 3 Dose Schedule 1999 Completed Unive rsity of 00:00:00 [facility] Hep B, Adol or Pedi 1999 Completed Unive rsity of Dosage 00:00:00 [facility] Polio (IPV/OPV) 1999 Completed [facility] 00:00:00 [facility] DTAP 1999 Completed [facility] 00:00:00 [facility] HIB 3 Dose Schedule 1999 Completed Unive rsity of 00:00:00 [facility] Hep B, Adol or Pedi 1999 Completed Unive rsity of Dosage 00:00:00 [facility] Polio (IPV/OPV) 1999 Completed [facility] 00:00:00 [facility] DTAP 1999 Completed [facility] 00:00:00 [facility] HIB 3 Dose Schedule 1999 Completed Unive rsity of 00:00:00 [facility] Hep B, Adol or Pedi 1999 Completed Unive rsity of Dosage 00:00:00 [facility] Polio (IPV/OPV) 1999 Completed [facility] 00:00:00 [facility] DTAP 1999 Completed [facility] 00:00:00 [facility] HIB 3 Dose Schedule 1999 Completed Unive rsity of 00:00:00 [facility] Hep B, Adol or Pedi 1999 Completed Unive rsity of Dosage 00:00:00 [facility] Polio (IPV/OPV) 1999 Completed [facility] 00:00:00 [facility] DTAP 1999 Completed [facility] 00:00:00 [facility] HIB 3 Dose Schedule 1999 Completed Unive rsity of 00:00:00 [facility] Hep B, Adol or Pedi 1999 Completed Unive rsity of Dosage 00:00:00 [facility] Polio (IPV/OPV) 1999 Completed [facility] 00:00:00 [facility] DTAP 1999 Completed [facility] 00:00:00 [facility] HIB 3 Dose Schedule 1999 Completed Unive rsity of 00:00:00 [facility] Hep B, Adol or Pedi 1999 Completed Unive rsity of Dosage 00:00:00 [facility] Polio (IPV/OPV) 1999 Completed [facility] 00:00:00 [facility] DTAP 1999 Completed [facility] 00:00:00 [facility] HIB 3 Dose Schedule 1999 Completed Unive rsity of 00:00:00 [facility] Hep B, Adol or Pedi 1999 Completed Unive rsity of Dosage 00:00:00 [facility] Polio (IPV/OPV) 1999 Completed [facility] 00:00:00 [facility] DTAP 1999 Completed [facility] 00:00:00 [facility] HIB 3 Dose Schedule 1999 Completed [facility]ive rsity of 00:00:00 [facility] Hep B, Adol or Pedi 1999 Completed Unive rsity of Dosage 00:00:00 [facility] Polio (IPV/OPV) 1999 Completed [facility] 00:00:00 [facility] DTAP 1999 Completed [facility] 00:00:00 [facility] HIB 3 Dose Schedule 1999 Completed Unive rsity of 00:00:00 [facility] Hep B, Adol or Pedi 1999 Completed Unive rsity of Dosage 00:00:00 [facility] Polio (IPV/OPV) 1999 Completed [facility] 00:00:00 [facility] DTAP 1999 Completed [facility] 00:00:00 [facility] HIB 3 Dose Schedule 1999 Completed Unive rsity of 00:00:00 [facility] Hep B, Adol or Pedi 1999 Completed Unive rsity of Dosage 00:00:00 [facility] Polio (IPV/OPV) 1999 Completed [facility] 00:00:00 [facility] DTAP 1999 Completed [facility] 00:00:00 [facility] HIB 3 Dose Schedule 1999 Completed [facility]ive rsity of 00:00:00 [facility] Hep B, Adol or Pedi 1999 Completed Unive rsity of Dosage 00:00:00 [facility] Polio (IPV/OPV) 1999 Completed [facility] 00:00:00 [facility] DTAP 1999 Completed [facility] 00:00:00 [facility] HIB 3 Dose Schedule 1999 Completed Unive rsity of 00:00:00 [facility] Hep B, Adol or Pedi 1999 Completed Unive rsity of Dosage 00:00:00 [facility] Polio (IPV/OPV) 1999 Completed [facility] 00:00:00 [facility] DTAP 1999 Completed [facility] 00:00:00 [facility] HIB 3 Dose Schedule 1999 Completed [facility]ive rsity of 00:00:00 [facility] Hep B, Adol or Pedi 1999 Completed [facility]ive rsity of Dosage 00:00:00 [facility] Polio (IPV/OPV) 1999 Completed [facility] 00:00:00 [facility] DTAP 1999 Completed [facility] 00:00:00 [facility] HIB 3 Dose Schedule 1999 Completed [facility]ive rsity of 00:00:00 [facility] Hep B, Adol or Pedi 1999 Completed Unive rsity of Dosage 00:00:00 [facility] Polio (IPV/OPV) 1999 Completed [facility] 00:00:00 [facility] DTAP 1999 Completed [facility] 00:00:00 [facility] HIB 3 Dose Schedule 1999 Completed Unive rsity of 00:00:00 [facility] Hep B, Adol or Pedi 1999 Completed Unive rsity of Dosage 00:00:00 [facility] Polio (IPV/OPV) 1999 Completed [facility] 00:00:00 [facility] DTAP 1999 Completed [facility] 00:00:00 [facility] HIB 3 Dose Schedule 1999 Completed [facility]ive rsity of 00:00:00 [facility] Hep B, Adol or Pedi 1999 Completed [facility]ive rsity of Dosage 00:00:00 [facility] Polio (IPV/OPV) 1999 Completed [facility] 00:00:00 [facility] DTAP 1999 Completed [facility] 00:00:00 [facility] HIB 3 Dose Schedule 1999 Completed Unive rsity of 00:00:00 [facility] Hep B, Adol or Pedi 1999 Completed Unive rsity of Dosage 00:00:00 [facility] Polio (IPV/OPV) 1999 Completed [facility] 00:00:00 [facility] DTAP 1999 Completed [facility] 00:00:00 [facility] HIB 3 Dose Schedule 1999 Completed Unive rsity of 00:00:00 [facility] Hep B, Adol or Pedi 1999 Completed Unive rsity of Dosage 00:00:00 [facility] Polio (IPV/OPV) 1999 Completed [facility] 00:00:00 [facility] DTAP 1999 Completed [facility] 00:00:00 [facility] HIB 3 Dose Schedule 1999 Completed [facility]ive rsity of 00:00:00 [facility] Hep B, Adol or Pedi 1999 Completed Unive rsity of Dosage 00:00:00 [facility] Polio (IPV/OPV) 1999 Completed [facility] 00:00:00 [facility] DTAP 1999 Completed [facility] 00:00:00 [facility] HIB 3 Dose Schedule 1999 Completed Unive rsity of 00:00:00 [facility] Hep B, Adol or Pedi 1999 Completed [facility]ive [facility]ity of Dosage 00:00:00 [facility] Polio (IPV/OPV) 1999 Completed [facility] 00:00:00 [facility] DTAP 1999 Completed [facility] 00:00:00 [facility] HIB 3 Dose Schedule 1999 Completed Unive rsity of 00:00:00 [facility] Hep B, Adol or Pedi 1999 Completed Unive rsity of Dosage 00:00:00 [facility] Polio (IPV/OPV) 1999 Completed [facility] 00:00:00 [facility] DTAP 1999 Completed [facility] 00:00:00 [facility] HIB 3 Dose Schedule 1999 Completed Unive rsity of 00:00:00 [facility] Hep B, Adol or Pedi 1999 Completed Unive rsity of Dosage 00:00:00 [facility] Polio (IPV/OPV) 1999 Completed [facility] 00:00:00 [facility] DTAP 1999 Completed [facility] 00:00:00 [facility] HIB 3 Dose Schedule 1999 Completed Unive rsity of 00:00:00 [facility] Hep B, Adol or Pedi 1999 Completed Unive rsity of Dosage 00:00:00 [facility] Polio (IPV/OPV) 1999 Completed [facility] 00:00:00 [facility] DTAP 1999 Completed [facility] 00:00:00 [facility] HIB 3 Dose Schedule 1999 Completed Unive [facility]ity [facility] 00:00:00 [facility] Hep B, Adol or Pedi 1999 Completed Unive rsity of Dosage 00:00:00 [facility] Polio (IPV/OPV) 1999 Completed [facility] 00:00:00 [facility] DTAP 1999 Completed [facility] 00:00:00 [facility] HIB 3 Dose Schedule 1999 Completed Unive rsity of 00:00:00 [facility] Hep B, Adol or Pedi 1999 Completed Unive rsity of Dosage 00:00:00 [facility] Polio (IPV/OPV) 1999 Completed [facility] 00:00:00 [facility] HPV9 Unknown Completed [facility] HPV Unknown Completed [facility] DTAP Unknown Completed [facility] DTAP Unknown Completed [facility] DTAP Unknown Completed [facility] DTAP Unknown Completed [facility] HIB 3 Dose Schedule Unknown Completed Unive rsity of [facility] HIB 3 Dose Schedule Unknown Completed Unive rsity of [facility] HIB 3 Dose Schedule Unknown Completed Unive rsity of [facility] HEPATITIS A Unknown Completed [facility] Hep B, Adol or Pedi Unknown Completed Unive rsity of Dosage [facility] Hep B, Adol or Pedi Unknown Completed Unive rsity of Dosage [facility] Hep B, Adol or Pedi Unknown Completed Unive rsity of Dosage [facility] Meningococcal Unknown Completed [facility] Meningococcal Unknown Completed [facility] MMR Unknown Completed [facility] MMR Unknown Completed [facility] Pneumococcal 13 Unknown Completed Universit y of Conjugate, PCV13 [facility] dicnh (Prevnar 13) Branch Polio (IPV/OPV) Unknown Completed Universit y [facility] Polio (IPV/OPV) Unknown Completed [facility] Polio (IPV/OPV) Unknown Completed [facility] Polio (IPV/OPV) Unknown Completed [facility] TDAP Unknown Completed [facility] Varicella Unknown Completed [facility] (varivax[facility] [place] [facility] pox[facility] Varicella Unknown Completed [facility] (var[facility]ax[facility] [place] [facility] p[facility] HPV9 Unknown Completed [facility] HPV Unknown Completed [facility] DTAP Unknown Completed [facility] DTAP Unknown Completed [facility] DTAP Unknown Completed [facility] DTAP Unknown Completed [facility] HIB 3 Dose Schedule Unknown [facility] D[facility] D[facility] A Unknown Completed [facility] Hep B, Adol or Pedi Unknown Completed [facility]ive [facility] Hep B, Adol or Pedi Unknown Completed Unive rs[facility] of [facility] Hep B, Adol or Pedi Unknown Completed Unive rs[facility] of [facility] Meningococcal Unknown Completed [facility] Meningococcal Unknown Completed [facility] MMR Unknown Completed [facility] MMR Unknown Completed [facility] Pneumococcal 13 Unknown Completed Universit y Conjugate, PCV13 [facility] (Prevnar 13) Branch Polio (IPV/OPV) Unknown Completed [facility] y [facility] Polio (IPV/OPV) Unknown Completed [facility] Polio (IPV/OPV) Unknown Completed [facility] Polio (IPV/OPV) Unknown Completed [facility] TDAP Unknown Completed [facility] Varicella Unknown Completed [facility] (varivax[facility] [place] [facility] pox) [facility] Varicella Unknown Completed [facility] (varivax[facility] [place] [facility] pox) [facility] HPV9 Unknown Completed [facility] HPV Unknown Completed [facility] DTAP Unknown Completed [facility] DTAP Unknown Completed [facility] DTAP Unknown Completed [facility] DTAP Unknown Completed [facility] HIB 3 Dose Schedule Unknown [facility] Dose [facility] Unknown [facility] Dose Schedule Unknown [facility]IS A Unknown Completed [facility] Hep B, Adol or Pedi Unknown Completed Unive [facility] of [facility] Hep B, Adol or Pedi Unknown Completed Unive rs[facility] of [facility] Hep B, Adol or Pedi Unknown Completed Unive rsity of [facility] Meningococcal Unknown Completed [facility] Meningococcal Unknown Completed [facility] MMR Unknown Completed [facility] MMR Unknown Completed [facility] Pneumococcal 13 Unknown Completed Universit y of Conjugate, PCV13 [facility] dical (Prevnar 13) Branch Polio (IPV/OPV) Unknown Completed [facility] Polio (IPV/OPV) Unknown Completed [facility] Polio (IPV/OPV) Unknown Completed [facility] Polio (IPV/OPV) Unknown Completed [facility] TDAP Unknown Completed [facility] Varicella Unknown Completed [facility] (varivax[facility] [place] [facility] pox[facility] Varicella Unknown Completed [facility] (varivax[facility] [place] [facility] pox[facility] HPV9 Unknown Completed [facility] HPV Unknown Completed [facility] DTAP Unknown Completed [facility] DTAP Unknown Completed [facility] DTAP Unknown Completed [facility] DTAP Unknown Completed [facility] HIB 3 Dose Schedule Unknown Completed [facility] HIB 3 Dose Schedule Unknown [facility] 3 Dose Schedule Unknown Completed [facility] HEPATITIS A Unknown Completed [facility] Hep B, Adol or Pedi Unknown Completed Unive rsity of [facility] Hep B, Adol or Pedi Unknown Completed Unive rsity [facility] Hep B, Adol [facility] Pedi [facility] Meningococcal Unknown Completed [facility] MMR Unknown Completed [facility] MMR Unknown Completed [facility] Pneumococcal 13 Unknown Completed Universit y of Conjugate, PCV13 [facility] dical (Prevnar 13) Branch Polio (IPV/OPV) Unknown Completed [facility] Polio (IPV/OPV) Unknown Completed [facility] Polio (IPV/OPV) Unknown Completed [facility] Polio (IPV/OPV) Unknown Completed [facility] TDAP Unknown Completed [facility] Varicella Unknown Completed [facility] (varivax[facility] [place] [facility] pox) [facility] Varicella Unknown Completed [facility] (varivax[facility] [place] [facility] pox[facility] HPV9 Unknown Completed [facility] HPV Unknown Completed [facility] DTAP Unknown Completed [facility] DTAP Unknown Completed [facility] DTAP Unknown Completed [facility] DTAP Unknown Completed [facility] HIB 3 Dose Schedule Unknown Completed [facility] HIB 3 Dose Schedule Unknown Completed [facility] HIB 3 Dose Schedule Unknown Completed [facility] HEPATITIS A Unknown Completed [facility] Hep B, Adol or Pedi Unknown Completed Unive rsity of [facility] Hep B, Adol or Pedi Unknown Completed Unive rsity of [facility] Hep B, Adol or Pedi Unknown Completed Unive rsity of [facility] Meningococcal Unknown Completed [facility] Meningococcal Unknown Completed [facility] MMR Unknown Completed [facility] MMR Unknown Completed [facility] Pneumococcal 13 Unknown Completed [facility] Conjugate, PCV13 [facility] dicnh (Prevnar 13) [place] Polio (IPV/OPV) Unknown Completed [facility] Polio (IPV/OPV) Unknown Completed [facility] Polio (IPV/OPV) Unknown Completed [facility] Polio (IPV/OPV) Unknown Completed [facility] TDAP Unknown Completed [facility] Varicella Unknown Completed [facility] (varivax[facility] [place] [facility] pox) [place] Varicella Unknown Completed [facility] (varivax)([facility] [place] [facility] pox) [place] Vital Signs Vital Name Observation Time Observation Value Comments Source Systolic blood 2023-01-21 04:29:00 144 mm[Hg] Univer [facility] pressure [facility] Diastolic blood 2023-01-21 04:29:00 98 mm[facility]Hg[facility] 2023-01-21 04:29:00 90 /min [facility] Body temperature 2023-01-21 04:29:00 37 Radha [facility] Respiratory rate 2023-01-21 04:29:00 18 /min [facility] Body height 2023-01-21 04:29:00 162.6 cm [facility] Body weight 2023-01-21 04:29:00 96.026 kg [facility] BMI 2023-01-21 04:29:00 36.34 kg/m2 [facility] Oxygen saturation in 2023-01-21 04:29:00 100 /min [facility] Arterial blood by [facility] Oxygen saturation in 2022-11-27 03:20:00 100 /min [facility] Arterial blood by [facility] walter Pulse oximetry Branch Systolic blood 2022-11-27 03:20:00 139 mm[Hg] Univer sity of pressure [facility] Diastolic blood 2022-11-27 03:20:00 92 mm[Hg] Unive rsity of pressure [facility] Heart rate 2022-11-27 03:20:00 80 /min [facility] Body temperature 2022-11-27 03:20:00 36.28 Radha [facility] Respiratory rate 2022-11-27 03:20:00 15 /min [facility] Body height 2022-11-27 03:20:00 162.6 cm [facility] Body weight 2022-11-27 03:20:00 96.163 kg [facility] BMI 2022-11-27 03:20:00 36.39 kg/m2 [facility] Heart rate 2022-07-02 16:04:00 87 /min [facility] Body temperature 2022-07-02 16:04:00 36.89 Radha [facility] Respiratory rate 2022-07-02 16:04:00 22 /min [facility] Body height 2022-07-02 16:04:00 165.1 cm [facility] Body weight 2022-07-02 16:04:00 101.833 kg [facility] BMI 2022-07-02 16:04:00 37.36 kg/m2 [facility] Oxygen saturation in 2022-07-02 16:04:00 99 /min [facility] Arterial blood by [facility] Pulse oximetry Branch Systolic blood 2021-09-13 07:00:00 121 mm[Hg] Univer sity of pressure [facility] Diastolic blood 2021-09-13 07:00:00 84 mm[Hg] Unive rsity of pressure [facility] Heart rate 2021-09-13 07:00:00 98 /min [facility] Respiratory rate 2021-09-13 07:00:00 20 /min [facility] Oxygen saturation in 2021-09-13 07:00:00 98 /min [facility] Arterial blood by [facility] Pulse oximetry Branch Body temperature 2021-09-13 05:34:00 37.61 Radha [facility] Body height 2021-09-13 05:34:00 162.6 cm [facility] Body weight 2021-09-13 05:34:00 111.131 kg [facility] BMI 2021-09-13 05:34:00 42.05 kg/m2 [facility] Systolic blood 2020-12-31 20:48:00 127 mm[Hg] Univer sity of pressure [facility] Diastolic blood 2020-12-31 20:48:00 96 mm[Hg] Unive rsity of pressure [facility] Heart rate 2020-12-31 20:48:00 83 /min [facility] Body temperature 2020-12-31 20:48:00 36.83 Radha [facility] Respiratory rate 2020-12-31 20:48:00 18 /min [facility] Body weight 2020-12-31 20:48:00 110.678 kg [facility] BMI 2020-12-31 20:48:00 41.88 kg/m2 [facility] Oxygen saturation in 2020-12-31 20:48:00 100 /min [facility] Arterial blood by [facility] walter Pulse oximetry Branch Systolic blood 2020-11-07 14:46:00 126 mm[Hg] Univer sity of pressure [facility] Diastolic blood 2020-11-07 14:46:00 76 mm[Hg] Unive rsity of pressure [facility] Heart rate 2020-11-07 14:46:00 92 /min [facility] Body temperature 2020-11-07 14:46:00 37 Radha [facility] Respiratory rate 2020-11-07 14:46:00 24 /min [facility] Body height 2020-11-07 14:46:00 162.6 cm [facility] Body weight 2020-11-07 14:46:00 113.581 kg [facility] BMI 2020-11-07 14:46:00 42.98 kg/m2 [facility] Systolic blood 2020-10-17 18:10:00 119 mm[Hg] [facility] Diastolic blood 2020-10-17 18:10:00 72 mm[Hg] [facility] Heart rate 2020-10-17 18:10:00 99 /min [facility] Body temperature 2020-10-17 18:10:00 36.89 Radha [facility] Respiratory rate 2020-10-17 18:10:00 16 /min [facility] [place] [facility] [place] Body height 2020-10-17 18:10:00 162.6 cm [facility] Body weight 2020-10-17 18:10:00 117.113 kg [facility] BMI 2020-10-17 18:10:00 44.32 kg/m2 [facility] Systolic blood 2020-08-09 06:00:00 136 mm[Hg] [facility] Diastolic blood 2020-08-09 06:00:00 75 mm[Hg] [facility] Heart rate 2020-08-09 06:00:00 93 /min [facility] Respiratory rate 2020-08-09 06:00:00 18 /min [facility] Oxygen saturation in 2020-08-09 06:00:00 92 /min University Arterial blood by [facility] Pulse oximetry Branch Body temperature 2020-08-09 05:00:00 37.44 Radha [facility] Body height 2020-08-09 05:00:00 162.6 cm [facility] Body weight 2020-08-09 05:00:00 114.306 kg [facility] BMI 2020-08-09 05:00:00 43.26 kg/m2 [facility] Systolic blood 2020-01-08 07:00:00 137 mm[Hg] [facility]iver [facility]ity [facility] Diastolic blood 2020-01-08 07:00:00 82 mm[Hg] Unive rsity of pressure [facility] Heart rate 2020-01-08 07:00:00 80 /min Universi ty of [facility] Body temperature 2020-01-08 07:00:00 36.89 Radha [facility] Respiratory rate 2020-01-08 07:00:00 11 /min [facility] Oxygen saturation in 2020-01-08 07:00:00 95 /min University of Arterial blood by [facility] Pulse oximetry Branch Body weight 2020-01-08 05:39:00 108.863 kg Universi ty of [facility] Systolic blood 2020-01-08 07:00:00 137 mm[Hg] Univer [facility]ity [facility] Diastolic blood 2020-01-08 07:00:00 82 mm[Hg] Unive rsity of pressure [facility] Heart rate 2020-01-08 07:00:00 80 /min Universi [facility] of [facility] Body temperature 2020-01-08 07:00:00 36.89 Radha [facility] Respiratory rate 2020-01-08 07:00:00 11 /min [facility] Oxygen saturation in 2020-01-08 07:00:00 95 /min University of Arterial blood by [facility] Pulse oximetry Branch Body weight 2020-01-08 05:39:00 108.863 kg Universi ty [facility] Procedures Procedure Date / Time Performed Performing Clinician Sour e URINALYSIS 2023-01-21 06:04:00 Corey Ledezma Emmett o f [facility] POCT TEST 2023-01-21 06:04:00 Coery Ledezma [facility] CONSENT/REFUSAL FOR 2023-01-21 04:16:58 Doctor Unassigned, No Un [facility] DIAGNOSIS AND Name Medical Branch TREATMENT POCT TEST 2022-11-27 05:32:00 Alvaro Herndon [facility] URINALYSIS 2022-11-27 05:31:00 Alvaro Herndon [place] o f [facility] LACTIC ACID WHOLE 2022-11-27 05:17:00 Alvaro Herndon [facility] BLOOD Medical Branch LIPASE 2022-11-27 05:16:00 Alvaro Herndon [facility] TEST, SERUM 2022-11-27 05:16:00 Alvaro Herndon [facility] COMP. METABOLIC PANEL 2022-11-27 05:16:00 Alvaro Herndon [facility] ([id number]) Medical [place] CBC WITH DIFF 2022-11-27 05:16:00 Alvaro Herndon [facility] ASSIGNMENT OF BENEFITS 2022-11-27 04:54:06 Doctor Unassigned, No [facility] Name Medical Branch CONSENT/REFUSAL FOR 2022-11-27 03:16:23 Doctor Unassigned, No [facility] [place] [facility] Name [facility] TREATMENT XR SPINE THORACIC 2 VW 2022-07-02 18:53:16 Prakash Allan [facility] XR ELBOW >3 VW LEFT 2022-07-02 18:53:16 Prakash Allan [facility] CONSENT/REFUSAL FOR 2022-07-02 15:56:23 Doctor Unassigned, No [facility] [place] [facility] AND Name Medical Branch TREATMENT CONSENT/REFUSAL FOR 2021-09-13 05:29:08 Doctor Unassigned, No [facility] [place] [facility] AND Name Medical Branch TREATMENT NOTICE OF PRIVACY 2021-09-13 05:28:35 [facility]igned, No [facility] [place] POCT TEST 2020-12-31 21:04:00 Alvaro Herndon [facility] URINALYSIS 2020-12-31 20:58:00 Alvaro Herndon [facility] CONSENT/REFUSAL FOR 2020-12-31 20:17:00 Doctor Unassigned, No [facility] [place] [facility] AND Name Medical Branch TREATMENT POCT TEST 2020-10-17 19:59:00 Felipa Briseno Uni [facility] GARDASIL 9 (HPV 9V) 2020-10-17 19:16:48 Felipa Briseno [facility] VACCINE [facility] CONSENT/REFUSAL FOR 2020-10-17 17:25:15 Doctor Unassigned, No [facility] DIAGNOSIS AND [facility] Medical [place] TREATMENT ASSIGNMENT OF BENEFITS 2020-10-17 17:24:54 Doctor Unassigned, No [facility] BASIC METABOLIC PANEL 2020-08-09 05:20:00 Morena Benton [facility] (NA, K, CL, CO2, Medical Branch GLUCOSE, BUN, CREATININE, CA) CBC WITH DIFF 2020-08-09 05:20:00 Morena Benton [facility] POCT TEST 2020-08-09 05:05:00 Morena Benton [facility] URINALYSIS 2020-08-09 05:03:00 Morena Benton [facility] NOTICE OF PRIVACY 2020-08-09 04:47:00 Doctor Unassigned, No [facility] CONSENT/REFUSAL FOR 2020-08-09 04:46:34 Doctor Unassigned, No [facility] DIAGNOSIS AND [facility] TREATMENT XR CHEST 1 VW 2020-01-08 06:19:33 El Hussein [facility] LIPASE 2020-01-08 06:14:00 El Hussein [facility] TROPONIN I 2020-01-08 06:14:00 El Hussein [facility] HEPATIC FUNCTION PANEL 2020-01-08 06:14:00 El Hussein [facility] ([id number]) [facility] [place] (ALB,T.PRO,BILI T,BU/BC,ALT,AST,ALK PHOS) BASIC METABOLIC PANEL 2020-01-08 06:14:00 El Hussein [facility] (NA, K, CL, CO2, Medical Branch GLUCOSE, BUN, CREATININE, CA) CBC WITH DIFF 2020-01-08 06:14:00 El Hussein [facility] URINALYSIS 2020-01-08 06:14:00 El Hussein [facility] POCT TEST 2020-01-08 06:13:00 El Hussein [facility] EKG-12 LEAD 2020-01-08 05:54:25 El Hussein [facility] Encounters Start End Encounter Admission Attending Care Care Encounter Source Date/Time Date/Time Type Type Clinicians Facility Department ID 2021-04-02 Emergency [facility] [id number] Univers 12:16:56 ity of [facility] 2023-01-20 2023-01-21 Emergency X Corey LEDEZMA [facility] ERT [id number] Univers 23:32:00 02:45:00 ity of [facility] 2023-01-20 2023-01-21 Emergency Corey Ledezma [facility] [id number] Univers 23:32:00 02:45:00 Tracey MARRERO 350.1.13.10 i ty [facility] 4.2.7.2.686 [facility] [phone] [facility] 084 [place] 2023-01-21 2023-01-21 Patient Doctor MARYSOL 1.2.840.114 [id number] Univers 00:00:00 00:00:00 Secure Msg Unassigned, MARCIO 350.1.13.10 ity of [place] [facility] 4.2.7.2.686 [place] [phone] [address] 2023-01-01 2023-01-01 [facility] 1.2.840.114 [id number] Univers 00:00:00 00:00:00 (Out) [facility] 350.1.13.10 ity of [facility] 4.2.7.2.686 [facility] AT [phone] [place] gustavo [address] 2022-12-30 2022-12-30 Patient Doctor MARYSOL 1.2.840.114 [id number] Univers 00:00:00 00:00:00 Secure Msg Unassigned, MARCIO 350.1.13.10 ity of [place] [facility] 4.2.7.2.686 [place] [phone] [address] 2022-11-26 2022-11-[address] [facility] ERT [id number] Univers 22:37:00 02:15:00 ALVARO ity of [facility] 2022-11-26 2022-11-[address] [facility] 1.2.430.124 [id number] Univers 22:37:00 02:15:00 Alvaro ELIDA 350.1.13.10 i ty [facility] 4.2.7.2.686 [facility] [phone] [address] 2022-11-26 2022-11-26 Orders Doctor MARYSOL 1.2.840.114 [id number] Univers 00:00:00 00:00:00 Only Unassigned, MARCIO 350.1.13.10 ity of [facility] 4.2.7.2.686 [place] [phone] [address] 2022-10-16 2022-10-16 Outpatient [facility] [id number] Eulogio 14:28:32 14:28:32 0517 F [place] 2022-07-02 2022-07-[address] [facility] ERT [id number] Univers 10:07:00 14:07:00 PRAKASH ity [facility] 2022-07-02 2022-07-02 Emergency [facility] 1.2.017.584 [id number] Univers 10:07:00 14:07:00 Prakash MARRERO 350.1.13.10 i ty of [place] 4.2.7.2.686 [facility] [id number] [address] 2022-07-02 2022-07-02 Orders Doctor MARYSOL 1.2.840.114 [id number] Univers 00:00:00 00:00:00 Only Unassigned, MARCIO 350.1.13.10 ity of [facility] 4.2.7.2.686 [place] [phone] [address] 2021-09-13 2021-09-[address] [facility] ERT [id number] Univers 00:42:00 02:04:00 [facility] 2021-09-13 2021-09-13 Emergency [facility] [id number] Univers 00:42:00 02:04:00 Prakash S [place] 350.1.13.10 i ty of [place] 4.2.7.2.686 [facility] [id number] [address] 2021-03-02 2021-03-02 Telephone [facility] 1.2.840.114 [id number] Univers 00:00:00 00:00:00 Felipa C CHEMIST PHYSICAL 350.1.13.10 ity of [facility] 4.2.7.2.686 [place] as MATERNAL [phone] [facility] & CHILD [address] [place] [address] 2021-02-19 2021-02-19 Outpatient R AKINSIPE, [facility] [id number] Univers 08:15:00 08:15:00 FELIPA ity o f [facility] 2021-02-06 2021-02-06 Outpatient R AKINSIPE, [facility] [id number] Univers 10:30:00 10:30:00 FELIPA ity o f [facility] 2020-12-31 2020-12-31 Emergency [facility] 1.2.270.045 [id number] Univers 16:05:00 18:56:00 Annabella Almanzar [place] 350.1.13.10 ity [facility] 4.2.7.2.686 [facility] [phone] [facility] 084 [place] 2020-12-25 2020-12-25 Telephone [facility] 1.2.840.114 [id number] Univers 00:00:00 00:00:00 Felipa C CHEMIST PHYSICAL 350.1.13.10 ity of [facility] 4.2.7.2.686 [place] MATERNAL [phone] [facility] & [address] 2020-12-24 2020-12-24 Nurse Lise Garcia 1.2.840.114 [id number] Univers 00:00:00 00:00:00 Triage MARCIO 350.1.13.10 it y of [facility] 4.2.7.2.686 [place] [phone] [facility] 019 [place] 2020-11-13 2020-11-13 Patient [facility], [facility] 1.2.900.824 [id number] Univers 00:00:00 00:00:00 Secure Msg Felipa C CHEMIST PHYSICAL 350.1.13.10 ity of [facility] 4.2.7.2.686 [place] MATERNAL [phone] [facility] & CHILD [address] [place] [address] 2020-11-07 2020-11-07 [facility] 1.2.392.093 [id number] Univers 09:33:35 11:41:19 Visit Felipa C CHEMIST PHYSICAL 350.1.13.10 ity of REGIONAL 4.2.7.2.686 [place] MATERNAL [phone] [facility] & CHILD [address] [place] [address] 2020-11-07 2020-11-07 Outpatient R FINN [facility] [id number] Univers 09:30:00 09:30:00 FELIPA ity o f [facility] 2020-11-03 2020-11-03 Telephone [facility] 1.2.840.114 [id number] Univers 00:00:00 00:00:00 Felipa C CHEMIST PHYSICAL 350.1.13.10 ity of REGIONAL 4.2.7.2.686 [place] MATERNAL [phone] [facility] & CHILD [address] [place] [address] 2020-11-02 2020-11-02 Telephone [facility] 1.2.840.114 [id number] Univers 00:00:00 00:00:00 Felipa C CHEMIST PHYSICAL 350.1.13.10 ity of REGIONAL 4.2.7.2.686 [place] MATERNAL [id number] [facility] & CHILD [address] [place] [address] 2020-11-01 2020-11-01 Patient [facility] 1.2.234.010 [id number] Univers 00:00:00 00:00:00 Secure Msg Felipa C CHEMIST PHYSICAL 350.1.13.10 ity of REGIONAL 4.2.7.2.686 [place] MATERNAL [id number] [facility] & CHILD [address] [place] [address] 2020-11-01 2020-11-01 Refill [facility] 1.2.013.077 [id number] Univers 00:00:00 00:00:00 Felipa C CHEMIST PHYSICAL 350.1.13.10 ity of REGIONAL 4.2.7.2.686 [place] MATERNAL [id number] Med ical & CHILD 107 [facility] 2020-11-01 2020-11-01 Letter ELDA Jonas 1.2.840.114 [id number] Univers 00:00:00 00:00:00 (Out) Jake Westbrook [facility] 350.1.13.10 i ty of CL[place] [id number] [address] 2020-10-27 2020-10-27 Outpatient R [facility] [id number] Univers 15:30:00 15:30:00 ity of [facility] 2020-10-23 2020-10-[address] [facility] 1.2.047.022 [id number] Univers 00:00:00 00:00:00 Secure Msg Felipa Messina [facility] PH[facility]ICAL 350.1.13.10 ity of [facility] 4.2.7.2.686 [place] MATERNAL [phone] [facility] ical & CHILD [address] [place] [address] 2020-10-19 2020-10-[address] [facility] 1.2.840.114 [id number] Univers 00:00:00 00:00:00 Felipa Messina CHEMIST PHYSICAL 350.1.13.10 ity of [facility] 4.2.7.2.686 [place] MATERNAL [phone] [facility] & CHILD [address] [place] [address] 2020-10-17 2020-10-[address] [facility] [id number] Univers 12:46:36 14:56:59 Visit Felipa C CHEMIST PHYSICAL 350.1.13.10 ity of [facility] 4.2.7.2.686 [place] as MATERNAL [phone] [facility] & CHILD [address] [place] [address] 2020-10-17 2020-10-17 [facility] [id number] Univers 13:00:00 13:00:00 FELIPA dueñas [facility] 2020-10-17 2020-10-17 Orders Doctor GREGG 1.2.840.114 [id number] Univers 00:00:00 00:00:00 Only Unassigned, MARCIO 350.1.13.10 ity of [place] [facility] 4.2.7.2.686 [place] as [phone] [address] 2020-08-08 2020-08-09 Emergency [facility] 1.2.840.114 [id number] Univers 22:53:00 01:02:00 Morena Marrero 350.1.13.10 ity of [place] 4.2.7.2.686 [facility] [id number] [address] 2020-08-08 2020-08-08 Emergency X [facility] ERT [id number] Univers 22:53:00 22:53:00 MORENA mills [facility] 2020-08-08 2020-08-08 Orders Doctor MARYSOL 1.2.840.114 [id number] Univers 00:00:00 00:00:00 Only Unassigned, MARCIO 350.1.13.10 ity of [place] [facility] 4.2.7.2.686 [place] [id number] [address] 2020-01-08 2020-01-08 Emergency El Hussein [facility] 1.2.840.114 [id number] Univers 00:31:00 02:30:00 T Elida 350.1.13.10 i ty of [place] 4.2.7.2.686 [facility] [id number] [address] 2020-01-08 2020-01-08 Emergency El Hussein [facility] 1.2.840.114 [id number] 00:31:00 02:30:00 T [place] 350.1.13.10 [place] 4.2.7.2.686 [place] [id number] [facility] 2020-01-08 2020-01-08 Emergency X EL HUSSEIN [facility] ERT [id number] Univers 00:31:00 00:31:00 ity [facility] Results Test Description Test Time Test Comments Results Result Comments Source POCT TEST 2023-01-21 06:04:00 Test Item Value Reference Range Interpretation Comme nts POCT PREG (test code = 1605) Negative On board controls acceptable with C Line (test code = 3574) Yes POCT PREG LOT # (test code = 3575) [id number] POCT PREG TEST DATE (test code = 3576) 06/04/2024 Lab Interpretation (test code = 14242-4) [facility] [id number] 05:39:07 Test Item Value Reference Range Interpretation Comments LACTIC ACID (test code = 1.37 mmol/L 0.50-2.20 5090594077) Lab Interpretation (test code = Normal 47299-8) [facility] [id number] 05:32:00 Test Item Value Reference Range Interpretation Comments POCT PREG (test code = 1605) Negative On board controls acceptable with Yes C Line (test code = 3574) POCT PREG LOT # (test code = 3575) [id number] POCT PREG TEST DATE (test 03/07/2024 code = 3576) Lab Interpretation (test code = Normal 59543-4) [facility]21[facility]01 21:40:37 Test Item Value Reference Range Interpretation Comments APPEARANCE (test code = Hazy Clear A 4442314477) COLOR (test code = Yellow Yellow 1467967549) PH (test code = 4.8-8.0 0795138795) SP GRAVITY (test code = 1.003-1.030 9333259408) GLU U QUAL (test code = Normal Normal 4242482836) BLOOD (test code = 2+ Negative A 0996278373) KETONES (test code = Negative Negative 0750633847) PROTEIN (test code = Negative Negative 2887-8) UROBILIN (test code = Normal Normal 4838714270) BILIRUBIN (test code = Negative Negative 0140695938) NITRITE (test code = Negative Negative 6121698527) LEUK MAXIMINO (test code = Negative Negative 3967176014) RBC/HPF (test code = See_Comment [Autom ated message] 3925457344) The system [employer] generated this result transmitted ref erence range: 0 - 3 HP F. The reference range was not used to int erpret this result as normal/abnormal . WBC/HPF (test code = See_Comment [Autom ated message] 0008222374) The system [employer] generated this result transmitted ref erence range: 0 - 5 HP F. The reference range was not used to int erpret this result as normal/abnormal . BACTERIA (test code = Few Negative A 2582158093) MUCOUS (test code = Slight Negative LPF A 1723229978) SQ EPITH (test code = HPF 0401615207) HYAL CAST (test code = See_Comment [Aut omated message] 7698185390) The system [employer] generated this result transmitted ref erence range: <=2 LPF. The reference range was not used to int erpret this result as normal/abnormal . Lab Interpretation (test Abnormal code = 56342-8) [facility] [id number] 21:04:00 Test Item Value Reference Range Interpretation Comments POCT PREG (test code = 1605) negative On board controls acceptable with present C Line (test code = 3574) POCT PREG LOT # (test code = 3575) [id number] POCT PREG TEST DATE (test 06/01/2022 code = 3576) Lab Interpretation (test code = Normal 79294-7) [facility] [id number] 20:00:00 Test Item Value Reference Range Interpretation Comments POCT PREG (test code = 1605) Negative On board controls acceptable with C Yes Line (test code = 3574) POCT PREG LOT # (test code = 3575) POCT PREG TEST DATE (test code = 3576) [facility] [id number] 20:00:00 Test Item Value Reference Range Interpretation Comments POCT PREG (test code = 1605) Negative On board controls acceptable with C Yes Line (test code = 3574) POCT PREG LOT # (test code = 3575) POCT PREG TEST DATE (test code = 3576) [facility]inalysis2021-03-10 05:59:35 Test Item Value Reference Range Interpretation Comments APPEARANCE (test code = Clear Clear 8749570777) COLOR (test code = Yellow Yellow 6489552110) PH (test code = 4.8-8.0 6657046679) SP GRAVITY (test code = 1.003-1.030 1429796056) GLU U QUAL (test code = Normal Normal 8691795619) BLOOD (test code = 1+ Negative A 7833035012) KETONES (test code = Negative Negative 8791735760) PROTEIN (test code = Negative Negative 2887-8) UROBILIN (test code = Normal Normal 0684957102) BILIRUBIN (test code = Negative Negative 1178327229) NITRITE (test code = Negative Negative 7069100361) LEUK MAXIMINO (test code = Negative Negative 7565356310) RBC/HPF (test code = See_Comment [Autom ated message] 0981799284) The system [employer] generated this result transmitted ref erence range: 0 - 3 HP F. The reference range was not used to int erpret this result as normal/abnormal . WBC/HPF (test code = See_Comment [Autom ated message] 3906080012) The system [employer] generated this result transmitted ref erence range: 0 - 5 HP F. The reference range was not used to int erpret this result as normal/abnormal . BACTERIA (test code = Few Negative A 5778932481) MUCOUS (test code = Slight Negative LPF A 4704941417) SQ EPITH (test code = HPF 9825398093) Lab Interpretation (test Abnormal code = 32848-7) [facility] Metabolic Panel (NA, K, CL, CO2, GLUCOSE, BUN, CREATININE, CA)2020-08-09 05:38:20 Test Item Value Reference Range Interpretation Comments NA (test code = 137 mmol/L 135-145 7509872529) K (test code = 3.8 mmol/L 3.5-5.0 2669062974) CL (test code = 102 mmol/L 98-108 0644805300) CO2 TOTAL (test code = 26 mmol/L 23-31 6827616698) AGAP (test code = 2-16 5674649618) BUN (test code = 9 mg/dL 7-23 1178077600) GLUCOSE (test code = 83 mg/dL 70-110 7911281917) CREATININE (test code 0.67 mg/dL 0.50-1.04 = 3125383428) CALCIUM (test code = 9.4 mg/dL 8.6-10.6 7210335618) eGFR Calculation mL/min/1.73m2 (Non-) (test code = 5244915078) eGFR Calculation mL/min/1.73m2 () (test code = 5071369013) AVA (test code = AVA) Association of [...] or urine or abnormalities in imaging tests). [facility] [id number] 05:05:00 Test Item Value Reference Range Interpretation Comments POCT PREG (test code = 1605) neg On board controls acceptable with yes C Line (test code = 3574) POCT PREG LOT # (test code = 3575) [id number] POCT PREG TEST DATE (test 04/01/2022 code = 3576) Lab Interpretation (test code = Normal 27016-5) [facility] [id number] 06:59:00 Test Item Value Reference Range Interpretation Comments TROPONIN I (test <0.012 See_Comment [Automated code = 5415702357) message] The system which generated this result [...] ? Lab Interpretation Normal (test code = 22955-9) [facility] Met[facility] (NA, K, CL, CO2, GLUCOSE, BUN, CREATININE, CA)2020-01-08 06:48:00 Test Item Value Reference Range Interpretation Comments NA (test code = 138 mmol/L 135-145 2815350323) K (test code = 4.0 mmol/L 3.5-5 6673880623) CL (test code = 106 mmol/L 98-108 7170693410) CO2 TOTAL (test code = 24 mmol/L 23-31 8318443679) AGAP (test code = 2-16 0296648944) BUN (test code = 10 mg/dL 7-23 9973139175) GLUCOSE (test code = 91 mg/dL 70-110 8854652389) CREATININE (test code 0.64 mg/dL 0.5-1.04 = 6741623607) CALCIUM (test code = 9.3 mg/dL 8.6-10.6 1003242930) eGFR Calculation mL/min/1.73m2 (Non-) (test code = 8034500611) eGFR Calculation mL/min/1.73m2 () (test code = 4978007651) AVA (test code = AVA) Association of [...] or urine or abnormalities in imaging tests). [facility] (ALB, T.PRO, BILI T, BU/BC, ALT, AST, ALK PHOS)2020-01-08 06:48:00 Test Item Value Reference Range Interpretation Comments TOTAL BILI (test code = 7036668127) 0.2 mg/dL 0.1-1.1 BILI UNCON (test code = 8512521692) 0.4 mg/dL 0.1-1.1 BILI CONJ (test code = 9390062412) 0.0 mg/dL 0-0.3 T PROTEIN (test code = 3401322715) 7.4 g/dL 6.3-8.2 ALBUMIN (test code = 7696188816) 4.6 g/dL 3.5-5 ALK PHOS (test code = 5041038500) 45 U/L 34-122 ALTv (test code = 1742-6) 22 U/L 5-35 AST(SGOT) (test code = 2063674208) 27 U/L 13-40 Lab Interpretation (test code = Normal 83929-3) [facility] [id number] 06:48:00 Test Item Value Reference Range Interpretation Comments LIPASE (test code = 6404708505) 78 U/L 0-220 Lab Interpretation (test code = Normal 53028-9) [facility]2020-08-[facility] 06:41:00 Test Item Value Reference Range Interpretation Comments APPEARANCE (test code = Clear Clear 0775450378) COLOR (test code = Colorless Yellow A 1911049164) PH (test code = 4.8-8.0 7144835775) SP GRAVITY (test code = 1.003-1.030 7770051843) GLU U QUAL (test code = Normal Normal 6772443521) BLOOD (test code = 1+ Negative A 3520167054) KETONES (test code = Negative Negative 6165538537) PROTEIN (test code = Negative Negative 2887-8) UROBILIN (test code = Normal Normal 1283606013) BILIRUBIN (test code = Negative Negative 7358557762) NITRITE (test code = Negative Negative 3214863901) LEUK MAXIMINO (test code = Negative Negative 6908356859) RBC/HPF (test code = See_Comment [Autom ated message] 7950275050) The system [employer] generated this result transmit jill reference range : 0 - 3 HPF. The refe rence range was not u sed to interpret th is result as normal/abnormal . WBC/HPF (test code = See_Comment [Autom ated message] 6187993850) The system [employer] generated this result transmit jill reference range : 0 - 5 HPF. The refe rence range was not u sed to interpret th is result as normal/abnormal . BACTERIA (test code = Few Negative A 4601495958) SQ EPITH (test code = HPF 5603775545) Lab Interpretation (test Abnormal code = 93665-3) [facility] with [id number] 06:31:00 Test Item Value Reference Range Interpretation [...] RDW-SD (test code = 39.7 fL 39-49.9 72463-5) RDW-CV (test code = 13.2 % 12-15.5 788-0) PLT (test code = See_Comment H [Automated 777-3) message] The sy stem which generated this result transmitted reference range : 166 - 358 10*3/ ?L. The reference r karishma was not used to interpret this result as normal/abnormal . MPV (test code = 10.2 fL 9.5-12.9 26496-7) NRBC/100 WBC (test See_Comment [Automat ed code = 2086890156) message] The system which generated this result transmitted reference range : 0.0 - 10.0 /100 WBCs. The refer ence range was not u sed to interpret th is result as normal/abnormal . NRBC x10^3 (test code <0.01 See_Comment [Auto mated = 1778566940) message] The s ystem which generated this result transmitted reference range : 10*3/?L. The reference range was not used to interpret this result as normal/abnormal . GRAN MAT (NEUT) % 48.6 % (test code = 770-8) IMM GRAN % (test code 0.60 % = 1031149441) LYMPH % (test code = 41.9 % 736-9) MONO % (test code = 6.3 % 5905-5) EOS % (test code = 2.2 % 713-8) BASO % (test code = 0.4 % 706-2) GRAN MAT x10^3(ANC) 5.09 10*3/uL 1.88-7.09 (test code = 0882115827) IMM GRAN x10^3 (test 0.06 10*3/uL 0-0.06 code = 3744315542) LYMPH x10^3 (test code 4.38 10*3/uL 1.32-3.29 H = 731-0) MONO x10^3 (test code 0.66 10*3/uL 0.33-0.92 = 742-7) EOS x10^3 (test code = 0.23 10*3/uL 0.03-0.39 711-2) BASO x10^3 (test code 0.04 10*3/uL 0.01-0.07 = 704-7) Lab Interpretation Abnormal (test code = 83180-1) [facility] [id number] 06:13:00 Test Item Value Reference Range Interpretation Comments POCT PREG (test code = 1605) negative On board controls acceptable with positive C Line (test code = 3574) POCT PREG LOT # (test code = 3575) [id number] POCT PREG TEST DATE (test code = 3576) Lab Interpretation (test code = Normal 29595-4) [facility]"
--- NOTE | 2023-04-06 21:06 | RAD REPORT ---
EXAM DESCRIPTION: [facility] Single View04/06/2023 8:50 pm CLINICAL HISTORY: CHEST PAIN COMPARISON: No comparisons TECHNIQUE: Portable AP view of the chest. FINDINGS: The lungs are clear. No pneumothorax or effusion. The cardiomediastinal contours are unre markable. IMPRESSION: No acute cardiopulmonary process.
[2023-04-06] MEDS ORDERED: DIPHENHYDRAMINE 50 MG/ML VIAL ONE (21:42)
[2023-04-06] MEDS ORDERED: METOCLOPRAMIDE 10 MG/2mL INJ ONE (21:42)
[2023-04-06] MEDS ORDERED: NA CHLORIDE 0.9% 1,000 ML ONE (21:43)
[2023-04-06] MEDS ORDERED: ONDANSETRON 4 MG/2 ML VIAL ONE (21:43)
[2023-04-06 22:00] LABS: Absolute Lymphocytes (CBC) 3.5 K/uL (0.7-4.9); Hematocrit 39.3 % (36.0-45.0); Lymphocytes % 31.8 % (15.3-44.8); MCV 83.8 fL (80-100); MPV 7.8 fL (7.6-11.3); Platelets 392 thou/uL (152-406); RBC Red Blood Cell Count 4.69 M/uL (3.86-4.86)
[2023-04-06] MEDS ORDERED: MECLIZINE HCL 12.5 MG TAB ONE (22:02)
[2023-04-06 22:08] LABS: ALT/SGPT 18 U/L (13-56); AST/SGOT 15 U/L (15-37); Alkaline Phosphatase 43 U/L (45-117); BUN Blood Urea Nitrogen 8 mg/dL (7-18); Bicarbonate 27 mEq/L (21-32); Bilirubin Total 0.2 mg/dL (0.2-1.0); Glomerular Filtration Rate 125 ml/min (=/>90); Glucose Level 87 mg/dL (74-106); Lipase 37 U/L (13-75); Magnesium 2.2 mg/dL (1.6-2.4); Potassium 3.6 mEq/L (3.5-5.1); Protein, Total 7.6 g/dL (6.4-8.2); Sodium Level 139 mEq/L (136-145); Troponin High Sensitivity 3.4 pg/mL (<58.9)
[2023-04-06 22:09] LABS: Bilirubin Direct < 0.1 mg/dL (0-0.2); Bilirubin Indirect, Calculated ND mg/dL (0.2-0.8)
--- NOTE | 2023-04-06 22:36 | ER ---
Nurse's Notes [facility] Name: Gisele Tilley Age: 23 yrs Sex: Female : 2000 Arrival Date: 04/06/2023 Time: 19:52 Bed 5 Private MD: Diagnosis: Nausea;Dizziness and giddiness;Headache;Chest pain, unspecified;Abdominal pain, unspecified Presentation: 04/06 20:11 Chief complaint: Chills, nausea, headache, malaise, abdominal cramping, and dizziness hb upon waking today. Pt reports drinking "a lot of alcohol" last night. Coronavirus screen: Client presents with at least one sign or symptom that may indicate coronavirus-19. Provider contacted for isolation considerations. Ebola Screen: No symptoms or risks identified at this time. Initial Sepsis Screen: Does the patient meet any 2 criteria? No. Patient's initial sepsis screen is negative. Does the patient have a suspected source of infection? No. Patient's initial sepsis screen is negative. Risk Assessment: Do you want to hurt yourself or someone else? Patient reports no desire to harm self or others. Onset of symptoms was April 06, 2023. 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 - Social history:: Smoking status: Patient denies any tobacco usage or history of. Screenin:37 [facility] ED Fall Risk Assessment (Adult) History of falling in the last 3 months, km8 including since admission No falls in past 3 months (0 pts) Confusion or Disorientation No (0 pts) Intoxicated or Sedated No (0 pts) Impaired Gait No (0 pts) Mobility Assist Device Used No (0 pt) Altered Elimination No (0 pt) Score/Fall Risk Level 0 - 2 = Low Risk Oriented to surroundings, Maintained a safe environment, Educated pt \\T\\ family on fall prevention, incl call for assistance when getting out of bed, Assessed \\T\\ reinforced patient's understanding of fall precautions. Abuse screen: Denies threats or abuse. Denies injuries from another. Nutritional screening: No deficits noted. Tuberculosis screening: No symptoms or risk factors identified. Assessment: 21:37 General: Appears in no apparent distress. comfortable, Behavior is calm, cooperative, km8 appropriate for age. Pain: Complains of pain in head and chest Pain currently is 10 out of 10 on a pain scale. Neuro: Nieves Agitation-Sedation Scale (RASS): 0 - Alert and Calm Level of Consciousness is awake, alert, obeys commands, Oriented to person, place, time, situation. Cardiovascular: Reports chest pain, Capillary refill < 3 seconds Patient's skin is warm and dry. Rhythm is sinus tachycardia. Respiratory: Airway is patent Respiratory effort is even, unlabored, Respiratory pattern is regular, symmetrical. GI: Reports nausea. : No signs and/or symptoms were reported regarding the genitourinary system. EENT: No signs and/or symptoms were reported regarding the EENT system. Derm: Skin is intact, Skin is dry, Skin is normal, Skin temperature is warm. Musculoskeletal: No signs and/or symptoms reported regarding the musculoskeletal system. Circulation, motion, and sensation intact. Range of motion: intact in all extremities. 21:57 General: pt refuses to give urine sample; Casey Broussard NP notified. km8 22:03 Reassessment: Patient appears in no apparent distress at this time. No changes from km8 previously documented assessment. Patient and/or family updated on plan of care and expected duration. Pain level reassessed. Patient is alert, oriented x 3, equal unlabored respirations, skin warm/dry/pink. 22:35 Reassessment: pt requesting to leave. Casey Broussard NP notified and en route to bedside. km8 Vital Signs: 20:11 BP 135 / 71; Pulse 97; Resp 16; Temp 99.7(TE); Pulse Ox 100% on R/A; Weight 88.45 kg; hb Height 5 ft. 4 in. ; Pain 8/10; 21:42 BP 117 / 90; Pulse 72; Resp 16 S; Pulse Ox 100% on R/A; km8 22:00 BP 158 / 83; Pulse 72; Resp 16 S; Pulse Ox 99% on R/A; km8 20:11 Body Mass Index 33.47 (88.45 kg, 162.56 cm) hb 20:11 Pain Scale: Adult hb ED Course: 19:55 Patient arrived in ED. jj6 19:57 Casey Broussard PA is PHCP. cp 19:57 Rad Tai MD is Attending Physician. cp 20:14 Triage completed. hb 20:15 Arm band placed on. hb 20:51 XRAY Chest (1 view) In Process Unspecified. EDMS 21:25 Carina Baker, RN is Primary Nurse. km8 21:37 Patient has correct armband on for positive identification. Bed in low position. Call km8 light in reach. Side rails up X 1. Client placed on continuous cardiac and pulse oximetry monitoring. NIBP monitoring applied. library monitor on. Door closed. Noise minimized. Warm blanket given. 21:37 Patient maintains SpO2 saturation greater than 95% on room air. km8 21:41 Inserted saline lock: 20 gauge in right antecubital area, using aseptic technique. km8 Blood collected. 21:41 Basic Metabolic Panel Sent. km8 21:41 CBC with Diff Sent. km8 21:41 LFT's Sent. km8 21:42 Troponin HS Sent. km8 21:42 Magnesium Sent. km8 21:42 Lipase Sent. km8 22:48 Provided Education on: d/c teaching. km8 22:48 No provider procedures requiring assistance completed. IV discontinued, intact, km8 bleeding controlled, No redness/swelling at site. Pressure dressing applied. Administered Medications: 21:42 Drug: NS 0.9% IV 1000 ml IV at 1 bolus Per protocol; 1000 mL bolus Route: IV; Rate: 1 km8 bolus; Site: right antecubital; 22:49 Follow up: IV Status: Completed infusion; IV Intake: 1000ml 8 21:42 Drug: metoCLOPramide IVP 10 mg IVP once; over 1 to 2 minutes Route: IVP; Site: right 8 antecubital; 22:49 Follow up: Response: No adverse reaction 8 21:42 Drug: Ondansetron IVP 4 mg IVP once; over 2 minutes Route: IVP; Site: right antecubital;km8 22:49 Follow up: Response: No adverse reaction 8 21:42 Drug: diphenhydrAMINE IVP 25 mg IVP once Route: IVP; Site: right antecubital; km8 22:49 Follow up: Response: No adverse reaction km8 21:57 Drug: Meclizine PO 25 mg PO once Route: PO; km8 22:49 Follow up: Response: No adverse reaction km8 Medication: 22:48 VIS not applicable for this client. km8 Intake: 22:49 IV: 1000ml; Total: 1000ml. km8 Outcome: 22:36 Discharge ordered by MD. cp 22:48 Discharged to home via wheelchair, km8 22:48 Condition: good 22:48 Discharge instructions given to patient, significant other, Instructed on discharge instructions, follow up and referral plans. medication usage, Demonstrated understanding of instructions, follow-up care, medications, Prescriptions given X 2, 22:49 Patient left the ED. km8 Signatures: Dispatcher [employer] EDMS Casey Broussard PA PA cp Baxter, Heather, TALON RN Reema Gomez [email or web address] Carina Baker RN RN km8 Corrections: (The following items were deleted from the chart) 20:26 20:11 BP 135 / 71; Pulse 97bpm; Resp 16bpm; Pulse Ox 100% RA; Temp 99.7F Temporal; hb 43.23 kg; Height 5 ft. 4 in.; BMI: 16.3; Pain 8/10, Adult; hb
--- NOTE | 2023-04-06 22:36 | EDPHYS ---
Physician Documentation [facility] Name: Gisele Tilley Age: 23 yrs Sex: Female : 2000 Arrival Date: 04/06/2023 Time: 19:52 Bed 5 Private MD: ED Physician Rad Tai HPI: 04/06 20:30 This 23 yrs old Female presents to ER via Ambulatory with complaints of cp General Weakness, Nausea, Headache, Dizziness. 20:30 The patient presents with dizziness, lightheadedness. cp 20:30 Onset: The symptoms/episode began/occurred this morning. Associated signs and symptoms: cp Pertinent positives: abdominal pain, chest pain, headache, nausea, general weakness, Pertinent negatives: blurred vision, focal weakness, vomiting, fever. Severity of symptoms: in the emergency department the symptoms are unchanged. Patient's baseline: Neuro: alert and fully oriented, Motor: no deficits, Ambulation: walks without assistance, Speech: normal. Patient admits to consuming an excess of alcohol last night. 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 - Social history:: Smoking status: Patient denies any tobacco usage or history of. ROS: 20:30 Eyes: Negative for injury, pain, redness, and discharge, cp 20:30 Constitutional: Negative for body aches, chills, fever, 20:30 ENT: Negative for drainage from ear(s), ear pain, sore throat, difficulty swallowing, difficulty handling secretions, 20:30 Cardiovascular: Positive for chest pain, 20:30 Respiratory: Negative for cough, shortness of breath, wheezing, 20:30 Abdomen/GI: Positive for abdominal pain, nausea, Negative for vomiting, diarrhea, constipation, 20:30 Neuro: Positive for dizziness, headache, weakness, Negative for altered mental status, loss of consciousness, syncope, 20:30 All other systems are negative, Exam: 20:33 Constitutional: The patient appears in no acute distress, alert, awake, non-toxic, well cp developed, well nourished, overweight 20:33 Head/Face: Normocephalic, atraumatic. cp 20:33 Eyes: Periorbital structures: appear normal, Pupils: equal, round, and reactive to light and accomodation, Extraocular movements: intact throughout, Conjunctiva: normal, no exudate, no injection, Sclera: no appreciated abnormality, Lids and lashes: appear normal, bilaterally, 20:33 ENT: External ear(s): are unremarkable, Ear canal(s): are normal, TM's: dullness, bilaterally, Nose: is normal, Mouth: Lips: moist, Oral mucosa: pink and intact, moist, Posterior pharynx: is normal, airway is patent, no erythema, no exudate, 20:33 Neck: ROM/movement: is normal, is supple, without pain, no range of motions limitations, no meningismus, no nuchal rigidity, 20:33 Chest/axilla: Inspection: normal, 20:33 Cardiovascular: Rate: normal, Rhythm: regular, Edema: is not appreciated, JVD: is not appreciated, 20:33 Respiratory: the patient does not display signs of respiratory distress, Respirations: normal, no use of accessory muscles, no retractions, labored breathing, is not present, Breath sounds: are clear throughout, no decreased breath sounds, no stridor, no wheezing, 20:33 Abdomen/GI: Inspection: abdomen appears normal, Bowel sounds: active, all quadrants, Palpation: soft, in all quadrants, mild abdominal tenderness, in the right lower quadrant and left lower quadrant, rebound tenderness, is not appreciated, 20:33 Back: CVA tenderness, is absent, 20:33 Neuro: Orientation: to person, place \T\ time. Mentation: is normal, Motor: moves all fours, strength is normal, Gait: is steady, at a normal pace, without difficulty, 21:45 ECG was reviewed by the Attending Physician. cp Vital Signs: 20:11 BP 135 / 71; Pulse 97; Resp 16; Temp 99.7(TE); Pulse Ox 100% on R/A; Weight 88.45 kg; hb Height 5 ft. 4 in. ; Pain 8/10; 21:42 BP 117 / 90; Pulse 72; Resp 16 S; Pulse Ox 100% on R/A; km8 22:00 BP 158 / 83; Pulse 72; Resp 16 S; Pulse Ox 99% on R/A; km8 20:11 Body Mass Index 33.47 (88.45 kg, 162.56 cm) hb 20:11 Pain Scale: Adult hb MDM: 20:17 Patient medically screened. cp 21:00 Differential diagnosis: cardiac arrhythmia, hypovolemia, idiopathic dizziness, cp , sepsis, vertigo. 22:33 Data reviewed: vital signs, nurses notes, lab test result(s), EKG, radiologic studies, cp plain films. I considered the following discharge prescriptions or medication management in the emergency department Medications were administered in the Emergency Department. See MAR. Independent interpretation of the following test(s) in the Emergency Department EKG: See my EKG interpretation above. Counseling: I had a detailed discussion with the patient and/or guardian regarding the historical points, exam findings, and any diagnostic results supporting the discharge/admit diagnosis, lab results, radiology results, to return to the emergency department if symptoms worsen or persist or if there are any questions or concerns that arise at home. Response to treatment: improved, patient requesting discharge to home. 04/06 20:22 Order name: Basic Metabolic Panel; Complete Time: 22:28 cp 04/06 22:29 Interpretation: Normal except: CL 108. cp 04/06 20:22 Order name: CBC with Diff; Complete Time: 22:28 cp 04/06 22:29 Interpretation: Normal except: WBC 11.10. cp 04/06 20:22 Order name: LFT's; Complete Time: 22:28 04/06 22:29 Interpretation: Normal except: ALK 43; GLOB 3.6. cp 04/06 20:22 Order name: Magnesium; Complete Time: 22:28 cp 04/06 20:22 Order name: Troponin HS; Complete Time: 22:28 cp 04/06 20:22 Order name: Lipase; Complete Time: 22:28 cp 04/06 20:22 Order name: XRAY Chest (1 view); Complete Time: 22:28 cp 04/06 20:22 Order name: EKG; Complete Time: 20:23 cp 04/06 20:22 Order name: Cardiac monitoring; Complete Time: 21:41 cp 04/06 20:22 Order name: EKG - Nurse/Tech; Complete Time: 21:41 cp 04/06 20:22 Order name: IV Saline Lock; Complete Time: 21:41 cp 04/06 20:22 Order name: Labs collected and sent; Complete Time: 21:41 cp 04/06 20:22 Order name: O2 Per Protocol; Complete Time: 21:41 cp 04/06 20:22 Order name: O2 Sat Monitoring; Complete Time: 21:41 cp EC:45 Rate is 72 beats/min. Rhythm is regular. AR interval is normal. QRS interval is normal. cp QT interval is normal. T waves are Inverted in lead aVR. Interpreted by me. Reviewed by me. Administered Medications: 21:42 Drug: NS 0.9% IV 1000 ml IV at 1 bolus Per protocol; 1000 mL bolus Route: IV; Rate: 1 km8 bolus; Site: right antecubital; 22:49 Follow up: IV Status: Completed infusion; IV Intake: 1000ml km8 21:42 Drug: metoCLOPramide IVP 10 mg IVP once; over 1 to 2 minutes Route: IVP; Site: right 8 antecubital; 22:49 Follow up: Response: No adverse reaction km8 21:42 Drug: Ondansetron IVP 4 mg IVP once; over 2 minutes Route: IVP; Site: right antecubital;km8 22:49 Follow up: Response: No adverse reaction km8 21:42 Drug: diphenhydrAMINE IVP 25 mg IVP once Route: IVP; Site: right antecubital; km8 22:49 Follow up: Response: No adverse reaction km8 21:57 Drug: Meclizine PO 25 mg PO once Route: PO; km8 22:49 Follow up: Response: No adverse reaction km8 Disposition: 04/07 01:10 Co-signature as Attending Physician, Rad Tai MD I agree with the assessment sp4 and plan of care. I reviewed the patient's care provided by the Advanced Practice Provider and agree with the diagnosis and treatment plan. Disposition Summary: 04/06/23 22:36 Discharge Ordered Notes: Location: Home cp Problem: new cp Symptoms: have improved cp Condition: Stable cp Diagnosis - Nausea cp - Dizziness and giddiness cp - Headache cp - Chest pain, unspecified cp - Abdominal pain, unspecified cp Followup: cp - With: Private Physician - When: 2 - 3 days - Reason: Recheck today's complaints Discharge Instructions: - Abdominal Pain, Adult cp - Nonspecific Chest Pain, Adult cp - Dizziness cp - Nausea, Adult cp - Discharge Summary Sheet hb Forms: - Medication Reconciliation Form cp - Thank You Letter cp - Antibiotic Education cp - Prescription Opioid Use cp - Patient Portal Instructions cp - Leadership Thank You Letter cp - Work release form hb - Family Work Release km8 Prescriptions: - Meclizine 25 mg Oral Tablet - take 1 tablet ORAL route every 8 hours As needed; 30 tablet; Refills: 0, cp Product Selection Permitted - Zofran 4 mg Oral Tablet - take 1 tablet ORAL route every 12 hours As needed; 20 tablet; Refills: 0, cp Product Selection Permitted Signatures: Dispatcher [employer] EDMS Casey Broussard PA PA cp Tea Morillo, RN RN Rad Tai MD MD sp4 Carina Baker RN RN km8
[2023-04-06 22:55] VITALS: TEMP 99.7
[2023-04-06 22:58] VITALS: BP 158/83; O2SAT 99
--- NOTE | 2023-04-12 14:34 | EKG ---
Test Date: 2023-04-06 Test Time: 22:38:48 Layer Up: HORACIO MEASUREMENT RESULTS: Intervals: Rate: 72 NJ: 150 QRSD: 82 QT: 394 QTc: 431 [place]: P: 52 NJ: 150 QRS: 56 T: 37 INTERPRETIVE STATEMENTS: Normal sinus rhythm Normal ECG No previous ECG available for comparison Electronically Signed On 04-12-23 14:18:24 GENERAL OFFICE ASSISTANT by Corby Comer
== END 2023-04-06 22:49 | disposition home or self-care (01) ==
LOC: ER 19:52
DX: R11.0 Nausea (principal); R51.9 Headache, unspecified; R42 Dizziness and giddiness; R07.9 Chest pain, unspecified; R10.9 Unspecified abdominal pain
CPT/HCPCS: 36415; 71045; 80048; 80076; 83690; 83735; 84484; 85025; 93005; 96361; 96374; 96375; 99285; J1200; J2405; J2765; J7030; J8597

== ENCOUNTER → 2023-06-30 | Emergency (ER) | payer SELFPAY ==
--- OUTSIDE RECORDS SUMMARY | 2023-06-30 13:19 | XMS REPORT | Continuity of Care Document ---
Author Name Unknown Address [address] [facility]. 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 Name Role Phone Francesca Walsh Primary Care Physician [phone] Corey LEDEZMA Attending Clinician Unavailable Corey Neal Attending Clinician [phone] Doctor Unassigned, [place] Attending Clinician [facility] Attending Clinicia n ALVARO HERNDON Attending Clinician Unavailable Alvaro Herndon MD Attending Clinician [phone] PRAKASH ALLAN Attending Clinician Unavailable Prakash Wells S Attending Clinician [phone] Felipa Castellanos Attending Clinician + FELIPA BRISENO Attending Clinician Unavail Annabella Munson NP Attending Clinician [phone] Lise Garcia RN Attending Clinician Unavailable Jake Jonas MD Attending Clinician [phone] Morena Benton DO Attending Clinician [phone] MORENA BENTON Attending Clinician Unavailab El Rose Attending Clinician [phone] EL HUSSEIN Attending Clinician Unavailable Corey LEDEZMA Admitting Clinician Unavailable ALVARO HERNDON Admitting Clinician Unavailable PRAKASH ALLAN Admitting Clinician Unavailable Payers Payer Name Policy Type Policy Number Effective Date Expirati on Date Source MEDICAID PENDING PENDING 2020 00:00:00 2021 00:00:00 Problems Condition Name Condition Details Condition Category Status Onset Date Resolution Date Last Treatment Date Treating Clinician Comments Source Well woman exam Well woman exam Disease Active 10-17 00:00: 00 [facility] Obesity (BMI 30-39.9) Obesity (BMI 30-39.9) Disease Active 10-17 00:00: 00 [facility] Pilonidal cyst Pilonidal cyst Disease Active 10-17 00:00: 00 [facility] No known active problems No known active problems Disease [facility] Allergies, Adverse Reactions, Alerts Allergy Name Allergy Type Status Severity Reaction(s) Onset Date Inactive Date Treating Clinician Comments Source Cat Dander Propensi ty to adverse reaction s Active Hives 10-17 00:00: 00 [facility] CAT DANDER DRUG INGREDI Active Hives 10-17 00:00: 00 [facility] Penicill ins Propensi ty to adverse reaction s Active Hives 02-15 00:00: 00 [facility] PENICILL INS Drug Class Active Hives 02-15 00:00: 00 [facility] Penicill ins Propensi ty to adverse reaction s Active Hives 02-15 00:00: 00 [facility] Social History Social Habit Start Date Stop Date Quantity Comments Source Gender identity [facility] Sexual orientation [facility] History of tobacco use Cigarette Smoker [facility] History SDOH Alcohol Frequency [facility] History SDOH Alcohol Std Drinks [facility] History SDOH Alcohol Binge [facility] Exposure to SARS-CoV-2 (event) 2022-06-22 00:00:00 2022-07-02 12:36:00 Not sure [facility] History of Social function 2020-10-17 00:00:00 2020-10-17 00:00:00 [facility] Cigarettes smoked current (pack per day) - Reported 2020-10-17 00:00:00 2020-10-17 00:00:00 [facility] Tobacco use and exposure 2020-10-17 00:00:00 2020-10-17 00:00:00 Former smokeless tobacco user [facility] Alcohol intake 2020-10-17 00:00:00 2020-10-17 00:00:00 Current drinker of alcohol (finding) [facility] Tobacco Comment 2020-10-17 00:00:00 2020-10-17 00:00:00 8-10 cigarettes a day [facility] Alcohol Comment 2020-10-17 00:00:00 2020-10-17 00:00:00 socially [facility] Sex Assigned At 1999 00:00:00 2000 00:00:00 [facility] Smoking Status Start Date Stop Date Source Smokes tobacco daily 2020-10-17 00:00:00 [facility] Unknown if ever smoked [facility] Medications Ordered Medication Name Filled Medication Name Start Date Stop Date Current Medication? Ordering Clinician Indication Dosage Frequency Signature (SIG) Comments Components Source ketorolac (TORADOL) injection 30 mg 01-21 07:00: 00 01-21 06:05 :00 No 30mg 30 mg, Intramuscu lar, ONCE, 1 dose, On Fri01/21/23 at 0200, SHALOM [facility] iopamidol (ISOVUE 370-500 mL) injection 80 mL 11-27 07:15: 00 11-27 06:24 :00 No [id number] 80mL 80 mL, Intravenou s, ONCE, 1 dose, On Fri11/27/22 at 0215, Routine [facility] NaCl 0.9% (NS) bolus infusion 1,000 mL 11-27 05:30: 00 11-27 06:58 :00 No 1000mL at 999 mL/hr, 1,000 mL, IV Infusion, ONCE, 1 dose, On Fri11/27/22 at 0030, STAT [facility] metoclopram shade HCl (REGLAN) injection 10 mg 11-27 04:30: 00 11-27 05:20 :00 No 10mg 10 mg, Slow IV Push, ONCE, 1 dose, On Fri11/26/22 at 2330, SHALOM [facility] metoclopram shade HCl 10 mg tablet 11-27 00:00: 00 Yes [id number] 10mg Take 1 tablet by mouth every 6 (six) hours. [facility] famotidine 20 mg tablet 11-27 00:00: 00 Yes [id number] 20mg Take 1 tablet by mouth in the morning and 1 tablet in the evening. [facility] metoclopram shade HCl 10 mg tablet 11-27 00:00: 00 Yes [id number] 10mg Take 1 tablet by mouth every 6 (six) hours. [facility] famotidine 20 mg tablet 11-27 00:00: 00 Yes [id number] 20mg Take 1 tablet by mouth in the morning and 1 tablet in the evening. [facility] metoclopram shade HCl 10 mg tablet 11-27 00:00: 00 Yes [id number] 10mg Take 1 tablet by mouth every 6 (six) hours. [facility] famotidine 20 mg tablet 11-27 00:00: 00 Yes [id number] 20mg Take 1 tablet by mouth in the morning and 1 tablet in the evening. [facility] metoclopram shade HCl 10 mg tablet 11-27 00:00: 00 Yes [id number] 10mg Take 1 tablet by mouth every 6 (six) hours. [facility] famotidine 20 mg tablet 11-27 00:00: 00 Yes [id number] 20mg Take 1 tablet by mouth in the morning and 1 tablet in the evening. [facility] metoclopram shade HCl 10 mg tablet 11-27 00:00: 00 Yes [id number] 10mg Take 1 tablet by mouth every 6 (six) hours. [facility] famotidine 20 mg tablet 11-27 00:00: 00 Yes [id number] 20mg Take 1 tablet by mouth in the morning and 1 tablet in the evening. [facility] ibuprofen (IBU) tablet 600 mg 07-02 18:30: 00 07-02 18:57 :00 No 600mg 600 mg, Oral, ONCE, 1 dose, On Fri07/02/22 at 1230, SHALOM [facility] clindamycin (CLEOCIN HCL) capsule 450 mg 09-13 08:00: 00 09-13 06:55 :00 No 450mg 450 mg, Oral, ONCE, 1 dose, On Fri09/13/21 at 0300, SHALOM
Re ason for Anti-Infec tive: Documented Infection< br>Documen jill Infection Site: Skin / Soft Tissue
Duration of Therapy: Other (see Comments)< br>Restric jill use approved by: ED PROVIDER<b r>Indicati on for Clindamyci n use: pilonidal cyst allergic to PCN [facility] clindamycin 150 mg capsule 09-13 00:00: 00 09-24 04:59 :00 No [id number] 450mg Take 3 capsules by mouth 3 (three) times daily for 10 days. [facility] norgestimat e-ethinyl estradioL (ORTHO TRI-CYCLEN, ,) 0.18/0.215/ 0.25 mg-35 mcg (28) tablet 11-07 00:00: 00 Yes [id number] 1{tbl} Take 1 tablet by mouth daily. [facility] norgestimat e-ethinyl estradioL (ORTHO TRI-CYCLEN, 28,) 0.18/0.215/ 0.25 mg-35 mcg (28) tablet 11-07 00:00: 00 Yes [id number] 1{tbl} Take 1 tablet by mouth daily. [facility] norgestimat e-ethinyl estradioL (ORTHO TRI-CYCLEN, 28,) 0.18/0.215/ 0.25 mg-35 mcg (28) tablet 11-07 00:00: 00 Yes [id number] 1{tbl} Take 1 tablet by mouth daily. [facility] norgestimat e-ethinyl estradioL (ORTHO TRI-CYCLEN, 28,) 0.18/0.215/ 0.25 mg-35 mcg (28) tablet 11-07 00:00: 00 Yes [id number] 1{tbl} Take 1 tablet by mouth daily. [facility] norgestimat e-ethinyl estradioL (ORTHO TRI-CYCLEN, 28,) 0.18/0.215/ 0.25 mg-35 mcg (28) tablet 11-07 00:00: 00 Yes [id number] 1{tbl} Take 1 tablet by mouth daily. [facility] norgestimat e-ethinyl estradioL (ORTHO TRI-CYCLEN, 28,) 0.18/0.215/ 0.25 mg-35 mcg (28) tablet 11-07 00:00: 00 Yes [id number] 1{tbl} Take 1 tablet by mouth daily. [facility] norgestimat e-ethinyl estradioL (ORTHO TRI-CYCLEN, 28,) 0.18/0.215/ 0.25 mg-35 mcg (28) tablet 11-07 00:00: 00 Yes [id number] 1{tbl} Take 1 tablet by mouth daily. [facility] norgestimat e-ethinyl estradioL (ORTHO TRI-CYCLEN, 28,) 0.18/0.215/ 0.25 mg-35 mcg (28) tablet 11-07 00:00: 00 Yes [id number] 1{tbl} Take 1 tablet by mouth daily. [facility] norgestimat e-ethinyl estradioL (ORTHO TRI-CYCLEN, 28,) 0.18/0.215/ 0.25 mg-35 mcg (28) tablet 11-07 00:00: 00 Yes [id number] 1{tbl} Take 1 tablet by mouth daily. [facility] norgestimat e-ethinyl estradioL (ORTHO TRI-CYCLEN, 28,) 0.18/0.215/ 0.25 mg-35 mcg (28) tablet 11-07 00:00: 00 Yes [id number] 1{tbl} Take 1 tablet by mouth daily. [facility] norgestimat e-ethinyl estradioL (ORTHO TRI-CYCLEN, 28,) 0.18/0.215/ 0.25 mg-35 mcg (28) tablet 11-07 00:00: 00 Yes [id number] 1{tbl} Take 1 tablet by mouth daily. [facility] norgestimat e-ethinyl estradioL (ORTHO TRI-CYCLEN, 28,) 0.18/0.215/ 0.25 mg-35 mcg (28) tablet 11-07 00:00: 00 Yes [id number] 1{tbl} Take 1 tablet by mouth daily. [facility] norgestimat e-ethinyl estradioL (ORTHO TRI-CYCLEN, 28,) 0.18/0.215/ 0.25 mg-35 mcg (28) tablet 11-07 00:00: 00 Yes [id number] 1{tbl} Take 1 tablet by mouth daily. [facility] norgestimat e-ethinyl estradioL (ORTHO TRI-CYCLEN, 28,) 0.18/0.215/ 0.25 mg-35 mcg (28) tablet 11-07 00:00: 00 Yes [id number] 1{tbl} Take 1 tablet by mouth daily. [facility] norgestimat e-ethinyl estradioL (ORTHO TRI-CYCLEN, 28,) 0.18/0.215/ 0.25 mg-35 mcg (28) tablet 11-07 00:00: 00 Yes [id number] 1{tbl} Take 1 tablet by mouth daily. [facility] norgestimat e-ethinyl estradioL (ORTHO TRI-CYCLEN, 28,) 0.18/0.215/ 0.25 mg-35 mcg (28) tablet 6-08 00:00: 00 Yes [id number] 1{tbl} Take 1 tablet by mouth daily. [facility] medroxyPROG ESTERone (PROVERA) 10 mg tablet 10-19 00:00: 00 10-30 04:59 :00 No [id number] 10mg Take 1 tablet by mouth daily for 10 days. [facility] medroxyPROG ESTERone (PROVERA) 10 mg tablet 10-19 00:00: 00 10-30 04:59 :00 No [id number] 10mg Take 1 tablet by mouth daily for 10 days. [facility] medroxyPROG ESTERone (PROVERA) 10 mg tablet 10-19 00:00: 00 10-30 04:59 :00 No [id number] 10mg Take 1 tablet by mouth daily for 10 days. [facility] medroxyPROG ESTERone (PROVERA) 10 mg tablet 10-19 00:00: 00 10-30 04:59 :00 No [id number] 10mg Take 1 tablet by mouth daily for 10 days. [facility] phentermine 37.5 mg capsule 10-17 18:21: 18 Yes 37.5mg Take 37.5 mg by mouth every morning. [facility] phentermine 37.5 mg capsule 10-17 18:21: 18 Yes 37.5mg Take 37.5 mg by mouth every morning. [facility] phentermine 37.5 mg capsule 10-17 18:21: 18 Yes 37.5mg Take 37.5 mg by mouth every morning. [facility] phentermine 37.5 mg capsule 10-17 18:21: 18 Yes 37.5mg Take 37.5 mg by mouth every morning. [facility] phentermine 37.5 mg capsule 10-17 18:21: 18 Yes 37.5mg Take 37.5 mg by mouth every morning. [facility] phentermine 37.5 mg capsule 10-17 18:21: 18 Yes 37.5mg Take 37.5 mg by mouth every morning. [facility] phentermine 37.5 mg capsule 10-17 18:21: 18 Yes 37.5mg Take 37.5 mg by mouth every morning. [facility] phentermine 37.5 mg capsule 10-17 18:21: 18 Yes 37.5mg Take 37.5 mg by mouth every morning. [facility] phentermine 37.5 mg capsule 10-17 18:21: 18 Yes 37.5mg Take 37.5 mg by mouth every morning. [facility] phentermine 37.5 mg capsule 10-17 18:21: 18 Yes 37.5mg Take 37.5 mg by mouth every morning. [facility] phentermine 37.5 mg capsule 10-17 18:21: 18 Yes 37.5mg Take 37.5 mg by mouth every morning. [facility] phentermine 37.5 mg capsule 10-17 18:21: 18 Yes 37.5mg Take 37.5 mg by mouth every morning. [facility] phentermine 37.5 mg capsule 10-17 18:21: 18 Yes 37.5mg Take 37.5 mg by mouth every morning. [facility] phentermine 37.5 mg capsule 10-17 18:21: 18 Yes 37.5mg Take 37.5 mg by mouth every morning. [facility] phentermine 37.5 mg capsule 10-17 18:21: 18 Yes 37.5mg Take 37.5 mg by mouth every morning. [facility] phentermine 37.5 mg capsule 10-17 18:21: 18 Yes 37.5mg Take 37.5 mg by mouth every morning. [facility] phentermine 37.5 mg capsule 10-17 18:21: 18 Yes 37.5mg Take 37.5 mg by mouth every morning. [facility] phentermine 37.5 mg capsule 10-17 18:21: 18 Yes 37.5mg Take 37.5 mg by mouth every morning. [facility] phentermine 37.5 mg capsule 10-17 18:21: 18 Yes 37.5mg Take 37.5 mg by mouth every morning. [facility] phentermine 37.5 mg capsule 10-17 13:21: 18 Yes 37.5mg Take 37.5 mg by mouth every morning. [facility] phentermine 37.5 mg capsule 10-17 13:21: 18 Yes 37.5mg Take 37.5 mg by mouth every morning. [facility] phentermine 37.5 mg capsule 10-17 13:21: 18 Yes 37.5mg Take 37.5 mg by mouth every morning. [facility] phentermine 37.5 mg capsule 10-17 13:21: 18 Yes 37.5mg Take 37.5 mg by mouth every morning. [facility] phentermine 37.5 mg capsule 10-17 13:21: 18 Yes 37.5mg Take 37.5 mg by mouth every morning. [facility] phentermine 37.5 mg capsule 10-17 13:21: 18 Yes 37.5mg Take 37.5 mg by mouth every morning. [facility] phentermine 37.5 mg capsule 10-17 13:21: 18 Yes 37.5mg Take 37.5 mg by mouth every morning. [facility] phentermine 37.5 mg capsule 10-17 13:21: 18 Yes 37.5mg Take 37.5 mg by mouth every morning. [facility] phentermine 37.5 mg capsule 10-17 13:21: 18 Yes 37.5mg Take 37.5 mg by mouth every morning. [facility] phentermine 37.5 mg capsule 10-17 13:21: 18 Yes 37.5mg Take 37.5 mg by mouth every morning. [facility] phentermine 37.5 mg capsule 10-17 13:21: 18 Yes 37.5mg Take 37.5 mg by mouth every morning. [facility] phentermine 37.5 mg capsule 10-17 13:21: 18 Yes 37.5mg Take 37.5 mg by mouth every morning. [facility] phentermine 37.5 mg capsule 10-17 13:21: 18 Yes 37.5mg Take 37.5 mg by mouth every morning. [facility] ketorolac (TORADOL) injection 30 mg 08-09 05:45: 00 08-09 05:42 :00 No 30mg 30 mg, Slow IV Push, ONCE, 1 dose, [facility] 08/08/20 at 2345, [facility] Restricted medication : MORENA BENTON [facility] sulfamethox azole-trime thoprim (BACTRIM DS) 800-160 mg per tablet 02-15 00:00: 00 Yes 2{tbl} Take 2 tablets by mouth 2 (two) times daily. [facility] traMADOL (ULTRAM) 50 mg tablet 02-15 00:00: 00 Yes 50mg Take 1-2 tablets by mouth every 8 (eight) hours as needed (severe pain, alternate with ibuprofen) . [facility] sulfamethox azole-trime thoprim (BACTRIM DS) 800-160 mg per tablet 02-15 00:00: 00 Yes 2{tbl} Take 2 tablets by mouth 2 (two) times daily. [facility] traMADOL (ULTRAM) 50 mg tablet 02-15 00:00: 00 Yes 50mg Take 1-2 tablets by mouth every 8 (eight) hours as needed (severe pain, alternate with ibuprofen) . [facility] sulfamethox azole-trime thoprim (BACTRIM DS) 800-160 mg per tablet 02-15 00:00: 00 Yes 2{tbl} Take 2 tablets by mouth 2 (two) times daily. [facility] traMADOL (ULTRAM) 50 mg tablet 02-15 00:00: 00 Yes 50mg Take 1-2 tablets by mouth every 8 (eight) hours as needed (severe pain, alternate with ibuprofen) . [facility] sulfamethox azole-trime thoprim (BACTRIM DS) 800-160 mg per tablet 02-15 00:00: 00 Yes 2{tbl} Take 2 tablets by mouth 2 (two) times daily. [facility] traMADOL (ULTRAM) 50 mg tablet 02-15 00:00: 00 Yes 50mg Take 1-2 tablets by mouth every 8 (eight) hours as needed (severe pain, alternate with ibuprofen) . [facility] sulfamethox azole-trime thoprim (BACTRIM DS) 800-160 mg per tablet 02-15 00:00: 00 10-17 00:00 :00 No 2{tbl} Take 2 tablets by mouth 2 (two) times daily. [facility] traMADOL (ULTRAM) 50 mg tablet 02-15 00:00: 00 10-17 00:00 :00 No 50mg Take 1-2 tablets by mouth every 8 (eight) hours as needed (severe pain, alternate with ibuprofen) . [facility] sulfamethox azole-trime thoprim (BACTRIM DS) 800-160 mg per tablet 02-15 00:00: 00 10-17 00:00 :00 No 2{tbl} Take 2 tablets by mouth 2 (two) times daily. [facility] traMADOL (ULTRAM) 50 mg tablet 02-15 00:00: 00 10-17 00:00 :00 No 50mg Take 1-2 tablets by mouth every 8 (eight) hours as needed (severe pain, alternate with ibuprofen) . [facility] Immunizations Ordered Immunization Name Filled Immunization Name Date Status Comments Source HPV9 2020-10-17 00:00:00 Completed [facility] HPV9 2020-10-17 00:00:00 Completed [facility] HPV9 2020-10-17 00:00:00 Completed [facility] HPV9 2020-10-17 00:00:00 Completed [facility] HPV9 2020-10-17 00:00:00 Completed [facility] HPV9 2020-10-17 00:00:00 Completed [facility] HPV9 2020-10-17 00:00:00 Completed [facility] HPV9 2020-10-17 00:00:00 Completed [facility] HPV9 2020-10-17 00:00:00 Completed [facility] HPV9 2020-10-17 00:00:00 Completed [facility] HPV9 2020-10-17 00:00:00 Completed [facility] HPV9 2020-10-17 00:00:00 Completed [facility] HPV9 2020-10-17 00:00:00 Completed [facility] HPV9 2020-10-17 00:00:00 Completed [facility] HPV9 2020-10-17 00:00:00 Completed [facility] HPV9 2020-10-17 00:00:00 Completed [facility] HPV9 2020-10-17 00:00:00 Completed [facility] HPV9 2020-10-17 00:00:00 Completed [facility] HPV9 2020-10-17 00:00:00 Completed [facility] HPV9 2020-10-17 00:00:00 Completed [facility] HPV9 2020-10-17 00:00:00 Completed [facility] HPV9 2020-10-17 00:00:00 Completed [facility] HPV9 2020-10-17 00:00:00 Completed [facility] HPV9 2020-10-17 00:00:00 Completed [facility] HPV9 2020-10-17 00:00:00 Completed [facility] HPV9 2020-10-17 00:00:00 Completed [facility] HPV9 2020-10-17 00:00:00 Completed [facility] HPV 2018-09-15 00:00:00 Completed [facility] Meningococcal Vaccine 2018-09-15 00:00:00 Completed [facility] HPV 2018-09-15 00:00:00 Completed [facility] Meningococcal Vaccine 2018-09-15 00:00:00 Completed [facility] HPV 2018-09-15 00:00:00 Completed [facility] Meningococcal Vaccine 2018-09-15 00:00:00 Completed [facility] HPV 2018-09-15 00:00:00 Completed [facility] Meningococcal Vaccine 2018-09-15 00:00:00 Completed [facility] HPV 2018-09-15 00:00:00 Completed [facility] Meningococcal Vaccine 2018-09-15 00:00:00 Completed [facility] HPV 2018-09-15 00:00:00 Completed [facility] Meningococcal Vaccine 2018-09-15 00:00:00 Completed [facility] HPV 2018-09-15 00:00:00 Completed [facility] Meningococcal Vaccine 2018-09-15 00:00:00 Completed [facility] HPV 2018-09-15 00:00:00 Completed [facility] Meningococcal Vaccine 2018-09-15 00:00:00 Completed [facility] HPV 2018-09-15 00:00:00 Completed [facility] Meningococcal Vaccine 2018-09-15 00:00:00 Completed [facility] HPV 2018-09-15 00:00:00 Completed [facility] Meningococcal Vaccine 2018-09-15 00:00:00 Completed [facility] HPV 2018-09-15 00:00:00 Completed [facility] Meningococcal Vaccine 2018-09-15 00:00:00 Completed [facility] HPV 2018-09-15 00:00:00 Completed [facility] Meningococcal Vaccine 2018-09-15 00:00:00 Completed [facility] HPV 2018-09-15 00:00:00 Completed [facility] Meningococcal Vaccine 2018-09-15 00:00:00 Completed [facility] HPV 2018-09-15 00:00:00 Completed [facility] Meningococcal Vaccine 2018-09-15 00:00:00 Completed [facility] HPV 2018-09-15 00:00:00 Completed [facility] Meningococcal Vaccine 2018-09-15 00:00:00 Completed [facility] HPV 2018-09-15 00:00:00 Completed [facility] Meningococcal Vaccine 2018-09-15 00:00:00 Completed [facility] HPV 2018-09-15 00:00:00 Completed [facility] Meningococcal Vaccine 2018-09-15 00:00:00 Completed [facility] HPV 2018-09-15 00:00:00 Completed [facility] Meningococcal Vaccine 2018-09-15 00:00:00 Completed [facility] HPV 2018-09-15 00:00:00 Completed [facility] Meningococcal Vaccine 2018-09-15 00:00:00 Completed [facility] HPV 2018-09-15 00:00:00 Completed [facility] Meningococcal Vaccine 2018-09-15 00:00:00 Completed [facility] HPV 2018-09-15 00:00:00 Completed [facility] Meningococcal Vaccine 2018-09-15 00:00:00 Completed [facility] HPV 2018-09-15 00:00:00 Completed [facility] Meningococcal Vaccine 2018-09-15 00:00:00 Completed [facility] HPV 2018-09-15 00:00:00 Completed [facility] Meningococcal Vaccine 2018-09-15 00:00:00 Completed [facility] HPV 2018-09-15 00:00:00 Completed [facility] Meningococcal Vaccine 2018-09-15 00:00:00 Completed [facility] HPV 2018-09-15 00:00:00 Completed [facility] Meningococcal Vaccine 2018-09-15 00:00:00 Completed [facility] HPV 2018-09-15 00:00:00 Completed [facility] Meningococcal Vaccine 2018-09-15 00:00:00 Completed [facility] HPV 2018-09-15 00:00:00 Completed [facility] Meningococcal Vaccine 2018-09-15 00:00:00 Completed [facility] HEPATITIS A 2012-01-21 00:00:00 Completed [facility] Meningococcal Vaccine 2012-01-21 00:00:00 Completed [facility] TDAP 2012-01-21 00:00:00 Completed [facility] Varicella (varivax)(chicken pox) 2012-01-21 00:00:00 Completed [facility] HEPATITIS A 2012-01-21 00:00:00 Completed [facility] Meningococcal Vaccine 2012-01-21 00:00:00 Completed [facility] TDAP 2012-01-21 00:00:00 Completed [facility] Varicella (varivax)(chicken pox) 2012-01-21 00:00:00 Completed [facility] HEPATITIS A 2012-01-21 00:00:00 Completed [facility] Meningococcal Vaccine 2012-01-21 00:00:00 Completed [facility] TDAP 2012-01-21 00:00:00 Completed [facility] Varicella (varivax)(chicken pox) 2012-01-21 00:00:00 Completed [facility] HEPATITIS A 2012-01-21 00:00:00 Completed [facility] Meningococcal Vaccine 2012-01-21 00:00:00 Completed [facility] TDAP 2012-01-21 00:00:00 Completed [facility] Varicella (varivax)(chicken pox) 2012-01-21 00:00:00 Completed [facility] HEPATITIS A 2012-01-21 00:00:00 Completed [facility] Meningococcal Vaccine 2012-01-21 00:00:00 Completed [facility] TDAP 2012-01-21 00:00:00 Completed [facility] Varicella (varivax)(chicken pox) 2012-01-21 00:00:00 Completed [facility] HEPATITIS A 2012-01-21 00:00:00 Completed [facility] Meningococcal Vaccine 2012-01-21 00:00:00 Completed [facility] TDAP 2012-01-21 00:00:00 Completed [facility] Varicella (varivax)(chicken pox) 2012-01-21 00:00:00 Completed [facility] HEPATITIS A 2012-01-21 00:00:00 Completed [facility] Meningococcal Vaccine 2012-01-21 00:00:00 Completed [facility] TDAP 2012-01-21 00:00:00 Completed [facility] Varicella (varivax)(chicken pox) 2012-01-21 00:00:00 Completed [facility] HEPATITIS A 2012-01-21 00:00:00 Completed [facility] Meningococcal Vaccine 2012-01-21 00:00:00 Completed [facility] TDAP 2012-01-21 00:00:00 Completed [facility] Varicella (varivax)(chicken pox) 2012-01-21 00:00:00 Completed [facility] HEPATITIS A 2012-01-21 00:00:00 Completed [facility] Meningococcal Vaccine 2012-01-21 00:00:00 Completed [facility] TDAP 2012-01-21 00:00:00 Completed [facility] Varicella (varivax)(chicken pox) 2012-01-21 00:00:00 Completed [facility] HEPATITIS A 2012-01-21 00:00:00 Completed [facility] Meningococcal Vaccine 2012-01-21 00:00:00 Completed [facility] TDAP 2012-01-21 00:00:00 Completed [facility] Varicella (varivax)(chicken pox) 2012-01-21 00:00:00 Completed [facility] HEPATITIS A 2012-01-21 00:00:00 Completed [facility] Meningococcal Vaccine 2012-01-21 00:00:00 Completed [facility] TDAP 2012-01-21 00:00:00 Completed [facility] Varicella (varivax)(chicken pox) 2012-01-21 00:00:00 Completed [facility] HEPATITIS A 2012-01-21 00:00:00 Completed [facility] Meningococcal Vaccine 2012-01-21 00:00:00 Completed [facility] TDAP 2012-01-21 00:00:00 Completed [facility] Varicella (varivax)(chicken pox) 2012-01-21 00:00:00 Completed [facility] HEPATITIS A 2012-01-21 00:00:00 Completed [facility] Meningococcal Vaccine 2012-01-21 00:00:00 Completed [facility] TDAP 2012-01-21 00:00:00 Completed [facility] Varicella (varivax)(chicken pox) 2012-01-21 00:00:00 Completed [facility] HEPATITIS A 2012-01-21 00:00:00 Completed [facility] Meningococcal Vaccine 2012-01-21 00:00:00 Completed [facility] TDAP 2012-01-21 00:00:00 Completed [facility] Varicella (varivax)(chicken pox) 2012-01-21 00:00:00 Completed [facility] HEPATITIS A 2012-01-21 00:00:00 Completed [facility] Meningococcal Vaccine 2012-01-21 00:00:00 Completed [facility] TDAP 2012-01-21 00:00:00 Completed [facility] Varicella (varivax)(chicken pox) 2012-01-21 00:00:00 Completed [facility] HEPATITIS A 2012-01-21 00:00:00 Completed [facility] Meningococcal Vaccine 2012-01-21 00:00:00 Completed [facility] TDAP 2012-01-21 00:00:00 Completed [facility] Varicella (varivax)(chicken pox) 2012-01-21 00:00:00 Completed [facility] HEPATITIS A 2012-01-21 00:00:00 Completed [facility] Meningococcal Vaccine 2012-01-21 00:00:00 Completed [facility] TDAP 2012-01-21 00:00:00 Completed [facility] Varicella (varivax)(chicken pox) 2012-01-21 00:00:00 Completed [facility] HEPATITIS A 2012-01-21 00:00:00 Completed [facility] Meningococcal Vaccine 2012-01-21 00:00:00 Completed [facility] TDAP 2012-01-21 00:00:00 Completed [facility] Varicella (varivax)(chicken pox) 2012-01-21 00:00:00 Completed [facility] HEPATITIS A 2012-01-21 00:00:00 Completed [facility] Meningococcal Vaccine 2012-01-21 00:00:00 Completed [facility] TDAP 2012-01-21 00:00:00 Completed [facility] Varicella (varivax)(chicken pox) 2012-01-21 00:00:00 Completed [facility] HEPATITIS A 2012-01-21 00:00:00 Completed [facility] Meningococcal Vaccine 2012-01-21 00:00:00 Completed [facility] TDAP 2012-01-21 00:00:00 Completed [facility] Varicella (varivax)(chicken pox) 2012-01-21 00:00:00 Completed [facility] HEPATITIS A 2012-01-21 00:00:00 Completed [facility] Meningococcal Vaccine 2012-01-21 00:00:00 Completed [facility] TDAP 2012-01-21 00:00:00 Completed [facility] Varicella (varivax)(chicken pox) 2012-01-21 00:00:00 Completed [facility] HEPATITIS A 2012-01-21 00:00:00 Completed [facility] Meningococcal Vaccine 2012-01-21 00:00:00 Completed [facility] TDAP 2012-01-21 00:00:00 Completed [facility] Varicella (varivax)(chicken pox) 2012-01-21 00:00:00 Completed [facility] HEPATITIS A 2012-01-21 00:00:00 Completed [facility] Meningococcal Vaccine 2012-01-21 00:00:00 Completed [facility] TDAP 2012-01-21 00:00:00 Completed [facility] Varicella (varivax)(chicken pox) 2012-01-21 00:00:00 Completed [facility] HEPATITIS A 2012-01-21 00:00:00 Completed [facility] Meningococcal Vaccine 2012-01-21 00:00:00 Completed [facility] TDAP 2012-01-21 00:00:00 Completed [facility] Varicella (varivax)(chicken pox) 2012-01-21 00:00:00 Completed [facility] HEPATITIS A 2012-01-21 00:00:00 Completed [facility] Meningococcal Vaccine 2012-01-21 00:00:00 Completed [facility] TDAP 2012-01-21 00:00:00 Completed [facility] Varicella (varivax)(chicken pox) 2012-01-21 00:00:00 Completed [facility] HEPATITIS A 2012-01-21 00:00:00 Completed [facility] Meningococcal Vaccine 2012-01-21 00:00:00 Completed [facility] TDAP 2012-01-21 00:00:00 Completed [facility] Varicella (varivax)(chicken pox) 2012-01-21 00:00:00 Completed [facility] HEPATITIS A 2012-01-21 00:00:00 Completed [facility] Meningococcal Vaccine 2012-01-21 00:00:00 Completed [facility] TDAP 2012-01-21 00:00:00 Completed [facility] Varicella (varivax)(chicken pox) 2012-01-21 00:00:00 Completed [facility] MMR 2005-01-08 00:00:00 Completed [facility] MMR 2005-01-08 00:00:00 Completed [facility] MMR 2005-01-08 00:00:00 Completed [facility] MMR 2005-01-08 00:00:00 Completed [facility] MMR 2005-01-08 00:00:00 Completed [facility] MMR 2005-01-08 00:00:00 Completed [facility] MMR 2005-01-08 00:00:00 Completed [facility] MMR 2005-01-08 00:00:00 Completed [facility] MMR 2005-01-08 00:00:00 Completed [facility] MMR 2005-01-08 00:00:00 Completed [facility] MMR 2005-01-08 00:00:00 Completed [facility] MMR 2005-01-08 00:00:00 Completed [facility] MMR 2005-01-08 00:00:00 Completed [facility] MMR 2005-01-08 00:00:00 Completed [facility] MMR 2005-01-08 00:00:00 Completed [facility] MMR 2005-01-08 00:00:00 Completed [facility] MMR 2005-01-08 00:00:00 Completed [facility] MMR 2005-01-08 00:00:00 Completed [facility] MMR 2005-01-08 00:00:00 Completed [facility] MMR 2005-01-08 00:00:00 Completed [facility] MMR 2005-01-08 00:00:00 Completed [facility] MMR 2005-01-08 00:00:00 Completed [facility] MMR 2005-01-08 00:00:00 Completed [facility] MMR 2005-01-08 00:00:00 Completed [facility] MMR 2005-01-08 00:00:00 Completed [facility] MMR 2005-01-08 00:00:00 Completed [facility] MMR 2005-01-08 00:00:00 Completed [facility] DTAP 2004-12-07 00:00:00 Completed [facility] MMR 2004-12-07 00:00:00 Completed [facility] Pneumococcal 13 Conjugate, PCV13 (Prevnar 13) 2004-12-07 00:00:00 Completed [facility] Polio (IPV/OPV) 2004-12-07 00:00:00 Completed [facility] Varicella (varivax)(chicken pox) 2004-12-07 00:00:00 Completed [facility] DTAP 2004-12-07 00:00:00 Completed [facility] MMR 2004-12-07 00:00:00 Completed [facility] Pneumococcal 13 Conjugate, PCV13 (Prevnar 13) 2004-12-07 00:00:00 Completed [facility] Polio (IPV/OPV) 2004-12-07 00:00:00 Completed [facility] Varicella (varivax)(chicken pox) 2004-12-07 00:00:00 Completed [facility] DTAP 2004-12-07 00:00:00 Completed [facility] MMR 2004-12-07 00:00:00 Completed [facility] Pneumococcal 13 Conjugate, PCV13 (Prevnar 13) 2004-12-07 00:00:00 Completed [facility] Polio (IPV/OPV) 2004-12-07 00:00:00 Completed [facility] Varicella (varivax)(chicken pox) 2004-12-07 00:00:00 Completed [facility] DTAP 2004-12-07 00:00:00 Completed [facility] MMR 2004-12-07 00:00:00 Completed [facility] Pneumococcal 13 Conjugate, PCV13 (Prevnar 13) 2004-12-07 00:00:00 Completed [facility] Polio (IPV/OPV) 2004-12-07 00:00:00 Completed [facility] Varicella (varivax)(chicken pox) 2004-12-07 00:00:00 Completed [facility] DTAP 2004-12-07 00:00:00 Completed [facility] MMR 2004-12-07 00:00:00 Completed [facility] Pneumococcal 13 Conjugate, PCV13 (Prevnar 13) 2004-12-07 00:00:00 Completed [facility] Polio (IPV/OPV) 2004-12-07 00:00:00 Completed [facility] Varicella (varivax)(chicken pox) 2004-12-07 00:00:00 Completed [facility] DTAP 2004-12-07 00:00:00 Completed [facility] MMR 2004-12-07 00:00:00 Completed [facility] Pneumococcal 13 Conjugate, PCV13 (Prevnar 13) 2004-12-07 00:00:00 Completed [facility] Polio (IPV/OPV) 2004-12-07 00:00:00 Completed [facility] Varicella (varivax)(chicken pox) 2004-12-07 00:00:00 Completed [facility] DTAP 2004-12-07 00:00:00 Completed [facility] MMR 2004-12-07 00:00:00 Completed [facility] Pneumococcal 13 Conjugate, PCV13 (Prevnar 13) 2004-12-07 00:00:00 Completed [facility] Polio (IPV/OPV) 2004-12-07 00:00:00 Completed [facility] Varicella (varivax)(chicken pox) 2004-12-07 00:00:00 Completed [facility] DTAP 2004-12-07 00:00:00 Completed [facility] MMR 2004-12-07 00:00:00 Completed [facility] Pneumococcal 13 Conjugate, PCV13 (Prevnar 13) 2004-12-07 00:00:00 Completed [facility] Polio (IPV/OPV) 2004-12-07 00:00:00 Completed [facility] Varicella (varivax)(chicken pox) 2004-12-07 00:00:00 Completed [facility] DTAP 2004-12-07 00:00:00 Completed [facility] MMR 2004-12-07 00:00:00 Completed [facility] Pneumococcal 13 Conjugate, PCV13 (Prevnar 13) 2004-12-07 00:00:00 Completed [facility] Polio (IPV/OPV) 2004-12-07 00:00:00 Completed [facility] Varicella (varivax)(chicken pox) 2004-12-07 00:00:00 Completed [facility] DTAP 2004-12-07 00:00:00 Completed [facility] MMR 2004-12-07 00:00:00 Completed [facility] Pneumococcal 13 Conjugate, PCV13 (Prevnar 13) 2004-12-07 00:00:00 Completed [facility] Polio (IPV/OPV) 2004-12-07 00:00:00 Completed [facility] Varicella (varivax)(chicken pox) 2004-12-07 00:00:00 Completed [facility] DTAP 2004-12-07 00:00:00 Completed [facility] MMR 2004-12-07 00:00:00 Completed [facility] Pneumococcal 13 Conjugate, PCV13 (Prevnar 13) 2004-12-07 00:00:00 Completed [facility] Polio (IPV/OPV) 2004-12-07 00:00:00 Completed [facility] Varicella (varivax)(chicken pox) 2004-12-07 00:00:00 Completed [facility] DTAP 2004-12-07 00:00:00 Completed [facility] MMR 2004-12-07 00:00:00 Completed [facility] Pneumococcal 13 Conjugate, PCV13 (Prevnar 13) 2004-12-07 00:00:00 Completed [facility] Polio (IPV/OPV) 2004-12-07 00:00:00 Completed [facility] Varicella (varivax)(chicken pox) 2004-12-07 00:00:00 Completed [facility] DTAP 2004-12-07 00:00:00 Completed [facility] MMR 2004-12-07 00:00:00 Completed [facility] Pneumococcal 13 Conjugate, PCV13 (Prevnar 13) 2004-12-07 00:00:00 Completed [facility] Polio (IPV/OPV) 2004-12-07 00:00:00 Completed [facility] Varicella (varivax)(chicken pox) 2004-12-07 00:00:00 Completed [facility] DTAP 2004-12-07 00:00:00 Completed [facility] MMR 2004-12-07 00:00:00 Completed [facility] Pneumococcal 13 Conjugate, PCV13 (Prevnar 13) 2004-12-07 00:00:00 Completed [facility] Polio (IPV/OPV) 2004-12-07 00:00:00 Completed [facility] Varicella (varivax)(chicken pox) 2004-12-07 00:00:00 Completed [facility] DTAP 2004-12-07 00:00:00 Completed [facility] MMR 2004-12-07 00:00:00 Completed [facility] Pneumococcal 13 Conjugate, PCV13 (Prevnar 13) 2004-12-07 00:00:00 Completed [facility] Polio (IPV/OPV) 2004-12-07 00:00:00 Completed [facility] Varicella (varivax)(chicken pox) 2004-12-07 00:00:00 Completed [facility] DTAP 2004-12-07 00:00:00 Completed [facility] MMR 2004-12-07 00:00:00 Completed [facility] Pneumococcal 13 Conjugate, PCV13 (Prevnar 13) 2004-12-07 00:00:00 Completed [facility] Polio (IPV/OPV) 2004-12-07 00:00:00 Completed [facility] Varicella (varivax)(chicken pox) 2004-12-07 00:00:00 Completed [facility] DTAP 2004-12-07 00:00:00 Completed [facility] MMR 2004-12-07 00:00:00 Completed [facility] Pneumococcal 13 Conjugate, PCV13 (Prevnar 13) 2004-12-07 00:00:00 Completed [facility] Polio (IPV/OPV) 2004-12-07 00:00:00 Completed [facility] Varicella (varivax)(chicken pox) 2004-12-07 00:00:00 Completed [facility] DTAP 2004-12-07 00:00:00 Completed [facility] MMR 2004-12-07 00:00:00 Completed [facility] Pneumococcal 13 Conjugate, PCV13 (Prevnar 13) 2004-12-07 00:00:00 Completed [facility] Polio (IPV/OPV) 2004-12-07 00:00:00 Completed [facility] Varicella (varivax)(chicken pox) 2004-12-07 00:00:00 Completed [facility] DTAP 2004-12-07 00:00:00 Completed [facility] MMR 2004-12-07 00:00:00 Completed [facility] Pneumococcal 13 Conjugate, PCV13 (Prevnar 13) 2004-12-07 00:00:00 Completed [facility] Polio (IPV/OPV) 2004-12-07 00:00:00 Completed [facility] Varicella (varivax)(chicken pox) 2004-12-07 00:00:00 Completed [facility] DTAP 2004-12-07 00:00:00 Completed [facility] MMR 2004-12-07 00:00:00 Completed [facility] Pneumococcal 13 Conjugate, PCV13 (Prevnar 13) 2004-12-07 00:00:00 Completed [facility] Polio (IPV/OPV) 2004-12-07 00:00:00 Completed [facility] Varicella (varivax)(chicken pox) 2004-12-07 00:00:00 Completed [facility] DTAP 2004-12-07 00:00:00 Completed [facility] MMR 2004-12-07 00:00:00 Completed [facility] Pneumococcal 13 Conjugate, PCV13 (Prevnar 13) 2004-12-07 00:00:00 Completed [facility] Polio (IPV/OPV) 2004-12-07 00:00:00 Completed [facility] Varicella (varivax)(chicken pox) 2004-12-07 00:00:00 Completed [facility] DTAP 2004-12-07 00:00:00 Completed [facility] MMR 2004-12-07 00:00:00 Completed [facility] Pneumococcal 13 Conjugate, PCV13 (Prevnar 13) 2004-12-07 00:00:00 Completed [facility] Polio (IPV/OPV) 2004-12-07 00:00:00 Completed [facility] Varicella (varivax)(chicken pox) 2004-12-07 00:00:00 Completed [facility] DTAP 2004-12-07 00:00:00 Completed [facility] MMR 2004-12-07 00:00:00 Completed [facility] Pneumococcal 13 Conjugate, PCV13 (Prevnar 13) 2004-12-07 00:00:00 Completed [facility] Polio (IPV/OPV) 2004-12-07 00:00:00 Completed [facility] Varicella (varivax)(chicken pox) 2004-12-07 00:00:00 Completed [facility] DTAP 2004-12-07 00:00:00 Completed [facility] MMR 2004-12-07 00:00:00 Completed [facility] Pneumococcal 13 Conjugate, PCV13 (Prevnar 13) 2004-12-07 00:00:00 Completed [facility] Polio (IPV/OPV) 2004-12-07 00:00:00 Completed [facility] Varicella (varivax)(chicken pox) 2004-12-07 00:00:00 Completed [facility] DTAP 2004-12-07 00:00:00 Completed [facility] MMR 2004-12-07 00:00:00 Completed [facility] Pneumococcal 13 Conjugate, PCV13 (Prevnar 13) 2004-12-07 00:00:00 Completed [facility] Polio (IPV/OPV) 2004-12-07 00:00:00 Completed [facility] Varicella (varivax)(chicken pox) 2004-12-07 00:00:00 Completed [facility] DTAP 2004-12-07 00:00:00 Completed [facility] MMR 2004-12-07 00:00:00 Completed [facility] Pneumococcal 13 Conjugate, PCV13 (Prevnar 13) 2004-12-07 00:00:00 Completed [facility] Polio (IPV/OPV) 2004-12-07 00:00:00 Completed [facility] Varicella (varivax)(chicken pox) 2004-12-07 00:00:00 Completed [facility] DTAP 2004-12-07 00:00:00 Completed [facility] MMR 2004-12-07 00:00:00 Completed [facility] Pneumococcal 13 Conjugate, PCV13 (Prevnar 13) 2004-12-07 00:00:00 Completed [facility] Polio (IPV/OPV) 2004-12-07 00:00:00 Completed [facility] Varicella (varivax)(chicken pox) 2004-12-07 00:00:00 Completed [facility] DTAP 2001-03-04 00:00:00 Completed [facility] HIB 3 Dose Schedule 2001-03-04 00:00:00 Completed [facility] Hep B, Adol or Pedi Dosage 2001-03-04 00:00:00 Completed [facility] Polio (IPV/OPV) 2001-03-04 00:00:00 Completed [facility] DTAP 2001-03-04 00:00:00 Completed [facility] HIB 3 Dose Schedule 2001-03-04 00:00:00 Completed [facility] Hep B, Adol or Pedi Dosage 2001-03-04 00:00:00 Completed [facility] Polio (IPV/OPV) 2001-03-04 00:00:00 Completed [facility] DTAP 2001-03-04 00:00:00 Completed [facility] HIB 3 Dose Schedule 2001-03-04 00:00:00 Completed [facility] Hep B, Adol or Pedi Dosage 2001-03-04 00:00:00 Completed [facility] Polio (IPV/OPV) 2001-03-04 00:00:00 Completed [facility] DTAP 2001-03-04 00:00:00 Completed [facility] HIB 3 Dose Schedule 2001-03-04 00:00:00 Completed [facility] Hep B, Adol or Pedi Dosage 2001-03-04 00:00:00 Completed [facility] Polio (IPV/OPV) 2001-03-04 00:00:00 Completed [facility] DTAP 2001-03-04 00:00:00 Completed [facility] HIB 3 Dose Schedule 2001-03-04 00:00:00 Completed [facility] Hep B, Adol or Pedi Dosage 2001-03-04 00:00:00 Completed [facility] Polio (IPV/OPV) 2001-03-04 00:00:00 Completed [facility] DTAP 2001-03-04 00:00:00 Completed [facility] HIB 3 Dose Schedule 2001-03-04 00:00:00 Completed [facility] Hep B, Adol or Pedi Dosage 2001-03-04 00:00:00 Completed [facility] Polio (IPV/OPV) 2001-03-04 00:00:00 Completed [facility] DTAP 2001-03-04 00:00:00 Completed [facility] HIB 3 Dose Schedule 2001-03-04 00:00:00 Completed [facility] Hep B, Adol or Pedi Dosage 2001-03-04 00:00:00 Completed [facility] Polio (IPV/OPV) 2001-03-04 00:00:00 Completed [facility] DTAP 2001-03-04 00:00:00 Completed [facility] HIB 3 Dose Schedule 2001-03-04 00:00:00 Completed [facility] Hep B, Adol or Pedi Dosage 2001-03-04 00:00:00 Completed [facility] Polio (IPV/OPV) 2001-03-04 00:00:00 Completed [facility] DTAP 2001-03-04 00:00:00 Completed [facility] HIB 3 Dose Schedule 2001-03-04 00:00:00 Completed [facility] Hep B, Adol or Pedi Dosage 2001-03-04 00:00:00 Completed [facility] Polio (IPV/OPV) 2001-03-04 00:00:00 Completed [facility] DTAP 2001-03-04 00:00:00 Completed [facility] HIB 3 Dose Schedule 2001-03-04 00:00:00 Completed [facility] Hep B, Adol or Pedi Dosage 2001-03-04 00:00:00 Completed [facility] Polio (IPV/OPV) 2001-03-04 00:00:00 Completed [facility] DTAP 2001-03-04 00:00:00 Completed [facility] HIB 3 Dose Schedule 2001-03-04 00:00:00 Completed [facility] Hep B, Adol or Pedi Dosage 2001-03-04 00:00:00 Completed [facility] Polio (IPV/OPV) 2001-03-04 00:00:00 Completed [facility] DTAP 2001-03-04 00:00:00 Completed [facility] HIB 3 Dose Schedule 2001-03-04 00:00:00 Completed [facility] Hep B, Adol or Pedi Dosage 2001-03-04 00:00:00 Completed [facility] Polio (IPV/OPV) 2001-03-04 00:00:00 Completed [facility] DTAP 2001-03-04 00:00:00 Completed [facility] HIB 3 Dose Schedule 2001-03-04 00:00:00 Completed [facility] Hep B, Adol or Pedi Dosage 2001-03-04 00:00:00 Completed [facility] Polio (IPV/OPV) 2001-03-04 00:00:00 Completed [facility] DTAP 2001-03-04 00:00:00 Completed [facility] HIB 3 Dose Schedule 2001-03-04 00:00:00 Completed [facility] Hep B, Adol or Pedi Dosage 2001-03-04 00:00:00 Completed [facility] Polio (IPV/OPV) 2001-03-04 00:00:00 Completed [facility] DTAP 2001-03-04 00:00:00 Completed [facility] HIB 3 Dose Schedule 2001-03-04 00:00:00 Completed [facility] Hep B, Adol or Pedi Dosage 2001-03-04 00:00:00 Completed [facility] Polio (IPV/OPV) 2001-03-04 00:00:00 Completed [facility] DTAP 2001-03-04 00:00:00 Completed [facility] HIB 3 Dose Schedule 2001-03-04 00:00:00 Completed [facility] Hep B, Adol or Pedi Dosage 2001-03-04 00:00:00 Completed [facility] Polio (IPV/OPV) 2001-03-04 00:00:00 Completed [facility] DTAP 2001-03-04 00:00:00 Completed [facility] HIB 3 Dose Schedule 2001-03-04 00:00:00 Completed [facility] Hep B, Adol or Pedi Dosage 2001-03-04 00:00:00 Completed [facility] Polio (IPV/OPV) 2001-03-04 00:00:00 Completed [facility] DTAP 2001-03-04 00:00:00 Completed [facility] HIB 3 Dose Schedule 2001-03-04 00:00:00 Completed [facility] Hep B, Adol or Pedi Dosage 2001-03-04 00:00:00 Completed [facility] Polio (IPV/OPV) 2001-03-04 00:00:00 Completed [facility] DTAP 2001-03-04 00:00:00 Completed [facility] HIB 3 Dose Schedule 2001-03-04 00:00:00 Completed [facility] Hep B, Adol or Pedi Dosage 2001-03-04 00:00:00 Completed [facility] Polio (IPV/OPV) 2001-03-04 00:00:00 Completed [facility] DTAP 2001-03-04 00:00:00 Completed [facility] HIB 3 Dose Schedule 2001-03-04 00:00:00 Completed [facility] Hep B, Adol or Pedi Dosage 2001-03-04 00:00:00 Completed [facility] Polio (IPV/OPV) 2001-03-04 00:00:00 Completed [facility] DTAP 2001-03-04 00:00:00 Completed [facility] HIB 3 Dose Schedule 2001-03-04 00:00:00 Completed [facility] Hep B, Adol or Pedi Dosage 2001-03-04 00:00:00 Completed [facility] Polio (IPV/OPV) 2001-03-04 00:00:00 Completed [facility] DTAP 2001-03-04 00:00:00 Completed [facility] HIB 3 Dose Schedule 2001-03-04 00:00:00 Completed [facility] Hep B, Adol or Pedi Dosage 2001-03-04 00:00:00 Completed [facility] Polio (IPV/OPV) 2001-03-04 00:00:00 Completed [facility] DTAP 2001-03-04 00:00:00 Completed [facility] HIB 3 Dose Schedule 2001-03-04 00:00:00 Completed [facility] Hep B, Adol or Pedi Dosage 2001-03-04 00:00:00 Completed [facility] Polio (IPV/OPV) 2001-03-04 00:00:00 Completed [facility] DTAP 2001-03-04 00:00:00 Completed [facility] HIB 3 Dose Schedule 2001-03-04 00:00:00 Completed [facility] Hep B, Adol or Pedi Dosage 2001-03-04 00:00:00 Completed [facility] Polio (IPV/OPV) 2001-03-04 00:00:00 Completed [facility] DTAP 2001-03-04 00:00:00 Completed [facility] HIB 3 Dose Schedule 2001-03-04 00:00:00 Completed [facility] Hep B, Adol or Pedi Dosage 2001-03-04 00:00:00 Completed [facility] Polio (IPV/OPV) 2001-03-04 00:00:00 Completed [facility] DTAP 2001-03-04 00:00:00 Completed [facility] HIB 3 Dose Schedule 2001-03-04 00:00:00 Completed [facility] Hep B, Adol or Pedi Dosage 2001-03-04 00:00:00 Completed [facility] Polio (IPV/OPV) 2001-03-04 00:00:00 Completed [facility] DTAP 2001-03-04 00:00:00 Completed [facility] HIB 3 Dose Schedule 2001-03-04 00:00:00 Completed [facility] Hep B, Adol or Pedi Dosage 2001-03-04 00:00:00 Completed [facility] Polio (IPV/OPV) 2001-03-04 00:00:00 Completed [facility] Hep B, Adol or Pedi Dosage 2000-03-05 00:00:00 Completed [facility] Polio (IPV/OPV) 2000-03-05 00:00:00 Completed [facility] DTAP 2000-03-05 00:00:00 Completed [facility] HIB 3 Dose Schedule 2000-03-05 00:00:00 Completed [facility] Hep B, Adol or Pedi Dosage 2000-03-05 00:00:00 Completed [facility] Polio (IPV/OPV) 2000-03-05 00:00:00 Completed [facility] DTAP 2000-03-05 00:00:00 Completed [facility] HIB 3 Dose Schedule 2000-03-05 00:00:00 Completed [facility] Hep B, Adol or Pedi Dosage 2000-03-05 00:00:00 Completed [facility] Polio (IPV/OPV) 2000-03-05 00:00:00 Completed [facility] DTAP 2000-03-05 00:00:00 Completed [facility] HIB 3 Dose Schedule 2000-03-05 00:00:00 Completed [facility] Hep B, Adol or Pedi Dosage 2000-03-05 00:00:00 Completed [facility] Polio (IPV/OPV) 2000-03-05 00:00:00 Completed [facility] DTAP 2000-03-05 00:00:00 Completed [facility] HIB 3 Dose Schedule 2000-03-05 00:00:00 Completed [facility] Hep B, Adol or Pedi Dosage 2000-03-05 00:00:00 Completed [facility] Polio (IPV/OPV) 2000-03-05 00:00:00 Completed [facility] DTAP 2000-03-05 00:00:00 Completed [facility] HIB 3 Dose Schedule 2000-03-05 00:00:00 Completed [facility] Hep B, Adol or Pedi Dosage 2000-03-05 00:00:00 Completed [facility] Polio (IPV/OPV) 2000-03-05 00:00:00 Completed [facility] DTAP 2000-03-05 00:00:00 Completed [facility] HIB 3 Dose Schedule 2000-03-05 00:00:00 Completed [facility] Hep B, Adol or Pedi Dosage 2000-03-05 00:00:00 Completed [facility] Polio (IPV/OPV) 2000-03-05 00:00:00 Completed [facility] DTAP 2000-03-05 00:00:00 Completed [facility] HIB 3 Dose Schedule 2000-03-05 00:00:00 Completed [facility] Hep B, Adol or Pedi Dosage 2000-03-05 00:00:00 Completed [facility] Polio (IPV/OPV) 2000-03-05 00:00:00 Completed [facility] DTAP 2000-03-05 00:00:00 Completed [facility] HIB 3 Dose Schedule 2000-03-05 00:00:00 Completed [facility] Hep B, Adol or Pedi Dosage 2000-03-05 00:00:00 Completed [facility] Polio (IPV/OPV) 2000-03-05 00:00:00 Completed [facility] DTAP 2000-03-05 00:00:00 Completed [facility] HIB 3 Dose Schedule 2000-03-05 00:00:00 Completed [facility] Hep B, Adol or Pedi Dosage 2000-03-05 00:00:00 Completed [facility] Polio (IPV/OPV) 2000-03-05 00:00:00 Completed [facility] DTAP 2000-03-05 00:00:00 Completed [facility] HIB 3 Dose Schedule 2000-03-05 00:00:00 Completed [facility] Hep B, Adol or Pedi Dosage 2000-03-05 00:00:00 Completed [facility] Polio (IPV/OPV) 2000-03-05 00:00:00 Completed [facility] DTAP 2000-03-05 00:00:00 Completed [facility] HIB 3 Dose Schedule 2000-03-05 00:00:00 Completed [facility] Hep B, Adol or Pedi Dosage 2000-03-05 00:00:00 Completed [facility] Polio (IPV/OPV) 2000-03-05 00:00:00 Completed [facility] DTAP 2000-03-05 00:00:00 Completed [facility] HIB 3 Dose Schedule 2000-03-05 00:00:00 Completed [facility] Hep B, Adol or Pedi Dosage 2000-03-05 00:00:00 Completed [facility] Polio (IPV/OPV) 2000-03-05 00:00:00 Completed [facility] DTAP 2000-03-05 00:00:00 Completed [facility] HIB 3 Dose Schedule 2000-03-05 00:00:00 Completed [facility] Hep B, Adol or Pedi Dosage 2000-03-05 00:00:00 Completed [facility] Polio (IPV/OPV) 2000-03-05 00:00:00 Completed [facility] DTAP 2000-03-05 00:00:00 Completed [facility] HIB 3 Dose Schedule 2000-03-05 00:00:00 Completed [facility] Hep B, Adol or Pedi Dosage 2000-03-05 00:00:00 Completed [facility] Polio (IPV/OPV) 2000-03-05 00:00:00 Completed [facility] DTAP 2000-03-05 00:00:00 Completed [facility] HIB 3 Dose Schedule 2000-03-05 00:00:00 Completed [facility] Hep B, Adol or Pedi Dosage 2000-03-05 00:00:00 Completed [facility] Polio (IPV/OPV) 2000-03-05 00:00:00 Completed [facility] DTAP 2000-03-05 00:00:00 Completed [facility] HIB 3 Dose Schedule 2000-03-05 00:00:00 Completed [facility] Hep B, Adol or Pedi Dosage 2000-03-05 00:00:00 Completed [facility] Polio (IPV/OPV) 2000-03-05 00:00:00 Completed [facility] DTAP 2000-03-05 00:00:00 Completed [facility] HIB 3 Dose Schedule 2000-03-05 00:00:00 Completed [facility] Hep B, Adol or Pedi Dosage 2000-03-05 00:00:00 Completed [facility] Polio (IPV/OPV) 2000-03-05 00:00:00 Completed [facility] DTAP 2000-03-05 00:00:00 Completed [facility] HIB 3 Dose Schedule 2000-03-05 00:00:00 Completed [facility] Hep B, Adol or Pedi Dosage 2000-03-05 00:00:00 Completed [facility] Polio (IPV/OPV) 2000-03-05 00:00:00 Completed [facility] DTAP 2000-03-05 00:00:00 Completed [facility] HIB 3 Dose Schedule 2000-03-05 00:00:00 Completed [facility] Hep B, Adol or Pedi Dosage 2000-03-05 00:00:00 Completed [facility] Polio (IPV/OPV) 2000-03-05 00:00:00 Completed [facility] DTAP 2000-03-05 00:00:00 Completed [facility] HIB 3 Dose Schedule 2000-03-05 00:00:00 Completed [facility] Hep B, Adol or Pedi Dosage 2000-03-05 00:00:00 Completed [facility] Polio (IPV/OPV) 2000-03-05 00:00:00 Completed [facility] DTAP 2000-03-05 00:00:00 Completed [facility] HIB 3 Dose Schedule 2000-03-05 00:00:00 Completed [facility] Hep B, Adol or Pedi Dosage 2000-03-05 00:00:00 Completed [facility] Polio (IPV/OPV) 2000-03-05 00:00:00 Completed [facility] DTAP 2000-03-05 00:00:00 Completed [facility] HIB 3 Dose Schedule 2000-03-05 00:00:00 Completed [facility] Hep B, Adol or Pedi Dosage 2000-03-05 00:00:00 Completed [facility] Polio (IPV/OPV) 2000-03-05 00:00:00 Completed [facility] DTAP 2000-03-05 00:00:00 Completed [facility] HIB 3 Dose Schedule 2000-03-05 00:00:00 Completed [facility] Hep B, Adol or Pedi Dosage 2000-03-05 00:00:00 Completed [facility] Polio (IPV/OPV) 2000-03-05 00:00:00 Completed [facility] DTAP 2000-03-05 00:00:00 Completed [facility] HIB 3 Dose Schedule 2000-03-05 00:00:00 Completed [facility] Hep B, Adol or Pedi Dosage 2000-03-05 00:00:00 Completed [facility] Polio (IPV/OPV) 2000-03-05 00:00:00 Completed [facility] DTAP 2000-03-05 00:00:00 Completed [facility] HIB 3 Dose Schedule 2000-03-05 00:00:00 Completed [facility] Hep B, Adol or Pedi Dosage 2000-03-05 00:00:00 Completed [facility] Polio (IPV/OPV) 2000-03-05 00:00:00 Completed [facility] DTAP 2000-03-05 00:00:00 Completed [facility] HIB 3 Dose Schedule 2000-03-05 00:00:00 Completed [facility] Hep B, Adol or Pedi Dosage 2000-03-05 00:00:00 Completed [facility] Polio (IPV/OPV) 2000-03-05 00:00:00 Completed [facility] DTAP 2000-03-05 00:00:00 Completed [facility] HIB 3 Dose Schedule 2000-03-05 00:00:00 Completed [facility] DTAP 1999 00:00:00 Completed [facility] HIB 3 Dose Schedule 1999 00:00:00 Completed [facility] Hep B, Adol or Pedi Dosage 1999 00:00:00 Completed [facility] Polio (IPV/OPV) 1999 00:00:00 Completed [facility] DTAP 1999 00:00:00 Completed [facility] HIB 3 Dose Schedule 1999 00:00:00 Completed [facility] Hep B, Adol or Pedi Dosage 1999 00:00:00 Completed [facility] Polio (IPV/OPV) 1999 00:00:00 Completed [facility] DTAP 1999 00:00:00 Completed [facility] HIB 3 Dose Schedule 1999 00:00:00 Completed [facility] Hep B, Adol or Pedi Dosage 1999 00:00:00 Completed [facility] Polio (IPV/OPV) 1999 00:00:00 Completed [facility] DTAP 1999 00:00:00 Completed [facility] HIB 3 Dose Schedule 1999 00:00:00 Completed [facility] Hep B, Adol or Pedi Dosage 1999 00:00:00 Completed [facility] Polio (IPV/OPV) 1999 00:00:00 Completed [facility] DTAP 1999 00:00:00 Completed [facility] HIB 3 Dose Schedule 1999 00:00:00 Completed [facility] Hep B, Adol or Pedi Dosage 1999 00:00:00 Completed [facility] Polio (IPV/OPV) 1999 00:00:00 Completed [facility] DTAP 1999 00:00:00 Completed [facility] HIB 3 Dose Schedule 1999 00:00:00 Completed [facility] Hep B, Adol or Pedi Dosage 1999 00:00:00 Completed [facility] Polio (IPV/OPV) 1999 00:00:00 Completed [facility] DTAP 1999 00:00:00 Completed [facility] HIB 3 Dose Schedule 1999 00:00:00 Completed [facility] Hep B, Adol or Pedi Dosage 1999 00:00:00 Completed [facility] Polio (IPV/OPV) 1999 00:00:00 Completed [facility] DTAP 1999 00:00:00 Completed [facility] HIB 3 Dose Schedule 1999 00:00:00 Completed [facility] Hep B, Adol or Pedi Dosage 1999 00:00:00 Completed [facility] Polio (IPV/OPV) 1999 00:00:00 Completed [facility] DTAP 1999 00:00:00 Completed [facility] HIB 3 Dose Schedule 1999 00:00:00 Completed [facility] Hep B, Adol or Pedi Dosage 1999 00:00:00 Completed [facility] Polio (IPV/OPV) 1999 00:00:00 Completed [facility] DTAP 1999 00:00:00 Completed [facility] HIB 3 Dose Schedule 1999 00:00:00 Completed [facility] Hep B, Adol or Pedi Dosage 1999 00:00:00 Completed [facility] Polio (IPV/OPV) 1999 00:00:00 Completed [facility] DTAP 1999 00:00:00 Completed [facility] HIB 3 Dose Schedule 1999 00:00:00 Completed [facility] Hep B, Adol or Pedi Dosage 1999 00:00:00 Completed [facility] Polio (IPV/OPV) 1999 00:00:00 Completed [facility] DTAP 1999 00:00:00 Completed [facility] HIB 3 Dose Schedule 1999 00:00:00 Completed [facility] Hep B, Adol or Pedi Dosage 1999 00:00:00 Completed [facility] Polio (IPV/OPV) 1999 00:00:00 Completed [facility] DTAP 1999 00:00:00 Completed [facility] HIB 3 Dose Schedule 1999 00:00:00 Completed [facility] Hep B, Adol or Pedi Dosage 1999 00:00:00 Completed [facility] Polio (IPV/OPV) 1999 00:00:00 Completed [facility] DTAP 1999 00:00:00 Completed [facility] HIB 3 Dose Schedule 1999 00:00:00 Completed [facility] Hep B, Adol or Pedi Dosage 1999 00:00:00 Completed [facility] Polio (IPV/OPV) 1999 00:00:00 Completed [facility] DTAP 1999 00:00:00 Completed [facility] HIB 3 Dose Schedule 1999 00:00:00 Completed [facility] Hep B, Adol or Pedi Dosage 1999 00:00:00 Completed [facility] Polio (IPV/OPV) 1999 00:00:00 Completed [facility] DTAP 1999 00:00:00 Completed [facility] HIB 3 Dose Schedule 1999 00:00:00 Completed [facility] Hep B, Adol or Pedi Dosage 1999 00:00:00 Completed [facility] Polio (IPV/OPV) 1999 00:00:00 Completed [facility] DTAP 1999 00:00:00 Completed [facility] HIB 3 Dose Schedule 1999 00:00:00 Completed [facility] Hep B, Adol or Pedi Dosage 1999 00:00:00 Completed [facility] Polio (IPV/OPV) 1999 00:00:00 Completed [facility] DTAP 1999 00:00:00 Completed [facility] HIB 3 Dose Schedule 1999 00:00:00 Completed [facility] Hep B, Adol or Pedi Dosage 1999 00:00:00 Completed [facility] Polio (IPV/OPV) 1999 00:00:00 Completed [facility] DTAP 1999 00:00:00 Completed [facility] HIB 3 Dose Schedule 1999 00:00:00 Completed [facility] Hep B, Adol or Pedi Dosage 1999 00:00:00 Completed [facility] Polio (IPV/OPV) 1999 00:00:00 Completed [facility] DTAP 1999 00:00:00 Completed [facility] HIB 3 Dose Schedule 1999 00:00:00 Completed [facility] Hep B, Adol or Pedi Dosage 1999 00:00:00 Completed [facility] Polio (IPV/OPV) 1999 00:00:00 Completed [facility] DTAP 1999 00:00:00 Completed [facility] HIB 3 Dose Schedule 1999 00:00:00 Completed [facility] Hep B, Adol or Pedi Dosage 1999 00:00:00 Completed [facility] Polio (IPV/OPV) 1999 00:00:00 Completed [facility] DTAP 1999 00:00:00 Completed [facility] HIB 3 Dose Schedule 1999 00:00:00 Completed [facility] Hep B, Adol or Pedi Dosage 1999 00:00:00 Completed [facility] Polio (IPV/OPV) 1999 00:00:00 Completed [facility] DTAP 1999 00:00:00 Completed [facility] HIB 3 Dose Schedule 1999 00:00:00 Completed [facility] Hep B, Adol or Pedi Dosage 1999 00:00:00 Completed [facility] Polio (IPV/OPV) 1999 00:00:00 Completed [facility] DTAP 1999 00:00:00 Completed [facility] HIB 3 Dose Schedule 1999 00:00:00 Completed [facility] Hep B, Adol or Pedi Dosage 1999 00:00:00 Completed [facility] Polio (IPV/OPV) 1999 00:00:00 Completed [facility] DTAP 1999 00:00:00 Completed [facility] HIB 3 Dose Schedule 1999 00:00:00 Completed [facility] Hep B, Adol or Pedi Dosage 1999 00:00:00 Completed [facility] Polio (IPV/OPV) 1999 00:00:00 Completed [facility] DTAP 1999 00:00:00 Completed [facility] HIB 3 Dose Schedule 1999 00:00:00 Completed [facility] Hep B, Adol or Pedi Dosage 1999 00:00:00 Completed [facility] Polio (IPV/OPV) 1999 00:00:00 Completed [facility] DTAP 1999 00:00:00 Completed [facility] HIB 3 Dose Schedule 1999 00:00:00 Completed [facility] Hep B, Adol or Pedi Dosage 1999 00:00:00 Completed [facility] Polio (IPV/OPV) 1999 00:00:00 Completed [facility] HPV9 Unknown Completed [facility] HPV Unknown Completed [facility] DTAP Unknown Completed [facility] DTAP Unknown Completed [facility] DTAP Unknown Completed [facility] DTAP Unknown Completed [facility] HIB 3 Dose Schedule Unknown Completed [facility] HIB 3 Dose Schedule Unknown Completed [facility] HIB 3 Dose Schedule Unknown Completed [facility] HEPATITIS A Unknown Completed [facility] Hep B, Adol or Pedi Dosage Unknown Completed [facility] Hep B, Adol or Pedi Dosage Unknown Completed [facility] Hep B, Adol or Pedi Dosage Unknown Completed [facility] Meningococcal Vaccine Unknown Completed [facility] Meningococcal Vaccine Unknown Completed [facility] MMR Unknown Completed [facility] MMR Unknown Completed [facility] Pneumococcal 13 Conjugate, PCV13 (Prevnar 13) Unknown Completed [facility] Polio (IPV/OPV) Unknown Completed [facility] Polio (IPV/OPV) Unknown Completed [facility] Polio (IPV/OPV) Unknown Completed [facility] Polio (IPV/OPV) Unknown Completed [facility] TDAP Unknown Completed [facility] Varicella (varivax)(chicken pox) Unknown Completed [facility] Varicella (varivax)(chicken pox) Unknown Completed [facility] HPV9 Unknown Completed [facility] HPV Unknown Completed [facility] DTAP Unknown Completed [facility] DTAP Unknown Completed [facility] DTAP Unknown Completed [facility] DTAP Unknown Completed [facility] HIB 3 Dose Schedule Unknown Completed [facility] HIB 3 Dose Schedule Unknown Completed [facility] HIB 3 Dose Schedule Unknown Completed [facility] HEPATITIS A Unknown Completed [facility] Hep B, Adol or Pedi Dosage Unknown Completed [facility] Hep B, Adol or Pedi Dosage Unknown Completed [facility] Hep B, Adol or Pedi Dosage Unknown Completed [facility] Meningococcal Vaccine Unknown Completed [facility] Meningococcal Vaccine Unknown Completed [facility] MMR Unknown Completed [facility] MMR Unknown Completed [facility] Pneumococcal 13 Conjugate, PCV13 (Prevnar 13) Unknown Completed [facility] Polio (IPV/OPV) Unknown Completed [facility] Polio (IPV/OPV) Unknown Completed [facility] Polio (IPV/OPV) Unknown Completed [facility] Polio (IPV/OPV) Unknown Completed [facility] TDAP Unknown Completed [facility] Varicella (varivax)(chicken pox) Unknown Completed [facility] Varicella (varivax)(chicken pox) Unknown Completed [facility] HPV9 Unknown Completed [facility] HPV Unknown Completed [facility] DTAP Unknown Completed [facility] DTAP Unknown Completed [facility] DTAP Unknown Completed [facility] DTAP Unknown Completed [facility] HIB 3 Dose Schedule Unknown Completed [facility] HIB 3 Dose Schedule Unknown Completed [facility] HIB 3 Dose Schedule Unknown Completed [facility] HEPATITIS A Unknown Completed [facility] Hep B, Adol or Pedi Dosage Unknown Completed [facility] Hep B, Adol or Pedi Dosage Unknown Completed [facility] Hep B, Adol or Pedi Dosage Unknown Completed [facility] Meningococcal Vaccine Unknown Completed [facility] Meningococcal Vaccine Unknown Completed [facility] MMR Unknown Completed [facility] MMR Unknown Completed [facility] Pneumococcal 13 Conjugate, PCV13 (Prevnar 13) Unknown Completed [facility] Polio (IPV/OPV) Unknown Completed [facility] Polio (IPV/OPV) Unknown Completed [facility] Polio (IPV/OPV) Unknown Completed [facility] Polio (IPV/OPV) Unknown Completed [facility] TDAP Unknown Completed [facility] Varicella (varivax)(chicken pox) Unknown Completed [facility] Varicella (varivax)(chicken pox) Unknown Completed [facility] HPV9 Unknown Completed [facility] HPV Unknown Completed [facility] DTAP Unknown Completed [facility] DTAP Unknown Completed [facility] DTAP Unknown Completed [facility] DTAP Unknown Completed [facility] HIB 3 Dose Schedule Unknown Completed [facility] HIB 3 Dose Schedule Unknown Completed [facility] HIB 3 Dose Schedule Unknown Completed [facility] HEPATITIS A Unknown Completed [facility] Hep B, Adol or Pedi Dosage Unknown Completed [facility] Hep B, Adol or Pedi Dosage Unknown Completed [facility] Hep B, Adol or Pedi Dosage Unknown Completed [facility] Meningococcal Vaccine Unknown Completed [facility] Meningococcal Vaccine Unknown Completed [facility] MMR Unknown Completed [facility] MMR Unknown Completed [facility] Pneumococcal 13 Conjugate, PCV13 (Prevnar 13) Unknown Completed [facility] Polio (IPV/OPV) Unknown Completed [facility] Polio (IPV/OPV) Unknown Completed [facility] Polio (IPV/OPV) Unknown Completed [facility] Polio (IPV/OPV) Unknown Completed [facility] TDAP Unknown Completed [facility] Varicella (varivax)(chicken pox) Unknown Completed [facility] Varicella (varivax)(chicken pox) Unknown Completed [facility] HPV9 Unknown Completed [facility] HPV Unknown Completed [facility] DTAP Unknown Completed [facility] DTAP Unknown Completed [facility] DTAP Unknown Completed [facility] DTAP Unknown Completed [facility] HIB 3 Dose Schedule Unknown Completed [facility] HIB 3 Dose Schedule Unknown Completed [facility] HIB 3 Dose Schedule Unknown Completed [facility] HEPATITIS A Unknown Completed [facility] Hep B, Adol or Pedi Dosage Unknown Completed [facility] Hep B, Adol or Pedi Dosage Unknown Completed [facility] Hep B, Adol or Pedi Dosage Unknown Completed [facility] Meningococcal Vaccine Unknown Completed [facility] Meningococcal Vaccine Unknown Completed [facility] MMR Unknown Completed [facility] MMR Unknown Completed [facility] Pneumococcal 13 Conjugate, PCV13 (Prevnar 13) Unknown Completed [facility] Polio (IPV/OPV) Unknown Completed [facility] Polio (IPV/OPV) Unknown Completed [facility] Polio (IPV/OPV) Unknown Completed [facility] Polio (IPV/OPV) Unknown Completed [facility] TDAP Unknown Completed [facility] Varicella (varivax)(chicken pox) Unknown Completed [facility] Varicella (varivax)(chicken pox) Unknown Completed [facility] Vital Signs Vital Name Observation Time Observation Value Comments S ource Systolic blood pressure 2023-01-21 04:29:00 144 mm[Hg] [facility] Diastolic blood pressure 2023-01-21 04:29:00 98 mm[Hg] [facility] Heart rate 2023-01-21 04:29:00 90 /min [facility] Body temperature 2023-01-21 04:29:00 37 Radha [facility] Respiratory rate 2023-01-21 04:29:00 18 /min [facility] Body height 2023-01-21 04:29:00 162.6 cm [facility] Body weight 2023-01-21 04:29:00 96.026 kg [facility] BMI 2023-01-21 04:29:00 36.34 kg/m2 [facility] Oxygen saturation in Arterial blood by Pulse oximetry 2023-01-21 04:29:00 100 /min [facility] Oxygen saturation in Arterial blood by Pulse oximetry 2022-11-27 03:20:00 100 /min [facility] Systolic blood pressure 2022-11-27 03:20:00 139 mm[Hg] [facility] Diastolic blood pressure 2022-11-27 03:20:00 92 mm[Hg] [facility] Heart rate 2022-11-27 03:20:00 80 /min [facility] Body temperature 2022-11-27 03:20:00 36.28 Radha [facility] Respiratory rate 2022-11-27 03:20:00 15 /min [facility] Body height 2022-11-27 03:20:00 162.6 cm [facility] 2022-11-27 03:20:00 96.163 kg [facility] BMI 2022-11-27 03:20:00 36.39 kg/m2 [facility] Heart rate 2022-07-02 16:04:00 87 /min [facility] Body temperature 2022-07-02 16:04:00 36.89 Radha [facility] Respiratory rate 2022-07-02 16:04:00 22 /min [facility] Body height 2022-07-02 16:04:00 165.1 cm [facility] Body weight 2022-07-02 16:04:00 101.833 kg [facility] BMI 2022-07-02 16:04:00 37.36 kg/m2 [facility] Oxygen saturation in Arterial blood by Pulse oximetry 2022-07-02 16:04:00 99 /min [facility] Systolic blood pressure 2021-09-13 07:00:00 121 mm[Hg] [facility] Diastolic blood pressure 2021-09-13 07:00:00 84 mm[Hg] [facility] Heart rate 2021-09-13 07:00:00 98 /min [facility] Respiratory rate 2021-09-13 07:00:00 20 /min [facility] Oxygen saturation in Arterial blood by Pulse oximetry 2021-09-13 07:00:00 98 /min [facility] Body temperature 2021-09-13 05:34:00 37.61 Radha [facility] Body height 2021-09-13 05:34:00 162.6 cm [facility] Body weight 2021-09-13 05:34:00 111.131 kg [facility] BMI 2021-09-13 05:34:00 42.05 kg/m2 [facility] Systolic blood pressure 2020-12-31 20:48:00 127 mm[Hg] [facility] Diastolic blood pressure 2020-12-31 20:48:00 96 mm[Hg] [facility] Heart rate 2020-12-31 20:48:00 83 /min [facility] Body temperature 2020-12-31 20:48:00 36.83 Radha [facility] Respiratory rate 2020-12-31 20:48:00 18 /min [facility] Body weight 2020-12-31 20:48:00 110.678 kg [facility] BMI 2020-12-31 20:48:00 41.88 kg/m2 [facility] Oxygen saturation in Arterial blood by Pulse oximetry 2020-12-31 20:48:00 100 /min [facility] Systolic blood pressure 2020-11-07 14:46:00 126 mm[Hg] [facility] Diastolic blood pressure 2020-11-07 14:46:00 76 mm[Hg] [facility] Heart rate 2020-11-07 14:46:00 92 /min [facility] Body temperature 2020-11-07 14:46:00 37 Radha [facility] Respiratory rate 2020-11-07 14:46:00 24 /min [facility] Body height 2020-11-07 14:46:00 162.6 cm [facility] Body weight 2020-11-07 14:46:00 113.581 kg [facility] BMI 2020-11-07 14:46:00 42.98 kg/m2 [facility] Systolic blood pressure 2020-10-17 18:10:00 119 mm[Hg] [facility] Diastolic blood pressure 2020-10-17 18:10:00 72 mm[Hg] [facility] Heart rate 2020-10-17 18:10:00 99 /min [facility] Body temperature 2020-10-17 18:10:00 36.89 Radha [facility] Respiratory rate 2020-10-17 18:10:00 16 /min [facility] Body height 2020-10-17 18:10:00 162.6 cm [facility] Body weight 2020-10-17 18:10:00 117.113 kg [facility] BMI 2020-10-17 18:10:00 44.32 kg/m2 [facility] Systolic blood pressure 2020-08-09 06:00:00 136 mm[Hg] [facility] Diastolic blood pressure 2020-08-09 06:00:00 75 mm[Hg] [facility] Heart rate 2020-08-09 06:00:00 93 /min [facility] Respiratory rate 2020-08-09 06:00:00 18 /min [facility] Oxygen saturation in Arterial blood by Pulse oximetry 2020-08-09 06:00:00 92 /min [facility] Body temperature 2020-08-09 05:00:00 37.44 Radha [facility] Body height 2020-08-09 05:00:00 162.6 cm [facility] Body weight 2020-08-09 05:00:00 114.306 kg [facility] BMI 2020-08-09 05:00:00 43.26 kg/m2 [facility] Systolic blood pressure 2020-01-08 07:00:00 137 mm[Hg] [facility] Diastolic blood pressure 2020-01-08 07:00:00 82 mm[Hg] [facility] Heart rate 2020-01-08 07:00:00 80 /min [facility] Body temperature 2020-01-08 07:00:00 36.89 Radha [facility] Respiratory rate 2020-01-08 07:00:00 11 /min [facility] Oxygen saturation in Arterial blood by Pulse oximetry 2020-01-08 07:00:00 95 /min [facility] Body weight 2020-01-08 05:39:00 108.863 kg [facility] Systolic blood pressure 2020-01-08 07:00:00 137 mm[Hg] [place] [facility] Diastolic blood pressure 2020-01-08 07:00:00 82 mm[Hg] [facility] Heart rate 2020-01-08 07:00:00 80 /min [facility] Body temperature 2020-01-08 07:00:00 36.89 Radha [facility] Respiratory rate 2020-01-08 07:00:00 11 /min [facility] Oxygen saturation in Arterial blood by Pulse oximetry 2020-01-08 07:00:00 95 /min [facility] Body weight 2020-01-08 05:39:00 108.863 kg [facility] Procedures Procedure Date / Time Performed Performing Clinicia n Source URINALYSIS 2023-01-21 06:04:00 Corey Ledezma [facility] POCT TEST 2023-01-21 06:04:00 Corey Ledezma [facility] CONSENT/REFUSAL FOR DIAGNOSIS AND TREATMENT 2023-01-21 04:16:58 Doctor Unassigned, [place] [facility] POCT TEST 2022-11-27 05:32:00 Bret Herndon [facility] URINALYSIS 2022-11-27 05:31:00 [facility] LACTIC ACID WHOLE BLOOD 2022-11-27 05:17:00 Alvaro Herndon [facility] LIPASE 2022-11-27 05:16:00 Alvaro Herndon [facility] TEST, SERUM 2022-11-27 05:16:00 Travis Herndon [facility] COMP. METABOLIC PANEL (61253) 2022-11-27 05:16:00 Alvaro Herndon [facility] CBC WITH DIFF 2022-11-27 05:16:00 Alvaro Herndon [facility] ASSIGNMENT OF BENEFITS 2022-11-27 04:54:06 Docto r Unassigned, [place] [facility] CONSENT/REFUSAL FOR DIAGNOSIS AND TREATMENT 2022-11-27 03:16:23 Doctor Unassigned, [place] [facility] XR SPINE THORACIC 2 VW 2022-07-02 18:53:16 Demi Allan [facility] XR ELBOW >3 VW LEFT 2022-07-02 18:53:16 Prakash Allan [facility] CONSENT/REFUSAL FOR DIAGNOSIS AND TREATMENT 2022-07-02 15:56:23 Doctor Unassigned, [place] [facility] CONSENT/REFUSAL FOR DIAGNOSIS AND TREATMENT 2021-09-13 05:29:08 Doctor Unassigned, [place] [facility] NOTICE OF PRIVACY PRACTICES 2021-09-13 05:28:35 Doctor Unassigned, [place] [facility] POCT TEST 2020-12-31 21:04:00 Bret Herndon [facility] URINALYSIS 2020-12-31 20:58:00 Alvaro Herndon [facility] CONSENT/REFUSAL FOR DIAGNOSIS AND TREATMENT 2020-12-31 20:17:00 Doctor Unassigned, [place] [facility] POCT TEST 2020-10-17 19:59:00 Sea Briseno [facility] GARDASIL 9 (HPV 9V) VACCINE 2020-10-17 19:16:48 Felipa Briseno [facility] CONSENT/REFUSAL FOR DIAGNOSIS AND TREATMENT 2020-10-17 17:25:15 Doctor Unassigned, [place] [facility] ASSIGNMENT OF BENEFITS 2020-10-17 17:24:54 Docto r Unassigned, [place] [facility] BASIC METABOLIC PANEL (NA, K, CL, CO2, GLUCOSE, BUN, CREATININE, CA) 2020-08-09 05:20:00 Morena Benton [facility] CBC WITH DIFF 2020-08-09 05:20:00 [facility] 2020-08-09 05:05:00 Janet Benton ra [facility] URINALYSIS 2020-08-09 05:03:00 [facility] NOTICE OF PRIVACY PRACTICES 2020-08-09 04:47:00 Doctor Unassigned, [place] [facility] CONSENT/REFUSAL FOR DIAGNOSIS AND TREATMENT 2020-08-09 04:46:34 Doctor Unassigned, [place] [facility] XR CHEST 1 VW 2020-01-08 06:19:33 El Hussein [facility] LIPASE 2020-01-08 06:14:00 El Hussein [facility] TROPONIN I 2020-01-08 06:14:00 El Hussein [facility] HEPATIC FUNCTION PANEL (19893) (ALB,T.PRO,BILI T,BU/BC,ALT,AST,ALK PHOS) 2020-01-08 06:14:00 El Hussein [facility] BASIC METABOLIC PANEL (NA, K, CL, CO2, GLUCOSE, BUN, CREATININE, CA) 2020-01-08 06:14:00 El Hussein [facility] CBC WITH DIFF 2020-01-08 06:14:00 El Hussein [facility] URINALYSIS 2020-01-08 06:14:00 El Hussein [facility] POCT TEST 2020-01-08 06:13:00 El Hussein [facility] EKG-12 LEAD 2020-01-08 05:54:25 El Hussein [facility] Encounters Start Date/Time End Date/Time Encounter Type Admission Type Attending [facility] Care Department Encounter ID Source 2021-04-02 12:16:56 Emergency [facility] [id number] [facility] 2023-01-20 23:32:00 2023-01-21 02:45:00 Emergency X Corey LEDEZMA [facility] E[facility] [id number] [facility] 2023-01-20 23:32:00 2023-01-21 02:45:00 Emergency Corey Ledezma [facility] ..840.114 350.1.13.10 4.2.7.2.686 [id number] [facility] 2023-01-21 00:00:00 2023-01-21 00:00:00 Patient Secure Msg Doctor Unassigned, [place] [facility] 1.2.840.114 350.1.13.10 4.2.7.2.686 [id number] [facility] 2023-01-01 00:00:00 2023-01-01 00:00:00 Letter (Out) Clinic, [facility] Gastroenter oly [facility] 1.2.840.114 350.1.13.10 4.2.7.2.686 [id number] [facility] 2022-12-30 00:00:00 2022-12-30 00:00:00 Patient Secure Msg Doctor Unassigned, [place] [facility] 1.2.840.114 350.1.13.10 4.2.7.2.686 [id number] [facility] 2022-11-26 22:37:00 2022-11-27 02:15:00 Emergency X ALVARO HERNDON [facility] ERT [id number] [facility] 2022-11-26 22:37:00 2022-11-27 02:15:00 Emergency Alvaro Herndon [facility] 1.2.840.114 350.1.13.10 4.2.7.2.686 [id number] [facility] 2022-11-26 00:00:00 2022-11-26 00:00:00 Orders Only Doctor Unassigned, [place] [facility] 1.2.840.114 350.1.13.10 4.2.7.2.686 [id number] [facility] 2022-10-16 14:28:32 2022-10-16 14:28:32 Outpatient [facility] [id number] Eulogio Alcantar 2022-07-02 10:07:00 2022-07-02 14:07:00 Emergency X PRAKASH ALLAN [facility] ERT [id number] [facility] 2022-07-02 10:07:00 2022-07-02 14:07:00 Emergency Allan, Prakash S [facility] 1.2.840.114 350.1.13.10 4.2.7.2.686 [id number] [facility] 2022-07-02 00:00:00 2022-07-02 00:00:00 Orders Only Doctor Unassigned, [place] [facility] 1.2.840.114 350.1.13.10 4.2.7.2.686 [id number] [facility] 2021-09-13 00:42:00 2021-09-13 02:04:00 Emergency X JERRELL PRAKASH [facility] ERT [id number] [facility] 2021-09-13 00:42:00 2021-09-13 02:04:00 Emergency Prakash Allan [facility] 1.2.840.114 350.1.13.10 4.2.7.2.686 [id number] [facility] 2021-03-02 00:00:00 2021-03-02 00:00:00 Telephone Felipa Briseno [facility] PHARMACIST INTERN [facility] 1.2.840.114 350.1.13.10 4.2.7.2.686 [id number] [facility] 2021-02-19 08:15:00 2021-02-19 08:15:00 Outpatient FELIPA TOM [facility] [id number] [facility] 2021-02-06 10:30:00 2021-02-06 10:30:00 Outpatient FELIPA TOM [facility] [id number] [facility] 2020-12-31 16:05:00 2020-12-31 18:56:00 Emergency Annabella Samayoa [facility] 1.2.840.114 350.1.13.10 4.2.7.2.686 [id number] [facility] 2020-12-25 00:00:00 2020-12-25 00:00:00 Telephone Felipa Briseno [facility] PHARMACIST INTERN [facility] & CHILD [facility] 1.2.840.114 350.1.13.10 4.2.7.2.686 [id number] [facility] 2020-12-24 00:00:00 2020-12-24 00:00:00 Nurse Triage [facility] 1.2840.114 350.1.13.10 4.2.7.2.686 [id number] [facility] 2020-11-13 00:00:00 2020-11-13 00:00:00 Patient Secure Msg Felipa Briseno [facility] PHARMACIST INTERN [facility] & [facility]ILD [facility] 1.2840.114 350.1.13.10 4.2.7.2.686 [id number] [facility] 2020-11-07 09:33:35 2020-11-07 11:41:19 Office Visit Felipa Briseno [employer] PHARMACIST INTERN [facility] CHILD [facility] 1.2.840.114 350.1.13.10 4.2.7.2.686 [id number] [facility] 2020-11-07 09:30:00 2020-11-07 09:30:00 Outpatient R FELIPA BRISENO [facility] [id number] [facility] 2020-11-03 00:00:00 2020-11-03 00:00:00 Telephone Felipa Briseno [facility] PHARMACIST INTERN [facility] CHILD [facility] 1.2.840.114 350.1.13.10 4.2.7.2.686 [id number] [facility] 2020-11-02 00:00:2020-11-02 00:00:00 Telephone Felipa Briseno [facility] PHARMACIST INTERN [facility] & [facility]ILD [facility] 1.2840.114 350.1.13.10 4.2.7.2.686 [id number] [facility] 2020-11-01 00:00:00 2020-11-01 00:00:00 Patient Secure Msg AbrahamFelipa friedman [facility] PHARMACIST INTERN [facility] & [facility]ILD [facility] 1.2840.114 350.1.13.10 4.2.7.2.686 [id number] [facility] 2020-11-01 00:00:00 2020-11-01 00:00:00 Refill Felipa Briseno [facility] PHARMACIST INTERN [facility] CHILD [facility] 1.840.114 350.1.13.10 4.2.7.2.686 [id number] [facility] 2020-11-01 00:00:00 2020-11-01 00:00:00 Letter (Out) Jake Jonas [facility] .840.114 350.1.13.10 4.2.7.2.686 [id number] [facility] 2020-10-27 15:30:00 2020-10-27 15:30:00 Outpatient R [facility] [id number] [facility] 2020-10-23 00:00:00 2020-10-23 00:00:00 Patient Secure Msg SukhFelipa rosado [facility] PHARMACIST INTERN [facility] & [facility]ILD [facility] 1.840.114 350.1.13.10 4.2.7.2.686 [id number] [facility] 2020-10-19 00:00:00 2020-10-19 00:00:00 Telephone Felipa Briseno [facility] PHARMACIST INTERN [facility] & CHILD [facility] 1.2.840.114 350.1.13.10 4.2.7.2.686 [id number] [facility]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
[2023-06-30 14:36] LABS: Hematocrit 38.1 % (36.0-45.0); Lymphocytes % 23.9 % (15.3-44.8); MCV 82.9 fL (80-100); MPV 7.6 fL (7.6-11.3); Platelets 362 thou/uL (152-406)
[2023-06-30 15:50] LABS: Specific Gravity 1.023 (1.005-1.030)
[2023-06-30 15:52] LABS: Specific Gravity 1.023 (1.005-1.030); Urine Bacteria <20 /HPF (<20); Urine Bilirubin NEGATIVE (Negative); Urine Blood 3+ (OVER) (Negative); Urine Clarity Extremely Turbid (Clear); Urine Color Light-Brown (Yellow); Urine Glucose NEGATIVE (Negative); Urine Mucus Slight /HPF (None Seen); Urine Protein TRACE (Negative); Urine RBC >50 /HPF (None Seen); Urine Urobilinogen Normal (Normal); Urine pH 7.5 (5.0-7.0)
--- NOTE | 2023-06-30 17:17 | RAD REPORT ---
EXAM DESCRIPTION: CT - Abdomen Pelvis W Contrast - 06/30/2023 4:45 pm CLINICAL HISTORY: ABD PAIN COMPARISON: Abdomen Pelvis W Contrast dated 02/15/2022 TECHNIQUE: Thin cut axial CT imaging of the abdomen and pelvis was performed following intravenous a dministration of 100 mL Isovue 300. Multiplanar reformats were generated and reviewed. All CT scans are performed using dose optimization technique as appropriate and may include automated exposure control or mA/KV adjustment according to patient size. FINDINGS: No suspicious findings in the lung bases. The liver, spleen, adrenal glands, and pancreas show no suspicious findings. Gallbladder and biliary tree are also without suspicious finding. Symmetric renal function is seen with no hydronephrosis or suspicious renal mass. No dilated bowel loops or bowel wall thickening. No free air, free fluid or inflammatory stranding. N o hernia, mass or bulky lymphadenopathy. The urinary bladder is without significant finding. No suspicious bony findings. IMPRESSION: No acute intra-abdominal process.
--- NOTE | 2023-06-30 17:29 | ER ---
Nurse's Notes [facility] Name: Gisele Tilley Age: 23 yrs Sex: Female : 2000 Arrival Date: 06/30/2023 Time: 13:08 Bed 16 Private MD: Diagnosis: Menorrhagia Presentation: 06/30 13:29 Chief complaint: Patient states: Pt states she is having her period currently. She tl4 states it was early and she is passing large blood clots. Pt c/o nausea and dizziness. Pt states she generally does not feel well. Pt states this is not a normal period for her. Coronavirus screen: Vaccine status: Patient reports being unvaccinated. Ebola Screen: Patient negative for fever greater than or equal to 101.5 degrees Fahrenheit, and additional compatible Ebola Virus Disease symptoms Patient denies exposure to infectious person. Patient denies travel to an Ebola-affected area in the 21 days before illness onset. No symptoms or risks identified at this time. Initial Sepsis Screen: Does the patient meet any 2 criteria? No. Patient's initial sepsis screen is negative. Does the patient have a suspected source of infection? No. Patient's initial sepsis screen is negative. Risk Assessment: Do you want to hurt yourself or someone else? Patient reports no desire to harm self or others. Onset of symptoms was June 30, 2023. 13:29 Method Of Arrival: Ambulatory tl4 13:29 Acuity: IRIS 3 tl4 Triage Assessment: 13:31 General: Appears uncomfortable, Behavior is calm, cooperative. Pain: Complains of pain tl4 in abdomen Pain does not radiate. EENT: No deficits noted. No signs and/or symptoms were reported regarding the EENT system. Neuro: No deficits noted. Cardiovascular: No deficits noted. Denies chest pain, diaphoresis, lightheadedness, palpitations. Respiratory: No deficits noted. Denies cough, shortness of breath. GI: Reports nausea. : Reports vaginal bleeding that is with clots, heavy flow. Historical: - Allergies: 13:31 PENICILLINS; tl4 - PMHx: 13:31 Depression; Diabetes - NIDDM; ibs; tl4 - PSHx: 13:31 None; tl4 - Immunization history:: Adult Immunizations unknown. - Social history:: Smoking status: Patient denies any tobacco usage or history of. Screenin:30 [facility] ED Fall Risk Assessment (Adult) History of falling in the last 3 months, bp including since admission No falls in past 3 months (0 pts). Abuse screen: Denies threats or abuse. Denies injuries from another. Nutritional screening: No deficits noted. Tuberculosis screening: No symptoms or risk factors identified. Assessment: 13:30 General: SEE TRIAGE NOTE. bp 15:00 Reassessment: No changes from previously documented assessment. Patient is alert, bp oriented x 3, equal unlabored respirations, skin warm/dry/pink. 16:53 Reassessment: PT RETURNED FROM CT. bp Vital Signs: 13:29 BP 112 / 71; Pulse 80; Resp 16; Temp 98.7(O); Pulse Ox 100% ; Weight 77.11 kg; Height 5 tl4 ft. 4 in. ; Pain 8/10; 15:30 BP 115 / 71; Pulse 87; Resp 18; Pulse Ox 100% ; bp 16:57 BP 121 / 69; Pulse 79; Resp 16; Pulse Ox 99% ; bp 13:29 Body Mass Index 29.18 (77.11 kg, 162.56 cm) tl4 13:29 Pain Scale: Adult tl4 ED Course: 13:14 Patient arrived in ED. im 13:15 Alis Griffin PA-C is PHCP. sb4 13:15 Jose Munoz DO is Attending Physician. sb4 13:30 Patient has correct armband on for positive identification. Call light in reach. Side bp rails up X2. 13:31 Triage completed. tl4 13:32 Arm band placed on right wrist. tl4 14:11 Initial lab(s) drawn, by ca, sent to lab. Inserted saline lock: 22 gauge in left ap3 antecubital area, using aseptic technique. Blood collected. 14:43 Ziyad Quan, TALON is Primary Nurse. bp 16:47 CT Abd/Pelvis - IV Contrast Only In Process Unspecified. EDMS 17:26 Leslie Juarez MD is Referral Physician. sb4 17:42 No provider procedures requiring assistance completed. IV discontinued, intact, bp bleeding controlled, No redness/swelling at site. Pressure dressing applied. Administered Medications: No medications were administered Outcome: 17:27 Discharge ordered by . sb4 17:42 Discharged to home ambulatory, bp 17:42 Condition: stable 17:42 Discharge instructions given to patient, Instructed on discharge instructions, follow up and referral plans. Demonstrated understanding of instructions, follow-up care, 17:42 Patient left the ED. bp Signatures: Dispatcher [employer] Ziyad Márquez, RN RN Amairani Helm RN RN ap3 Alis Griffin, PATeodora PATeodora sb4 Ary Montejo Toni tl4
--- NOTE | 2023-06-30 17:29 | EDPHYS ---
Physician Documentation [facility] Name: Gisele Tilley Age: 23 yrs Sex: Female : 2000 Arrival Date: 06/30/2023 Time: 13:08 Bed 16 Private MD: ED Physician Jose Munoz HPI: 06/30 13:48 This 23 yrs old Female presents to ER via Ambulatory with complaints of sb4 Vaginal Bleeding, Low Back Pain, Nausea. 13:48 patient states that she started her period yesterday, 1 week early. states that she has sb4 been passing several large blood clots, which is abnormal for her menstrual cycles. she also reports low back pain, which her chiropractor told her her right kidney was "swollen". she also reports nausea, vomiting, and blurry vision. not on any OCPs/IUD. Historical: - Allergies: 13:31 PENICILLINS; tl4 - PMHx: 13:31 Depression; Diabetes - NIDDM; ibs; tl4 - PSHx: 13:31 None; tl4 - Immunization history:: Adult Immunizations unknown. - Social history:: Smoking status: Patient denies any tobacco usage or history of. ROS: 13:48 Positive for vaginal bleeding, sb4 13:48 Constitutional: Negative for fever, chills, and weight loss, 13:48 Abdomen/GI: Positive for abdominal pain, nausea and vomiting, 13:48 Back: Positive for flank pain, bilaterally, 13:48 All other systems are negative, Exam: 13:48 Constitutional: This is a well developed, well nourished patient who is awake, alert, sb4 and in no acute distress. Head/Face: Normocephalic, atraumatic. Eyes: Extra-ocular motions intact. Periorbital areas with no swelling, redness, or edema. ENT: Mucous membranes moist. Cardiovascular: Regular rate and rhythm with a normal S1 and S2. Respiratory: Lungs have equal breath sounds bilaterally, clear to auscultation and percussion. No rales, rhonchi or wheezes noted. No increased work of breathing, no retractions or nasal flaring. Abdomen/GI: Soft, non-tender, no distension. Skin: Warm, dry with normal turgor. Normal color with no rashes, no lesions, and no evidence of cellulitis. MS/ Extremity: Pulses equal, no cyanosis. Neurovascular intact. Full, normal range of motion. Neuro: Awake and alert, GCS 15, oriented to person, place, time, and situation. Motor strength 5/5 in all extremities. Sensory grossly intact. 13:48 Back: CVA tenderness, that is moderate, is noted on the right, sb4 Vital Signs: 13:29 BP 112 / 71; Pulse 80; Resp 16; Temp 98.7(O); Pulse Ox 100% ; Weight 77.11 kg; Height 5 tl4 ft. 4 in. ; Pain 8/10; 15:30 BP 115 / 71; Pulse 87; Resp 18; Pulse Ox 100% ; bp 16:57 BP 121 / 69; Pulse 79; Resp 16; Pulse Ox 99% ; bp 13:29 Body Mass Index 29.18 (77.11 kg, 162.56 cm) tl4 13:29 Pain Scale: Adult tl4 MDM: 13:30 Patient medically screened. sb4 15:42 Awaiting: CT scan results, patient did not want to provide urine sample. sb4 17:26 Data reviewed: vital signs, nurses notes, lab test result(s), radiologic studies, and sb4 as a result, I will discharge patient. Counseling: I had a detailed discussion with the patient and/or guardian regarding the historical points, exam findings, and any diagnostic results supporting the discharge/admit diagnosis, lab results, radiology results, to return to the emergency department if symptoms worsen or persist or if there are any questions or concerns that arise at home. 06/30 13:36 Order name: Basic Metabolic Panel; Complete Time: 14:57 sb4 06/30 13:36 Order name: CBC with Diff; Complete Time: 14:39 sb4 06/30 13:36 Order name: Test, Urine; Complete Time: 15:52 sb4 06/30 13:36 Order name: Urinalysis w/ reflexes; Complete Time: 15:52 sb4 06/30 13:36 Order name: CT Abd/Pelvis - IV Contrast Only; Complete Time: 17:18 sb4 06/30 13:36 Order name: IV Saline Lock; Complete Time: 14:11 sb4 06/30 13:36 Order name: Labs collected and sent; Complete Time: 14:11 sb4 Administered Medications: No medications were administered Disposition: 16:53 I was immediately available on-site in the Emergency Department for consultation in the ms3 care of the patient. Disposition Summary: 06/30/23 17:27 Discharge Ordered Problem: new sb4 Symptoms: are unchanged sb4 Condition: Stable sb4 Diagnosis - Menorrhagia sb4 Followup: sb4 - With: Leslie Juarez MD - When: As needed - Reason: Further diagnostic work-up, Recheck today's complaints, Re-evaluation by your physician Discharge Instructions: - Discharge Summary Sheet sb4 - Menorrhagia, [id number]-[id number] sb4 - Dysmenorrhea, Eycs-uh-Fyks sb4 Forms: - Work release form sb4 - Medication Reconciliation Form sb4 - Thank You Letter sb4 - Antibiotic Education sb4 - Prescription Opioid Use sb4 - Patient Portal Instructions sb4 - Leadership Thank You Letter sb4 Signatures: Dispatcher [employer] EDMS Jose Munoz DO DO ms3 Alis Griffin PA-C PA-C sb4 JhoanaEmiliano garcia tl4
[2023-06-30 20:41] VITALS: TEMP 98.7
[2023-06-30 20:58] VITALS: BP 121/69; O2SAT 99
== END ==
LOC: ER 13:08
DX: N92.0 Excessive and frequent menstruation with regular cycle (principal)
CPT/HCPCS: 36415; 74177; 80048; 81001; 81025; 85025; Q9967

== ENCOUNTER → 2023-08-12 | Emergency (ER) | payer SELFPAY ==
--- OUTSIDE RECORDS SUMMARY | 2023-08-12 14:06 | XMS REPORT | Continuity of Care Document ---
Author Name Unknown Address [address] 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 Role Phone Francesca Walsh Primary Care Physician [phone] Corey LEDEZMA Attending Clinician Unavailable Corey Neal Attending Clinician [phone] Doctor Unassigned, [place] Attending Clinician [facility] Attending Clinicia n ALVARO HERNDON Attending Clinician Unavailable Alvaro Herndon MD Attending Clinician [phone] PRAKASH ALLAN Attending Clinician Unavailable Prakash Wells S Attending Clinician [phone] Felipa Castellanos Attending Clinician + FELIPA BRISENO Attending Clinician Unavail Annabella Munson NP Attending Clinician [phone] Lise Garcia RN Attending Clinician Unavailable Jake Jonas MD Attending Clinician [phone] Morena Benton DO Attending Clinician [phone] MORNEA BENTON Attending Clinician Unavailab [place] Attending Clinician [phone] EL HUSSEIN Attending Clinician Unavailable Corey LEDEZMA [...] woman exam Disease Active 10-17 00:00: 00 [facility] Obesity (BMI 30-39.9) Obesity (BMI 30-39.9) Disease Active 10-17 00:00: 00 [facility] Pilonidal cyst Pilonidal cyst Disease Active 10-17 00:00: 00 [facility] No known active problems No known active problems Disease [facility] Allergies, Adverse Reactions, Alerts Allergy Name Allergy Type Status Severity Reaction(s) Onset Date Inactive Date Treating Clinician Comments Source Cat Dander Propensi ty to adverse reaction s Active Hives 10-17 00:00: 00 [facility] CAT DANDER DRUG INGREDI Active Hives 10-17 00:00: 00 [facility] Penicill ins Propensi ty to adverse reaction s Active Hives 02-15 00:00: 00 [facility] PENICILL INS Drug Class Active Hives 02-15 00:00: 00 [facility] Penicill ins Propensi ty to adverse reaction s Active Hives 02-15 00:00: 00 [facility] Social History Social Habit Start Date Stop Date Quantity Comments Source Gender identity [facility] Sexual orientation [facility] History of tobacco use Cigarette Smoker [facility] History SDOH Alcohol Frequency [facility] History SDOH Alcohol Std Drinks [facility] History SDOH Alcohol Binge [facility] Exposure to SARS-CoV-2 (event) 2022-06-22 00:00:00 2022-07-02 12:36:00 Not sure [facility] History of Social function 2020-10-17 00:00:00 2020-10-17 00:00:00 [facility] Cigarettes smoked current (pack per day) - Reported 2020-10-17 00:00:00 2020-10-17 00:00:00 [facility] Tobacco use and exposure 2020-10-17 00:00:00 2020-10-17 00:00:00 Former smokeless tobacco user [facility] Alcohol intake 2020-10-17 00:00:00 2020-10-17 00:00:00 Current drinker of alcohol (finding) [facility] Tobacco Comment 2020-10-17 00:00:00 2020-10-17 00:00:00 8-10 cigarettes a day [facility] Alcohol Comment 2020-10-17 00:00:00 2020-10-17 00:00:00 socially [facility] Sex Assigned At 2000 00:00:00 2000 00:00:00 [facility] Smoking Status Start Date Stop Date Source Smokes tobacco daily 2020-10-17 00:00:00 [facility] Unknown if ever smoked [facility] Medications Ordered Medication Name Filled Medication Name Start Date Stop Date Current Medication? Ordering Clinician Indication Dosage Frequency Signature (SIG) Comments Components Source ketorolac (TORADOL) injection 30 mg 01-21 07:00: 00 01-21 06:05 :00 No 30mg 30 mg, Intramuscu lar, ONCE, 1 dose, On Fri01/21/23 at 0200, SHALOM [facility] iopamidol (ISOVUE 370-500 mL) injection 80 mL 11-27 07:15: 00 11-27 06:24 :00 No [id number] 80mL 80 mL, Intravenou s, ONCE, 1 dose, On Fri11/27/22 at 0215, Routine [facility] NaCl 0.9% (NS) bolus infusion 1,000 mL 11-27 05:30: 00 11-27 06:58 :00 No 1000mL at 999 mL/hr, 1,000 mL, IV Infusion, ONCE, 1 dose, On Fri11/27/22 at 0030, STAT [facility] metoclopram shade HCl (REGLAN) injection 10 mg 11-27 04:30: 00 11-27 05:20 :00 No 10mg 10 mg, Slow IV Push, ONCE, 1 dose, On Fri11/26/22 at 2330, SHALOM [facility] metoclopram shade HCl 10 mg tablet 11-27 00:00: 00 Yes [id number] 10mg Take 1 tablet by mouth every 6 (six) hours. [facility] famotidine 20 mg tablet 11-27 00:00: 00 Yes [id number] 20mg Take 1 tablet by mouth in the morning and 1 tablet in the evening. [facility] metoclopram shade HCl 10 mg tablet 11-27 00:00: 00 Yes [id number] 10mg Take 1 tablet by mouth every 6 (six) hours. [facility] famotidine 20 mg tablet 11-27 00:00: 00 Yes [id number] 20mg Take 1 tablet by mouth in the morning and 1 tablet in the evening. [facility] metoclopram shade HCl 10 mg tablet 11-27 00:00: 00 Yes [id number] 10mg Take 1 tablet by mouth every 6 (six) hours. [facility] famotidine 20 mg tablet 11-27 00:00: 00 Yes [id number] 20mg Take 1 tablet by mouth in the morning and 1 tablet in the evening. [facility] metoclopram shade HCl 10 mg tablet 11-27 00:00: 00 Yes [id number] 10mg Take 1 tablet by mouth every 6 (six) hours. [facility] famotidine 20 mg tablet 11-27 00:00: 00 Yes [id number] 20mg Take 1 tablet by mouth in the morning and 1 tablet in the evening. [facility] metoclopram shade HCl 10 mg tablet 11-27 00:00: 00 Yes [id number] 10mg Take 1 tablet by mouth every 6 (six) hours. [facility] famotidine 20 mg tablet 11-27 00:00: 00 Yes [id number] 20mg Take 1 tablet by mouth in the morning and 1 tablet in the evening. [facility] ibuprofen (IBU) tablet 600 mg 07-02 18:30: 00 07-02 18:57 :00 No 600mg 600 mg, Oral, ONCE, 1 dose, On Fri07/02/22 at 1230, SHALOM [facility] clindamycin (CLEOCIN HCL) capsule 450 mg [...] n use: pilonidal cyst allergic to PCN [facility] clindamycin 150 mg capsule 09-13 00:00: 00 09-24 04:59 :00 No [id number] 450mg Take 3 capsules by mouth 3 (three) times daily for 10 days. [facility] norgestimat e-ethinyl estradioL (ORTHO TRI-CYCLEN, ,) 0.18/0.215/ 0.25 mg-35 mcg (28) tablet 11-07 00:00: 00 Yes [id number] 1{tbl} Take 1 tablet by mouth daily. [facility] norgestimat e-ethinyl estradioL (ORTHO TRI-CYCLEN, 28,) 0.18/0.215/ 0.25 mg-35 mcg (28) tablet 11-07 00:00: 00 Yes [id number] 1{tbl} Take 1 tablet by mouth daily. [facility] norgestimat e-ethinyl estradioL (ORTHO TRI-CYCLEN, 28,) 0.18/0.215/ 0.25 mg-35 mcg (28) tablet 11-07 00:00: 00 Yes [id number] 1{tbl} Take 1 tablet by mouth daily. [facility] norgestimat e-ethinyl estradioL (ORTHO TRI-CYCLEN, 28,) 0.18/0.215/ 0.25 mg-35 mcg (28) tablet 11-07 00:00: 00 Yes [id number] 1{tbl} Take 1 tablet by mouth daily. [facility] norgestimat e-ethinyl estradioL (ORTHO TRI-CYCLEN, 28,) 0.18/0.215/ 0.25 mg-35 mcg (28) tablet 11-07 00:00: 00 Yes [id number] 1{tbl} Take 1 tablet by mouth daily. [facility] norgestimat e-ethinyl estradioL (ORTHO TRI-CYCLEN, 28,) 0.18/0.215/ 0.25 mg-35 mcg (28) tablet 11-07 00:00: 00 Yes [id number] 1{tbl} Take 1 tablet by mouth daily. [facility] norgestimat e-ethinyl estradioL (ORTHO TRI-CYCLEN, 28,) 0.18/0.215/ 0.25 mg-35 mcg (28) tablet 11-07 00:00: 00 Yes [id number] 1{tbl} Take 1 tablet by mouth daily. [facility] norgestimat e-ethinyl estradioL (ORTHO TRI-CYCLEN, 28,) 0.18/0.215/ 0.25 mg-35 mcg (28) tablet 11-07 00:00: 00 Yes [id number] 1{tbl} Take 1 tablet by mouth daily. [facility] norgestimat e-ethinyl estradioL (ORTHO TRI-CYCLEN, 28,) 0.18/0.215/ 0.25 mg-35 mcg (28) tablet 11-07 00:00: 00 Yes [id number] 1{tbl} Take 1 tablet by mouth daily. [facility] norgestimat e-ethinyl estradioL (ORTHO TRI-CYCLEN, 28,) 0.18/0.215/ 0.25 mg-35 mcg (28) tablet 11-07 00:00: 00 Yes [id number] 1{tbl} Take 1 tablet by mouth daily. [facility] norgestimat e-ethinyl estradioL (ORTHO TRI-CYCLEN, 28,) 0.18/0.215/ 0.25 mg-35 mcg (28) tablet 11-07 00:00: 00 Yes [id number] 1{tbl} Take 1 tablet by mouth daily. [facility] norgestimat e-ethinyl estradioL (ORTHO TRI-CYCLEN, 28,) 0.18/0.215/ 0.25 mg-35 mcg (28) tablet 11-07 00:00: 00 Yes [id number] 1{tbl} Take 1 tablet by mouth daily. [facility] norgestimat e-ethinyl estradioL (ORTHO TRI-CYCLEN, 28,) 0.18/0.215/ 0.25 mg-35 mcg (28) tablet 11-07 00:00: 00 Yes [id number] 1{tbl} Take 1 tablet by mouth daily. [facility] norgestimat e-ethinyl estradioL (ORTHO TRI-CYCLEN, 28,) 0.18/0.215/ 0.25 mg-35 mcg (28) tablet 11-07 00:00: 00 Yes [id number] 1{tbl} Take 1 tablet by mouth daily. [facility] norgestimat e-ethinyl estradioL (ORTHO TRI-CYCLEN, 28,) 0.18/0.215/ 0.25 mg-35 mcg (28) tablet 11-07 00:00: 00 Yes [id number] 1{tbl} Take 1 tablet by mouth daily. [facility] norgestimat e-ethinyl estradioL (ORTHO TRI-CYCLEN, 28,) 0.18/0.215/ 0.25 mg-35 mcg (28) tablet 6-08 00:00: 00 Yes [id number] 1{tbl} Take 1 tablet by mouth daily. [facility] medroxyPROG ESTERone (PROVERA) 10 mg tablet 10-19 00:00: 00 10-30 04:59 :00 No [id number] 10mg Take 1 tablet by mouth daily for 10 days. [facility] medroxyPROG ESTERone (PROVERA) 10 mg tablet 10-19 00:00: 00 10-30 04:59 :00 No [id number] 10mg Take 1 tablet by mouth daily for 10 days. [facility] medroxyPROG ESTERone (PROVERA) 10 mg tablet 10-19 00:00: 00 10-30 04:59 :00 No [id number] 10mg Take 1 tablet by mouth daily for 10 days. [facility] medroxyPROG ESTERone (PROVERA) 10 mg tablet 10-19 00:00: 00 10-30 04:59 :00 No [id number] 10mg Take 1 tablet by mouth daily for 10 days. [facility] phentermine 37.5 mg capsule 10-17 18:21: 18 Yes 37.5mg Take 37.5 mg by mouth every morning. [facility] phentermine 37.5 mg capsule 10-17 18:21: 18 Yes 37.5mg Take 37.5 mg by mouth every morning. [facility] phentermine 37.5 mg capsule 10-17 18:21: 18 Yes 37.5mg Take 37.5 mg by mouth every morning. [facility] phentermine 37.5 mg capsule 10-17 18:21: 18 Yes 37.5mg Take 37.5 mg by mouth every morning. [facility] phentermine 37.5 mg capsule 10-17 18:21: 18 Yes 37.5mg Take 37.5 mg by mouth every morning. [facility] phentermine 37.5 mg capsule 10-17 18:21: 18 Yes 37.5mg Take 37.5 mg by mouth every morning. [facility] phentermine 37.5 mg capsule 10-17 18:21: 18 Yes 37.5mg Take 37.5 mg by mouth every morning. [facility] phentermine 37.5 mg capsule 10-17 18:21: 18 Yes 37.5mg Take 37.5 mg by mouth every morning. [facility] phentermine 37.5 mg capsule 10-17 18:21: 18 Yes 37.5mg Take 37.5 mg by mouth every morning. [facility] phentermine 37.5 mg capsule 10-17 18:21: 18 Yes 37.5mg Take 37.5 mg by mouth every morning. [facility] phentermine 37.5 mg capsule 10-17 18:21: 18 Yes 37.5mg Take 37.5 mg by mouth every morning. [facility] phentermine 37.5 mg capsule 10-17 18:21: 18 Yes 37.5mg Take 37.5 mg by mouth every morning. [facility] phentermine 37.5 mg capsule 10-17 18:21: 18 Yes 37.5mg Take 37.5 mg by mouth every morning. [facility] phentermine 37.5 mg capsule 10-17 18:21: 18 Yes 37.5mg Take 37.5 mg by mouth every morning. [facility] phentermine 37.5 mg capsule 10-17 18:21: 18 Yes 37.5mg Take 37.5 mg by mouth every morning. [facility] phentermine 37.5 mg capsule 10-17 18:21: 18 Yes 37.5mg Take 37.5 mg by mouth every morning. [facility] phentermine 37.5 mg capsule 10-17 18:21: 18 Yes 37.5mg Take 37.5 mg by mouth every morning. [facility] phentermine 37.5 mg capsule 10-17 18:21: 18 Yes 37.5mg Take 37.5 mg by mouth every morning. [facility] phentermine 37.5 mg capsule 10-17 18:21: 18 Yes 37.5mg Take 37.5 mg by mouth every morning. [facility] phentermine 37.5 mg capsule 10-17 13:21: 18 Yes 37.5mg Take 37.5 mg by mouth every morning. [facility] phentermine 37.5 mg capsule 10-17 13:21: 18 Yes 37.5mg Take 37.5 mg by mouth every morning. [facility] phentermine 37.5 mg capsule 10-17 13:21: 18 Yes 37.5mg Take 37.5 mg by mouth every morning. [facility] phentermine 37.5 mg capsule 10-17 13:21: 18 Yes 37.5mg Take 37.5 mg by mouth every morning. [facility] phentermine 37.5 mg capsule 10-17 13:21: 18 Yes 37.5mg Take 37.5 mg by mouth every morning. [facility] phentermine 37.5 mg capsule 10-17 13:21: 18 Yes 37.5mg Take 37.5 mg by mouth every morning. [facility] phentermine 37.5 mg capsule 10-17 13:21: 18 Yes 37.5mg Take 37.5 mg by mouth every morning. [facility] phentermine 37.5 mg capsule 10-17 13:21: 18 Yes 37.5mg Take 37.5 mg by mouth every morning. [facility] phentermine 37.5 mg capsule 10-17 13:21: 18 Yes 37.5mg Take 37.5 mg by mouth every morning. [facility] phentermine 37.5 mg capsule 10-17 13:21: 18 Yes 37.5mg Take 37.5 mg by mouth every morning. [facility] phentermine 37.5 mg capsule 10-17 13:21: 18 Yes 37.5mg Take 37.5 mg by mouth every morning. [facility] phentermine 37.5 mg capsule 10-17 13:21: 18 Yes 37.5mg Take 37.5 mg by mouth every morning. [facility] phentermine 37.5 mg capsule 10-17 13:21: 18 Yes 37.5mg Take 37.5 mg by mouth every morning. [facility] ketorolac (TORADOL) injection 30 mg 08-09 05:45: 00 08-09 05:42 :00 No 30mg 30 mg, Slow IV Push, ONCE, 1 dose, [facility] 08/08/20 at 2345, [facility] : MORENA BENTON [facility] sulfamethox azole-trime thoprim (BACTRIM DS) 800-160 mg per tablet 02-15 00:00: 00 Yes 2{tbl} Take 2 tablets by mouth 2 (two) times daily. [facility] traMADOL (ULTRAM) 50 mg tablet 02-15 00:00: 00 Yes 50mg Take 1-2 tablets by mouth every 8 (eight) hours as needed (severe pain, alternate with ibuprofen) . [facility] sulfamethox azole-trime thoprim (BACTRIM DS) 800-160 mg per tablet 02-15 00:00: 00 Yes 2{tbl} Take 2 tablets by mouth 2 (two) times daily. [facility] traMADOL (ULTRAM) 50 mg tablet 02-15 00:00: 00 Yes 50mg Take 1-2 tablets by mouth every 8 (eight) hours as needed (severe pain, alternate with ibuprofen) . [facility] sulfamethox azole-trime thoprim (BACTRIM DS) 800-160 mg per tablet 02-15 00:00: 00 Yes 2{tbl} Take 2 tablets by mouth 2 (two) times daily. [facility] traMADOL (ULTRAM) 50 mg tablet 02-15 00:00: 00 Yes 50mg Take 1-2 tablets by mouth every 8 (eight) hours as needed (severe pain, alternate with ibuprofen) . [facility] sulfamethox azole-trime thoprim (BACTRIM DS) 800-160 mg per tablet 02-15 00:00: 00 Yes 2{tbl} Take 2 tablets by mouth 2 (two) times daily. [facility] traMADOL (ULTRAM) 50 mg tablet 02-15 00:00: 00 Yes 50mg Take 1-2 tablets by mouth every 8 (eight) hours as needed (severe pain, alternate with ibuprofen) . [facility] sulfamethox azole-trime thoprim (BACTRIM DS) 800-160 mg per tablet 02-15 00:00: 00 10-17 00:00 :00 No 2{tbl} Take 2 tablets by mouth 2 (two) times daily. [facility] traMADOL (ULTRAM) 50 mg tablet 02-15 00:00: 00 10-17 00:00 :00 No 50mg Take 1-2 tablets by mouth every 8 (eight) hours as needed (severe pain, alternate with ibuprofen) . [facility] sulfamethox azole-trime thoprim (BACTRIM DS) 800-160 mg per tablet 02-15 00:00: 00 10-17 00:00 :00 No 2{tbl} Take 2 tablets by mouth 2 (two) times daily. [facility] traMADOL (ULTRAM) 50 mg tablet 02-15 00:00: 00 10-17 00:00 :00 No 50mg Take 1-2 tablets by mouth every 8 (eight) hours as needed (severe pain, alternate with ibuprofen) . [facility] Immunizations Ordered Immunization Name Filled Immunization Name Date Status Comments Source HPV9 2020-10-17 00:00:00 Completed [facility] HPV9 2020-10-17 00:00:00 Completed [facility] HPV9 2020-10-17 00:00:00 Completed [facility] HPV9 2020-10-17 00:00:00 Completed [facility] HPV9 2020-10-17 00:00:00 Completed [facility] HPV9 2020-10-17 00:00:00 Completed [facility] HPV9 2020-10-17 00:00:00 Completed [facility] HPV9 2020-10-17 00:00:00 Completed [facility] HPV9 2020-10-17 00:00:00 Completed [facility] HPV9 2020-10-17 00:00:00 Completed [facility] HPV9 2020-10-17 00:00:00 Completed [facility] HPV9 2020-10-17 00:00:00 Completed [facility] HPV9 2020-10-17 00:00:00 Completed [facility] HPV9 2020-10-17 00:00:00 Completed [facility] HPV9 2020-10-17 00:00:00 Completed [facility] HPV9 2020-10-17 00:00:00 Completed [facility] HPV9 2020-10-17 00:00:00 Completed [facility] HPV9 2020-10-17 00:00:00 Completed [facility] HPV9 2020-10-17 00:00:00 Completed [facility] HPV9 2020-10-17 00:00:00 Completed [facility] HPV9 2020-10-17 00:00:00 Completed [facility] HPV9 2020-10-17 00:00:00 Completed [facility] HPV9 2020-10-17 00:00:00 Completed [facility] HPV9 2020-10-17 00:00:00 Completed [facility] HPV9 2020-10-17 00:00:00 Completed [facility] HPV9 2020-10-17 00:00:00 Completed [facility] HPV9 2020-10-17 00:00:00 Completed [facility] HPV 2018-09-15 00:00:00 Completed [facility] Meningococcal Vaccine 2018-09-15 00:00:00 Completed [facility] HPV 2018-09-15 00:00:00 Completed [facility] Meningococcal Vaccine 2018-09-15 00:00:00 Completed [facility] HPV 2018-09-15 00:00:00 Completed [facility] Meningococcal Vaccine 2018-09-15 00:00:00 Completed [facility] HPV 2018-09-15 00:00:00 Completed [facility] Meningococcal Vaccine 2018-09-15 00:00:00 Completed [facility] HPV 2018-09-15 00:00:00 Completed [facility] Meningococcal Vaccine 2018-09-15 00:00:00 Completed [facility] HPV 2018-09-15 00:00:00 Completed [facility] Meningococcal Vaccine 2018-09-15 00:00:00 Completed [facility] HPV 2018-09-15 00:00:00 Completed [facility] Meningococcal Vaccine 2018-09-15 00:00:00 Completed [facility] HPV 2018-09-15 00:00:00 Completed [facility] Meningococcal Vaccine 2018-09-15 00:00:00 Completed [facility] HPV 2018-09-15 00:00:00 Completed [facility] Meningococcal Vaccine 2018-09-15 00:00:00 Completed [facility] HPV 2018-09-15 00:00:00 Completed [facility] Meningococcal Vaccine 2018-09-15 00:00:00 Completed [facility] HPV 2018-09-15 00:00:00 Completed [facility] Meningococcal Vaccine 2018-09-15 00:00:00 Completed [facility] HPV 2018-09-15 00:00:00 Completed [facility] Meningococcal Vaccine 2018-09-15 00:00:00 Completed [facility] HPV 2018-09-15 00:00:00 Completed [facility] Meningococcal Vaccine 2018-09-15 00:00:00 Completed [facility] HPV 2018-09-15 00:00:00 Completed [facility] Meningococcal Vaccine 2018-09-15 00:00:00 Completed [facility] HPV 2018-09-15 00:00:00 Completed [facility] Meningococcal Vaccine 2018-09-15 00:00:00 Completed [facility] HPV 2018-09-15 00:00:00 Completed [facility] Meningococcal Vaccine 2018-09-15 00:00:00 Completed [facility] HPV 2018-09-15 00:00:00 Completed [facility] Meningococcal Vaccine 2018-09-15 00:00:00 Completed [facility] HPV 2018-09-15 00:00:00 Completed [facility] Meningococcal Vaccine 2018-09-15 00:00:00 Completed [facility] HPV 2018-09-15 00:00:00 Completed [facility] Meningococcal Vaccine 2018-09-15 00:00:00 Completed [facility] HPV 2018-09-15 00:00:00 Completed [facility] Meningococcal Vaccine 2018-09-15 00:00:00 Completed [facility] HPV 2018-09-15 00:00:00 Completed [facility] Meningococcal Vaccine 2018-09-15 00:00:00 Completed [facility] HPV 2018-09-15 00:00:00 Completed [facility] Meningococcal Vaccine 2018-09-15 00:00:00 Completed [facility] HPV 2018-09-15 00:00:00 Completed [facility] Meningococcal Vaccine 2018-09-15 00:00:00 Completed [facility] HPV 2018-09-15 00:00:00 Completed [facility] Meningococcal Vaccine 2018-09-15 00:00:00 Completed [facility] HPV 2018-09-15 00:00:00 Completed [facility] Meningococcal Vaccine 2018-09-15 00:00:00 Completed [facility] HPV 2018-09-15 00:00:00 Completed [facility] Meningococcal Vaccine 2018-09-15 00:00:00 Completed [facility] HPV 2018-09-15 00:00:00 Completed [facility] Meningococcal Vaccine 2018-09-15 00:00:00 Completed [facility] HEPATITIS A 2012-01-21 00:00:00 Completed [facility] Meningococcal Vaccine 2012-01-21 00:00:00 Completed [facility] TDAP 2012-01-21 00:00:00 Completed [facility] Varicella (varivax)(chicken pox) 2012-01-21 00:00:00 Completed [facility] HEPATITIS A 2012-01-21 00:00:00 Completed [facility] Meningococcal Vaccine 2012-01-21 00:00:00 Completed [facility] TDAP 2012-01-21 00:00:00 Completed [facility] Varicella (varivax)(chicken pox) 2012-01-21 00:00:00 Completed [facility] HEPATITIS A 2012-01-21 00:00:00 Completed [facility] Meningococcal Vaccine 2012-01-21 00:00:00 Completed [facility] TDAP 2012-01-21 00:00:00 Completed [facility] Varicella (varivax)(chicken pox) 2012-01-21 00:00:00 [facility] [facility] 2012-01-21 00:00:00 Completed [facility] Meningococcal Vaccine 2012-01-21 00:00:00 Completed [facility] TDAP 2012-01-21 00:00:00 Completed [facility] Varicella (varivax)(chicken pox) 2012-01-21 00:00:00 Completed [facility] HEPATITIS A 2012-01-21 00:00:00 Completed [facility] Meningococcal Vaccine 2012-01-21 00:00:00 Completed [facility] TDAP 2012-01-21 00:00:00 Completed [facility] Varicella (varivax)(chicken pox) 2012-01-21 00:00:00 Completed [facility] HEPATITIS A 2012-01-21 00:00:00 Completed [facility] Meningococcal Vaccine 2012-01-21 00:00:00 Completed [facility] TDAP 2012-01-21 00:00:00 Completed [facility] Varicella (varivax)(chicken pox) 2012-01-21 00:00:00 Completed [facility] HEPATITIS A 2012-01-21 00:00:00 Completed [facility] Meningococcal Vaccine 2012-01-21 00:00:00 Completed [facility] TDAP 2012-01-21 00:00:00 Completed [facility] Varicella (varivax)(chicken pox) 2012-01-21 00:00:00 Completed [facility] HEPATITIS A 2012-01-21 00:00:00 Completed [facility] Meningococcal Vaccine 2012-01-21 00:00:00 Completed [facility] TDAP 2012-01-21 00:00:00 Completed [facility] Varicella (varivax)(chicken pox) 2012-01-21 00:00:00 Completed [facility] HEPATITIS A 2012-01-21 00:00:00 Completed [facility] Meningococcal Vaccine 2012-01-21 00:00:00 Completed [facility] TDAP 2012-01-21 00:00:00 Completed [facility] Varicella (varivax)(chicken pox) 2012-01-21 00:00:00 Completed [facility] HEPATITIS A 2012-01-21 00:00:00 Completed [facility] Meningococcal Vaccine 2012-01-21 00:00:00 Completed [facility] TDAP 2012-01-21 00:00:00 Completed [facility] Varicella (varivax)(chicken pox) 2012-01-21 00:00:00 Completed [facility] HEPATITIS A 2012-01-21 00:00:00 Completed [facility] Meningococcal Vaccine 2012-01-21 00:00:00 Completed [facility] TDAP 2012-01-21 00:00:00 Completed [facility] Varicella (varivax)(chicken pox) 2012-01-21 00:00:00 Completed [facility] HEPATITIS A 2012-01-21 00:00:00 Completed [facility] Meningococcal Vaccine 2012-01-21 00:00:00 Completed [facility] TDAP 2012-01-21 00:00:00 Completed [facility] Varicella (varivax)(chicken pox) 2012-01-21 00:00:00 Completed [facility] HEPATITIS A 2012-01-21 00:00:00 Completed [facility] Meningococcal Vaccine 2012-01-21 00:00:00 Completed [facility] TDAP 2012-01-21 00:00:00 Completed [facility] Varicella (varivax)(chicken pox) 2012-01-21 00:00:00 Completed [facility] HEPATITIS A 2012-01-21 00:00:00 Completed [facility] Meningococcal Vaccine 2012-01-21 00:00:00 Completed [facility] TDAP 2012-01-21 00:00:00 Completed [facility] Varicella (varivax)(chicken pox) 2012-01-21 00:00:00 Completed [facility] HEPATITIS A 2012-01-21 00:00:00 Completed [facility] Meningococcal Vaccine 2012-01-21 00:00:00 Completed [facility] TDAP 2012-01-21 00:00:00 Completed [facility] Varicella (varivax)(chicken pox) 2012-01-21 00:00:00 Completed [facility] HEPATITIS A 2012-01-21 00:00:00 Completed [facility] Meningococcal Vaccine 2012-01-21 00:00:00 Completed [facility] TDAP 2012-01-21 00:00:00 Completed [facility] Varicella (varivax)(chicken pox) 2012-01-21 00:00:00 Completed [facility] HEPATITIS A 2012-01-21 00:00:00 Completed [facility] Meningococcal Vaccine 2012-01-21 00:00:00 Completed [facility] TDAP 2012-01-21 00:00:00 Completed [facility] Varicella (varivax)(chicken pox) 2012-01-21 00:00:00 Completed [facility] HEPATITIS A 2012-01-21 00:00:00 Completed [facility] Meningococcal Vaccine 2012-01-21 00:00:00 Completed [facility] TDAP 2012-01-21 00:00:00 Completed [facility] Varicella (varivax)(chicken pox) 2012-01-21 00:00:00 Completed [facility] HEPATITIS A 2012-01-21 00:00:00 Completed [facility] Meningococcal Vaccine 2012-01-21 00:00:00 Completed [facility] TDAP 2012-01-21 00:00:00 Completed [facility] Varicella (varivax)(chicken pox) 2012-01-21 00:00:00 Completed [facility] HEPATITIS A 2012-01-21 00:00:00 Completed [facility] Meningococcal Vaccine 2012-01-21 00:00:00 Completed [facility] TDAP 2012-01-21 00:00:00 Completed [facility] Varicella (varivax)(chicken pox) 2012-01-21 00:00:00 Completed [facility] HEPATITIS A 2012-01-21 00:00:00 Completed [facility] Meningococcal Vaccine 2012-01-21 00:00:00 Completed [facility] TDAP 2012-01-21 00:00:00 Completed [facility] Varicella (varivax)(chicken pox) 2012-01-21 00:00:00 Completed [facility] HEPATITIS A 2012-01-21 00:00:00 Completed [facility] Meningococcal Vaccine 2012-01-21 00:00:00 Completed [facility] TDAP 2012-01-21 00:00:00 Completed [facility] Varicella (varivax)(chicken pox) 2012-01-21 00:00:00 Completed [facility] HEPATITIS A 2012-01-21 00:00:00 Completed [facility] Meningococcal Vaccine 2012-01-21 00:00:00 Completed [facility] TDAP 2012-01-21 00:00:00 Completed [facility] Varicella (varivax)(chicken pox) 2012-01-21 00:00:00 Completed [facility] HEPATITIS A 2012-01-21 00:00:00 Completed [facility] Meningococcal Vaccine 2012-01-21 00:00:00 Completed [facility] TDAP 2012-01-21 00:00:00 Completed [facility] Varicella (varivax)(chicken pox) 2012-01-21 00:00:00 Completed [facility] HEPATITIS A 2012-01-21 00:00:00 Completed [facility] Meningococcal Vaccine 2012-01-21 00:00:00 Completed [facility] TDAP 2012-01-21 00:00:00 Completed [facility] Varicella (varivax)(chicken pox) 2012-01-21 00:00:00 Completed [facility] HEPATITIS A 2012-01-21 00:00:00 Completed [facility] Meningococcal Vaccine 2012-01-21 00:00:00 Completed [facility] TDAP 2012-01-21 00:00:00 Completed [facility] Varicella (varivax)(chicken pox) 2012-01-21 00:00:00 Completed [facility] HEPATITIS A 2012-01-21 00:00:00 Completed [facility] Meningococcal Vaccine 2012-01-21 00:00:00 Completed [facility] TDAP 2012-01-21 00:00:00 Completed [facility] Varicella (varivax)(chicken pox) 2012-01-21 00:00:00 Completed [facility] MMR 2005-01-08 00:00:00 Completed [facility] MMR 2005-01-08 00:00:00 Completed [facility] MMR 2005-01-08 00:00:00 Completed [facility] MMR 2005-01-08 00:00:00 Completed [facility] MMR 2005-01-08 00:00:00 Completed [facility] MMR 2005-01-08 00:00:00 Completed [facility] MMR 2005-01-08 00:00:00 Completed [facility] MMR 2005-01-08 00:00:00 Completed [facility] MMR 2005-01-08 00:00:00 Completed [facility] MMR 2005-01-08 00:00:00 Completed [facility] MMR 2005-01-08 00:00:00 Completed [facility] MMR 2005-01-08 00:00:00 Completed [facility] MMR 2005-01-08 00:00:00 Completed [facility] MMR 2005-01-08 00:00:00 Completed [facility] MMR 2005-01-08 00:00:00 Completed [facility] MMR 2005-01-08 00:00:00 Completed [facility] MMR 2005-01-08 00:00:00 Completed [facility] MMR 2005-01-08 00:00:00 Completed [facility] MMR 2005-01-08 00:00:00 Completed [facility] MMR 2005-01-08 00:00:00 Completed [facility] MMR 2005-01-08 00:00:00 Completed [facility] MMR 2005-01-08 00:00:00 Completed [facility] MMR 2005-01-08 00:00:00 Completed [facility] MMR 2005-01-08 00:00:00 Completed [facility] MMR 2005-01-08 00:00:00 Completed [facility] MMR 2005-01-08 00:00:00 Completed [facility] MMR 2005-01-08 00:00:00 Completed [facility] DTAP 2004-12-07 00:00:00 Completed [facility] MMR 2004-12-07 00:00:00 Completed [facility] Pneumococcal 13 Conjugate, PCV13 (Prevnar 13) 2004-12-07 00:00:00 Completed [facility] Polio (IPV/OPV) 2004-12-07 00:00:00 Completed [facility] Varicella (varivax)(chicken pox) 2004-12-07 00:00:00 Completed [facility] DTAP 2004-12-07 00:00:00 Completed [facility] MMR 2004-12-07 00:00:00 Completed [facility] Pneumococcal 13 Conjugate, PCV13 (Prevnar 13) 2004-12-07 00:00:00 Completed [facility] Polio (IPV/OPV) 2004-12-07 00:00:00 Completed [facility] Varicella (varivax)(chicken pox) 2004-12-07 00:00:00 Completed [facility] DTAP 2004-12-07 00:00:00 Completed [facility] MMR 2004-12-07 00:00:00 Completed [facility] Pneumococcal 13 Conjugate, PCV13 (Prevnar 13) 2004-12-07 00:00:00 Completed [facility] Polio (IPV/OPV) 2004-12-07 00:00:00 Completed [facility] Varicella (varivax)(chicken pox) 2004-12-07 00:00:00 Completed [facility] DTAP 2004-12-07 00:00:00 Completed [facility] MMR 2004-12-07 00:00:00 Completed [facility] Pneumococcal 13 Conjugate, PCV13 (Prevnar 13) 2004-12-07 00:00:00 Completed [facility] Polio (IPV/OPV) 2004-12-07 00:00:00 Completed [facility] Varicella (varivax)(chicken pox) 2004-12-07 00:00:00 Completed [facility] DTAP 2004-12-07 00:00:00 Completed [facility] MMR 2004-12-07 00:00:00 Completed [facility] Pneumococcal 13 Conjugate, PCV13 (Prevnar 13) 2004-12-07 00:00:00 Completed [facility] Polio (IPV/OPV) 2004-12-07 00:00:00 Completed [facility] Varicella (varivax)(chicken pox) 2004-12-07 00:00:00 Completed [facility] DTAP 2004-12-07 00:00:00 Completed [facility] MMR 2004-12-07 00:00:00 Completed [facility] Pneumococcal 13 Conjugate, PCV13 (Prevnar 13) 2004-12-07 00:00:00 Completed [facility] Polio (IPV/OPV) 2004-12-07 00:00:00 Completed [facility] Varicella (varivax)(chicken pox) 2004-12-07 00:00:00 Completed [facility] DTAP 2004-12-07 00:00:00 Completed [facility] MMR 2004-12-07 00:00:00 Completed [facility] Pneumococcal 13 Conjugate, PCV13 (Prevnar 13) 2004-12-07 00:00:00 Completed [facility] Polio (IPV/OPV) 2004-12-07 00:00:00 Completed [facility] Varicella (varivax)(chicken pox) 2004-12-07 00:00:00 Completed [facility] DTAP 2004-12-07 00:00:00 Completed [facility] MMR 2004-12-07 00:00:00 Completed [facility] Pneumococcal 13 Conjugate, PCV13 (Prevnar 13) 2004-12-07 00:00:00 Completed [facility] Polio (IPV/OPV) 2004-12-07 00:00:00 Completed [facility] Varicella (varivax)(chicken pox) 2004-12-07 00:00:00 Completed [facility] DTAP 2004-12-07 00:00:00 Completed [facility] MMR 2004-12-07 00:00:00 Completed [facility] Pneumococcal 13 Conjugate, PCV13 (Prevnar 13) 2004-12-07 00:00:00 Completed [facility] Polio (IPV/OPV) 2004-12-07 00:00:00 Completed [facility] Varicella (varivax)(chicken pox) 2004-12-07 00:00:00 Completed [facility] DTAP 2004-12-07 00:00:00 Completed [facility] MMR 2004-12-07 00:00:00 Completed [facility] Pneumococcal 13 Conjugate, PCV13 (Prevnar 13) 2004-12-07 00:00:00 Completed [facility] Polio (IPV/OPV) 2004-12-07 00:00:00 Completed [facility] Varicella (varivax)(chicken pox) 2004-12-07 00:00:00 Completed [facility] DTAP 2004-12-07 00:00:00 Completed [facility] MMR 2004-12-07 00:00:00 Completed [facility] Pneumococcal 13 Conjugate, PCV13 (Prevnar 13) 2004-12-07 00:00:00 Completed [facility] Polio (IPV/OPV) 2004-12-07 00:00:00 Completed [facility] Varicella (varivax)(chicken pox) 2004-12-07 00:00:00 Completed [facility] DTAP 2004-12-07 00:00:00 Completed [facility] MMR 2004-12-07 00:00:00 Completed [facility] Pneumococcal 13 Conjugate, PCV13 (Prevnar 13) 2004-12-07 00:00:00 Completed [facility] Polio (IPV/OPV) 2004-12-07 00:00:00 Completed [facility] Varicella (varivax)(chicken pox) 2004-12-07 00:00:00 Completed [facility] DTAP 2004-12-07 00:00:00 Completed [facility] MMR 2004-12-07 00:00:00 Completed [facility] Pneumococcal 13 Conjugate, PCV13 (Prevnar 13) 2004-12-07 00:00:00 Completed [facility] Polio (IPV/OPV) 2004-12-07 00:00:00 Completed [facility] Varicella (varivax)(chicken pox) 2004-12-07 00:00:00 Completed [facility] DTAP 2004-12-07 00:00:00 Completed [facility] MMR 2004-12-07 00:00:00 Completed [facility] Pneumococcal 13 Conjugate, PCV13 (Prevnar 13) 2004-12-07 00:00:00 Completed [facility] Polio (IPV/OPV) 2004-12-07 00:00:00 Completed [facility] Varicella (varivax)(chicken pox) 2004-12-07 00:00:00 Completed [facility] DTAP 2004-12-07 00:00:00 Completed [facility] MMR 2004-12-07 00:00:00 Completed [facility] Pneumococcal 13 Conjugate, PCV13 (Prevnar 13) 2004-12-07 00:00:00 Completed [facility] Polio (IPV/OPV) 2004-12-07 00:00:00 Completed [facility] Varicella (varivax)(chicken pox) 2004-12-07 00:00:00 Completed [facility] DTAP 2004-12-07 00:00:00 Completed [facility] MMR 2004-12-07 00:00:00 Completed [facility] Pneumococcal 13 Conjugate, PCV13 (Prevnar 13) 2004-12-07 00:00:00 Completed [facility] Polio (IPV/OPV) 2004-12-07 00:00:00 Completed [facility] Varicella (varivax)(chicken pox) 2004-12-07 00:00:00 Completed [facility] DTAP 2004-12-07 00:00:00 Completed [facility] MMR 2004-12-07 00:00:00 Completed [facility] Pneumococcal 13 Conjugate, PCV13 (Prevnar 13) 2004-12-07 00:00:00 Completed [facility] Polio (IPV/OPV) 2004-12-07 00:00:00 Completed [facility] Varicella (varivax)(chicken pox) 2004-12-07 00:00:00 Completed [facility] DTAP 2004-12-07 00:00:00 Completed [facility] MMR 2004-12-07 00:00:00 Completed [facility] Pneumococcal 13 Conjugate, PCV13 (Prevnar 13) 2004-12-07 00:00:00 Completed [facility] Polio (IPV/OPV) 2004-12-07 00:00:00 Completed [facility] Varicella (varivax)(chicken pox) 2004-12-07 00:00:00 Completed [facility] DTAP 2004-12-07 00:00:00 Completed [facility] MMR 2004-12-07 00:00:00 Completed [facility] Pneumococcal 13 Conjugate, PCV13 (Prevnar 13) 2004-12-07 00:00:00 Completed [facility] Polio (IPV/OPV) 2004-12-07 00:00:00 Completed [facility] Varicella (varivax)(chicken pox) 2004-12-07 00:00:00 Completed [facility] DTAP 2004-12-07 00:00:00 Completed [facility] MMR 2004-12-07 00:00:00 Completed [facility] Pneumococcal 13 Conjugate, PCV13 (Prevnar 13) 2004-12-07 00:00:00 Completed [facility] Polio (IPV/OPV) 2004-12-07 00:00:00 Completed [facility] Varicella (varivax)(chicken pox) 2004-12-07 00:00:00 Completed [facility] DTAP 2004-12-07 00:00:00 Completed [facility] MMR 2004-12-07 00:00:00 Completed [facility] Pneumococcal 13 Conjugate, PCV13 (Prevnar 13) 2004-12-07 00:00:00 Completed [facility] Polio (IPV/OPV) 2004-12-07 00:00:00 Completed [facility] Varicella (varivax)(chicken pox) 2004-12-07 00:00:00 Completed [facility] DTAP 2004-12-07 00:00:00 Completed [facility] MMR 2004-12-07 00:00:00 Completed [facility] Pneumococcal 13 Conjugate, PCV13 (Prevnar 13) 2004-12-07 00:00:00 Completed [facility] Polio (IPV/OPV) 2004-12-07 00:00:00 Completed [facility] Varicella (varivax)(chicken pox) 2004-12-07 00:00:00 Completed [facility] DTAP 2004-12-07 00:00:00 Completed [facility] MMR 2004-12-07 00:00:00 Completed [facility] Pneumococcal 13 Conjugate, PCV13 (Prevnar 13) 2004-12-07 00:00:00 Completed [facility] Polio (IPV/OPV) 2004-12-07 00:00:00 Completed [facility] Varicella (varivax)(chicken pox) 2004-12-07 00:00:00 Completed [facility] DTAP 2004-12-07 00:00:00 Completed [facility] MMR 2004-12-07 00:00:00 Completed [facility] Pneumococcal 13 Conjugate, PCV13 (Prevnar 13) 2004-12-07 00:00:00 Completed [facility] Polio (IPV/OPV) 2004-12-07 00:00:00 Completed [facility] Varicella (varivax)(chicken pox) 2004-12-07 00:00:00 Completed [facility] DTAP 2004-12-07 00:00:00 Completed [facility] MMR 2004-12-07 00:00:00 Completed [facility] Pneumococcal 13 Conjugate, PCV13 (Prevnar 13) 2004-12-07 00:00:00 Completed [facility] Polio (IPV/OPV) 2004-12-07 00:00:00 Completed [facility] Varicella (varivax)(chicken pox) 2004-12-07 00:00:00 Completed [facility] DTAP 2004-12-07 00:00:00 Completed [facility] MMR 2004-12-07 00:00:00 Completed [facility] Pneumococcal 13 Conjugate, PCV13 (Prevnar 13) 2004-12-07 00:00:00 Completed [facility] Polio (IPV/OPV) 2004-12-07 00:00:00 Completed [facility] Varicella (varivax)(chicken pox) 2004-12-07 00:00:00 Completed [facility] DTAP 2004-12-07 00:00:00 Completed [facility] MMR 2004-12-07 00:00:00 Completed [facility] Pneumococcal 13 Conjugate, PCV13 (Prevnar 13) 2004-12-07 00:00:00 Completed [facility] Polio (IPV/OPV) 2004-12-07 00:00:00 Completed [facility] Varicella (varivax)(chicken pox) 2004-12-07 00:00:00 Completed [facility] DTAP 2001-03-04 00:00:00 Completed [facility] HIB 3 Dose Schedule 2001-03-04 00:00:00 Completed [facility] Hep B, Adol or Pedi Dosage 2001-03-04 00:00:00 Completed [facility] Polio (IPV/OPV) 2001-03-04 00:00:00 Completed [facility] DTAP 2001-03-04 00:00:00 Completed [facility] HIB 3 Dose Schedule 2001-03-04 00:00:00 Completed [facility] Hep B, Adol or Pedi Dosage 2001-03-04 00:00:00 Completed [facility] Polio (IPV/OPV) 2001-03-04 00:00:00 Completed [facility] DTAP 2001-03-04 00:00:00 Completed [facility] HIB 3 Dose Schedule 2001-03-04 00:00:00 Completed [facility] Hep B, Adol or Pedi Dosage 2001-03-04 00:00:00 Completed [facility] Polio (IPV/OPV) 2001-03-04 00:00:00 Completed [facility] DTAP 2001-03-04 00:00:00 Completed [facility] HIB 3 Dose Schedule 2001-03-04 00:00:00 Completed [facility] Hep B, Adol or Pedi Dosage 2001-03-04 00:00:00 Completed [facility] Polio (IPV/OPV) 2001-03-04 00:00:00 Completed [facility] DTAP 2001-03-04 00:00:00 Completed [facility] HIB 3 Dose Schedule 2001-03-04 00:00:00 Completed [facility] Hep B, Adol or Pedi Dosage 2001-03-04 00:00:00 Completed [facility] Polio (IPV/OPV) 2001-03-04 00:00:00 Completed [facility] DTAP 2001-03-04 00:00:00 Completed [facility] HIB 3 Dose Schedule 2001-03-04 00:00:00 Completed [facility] Hep B, Adol or Pedi Dosage 2001-03-04 00:00:00 Completed [facility] Polio (IPV/OPV) 2001-03-04 00:00:00 Completed [facility] DTAP 2001-03-04 00:00:00 Completed [facility] HIB 3 Dose Schedule 2001-03-04 00:00:00 Completed [facility] Hep B, Adol or Pedi Dosage 2001-03-04 00:00:00 Completed [facility] Polio (IPV/OPV) 2001-03-04 00:00:00 Completed [facility] DTAP 2001-03-04 00:00:00 Completed [facility] HIB 3 Dose Schedule 2001-03-04 00:00:00 Completed [facility] Hep B, Adol or Pedi Dosage 2001-03-04 00:00:00 Completed [facility] Polio (IPV/OPV) 2001-03-04 00:00:00 Completed [facility] DTAP 2001-03-04 00:00:00 Completed [facility] HIB 3 Dose Schedule 2001-03-04 00:00:00 Completed [facility] Hep B, Adol or Pedi Dosage 2001-03-04 00:00:00 Completed [facility] Polio (IPV/OPV) 2001-03-04 00:00:00 Completed [facility] DTAP 2001-03-04 00:00:00 Completed [facility] HIB 3 Dose Schedule 2001-03-04 00:00:00 Completed [facility] Hep B, Adol or Pedi Dosage 2001-03-04 00:00:00 Completed [facility] Polio (IPV/OPV) 2001-03-04 00:00:00 Completed [facility] DTAP 2001-03-04 00:00:00 Completed [facility] HIB 3 Dose Schedule 2001-03-04 00:00:00 Completed [facility] Hep B, Adol or Pedi Dosage 2001-03-04 00:00:00 Completed [facility] Polio (IPV/OPV) 2001-03-04 00:00:00 Completed [facility] DTAP 2001-03-04 00:00:00 Completed [facility] HIB 3 Dose Schedule 2001-03-04 00:00:00 Completed [facility] Hep B, Adol or Pedi Dosage 2001-03-04 00:00:00 Completed [facility] Polio (IPV/OPV) 2001-03-04 00:00:00 Completed [facility] DTAP 2001-03-04 00:00:00 Completed [facility] HIB 3 Dose Schedule 2001-03-04 00:00:00 Completed [facility] Hep B, Adol or Pedi Dosage 2001-03-04 00:00:00 Completed [facility] Polio (IPV/OPV) 2001-03-04 00:00:00 Completed [facility] DTAP 2001-03-04 00:00:00 Completed [facility] HIB 3 Dose Schedule 2001-03-04 00:00:00 Completed [facility] Hep B, Adol or Pedi Dosage 2001-03-04 00:00:00 Completed [facility] Polio (IPV/OPV) 2001-03-04 00:00:00 Completed [facility] DTAP 2001-03-04 00:00:00 Completed [facility] HIB 3 Dose Schedule 2001-03-04 00:00:00 Completed [facility] Hep B, Adol or Pedi Dosage 2001-03-04 00:00:00 Completed [facility] Polio (IPV/OPV) 2001-03-04 00:00:00 Completed [facility] DTAP 2001-03-04 00:00:00 Completed [facility] HIB 3 Dose Schedule 2001-03-04 00:00:00 Completed [facility] Hep B, Adol or Pedi Dosage 2001-03-04 00:00:00 Completed [facility] Polio (IPV/OPV) 2001-03-04 00:00:00 Completed [facility] DTAP 2001-03-04 00:00:00 Completed [facility] HIB 3 Dose Schedule 2001-03-04 00:00:00 Completed [facility] Hep B, Adol or Pedi Dosage 2001-03-04 00:00:00 Completed [facility] Polio (IPV/OPV) 2001-03-04 00:00:00 Completed [facility] DTAP 2001-03-04 00:00:00 Completed [facility] HIB 3 Dose Schedule 2001-03-04 00:00:00 Completed [facility] Hep B, Adol or Pedi Dosage 2001-03-04 00:00:00 Completed [facility] Polio (IPV/OPV) 2001-03-04 00:00:00 Completed [facility] DTAP 2001-03-04 00:00:00 Completed [facility] HIB 3 Dose Schedule 2001-03-04 00:00:00 Completed [facility] Hep B, Adol or Pedi Dosage 2001-03-04 00:00:00 Completed [facility] Polio (IPV/OPV) 2001-03-04 00:00:00 Completed [facility] DTAP 2001-03-04 00:00:00 Completed [facility] HIB 3 Dose Schedule 2001-03-04 00:00:00 Completed [facility] Hep B, Adol or Pedi Dosage 2001-03-04 00:00:00 Completed [facility] Polio (IPV/OPV) 2001-03-04 00:00:00 Completed [facility] DTAP 2001-03-04 00:00:00 Completed [facility] HIB 3 Dose Schedule 2001-03-04 00:00:00 Completed [facility] Hep B, Adol or Pedi Dosage 2001-03-04 00:00:00 Completed [facility] Polio (IPV/OPV) 2001-03-04 00:00:00 Completed [facility] DTAP 2001-03-04 00:00:00 Completed [facility] HIB 3 Dose Schedule 2001-03-04 00:00:00 Completed [facility] Hep B, Adol or Pedi Dosage 2001-03-04 00:00:00 Completed [facility] Polio (IPV/OPV) 2001-03-04 00:00:00 Completed [facility] DTAP 2001-03-04 00:00:00 Completed [facility] HIB 3 Dose Schedule 2001-03-04 00:00:00 Completed [facility] Hep B, Adol or Pedi Dosage 2001-03-04 00:00:00 Completed [facility] Polio (IPV/OPV) 2001-03-04 00:00:00 Completed [facility] DTAP 2001-03-04 00:00:00 Completed [facility] HIB 3 Dose Schedule 2001-03-04 00:00:00 Completed [facility] Hep B, Adol or Pedi Dosage 2001-03-04 00:00:00 Completed [facility] Polio (IPV/OPV) 2001-03-04 00:00:00 Completed [facility] DTAP 2001-03-04 00:00:00 Completed [facility] HIB 3 Dose Schedule 2001-03-04 00:00:00 Completed [facility] Hep B, Adol or Pedi Dosage 2001-03-04 00:00:00 Completed [facility] Polio (IPV/OPV) 2001-03-04 00:00:00 Completed [facility] DTAP 2001-03-04 00:00:00 Completed [facility] HIB 3 Dose Schedule 2001-03-04 00:00:00 Completed [facility] Hep B, Adol or Pedi Dosage 2001-03-04 00:00:00 Completed [facility] Polio (IPV/OPV) 2001-03-04 00:00:00 Completed [facility] DTAP 2001-03-04 00:00:00 Completed [facility] HIB 3 Dose Schedule 2001-03-04 00:00:00 Completed [facility] Hep B, Adol or Pedi Dosage 2001-03-04 00:00:00 Completed [facility] Polio (IPV/OPV) 2001-03-04 00:00:00 Completed [facility] Hep B, Adol or Pedi Dosage 2000-03-05 00:00:00 Completed [facility] Polio (IPV/OPV) 2000-03-05 00:00:00 Completed [facility] DTAP 2000-03-05 00:00:00 Completed [facility] HIB 3 Dose Schedule 2000-03-05 00:00:00 Completed [facility] Hep B, Adol or Pedi Dosage 2000-03-05 00:00:00 Completed [facility] Polio (IPV/OPV) 2000-03-05 00:00:00 Completed [facility] DTAP 2000-03-05 00:00:00 Completed [facility] HIB 3 Dose Schedule 2000-03-05 00:00:00 Completed [facility] Hep B, Adol or Pedi Dosage 2000-03-05 00:00:00 Completed [facility] Polio (IPV/OPV) 2000-03-05 00:00:00 Completed [facility] DTAP 2000-03-05 00:00:00 Completed [facility] HIB 3 Dose Schedule 2000-03-05 00:00:00 Completed [facility] Hep B, Adol or Pedi Dosage 2000-03-05 00:00:00 Completed [facility] Polio (IPV/OPV) 2000-03-05 00:00:00 Completed [facility] DTAP 2000-03-05 00:00:00 Completed [facility] HIB 3 Dose Schedule 2000-03-05 00:00:00 Completed [facility] Hep B, Adol or Pedi Dosage 2000-03-05 00:00:00 Completed [facility] Polio (IPV/OPV) 2000-03-05 00:00:00 Completed [facility] DTAP 2000-03-05 00:00:00 Completed [facility] HIB 3 Dose Schedule 2000-03-05 00:00:00 Completed [facility] Hep B, Adol or Pedi Dosage 2000-03-05 00:00:00 Completed [facility] Polio (IPV/OPV) 2000-03-05 00:00:00 Completed [facility] DTAP 2000-03-05 00:00:00 Completed [facility] HIB 3 Dose Schedule 2000-03-05 00:00:00 Completed [facility] Hep B, Adol or Pedi Dosage 2000-03-05 00:00:00 Completed [facility] Polio (IPV/OPV) 2000-03-05 00:00:00 Completed [facility] DTAP 2000-03-05 00:00:00 Completed [facility] HIB 3 Dose Schedule 2000-03-05 00:00:00 Completed [facility] Hep B, Adol or Pedi Dosage 2000-03-05 00:00:00 Completed [facility] Polio (IPV/OPV) 2000-03-05 00:00:00 Completed [facility] DTAP 2000-03-05 00:00:00 Completed [facility] HIB 3 Dose Schedule 2000-03-05 00:00:00 Completed [facility] Hep B, Adol or Pedi Dosage 2000-03-05 00:00:00 Completed [facility] Polio (IPV/OPV) 2000-03-05 00:00:00 Completed [facility] DTAP 2000-03-05 00:00:00 Completed [facility] HIB 3 Dose Schedule 2000-03-05 00:00:00 Completed [facility] Hep B, Adol or Pedi Dosage 2000-03-05 00:00:00 Completed [facility] Polio (IPV/OPV) 2000-03-05 00:00:00 Completed [facility] DTAP 2000-03-05 00:00:00 Completed [facility] HIB 3 Dose Schedule 2000-03-05 00:00:00 Completed [facility] Hep B, Adol or Pedi Dosage 2000-03-05 00:00:00 Completed [facility] Polio (IPV/OPV) 2000-03-05 00:00:00 Completed [facility] DTAP 2000-03-05 00:00:00 Completed [facility] HIB 3 Dose Schedule 2000-03-05 00:00:00 Completed [facility] Hep B, Adol or Pedi Dosage 2000-03-05 00:00:00 Completed [facility] Polio (IPV/OPV) 2000-03-05 00:00:00 Completed [facility] DTAP 2000-03-05 00:00:00 Completed [facility] HIB 3 Dose Schedule 2000-03-05 00:00:00 Completed [facility] Hep B, Adol or Pedi Dosage 2000-03-05 00:00:00 Completed [facility] Polio (IPV/OPV) 2000-03-05 00:00:00 Completed [facility] DTAP 2000-03-05 00:00:00 Completed [facility] HIB 3 Dose Schedule 2000-03-05 00:00:00 Completed [facility] Hep B, Adol or Pedi Dosage 2000-03-05 00:00:00 Completed [facility] Polio (IPV/OPV) 2000-03-05 00:00:00 Completed [facility] DTAP 2000-03-05 00:00:00 Completed [facility] HIB 3 Dose Schedule 2000-03-05 00:00:00 Completed [facility] Hep B, Adol or Pedi Dosage 2000-03-05 00:00:00 Completed [facility] Polio (IPV/OPV) 2000-03-05 00:00:00 Completed [facility] DTAP 2000-03-05 00:00:00 Completed [facility] HIB 3 Dose Schedule 2000-03-05 00:00:00 Completed [facility] Hep B, Adol or Pedi Dosage 2000-03-05 00:00:00 Completed [facility] Polio (IPV/OPV) 2000-03-05 00:00:00 Completed [facility] DTAP 2000-03-05 00:00:00 Completed [facility] HIB 3 Dose Schedule 2000-03-05 00:00:00 Completed [facility] Hep B, Adol or Pedi Dosage 2000-03-05 00:00:00 Completed [facility] Polio (IPV/OPV) 2000-03-05 00:00:00 Completed [facility] DTAP 2000-03-05 00:00:00 Completed [facility] HIB 3 Dose Schedule 2000-03-05 00:00:00 Completed [facility] Hep B, Adol or Pedi Dosage 2000-03-05 00:00:00 Completed [facility] Polio (IPV/OPV) 2000-03-05 00:00:00 Completed [facility] DTAP 2000-03-05 00:00:00 Completed [facility] HIB 3 Dose Schedule 2000-03-05 00:00:00 Completed [facility] Hep B, Adol or Pedi Dosage 2000-03-05 00:00:00 Completed [facility] Polio (IPV/OPV) 2000-03-05 00:00:00 Completed [facility] DTAP 2000-03-05 00:00:00 Completed [facility] HIB 3 Dose Schedule 2000-03-05 00:00:00 Completed [facility] Hep B, Adol or Pedi Dosage 2000-03-05 00:00:00 Completed [facility] Polio (IPV/OPV) 2000-03-05 00:00:00 Completed [facility] DTAP 2000-03-05 00:00:00 Completed [facility] HIB 3 Dose Schedule 2000-03-05 00:00:00 Completed [facility] Hep B, Adol or Pedi Dosage 2000-03-05 00:00:00 Completed [facility] Polio (IPV/OPV) 2000-03-05 00:00:00 Completed [facility] DTAP 2000-03-05 00:00:00 Completed [facility] HIB 3 Dose Schedule 2000-03-05 00:00:00 Completed [facility] Hep B, Adol or Pedi Dosage 2000-03-05 00:00:00 Completed [facility] Polio (IPV/OPV) 2000-03-05 00:00:00 Completed [facility] DTAP 2000-03-05 00:00:00 Completed [facility] HIB 3 Dose Schedule 2000-03-05 00:00:00 Completed [facility] Hep B, Adol or Pedi Dosage 2000-03-05 00:00:00 Completed [facility] Polio (IPV/OPV) 2000-03-05 00:00:00 Completed [facility] DTAP 2000-03-05 00:00:00 Completed [facility] HIB 3 Dose Schedule 2000-03-05 00:00:00 Completed [facility] Hep B, Adol or Pedi Dosage 2000-03-05 00:00:00 Completed [facility] Polio (IPV/OPV) 2000-03-05 00:00:00 Completed [facility] DTAP 2000-03-05 00:00:00 Completed [facility] HIB 3 Dose Schedule 2000-03-05 00:00:00 Completed [facility] Hep B, Adol or Pedi Dosage 2000-03-05 00:00:00 Completed [facility] Polio (IPV/OPV) 2000-03-05 00:00:00 Completed [facility] DTAP 2000-03-05 00:00:00 Completed [facility] HIB 3 Dose Schedule 2000-03-05 00:00:00 Completed [facility] Hep B, Adol or Pedi Dosage 2000-03-05 00:00:00 Completed [facility] Polio (IPV/OPV) 2000-03-05 00:00:00 Completed [facility] DTAP 2000-03-05 00:00:00 Completed [facility] HIB 3 Dose Schedule 2000-03-05 00:00:00 Completed [facility] Hep B, Adol or Pedi Dosage 2000-03-05 00:00:00 Completed [facility] Polio (IPV/OPV) 2000-03-05 00:00:00 Completed [facility] DTAP 2000-03-05 00:00:00 Completed [facility] HIB 3 Dose Schedule 2000-03-05 00:00:00 Completed [facility] DTAP 1999 00:00:00 Completed [facility] HIB 3 Dose Schedule 1999 00:00:00 Completed [facility] Hep B, Adol or Pedi Dosage 1999 00:00:00 Completed [facility] Polio (IPV/OPV) 1999 00:00:00 Completed [facility] DTAP 1999 00:00:00 Completed [facility] HIB 3 Dose Schedule 1999 00:00:00 Completed [facility] Hep B, Adol or Pedi Dosage 1999 00:00:00 Completed [facility] Polio (IPV/OPV) 1999 00:00:00 Completed [facility] DTAP 1999 00:00:00 Completed [facility] HIB 3 Dose Schedule 1999 00:00:00 Completed [facility] Hep B, Adol or Pedi Dosage 1999 00:00:00 Completed [facility] Polio (IPV/OPV) 1999 00:00:00 Completed [facility] DTAP 1999 00:00:00 Completed [facility] HIB 3 Dose Schedule 1999 00:00:00 Completed [facility] Hep B, Adol or Pedi Dosage 1999 00:00:00 Completed [facility] Polio (IPV/OPV) 1999 00:00:00 Completed [facility] DTAP 1999 00:00:00 Completed [facility] HIB 3 Dose Schedule 1999 00:00:00 Completed [facility] Hep B, Adol or Pedi Dosage 1999 00:00:00 Completed [facility] Polio (IPV/OPV) 1999 00:00:00 Completed [facility] DTAP 1999 00:00:00 Completed [facility] HIB 3 Dose Schedule 1999 00:00:00 Completed [facility] Hep B, Adol or Pedi Dosage 1999 00:00:00 Completed [facility] Polio (IPV/OPV) 1999 00:00:00 Completed [facility] DTAP 1999 00:00:00 Completed [facility] HIB 3 Dose Schedule 1999 00:00:00 Completed [facility] Hep B, Adol or Pedi Dosage 1999 00:00:00 Completed [facility] Polio (IPV/OPV) 1999 00:00:00 Completed [facility] DTAP 1999 00:00:00 Completed [facility] HIB 3 Dose Schedule 1999 00:00:00 Completed [facility] Hep B, Adol or Pedi Dosage 1999 00:00:00 Completed [facility] Polio (IPV/OPV) 1999 00:00:00 Completed [facility] DTAP 1999 00:00:00 Completed [facility] HIB 3 Dose Schedule 1999 00:00:00 Completed [facility] Hep B, Adol or Pedi Dosage 1999 00:00:00 Completed [facility] Polio (IPV/OPV) 1999 00:00:00 Completed [facility] DTAP 1999 00:00:00 Completed [facility] HIB 3 Dose Schedule 1999 00:00:00 Completed [facility] Hep B, Adol or Pedi Dosage 1999 00:00:00 Completed [facility] Polio (IPV/OPV) 1999 00:00:00 Completed [facility] DTAP 1999 00:00:00 Completed [facility] HIB 3 Dose Schedule 1999 00:00:00 Completed [facility] Hep B, Adol or Pedi Dosage 1999 00:00:00 Completed [facility] Polio (IPV/OPV) 1999 00:00:00 Completed [facility] DTAP 1999 00:00:00 Completed [facility] HIB 3 Dose Schedule 1999 00:00:00 Completed [facility] Hep B, Adol or Pedi Dosage 1999 00:00:00 Completed [facility] Polio (IPV/OPV) 1999 00:00:00 Completed [facility] DTAP 1999 00:00:00 Completed [facility] HIB 3 Dose Schedule 1999 00:00:00 Completed [facility] Hep B, Adol or Pedi Dosage 1999 00:00:00 Completed [facility] Polio (IPV/OPV) 1999 00:00:00 Completed [facility] DTAP 1999 00:00:00 Completed [facility] HIB 3 Dose Schedule 1999 00:00:00 Completed [facility] Hep B, Adol or Pedi Dosage 1999 00:00:00 Completed [facility] Polio (IPV/OPV) 1999 00:00:00 Completed [facility] DTAP 1999 00:00:00 Completed [facility] HIB 3 Dose Schedule 1999 00:00:00 Completed [facility] Hep B, Adol or Pedi Dosage 1999 00:00:00 Completed [facility] Polio (IPV/OPV) 1999 00:00:00 Completed [facility] DTAP 1999 00:00:00 Completed [facility] HIB 3 Dose Schedule 1999 00:00:00 Completed [facility] Hep B, Adol or Pedi Dosage 1999 00:00:00 Completed [facility] Polio (IPV/OPV) 1999 00:00:00 Completed [facility] DTAP 1999 00:00:00 Completed [facility] HIB 3 Dose Schedule 1999 00:00:00 Completed [facility] Hep B, Adol or Pedi Dosage 1999 00:00:00 Completed [facility] Polio (IPV/OPV) 1999 00:00:00 Completed [facility] DTAP 1999 00:00:00 Completed [facility] HIB 3 Dose Schedule 1999 00:00:00 Completed [facility] Hep B, Adol or Pedi Dosage 1999 00:00:00 Completed [facility] Polio (IPV/OPV) 1999 00:00:00 Completed [facility] DTAP 1999 00:00:00 Completed [facility] HIB 3 Dose Schedule 1999 00:00:00 Completed [facility] Hep B, Adol or Pedi Dosage 1999 00:00:00 Completed [facility] Polio (IPV/OPV) 1999 00:00:00 Completed [facility] DTAP 1999 00:00:00 Completed [facility] HIB 3 Dose Schedule 1999 00:00:00 Completed [facility] Hep B, Adol or Pedi Dosage 1999 00:00:00 Completed [facility] Polio (IPV/OPV) 1999 00:00:00 Completed [facility] DTAP 1999 00:00:00 Completed [facility] HIB 3 Dose Schedule 1999 00:00:00 Completed [facility] Hep B, Adol or Pedi Dosage 1999 00:00:00 Completed [facility] Polio (IPV/OPV) 1999 00:00:00 Completed [facility] DTAP 1999 00:00:00 Completed [facility] HIB 3 Dose Schedule 1999 00:00:00 Completed [facility] Hep B, Adol or Pedi Dosage 1999 00:00:00 Completed [facility] Polio (IPV/OPV) 1999 00:00:00 Completed [facility] DTAP 1999 00:00:00 Completed [facility] HIB 3 Dose Schedule 1999 00:00:00 Completed [facility] Hep B, Adol or Pedi Dosage 1999 00:00:00 Completed [facility] Polio (IPV/OPV) 1999 00:00:00 Completed [facility] DTAP 1999 00:00:00 Completed [facility] HIB 3 Dose Schedule 1999 00:00:00 Completed [facility] Hep B, Adol or Pedi Dosage 1999 00:00:00 Completed [facility] Polio (IPV/OPV) 1999 00:00:00 Completed [facility] DTAP 1999 00:00:00 Completed [facility] HIB 3 Dose Schedule 1999 00:00:00 Completed [facility] Hep B, Adol or Pedi Dosage 1999 00:00:00 Completed [facility] Polio (IPV/OPV) 1999 00:00:00 Completed [facility] DTAP 1999 00:00:00 Completed [facility] HIB 3 Dose Schedule 1999 00:00:00 Completed [facility] Hep B, Adol or Pedi Dosage 1999 00:00:00 Completed [facility] Polio (IPV/OPV) 1999 00:00:00 Completed [facility] DTAP 1999 00:00:00 Completed [facility] HIB 3 Dose Schedule 1999 00:00:00 Completed [facility] Hep B, Adol or Pedi Dosage 1999 00:00:00 Completed [facility] Polio (IPV/OPV) 1999 00:00:00 Completed [facility] HPV9 Unknown Completed [facility] HPV Unknown Completed [facility] DTAP Unknown Completed [facility] DTAP Unknown Completed [facility] DTAP Unknown Completed [facility] DTAP Unknown Completed [facility] HIB 3 Dose Schedule Unknown Completed [facility] HIB 3 Dose Schedule Unknown Completed [facility] HIB 3 Dose Schedule Unknown Completed [facility] HEPATITIS A Unknown Completed [facility] Hep B, Adol or Pedi Dosage Unknown Completed [facility] Hep B, Adol or Pedi Dosage Unknown Completed [facility] Hep B, Adol or Pedi Dosage Unknown Completed [facility] Meningococcal Vaccine Unknown Completed [facility] Meningococcal Vaccine Unknown Completed [facility] MMR Unknown Completed [facility] MMR Unknown Completed [facility] Pneumococcal 13 Conjugate, PCV13 (Prevnar 13) Unknown Completed [facility] Polio (IPV/OPV) Unknown [facility] [facility] Polio (IPV/OPV) Unknown Completed [facility] Polio (IPV/OPV) Unknown Completed [facility] Polio (IPV/OPV) Unknown Completed [facility] TDAP Unknown Completed [facility] Varicella (varivax)(chicken pox) Unknown Completed [facility] Varicella (varivax)(chicken pox) Unknown Completed [facility] HPV9 Unknown Completed [facility] HPV Unknown Completed [facility] DTAP Unknown Completed [facility] DTAP Unknown Completed [facility] DTAP Unknown Completed [facility] DTAP Unknown Completed [facility] HIB 3 Dose Schedule Unknown Completed [facility] HIB 3 Dose Schedule Unknown Completed [facility] HIB 3 Dose Schedule Unknown Completed [facility] HEPATITIS A Unknown [facility] Hep B, Adol or Pedi Dosage Unknown Completed [facility] Hep B, Adol or Pedi Dosage Unknown Completed [facility] Hep B, Adol or Pedi Dosage Unknown Completed [facility] Meningococcal Vaccine Unknown Completed [facility] Meningococcal Vaccine Unknown Completed [facility] MMR Unknown Completed [facility] MMR Unknown Completed [facility] Pneumococcal 13 Conjugate, PCV13 (Prevnar 13) Unknown Completed [facility] Polio (IPV/OPV) Unknown Completed [facility] Polio (IPV/OPV) Unknown Completed [facility] Polio (IPV/OPV) Unknown Completed [facility] Polio (IPV/OPV) Unknown Completed [facility] TDAP Unknown Completed [facility] Varicella (varivax)(chicken pox) Unknown Completed [facility] Varicella (varivax)(chicken pox) Unknown Completed [facility] HPV9 Unknown Completed [facility] HPV Unknown Completed [facility] DTAP Unknown Completed [facility] DTAP Unknown Completed [facility] DTAP Unknown Completed [facility] DTAP Unknown Completed [facility] HIB 3 Dose Schedule Unknown Completed [facility] HIB 3 Dose Schedule Unknown Completed [facility] HIB 3 Dose Schedule Unknown Completed [facility] HEPATITIS A Unknown Completed [facility] Hep B, Adol or Pedi Dosage Unknown Completed [facility] Hep B, Adol or Pedi Dosage Unknown Completed [facility] Hep B, Adol or Pedi Dosage Unknown Completed [facility] Meningococcal Vaccine Unknown Completed [facility] Meningococcal Vaccine Unknown Completed [facility] MMR Unknown Completed [facility] MMR Unknown Completed [facility] Pneumococcal 13 Conjugate, PCV13 (Prevnar 13) Unknown Completed [facility] Polio (IPV/OPV) Unknown Completed [facility] Polio (IPV/OPV) Unknown Completed [facility] Polio (IPV/OPV) Unknown Completed [facility] Polio (IPV/OPV) Unknown Completed [facility] TDAP Unknown Completed [facility] Varicella (varivax)(chicken pox) Unknown Completed [facility] Varicella (varivax)(chicken pox) Unknown Completed [facility] HPV9 Unknown Completed [facility] HPV Unknown Completed [facility] DTAP Unknown Completed [facility] DTAP Unknown Completed [facility] DTAP Unknown Completed [facility] DTAP Unknown Completed [facility] HIB 3 Dose Schedule Unknown Completed [facility] HIB 3 Dose Schedule Unknown Completed [facility] HIB 3 Dose Schedule Unknown Completed [facility] HEPATITIS A Unknown Completed [facility] Hep B, Adol or Pedi Dosage Unknown Completed [facility] Hep B, Adol or Pedi Dosage Unknown Completed [facility] Hep B, Adol or Pedi Dosage Unknown Completed [facility] Meningococcal Vaccine Unknown Completed [facility] Meningococcal Vaccine Unknown Completed [facility] MMR Unknown Completed [facility] MMR Unknown Completed [facility] Pneumococcal 13 Conjugate, PCV13 (Prevnar 13) Unknown Completed [facility] Polio (IPV/OPV) Unknown Completed [facility] Polio (IPV/OPV) Unknown Completed [facility] Polio (IPV/OPV) Unknown Completed [facility] Polio (IPV/OPV) Unknown Completed [facility] TDAP Unknown Completed [facility] Varicella (varivax)(chicken pox) Unknown Completed [facility] Varicella (varivax)(chicken pox) Unknown Completed [facility] HPV9 Unknown Completed [facility] HPV Unknown Completed [facility] DTAP Unknown Completed [facility] DTAP Unknown Completed [facility] DTAP Unknown Completed [facility] DTAP Unknown Completed [facility] HIB 3 Dose Schedule Unknown Completed [facility] HIB 3 Dose Schedule Unknown Completed [facility] HIB 3 Dose Schedule Unknown Completed [facility] HEPATITIS A Unknown Completed [facility] Hep B, Adol or Pedi Dosage Unknown Completed [facility] Hep B, Adol or Pedi Dosage Unknown Completed [facility] Hep B, Adol or Pedi Dosage Unknown Completed [facility] Meningococcal Vaccine Unknown Completed [facility] Meningococcal Vaccine Unknown Completed [facility] MMR Unknown Completed [facility] MMR Unknown Completed [facility] Pneumococcal 13 Conjugate, PCV13 (Prevnar 13) Unknown Completed [facility] Polio (IPV/OPV) Unknown Completed [facility] Polio (IPV/OPV) Unknown Completed [facility] Polio (IPV/OPV) Unknown Completed [facility] Polio (IPV/OPV) Unknown Completed [facility] TDAP Unknown Completed [facility] Varicella (varivax)(chicken pox) Unknown Completed [facility] Varicella (varivax)(chicken pox) Unknown Completed [facility] Vital Signs Vital Name Observation Time Observation Value Comments S ource Systolic blood pressure 2023-01-21 04:29:00 144 mm[Hg] [facility] Diastolic blood pressure 2023-01-21 04:29:00 98 mm[Hg] [facility] Heart rate 2023-01-21 04:29:00 90 /min [facility] Body temperature 2023-01-21 04:29:00 37 Radha [facility] Respiratory rate 2023-01-21 04:29:00 18 /min [facility] Body height 2023-01-21 04:29:00 162.6 cm [facility] Body weight 2023-01-21 04:29:00 96.026 kg [facility] BMI 2023-01-21 04:29:00 36.34 kg/m2 [facility] Oxygen saturation in Arterial blood by Pulse oximetry 2023-01-21 04:29:00 100 /min [facility] Oxygen saturation in Arterial blood by Pulse oximetry 2022-11-27 03:20:00 100 /min [facility] Systolic blood pressure 2022-11-27 03:20:00 139 mm[Hg] [facility] Diastolic blood pressure 2022-11-27 03:20:00 92 mm[Hg] [facility] Heart rate 2022-11-27 03:20:00 80 /min [facility] Body temperature 2022-11-27 03:20:00 36.28 Radha [facility] Respiratory rate 2022-11-27 03:20:00 15 /min [facility] Body height 2022-11-27 03:20:[address] weight 2022-11-27 03:20:00 96.163 kg [facility] BMI 2022-11-27 03:20:00 36.39 kg/m2 [facility] Heart rate 2022-07-02 16:04:00 87 /min [facility] Body temperature 2022-07-02 16:04:00 36.89 Radha [facility] Respiratory rate 2022-07-02 16:04:00 22 /min [facility] Body height 2022-07-02 16:04:00 165.1 cm [facility] Body weight 2022-07-02 16:04:00 101.833 kg [facility] BMI 2022-07-02 16:04:00 37.36 kg/m2 [facility] Oxygen saturation in Arterial blood by Pulse oximetry 2022-07-02 16:04:00 99 /min [facility] Systolic blood pressure 2021-09-13 07:00:00 121 mm[Hg] [facility] Diastolic blood pressure 2021-09-13 07:00:00 84 mm[Hg] [facility] Heart rate 2021-09-13 07:00:00 98 /min [facility] Respiratory rate 2021-09-13 07:00:00 20 /min [facility] Oxygen saturation in Arterial blood by Pulse oximetry 2021-09-13 07:00:00 98 /min [facility] Body temperature 2021-09-13 05:34:00 37.61 Radha [facility] Body height 2021-09-13 05:34:00 162.6 cm [facility] Body weight 2021-09-13 05:34:00 111.131 kg [facility] BMI 2021-09-13 05:34:00 42.05 kg/m2 [facility] Systolic blood pressure 2020-12-31 20:48:00 127 mm[Hg] [facility] Diastolic blood pressure 2020-12-31 20:48:00 96 mm[Hg] [facility] Heart rate 2020-12-31 20:48:00 83 /min [facility] Body temperature 2020-12-31 20:48:00 36.83 Radha [facility] Respiratory rate 2020-12-31 20:48:00 18 /min [facility] Body weight 2020-12-31 20:48:00 110.678 kg [facility] BMI 2020-12-31 20:48:00 41.88 kg/m2 [facility] Oxygen saturation in Arterial blood by Pulse oximetry 2020-12-31 20:48:00 100 /min [facility] Systolic blood pressure 2020-11-07 14:46:00 126 mm[Hg] [facility] Diastolic blood pressure 2020-11-07 14:46:00 76 mm[Hg] [facility] Heart rate 2020-11-07 14:46:00 92 /min [facility] Body temperature 2020-11-07 14:46:00 37 Radha [facility] Respiratory rate 2020-11-07 14:46:00 24 /min [facility] Body height 2020-11-07 14:46:00 162.6 cm [facility] Body weight 2020-11-07 14:46:00 113.581 kg [facility] BMI 2020-11-07 14:46:00 42.98 kg/m2 [facility] Systolic blood pressure 2020-10-17 18:10:00 119 mm[Hg] [facility] Diastolic blood pressure 2020-10-17 18:10:00 72 mm[Hg] [facility] Heart rate 2020-10-17 18:10:00 99 /min [facility] Body temperature 2020-10-17 18:10:00 36.89 Radha [facility] Respiratory rate 2020-10-17 18:10:00 16 /min [facility] Body height 2020-10-17 18:10:00 162.6 cm [facility] Body weight 2020-10-17 18:10:00 117.113 kg [facility] BMI 2020-10-17 18:10:00 44.32 kg/m2 [facility] Systolic blood pressure 2020-08-09 06:00:00 136 mm[Hg] [facility] Diastolic blood pressure 2020-08-09 06:00:00 75 mm[Hg] [facility] Heart rate 2020-08-09 06:00:00 93 /min [facility] Respiratory rate 2020-08-09 06:00:00 18 /min [facility] Oxygen saturation in Arterial blood by Pulse oximetry 2020-08-09 06:00:00 92 /min [facility] Body temperature 2020-08-09 05:00:00 37.44 Radha [facility] Body height 2020-08-09 05:00:00 162.6 cm [facility] Body weight 2020-08-09 05:00:00 114.306 kg [facility] BMI 2020-08-09 05:00:00 43.26 kg/m2 [facility] Systolic blood pressure 2020-01-08 07:00:00 137 mm[Hg] [facility] Diastolic blood pressure 2020-01-08 07:00:00 82 mm[Hg] [facility] Heart rate 2020-01-08 07:00:00 80 /min [facility] Body temperature 2020-01-08 07:00:00 36.89 Radha [facility] Respiratory rate 2020-01-08 07:00:00 11 /min [facility] Oxygen saturation in Arterial blood by Pulse oximetry 2020-01-08 07:00:00 95 /min [facility] Body weight 2020-01-08 05:39:00 108.863 kg [facility] Systolic blood pressure 2020-01-08 07:00:00 137 mm[Hg] [place] [facility] Diastolic blood pressure 2020-01-08 07:00:00 82 mm[Hg] [facility] Heart rate 2020-01-08 07:00:00 80 /min [facility] Body temperature 2020-01-08 07:00:00 36.89 Radha [facility] Respiratory rate 2020-01-08 07:00:00 11 /min [facility] Oxygen saturation in Arterial blood by Pulse oximetry 2020-01-08 07:00:00 95 /min [facility] Body weight 2020-01-08 05:39:00 108.863 kg [facility] Procedures Procedure Date / Time Performed Performing Clinicia n Source URINALYSIS 2023-01-21 06:04:[address] [facility] POCT TEST 2023-01-21 06:04:00 Corey Ledezma [facility] CONSENT/REFUSAL FOR DIAGNOSIS AND TREATMENT 2023-01-21 04:16:58 Doctor Unassigned, [place] [facility] POCT TEST 2022-11-27 05:32:00 Bret Herndon [facility] URINALYSIS 2022-11-27 05:31:00 [facility] LACTIC ACID WHOLE BLOOD 2022-11-27 05:17:00 Alvaro Herndon [facility] LIPASE 2022-11-27 05:16:00 Alvaro Herndon [facility] TEST, SERUM 2022-11-27 05:16:00 Travis Herndon [facility] COMP. METABOLIC PANEL (64191) 2022-11-27 05:16:00 Alvaro Herndon [facility] CBC WITH DIFF 2022-11-27 05:16:00 Alvaro Herndon [facility] ASSIGNMENT OF BENEFITS 2022-11-27 04:54:06 Docto r Unassigned, [place] [facility] CONSENT/REFUSAL FOR DIAGNOSIS AND TREATMENT 2022-11-27 03:16:23 Doctor Unassigned, [place] [facility] XR SPINE THORACIC 2 VW 2022-07-02 18:53:16 Demi Allan [facility] XR ELBOW >3 VW LEFT 2022-07-02 18:53:16 Prakash Allan [facility] CONSENT/REFUSAL FOR DIAGNOSIS AND TREATMENT 2022-07-02 15:56:23 Doctor Unassigned, [place] [facility] CONSENT/REFUSAL FOR DIAGNOSIS AND TREATMENT 2021-09-13 05:29:08 Doctor Unassigned, [place] [facility] NOTICE OF PRIVACY PRACTICES 2021-09-13 05:28:35 Doctor Unassigned, [place] [facility] POCT TEST 2020-12-31 21:04:00 Bret Herndon [facility] URINALYSIS 2020-12-31 20:58:[address] [facility] CONSENT/REFUSAL FOR DIAGNOSIS AND TREATMENT 2020-12-31 20:17:00 Doctor Unassigned, [place] [facility] POCT TEST 2020-10-17 19:59:00 Sea Briseno [facility] GARDASIL 9 (HPV 9V) VACCINE 2020-10-17 19:16:48 Felipa Briseno [facility] CONSENT/REFUSAL FOR DIAGNOSIS AND TREATMENT 2020-10-17 17:25:15 Doctor Unassigned, [place] [facility] ASSIGNMENT OF BENEFITS 2020-10-17 17:24:54 Docto r Unassigned, [place] [facility] BASIC METABOLIC PANEL (NA, K, CL, CO2, GLUCOSE, BUN, CREATININE, CA) 2020-08-09 05:20:00 Morena Benton [facility] CBC WITH DIFF 2020-08-09 05:20:00 [facility] 2020-08-09 05:05:00 Janet Benton ra [facility] URINALYSIS 2020-08-09 05:03:00 [facility] NOTICE OF PRIVACY PRACTICES 2020-08-09 04:47:00 Doctor Unassigned, [place] [facility] CONSENT/REFUSAL FOR DIAGNOSIS AND TREATMENT 2020-08-09 04:46:34 Doctor Unassigned, [place] [facility] XR CHEST 1 VW 2020-01-08 06:19:33 [facility] LIPASE 2020-01-08 06:14:00 [facility] TROPONIN I 2020-01-08 06:14:00 El Hussein [facility] HEPATIC FUNCTION PANEL ([id number]) (ALB,T.PRO,BILI T,BU/BC,ALT,AST,ALK PHOS) 2020-01-08 06:14:00 El Hussein [facility] BASIC METABOLIC PANEL (NA, K, CL, CO2, GLUCOSE, BUN, CREATININE, CA) 2020-01-08 06:14:00 [facility] Hussein [facility] CBC WITH DIFF 2020-01-08 06:14:00 [facility] URINALYSIS 2020-01-08 06:14:00 [place] [facility] POCT TEST 2020-01-08 06:13:00 El Hussein [facility] EKG-12 LEAD 2020-01-08 05:54:25 [place] [facility] Encounters Start Date/Time End Date/Time Encounter Type Admission Type Attending [facility] Care Facility Care Department Encounter ID Source 2021-04-02 12:16:56 Emergency [facility] [id number] [facility] 2023-01-20 23:32:00 2023-01-21 02:45:00 Emergency X Corey LEDEZMA [facility] ERT [id number] [facility] 2023-01-20 23:32:00 2023-01-21 02:45:00 Emergency Corey Ledezma [facility] ..840.114 350.1.13.10 4.2.7.2.686 [id number] [facility] 2023-01-21 00:00:00 2023-01-21 00:00:00 Patient Secure Msg Doctor Unassigned, [place] [facility] [id number] 350.1.13.10 4.2.7.2.686 [id number] [facility] 2023-01-01 00:00:00 2023-01-01 00:00:00 Letter (Out) Clinic, [facility] Gastroenter oly [facility] 1.2.840.114 350.1.13.10 4.2.7.2.686 [id number] [facility] 2022-12-30 00:00:00 2022-12-30 00:00:00 Patient Secure Msg Doctor Unassigned, [place] [facility] [id number] 350.1.13.10 4.2.7.2.686 [id number] [facility] 2022-11-26 22:37:00 2022-11-27 02:15:00 Emergency X ALVARO HERNDON [facility] ERT [id number] [facility] 2022-11-26 22:37:00 2022-11-27 02:15:00 Emergency Alvaro Herndon [facility] [id number] 350.1.13.10 4.2.7.2.686 [id number] [facility] 2022-11-26 00:00:00 2022-11-26 00:00:00 Orders Only Doctor Unassigned, [place] [facility] 1.2.840.114 350.1.13.10 4.2.7.2.686 [id number] [facility] 2022-10-16 14:28:32 2022-10-16 14:28:32 Outpatient [facility] [id number] Eulogio Alcantar 2022-07-02 10:07:00 2022-07-02 14:07:00 Emergency X PRAKASH ALLAN [facility] ERT [id number] [facility] 2022-07-02 10:07:00 2022-07-02 14:07:00 Emergency Allan, Prakash S [facility] [id number] 350.1.13.10 4.2.7.2.686 [id number] [facility] 2022-07-02 00:00:00 2022-07-02 00:00:00 Orders Only Doctor Unassigned, [place] [facility] 1.2.840.114 350.1.13.10 4.2.7.2.686 [id number] [facility] 2021-09-13 00:42:00 2021-09-13 02:04:00 Emergency X JERRELL PRAKASH [facility] ERT [id number] [facility] 2021-09-13 00:42:00 2021-09-13 02:04:00 Emergency Prakash Allan [facility] 1.2.840.114 350.1.13.10 4.2.7.2.686 [id number] [facility] 2021-03-02 00:00:00 2021-03-02 00:00:00 Telephone [address] Briseno [facility] PROGRAM MANAGEMENT INTERN [facility] [id number] 350.1.13.10 4.2.7.2.686 [id number] [facility] 2021-02-19 08:15:00 2021-02-19 08:15:00 Outpatient FELIPA TOM [facility] [id number] [facility] 2021-02-06 10:30:00 2021-02-06 10:30:00 Outpatient FELIPA TOM [facility] [id number] [facility] 2020-12-31 16:05:00 2020-12-31 18:56:00 Emergency Annabella Samayoa [facility] 1.2.840.114 350.1.13.10 4.2.7.2.686 [id number] [facility] 2020-12-25 00:00:00 2020-12-25 00:00:00 Telephone [address] Briseno [facility] PROGRAM MANAGEMENT INTERN [facility]ILD [facility] 1.2.840.114 350.1.13.10 4.2.7.2.686 [id number] [facility] 2020-12-24 00:00:00 2020-12-24 00:00:00 Nurse Triage [facility] [id number] 350.1.13.10 4.2.7.2.686 [id number] [facility] 2020-11-13 00:00:00 2020-11-13 00:00:00 Patient Secure Msg Felipa Briseno [facility] PROGRAM MANAGEMENT INTERN [facility]ILD [facility] 1.2840.114 350.1.13.10 4.2.7.2.686 [id number] [facility] 2020-11-07 09:33:35 2020-11-07 11:41:19 Office Visit Felipa Briseno NDRENÉ PROGRAM MANAGEMENT INTERN [facility] 1.2.840.114 350.1.13.10 4.2.7.2.686 [id number] [facility] 2020-11-07 09:30:00 2020-11-07 09:30:00 Outpatient R FELIPA BRISENO [facility] [id number] [facility] 2020-11-03 00:00:00 2020-11-03 00:00:00 Telephone Felipa Briseno [facility] PROGRAM MANAGEMENT INTERN [facility] [id number] 350.1.13.10 4.2.7.2.686 [id number] [facility] 2020-11-02 00:00:2020-11-02 00:00:00 Telephone Felipa Briseno [facility] PROGRAM MANAGEMENT INTERN [facility]ILD [facility] [id number] 350.1.13.10 4.2.7.2.686 [id number] [facility] 2020-11-01 00:00:00 2020-11-01 00:00:00 Patient Secure Msg AbrahamFelipa friedman [facility] PROGRAM MANAGEMENT INTERN [facility]ILD [facility] [id number] 350.1.13.10 4.2.7.2.686 [id number] [facility] 2020-11-01 00:00:00 2020-11-01 00:00:00 Refill Felipa Briseno [facility] PROGRAM MANAGEMENT INTERN [facility] CHILD [facility] 1.840.114 350.1.13.10 4.2.7.2.686 [id number] [facility] 2020-11-01 00:00:00 2020-11-01 00:00:00 Letter (Out) Jake Jonas [facility] .840.114 350.1.13.10 4.2.7.2.686 [id number] [facility] 2020-10-27 15:30:00 2020-10-27 15:30:00 Outpatient R [facility] [id number] [facility] 2020-10-23 00:00:00 2020-10-23 00:00:00 Patient Secure Msg SukhFelipa rosado [facility] PROGRAM MANAGEMENT INTERN [facility]ILD [facility] 1.840.114 350.1.13.10 4.2.7.2.686 [id number] [facility] 2020-10-19 00:00:00 2020-10-19 00:00:00 Telephone Felipa Briseno [facility] PROGRAM MANAGEMENT INTERN [facility]ILD [facility] 1.2.840.114 350.1.13.10 4.2.7.2.686 [id number] [facility] 2020-10-17 12:46:36 2020-10-17 14:56:59 Office Visit Felipa Briseno [facility] PROGRAM MANAGEMENT INTERN [facility] MATERNAL & CHILD [facility]ALTH [facility] 1.2.840.114 350.1.13.10 4.2.7.2.686 [id number] [facility] 2020-10-17 13:00:00 2020-10-17 13:00:00 Outpatient R FELIPA BRISENO [facility] [id number] [facility] 2020-10-17 00:00:00 2020-10-17 00:00:00 Orders Only Doctor Unassigned, [place] [facility] 1.2840.114 350.1.13.10 4.2.7.2.686 [id number] [facility] 2020-08-08 22:53:00 2020-08-09 01:02:00 Emergency Morena Benton [facility] 1.2840.114 350.1.13.10 4.2.7.2.686 [id number] [facility] 2020-08-08 22:53:00 2020-08-08 22:53:00 Emergency X MORENA BENTON [facility] ERT [id number] [facility] 2020-08-08 00:00:00 2020-08-08 00:00:00 Orders Only Doctor Unassigned, [place] [facility] 1.2840.114 350.1.13.10 4.2.7.2.686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
[2023-08-12 14:45] LABS: Specific Gravity 1.019 (1.005-1.030); Urine Bacteria <20 /HPF (<20); Urine Bilirubin NEGATIVE (Negative); Urine Blood Trace (Negative); Urine Clarity Extremely Turbid (Clear); Urine Color Light-Yellow (Yellow); Urine Glucose NEGATIVE (Negative); Urine Mucus Slight /HPF (None Seen); Urine Protein NEGATIVE (Negative); Urine Urobilinogen Normal (Normal); Urine Yeast (Budding) Trace /HPF (None Seen); Urine pH 6.5 (5.0-7.0)
[2023-08-12 15:25] LABS: Absolute Eosinophils 0.1 K/uL (0-0.5); Absolute Lymphocytes (CBC) 2.3 K/uL (0.7-4.9); Basophils % 0.5 % (0-1.3); Eosinophils % 0.9 % (0-4.4); Hematocrit 38.6 % (36.0-45.0); Hemoglobin 13.1 g/dL (12.0-15.0); Lymphocytes % 30.1 % (15.3-44.8); MCV 83.3 fL (80-100); MPV 7.2 fL (7.6-11.3); Platelets 351 thou/uL (152-406); RBC Red Blood Cell Count 4.63 M/uL (3.86-4.86)
[2023-08-12 15:45] LABS: Anion Gap 6.2 mEq/L (5.0-15.0); BUN Blood Urea Nitrogen 11 mg/dL (7-18); Bicarbonate 27 mEq/L (21-32); Glomerular Filtration Rate 112 ml/min (=/>90); Glucose Level 68 mg/dL (74-106); Potassium 4.2 mEq/L (3.5-5.1); Sodium Level 140 mEq/L (136-145)
[2023-08-12 15:46] LABS: HCG, Quantitative < 1 mIU/mL (1-3)
--- NOTE | 2023-08-12 17:02 | RAD REPORT ---
EXAM DESCRIPTION: US - Transvaginal Study Probe - 08/12/2023 4:52 pm CLINICAL HISTORY: pain Pelvic pain. COMPARISON: No comparisons FINDINGS: The uterus is normal in size, shape and echotexture. The uterus measures 5.5 x 4.4 x 2.9 c m. The endometrial stripe measures 9 mm, normal. Both ovaries are normal in size, shape and echotexture. The right ovary measures 2.7 x 2.7 x 2.1 cm. The left ovary measures 3.8 x 3.0 x 2.9 cm. No ovarian or parovarian lesions. No adnexal masses. Normal Doppler blood flow was demonstrated to both ovaries. No significant pelvic ascites. IMPRESSION: Unremarkable study.
--- NOTE | 2023-08-12 17:54 | EDPHYS ---
Physician Documentation [facility] Name: Gisele Tilley Age: 23 yrs Sex: Female : 2000 Arrival Date: 08/12/2023 Time: 13:59 Bed 12 Private MD: ED Physician Bossman Mckeon HPI: 08/11 15:00 This 23 yrs old Female presents to ER via Ambulatory with complaints of cp Vaginal Pain. 15:00 The patient presents with pelvic pain, that is located in/on the suprapubic area. cp Onset: The symptoms/episode began/occurred 2 day(s) ago. 15:00 Associated signs and symptoms: Pertinent positives: pain with intercourse, Pertinent cp negatives: diarrhea, dysuria, fever, vaginal bleeding, vaginal discharge, vomiting. 15:01 Patient expresses concern about getting in the future but admits that she is cp not actively trying to get at this time. SAP BPC ARCHITECT: 14:22 LMP 07/2023, unknown ld1 15:00 2, Full Term 0, 2, Living 0, unknown cp Historical: - Allergies: 14:16 PENICILLINS; ld1 - PMHx: 14:16 Depression; Diabetes - NIDDM; ibs; ld1 - PSHx: 14:16 None; ld1 - Immunization history:: Adult Immunizations up to date. - Social history:: Smoking status: Patient denies any tobacco usage or history of. Patient/guardian denies using alcohol. ROS: 15:05 : Positive for pelvic pain, Negative for urinary symptoms, vaginal bleeding, vaginal cp discharge, 15:05 Constitutional: Negative for body aches, chills, fever, poor PO intake, cp 15:05 Abdomen/GI: Negative for vomiting, diarrhea, constipation, 15:05 Eyes: Negative for injury, pain, redness, and discharge, cp 15:05 Cardiovascular: Negative for chest pain, edema, palpitations, 15:05 Respiratory: Negative for cough, shortness of breath, wheezing, 15:05 ENT: Negative for drainage from ear(s), ear pain, difficulty swallowing, difficulty cp handling secretions, 15:05 Neuro: Negative for altered mental status, dizziness, headache, syncope, 15:05 All other systems are negative, Exam: 15:10 Constitutional: The patient appears in no acute distress, alert, awake, non-toxic, well cp developed, well nourished, 15:10 Head/Face: Normocephalic, atraumatic. cp 15:10 Eyes: Periorbital structures: appear normal, Conjunctiva: normal, no exudate, no injection, Sclera: no appreciated abnormality, Lids and lashes: appear normal, bilaterally, 15:10 ENT: External ear(s): are unremarkable, Nose: is normal, Mouth: Lips: moist, Oral mucosa: pink and intact, moist, Posterior pharynx: Airway: no evidence of obstruction, patent, 15:10 Chest/axilla: Inspection: normal, 15:10 Cardiovascular: Rate: normal, Rhythm: regular, 15:10 Respiratory: the patient does not display signs of respiratory distress, Respirations: normal, no use of accessory muscles, no retractions, labored breathing, is not present, Breath sounds: are clear throughout, no decreased breath sounds, no stridor, no wheezing, 15:10 Abdomen/GI: Inspection: abdomen appears normal, Bowel sounds: active, all quadrants, Palpation: soft, in all quadrants, mild abdominal tenderness, in the suprapubic area, rebound tenderness, is not appreciated, involuntary guarding, is not appreciated, 15:10 Back: CVA tenderness, is absent, 17:00 : Pelvic Exam: External exam: is normal, Speculum exam: no bleeding is noted, no cp cervicitis, bimanual exam reveals no cervical motion tenderness, no adnexa tenderness or masses bilaterally, very mild uterine tenderness, Vital Signs: 14:17 BP 123 / 55; Pulse 89; Resp 18; Temp 97.6(O); Pulse Ox 97% on R/A; Weight 85.73 kg; ld1 Height 5 ft. 5 in. ; Pain 8/10; 17:01 BP 132 / 68; Pulse 76; Resp 18; Pulse Ox 100% on R/A; mb9 17:52 BP 128 / 74; Pulse 86; Resp 18; Pulse Ox 100% on R/A; mb9 14:17 Body Mass Index 31.45 (85.73 kg, 165.1 cm) ld1 14:17 Pain Scale: Adult ld1 MDM: 14:28 Patient medically screened. cp 17:53 Data reviewed: vital signs, nurses notes, lab test result(s), radiologic studies, cp ultrasound. 17:53 Differential diagnosis: ectopic , ovarian cyst, urinary tract infection, cp vaginosis. Counseling: I had a detailed discussion with the patient and/or guardian regarding the historical points, exam findings, and any diagnostic results supporting the discharge/admit diagnosis, lab results, radiology results, the need for outpatient follow up, an OB/Gyne specialist. 08/11 14:45 Order name: Test, Urine; Complete Time: 14:54 EDWY 08/11 14:45 Order name: Urinalysis w/ reflexes; Complete Time: 14:54 EDWY 08/11 17:48 Interpretation: Normal except: [facility] Extremely Turbid; UBLD Trace; URBC 5-10; BYST Trace. 08/11 15:46 Order name: CBC with Automated Diff; Complete Time: 17:26 EDWY 08/11 17:48 Interpretation: Normal except: MPV 7.2. 08/11 15:47 Order name: Basic Metabolic Panel; Complete Time: 17:26 EDWY 08/11 17:48 Interpretation: Normal except: CL 111; GLUC 68. 08/11 15:47 Order name: HCG, Quantitative; Complete Time: 17:26 EDWY 08/11 17:48 Interpretation: Reviewed. 08/11 17:08 Order name: Wet Prep; Complete Time: 17:26 EDWY 08/11 17:47 Order name: GC (Neo/Chl) Probe CX/URE EDWY 08/11 15:32 Order name: US Transvaginal Study (Probe) 08/11 17:02 Order name: US; Complete Time: 17:26 EDWY 08/11 14:56 Order name: IV Saline Lock; Complete Time: 15:19 08/11 14:56 Order name: Labs collected and sent; Complete Time: 15:19 cp 08/11 14:56 Order name: NPO; Complete Time: 15:07 cp 08/11 15:32 Order name: Pelvic Exam Setup; Complete Time: 15:35 cp Administered Medications: No medications were administered Disposition Summary: 08/12/23 17:54 Discharge Ordered Notes: Location: Home cp Problem: new cp Symptoms: have improved cp Condition: Stable cp Diagnosis - Lower abdominal pain, unspecified cp Followup: cp - With: Private Physician - When: 2 - 3 days - Reason: Recheck today's complaints Discharge Instructions: - Abdominal Pain, Adult cp - Discharge Summary Sheet mb9 Forms: - Medication Reconciliation Form cp - Thank You Letter cp - Antibiotic Education cp - Prescription Opioid Use cp - Patient Portal Instructions cp - Leadership Thank You Letter cp - Work release form mb9 Prescriptions: - Ibuprofen 800 mg Oral Tablet - take 1 tablet ORAL route every 8 hours As needed take with food; 30 tablet; cp Refills: 0, Product Selection Permitted Signatures: Dispatcher [employer] EDMS Casey Broussard PA PA cp Sims, Lauren RN RN ld1 Corrections: (The following items were deleted from the chart) 08/12 16:27 15:00 This 23 yrs old Female presents to ER via Ambulatory with complaints of cp Vaginal Pain. cp 16:27 15:00 The patient presents with pelvic pain, that is located in/on the suprapubic area, cp cp 16:27 15:00 Onset: The symptoms/episode began/occurred 2 day(s) ago, cp cp 16:27 15:00 Associated signs and symptoms: Pertinent positives: pain with intercourse, cp Pertinent negatives: diarrhea, dysuria, fever, vaginal bleeding, vaginal discharge, vomiting, cp 16: 15:00 2, Full Term 0, 2, Living 0, unknown cp cp 16:43 08/11 15:25 2, Full Term 0, 2, Living 0, unknown cp cp 08/12 16:43 08/11 15:25 Associated signs and symptoms: Pertinent positives: pain with intercourse, cp Pertinent negatives: diarrhea, dysuria, fever, vaginal bleeding, vaginal discharge, vomiting, cp
--- NOTE | 2023-08-12 17:54 | ER ---
Nurse's Notes [facility] Name: Gisele Tilley Age: 23 yrs Sex: Female : 2000 Arrival Date: 08/12/2023 Time: 13:59 Bed 12 Private MD: Diagnosis: Lower abdominal pain, unspecified Presentation: 08/11 14:17 Chief complaint: Patient states: C/O pain after sexual intercourse or using "Toys." Pt ld1 requesting to get checked to make sure nothing is wrong \\T\\ that "I am able to have children.". Coronavirus screen: At this time, the client does not indicate any symptoms associated with coronavirus-19. Ebola Screen: No symptoms or risks identified at this time. Initial Sepsis Screen: Does the patient meet any 2 criteria? No. Patient's initial sepsis screen is negative. Does the patient have a suspected source of infection? No. Patient's initial sepsis screen is negative. Risk Assessment: Do you want to hurt yourself or someone else? Patient reports no desire to harm self or others. Onset of symptoms was August 12, 2023 at 14:18. 14:17 Method Of Arrival: Ambulatory ld1 14:17 Acuity: IRIS 3 ld1 Triage Assessment: 14:17 General: Appears in no apparent distress. comfortable, Behavior is calm, cooperative, ld1 appropriate for age. Pain: Complains of pain in groin Pain does not radiate. Pain currently is 8 out of 10 on a pain scale. Quality of pain is described as throbbing, Pain began 1 day ago. Is continuous. EENT: No signs and/or symptoms were reported regarding the EENT system. Neuro: Level of Consciousness is awake, alert, obeys commands, Oriented to person, place, time, situation. Cardiovascular: Capillary refill < 3 seconds Patient's skin is warm and dry. Respiratory: Airway is patent Respiratory effort is even, unlabored. GI: Abdomen is round non-distended. : No signs and/or symptoms were reported regarding the genitourinary system. Derm:. Musculoskeletal: No signs and/or symptoms reported regarding the musculoskeletal system. STABLE CLEANER: 14:22 LMP 07/2023, unknown ld1 15:00 2, Full Term 0, 2, Living 0, unknown cp Historical: - Allergies: 14:16 PENICILLINS; ld1 - PMHx: 14:16 Depression; Diabetes - NIDDM; ibs; ld1 - PSHx: 14:16 None; ld1 - Immunization history:: Adult Immunizations up to date. - Social history:: Smoking status: Patient denies any tobacco usage or history of. Patient/guardian denies using alcohol. Screenin:09 [facility] ED Fall Risk Assessment (Adult) History of falling in the last 3 months, mb9 including since admission No falls in past 3 months (0 pts) Confusion or Disorientation No (0 pts) Intoxicated or Sedated No (0 pts) Impaired Gait No (0 pts) Mobility Assist Device Used No (0 pt) Altered Elimination No (0 pt) Score/Fall Risk Level 0 - 2 = Low Risk Oriented to surroundings, Maintained a safe environment, Educated pt \\T\\ family on fall prevention, incl call for assistance when getting out of bed. Abuse screen: Denies threats or abuse. Nutritional screening: No deficits noted. Tuberculosis screening: No symptoms or risk factors identified. Assessment: 15:19 General: Appears in no apparent distress. Behavior is calm, cooperative. Pain: mb9 Complains of pain in pelvis Pain does not radiate. Pain currently is 5 out of 10 on a pain scale. Quality of pain is described as throbbing, Pain began 2-3 days ago. Is intermittent. Neuro: Nieves Agitation-Sedation Scale (RASS): 0 - Alert and Calm Level of Consciousness is awake, alert, obeys commands, Oriented to person, place, time, situation, Appropriate for age. Cardiovascular: Patient's skin is warm and dry. Respiratory: Airway is patent Respiratory effort is even, unlabored, Respiratory pattern is regular, symmetrical, Breath sounds are clear bilaterally. GI: Abdomen is round non-distended, Bowel sounds present X 4 quads. Abd is soft Abdomen is tender to palpation in suprapubic area. : Reports pain vagina Denies vaginal bleeding. EENT: No signs and/or symptoms were reported regarding the EENT system. Derm: Skin is pink, warm \\T\\ dry. Musculoskeletal: Range of motion: intact in all extremities. 17:01 Reassessment: No changes from previously documented assessment. Patient and/or family mb9 updated on plan of care and expected duration. Pain level reassessed. Patient is alert, oriented x 3, equal unlabored respirations, skin warm/dry/pink. 17:52 Reassessment: No changes from previously documented assessment. Patient and/or family mb9 updated on plan of care and expected duration. Pain level reassessed. Patient is alert, oriented x 3, equal unlabored respirations, skin warm/dry/pink. Vital Signs: 14:17 BP 123 / 55; Pulse 89; Resp 18; Temp 97.6(O); Pulse Ox 97% on R/A; Weight 85.73 kg; ld1 Height 5 ft. 5 in. ; Pain 8/10; 17:01 BP 132 / 68; Pulse 76; Resp 18; Pulse Ox 100% on R/A; mb9 17:52 BP 128 / 74; Pulse 86; Resp 18; Pulse Ox 100% on R/A; mb9 14:17 Body Mass Index 31.45 (85.73 kg, 165.1 cm) ld1 14:17 Pain Scale: Adult ld1 ED Course: 14:02 Patient arrived in ED. rg4 14:02 Casey Broussard PA is PHCP. cp 14:02 Bossman Mckeon MD is Attending Physician. cp 14:18 Triage completed. ld1 14:22 Arm band placed on right wrist. ld1 15:06 Lisa Salinas, TALON is Primary Nurse. mb9 15:07 Fall risk band placed. Placed in gown. Bed in low position. Call light in reach. Side mb9 rails up X 1. Client placed on continuous cardiac and pulse oximetry monitoring. NIBP monitoring applied. Door closed. Noise minimized. Warm blanket given. 15:09 Provided Education on: press call light. mb9 15:20 Inserted saline lock: 20 gauge in right antecubital area, using aseptic technique. mb9 15:21 Initial lab(s) drawn, by wy, sent to lab. mb9 15:40 One-on-one care X 15 minutes. mb9 15:58 Assist provider with pelvic exam: Set up pelvic tray. Performed by Casey galvan Specimens sent to lab. Patient tolerated well. 16:26 Patient taken to ultrasound. via wheelchair. mb9 17:58 IV discontinued, intact, bleeding controlled, No redness/swelling at site. Pressure mb9 dressing applied. Administered Medications: No medications were administered Medication: 15:09 VIS not applicable for this client. mb9 Outcome: 17:54 Discharge ordered by . janusz 17:58 Discharged to home ambulatory, mb9 17:58 Condition: stable 17:58 Discharge instructions given to patient, Instructed on discharge instructions, follow up and referral plans. Demonstrated understanding of instructions, follow-up care, medications, Prescriptions given X 1, 17:59 Patient left the ED. mb9 Signatures: Casey Broussard PA PA cp Garcia, Rubi rg4 Elvia Munoz RN RN ld1 Lisa Salinas RN RN mb9
[2023-08-12 18:28] VITALS: BP 128/74; TEMP 97.6; O2SAT 100
== END ==
LOC: ER 13:59
DX: R10.30 Lower abdominal pain, unspecified (principal); Z88.0 Allergy status to penicillin
CPT/HCPCS: 36415; 76830; 80048; 81001; 81025; 84702; 85025; 87210; 87490; 87590

== ENCOUNTER 2023-08-31 20:13 | Emergency (ER) | payer SELFPAY ==
--- OUTSIDE RECORDS SUMMARY | 2023-08-31 20:21 | XMS REPORT | Continuity of Care Document ---
Author Name Unknown Address [address] [facility] [place] [address] [facility] [address] [facility] [address] [place] [address] Care Team Providers Care Straw Baler Name Role Phone Francesca Walsh Primary Care Physician [phone] Corey LEDEZMA Attending Clinician Unavailable Corey Neal Attending Clinician [phone] Doctor Unassigned, [place] Attending Clinician [facility] Gastroenterology Attending Clinicia n ALVARO HERNDON Attending Clinician Unavailable Alvaro Herndon MD Attending Clinician [phone] PRAKASH ALLAN Attending Clinician Unavailable Prakash Wells S Attending Clinician [phone] Felipa Castellanos Attending Clinician + FELIPA BRISENO Attending Clinician Unavail Annabella Munson NP Attending Clinician [phone] Lise Garcia RN Attending Clinician Unavailable Jake Jonas MD Attending Clinician [phone] Morena Benton DO Attending Clinician MORENA BENTON Attending Clinician Unavailab [place] Attending Clinician [phone] EL HUSSEIN Attending Clinician Unavailable Corey LEDEZMA [...] woman exam Disease Active 10-17 00:00: 00 [facility] Obesity (BMI 30-39.9) Obesity (BMI 30-39.9) Disease Active 10-17 00:00: 00 [facility] Pilonidal cyst Pilonidal cyst Disease Active 10-17 00:00: 00 [facility] No known active problems No known active problems Disease [facility] Allergies, Adverse Reactions, Alerts Allergy Name Allergy Type Status Severity Reaction(s) Onset Date Inactive Date Treating Clinician Comments Source Cat Dander Propensi ty to adverse reaction s Active Hives 10-17 00:00: 00 [facility] CAT DANDER DRUG INGREDI Active Hives 10-17 00:00: 00 [facility] Penicill ins Propensi ty to adverse reaction s Active Hives 02-15 00:00: 00 [facility] PENICILL INS Drug Class Active Hives 02-15 00:00: 00 [facility] Penicill ins Propensi ty to adverse reaction s Active Hives 02-15 00:00: 00 [facility] Social History Social Habit Start Date Stop Date Quantity Comments Source Gender identity [facility] History of tobacco use Cigarette Smoker [facility] History SDOH Alcohol Frequency [facility] History SDOH Alcohol Std Drinks [facility] History SDOH Alcohol Binge [facility] Exposure to SARS-CoV-2 (event) 2022-06-22 00:00:00 2022-07-02 12:36:00 Not sure [facility] History of Social function 2020-10-17 00:00:00 2020-10-17 00:00:00 [facility] Cigarettes smoked current (pack per day) - Reported 2020-10-17 00:00:00 2020-10-17 00:00:00 [facility] Tobacco use and exposure 2020-10-17 00:00:00 2020-10-17 00:00:00 Former smokeless tobacco user [facility] Alcohol intake 2020-10-17 00:00:00 2020-10-17 00:00:00 Current drinker of alcohol (finding) [facility] Tobacco Comment 2020-10-17 00:00:00 2020-10-17 00:00:00 8-10 cigarettes a day [facility] Alcohol Comment 2020-10-17 00:00:00 2020-10-17 00:00:00 socially [facility] Sex Assigned At 2000 00:00:00 2000 00:00:00 [facility] Smoking Status Start Date Stop Date Source Smokes tobacco daily 2020-10-17 00:00:00 [facility] Unknown if ever smoked [facility] Medications Ordered Medication Name Filled Medication Name Start Date Stop Date Current Medication? Ordering Clinician Indication Dosage Frequency Signature (SIG) Comments Components Source ketorolac (TORADOL) injection 30 mg 01-21 07:00: 00 01-21 06:05 :00 No 30mg 30 mg, Intramuscu lar, ONCE, 1 dose, On Fri01/21/23 at 0200, [facility] iopamidol (ISOVUE 370-500 mL) injection 80 mL 11-27 07:15: 00 11-27 06:24 :00 No [id number] 80mL 80 mL, Intravenou s, ONCE, 1 dose, On Fri11/27/22 at 0215, Routine [facility] NaCl 0.9% (NS) bolus infusion 1,000 mL 11-27 05:30: 00 11-27 06:58 :00 No 1000mL at 999 mL/hr, 1,000 mL, IV Infusion, ONCE, 1 dose, On Fri11/27/22 at 0030, STAT [facility] metoclopram shade HCl (REGLAN) injection 10 mg 11-27 04:30: 00 11-27 05:20 :00 No 10mg 10 mg, Slow IV Push, ONCE, 1 dose, On Fri11/26/22 at 2330, [facility] metoclopram shade HCl 10 mg tablet 11-27 00:00: 00 Yes [id number] 10mg Take 1 tablet by mouth every 6 (six) hours. [facility] famotidine 20 mg tablet 11-27 00:00: 00 Yes [id number] 20mg Take 1 tablet by mouth in the morning and 1 tablet in the evening. [facility] metoclopram shade HCl 10 mg tablet 11-27 00:00: 00 Yes [id number] 10mg Take 1 tablet by mouth every 6 (six) hours. [facility] famotidine 20 mg tablet 11-27 00:00: 00 Yes [id number] 20mg Take 1 tablet by mouth in the morning and 1 tablet in the evening. [facility] metoclopram shade HCl 10 mg tablet 11-27 00:00: 00 Yes [id number] 10mg Take 1 tablet by mouth every 6 (six) hours. [facility] famotidine 20 mg tablet 11-27 00:00: 00 Yes [id number] 20mg Take 1 tablet by mouth in the morning and 1 tablet in the evening. [facility] metoclopram shade HCl 10 mg tablet 11-27 00:00: 00 Yes [id number] 10mg Take 1 tablet by mouth every 6 (six) hours. [facility] famotidine 20 mg tablet 11-27 00:00: 00 Yes [id number] 20mg Take 1 tablet by mouth in the morning and 1 tablet in the evening. [facility] metoclopram shade HCl 10 mg tablet 11-27 00:00: 00 Yes [id number] 10mg Take 1 tablet by mouth every 6 (six) hours. [facility] famotidine 20 mg tablet 11-27 00:00: 00 Yes [id number] 20mg Take 1 tablet by mouth in the morning and 1 tablet in the evening. [facility] ibuprofen (IBU) tablet 600 mg 07-02 18:30: 00 07-02 18:57 :00 No 600mg 600 mg, Oral, ONCE, 1 dose, On Fri07/02/22 at 1230, [facility] clindamycin (CLEOCIN HCL) capsule 450 mg 09-13 [...] n use: pilonidal cyst allergic to PCN [facility] clindamycin 150 mg capsule 09-13 00:00: 00 09-24 04:59 :00 No [id number] 450mg Take 3 capsules by mouth 3 (three) times daily for 10 days. [facility] norgestimat e-ethinyl estradioL (ORTHO TRI-CYCLEN, 28,) 0.18/0.215/ 0.25 mg-35 mcg (28) tablet 11-07 00:00: 00 Yes [id number] 1{tbl} Take 1 tablet by mouth daily. [facility] norgestimat e-ethinyl estradioL (ORTHO TRI-CYCLEN, 28,) 0.18/0.215/ 0.25 mg-35 mcg (28) tablet 11-07 00:00: 00 Yes [id number] 1{tbl} Take 1 tablet by mouth daily. [facility] norgestimat e-ethinyl estradioL (ORTHO TRI-CYCLEN, 28,) 0.18/0.215/ 0.25 mg-35 mcg (28) tablet 11-07 00:00: 00 Yes [id number] 1{tbl} Take 1 tablet by mouth daily. [facility] norgestimat e-ethinyl estradioL (ORTHO TRI-CYCLEN, 28,) 0.18/0.215/ 0.25 mg-35 mcg (28) tablet 11-07 00:00: 00 Yes [id number] 1{tbl} Take 1 tablet by mouth daily. [facility] norgestimat e-ethinyl estradioL (ORTHO TRI-CYCLEN, 28,) 0.18/0.215/ 0.25 mg-35 mcg (28) tablet 11-07 00:00: 00 Yes [id number] 1{tbl} Take 1 tablet by mouth daily. [facility] norgestimat e-ethinyl estradioL (ORTHO TRI-CYCLEN, 28,) 0.18/0.215/ 0.25 mg-35 mcg (28) tablet 11-07 00:00: 00 Yes [id number] 1{tbl} Take 1 tablet by mouth daily. [facility] norgestimat e-ethinyl estradioL (ORTHO TRI-CYCLEN, 28,) 0.18/0.215/ 0.25 mg-35 mcg (28) tablet 11-07 00:00: 00 Yes [id number] 1{tbl} Take 1 tablet by mouth daily. [facility] norgestimat e-ethinyl estradioL (ORTHO TRI-CYCLEN, 28,) 0.18/0.215/ 0.25 mg-35 mcg (28) tablet 11-07 00:00: 00 Yes [id number] 1{tbl} Take 1 tablet by mouth daily. [facility] norgestimat e-ethinyl estradioL (ORTHO TRI-CYCLEN, 28,) 0.18/0.215/ 0.25 mg-35 mcg (28) tablet 11-07 00:00: 00 Yes [id number] 1{tbl} Take 1 tablet by mouth daily. [facility] norgestimat e-ethinyl estradioL (ORTHO TRI-CYCLEN, 28,) 0.18/0.215/ 0.25 mg-35 mcg (28) tablet 11-07 00:00: 00 Yes [id number] 1{tbl} Take 1 tablet by mouth daily. [facility] norgestimat e-ethinyl estradioL (ORTHO TRI-CYCLEN, 28,) 0.18/0.215/ 0.25 mg-35 mcg (28) tablet 11-07 00:00: 00 Yes [id number] 1{tbl} Take 1 tablet by mouth daily. [facility] norgestimat e-ethinyl estradioL (ORTHO TRI-CYCLEN, 28,) 0.18/0.215/ 0.25 mg-35 mcg (28) tablet 11-07 00:00: 00 Yes [id number] 1{tbl} Take 1 tablet by mouth daily. [facility] norgestimat e-ethinyl estradioL (ORTHO TRI-CYCLEN, 28,) 0.18/0.215/ 0.25 mg-35 mcg (28) tablet 11-07 00:00: 00 Yes [id number] 1{tbl} Take 1 tablet by mouth daily. [facility] norgestimat e-ethinyl estradioL (ORTHO TRI-CYCLEN, 28,) 0.18/0.215/ 0.25 mg-35 mcg (28) tablet 11-07 00:00: 00 Yes [id number] 1{tbl} Take 1 tablet by mouth daily. [facility] norgestimat e-ethinyl estradioL (ORTHO TRI-CYCLEN, 28,) 0.18/0.215/ 0.25 mg-35 mcg (28) tablet 11-07 00:00: 00 Yes [id number] 1{tbl} Take 1 tablet by mouth daily. [facility] norgestimat e-ethinyl estradioL (ORTHO TRI-CYCLEN, 28,) 0.18/0.215/ 0.25 mg-35 mcg (28) tablet 6-08 00:00: 00 Yes [id number] 1{tbl} Take 1 tablet by mouth daily. [facility] medroxyPROG ESTERone (PROVERA) 10 mg tablet 10-19 00:00: 00 10-30 04:59 :00 No [id number] 10mg Take 1 tablet by mouth daily for 10 days. [facility] medroxyPROG ESTERone (PROVERA) 10 mg tablet 10-19 00:00: 00 10-30 04:59 :00 No [id number] 10mg Take 1 tablet by mouth daily for 10 days. [facility] medroxyPROG ESTERone (PROVERA) 10 mg tablet 10-19 00:00: 00 10-30 04:59 :00 No [id number] 10mg Take 1 tablet by mouth daily for 10 days. [facility] medroxyPROG ESTERone (PROVERA) 10 mg tablet 10-19 00:00: 00 10-30 04:59 :00 No [id number] 10mg Take 1 tablet by mouth daily for 10 days. [facility] phentermine 37.5 mg capsule 10-17 18:21: 18 Yes 37.5mg Take 37.5 mg by mouth every morning. [facility] phentermine 37.5 mg capsule 10-17 18:21: 18 Yes 37.5mg Take 37.5 mg by mouth every morning. [facility] phentermine 37.5 mg capsule 10-17 18:21: 18 Yes 37.5mg Take 37.5 mg by mouth every morning. [facility] phentermine 37.5 mg capsule 10-17 18:21: 18 Yes 37.5mg Take 37.5 mg by mouth every morning. [facility] phentermine 37.5 mg capsule 10-17 18:21: 18 Yes 37.5mg Take 37.5 mg by mouth every morning. [facility] phentermine 37.5 mg capsule 10-17 18:21: 18 Yes 37.5mg Take 37.5 mg by mouth every morning. [facility] phentermine 37.5 mg capsule 10-17 18:21: 18 Yes 37.5mg Take 37.5 mg by mouth every morning. [facility] phentermine 37.5 mg capsule 10-17 18:21: 18 Yes 37.5mg Take 37.5 mg by mouth every morning. [facility] phentermine 37.5 mg capsule 10-17 18:21: 18 Yes 37.5mg Take 37.5 mg by mouth every morning. [facility] phentermine 37.5 mg capsule 10-17 18:21: 18 Yes 37.5mg Take 37.5 mg by mouth every morning. [facility] phentermine 37.5 mg capsule 10-17 18:21: 18 Yes 37.5mg Take 37.5 mg by mouth every morning. [facility] phentermine 37.5 mg capsule 10-17 18:21: 18 Yes 37.5mg Take 37.5 mg by mouth every morning. [facility] phentermine 37.5 mg capsule 10-17 18:21: 18 Yes 37.5mg Take 37.5 mg by mouth every morning. [facility] phentermine 37.5 mg capsule 10-17 18:21: 18 Yes 37.5mg Take 37.5 mg by mouth every morning. [facility] phentermine 37.5 mg capsule 10-17 18:21: 18 Yes 37.5mg Take 37.5 mg by mouth every morning. [facility] phentermine 37.5 mg capsule 10-17 18:21: 18 Yes 37.5mg Take 37.5 mg by mouth every morning. [facility] phentermine 37.5 mg capsule 10-17 18:21: 18 Yes 37.5mg Take 37.5 mg by mouth every morning. [facility] phentermine 37.5 mg capsule 10-17 18:21: 18 Yes 37.5mg Take 37.5 mg by mouth every morning. [facility] phentermine 37.5 mg capsule 10-17 18:21: 18 Yes 37.5mg Take 37.5 mg by mouth every morning. [facility] phentermine 37.5 mg capsule 10-17 13:21: 18 Yes 37.5mg Take 37.5 mg by mouth every morning. [facility] phentermine 37.5 mg capsule 10-17 13:21: 18 Yes 37.5mg Take 37.5 mg by mouth every morning. [facility] phentermine 37.5 mg capsule 10-17 13:21: 18 Yes 37.5mg Take 37.5 mg by mouth every morning. [facility] phentermine 37.5 mg capsule 10-17 13:21: 18 Yes 37.5mg Take 37.5 mg by mouth every morning. [facility] phentermine 37.5 mg capsule 10-17 13:21: 18 Yes 37.5mg Take 37.5 mg by mouth every morning. [facility] phentermine 37.5 mg capsule 10-17 13:21: 18 Yes 37.5mg Take 37.5 mg by mouth every morning. [facility] phentermine 37.5 mg capsule 10-17 13:21: 18 Yes 37.5mg Take 37.5 mg by mouth every morning. [facility] phentermine 37.5 mg capsule 10-17 13:21: 18 Yes 37.5mg Take 37.5 mg by mouth every morning. [facility] phentermine 37.5 mg capsule 10-17 13:21: 18 Yes 37.5mg Take 37.5 mg by mouth every morning. [facility] phentermine 37.5 mg capsule 10-17 13:21: 18 Yes 37.5mg Take 37.5 mg by mouth every morning. [facility] phentermine 37.5 mg capsule 10-17 13:21: 18 Yes 37.5mg Take 37.5 mg by mouth every morning. [facility] phentermine 37.5 mg capsule 10-17 13:21: 18 Yes 37.5mg Take 37.5 mg by mouth every morning. [facility] phentermine 37.5 mg capsule 10-17 13:21: 18 Yes 37.5mg Take 37.5 mg by mouth every morning. [facility] ketorolac (TORADOL) injection 30 mg 08-09 05:45: 00 08-09 05:42 :00 No 30mg 30 mg, Slow IV Push, ONCE, 1 dose, Fri08/08/20 at 2345, [facility] Restricted medication : MORENA BENTON [facility] sulfamethox azole-trime thoprim (BACTRIM DS) 800-160 mg per tablet 02-15 00:00: 00 Yes 2{tbl} Take 2 tablets by mouth 2 (two) times daily. [facility] traMADOL (ULTRAM) 50 mg tablet 02-15 00:00: 00 Yes 50mg Take 1-2 tablets by mouth every 8 (eight) hours as needed (severe pain, alternate with ibuprofen) . [facility] sulfamethox azole-trime thoprim (BACTRIM DS) 800-160 mg per tablet 02-15 00:00: 00 Yes 2{tbl} Take 2 tablets by mouth 2 (two) times daily. [facility] traMADOL (ULTRAM) 50 mg tablet 02-15 00:00: 00 Yes 50mg Take 1-2 tablets by mouth every 8 (eight) hours as needed (severe pain, alternate with ibuprofen) . [facility] sulfamethox azole-trime thoprim (BACTRIM DS) 800-160 mg per tablet 02-15 00:00: 00 Yes 2{tbl} Take 2 tablets by mouth 2 (two) times daily. [facility] traMADOL (ULTRAM) 50 mg tablet 02-15 00:00: 00 Yes 50mg Take 1-2 tablets by mouth every 8 (eight) hours as needed (severe pain, alternate with ibuprofen) . [facility] sulfamethox azole-trime thoprim (BACTRIM DS) 800-160 mg per tablet 02-15 00:00: 00 Yes 2{tbl} Take 2 tablets by mouth 2 (two) times daily. [facility] traMADOL (ULTRAM) 50 mg tablet 02-15 00:00: 00 Yes 50mg Take 1-2 tablets by mouth every 8 (eight) hours as needed (severe pain, alternate with ibuprofen) . [facility] sulfamethox azole-trime thoprim (BACTRIM DS) 800-160 mg per tablet 02-15 00:00: 00 10-17 00:00 :00 No 2{tbl} Take 2 tablets by mouth 2 (two) times daily. [facility] traMADOL (ULTRAM) 50 mg tablet 02-15 00:00: 00 10-17 00:00 :00 No 50mg Take 1-2 tablets by mouth every 8 (eight) hours as needed (severe pain, alternate with ibuprofen) . [facility] sulfamethox azole-trime thoprim (BACTRIM DS) 800-160 mg per tablet 02-15 00:00: 00 10-17 00:00 :00 No 2{tbl} Take 2 tablets by mouth 2 (two) times daily. [facility] traMADOL (ULTRAM) 50 mg tablet 02-15 00:00: 00 10-17 00:00 :00 No 50mg Take 1-2 tablets by mouth every 8 (eight) hours as needed (severe pain, alternate with ibuprofen) . [facility] Immunizations Ordered Immunization Name Filled Immunization Name Date Status Comments Source HPV9 2020-10-17 00:00:00 Completed [facility] HPV9 2020-10-17 00:00:00 Completed [facility] HPV9 2020-10-17 00:00:00 Completed [facility] HPV9 2020-10-17 00:00:00 Completed [facility] HPV9 2020-10-17 00:00:00 Completed [facility] HPV9 2020-10-17 00:00:00 Completed [facility] HPV9 2020-10-17 00:00:00 Completed [facility] HPV9 2020-10-17 00:00:00 Completed [facility] HPV9 2020-10-17 00:00:00 Completed [facility] HPV9 2020-10-17 00:00:00 Completed [facility] HPV9 2020-10-17 00:00:00 Completed [facility] HPV9 2020-10-17 00:00:00 Completed [facility] HPV9 2020-10-17 00:00:00 Completed [facility] HPV9 2020-10-17 00:00:00 Completed [facility] HPV9 2020-10-17 00:00:00 Completed [facility] HPV9 2020-10-17 00:00:00 Completed [facility] HPV9 2020-10-17 00:00:00 Completed [facility] HPV9 2020-10-17 00:00:00 Completed [facility] HPV9 2020-10-17 00:00:00 Completed [facility] HPV9 2020-10-17 00:00:00 Completed [facility] HPV9 2020-10-17 00:00:00 Completed [facility] HPV9 2020-10-17 00:00:00 Completed [facility] HPV9 2020-10-17 00:00:00 Completed [facility] HPV9 2020-10-17 00:00:00 Completed [facility] HPV9 2020-10-17 00:00:00 Completed [facility] HPV9 2020-10-17 00:00:00 Completed [facility] HPV9 2020-10-17 00:00:00 Completed [facility] HPV 2018-09-15 00:00:00 Completed [facility] Meningococcal Vaccine 2018-09-15 00:00:00 Completed [facility] HPV 2018-09-15 00:00:00 Completed [facility] Meningococcal Vaccine 2018-09-15 00:00:00 Completed [facility] HPV 2018-09-15 00:00:00 Completed [facility] Meningococcal Vaccine 2018-09-15 00:00:00 Completed [facility] HPV 2018-09-15 00:00:00 Completed [facility] Meningococcal Vaccine 2018-09-15 00:00:00 Completed [facility] HPV 2018-09-15 00:00:00 Completed [facility] Meningococcal Vaccine 2018-09-15 00:00:00 Completed [facility] HPV 2018-09-15 00:00:00 Completed [facility] Meningococcal Vaccine 2018-09-15 00:00:00 Completed [facility] HPV 2018-09-15 00:00:00 Completed [facility] Meningococcal Vaccine 2018-09-15 00:00:00 Completed [facility] HPV 2018-09-15 00:00:00 Completed [facility] Meningococcal Vaccine 2018-09-15 00:00:00 Completed [facility] HPV 2018-09-15 00:00:00 Completed [facility] Meningococcal Vaccine 2018-09-15 00:00:00 Completed [facility] HPV 2018-09-15 00:00:00 Completed [facility] Meningococcal Vaccine 2018-09-15 00:00:00 Completed [facility] HPV 2018-09-15 00:00:00 Completed [facility] Meningococcal Vaccine 2018-09-15 00:00:00 Completed [facility] HPV 2018-09-15 00:00:00 Completed [facility] Meningococcal Vaccine 2018-09-15 00:00:00 Completed [facility] HPV 2018-09-15 00:00:00 Completed [facility] Meningococcal Vaccine 2018-09-15 00:00:00 Completed [facility] HPV 2018-09-15 00:00:00 Completed [facility] Meningococcal Vaccine 2018-09-15 00:00:00 Completed [facility] HPV 2018-09-15 00:00:00 Completed [facility] Meningococcal Vaccine 2018-09-15 00:00:00 Completed [facility] HPV 2018-09-15 00:00:00 Completed [facility] Meningococcal Vaccine 2018-09-15 00:00:00 Completed [facility] HPV 2018-09-15 00:00:00 Completed [facility] Meningococcal Vaccine 2018-09-15 00:00:00 Completed [facility] HPV 2018-09-15 00:00:00 Completed [facility] Meningococcal Vaccine 2018-09-15 00:00:00 Completed [facility] HPV 2018-09-15 00:00:00 Completed [facility] Meningococcal Vaccine 2018-09-15 00:00:00 Completed [facility] HPV 2018-09-15 00:00:00 Completed [facility] Meningococcal Vaccine 2018-09-15 00:00:00 Completed [facility] HPV 2018-09-15 00:00:00 Completed [facility] Meningococcal Vaccine 2018-09-15 00:00:00 Completed [facility] HPV 2018-09-15 00:00:00 Completed [facility] Meningococcal Vaccine 2018-09-15 00:00:00 Completed [facility] HPV 2018-09-15 00:00:00 Completed [facility] Meningococcal Vaccine 2018-09-15 00:00:00 Completed [facility] HPV 2018-09-15 00:00:00 Completed [facility] Meningococcal Vaccine 2018-09-15 00:00:00 Completed [facility] HPV 2018-09-15 00:00:00 Completed [facility] Meningococcal Vaccine 2018-09-15 00:00:00 Completed [facility] HPV 2018-09-15 00:00:00 Completed [facility] Meningococcal Vaccine 2018-09-15 00:00:00 Completed [facility] HPV 2018-09-15 00:00:00 Completed [facility] Meningococcal Vaccine 2018-09-15 00:00:00 Completed [facility] HEPATITIS A 2012-01-21 00:00:00 Completed [facility] Meningococcal Vaccine 2012-01-21 00:00:00 Completed [facility] TDAP 2012-01-21 00:00:00 Completed [facility] Varicella (varivax)(chicken pox) 2012-01-21 00:00:00 Completed [facility] HEPATITIS A 2012-01-21 00:00:00 Completed [facility] Meningococcal Vaccine 2012-01-21 00:00:00 Completed [facility] TDAP 2012-01-21 00:00:00 Completed [facility] Varicella (varivax)(chicken pox) 2012-01-21 00:00:00 Completed [facility] HEPATITIS A 2012-01-21 00:00:00 Completed [facility] Meningococcal Vaccine 2012-01-21 00:00:00 Completed [facility] TDAP 2012-01-21 00:00:00 Completed [facility] Varicella (varivax)(chicken pox) 2012-01-21 00:00:00 Completed [facility] HEPATITIS A 2012-01-21 00:00:00 Completed [facility] Meningococcal Vaccine 2012-01-21 00:00:00 Completed [facility] TDAP 2012-01-21 00:00:00 Completed [facility] Varicella (varivax)(chicken pox) 2012-01-21 00:00:00 Completed [facility] HEPATITIS A 2012-01-21 00:00:00 Completed [facility] Meningococcal Vaccine 2012-01-21 00:00:00 Completed [facility] TDAP 2012-01-21 00:00:00 Completed [facility] Varicella (varivax)(chicken pox) 2012-01-21 00:00:00 Completed [facility] HEPATITIS A 2012-01-21 00:00:00 Completed [facility] Meningococcal Vaccine 2012-01-21 00:00:00 Completed [facility] TDAP 2012-01-21 00:00:00 Completed [facility] Varicella (varivax)(chicken pox) 2012-01-21 00:00:00 Completed [facility] HEPATITIS A 2012-01-21 00:00:00 Completed [facility] Meningococcal Vaccine 2012-01-21 00:00:00 Completed [facility] TDAP 2012-01-21 00:00:00 Completed [facility] Varicella (varivax)(chicken pox) 2012-01-21 00:00:00 Completed [facility] HEPATITIS A 2012-01-21 00:00:00 Completed [facility] Meningococcal Vaccine 2012-01-21 00:00:00 Completed [facility] TDAP 2012-01-21 00:00:00 Completed [facility] Varicella (varivax)(chicken pox) 2012-01-21 00:00:00 Completed [facility] HEPATITIS A 2012-01-21 00:00:00 Completed [facility] Meningococcal Vaccine 2012-01-21 00:00:00 Completed [facility] TDAP 2012-01-21 00:00:00 Completed [facility] Varicella (varivax)(chicken pox) 2012-01-21 00:00:00 Completed [facility] HEPATITIS A 2012-01-21 00:00:00 Completed [facility] Meningococcal Vaccine 2012-01-21 00:00:00 Completed [facility] TDAP 2012-01-21 00:00:00 Completed [facility] Varicella (varivax)(chicken pox) 2012-01-21 00:00:00 Completed [facility] HEPATITIS A 2012-01-21 00:00:00 Completed [facility] Meningococcal Vaccine 2012-01-21 00:00:00 Completed [facility] TDAP 2012-01-21 00:00:00 Completed [facility] Varicella (varivax)(chicken pox) 2012-01-21 00:00:00 Completed [facility] HEPATITIS A 2012-01-21 00:00:00 Completed [facility] Meningococcal Vaccine 2012-01-21 00:00:00 Completed [facility] TDAP 2012-01-21 00:00:00 Completed [facility] Varicella (varivax)(chicken pox) 2012-01-21 00:00:00 Completed [facility] HEPATITIS A 2012-01-21 00:00:00 Completed [facility] Meningococcal Vaccine 2012-01-21 00:00:00 Completed [facility] TDAP 2012-01-21 00:00:00 Completed [facility] Varicella (varivax)(chicken pox) 2012-01-21 00:00:00 Completed [facility] HEPATITIS A 2012-01-21 00:00:00 Completed [facility] Meningococcal Vaccine 2012-01-21 00:00:00 Completed [facility] TDAP 2012-01-21 00:00:00 Completed [facility] Varicella (varivax)(chicken pox) 2012-01-21 00:00:00 Completed [facility] HEPATITIS A 2012-01-21 00:00:00 Completed [facility] Meningococcal Vaccine 2012-01-21 00:00:00 Completed [facility] TDAP 2012-01-21 00:00:00 Completed [facility] Varicella (varivax)(chicken pox) 2012-01-21 00:00:00 Completed [facility] HEPATITIS A 2012-01-21 00:00:00 Completed [facility] Meningococcal Vaccine 2012-01-21 00:00:00 Completed [facility] TDAP 2012-01-21 00:00:00 Completed [facility] Varicella (varivax)(chicken pox) 2012-01-21 00:00:00 Completed [facility] HEPATITIS A 2012-01-21 00:00:00 Completed [facility] Meningococcal Vaccine 2012-01-21 00:00:00 Completed [facility] TDAP 2012-01-21 00:00:00 Completed [facility] Varicella (varivax)(chicken pox) 2012-01-21 00:00:00 Completed [facility] HEPATITIS A 2012-01-21 00:00:00 Completed [facility] Meningococcal Vaccine 2012-01-21 00:00:00 Completed [facility] TDAP 2012-01-21 00:00:00 Completed [facility] Varicella (varivax)(chicken pox) 2012-01-21 00:00:00 Completed [facility] HEPATITIS A 2012-01-21 00:00:00 Completed [facility] Meningococcal Vaccine 2012-01-21 00:00:00 Completed [facility] TDAP 2012-01-21 00:00:00 Completed [facility] Varicella (varivax)(chicken pox) 2012-01-21 00:00:00 Completed [facility] HEPATITIS A 2012-01-21 00:00:00 Completed [facility] Meningococcal Vaccine 2012-01-21 00:00:00 Completed [facility] TDAP 2012-01-21 00:00:00 Completed [facility] Varicella (varivax)(chicken pox) 2012-01-21 00:00:00 Completed [facility] HEPATITIS A 2012-01-21 00:00:00 Completed [facility] Meningococcal Vaccine 2012-01-21 00:00:00 Completed [facility] TDAP 2012-01-21 00:00:00 Completed [facility] Varicella (varivax)(chicken pox) 2012-01-21 00:00:00 Completed [facility] HEPATITIS A 2012-01-21 00:00:00 Completed [facility] Meningococcal Vaccine 2012-01-21 00:00:00 Completed [facility] TDAP 2012-01-21 00:00:00 Completed [facility] Varicella (varivax)(chicken pox) 2012-01-21 00:00:00 Completed [facility] HEPATITIS A 2012-01-21 00:00:00 Completed [facility] Meningococcal Vaccine 2012-01-21 00:00:00 Completed [facility] TDAP 2012-01-21 00:00:00 Completed [facility] Varicella (varivax)(chicken pox) 2012-01-21 00:00:00 Completed [facility] HEPATITIS A 2012-01-21 00:00:00 Completed [facility] Meningococcal Vaccine 2012-01-21 00:00:00 Completed [facility] TDAP 2012-01-21 00:00:00 Completed [facility] Varicella (varivax)(chicken pox) 2012-01-21 00:00:00 Completed [facility] HEPATITIS A 2012-01-21 00:00:00 Completed [facility] Meningococcal Vaccine 2012-01-21 00:00:00 Completed [facility] TDAP 2012-01-21 00:00:00 Completed [facility] Varicella (varivax)(chicken pox) 2012-01-21 00:00:00 Completed [facility] HEPATITIS A 2012-01-21 00:00:00 Completed [facility] Meningococcal Vaccine 2012-01-21 00:00:00 Completed [facility] TDAP 2012-01-21 00:00:00 Completed [facility] Varicella (varivax)(chicken pox) 2012-01-21 00:00:00 Completed [facility] HEPATITIS A 2012-01-21 00:00:00 Completed [facility] Meningococcal Vaccine 2012-01-21 00:00:00 Completed [facility] TDAP 2012-01-21 00:00:00 Completed [facility] Varicella (varivax)(chicken pox) 2012-01-21 00:00:00 Completed [facility] MMR 2005-01-08 00:00:00 Completed [facility] MMR 2005-01-08 00:00:00 Completed [facility] MMR 2005-01-08 00:00:00 Completed [facility] MMR 2005-01-08 00:00:00 Completed [facility] MMR 2005-01-08 00:00:00 Completed [facility] MMR 2005-01-08 00:00:00 Completed [facility] MMR 2005-01-08 00:00:00 Completed [facility] MMR 2005-01-08 00:00:00 Completed [facility] MMR 2005-01-08 00:00:00 Completed [facility] MMR 2005-01-08 00:00:00 Completed [facility] MMR 2005-01-08 00:00:00 Completed [facility] MMR 2005-01-08 00:00:00 Completed [facility] MMR 2005-01-08 00:00:00 Completed [facility] MMR 2005-01-08 00:00:00 Completed [facility] MMR 2005-01-08 00:00:00 Completed [facility] MMR 2005-01-08 00:00:00 Completed [facility] MMR 2005-01-08 00:00:00 Completed [facility] MMR 2005-01-08 00:00:00 Completed [facility] MMR 2005-01-08 00:00:00 Completed [facility] MMR 2005-01-08 00:00:00 Completed [facility] MMR 2005-01-08 00:00:00 Completed [facility] MMR 2005-01-08 00:00:00 Completed [facility] MMR 2005-01-08 00:00:00 Completed [facility] MMR 2005-01-08 00:00:00 Completed [facility] MMR 2005-01-08 00:00:00 Completed [facility] MMR 2005-01-08 00:00:00 Completed [facility] MMR 2005-01-08 00:00:00 Completed [facility] DTAP 2004-12-07 00:00:00 Completed [facility] MMR 2004-12-07 00:00:00 Completed [facility] Pneumococcal 13 Conjugate, PCV13 (Prevnar 13) 2004-12-07 00:00:00 Completed [facility] Polio (IPV/OPV) 2004-12-07 00:00:00 Completed [facility] Varicella (varivax)(chicken pox) 2004-12-07 00:00:00 Completed [facility] DTAP 2004-12-07 00:00:00 Completed [facility] MMR 2004-12-07 00:00:00 Completed [facility] Pneumococcal 13 Conjugate, PCV13 (Prevnar 13) 2004-12-07 00:00:00 Completed [facility] Polio (IPV/OPV) 2004-12-07 00:00:00 Completed [facility] Varicella (varivax)(chicken pox) 2004-12-07 00:00:00 Completed [facility] DTAP 2004-12-07 00:00:00 Completed [facility] MMR 2004-12-07 00:00:00 Completed [facility] Pneumococcal 13 Conjugate, PCV13 (Prevnar 13) 2004-12-07 00:00:00 Completed [facility] Polio (IPV/OPV) 2004-12-07 00:00:00 Completed [facility] Varicella (varivax)(chicken pox) 2004-12-07 00:00:00 Completed [facility] DTAP 2004-12-07 00:00:00 Completed [facility] MMR 2004-12-07 00:00:00 Completed [facility] Pneumococcal 13 Conjugate, PCV13 (Prevnar 13) 2004-12-07 00:00:00 Completed [facility] Polio (IPV/OPV) 2004-12-07 00:00:00 Completed [facility] Varicella (varivax)(chicken pox) 2004-12-07 00:00:00 Completed [facility] DTAP 2004-12-07 00:00:00 Completed [facility] MMR 2004-12-07 00:00:00 Completed [facility] Pneumococcal 13 Conjugate, PCV13 (Prevnar 13) 2004-12-07 00:00:00 Completed [facility] Polio (IPV/OPV) 2004-12-07 00:00:00 Completed [facility] Varicella (varivax)(chicken pox) 2004-12-07 00:00:00 Completed [facility] DTAP 2004-12-07 00:00:00 Completed [facility] MMR 2004-12-07 00:00:00 Completed [facility] Pneumococcal 13 Conjugate, PCV13 (Prevnar 13) 2004-12-07 00:00:00 Completed [facility] Polio (IPV/OPV) 2004-12-07 00:00:00 Completed [facility] Varicella (varivax)(chicken pox) 2004-12-07 00:00:00 Completed [facility] DTAP 2004-12-07 00:00:00 Completed [facility] MMR 2004-12-07 00:00:00 Completed [facility] Pneumococcal 13 Conjugate, PCV13 (Prevnar 13) 2004-12-07 00:00:00 Completed [facility] Polio (IPV/OPV) 2004-12-07 00:00:00 Completed [facility] Varicella (varivax)(chicken pox) 2004-12-07 00:00:00 Completed [facility] DTAP 2004-12-07 00:00:00 Completed [facility] MMR 2004-12-07 00:00:00 Completed [facility] Pneumococcal 13 Conjugate, PCV13 (Prevnar 13) 2004-12-07 00:00:00 Completed [facility] Polio (IPV/OPV) 2004-12-07 00:00:00 Completed [facility] Varicella (varivax)(chicken pox) 2004-12-07 00:00:00 Completed [facility] DTAP 2004-12-07 00:00:00 Completed [facility] MMR 2004-12-07 00:00:00 Completed [facility] Pneumococcal 13 Conjugate, PCV13 (Prevnar 13) 2004-12-07 00:00:00 Completed [facility] Polio (IPV/OPV) 2004-12-07 00:00:00 Completed [facility] Varicella (varivax)(chicken pox) 2004-12-07 00:00:00 Completed [facility] DTAP 2004-12-07 00:00:00 Completed [facility] MMR 2004-12-07 00:00:00 Completed [facility] Pneumococcal 13 Conjugate, PCV13 (Prevnar 13) 2004-12-07 00:00:00 Completed [facility] Polio (IPV/OPV) 2004-12-07 00:00:00 Completed [facility] Varicella (varivax)(chicken pox) 2004-12-07 00:00:00 Completed [facility] DTAP 2004-12-07 00:00:00 Completed [facility] MMR 2004-12-07 00:00:00 Completed [facility] Pneumococcal 13 Conjugate, PCV13 (Prevnar 13) 2004-12-07 00:00:00 Completed [facility] Polio (IPV/OPV) 2004-12-07 00:00:00 Completed [facility] Varicella (varivax)(chicken pox) 2004-12-07 00:00:00 Completed [facility] DTAP 2004-12-07 00:00:00 Completed [facility] MMR 2004-12-07 00:00:00 Completed [facility] Pneumococcal 13 Conjugate, PCV13 (Prevnar 13) 2004-12-07 00:00:00 Completed [facility] Polio (IPV/OPV) 2004-12-07 00:00:00 Completed [facility] Varicella (varivax)(chicken pox) 2004-12-07 00:00:00 Completed [facility] DTAP 2004-12-07 00:00:00 Completed [facility] MMR 2004-12-07 00:00:00 Completed [facility] Pneumococcal 13 Conjugate, PCV13 (Prevnar 13) 2004-12-07 00:00:00 Completed [facility] Polio (IPV/OPV) 2004-12-07 00:00:00 Completed [facility] Varicella (varivax)(chicken pox) 2004-12-07 00:00:00 Completed [facility] DTAP 2004-12-07 00:00:00 Completed [facility] MMR 2004-12-07 00:00:00 Completed [facility] Pneumococcal 13 Conjugate, PCV13 (Prevnar 13) 2004-12-07 00:00:00 Completed [facility] Polio (IPV/OPV) 2004-12-07 00:00:00 Completed [facility] Varicella (varivax)(chicken pox) 2004-12-07 00:00:00 Completed [facility] DTAP 2004-12-07 00:00:00 Completed [facility] MMR 2004-12-07 00:00:00 Completed [facility] Pneumococcal 13 Conjugate, PCV13 (Prevnar 13) 2004-12-07 00:00:00 Completed [facility] Polio (IPV/OPV) 2004-12-07 00:00:00 Completed [facility] Varicella (varivax)(chicken pox) 2004-12-07 00:00:00 Completed [facility] DTAP 2004-12-07 00:00:00 Completed [facility] MMR 2004-12-07 00:00:00 Completed [facility] Pneumococcal 13 Conjugate, PCV13 (Prevnar 13) 2004-12-07 00:00:00 Completed [facility] Polio (IPV/OPV) 2004-12-07 00:00:00 Completed [facility] Varicella (varivax)(chicken pox) 2004-12-07 00:00:00 Completed [facility] DTAP 2004-12-07 00:00:00 Completed [facility] MMR 2004-12-07 00:00:00 Completed [facility] Pneumococcal 13 Conjugate, PCV13 (Prevnar 13) 2004-12-07 00:00:00 Completed [facility] Polio (IPV/OPV) 2004-12-07 00:00:00 Completed [facility] Varicella (varivax)(chicken pox) 2004-12-07 00:00:00 Completed [facility] DTAP 2004-12-07 00:00:00 Completed [facility] MMR 2004-12-07 00:00:00 Completed [facility] Pneumococcal 13 Conjugate, PCV13 (Prevnar 13) 2004-12-07 00:00:00 Completed [facility] Polio (IPV/OPV) 2004-12-07 00:00:00 Completed [facility] Varicella (varivax)(chicken pox) 2004-12-07 00:00:00 Completed [facility] DTAP 2004-12-07 00:00:00 Completed [facility] MMR 2004-12-07 00:00:00 Completed [facility] Pneumococcal 13 Conjugate, PCV13 (Prevnar 13) 2004-12-07 00:00:00 Completed [facility] Polio (IPV/OPV) 2004-12-07 00:00:00 Completed [facility] Varicella (varivax)(chicken pox) 2004-12-07 00:00:00 Completed [facility] DTAP 2004-12-07 00:00:00 Completed [facility] MMR 2004-12-07 00:00:00 Completed [facility] Pneumococcal 13 Conjugate, PCV13 (Prevnar 13) 2004-12-07 00:00:00 Completed [facility] Polio (IPV/OPV) 2004-12-07 00:00:00 Completed [facility] Varicella (varivax)(chicken pox) 2004-12-07 00:00:00 Completed [facility] DTAP 2004-12-07 00:00:00 Completed [facility] MMR 2004-12-07 00:00:00 Completed [facility] Pneumococcal 13 Conjugate, PCV13 (Prevnar 13) 2004-12-07 00:00:00 Completed [facility] Polio (IPV/OPV) 2004-12-07 00:00:00 Completed [facility] Varicella (varivax)(chicken pox) 2004-12-07 00:00:00 Completed [facility] DTAP 2004-12-07 00:00:00 Completed [facility] MMR 2004-12-07 00:00:00 Completed [facility] Pneumococcal 13 Conjugate, PCV13 (Prevnar 13) 2004-12-07 00:00:00 Completed [facility] Polio (IPV/OPV) 2004-12-07 00:00:00 Completed [facility] Varicella (varivax)(chicken pox) 2004-12-07 00:00:00 Completed [facility] DTAP 2004-12-07 00:00:00 Completed [facility] MMR 2004-12-07 00:00:00 Completed [facility] Pneumococcal 13 Conjugate, PCV13 (Prevnar 13) 2004-12-07 00:00:00 Completed [facility] Polio (IPV/OPV) 2004-12-07 00:00:00 Completed [facility] Varicella (varivax)(chicken pox) 2004-12-07 00:00:00 Completed [facility] DTAP 2004-12-07 00:00:00 Completed [facility] MMR 2004-12-07 00:00:00 Completed [facility] Pneumococcal 13 Conjugate, PCV13 (Prevnar 13) 2004-12-07 00:00:00 Completed [facility] Polio (IPV/OPV) 2004-12-07 00:00:00 Completed [facility] Varicella (varivax)(chicken pox) 2004-12-07 00:00:00 Completed [facility] DTAP 2004-12-07 00:00:00 Completed [facility] MMR 2004-12-07 00:00:00 Completed [facility] Pneumococcal 13 Conjugate, PCV13 (Prevnar 13) 2004-12-07 00:00:00 Completed [facility] Polio (IPV/OPV) 2004-12-07 00:00:00 Completed [facility] Varicella (varivax)(chicken pox) 2004-12-07 00:00:00 Completed [facility] DTAP 2004-12-07 00:00:00 Completed [facility] MMR 2004-12-07 00:00:00 Completed [facility] Pneumococcal 13 Conjugate, PCV13 (Prevnar 13) 2004-12-07 00:00:00 Completed [facility] Polio (IPV/OPV) 2004-12-07 00:00:00 Completed [facility] Varicella (varivax)(chicken pox) 2004-12-07 00:00:00 Completed [facility] DTAP 2004-12-07 00:00:00 Completed [facility] MMR 2004-12-07 00:00:00 Completed [facility] Pneumococcal 13 Conjugate, PCV13 (Prevnar 13) 2004-12-07 00:00:00 Completed [facility] Polio (IPV/OPV) 2004-12-07 00:00:00 Completed [facility] Varicella (varivax)(chicken pox) 2004-12-07 00:00:00 Completed [facility] DTAP 2001-03-04 00:00:00 Completed [facility] HIB 3 Dose Schedule 2001-03-04 00:00:00 Completed [facility] Hep B, Adol or Pedi Dosage 2001-03-04 00:00:00 Completed [facility] Polio (IPV/OPV) 2001-03-04 00:00:00 Completed [facility] DTAP 2001-03-04 00:00:00 Completed [facility] HIB 3 Dose Schedule 2001-03-04 00:00:00 Completed [facility] Hep B, Adol or Pedi Dosage 2001-03-04 00:00:00 Completed [facility] Polio (IPV/OPV) 2001-03-04 00:00:00 Completed [facility] DTAP 2001-03-04 00:00:00 Completed [facility] HIB 3 Dose Schedule 2001-03-04 00:00:00 Completed [facility] Hep B, Adol or Pedi Dosage 2001-03-04 00:00:00 Completed [facility] Polio (IPV/OPV) 2001-03-04 00:00:00 Completed [facility] DTAP 2001-03-04 00:00:00 Completed [facility] HIB 3 Dose Schedule 2001-03-04 00:00:00 Completed [facility] Hep B, Adol or Pedi Dosage 2001-03-04 00:00:00 Completed [facility] Polio (IPV/OPV) 2001-03-04 00:00:00 Completed [facility] DTAP 2001-03-04 00:00:00 Completed [facility] HIB 3 Dose Schedule 2001-03-04 00:00:00 Completed [facility] Hep B, Adol or Pedi Dosage 2001-03-04 00:00:00 Completed [facility] Polio (IPV/OPV) 2001-03-04 00:00:00 Completed [facility] DTAP 2001-03-04 00:00:00 Completed [facility] HIB 3 Dose Schedule 2001-03-04 00:00:00 Completed [facility] Hep B, Adol or Pedi Dosage 2001-03-04 00:00:00 Completed [facility] Polio (IPV/OPV) 2001-03-04 00:00:00 Completed [facility] DTAP 2001-03-04 00:00:00 Completed [facility] HIB 3 Dose Schedule 2001-03-04 00:00:00 Completed [facility] Hep B, Adol or Pedi Dosage 2001-03-04 00:00:00 Completed [facility] Polio (IPV/OPV) 2001-03-04 00:00:00 Completed [facility] DTAP 2001-03-04 00:00:00 Completed [facility] HIB 3 Dose Schedule 2001-03-04 00:00:00 Completed [facility] Hep B, Adol or Pedi Dosage 2001-03-04 00:00:00 Completed [facility] Polio (IPV/OPV) 2001-03-04 00:00:00 Completed [facility] DTAP 2001-03-04 00:00:00 Completed [facility] HIB 3 Dose Schedule 2001-03-04 00:00:00 Completed [facility] Hep B, Adol or Pedi Dosage 2001-03-04 00:00:00 Completed [facility] Polio (IPV/OPV) 2001-03-04 00:00:00 Completed [facility] DTAP 2001-03-04 00:00:00 Completed [facility] HIB 3 Dose Schedule 2001-03-04 00:00:00 Completed [facility] Hep B, Adol or Pedi Dosage 2001-03-04 00:00:00 Completed [facility] Polio (IPV/OPV) 2001-03-04 00:00:00 Completed [facility] DTAP 2001-03-04 00:00:00 Completed [facility] HIB 3 Dose Schedule 2001-03-04 00:00:00 Completed [facility] Hep B, Adol or Pedi Dosage 2001-03-04 00:00:00 Completed [facility] Polio (IPV/OPV) 2001-03-04 00:00:00 Completed [facility] DTAP 2001-03-04 00:00:00 Completed [facility] HIB 3 Dose Schedule 2001-03-04 00:00:00 Completed [facility] Hep B, Adol or Pedi Dosage 2001-03-04 00:00:00 Completed [facility] Polio (IPV/OPV) 2001-03-04 00:00:00 Completed [facility] DTAP 2001-03-04 00:00:00 Completed [facility] HIB 3 Dose Schedule 2001-03-04 00:00:00 Completed [facility] Hep B, Adol or Pedi Dosage 2001-03-04 00:00:00 Completed [facility] Polio (IPV/OPV) 2001-03-04 00:00:00 Completed [facility] DTAP 2001-03-04 00:00:00 Completed [facility] HIB 3 Dose Schedule 2001-03-04 00:00:00 Completed [facility] Hep B, Adol or Pedi Dosage 2001-03-04 00:00:00 Completed [facility] Polio (IPV/OPV) 2001-03-04 00:00:00 Completed [facility] DTAP 2001-03-04 00:00:00 Completed [facility] HIB 3 Dose Schedule 2001-03-04 00:00:00 Completed [facility] Hep B, Adol or Pedi Dosage 2001-03-04 00:00:00 Completed [facility] Polio (IPV/OPV) 2001-03-04 00:00:00 Completed [facility] DTAP 2001-03-04 00:00:00 Completed [facility] HIB 3 Dose Schedule 2001-03-04 00:00:00 Completed [facility] Hep B, Adol or Pedi Dosage 2001-03-04 00:00:00 Completed [facility] Polio (IPV/OPV) 2001-03-04 00:00:00 Completed [facility] DTAP 2001-03-04 00:00:00 Completed [facility] HIB 3 Dose Schedule 2001-03-04 00:00:00 Completed [facility] Hep B, Adol or Pedi Dosage 2001-03-04 00:00:00 Completed [facility] Polio (IPV/OPV) 2001-03-04 00:00:00 Completed [facility] DTAP 2001-03-04 00:00:00 Completed [facility] HIB 3 Dose Schedule 2001-03-04 00:00:00 Completed [facility] Hep B, Adol or Pedi Dosage 2001-03-04 00:00:00 Completed [facility] Polio (IPV/OPV) 2001-03-04 00:00:00 Completed [facility] DTAP 2001-03-04 00:00:00 Completed [facility] HIB 3 Dose Schedule 2001-03-04 00:00:00 Completed [facility] Hep B, Adol or Pedi Dosage 2001-03-04 00:00:00 Completed [facility] Polio (IPV/OPV) 2001-03-04 00:00:00 Completed [facility] DTAP 2001-03-04 00:00:00 Completed [facility] HIB 3 Dose Schedule 2001-03-04 00:00:00 Completed [facility] Hep B, Adol or Pedi Dosage 2001-03-04 00:00:00 Completed [facility] Polio (IPV/OPV) 2001-03-04 00:00:00 Completed [facility] DTAP 2001-03-04 00:00:00 Completed [facility] HIB 3 Dose Schedule 2001-03-04 00:00:00 Completed [facility] Hep B, Adol or Pedi Dosage 2001-03-04 00:00:00 Completed [facility] Polio (IPV/OPV) 2001-03-04 00:00:00 Completed [facility] DTAP 2001-03-04 00:00:00 Completed [facility] HIB 3 Dose Schedule 2001-03-04 00:00:00 Completed [facility] Hep B, Adol or Pedi Dosage 2001-03-04 00:00:00 Completed [facility] Polio (IPV/OPV) 2001-03-04 00:00:00 Completed [facility] DTAP 2001-03-04 00:00:00 Completed [facility] HIB 3 Dose Schedule 2001-03-04 00:00:00 Completed [facility] Hep B, Adol or Pedi Dosage 2001-03-04 00:00:00 Completed [facility] Polio (IPV/OPV) 2001-03-04 00:00:00 Completed [facility] DTAP 2001-03-04 00:00:00 Completed [facility] HIB 3 Dose Schedule 2001-03-04 00:00:00 Completed [facility] Hep B, Adol or Pedi Dosage 2001-03-04 00:00:00 Completed [facility] Polio (IPV/OPV) 2001-03-04 00:00:00 Completed [facility] DTAP 2001-03-04 00:00:00 Completed [facility] HIB 3 Dose Schedule 2001-03-04 00:00:00 Completed [facility] Hep B, Adol or Pedi Dosage 2001-03-04 00:00:00 Completed [facility] Polio (IPV/OPV) 2001-03-04 00:00:00 Completed [facility] DTAP 2001-03-04 00:00:00 Completed [facility] HIB 3 Dose Schedule 2001-03-04 00:00:00 Completed [facility] Hep B, Adol or Pedi Dosage 2001-03-04 00:00:00 Completed [facility] Polio (IPV/OPV) 2001-03-04 00:00:00 Completed [facility] DTAP 2001-03-04 00:00:00 Completed [facility] HIB 3 Dose Schedule 2001-03-04 00:00:00 Completed [facility] Hep B, Adol or Pedi Dosage 2001-03-04 00:00:00 Completed [facility] Polio (IPV/OPV) 2001-03-04 00:00:00 Completed [facility] Hep B, Adol or Pedi Dosage 2000-03-05 00:00:00 Completed [facility] Polio (IPV/OPV) 2000-03-05 00:00:00 Completed [facility] DTAP 2000-03-05 00:00:00 Completed [facility] HIB 3 Dose Schedule 2000-03-05 00:00:00 Completed [facility] Hep B, Adol or Pedi Dosage 2000-03-05 00:00:00 Completed [facility] Polio (IPV/OPV) 2000-03-05 00:00:00 Completed [facility] DTAP 2000-03-05 00:00:00 Completed [facility] HIB 3 Dose Schedule 2000-03-05 00:00:00 Completed [facility] Hep B, Adol or Pedi Dosage 2000-03-05 00:00:00 Completed [facility] Polio (IPV/OPV) 2000-03-05 00:00:00 Completed [facility] DTAP 2000-03-05 00:00:00 Completed [facility] HIB 3 Dose Schedule 2000-03-05 00:00:00 Completed [facility] Hep B, Adol or Pedi Dosage 2000-03-05 00:00:00 Completed [facility] Polio (IPV/OPV) 2000-03-05 00:00:00 Completed [facility] DTAP 2000-03-05 00:00:00 Completed [facility] HIB 3 Dose Schedule 2000-03-05 00:00:00 Completed [facility] Hep B, Adol or Pedi Dosage 2000-03-05 00:00:00 Completed [facility] Polio (IPV/OPV) 2000-03-05 00:00:00 Completed [facility] DTAP 2000-03-05 00:00:00 Completed [facility] HIB 3 Dose Schedule 2000-03-05 00:00:00 Completed [facility] Hep B, Adol or Pedi Dosage 2000-03-05 00:00:00 Completed [facility] Polio (IPV/OPV) 2000-03-05 00:00:00 Completed [facility] DTAP 2000-03-05 00:00:00 Completed [facility] HIB 3 Dose Schedule 2000-03-05 00:00:00 Completed [facility] Hep B, Adol or Pedi Dosage 2000-03-05 00:00:00 Completed [facility] Polio (IPV/OPV) 2000-03-05 00:00:00 Completed [facility] DTAP 2000-03-05 00:00:00 Completed [facility] HIB 3 Dose Schedule 2000-03-05 00:00:00 Completed [facility] Hep B, Adol or Pedi Dosage 2000-03-05 00:00:00 Completed [facility] Polio (IPV/OPV) 2000-03-05 00:00:00 Completed [facility] DTAP 2000-03-05 00:00:00 Completed [facility] HIB 3 Dose Schedule 2000-03-05 00:00:00 Completed [facility] Hep B, Adol or Pedi Dosage 2000-03-05 00:00:00 Completed [facility] Polio (IPV/OPV) 2000-03-05 00:00:00 Completed [facility] DTAP 2000-03-05 00:00:00 Completed [facility] HIB 3 Dose Schedule 2000-03-05 00:00:00 Completed [facility] Hep B, Adol or Pedi Dosage 2000-03-05 00:00:00 Completed [facility] Polio (IPV/OPV) 2000-03-05 00:00:00 Completed [facility] DTAP 2000-03-05 00:00:00 Completed [facility] HIB 3 Dose Schedule 2000-03-05 00:00:00 Completed [facility] Hep B, Adol or Pedi Dosage 2000-03-05 00:00:00 Completed [facility] Polio (IPV/OPV) 2000-03-05 00:00:00 Completed [facility] DTAP 2000-03-05 00:00:00 Completed [facility] HIB 3 Dose Schedule 2000-03-05 00:00:00 Completed [facility] Hep B, Adol or Pedi Dosage 2000-03-05 00:00:00 Completed [facility] Polio (IPV/OPV) 2000-03-05 00:00:00 Completed [facility] DTAP 2000-03-05 00:00:00 Completed [facility] HIB 3 Dose Schedule 2000-03-05 00:00:00 Completed [facility] Hep B, Adol or Pedi Dosage 2000-03-05 00:00:00 Completed [facility] Polio (IPV/OPV) 2000-03-05 00:00:00 Completed [facility] DTAP 2000-03-05 00:00:00 Completed [facility] HIB 3 Dose Schedule 2000-03-05 00:00:00 Completed [facility] Hep B, Adol or Pedi Dosage 2000-03-05 00:00:00 Completed [facility] Polio (IPV/OPV) 2000-03-05 00:00:00 Completed [facility] DTAP 2000-03-05 00:00:00 Completed [facility] HIB 3 Dose Schedule 2000-03-05 00:00:00 Completed [facility] Hep B, Adol or Pedi Dosage 2000-03-05 00:00:00 Completed [facility] Polio (IPV/OPV) 2000-03-05 00:00:00 Completed [facility] DTAP 2000-03-05 00:00:00 Completed [facility] HIB 3 Dose Schedule 2000-03-05 00:00:00 Completed [facility] Hep B, Adol or Pedi Dosage 2000-03-05 00:00:00 Completed [facility] Polio (IPV/OPV) 2000-03-05 00:00:00 Completed [facility] DTAP 2000-03-05 00:00:00 Completed [facility] HIB 3 Dose Schedule 2000-03-05 00:00:00 Completed [facility] Hep B, Adol or Pedi Dosage 2000-03-05 00:00:00 Completed [facility] Polio (IPV/OPV) 2000-03-05 00:00:00 Completed [facility] DTAP 2000-03-05 00:00:00 Completed [facility] HIB 3 Dose Schedule 2000-03-05 00:00:00 Completed [facility] Hep B, Adol or Pedi Dosage 2000-03-05 00:00:00 Completed [facility] Polio (IPV/OPV) 2000-03-05 00:00:00 Completed [facility] DTAP 2000-03-05 00:00:00 Completed [facility] HIB 3 Dose Schedule 2000-03-05 00:00:00 Completed [facility] Hep B, Adol or Pedi Dosage 2000-03-05 00:00:00 Completed [facility] Polio (IPV/OPV) 2000-03-05 00:00:00 Completed [facility] DTAP 2000-03-05 00:00:00 Completed [facility] HIB 3 Dose Schedule 2000-03-05 00:00:00 Completed [facility] Hep B, Adol or Pedi Dosage 2000-03-05 00:00:00 Completed [facility] Polio (IPV/OPV) 2000-03-05 00:00:00 Completed [facility] DTAP 2000-03-05 00:00:00 Completed [facility] HIB 3 Dose Schedule 2000-03-05 00:00:00 Completed [facility] Hep B, Adol or Pedi Dosage 2000-03-05 00:00:00 Completed [facility] Polio (IPV/OPV) 2000-03-05 00:00:00 Completed [facility] DTAP 2000-03-05 00:00:00 Completed [facility] HIB 3 Dose Schedule 2000-03-05 00:00:00 Completed [facility] Hep B, Adol or Pedi Dosage 2000-03-05 00:00:00 Completed [facility] Polio (IPV/OPV) 2000-03-05 00:00:00 Completed [facility] DTAP 2000-03-05 00:00:00 Completed [facility] HIB 3 Dose Schedule 2000-03-05 00:00:00 Completed [facility] Hep B, Adol or Pedi Dosage 2000-03-05 00:00:00 Completed [facility] Polio (IPV/OPV) 2000-03-05 00:00:00 Completed [facility] DTAP 2000-03-05 00:00:00 Completed [facility] HIB 3 Dose Schedule 2000-03-05 00:00:00 Completed [facility] Hep B, Adol or Pedi Dosage 2000-03-05 00:00:00 Completed [facility] Polio (IPV/OPV) 2000-03-05 00:00:00 Completed [facility] DTAP 2000-03-05 00:00:00 Completed [facility] HIB 3 Dose Schedule 2000-03-05 00:00:00 Completed [facility] Hep B, Adol or Pedi Dosage 2000-03-05 00:00:00 Completed [facility] Polio (IPV/OPV) 2000-03-05 00:00:00 Completed [facility] DTAP 2000-03-05 00:00:00 Completed [facility] HIB 3 Dose Schedule 2000-03-05 00:00:00 Completed [facility] Hep B, Adol or Pedi Dosage 2000-03-05 00:00:00 Completed [facility] Polio (IPV/OPV) 2000-03-05 00:00:00 Completed [facility] DTAP 2000-03-05 00:00:00 Completed [facility] HIB 3 Dose Schedule 2000-03-05 00:00:00 Completed [facility] Hep B, Adol or Pedi Dosage 2000-03-05 00:00:00 Completed [facility] Polio (IPV/OPV) 2000-03-05 00:00:00 Completed [facility] DTAP 2000-03-05 00:00:00 Completed [facility] HIB 3 Dose Schedule 2000-03-05 00:00:00 Completed [facility] DTAP 1999 00:00:00 Completed [facility] HIB 3 Dose Schedule 1999 00:00:00 Completed [facility] Hep B, Adol or Pedi Dosage 1999 00:00:00 Completed [facility] Polio (IPV/OPV) 1999 00:00:00 Completed [facility] DTAP 1999 00:00:00 Completed [facility] HIB 3 Dose Schedule 1999 00:00:00 Completed [facility] Hep B, Adol or Pedi Dosage 1999 00:00:00 Completed [facility] Polio (IPV/OPV) 1999 00:00:00 Completed [facility] DTAP 1999 00:00:00 Completed [facility] HIB 3 Dose Schedule 1999 00:00:00 Completed [facility] Hep B, Adol or Pedi Dosage 1999 00:00:00 Completed [facility] Polio (IPV/OPV) 1999 00:00:00 Completed [facility] DTAP 1999 00:00:00 Completed [facility] HIB 3 Dose Schedule 1999 00:00:00 Completed [facility] Hep B, Adol or Pedi Dosage 1999 00:00:00 Completed [facility] Polio (IPV/OPV) 1999 00:00:00 Completed [facility] DTAP 1999 00:00:00 Completed [facility] HIB 3 Dose Schedule 1999 00:00:00 Completed [facility] Hep B, Adol or Pedi Dosage 1999 00:00:00 Completed [facility] Polio (IPV/OPV) 1999 00:00:00 Completed [facility] DTAP 1999 00:00:00 Completed [facility] HIB 3 Dose Schedule 1999 00:00:00 Completed [facility] Hep B, Adol or Pedi Dosage 1999 00:00:00 Completed [facility] Polio (IPV/OPV) 1999 00:00:00 Completed [facility] DTAP 1999 00:00:00 Completed [facility] HIB 3 Dose Schedule 1999 00:00:00 Completed [facility] Hep B, Adol or Pedi Dosage 1999 00:00:00 Completed [facility] Polio (IPV/OPV) 1999 00:00:00 Completed [facility] DTAP 1999 00:00:00 Completed [facility] HIB 3 Dose Schedule 1999 00:00:00 Completed [facility] Hep B, Adol or Pedi Dosage 1999 00:00:00 Completed [facility] Polio (IPV/OPV) 1999 00:00:00 Completed [facility] DTAP 1999 00:00:00 Completed [facility] HIB 3 Dose Schedule 1999 00:00:00 Completed [facility] Hep B, Adol or Pedi Dosage 1999 00:00:00 Completed [facility] Polio (IPV/OPV) 1999 00:00:00 Completed [facility] DTAP 1999 00:00:00 Completed [facility] HIB 3 Dose Schedule 1999 00:00:00 Completed [facility] Hep B, Adol or Pedi Dosage 1999 00:00:00 Completed [facility] Polio (IPV/OPV) 1999 00:00:00 Completed [facility] DTAP 1999 00:00:00 Completed [facility] HIB 3 Dose Schedule 1999 00:00:00 Completed [facility] Hep B, Adol or Pedi Dosage 1999 00:00:00 Completed [facility] Polio (IPV/OPV) 1999 00:00:00 Completed [facility] DTAP 1999 00:00:00 Completed [facility] HIB 3 Dose Schedule 1999 00:00:00 Completed [facility] Hep B, Adol or Pedi Dosage 1999 00:00:00 Completed [facility] Polio (IPV/OPV) 1999 00:00:00 Completed [facility] DTAP 1999 00:00:00 Completed [facility] HIB 3 Dose Schedule 1999 00:00:00 Completed [facility] Hep B, Adol or Pedi Dosage 1999 00:00:00 Completed [facility] Polio (IPV/OPV) 1999 00:00:00 Completed [facility] DTAP 1999 00:00:00 Completed [facility] HIB 3 Dose Schedule 1999 00:00:00 Completed [facility] Hep B, Adol or Pedi Dosage 1999 00:00:00 Completed [facility] Polio (IPV/OPV) 1999 00:00:00 Completed [facility] DTAP 1999 00:00:00 Completed [facility] HIB 3 Dose Schedule 1999 00:00:00 Completed [facility] Hep B, Adol or Pedi Dosage 1999 00:00:00 Completed [facility] Polio (IPV/OPV) 1999 00:00:00 Completed [facility] DTAP 1999 00:00:00 Completed [facility] HIB 3 Dose Schedule 1999 00:00:00 Completed [facility] Hep B, Adol or Pedi Dosage 1999 00:00:00 Completed [facility] Polio (IPV/OPV) 1999 00:00:00 Completed [facility] DTAP 1999 00:00:00 Completed [facility] HIB 3 Dose Schedule 1999 00:00:00 Completed [facility] Hep B, Adol or Pedi Dosage 1999 00:00:00 Completed [facility] Polio (IPV/OPV) 1999 00:00:00 Completed [facility] DTAP 1999 00:00:00 Completed [facility] HIB 3 Dose Schedule 1999 00:00:00 Completed [facility] Hep B, Adol or Pedi Dosage 1999 00:00:00 Completed [facility] Polio (IPV/OPV) 1999 00:00:00 Completed [facility] DTAP 1999 00:00:00 Completed [facility] HIB 3 Dose Schedule 1999 00:00:00 Completed [facility] Hep B, Adol or Pedi Dosage 1999 00:00:00 Completed [facility] Polio (IPV/OPV) 1999 00:00:00 Completed [facility] DTAP 1999 00:00:00 Completed [facility] HIB 3 Dose Schedule 1999 00:00:00 Completed [facility] Hep B, Adol or Pedi Dosage 1999 00:00:00 Completed [facility] Polio (IPV/OPV) 1999 00:00:00 Completed [facility] DTAP 1999 00:00:00 Completed [facility] HIB 3 Dose Schedule 1999 00:00:00 Completed [facility] Hep B, Adol or Pedi Dosage 1999 00:00:00 Completed [facility] Polio (IPV/OPV) 1999 00:00:00 Completed [facility] DTAP 1999 00:00:00 Completed [facility] HIB 3 Dose Schedule 1999 00:00:00 Completed [facility] Hep B, Adol or Pedi Dosage 1999 00:00:00 Completed [facility] Polio (IPV/OPV) 1999 00:00:00 Completed [facility] DTAP 1999 00:00:00 Completed [facility] HIB 3 Dose Schedule 1999 00:00:00 Completed [facility] Hep B, Adol or Pedi Dosage 1999 00:00:00 Completed [facility] Polio (IPV/OPV) 1999 00:00:00 Completed [facility] DTAP 1999 00:00:00 Completed [facility] HIB 3 Dose Schedule 1999 00:00:00 Completed [facility] Hep B, Adol or Pedi Dosage 1999 00:00:00 Completed [facility] Polio (IPV/OPV) 1999 00:00:00 Completed [facility] DTAP 1999 00:00:00 Completed [facility] HIB 3 Dose Schedule 1999 00:00:00 Completed [facility] Hep B, Adol or Pedi Dosage 1999 00:00:00 Completed [facility] Polio (IPV/OPV) 1999 00:00:00 Completed [facility] DTAP 1999 00:00:00 Completed [facility] HIB 3 Dose Schedule 1999 00:00:00 Completed [facility] Hep B, Adol or Pedi Dosage 1999 00:00:00 Completed [facility] Polio (IPV/OPV) 1999 00:00:00 Completed [facility] DTAP 1999 00:00:00 Completed [facility] HIB 3 Dose Schedule 1999 00:00:00 Completed [facility] Hep B, Adol or Pedi Dosage 1999 00:00:00 Completed [facility] Polio (IPV/OPV) 1999 00:00:00 Completed [facility] HPV9 Unknown Completed [facility] HPV Unknown Completed [facility] DTAP Unknown Completed [facility] DTAP Unknown Completed [facility] DTAP Unknown Completed [facility] DTAP Unknown Completed [facility] HIB 3 Dose Schedule Unknown Completed [facility] HIB 3 Dose Schedule Unknown Completed [facility] HIB 3 Dose Schedule Unknown Completed [facility] HEPATITIS A Unknown Completed [facility] Hep B, Adol or Pedi Dosage Unknown Completed [facility] Hep B, Adol or Pedi Dosage Unknown Completed [facility] Hep B, Adol or Pedi Dosage Unknown Completed [facility] Meningococcal Vaccine Unknown Completed [facility] Meningococcal Vaccine Unknown Completed [facility] MMR Unknown Completed [facility] MMR Unknown Completed [facility] Pneumococcal 13 Conjugate, PCV13 (Prevnar 13) Unknown Completed [facility] Polio (IPV/OPV) Unknown Completed [facility] Polio (IPV/OPV) Unknown Completed [facility] Polio (IPV/OPV) Unknown Completed [facility] Polio (IPV/OPV) Unknown Completed [facility] TDAP Unknown Completed [facility] Varicella (varivax)(chicken pox) Unknown Completed [facility] Varicella (varivax)(chicken pox) Unknown Completed [facility] HPV9 Unknown Completed [facility] HPV Unknown Completed [facility] DTAP Unknown Completed [facility] DTAP Unknown Completed [facility] DTAP Unknown Completed [facility] DTAP Unknown Completed [facility] HIB 3 Dose Schedule Unknown Completed [facility] HIB 3 Dose Schedule Unknown Completed [facility] HIB 3 Dose Schedule Unknown Completed [facility] HEPATITIS A Unknown Completed [facility] Hep B, Adol or Pedi Dosage Unknown Completed [facility] Hep B, Adol or Pedi Dosage Unknown Completed [facility] Hep B, Adol or Pedi Dosage Unknown Completed [facility] Meningococcal Vaccine Unknown Completed [facility] Meningococcal Vaccine Unknown Completed [facility] MMR Unknown Completed [facility] MMR Unknown Completed [facility] Pneumococcal 13 Conjugate, PCV13 (Prevnar 13) Unknown Completed [facility] Polio (IPV/OPV) Unknown Completed [facility] Polio (IPV/OPV) Unknown Completed [facility] Polio (IPV/OPV) Unknown Completed [facility] Polio (IPV/OPV) Unknown Completed [facility] TDAP Unknown Completed [facility] Varicella (varivax)(chicken pox) Unknown Completed [facility] Varicella (varivax)(chicken pox) Unknown Completed [facility] HPV9 Unknown Completed [facility] HPV Unknown Completed [facility] DTAP Unknown Completed [facility] DTAP Unknown Completed [facility] DTAP Unknown Completed [facility] DTAP Unknown Completed [facility] HIB 3 Dose Schedule Unknown Completed [facility] HIB 3 Dose Schedule Unknown Completed [facility] HIB 3 Dose Schedule Unknown Completed [facility] HEPATITIS A Unknown Completed [facility] Hep B, Adol or Pedi Dosage Unknown Completed [facility] Hep B, Adol or Pedi Dosage Unknown Completed [facility] Hep B, Adol or Pedi Dosage Unknown Completed [facility] Meningococcal Vaccine Unknown Completed [facility] Meningococcal Vaccine Unknown Completed [facility] MMR Unknown Completed [facility] MMR Unknown Completed [facility] Pneumococcal 13 Conjugate, PCV13 (Prevnar 13) Unknown Completed [facility] Polio (IPV/OPV) Unknown Completed [facility] Polio (IPV/OPV) Unknown Completed [facility] Polio (IPV/OPV) Unknown Completed [facility] Polio (IPV/OPV) Unknown Completed [facility] TDAP Unknown Completed [facility] Varicella (varivax)(chicken pox) Unknown Completed [facility] Varicella (varivax)(chicken pox) Unknown Completed [facility] HPV9 Unknown Completed [facility] HPV Unknown Completed [facility] DTAP Unknown Completed [facility] DTAP Unknown Completed [facility] DTAP Unknown Completed [facility] DTAP Unknown Completed [facility] HIB 3 Dose Schedule Unknown Completed [facility] HIB 3 Dose Schedule Unknown Completed [facility] HIB 3 Dose Schedule Unknown Completed [facility] HEPATITIS A Unknown Completed [facility] Hep B, Adol or Pedi Dosage Unknown Completed [facility] Hep B, Adol or Pedi Dosage Unknown Completed [facility] Hep B, Adol or Pedi Dosage Unknown Completed [facility] Meningococcal Vaccine Unknown Completed [facility] Meningococcal Vaccine Unknown Completed [facility] MMR Unknown Completed [facility] MMR Unknown Completed [facility] Pneumococcal 13 Conjugate, PCV13 (Prevnar 13) Unknown Completed [facility] Polio (IPV/OPV) Unknown Completed [facility] Polio (IPV/OPV) Unknown Completed [facility] Polio (IPV/OPV) Unknown Completed [facility] Polio (IPV/OPV) Unknown Completed [facility] TDAP Unknown Completed [facility] Varicella (varivax)(chicken pox) Unknown Completed [facility] Varicella (varivax)(chicken pox) Unknown Completed [facility] HPV9 Unknown Completed [facility] HPV Unknown Completed [facility] DTAP Unknown Completed [facility] DTAP Unknown Completed [facility] DTAP Unknown Completed [facility] DTAP Unknown Completed [facility] HIB 3 Dose Schedule Unknown Completed [facility] HIB 3 Dose Schedule Unknown Completed [facility] HIB 3 Dose Schedule Unknown Completed [facility] HEPATITIS A Unknown Completed [facility] Hep B, Adol or Pedi Dosage Unknown Completed [facility] Hep B, Adol or Pedi Dosage Unknown Completed [facility] Hep B, Adol or Pedi Dosage Unknown Completed [facility] Meningococcal Vaccine Unknown Completed [facility] Meningococcal Vaccine Unknown Completed [facility] MMR Unknown Completed [facility] MMR Unknown Completed [facility] Pneumococcal 13 Conjugate, PCV13 (Prevnar 13) Unknown Completed [facility] Polio (IPV/OPV) Unknown Completed [facility] Polio (IPV/OPV) Unknown Completed [facility] Polio (IPV/OPV) Unknown Completed [facility] Polio (IPV/OPV) Unknown Completed [facility] TDAP Unknown Completed [facility] Varicella (varivax)(chicken pox) Unknown Completed [facility] Varicella (varivax)(chicken pox) Unknown Completed [facility] Vital Signs Vital Name Observation Time Observation Value Comments S ource Systolic blood pressure 2023-01-21 04:29:00 144 mm[Hg] [facility] Diastolic blood pressure 2023-01-21 04:29:00 98 mm[Hg] [facility] Heart rate 2023-01-21 04:29:00 90 /min [facility] Body temperature 2023-01-21 04:29:00 37 Radha [facility] Respiratory rate 2023-01-21 04:29:00 18 /min [facility] Body height 2023-01-21 04:29:00 162.6 cm [facility] Body weight 2023-01-21 04:29:00 96.026 kg [facility] BMI 2023-01-21 04:29:00 36.34 kg/m2 [facility] Oxygen saturation in Arterial blood by Pulse oximetry 2023-01-21 04:29:00 100 /min [facility] Oxygen saturation in Arterial blood by Pulse oximetry 2022-11-27 03:20:00 100 /min [facility] Systolic blood pressure 2022-11-27 03:20:00 139 mm[Hg] [facility] Diastolic blood pressure 2022-11-27 03:20:00 92 mm[Hg] [facility] Heart rate 2022-11-27 03:20:00 80 /min Unive [facility] Body temperature 2022-11-27 03:20:00 36.28 Radha [facility] Respiratory rate 2022-11-27 03:20:00 15 /min [facility] Body height 2022-11-27 03:20:00 162.6 cm [facility] Body weight 2022-11-27 03:20:00 96.163 kg [facility] BMI 2022-11-27 03:20:00 36.39 kg/m2 [facility] Heart rate 2022-07-02 16:04:00 87 /min Unive [facility] Body temperature 2022-07-02 16:04:00 36.89 Radha [facility] Respiratory rate 2022-07-02 16:04:00 22 /min [facility] Body height 2022-07-02 16:04:00 165.1 cm [facility] Body weight 2022-07-02 16:04:00 101.833 kg [facility] BMI 2022-07-02 16:04:00 37.36 kg/m2 [facility] Oxygen saturation in Arterial blood by Pulse oximetry 2022-07-02 16:04:00 99 /min [facility] Systolic blood pressure 2021-09-13 07:00:00 121 mm[Hg] [facility] Diastolic blood pressure 2021-09-13 07:00:00 84 mm[Hg] [facility] Heart rate 2021-09-13 07:00:00 98 /min Unive [facility] Respiratory rate 2021-09-13 07:00:00 20 /min [facility] Oxygen saturation in Arterial blood by Pulse oximetry 2021-09-13 07:00:00 98 /min [facility] Body temperature 2021-09-13 05:34:00 37.61 Radha [facility] Body height 2021-09-13 05:34:00 162.6 cm [facility] Body weight 2021-09-13 05:34:00 111.131 kg [facility] BMI 2021-09-13 05:34:00 42.05 kg/m2 [facility] Systolic blood pressure 2020-12-31 20:48:00 127 mm[Hg] [facility] Diastolic blood pressure 2020-12-31 20:48:00 96 mm[Hg] [facility] Heart rate 2020-12-31 20:48:00 83 /min Unive [facility] Body temperature 2020-12-31 20:48:00 36.83 Radha [facility] Respiratory rate 2020-12-31 20:48:00 18 /min [facility] Body weight 2020-12-31 20:48:00 110.678 kg [facility] BMI 2020-12-31 20:48:00 41.88 kg/m2 [facility] Oxygen saturation in Arterial blood by Pulse oximetry 2020-12-31 20:48:00 100 /min [facility] Systolic blood pressure 2020-11-07 14:46:00 126 mm[Hg] [facility] Diastolic blood pressure 2020-11-07 14:46:00 76 mm[Hg] [facility] Heart rate 2020-11-07 14:46:00 92 /min [facility] Body temperature 2020-11-07 14:46:00 37 Radha [facility] Respiratory rate 2020-11-07 14:46:00 24 /min [facility] Body height 2020-11-07 14:46:00 162.6 cm [facility] Body weight 2020-11-07 14:46:00 113.581 kg [facility] BMI 2020-11-07 14:46:00 42.98 kg/m2 [facility] Systolic blood pressure 2020-10-17 18:10:00 119 mm[Hg] [facility] Diastolic blood pressure 2020-10-17 18:10:00 72 mm[Hg] [facility] Heart rate 2020-10-17 18:10:00 99 /min [facility] Body temperature 2020-10-17 18:10:00 36.89 Radha [facility] Respiratory rate 2020-10-17 18:10:00 16 /min [facility] Body height 2020-10-17 18:10:00 162.6 cm [facility] Body weight 2020-10-17 18:10:00 117.113 kg [facility] BMI 2020-10-17 18:10:00 44.32 kg/m2 [facility] Systolic blood pressure 2020-08-09 06:00:00 136 mm[Hg] [facility] Diastolic blood pressure 2020-08-09 06:00:00 75 mm[Hg] [facility] Heart rate 2020-08-09 06:00:00 93 /min [facility] Respiratory rate 2020-08-09 06:00:00 18 /min [facility] Oxygen saturation in Arterial blood by Pulse oximetry 2020-08-09 06:00:00 92 /min [facility] Body temperature 2020-08-09 05:00:00 37.44 Radha [facility] Body height 2020-08-09 05:00:00 162.6 cm [facility] Body weight 2020-08-09 05:00:00 114.306 kg [facility] BMI 2020-08-09 05:00:00 43.26 kg/m2 [facility] Systolic blood pressure 2020-01-08 07:00:00 137 mm[Hg] [facility] Diastolic blood pressure 2020-01-08 07:00:00 82 mm[Hg] [facility] Heart rate 2020-01-08 07:00:00 80 /min [facility] Body temperature 2020-01-08 07:00:00 36.89 Radha [facility] Respiratory rate 2020-01-08 07:00:00 11 /min [facility] Oxygen saturation in Arterial blood by Pulse oximetry 2020-01-08 07:00:00 95 /min [facility] Body weight 2020-01-08 05:39:00 108.863 kg [facility] Systolic blood pressure 2020-01-08 07:00:00 137 mm[Hg] [place] [facility] Diastolic blood pressure 2020-01-08 07:00:00 82 mm[Hg] [place] [facility] Heart rate 2020-01-08 07:00:00 80 /min L[facility] Body temperature 2020-01-08 07:00:00 36.89 Radha [facility] Respiratory rate 2020-01-08 07:00:00 11 /min [facility] Oxygen saturation in Arterial blood by Pulse oximetry 2020-01-08 07:00:00 95 /min [place] [facility] Body weight 2020-01-08 05:39:00 108.863 kg [facility] Procedures Procedure Date / Time Performed Performing Clinicia n Source URINALYSIS 2023-01-21 06:04:00 Corey Ledezma [facility] POCT TEST 2023-01-21 06:04:00 Corey Ledezma [facility] CONSENT/REFUSAL FOR DIAGNOSIS AND TREATMENT 2023-01-21 04:16:58 Doctor Unassigned, [place] [facility] POCT TEST 2022-11-27 05:32:00 Bret Herndon [facility] URINALYSIS 2022-11-27 05:31:00 [facility] LACTIC ACID WHOLE BLOOD 2022-11-27 05:17:00 Alvaro Herndon [facility] LIPASE 2022-11-27 05:16:00 [facility] TEST, SERUM 2022-11-27 05:16:00 Travis Herndon [facility] COMP. METABOLIC PANEL (47579) 2022-11-27 05:16:00 Alvaro Herndon [facility] CBC WITH DIFF 2022-11-27 05:16:00 Alvaro Herndon [facility] ASSIGNMENT OF BENEFITS 2022-11-27 04:54:06 Docto r Unassigned, [place] [facility] CONSENT/REFUSAL FOR DIAGNOSIS AND TREATMENT 2022-11-27 03:16:23 Doctor Unassigned, [place] [facility] XR SPINE THORACIC 2 VW 2022-07-02 18:53:16 Demi Allan [facility] XR ELBOW >3 VW LEFT 2022-07-02 18:53:16 Prakash Allan [facility] CONSENT/REFUSAL FOR DIAGNOSIS AND TREATMENT 2022-07-02 15:56:23 Doctor Unassigned, [place] [facility] CONSENT/REFUSAL FOR DIAGNOSIS AND TREATMENT 2021-09-13 05:29:08 Doctor Unassigned, [place] [facility] NOTICE OF PRIVACY PRACTICES 2021-09-13 05:28:35 Doctor Unassigned, [place] [facility] POCT TEST 2020-12-31 21:04:00 Bret Herndon [facility] URINALYSIS 2020-12-31 20:58:00 Alvaro Herndon [facility] CONSENT/REFUSAL FOR DIAGNOSIS AND TREATMENT 2020-12-31 20:17:00 Doctor Unassigned, [place] [facility] POCT TEST 2020-10-17 19:59:00 Sea Briseno [facility] GARDASIL 9 (HPV 9V) VACCINE 2020-10-17 19:16:48 Felipa Briseno [facility] CONSENT/REFUSAL FOR DIAGNOSIS AND TREATMENT 2020-10-17 17:25:15 Doctor Unassigned, [place] [facility] ASSIGNMENT OF BENEFITS 2020-10-17 17:24:54 Docto r Unassigned, [place] [facility] BASIC METABOLIC PANEL (NA, K, CL, CO2, GLUCOSE, BUN, CREATININE, CA) 2020-08-09 05:20:00 Morena Benton [facility] CBC WITH DIFF 2020-08-09 05:20:00 [facility] 2020-08-09 05:05:00 Janet Benton ra [facility] URINALYSIS 2020-08-09 05:03:00 [facility] NOTICE OF PRIVACY PRACTICES 2020-08-09 04:47:00 Doctor Unassigned, [place] [facility] CONSENT/REFUSAL FOR DIAGNOSIS AND TREATMENT 2020-08-09 04:46:34 Doctor Unassigned, [place] [facility] XR CHEST 1 VW 2020-01-08 06:19:33 El Hussein [facility] LIPASE 2020-01-08 06:14:00 El Hussein [facility] TROPONIN I 2020-01-08 06:14:00 El Hussein [facility] HEPATIC FUNCTION PANEL (80134) (ALB,T.PRO,BILI T,BU/BC,ALT,AST,ALK PHOS) 2020-01-08 06:14:00 El Hussein [facility] BASIC METABOLIC PANEL (NA, K, CL, CO2, GLUCOSE, BUN, CREATININE, CA) 2020-01-08 06:14:00 El Hussein [facility] CBC WITH DIFF 2020-01-08 06:14:00 El Hussein [facility] URINALYSIS 2020-01-08 06:14:00 El Hussein [facility] POCT TEST 2020-01-08 06:13:00 El Hussein [facility] EKG-12 LEAD 2020-01-08 05:54:25 El Hussein [facility] Encounters Start Date/Time End Date/Time Encounter Type Admission Type Attending [facility] Care Facility Care Department Encounter ID Source 2021-04-02 12:16:[address] [facility] [id number] [facility] 2023-01-20 23:32:00 2023-01-21 02:45:00 Emergency X Corey LEDEZMA [facility] ERT [id number] [facility] 2023-01-20 23:32:00 2023-01-21 02:45:00 Emergency Corey Ledezma [facility] ..840.114 350.1.13.10 4.2.7.2.686 [id number] [facility] 2023-01-21 00:00:00 2023-01-21 00:00:00 Patient Secure Msg Doctor Unassigned, [place] [facility] 1.2.840.114 350.1.13.10 4.2.7.2.686 [id number] [facility] 2023-01-01 00:00:00 2023-01-01 00:00:00 Letter (Out) Clinic[facility] 1.2.840.114 350.1.13.10 4.2.7.2.686 [id number] [facility] 2022-12-30 00:00:00 2022-12-30 00:00:00 Patient Secure Msg Doctor Unassigned, [place] [facility] 1.2840.114 350.1.13.10 4.2.7.2.686 [id number] [facility] 2022-11-26 22:37:00 2022-11-27 02:15:00 Emergency X ALVARO HERNDON [facility] ERT [id number] [facility] 2022-11-26 22:37:00 2022-11-27 02:15:00 Emergency Alvaro Herndon [facility] 1.2.840.114 350.1.13.10 4.2.7.2.686 [id number] [facility] 2022-11-26 00:00:00 2022-11-26 00:00:00 Orders Only Doctor Unassigned, [place] [facility] 1.2.840.114 350.1.13.10 4.2.7.2.686 [id number] [facility] 2022-10-16 14:28:32 2022-10-16 14:28:32 Outpatient [facility] [id number] Eulogio Alcantar 2022-07-02 10:07:00 2022-07-02 14:07:00 Emergency X PRAKASH ALLAN [facility] ERT [id number] [facility] 2022-07-02 10:07:00 2022-07-02 14:07:00 Emergency Prakash Allan [facility] 1.2.840.114 350.1.13.10 4.2.7.2.686 [id number] [facility] 2022-07-02 00:00:00 2022-07-02 00:00:00 Orders Only Doctor Unassigned, [place] [facility] 1.2.840.114 350.1.13.10 4.2.7.2.686 [id number] [facility] 2021-09-13 00:42:00 2021-09-13 02:04:00 Emergency X ALLANPRAKASH [facility] ERT [id number] [facility] 2021-09-13 00:42:00 2021-09-13 02:04:00 Emergency Prakash Allan [facility] 1.2.840.114 350.1.13.10 4.2.7.2.686 [id number] [facility] 2021-03-02 00:00:00 2021-03-02 00:00:00 Telephone Felipa Briseno [facility] UPHOLSTERY DEPARTMENT SUPERVISOR [facility] 1.2840.114 350.1.13.10 4.2.7.2.686 [id number] [facility] 2021-02-19 08:15:00 2021-02-19 08:15:00 Outpatient FELIPA TOM [facility] [id number] [facility] 2021-02-06 10:30:00 2021-02-06 10:30:00 Outpatient FELIPA TOM [facility] [id number] [facility] 2020-12-31 16:05:00 2020-12-31 18:56:00 Emergency Annabella Samayoa [facility] 1.2.840.114 350.1.13.10 4.2.7.2.686 [id number] [facility] 2020-12-25 00:00:00 2020-12-25 00:00:00 Telephone Felipa Briseno [facility] UPHOLSTERY DEPARTMENT SUPERVISOR [facility] 1.2.840.114 350.1.13.10 4.2.7.2.686 [id number] [facility] 2020-12-24 00:00:00 2020-12-24 00:00:00 Nurse Triage [facility] 1.2840.114 350.1.13.10 4.2.7.2.686 [id number] [facility] 2020-11-13 00:00:00 2020-11-13 00:00:00 Patient Secure Msg Felipa Briseno [facility] UPHOLSTERY DEPARTMENT SUPERVISOR [facility] CHILD [facility] 1.2840.114 350.1.13.10 4.2.7.2.686 [id number] [facility] 2020-11-07 09:33:35 2020-11-07 11:41:19 Office Visit Felipa Briseno NYRENÉ UPHOLSTERY DEPARTMENT SUPERVISOR [facility] CHILD [facility] 1.2.840.114 350.1.13.10 4.2.7.2.686 [id number] [facility] 2020-11-07 09:30:00 2020-11-07 09:30:00 Outpatient R FELIPA BRISENO [facility] [id number] [facility] 2020-11-03 00:00:00 2020-11-03 00:00:00 Telephone Felipa Briseno [facility] UPHOLSTERY DEPARTMENT SUPERVISOR [facility] CHILD [facility] 1.2.840.114 350.1.13.10 4.2.7.2.686 [id number] [facility] 2020-11-02 00:00:00 2020-11-02 00:00:00 Telephone Felipa Briseno [facility] UPHOLSTERY DEPARTMENT SUPERVISOR [facility] 1.2840.114 350.1.13.10 4.2.7.2.686 [id number] [facility] 2020-11-01 00:00:00 2020-11-01 00:00:00 Patient Secure Msg SukhFelipa rosado [facility] UPHOLSTERY DEPARTMENT SUPERVISOR [facility] 1.2840.114 350.1.13.10 4.2.7.2.686 [id number] [facility] 2020-11-01 00:00:00 2020-11-01 00:00:00 Refill Felipa Briseno [facility] UPHOLSTERY DEPARTMENT SUPERVISOR [facility] CHILD [facility] 1.840.114 350.1.13.10 4.2.7.2.686 [id number] [facility] 2020-11-01 00:00:00 2020-11-01 00:00:00 Letter (Out) Jake Jonas [facility] .840.114 350.1.13.10 4.2.7.2.686 [id number] [facility] 2020-10-27 15:30:00 2020-10-27 15:30:00 Outpatient R [facility] [id number] [facility] 2020-10-23 00:00:00 2020-10-23 00:00:00 Patient Secure Msg SukhFelipa rosado [facility] UPHOLSTERY DEPARTMENT SUPERVISOR [facility] 1.2840.114 350.1.13.10 4.2.7.2.686 [id number] [facility] 2020-10-19 00:00:00 2020-10-19 00:00:00 Telephone Felipa Briseno [facility] UPHOLSTERY DEPARTMENT SUPERVISOR [facility] 1.2.840.114 350.1.13.10 4.2.7.2.686 [id number] [facility] 2020-10-17 12:46:36 2020-10-17 14:56:59 Office Visit Felipa Briseno [facility] UPHOLSTERY DEPARTMENT SUPERVISOR [facility]ER[facility] 1.2840.114 350.1.13.10 4.2.7.2.686 [id number] [facility] 2020-10-17 13:00:00 2020-10-17 13:00:00 Outpatient R FELIPA BRISENO [facility] [id number] [facility] 2020-10-17 00:00:00 2020-10-17 00:00:00 Orders Only Doctor Unassigned, [place] [facility] 1.840.114 350.1.13.10 4.2.7.2.686 [id number] [facility] 2020-08-08 22:53:00 2020-08-09 01:02:00 Emergency Morena Benton [facility] 1.0.114 350.1.13.10 4.2.7.2.686 [id number] [facility] 2020-08-08 22:53:00 2020-08-08 22:53:00 Emergency X MORENA BENTON [facility] ERT [id number] [facility] 2020-08-08 00:00:00 2020-08-08 00:00:00 Orders Only Doctor Unassigned, [place] [facility] 1.20.114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
[2023-08-31] MEDS ORDERED: IBUPROFEN 400 MG TAB ONE (20:50)
--- NOTE | 2023-08-31 21:40 | RAD REPORT ---
EXAM DESCRIPTION: RAD - Knee Left 3 View - 08/31/2023 9:29 pm CLINICAL HISTORY: PAIN COMPARISON: No comparisons FINDINGS/IMPRESSION: No acute fracture. No malalignment. No significant focal degenerative changes.
--- NOTE | 2023-08-31 22:27 | EDPHYS ---
Physician Documentation [facility] Name: Gisele Tilley Age: 23 yrs Sex: Female : 2000 Arrival Date: 08/31/2023 Time: 20:13 Bed 4 Private MD: ED Physician Bossman Mckeon HPI: 08/30 21:00 This 23 yrs old Female presents to ER via Wheelchair with complaints of Leg cp Injury. 21:00 The patient presents with an injury, pain, that is acute. The complaints affect the cp left knee. Context: resulted from the patient falling, while dancing, the patient can partially bear weight, the patient is able to ambulate, with moderate difficulty, Problem is a result from a previous injury: No. Onset: The symptoms/episode began/occurred today. Associated signs and symptoms: Pertinent negatives calf tenderness, fever. Treatment prior to arrival includes: no previous treatment. 21:00 Modifying factors: the symptoms are aggravated by bending knee, straightening knee, cp weight bearing. 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 - Social history:: Smoking status: Reported history of juuling and/or vaping. ROS: 21:05 MS/extremity: Positive for pain, of the left knee, Negative for decreased range of cp motion, deformity, paresthesias, 21:05 Neck: Negative for pain with movement, pain at rest, cp 21:05 Back: Negative for pain at rest, pain with movement, 21:05 All other systems are negative, Exam: 21:10 Constitutional: The patient appears in no acute distress, alert, awake, non-toxic, well cp developed, well nourished, 21:10 Head/Face: Normocephalic, atraumatic. cp 21:10 Neck: ROM/movement: is normal, is supple, without pain, no range of motions limitations, 21:10 Chest/axilla: Inspection: normal, 21:10 Cardiovascular: Rate: normal, 21:10 Respiratory: the patient does not display signs of respiratory distress, Respirations: normal, no use of accessory muscles, no retractions, 21:10 Abdomen/GI: Exam negative for discomfort, distension, guarding, Inspection: abdomen appears normal, 21:10 Back: pain, is absent, ROM is normal, 21:10 Musculoskeletal/extremity: Extremities: grossly normal except: noted in the left knee: pain and tenderness to palpation posterior knee, ROM: limited passive range of motion due to pain, in the left knee, Vital Signs: 20:23 BP 120 / 73; Pulse 94; Resp 18 S; Temp 97.7(TE); Pulse Ox 98% on R/A; Weight 76.66 kg as6 (R); Height 5 ft. 4 in. (R); Pain 10/10; 20:54 BP 113 / 58; Pulse 90; Resp 17 S; Pulse Ox 99% on R/A; ha1 22:00 BP 102 / 72; Pulse 89; Resp 17 S; Pulse Ox 99% on R/A; ha1 20:23 Body Mass Index 29.01 (76.66 kg, 162.56 cm) as6 20:23 Pain Scale: Adult as6 MDM: 20:31 Patient medically screened. cp 21:00 Differential diagnosis: dislocation, closed fracture, contusion, sprain, ligament cp injury. 22:26 Data reviewed: vital signs, nurses notes, radiologic studies, plain films. 22:26 I considered the following discharge prescriptions or medication management in the emergency department Medications were administered in the Emergency Department. See MAR. Counseling: I had a detailed discussion with the patient and/or guardian regarding the historical points, exam findings, and any diagnostic results supporting the discharge/admit diagnosis, radiology results, the need for outpatient follow up, a orthopedic surgeon, to return to the emergency department if symptoms worsen or persist or if there are any questions or concerns that arise at home. Response to treatment: the patient's symptoms have mildly improved after treatment, and as a result, I will discharge patient. 08/30 20:46 Order name: XRAY Knee LEFT 3 view; Complete Time: 22:25 cp 08/30 22:25 Interpretation: Report reviewed. cp 08/30 22:25 Order name: Josue wrap-joint; Complete Time: 22:36 cp 08/30 22:25 Order name: Crutches; Complete Time: 22:36 cp Administered Medications: 20:53 Drug: Ibuprofen PO 800 mg PO once Route: PO; ha1 22:37 Follow up: Response: No adverse reaction cm10 22:36 Drug: Acetaminophen-Codeine PO (300 mg-30 mg) 2 tabs PO once; RASS on ADMIN: Combtv4, cm10 Very Agttd3, Agttd2, Rstlss1, AlertClm0, Drwsy-1, Lt Sdtn-2, Mod Sdtn-3, Dp Sdtn-4, UnArsble-5 Route: PO; 22:37 Follow up: Response: No adverse reaction cm10 Disposition Summary: 08/31/23 22:27 Discharge Ordered Notes: Location: Home cp Problem: new cp Symptoms: have improved cp Condition: Stable cp Diagnosis - Pain in left knee cp Followup: cp - With: Hugo Tuttle MD - When: 5 - 6 days - Reason: Recheck today's complaints Discharge Instructions: - Discharge Summary Sheet cp - How to Use a Knee Brace cp - Knee Sprain, Adult cp - RICE Therapy for Routine Care of Injuries cp - Acute Knee Pain, Adult cp - Form - Return To Work ty Forms: - Medication Reconciliation Form cp - Thank You Letter cp - Antibiotic Education cp - Prescription Opioid Use cp - Patient Portal Instructions cp - Leadership Thank You Letter cp - Work release form ty Prescriptions: - Ibuprofen 800 mg Oral Tablet - take 1 tablet ORAL route every 8 hours As needed take with food; 30 tablet; cp Refills: 0, Product Selection Permitted Signatures: Dispatcher [employer] Casey Andino PA PA cp Blue Saldana RN RN as6 Elizabeth Rivas RN RN ha1 Kathie Lombardi RN RN cm10 Corrections: (The following items were deleted from the chart) 22:28 22:27 Sprain of unspecified site of left knee, initial encounter cp cp 08/31 17:02 08/30 21:00 Onset: The symptoms/episode began/occurred last night, cp cp
--- NOTE | 2023-08-31 22:27 | ER ---
Nurse's Notes [facility] Name: Gisele Tilley Age: 23 yrs Sex: Female : 2000 Arrival Date: 08/31/2023 Time: 20:13 Bed 4 Private MD: Diagnosis: Pain in left knee Presentation: 08/30 20:25 Chief complaint: Patient states: pt hurt her left knee dancing. Coronavirus screen: At as6 this time, the client does not indicate any symptoms associated with coronavirus-19. Ebola Screen: No symptoms or risks identified at this time. Initial Sepsis Screen: Does the patient meet any 2 criteria? No. Patient's initial sepsis screen is negative. Does the patient have a suspected source of infection? No. Patient's initial sepsis screen is negative. Risk Assessment: Do you want to hurt yourself or someone else? Patient reports no desire to harm self or others. Onset of symptoms was August 31, 2023. 20:25 Acuity: IRIS 4 as6 20:25 Method Of Arrival: Wheelchair as6 Triage Assessment: 22:01 General: Appears uncomfortable, Behavior is calm, cooperative. Pain: Complains of pain ha1 in lateral aspect of left knee. Injury Description: fall. 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 - Social history:: Smoking status: Reported history of juuling and/or vaping. Screenin:46 [facility] ED Fall Risk Assessment (Adult) History of falling in the last 3 months, ha1 including since admission Yes- single mechanical fall (1 pt) Confusion or Disorientation No (0 pts) Intoxicated or Sedated No (0 pts) Impaired Gait Yes (1 pt) Mobility Assist Device Used No (0 pt) Altered Elimination No (0 pt) Score/Fall Risk Level 3 or more points = High Risk Oriented to surroundings, Maintained a safe environment, Educated pt \T\ family on fall prevention, incl call for assistance when getting out of bed, Hourly rounding (assess needs \T\ fall precautionary measures) done. Abuse screen: Denies threats or abuse. Denies injuries from another. Nutritional screening: No deficits noted. Tuberculosis screening: No symptoms or risk factors identified. Assessment: 20:25 General: Appears uncomfortable, Behavior is calm, cooperative. Pain: Complains of pain ha1 in left knee Pain radiates to lateral aspect of left knee Pain currently is 9 out of 10 on a pain scale. Quality of pain is described as aching, throbbing, Pain began 1 day ago. Alleviated by medications, Aggravated by increased activity. Neuro: Level of Consciousness is awake, alert, obeys commands, Oriented to person, place, time, situation. Cardiovascular: Capillary refill < 3 seconds Patient's skin is warm and dry. Respiratory: Airway is patent Respiratory effort is even, unlabored, Respiratory pattern is regular, symmetrical. Musculoskeletal: Circulation, motion, and sensation intact. Range of motion: intact in all extremities, Reports pain in left knee. 21:30 Reassessment: Patient and/or family updated on plan of care and expected duration. Pain ha1 level reassessed. Patient is alert, oriented x 3, equal unlabored respirations, skin warm/dry/pink. pain 4/10 Patient states feeling better. Vital Signs: 20:23 BP 120 / 73; Pulse 94; Resp 18 S; Temp 97.7(TE); Pulse Ox 98% on R/A; Weight 76.66 kg as6 (R); Height 5 ft. 4 in. (R); Pain 10/10; 20:54 BP 113 / 58; Pulse 90; Resp 17 S; Pulse Ox 99% on R/A; ha1 22:00 BP 102 / 72; Pulse 89; Resp 17 S; Pulse Ox 99% on R/A; ha1 20:23 Body Mass Index 29.01 (76.66 kg, 162.56 cm) as6 20:23 Pain Scale: Adult as6 ED Course: 20:19 Patient arrived in ED. gm2 20:23 Casey Broussard PA is PHCP. cp 20:23 Bossman Mckeon MD is Attending Physician. cp 20:24 Arm band placed on. as6 20:25 Triage completed. as6 20:25 Patient has correct armband on for positive identification. Placed in gown. Bed in low ha1 position. Call light in reach. Side rails up X 1. 20:47 Door closed. Noise minimized. Lights dimmed. Warm blanket given. Pillow given. ha1 21:31 XRAY Knee LEFT 3 view In Process Unspecified. EDMS 22:02 Provided Education on: medication administration . ha1 22:26 Hugo Tuttle MD is Referral Physician. cp 22:36 Crutch training done. Josue wrap to left knee. cm10 22:38 No provider procedures requiring assistance completed. Patient did not have IV access cm10 during this emergency room visit. Administered Medications: 20:53 Drug: Ibuprofen PO 800 mg PO once Route: PO; ha1 22:37 Follow up: Response: No adverse reaction cm10 22:36 Drug: Acetaminophen-Codeine PO (300 mg-30 mg) 2 tabs PO once; RASS on ADMIN: Combtv4, cm10 Very Agttd3, Agttd2, Rstlss1, AlertClm0, Drwsy-1, Lt Sdtn-2, Mod Sdtn-3, Dp Sdtn-4, UnArsble-5 Route: PO; 22:37 Follow up: Response: No adverse reaction cm10 Medication: 20:55 VIS not applicable for this client. ha1 Outcome: 22:27 Discharge ordered by . cp 22:38 Discharged to home via wheelchair, with crutches, cm10 22:38 Condition: good 22:38 Discharge instructions given to patient, Instructed on discharge instructions, follow up and referral plans. medication usage, crutch walking, Demonstrated understanding of instructions, follow-up care, crutch walking, 22:48 Patient left the ED. cm10 Signatures: Dispatcher [employer] [facility] Casey Broussard PA PA cp Blue Saldana RN RN as6 Elizabeth Rivas RN RN ha1 Kathie Lombardi RN RN cm10 Sasha Donohue 2
[2023-08-31] MEDS ORDERED: CODEINE 30MG/APAP 300MG TAB ONE (22:30)
[2023-09-01 04:17] VITALS: BP 102/72; TEMP 97.7; O2SAT 99
== END 2023-08-31 22:48 | disposition home or self-care (01) ==
LOC: ER 20:13
DX: M25.562 Pain in left knee (principal)
CPT/HCPCS: 99283

== ENCOUNTER 2023-09-15 18:45 | Emergency (ER) | payer SELFPAY ==
--- OUTSIDE RECORDS SUMMARY | 2023-09-15 18:52 | XMS REPORT | Continuity of Care Document ---
Author Name Unknown Address [address] [facility]. [address] [place] [address] [facility] Address [address] [facility] [address] [place] [address] Care Team Providers Care Fur Sorter Name Role Phone Francesca Walsh Primary Care Physician [phone] Corey LEDEZMA Attending Clinician Unavailable Corey Neal Attending Clinician [phone] Doctor Unassigned, [place] Attending Clinician U [facility] Attending Clinicia n ALVARO HERNDON Attending Clinician Unavailable Alvaro Herndon MD Attending Clinician [phone] PRAKASH ALLAN Attending Clinician Unavailable Prakash Wells S Attending Clinician [phone] Felipa Castellanos Attending Clinician + FELIPA BRISENO Attending Clinician Unavail Annabella Munson NP Attending Clinician [phone] Lise Garcia RN Attending Clinician Unavailable Jake Jonas MD Attending Clinician [phone] Morena Benton DO Attending Clinician [phone] MORENA BENTON Attending Clinician Unavailab lE Rose Attending Clinician [phone] EL HUSSEIN Attending Clinician Unavailable Corey LEDEZMA [...] woman exam Disease Active 10-17 00:00: 00 [facility] Obesity (BMI 30-39.9) Obesity (BMI 30-39.9) Disease Active 10-17 00:00: 00 [facility] Pilonidal cyst Pilonidal cyst Disease Active 10-17 00:00: 00 [facility] No known active problems No known active problems Disease [facility] Allergies, Adverse Reactions, Alerts Allergy Name Allergy Type Status Severity Reaction(s) Onset Date Inactive Date Treating Clinician Comments Source Cat Dander Propensi ty to adverse reaction s Active Hives 10-17 00:00: 00 [facility] CAT DANDER DRUG INGREDI Active Hives 10-17 00:00: 00 [facility] Penicill ins Propensi ty to adverse reaction s Active Hives 02-15 00:00: 00 [facility] PENICILL INS Drug Class Active Hives 02-15 00:00: 00 [facility] Penicill ins Propensi ty to adverse reaction s Active Hives 02-15 00:00: 00 [facility] Social History Social Habit Start Date Stop Date Quantity Comments Source Gender identity [facility] of tobacco use Cigarette Smoker [facility] History SDOH Alcohol Frequency [facility] History SDOH Alcohol Std Drinks [facility] History SDOH Alcohol Binge [facility] Exposure to SARS-CoV-2 (event) 2022-06-22 00:00:00 2022-07-02 12:36:[address] [facility] History of Social function 2020-10-17 00:00:00 2020-10-17 00:00:[address] [facility] Cigarettes smoked current (pack per day) - Reported 2020-10-17 00:00:00 2020-10-17 00:00:[address] [facility] Tobacco use and exposure 2020-10-17 00:00:00 2020-10-17 00:00:[address]eless tobacco user [facility] Alcohol intake 2020-10-17 00:00:00 2020-10-17 00:00:00 Current drinker of alcohol (finding) [facility] Tobacco Comment 2020-10-17 00:00:00 2020-10-17 00:00:00 8-[address] [facility] Alcohol Comment 2020-10-17 00:00:00 2020-10-17 00:00:[address] [facility] Sex Assigned At 2000 00:00:00 1999 00:00:[address] [facility] Smoking Status Start Date Stop Date Source Smokes tobacco daily 2020-10-17 00:00:[address] [facility] Unknown if ever smoked [facility] Medications Ordered Medication Name Filled Medication Name Start Date Stop Date Current Medication? Ordering Clinician Indication Dosage Frequency Signature (SIG) Comments Components Source ketorolac (TORADOL) injection 30 mg 01-21 07:00: 00 01-21 06:05 :00 No 30mg 30 mg, Intramuscu lar, ONCE, 1 dose, On Fri01/21/23 at 0200, SHALOM [facility] iopamidol (ISOVUE 370-500 mL) injection 80 mL 11-27 07:15: 00 11-27 06:24 :00 No [id number] 80mL 80 mL, Intravenou s, ONCE, 1 dose, On Fri11/27/22 at 0215, Routine [facility] NaCl 0.9% (NS) bolus infusion 1,000 mL 11-27 05:30: 00 11-27 06:58 :00 No 1000mL at 999 mL/hr, 1,000 mL, IV Infusion, ONCE, 1 dose, On Fri11/27/22 at 0030, STAT [facility] metoclopram shade HCl (REGLAN) injection 10 mg 11-27 04:30: 00 11-27 05:20 :00 No 10mg 10 mg, Slow IV Push, ONCE, 1 dose, On Fri11/26/22 at 2330, SHALOM [facility] metoclopram shade HCl 10 mg tablet 11-27 00:00: 00 Yes [id number] 10mg Take 1 tablet by mouth every 6 (six) hours. [facility] famotidine 20 mg tablet 11-27 00:00: 00 Yes [id number] 20mg Take 1 tablet by mouth in the morning and 1 tablet in the evening. [facility] ibuprofen (IBU) tablet 600 mg 07-02 18:30: 00 07-02 18:57 :00 No 600mg 600 mg, Oral, ONCE, 1 dose, On Fri07/02/22 at 1230, SHALOM [facility] clindamycin (CLEOCIN HCL) capsule 450 mg [...] n use: pilonidal cyst allergic to PCN [facility] clindamycin 150 mg capsule 09-13 00:00: 00 09-24 04:59 :00 No [id number] 450mg Take 3 capsules by mouth 3 (three) times daily for 10 days. [facility] norgestimat e-ethinyl estradioL (ORTHO TRI-CYCLEN, 28,) 0.18/0.215/ 0.25 mg-35 mcg (28) tablet 08 00:00: 00 Yes [id number] 1{tbl} Take 1 tablet by mouth daily. [facility] medroxyPROG ESTERone (PROVERA) 10 mg tablet 10-19 00:00: 00 10-30 04:59 :00 No [id number] 10mg Take 1 tablet by mouth daily for 10 days. [facility] phentermine 37.5 mg capsule 10-17 18:21: 18 Yes 37.5mg Take 37.5 mg by mouth every morning. [facility] phentermine 37.5 mg capsule 10-17 13:21: 18 Yes 37.5mg Take 37.5 mg by mouth every morning. [facility] ketorolac (TORADOL) injection 30 mg 08-09 05:45: 00 08-09 05:42 :00 No 30mg 30 mg, Slow IV Push, ONCE, 1 dose, [facility] 08/08/20 at 2345, SHALOM
Fa culty member approving Restricted medication : MORENA BENTON [facility] sulfamethox azole-trime thoprim (BACTRIM DS) 800-160 mg per tablet 02-15 00:00: 00 10-17 00:00 :00 No 2{tbl} Take 2 tablets by mouth 2 (two) times daily. [facility] traMADOL (ULTRAM) 50 mg tablet 02-15 00:00: 00 10-17 00:00 :00 No 50mg Take 1-2 tablets by mouth every 8 (eight) hours as needed (severe pain, alternate with ibuprofen) . [facility] Immunizations Ordered Immunization Name Filled Immunization Name Date Status Comments Source [facility] 2020-10-17 00:00:00 Completed [facility] 2020-10-17 00:00:00 Completed [place] [address] 2020-10-17 00:00:00 Completed [place] [address] 2020-10-17 00:00:[address] [facility] HPV9 2020-10-17 00:00:[address] [facility] HPV9 2020-10-17 00:00:[address] [facility] HPV9 2020-10-17 00:00:[address] [facility] HPV9 2020-10-17 00:00:[address] [facility] HPV9 2020-10-17 00:00:[address] [facility] HPV9 2020-10-17 00:00:[address] [facility] HPV9 2020-10-17 00:00:[address] [facility] HPV9 2020-10-17 00:00:[address] [facility] HPV9 2020-10-17 00:00:[address] [facility] HPV9 2020-10-17 00:00:[address] [facility] HPV9 2020-10-17 00:00:[address] [facility] HPV9 2020-10-17 00:00:[address] [facility] HPV9 2020-10-17 00:00:[address] [facility] HPV9 2020-10-17 00:00:[address] [facility] HPV9 2020-10-17 00:00:[address] [facility] HPV9 2020-10-17 00:00:[address] [facility] HPV9 2020-10-17 00:00:[address] [facility] HPV9 2020-10-17 00:00:[address] [facility] HPV9 2020-10-17 00:00:[address] [facility] HPV9 2020-10-17 00:00:[address] [facility] HPV9 2020-10-17 00:00:[address] [facility] HPV9 2020-10-17 00:00:[address] [facility] HPV9 2020-10-17 00:00:[address] [facility] HPV 2018-09-15 00:00:[address] [facility] Meningococcal Vaccine 2018-09-15 00:00:[address] [facility] HPV 2018-09-15 00:00:[address] [facility] Meningococcal Vaccine 2018-09-15 00:00:[address] [facility] HPV 2018-09-15 00:00:[address] [facility] Meningococcal Vaccine 2018-09-15 00:00:[address] [facility] HPV 2018-09-15 00:00:[address] [facility] Meningococcal Vaccine 2018-09-15 00:00:[address] [facility] HPV 2018-09-15 00:00:[address] [facility] Meningococcal Vaccine 2018-09-15 00:00:[address] [facility] HPV 2018-09-15 00:00:[address] [facility] Meningococcal Vaccine 2018-09-15 00:00:[address] [facility] HPV 2018-09-15 00:00:[address] [facility] Meningococcal Vaccine 2018-09-15 00:00:[address] [facility] HPV 2018-09-15 00:00:[address] [facility] Meningococcal Vaccine 2018-09-15 00:00:[address] [facility] HPV 2018-09-15 00:00:[address] [facility] Meningococcal Vaccine 2018-09-15 00:00:[address] [facility] HPV 2018-09-15 00:00:[address] [facility] Meningococcal Vaccine 2018-09-15 00:00:[address] [facility] HPV 2018-09-15 00:00:[address] [facility] Meningococcal Vaccine 2018-09-15 00:00:[address] [facility] HPV 2018-09-15 00:00:[address] [facility] Meningococcal Vaccine 2018-09-15 00:00:[address] [facility] HPV 2018-09-15 00:00:[address] [facility] Meningococcal Vaccine 2018-09-15 00:00:[address] [facility] HPV 2018-09-15 00:00:[address] [facility] Meningococcal Vaccine 2018-09-15 00:00:[address] [facility] HPV 2018-09-15 00:00:[address] [facility] Meningococcal Vaccine 2018-09-15 00:00:[address] [facility] HPV 2018-09-15 00:00:[address] [facility] Meningococcal Vaccine 2018-09-15 00:00:[address] [facility] HPV 2018-09-15 00:00:[address] [facility] Meningococcal Vaccine 2018-09-15 00:00:[address] [facility] HPV 2018-09-15 00:00:[address] [facility] Meningococcal Vaccine 2018-09-15 00:00:[address] [facility] HPV 2018-09-15 00:00:[address] [facility] Meningococcal Vaccine 2018-09-15 00:00:[address] [facility] HPV 2018-09-15 00:00:[address] [facility] Meningococcal Vaccine 2018-09-15 00:00:[address] [facility] HPV 2018-09-15 00:00:[address] [facility] Meningococcal Vaccine 2018-09-15 00:00:[address] [facility] HPV 2018-09-15 00:00:[address] [facility] Meningococcal Vaccine 2018-09-15 00:00:[address] [facility] HPV 2018-09-15 00:00:[address] [facility] Meningococcal Vaccine 2018-09-15 00:00:[address] [facility] HPV 2018-09-15 00:00:[address] [facility] Meningococcal Vaccine 2018-09-15 00:00:[address] [facility] HPV 2018-09-15 00:00:[address] [facility] Meningococcal Vaccine 2018-09-15 00:00:[address] [facility] HPV 2018-09-15 00:00:[address] [facility] Meningococcal Vaccine 2018-09-15 00:00:[address] [facility] HPV 2018-09-15 00:00:[address] [facility] Meningococcal Vaccine 2018-09-15 00:00:[address] [facility] HEPATITIS A 2012-01-21 00:00:[address] [facility] Meningococcal Vaccine 2012-01-21 00:00:[address] [facility] TDAP 2012-01-21 00:00:[address] [facility] Varicella (varivax)(chicken pox) 2012-01-21 00:00:[address] [facility] HEPATITIS A 2012-01-21 00:00:[address] [facility] Meningococcal Vaccine 2012-01-21 00:00:[address] [facility] TDAP 2012-01-21 00:00:[address] [facility] Varicella (varivax)(chicken pox) 2012-01-21 00:00:[address] [facility] HEPATITIS A 2012-01-21 00:00:[address] [facility] Meningococcal Vaccine 2012-01-21 00:00:[address] [facility] TDAP 2012-01-21 00:00:[address] [facility] Varicella (varivax)(chicken pox) 2012-01-21 00:00:[address] [facility] HEPATITIS A 2012-01-21 00:00:[address] [facility] Meningococcal Vaccine 2012-01-21 00:00:[address] [facility] TDAP 2012-01-21 00:00:[address] [facility] Varicella (varivax)(chicken pox) 2012-01-21 00:00:[address] [facility] HEPATITIS A 2012-01-21 00:00:[address] [facility] Meningococcal Vaccine 2012-01-21 00:00:[address] [facility] TDAP 2012-01-21 00:00:[address] [facility] Varicella (varivax)(chicken pox) 2012-01-21 00:00:[address] [facility] HEPATITIS A 2012-01-21 00:00:[address] [facility] Meningococcal Vaccine 2012-01-21 00:00:[address] [facility] TDAP 2012-01-21 00:00:[address] [facility] Varicella (varivax)(chicken pox) 2012-01-21 00:00:[address] [facility] HEPATITIS A 2012-01-21 00:00:[address] [facility] Meningococcal Vaccine 2012-01-21 00:00:[address] [facility] TDAP 2012-01-21 00:00:[address] [facility] Varicella (varivax)(chicken pox) 2012-01-21 00:00:[address] [facility] HEPATITIS A 2012-01-21 00:00:[address] [facility] Meningococcal Vaccine 2012-01-21 00:00:[address] [facility] TDAP 2012-01-21 00:00:[address] [facility] Varicella (varivax)(chicken pox) 2012-01-21 00:00:[address] [facility] HEPATITIS A 2012-01-21 00:00:[address] [facility] Meningococcal Vaccine 2012-01-21 00:00:[address] [facility] TDAP 2012-01-21 00:00:[address] [facility] Varicella (varivax)(chicken pox) 2012-01-21 00:00:[address] [facility] HEPATITIS A 2012-01-21 00:00:[address] [facility] Meningococcal Vaccine 2012-01-21 00:00:[address] [facility] TDAP 2012-01-21 00:00:[address] [facility] Varicella (varivax)(chicken pox) 2012-01-21 00:00:[address] [facility] HEPATITIS A 2012-01-21 00:00:[address] [facility] Meningococcal Vaccine 2012-01-21 00:00:[address] [facility] TDAP 2012-01-21 00:00:[address] [facility] Varicella (varivax)(chicken pox) 2012-01-21 00:00:[address] [facility] HEPATITIS A 2012-01-21 00:00:[address] [facility] Meningococcal Vaccine 2012-01-21 00:00:[address] [facility] TDAP 2012-01-21 00:00:[address] [facility] Varicella (varivax)(chicken pox) 2012-01-21 00:00:[address] [facility] HEPATITIS A 2012-01-21 00:00:[address] [facility] Meningococcal Vaccine 2012-01-21 00:00:[address] [facility] TDAP 2012-01-21 00:00:[address] [facility] Varicella (varivax)(chicken pox) 2012-01-21 00:00:[address] [facility] HEPATITIS A 2012-01-21 00:00:[address] [facility] Meningococcal Vaccine 2012-01-21 00:00:[address] [facility] TDAP 2012-01-21 00:00:[address] [facility] Varicella (varivax)(chicken pox) 2012-01-21 00:00:[address] [facility] HEPATITIS A 2012-01-21 00:00:[address] [facility] Meningococcal Vaccine 2012-01-21 00:00:[address] [facility] TDAP 2012-01-21 00:00:[address] [facility] Varicella (varivax)(chicken pox) 2012-01-21 00:00:[address] [facility] HEPATITIS A 2012-01-21 00:00:[address] [facility] Meningococcal Vaccine 2012-01-21 00:00:[address] [facility] TDAP 2012-01-21 00:00:[address] [facility] Varicella (varivax)(chicken pox) 2012-01-21 00:00:[address] [facility] HEPATITIS A 2012-01-21 00:00:[address] [facility] Meningococcal Vaccine 2012-01-21 00:00:[address] [facility] TDAP 2012-01-21 00:00:[address] [facility] Varicella (varivax)(chicken pox) 2012-01-21 00:00:[address] [facility] HEPATITIS A 2012-01-21 00:00:[address] [facility] Meningococcal Vaccine 2012-01-21 00:00:[address] [facility] TDAP 2012-01-21 00:00:[address] [facility] Varicella (varivax)(chicken pox) 2012-01-21 00:00:[address] [facility] HEPATITIS A 2012-01-21 00:00:[address] [facility] Meningococcal Vaccine 2012-01-21 00:00:[address] [facility] TDAP 2012-01-21 00:00:[address] [facility] Varicella (varivax)(chicken pox) 2012-01-21 00:00:[address] [facility] HEPATITIS A 2012-01-21 00:00:[address] [facility] Meningococcal Vaccine 2012-01-21 00:00:[address] [facility] TDAP 2012-01-21 00:00:[address] [facility] Varicella (varivax)(chicken pox) 2012-01-21 00:00:[address] [facility] HEPATITIS A 2012-01-21 00:00:[address] [facility] Meningococcal Vaccine 2012-01-21 00:00:[address] [facility] TDAP 2012-01-21 00:00:[address] [facility] Varicella (varivax)(chicken pox) 2012-01-21 00:00:[address] [facility] HEPATITIS A 2012-01-21 00:00:[address] [facility] Meningococcal Vaccine 2012-01-21 00:00:[address] [facility] TDAP 2012-01-21 00:00:[address] [facility] Varicella (varivax)(chicken pox) 2012-01-21 00:00:[address] [facility] HEPATITIS A 2012-01-21 00:00:[address] [facility] Meningococcal Vaccine 2012-01-21 00:00:[address] [facility] TDAP 2012-01-21 00:00:[address] [facility] Varicella (varivax)(chicken pox) 2012-01-21 00:00:[address] [facility] HEPATITIS A 2012-01-21 00:00:[address] [facility] Meningococcal Vaccine 2012-01-21 00:00:[address] [facility] TDAP 2012-01-21 00:00:[address] [facility] Varicella (varivax)(chicken pox) 2012-01-21 00:00:[address] [facility] HEPATITIS A 2012-01-21 00:00:[address] [facility] Meningococcal Vaccine 2012-01-21 00:00:[address] [facility] TDAP 2012-01-21 00:00:[address] [facility] Varicella (varivax)(chicken pox) 2012-01-21 00:00:[address] [facility] HEPATITIS A 2012-01-21 00:00:[address] [facility] Meningococcal Vaccine 2012-01-21 00:00:[address] [facility] TDAP 2012-01-21 00:00:[address] [facility] Varicella (varivax)(chicken pox) 2012-01-21 00:00:[address] [facility] HEPATITIS A 2012-01-21 00:00:[address] [facility] Meningococcal Vaccine 2012-01-21 00:00:[address] [facility] TDAP 2012-01-21 00:00:[address] [facility] Varicella (varivax)(chicken pox) 2012-01-21 00:00:[address] [facility] MMR 2005-01-08 00:00:[address] [facility] MMR 2005-01-08 00:00:[address] [facility] MMR 2005-01-08 00:00:[address] [facility] MMR 2005-01-08 00:00:[address] [facility] MMR 2005-01-08 00:00:[address] [facility] MMR 2005-01-08 00:00:[address] [facility] MMR 2005-01-08 00:00:[address] [facility] MMR 2005-01-08 00:00:[address] [facility] MMR 2005-01-08 00:00:[address] [facility] MMR 2005-01-08 00:00:[address] [facility] MMR 2005-01-08 00:00:[address] [facility] MMR 2005-01-08 00:00:[address] [facility] MMR 2005-01-08 00:00:[address] [facility] MMR 2005-01-08 00:00:[address] [facility] MMR 2005-01-08 00:00:[address] [facility] MMR 2005-01-08 00:00:[address] [facility] MMR 2005-01-08 00:00:[address] [facility] MMR 2005-01-08 00:00:[address] [facility] MMR 2005-01-08 00:00:[address] [facility] MMR 2005-01-08 00:00:[address] [facility] MMR 2005-01-08 00:00:[address] [facility] MMR 2005-01-08 00:00:[address] [facility] MMR 2005-01-08 00:00:[address] [facility] MMR 2005-01-08 00:00:[address] [facility] MMR 2005-01-08 00:00:[address] [facility] MMR 2005-01-08 00:00:[address] [facility] MMR 2005-01-08 00:00:[address] [facility] DTAP 2004-12-07 00:00:[address] [facility] MMR 2004-12-07 00:00:[address] [facility] Pneumococcal 13 Conjugate, PCV13 (Prevnar 13) 2004-12-07 00:00:[address] [facility] Polio (IPV/OPV) 2004-12-07 00:00:[address] [facility] Varicella (varivax)(chicken pox) 2004-12-07 00:00:[address] [facility] DTAP 2004-12-07 00:00:[address] [facility] MMR 2004-12-07 00:00:[address] [facility] Pneumococcal 13 Conjugate, PCV13 (Prevnar 13) 2004-12-07 00:00:[address] [facility] Polio (IPV/OPV) 2004-12-07 00:00:[address] [facility] Varicella (varivax)(chicken pox) 2004-12-07 00:00:[address] [facility] DTAP 2004-12-07 00:00:[address] [facility] MMR 2004-12-07 00:00:[address] [facility] Pneumococcal 13 Conjugate, PCV13 (Prevnar 13) 2004-12-07 00:00:[address] [facility] Polio (IPV/OPV) 2004-12-07 00:00:[address] [facility] Varicella (varivax)(chicken pox) 2004-12-07 00:00:[address] [facility] DTAP 2004-12-07 00:00:[address] [facility] MMR 2004-12-07 00:00:[address] [facility] Pneumococcal 13 Conjugate, PCV13 (Prevnar 13) 2004-12-07 00:00:[address] [facility] Polio (IPV/OPV) 2004-12-07 00:00:[address] [facility] Varicella (varivax)(chicken pox) 2004-12-07 00:00:[address] [facility] DTAP 2004-12-07 00:00:[address] [facility] MMR 2004-12-07 00:00:[address] [facility] Pneumococcal 13 Conjugate, PCV13 (Prevnar 13) 2004-12-07 00:00:[address] [facility] Polio (IPV/OPV) 2004-12-07 00:00:[address] [facility] Varicella (varivax)(chicken pox) 2004-12-07 00:00:[address] [facility] DTAP 2004-12-07 00:00:[address] [facility] MMR 2004-12-07 00:00:[address] [facility] Pneumococcal 13 Conjugate, PCV13 (Prevnar 13) 2004-12-07 00:00:[address] [facility] Polio (IPV/OPV) 2004-12-07 00:00:[address] [facility] Varicella (varivax)(chicken pox) 2004-12-07 00:00:[address] [facility] DTAP 2004-12-07 00:00:[address] [facility] MMR 2004-12-07 00:00:[address] [facility] Pneumococcal 13 Conjugate, PCV13 (Prevnar 13) 2004-12-07 00:00:[address] [facility] Polio (IPV/OPV) 2004-12-07 00:00:[address] [facility] Varicella (varivax)(chicken pox) 2004-12-07 00:00:[address] [facility] DTAP 2004-12-07 00:00:[address] [facility] MMR 2004-12-07 00:00:[address] [facility] Pneumococcal 13 Conjugate, PCV13 (Prevnar 13) 2004-12-07 00:00:[address] [facility] Polio (IPV/OPV) 2004-12-07 00:00:[address] [facility] Varicella (varivax)(chicken pox) 2004-12-07 00:00:[address] [facility] DTAP 2004-12-07 00:00:[address] [facility] MMR 2004-12-07 00:00:[address] [facility] Pneumococcal 13 Conjugate, PCV13 (Prevnar 13) 2004-12-07 00:00:[address] [facility] Polio (IPV/OPV) 2004-12-07 00:00:[address] [facility] Varicella (varivax)(chicken pox) 2004-12-07 00:00:[address] [facility] DTAP 2004-12-07 00:00:[address] [facility] MMR 2004-12-07 00:00:[address] [facility] Pneumococcal 13 Conjugate, PCV13 (Prevnar 13) 2004-12-07 00:00:[address] [facility] Polio (IPV/OPV) 2004-12-07 00:00:[address] [facility] Varicella (varivax)(chicken pox) 2004-12-07 00:00:[address] [facility] DTAP 2004-12-07 00:00:[address] [facility] MMR 2004-12-07 00:00:[address] [facility] Pneumococcal 13 Conjugate, PCV13 (Prevnar 13) 2004-12-07 00:00:[address] [facility] Polio (IPV/OPV) 2004-12-07 00:00:[address] [facility] Varicella (varivax)(chicken pox) 2004-12-07 00:00:[address] [facility] DTAP 2004-12-07 00:00:[address] [facility] MMR 2004-12-07 00:00:[address] [facility] Pneumococcal 13 Conjugate, PCV13 (Prevnar 13) 2004-12-07 00:00:[address] [facility] Polio (IPV/OPV) 2004-12-07 00:00:[address] [facility] Varicella (varivax)(chicken pox) 2004-12-07 00:00:[address] [facility] DTAP 2004-12-07 00:00:[address] [facility] MMR 2004-12-07 00:00:[address] [facility] Pneumococcal 13 Conjugate, PCV13 (Prevnar 13) 2004-12-07 00:00:[address] [facility] Polio (IPV/OPV) 2004-12-07 00:00:[address] [facility] Varicella (varivax)(chicken pox) 2004-12-07 00:00:[address] [facility] DTAP 2004-12-07 00:00:[address] [facility] MMR 2004-12-07 00:00:[address] [facility] Pneumococcal 13 Conjugate, PCV13 (Prevnar 13) 2004-12-07 00:00:[address] [facility] Polio (IPV/OPV) 2004-12-07 00:00:[address] [facility] Varicella (varivax)(chicken pox) 2004-12-07 00:00:[address] [facility] DTAP 2004-12-07 00:00:[address] [facility] MMR 2004-12-07 00:00:[address] [facility] Pneumococcal 13 Conjugate, PCV13 (Prevnar 13) 2004-12-07 00:00:[address] [facility] Polio (IPV/OPV) 2004-12-07 00:00:[address] [facility] Varicella (varivax)(chicken pox) 2004-12-07 00:00:[address] [facility] DTAP 2004-12-07 00:00:[address] [facility] MMR 2004-12-07 00:00:[address] [facility] Pneumococcal 13 Conjugate, PCV13 (Prevnar 13) 2004-12-07 00:00:[address] [facility] Polio (IPV/OPV) 2004-12-07 00:00:[address] [facility] Varicella (varivax)(chicken pox) 2004-12-07 00:00:[address] [facility] DTAP 2004-12-07 00:00:[address] [facility] MMR 2004-12-07 00:00:[address] [facility] Pneumococcal 13 Conjugate, PCV13 (Prevnar 13) 2004-12-07 00:00:[address] [facility] Polio (IPV/OPV) 2004-12-07 00:00:[address] [facility] Varicella (varivax)(chicken pox) 2004-12-07 00:00:[address] [facility] DTAP 2004-12-07 00:00:[address] [facility] MMR 2004-12-07 00:00:[address] [facility] Pneumococcal 13 Conjugate, PCV13 (Prevnar 13) 2004-12-07 00:00:[address] [facility] Polio (IPV/OPV) 2004-12-07 00:00:[address] [facility] Varicella (varivax)(chicken pox) 2004-12-07 00:00:[address] [facility] DTAP 2004-12-07 00:00:[address] [facility] MMR 2004-12-07 00:00:[address] [facility] Pneumococcal 13 Conjugate, PCV13 (Prevnar 13) 2004-12-07 00:00:[address] [facility] Polio (IPV/OPV) 2004-12-07 00:00:[address] [facility] Varicella (varivax)(chicken pox) 2004-12-07 00:00:[address] [facility] DTAP 2004-12-07 00:00:[address] [facility] MMR 2004-12-07 00:00:[address] [facility] Pneumococcal 13 Conjugate, PCV13 (Prevnar 13) 2004-12-07 00:00:[address] [facility] Polio (IPV/OPV) 2004-12-07 00:00:[address] [facility] Varicella (varivax)(chicken pox) 2004-12-07 00:00:[address] [facility] DTAP 2004-12-07 00:00:[address] [facility] MMR 2004-12-07 00:00:[address] [facility] Pneumococcal 13 Conjugate, PCV13 (Prevnar 13) 2004-12-07 00:00:[address] [facility] Polio (IPV/OPV) 2004-12-07 00:00:[address] [facility] Varicella (varivax)(chicken pox) 2004-12-07 00:00:[address] [facility] DTAP 2004-12-07 00:00:[address] [facility] MMR 2004-12-07 00:00:[address] [facility] Pneumococcal 13 Conjugate, PCV13 (Prevnar 13) 2004-12-07 00:00:[address] [facility] Polio (IPV/OPV) 2004-12-07 00:00:[address] [facility] Varicella (varivax)(chicken pox) 2004-12-07 00:00:[address] [facility] DTAP 2004-12-07 00:00:[address] [facility] MMR 2004-12-07 00:00:[address] [facility] Pneumococcal 13 Conjugate, PCV13 (Prevnar 13) 2004-12-07 00:00:[address] [facility] Polio (IPV/OPV) 2004-12-07 00:00:[address] [facility] Varicella (varivax)(chicken pox) 2004-12-07 00:00:[address] [facility] DTAP 2004-12-07 00:00:[address] [facility] MMR 2004-12-07 00:00:[address] [facility] Pneumococcal 13 Conjugate, PCV13 (Prevnar 13) 2004-12-07 00:00:[address] [facility] Polio (IPV/OPV) 2004-12-07 00:00:[address] [facility] Varicella (varivax)(chicken pox) 2004-12-07 00:00:[address] [facility] DTAP 2004-12-07 00:00:[address] [facility] MMR 2004-12-07 00:00:[address] [facility] Pneumococcal 13 Conjugate, PCV13 (Prevnar 13) 2004-12-07 00:00:[address] [facility] Polio (IPV/OPV) 2004-12-07 00:00:[address] [facility] Varicella (varivax)(chicken pox) 2004-12-07 00:00:[address] [facility] DTAP 2004-12-07 00:00:[address] [facility] MMR 2004-12-07 00:00:[address] [facility] Pneumococcal 13 Conjugate, PCV13 (Prevnar 13) 2004-12-07 00:00:[address] [facility] Polio (IPV/OPV) 2004-12-07 00:00:[address] [facility] Varicella (varivax)(chicken pox) 2004-12-07 00:00:[address] [facility] DTAP 2004-12-07 00:00:[address] [facility] MMR 2004-12-07 00:00:[address] [facility] Pneumococcal 13 Conjugate, PCV13 (Prevnar 13) 2004-12-07 00:00:[address] [facility] Polio (IPV/OPV) 2004-12-07 00:00:[address] [facility] Varicella (varivax)(chicken pox) 2004-12-07 00:00:[address] [facility] DTAP 2001-03-04 00:00:[address] [facility] HIB 3 Dose Schedule 2001-03-04 00:00:[address] [facility] Hep B, Adol or Pedi Dosage 2001-03-04 00:00:[address] [facility] Polio (IPV/OPV) 2001-03-04 00:00:[address] [facility] DTAP 2001-03-04 00:00:[address] [facility] HIB 3 Dose Schedule 2001-03-04 00:00:[address] [facility] Hep B, Adol or Pedi Dosage 2001-03-04 00:00:[address] [facility] Polio (IPV/OPV) 2001-03-04 00:00:[address] [facility] DTAP 2001-03-04 00:00:[address] [facility] HIB 3 Dose Schedule 2001-03-04 00:00:[address] [facility] Hep B, Adol or Pedi Dosage 2001-03-04 00:00:[address] [facility] Polio (IPV/OPV) 2001-03-04 00:00:[address] [facility] DTAP 2001-03-04 00:00:[address] [facility] HIB 3 Dose Schedule 2001-03-04 00:00:[address] [facility] Hep B, Adol or Pedi Dosage 2001-03-04 00:00:[address] [facility] Polio (IPV/OPV) 2001-03-04 00:00:[address] [facility] DTAP 2001-03-04 00:00:[address] [facility] HIB 3 Dose Schedule 2001-03-04 00:00:[address] [facility] Hep B, Adol or Pedi Dosage 2001-03-04 00:00:[address] [facility] Polio (IPV/OPV) 2001-03-04 00:00:[address] [facility] DTAP 2001-03-04 00:00:[address] [facility] HIB 3 Dose Schedule 2001-03-04 00:00:[address] [facility] Hep B, Adol or Pedi Dosage 2001-03-04 00:00:[address] [facility] Polio (IPV/OPV) 2001-03-04 00:00:[address] [facility] DTAP 2001-03-04 00:00:[address] [facility] HIB 3 Dose Schedule 2001-03-04 00:00:[address] [facility] Hep B, Adol or Pedi Dosage 2001-03-04 00:00:[address] [facility] Polio (IPV/OPV) 2001-03-04 00:00:[address] [facility] DTAP 2001-03-04 00:00:[address] [facility] HIB 3 Dose Schedule 2001-03-04 00:00:[address] [facility] Hep B, Adol or Pedi Dosage 2001-03-04 00:00:[address] [facility] Polio (IPV/OPV) 2001-03-04 00:00:[address] [facility] DTAP 2001-03-04 00:00:[address] [facility] HIB 3 Dose Schedule 2001-03-04 00:00:[address] [facility] Hep B, Adol or Pedi Dosage 2001-03-04 00:00:[address] [facility] Polio (IPV/OPV) 2001-03-04 00:00:[address] [facility] DTAP 2001-03-04 00:00:[address] [facility] HIB 3 Dose Schedule 2001-03-04 00:00:[address] [facility] Hep B, Adol or Pedi Dosage 2001-03-04 00:00:[address] [facility] Polio (IPV/OPV) 2001-03-04 00:00:[address] [facility] DTAP 2001-03-04 00:00:[address] [facility] HIB 3 Dose Schedule 2001-03-04 00:00:[address] [facility] Hep B, Adol or Pedi Dosage 2001-03-04 00:00:[address] [facility] Polio (IPV/OPV) 2001-03-04 00:00:[address] [facility] DTAP 2001-03-04 00:00:[address] [facility] HIB 3 Dose Schedule 2001-03-04 00:00:[address] [facility] Hep B, Adol or Pedi Dosage 2001-03-04 00:00:[address] [facility] Polio (IPV/OPV) 2001-03-04 00:00:[address] [facility] DTAP 2001-03-04 00:00:[address] [facility] HIB 3 Dose Schedule 2001-03-04 00:00:[address] [facility] Hep B, Adol or Pedi Dosage 2001-03-04 00:00:[address] [facility] Polio (IPV/OPV) 2001-03-04 00:00:[address] [facility] DTAP 2001-03-04 00:00:[address] [facility] HIB 3 Dose Schedule 2001-03-04 00:00:[address] [facility] Hep B, Adol or Pedi Dosage 2001-03-04 00:00:[address] [facility] Polio (IPV/OPV) 2001-03-04 00:00:[address] [facility] DTAP 2001-03-04 00:00:[address] [facility] HIB 3 Dose Schedule 2001-03-04 00:00:[address] [facility] Hep B, Adol or Pedi Dosage 2001-03-04 00:00:[address] [facility] Polio (IPV/OPV) 2001-03-04 00:00:[address] [facility] DTAP 2001-03-04 00:00:[address] [facility] HIB 3 Dose Schedule 2001-03-04 00:00:[address] [facility] Hep B, Adol or Pedi Dosage 2001-03-04 00:00:[address] [facility] Polio (IPV/OPV) 2001-03-04 00:00:[address] [facility] DTAP 2001-03-04 00:00:[address] [facility] HIB 3 Dose Schedule 2001-03-04 00:00:[address] [facility] Hep B, Adol or Pedi Dosage 2001-03-04 00:00:[address] [facility] Polio (IPV/OPV) 2001-03-04 00:00:[address] [facility] DTAP 2001-03-04 00:00:[address] [facility] HIB 3 Dose Schedule 2001-03-04 00:00:[address] [facility] Hep B, Adol or Pedi Dosage 2001-03-04 00:00:[address] [facility] Polio (IPV/OPV) 2001-03-04 00:00:[address] [facility] DTAP 2001-03-04 00:00:[address] [facility] HIB 3 Dose Schedule 2001-03-04 00:00:[address] [facility] Hep B, Adol or Pedi Dosage 2001-03-04 00:00:[address] [facility] Polio (IPV/OPV) 2001-03-04 00:00:[address] [facility] DTAP 2001-03-04 00:00:[address] [facility] HIB 3 Dose Schedule 2001-03-04 00:00:[address] [facility] Hep B, Adol or Pedi Dosage 2001-03-04 00:00:[address] [facility] Polio (IPV/OPV) 2001-03-04 00:00:[address] [facility] DTAP 2001-03-04 00:00:[address] [facility] HIB 3 Dose Schedule 2001-03-04 00:00:[address] [facility] Hep B, Adol or Pedi Dosage 2001-03-04 00:00:[address] [facility] Polio (IPV/OPV) 2001-03-04 00:00:[address] [facility] DTAP 2001-03-04 00:00:[address] [facility] HIB 3 Dose Schedule 2001-03-04 00:00:[address] [facility] Hep B, Adol or Pedi Dosage 2001-03-04 00:00:[address] [facility] Polio (IPV/OPV) 2001-03-04 00:00:[address] [facility] DTAP 2001-03-04 00:00:[address] [facility] HIB 3 Dose Schedule 2001-03-04 00:00:[address] [facility] Hep B, Adol or Pedi Dosage 2001-03-04 00:00:[address] [facility] Polio (IPV/OPV) 2001-03-04 00:00:[address] [facility] DTAP 2001-03-04 00:00:[address] [facility] HIB 3 Dose Schedule 2001-03-04 00:00:[address] [facility] Hep B, Adol or Pedi Dosage 2001-03-04 00:00:[address] [facility] Polio (IPV/OPV) 2001-03-04 00:00:[address] [facility] DTAP 2001-03-04 00:00:[address] [facility] HIB 3 Dose Schedule 2001-03-04 00:00:[address] [facility] Hep B, Adol or Pedi Dosage 2001-03-04 00:00:[address] [facility] Polio (IPV/OPV) 2001-03-04 00:00:[address] [facility] DTAP 2001-03-04 00:00:[address] [facility] HIB 3 Dose Schedule 2001-03-04 00:00:[address] [facility] Hep B, Adol or Pedi Dosage 2001-03-04 00:00:[address] [facility] Polio (IPV/OPV) 2001-03-04 00:00:[address] [facility] DTAP 2001-03-04 00:00:[address] [facility] HIB 3 Dose Schedule 2001-03-04 00:00:[address] [facility] Hep B, Adol or Pedi Dosage 2001-03-04 00:00:[address] [facility] Polio (IPV/OPV) 2001-03-04 00:00:[address] [facility] DTAP 2000-03-05 00:00:[address] [facility] HIB 3 Dose Schedule 2000-03-05 00:00:[address] [facility] Hep B, Adol or Pedi Dosage 2000-03-05 00:00:[address] [facility] Polio (IPV/OPV) 2000-03-05 00:00:[address] [facility] DTAP 2000-03-05 00:00:[address] [facility] HIB 3 Dose Schedule 2000-03-05 00:00:[address] [facility] Hep B, Adol or Pedi Dosage 2000-03-05 00:00:[address] [facility] Polio (IPV/OPV) 2000-03-05 00:00:[address] [facility] DTAP 2000-03-05 00:00:[address] [facility] HIB 3 Dose Schedule 2000-03-05 00:00:[address] [facility] Hep B, Adol or Pedi Dosage 2000-03-05 00:00:[address] [facility] Polio (IPV/OPV) 2000-03-05 00:00:[address] [facility] DTAP 2000-03-05 00:00:[address] [facility] HIB 3 Dose Schedule 2000-03-05 00:00:[address] [facility] Hep B, Adol or Pedi Dosage 2000-03-05 00:00:[address] [facility] Polio (IPV/OPV) 2000-03-05 00:00:[address] [facility] DTAP 2000-03-05 00:00:[address] [facility] HIB 3 Dose Schedule 2000-03-05 00:00:[address] [facility] Hep B, Adol or Pedi Dosage 2000-03-05 00:00:[address] [facility] Polio (IPV/OPV) 2000-03-05 00:00:[address] [facility] DTAP 2000-03-05 00:00:[address] [facility] HIB 3 Dose Schedule 2000-03-05 00:00:[address] [facility] Hep B, Adol or Pedi Dosage 2000-03-05 00:00:[address] [facility] Polio (IPV/OPV) 2000-03-05 00:00:[address] [facility] DTAP 2000-03-05 00:00:[address] [facility] HIB 3 Dose Schedule 2000-03-05 00:00:[address] [facility] Hep B, Adol or Pedi Dosage 2000-03-05 00:00:[address] [facility] Polio (IPV/OPV) 2000-03-05 00:00:[address] [facility] DTAP 2000-03-05 00:00:[address] [facility] HIB 3 Dose Schedule 2000-03-05 00:00:[address] [facility] Hep B, Adol or Pedi Dosage 2000-03-05 00:00:[address] [facility] Polio (IPV/OPV) 2000-03-05 00:00:[address] [facility] DTAP 2000-03-05 00:00:[address] [facility] HIB 3 Dose Schedule 2000-03-05 00:00:[address] [facility] Hep B, Adol or Pedi Dosage 2000-03-05 00:00:[address] [facility] Polio (IPV/OPV) 2000-03-05 00:00:[address] [facility] DTAP 2000-03-05 00:00:[address] [facility] HIB 3 Dose Schedule 2000-03-05 00:00:[address] [facility] Hep B, Adol or Pedi Dosage 2000-03-05 00:00:[address] [facility] Polio (IPV/OPV) 2000-03-05 00:00:[address] [facility] DTAP 2000-03-05 00:00:[address] [facility] HIB 3 Dose Schedule 2000-03-05 00:00:[address] [facility] Hep B, Adol or Pedi Dosage 2000-03-05 00:00:[address] [facility] Polio (IPV/OPV) 2000-03-05 00:00:[address] [facility] DTAP 2000-03-05 00:00:[address] [facility] HIB 3 Dose Schedule 2000-03-05 00:00:[address] [facility] Hep B, Adol or Pedi Dosage 2000-03-05 00:00:[address] [facility] Polio (IPV/OPV) 2000-03-05 00:00:[address] [facility] DTAP 2000-03-05 00:00:[address] [facility] HIB 3 Dose Schedule 2000-03-05 00:00:[address] [facility] Hep B, Adol or Pedi Dosage 2000-03-05 00:00:[address] [facility] Polio (IPV/OPV) 2000-03-05 00:00:[address] [facility] DTAP 2000-03-05 00:00:[address] [facility] HIB 3 Dose Schedule 2000-03-05 00:00:[address] [facility] Hep B, Adol or Pedi Dosage 2000-03-05 00:00:[address] [facility] Polio (IPV/OPV) 2000-03-05 00:00:[address] [facility] DTAP 2000-03-05 00:00:[address] [facility] HIB 3 Dose Schedule 2000-03-05 00:00:[address] [facility] Hep B, Adol or Pedi Dosage 2000-03-05 00:00:[address] [facility] Polio (IPV/OPV) 2000-03-05 00:00:[address] [facility] DTAP 2000-03-05 00:00:[address] [facility] HIB 3 Dose Schedule 2000-03-05 00:00:[address] [facility] Hep B, Adol or Pedi Dosage 2000-03-05 00:00:[address] [facility] Polio (IPV/OPV) 2000-03-05 00:00:[address] [facility] DTAP 2000-03-05 00:00:[address] [facility] HIB 3 Dose Schedule 2000-03-05 00:00:[address] [facility] Hep B, Adol or Pedi Dosage 2000-03-05 00:00:[address] [facility] Polio (IPV/OPV) 2000-03-05 00:00:[address] [facility] DTAP 2000-03-05 00:00:[address] [facility] HIB 3 Dose Schedule 2000-03-05 00:00:[address] [facility] Hep B, Adol or Pedi Dosage 2000-03-05 00:00:[address] [facility] Polio (IPV/OPV) 2000-03-05 00:00:[address] [facility] DTAP 2000-03-05 00:00:[address] [facility] HIB 3 Dose Schedule 2000-03-05 00:00:[address] [facility] Hep B, Adol or Pedi Dosage 2000-03-05 00:00:[address] [facility] Polio (IPV/OPV) 2000-03-05 00:00:[address] [facility]AP 2000-03-05 00:00:[address] [facility] HIB 3 Dose Schedule 2000-03-05 00:00:[address] [facility] Hep B, Adol or Pedi Dosage 2000-03-05 00:00:[address] [facility] Polio (IPV/OPV) 2000-03-05 00:00:[address] [facility] DTAP 2000-03-05 00:00:[address] [facility] HIB 3 Dose Schedule 2000-03-05 00:00:[address] [facility] Hep B, Adol or Pedi Dosage 2000-03-05 00:00:[address] [facility] Polio (IPV/OPV) 2000-03-05 00:00:[address] [facility] DTAP 2000-03-05 00:00:[address] [facility] HIB 3 Dose Schedule 2000-03-05 00:00:[address] [facility] Hep B, Adol or Pedi Dosage 2000-03-05 00:00:[address] [facility] Polio (IPV/OPV) 2000-03-05 00:00:[address] [facility] DTAP 2000-03-05 00:00:[address] [facility] HIB 3 Dose Schedule 2000-03-05 00:00:[address] [facility] Hep B, Adol or Pedi Dosage 2000-03-05 00:00:[address] [facility] Polio (IPV/OPV) 2000-03-05 00:00:[address] [facility] DTAP 2000-03-05 00:00:[address] [facility] HIB 3 Dose Schedule 2000-03-05 00:00:[address] [facility] Hep B, Adol or Pedi Dosage 2000-03-05 00:00:[address] [facility] Polio (IPV/OPV) 2000-03-05 00:00:[address] [facility] DTAP 2000-03-05 00:00:[address] [facility] HIB 3 Dose Schedule 2000-03-05 00:00:[address] [facility] Hep B, Adol or Pedi Dosage 2000-03-05 00:00:[address] [facility] Polio (IPV/OPV) 2000-03-05 00:00:[address] [facility] DTAP 2000-03-05 00:00:[address] [facility] HIB 3 Dose Schedule 2000-03-05 00:00:[address] [facility] Hep B, Adol or Pedi Dosage 2000-03-05 00:00:[address] [facility] Polio (IPV/OPV) 2000-03-05 00:00:[address] [facility] DTAP 2000-03-05 00:00:[address] [facility] HIB 3 Dose Schedule 2000-03-05 00:00:[address] [facility] Hep B, Adol or Pedi Dosage 2000-03-05 00:00:[address] [facility] Polio (IPV/OPV) 2000-03-05 00:00:[address] [facility] HIB 3 Dose Schedule 1999 00:00:[address] [facility] Hep B, Adol or Pedi Dosage 1999 00:00:[address] [facility] Polio (IPV/OPV) 1999 00:00:[address] [facility] DTAP 1999 00:00:[address] [facility] HIB 3 Dose Schedule 1999 00:00:[address] [facility] Hep B, Adol or Pedi Dosage 1999 00:00:[address] [facility] Polio (IPV/OPV) 1999 00:00:[address] [facility] DTAP 1999 00:00:[address] [facility] HIB 3 Dose Schedule 1999 00:00:[address] [facility] Hep B, Adol or Pedi Dosage 1999 00:00:[address] [facility] Polio (IPV/OPV) 1999 00:00:[address] [facility] DTAP 1999 00:00:[address] [facility] HIB 3 Dose Schedule 1999 00:00:[address] [facility] Hep B, Adol or Pedi Dosage 1999 00:00:[address] [facility] Polio (IPV/OPV) 1999 00:00:[address] [facility] DTAP 1999 00:00:[address] [facility] HIB 3 Dose Schedule 1999 00:00:[address] [facility] Hep B, Adol or Pedi Dosage 1999 00:00:[address] [facility] Polio (IPV/OPV) 1999 00:00:[address] [facility] DTAP 1999 00:00:[address] [facility] HIB 3 Dose Schedule 1999 00:00:[address] [facility] Hep B, Adol or Pedi Dosage 1999 00:00:[address] [facility] Polio (IPV/OPV) 1999 00:00:[address] [facility] DTAP 1999 00:00:[address] [facility] HIB 3 Dose Schedule 1999 00:00:[address] [facility] Hep B, Adol or Pedi Dosage 1999 00:00:[address] [facility] Polio (IPV/OPV) 1999 00:00:[address] [facility] DTAP 1999 00:00:[address] [facility] HIB 3 Dose Schedule 1999 00:00:[address] [facility] Hep B, Adol or Pedi Dosage 1999 00:00:[address] [facility] Polio (IPV/OPV) 1999 00:00:[address] [facility] DTAP 1999 00:00:[address] [facility] HIB 3 Dose Schedule 1999 00:00:[address] [facility] Hep B, Adol or Pedi Dosage 1999 00:00:[address] [facility] Polio (IPV/OPV) 1999 00:00:[address] [facility] DTAP 1999 00:00:[address] [facility] HIB 3 Dose Schedule 1999 00:00:[address] [facility] Hep B, Adol or Pedi Dosage 1999 00:00:[address] [facility] Polio (IPV/OPV) 1999 00:00:[address] [facility] DTAP 1999 00:00:[address] [facility] HIB 3 Dose Schedule 1999 00:00:[address] [facility] Hep B, Adol or Pedi Dosage 1999 00:00:[address] [facility] Polio (IPV/OPV) 1999 00:00:[address] [facility] DTAP 1999 00:00:[address] [facility] HIB 3 Dose Schedule 1999 00:00:[address] [facility] Hep B, Adol or Pedi Dosage 1999 00:00:[address] [facility] Polio (IPV/OPV) 1999 00:00:[address] [facility] DTAP 1999 00:00:[address] [facility] HIB 3 Dose Schedule 1999 00:00:[address] [facility] Hep B, Adol or Pedi Dosage 1999 00:00:[address] [facility] Polio (IPV/OPV) 1999 00:00:[address] [facility] DTAP 1999 00:00:[address] [facility] HIB 3 Dose Schedule 1999 00:00:[address] [facility] Hep B, Adol or Pedi Dosage 1999 00:00:[address] [facility] Polio (IPV/OPV) 1999 00:00:[address] [facility] DTAP 1999 00:00:[address] [facility] HIB 3 Dose Schedule 1999 00:00:[address] [facility] Hep B, Adol or Pedi Dosage 1999 00:00:[address] [facility] Polio (IPV/OPV) 1999 00:00:[address] [facility] DTAP 1999 00:00:[address] [facility] HIB 3 Dose Schedule 1999 00:00:[address] [facility] Hep B, Adol or Pedi Dosage 1999 00:00:[address] [facility] Polio (IPV/OPV) 1999 00:00:[address] [facility] DTAP 1999 00:00:[address] [facility] HIB 3 Dose Schedule 1999 00:00:[address] [facility] Hep B, Adol or Pedi Dosage 1999 00:00:[address] [facility] Polio (IPV/OPV) 1999 00:00:[address] [facility] DTAP 1999 00:00:[address] [facility] HIB 3 Dose Schedule 1999 00:00:[address] [facility] Hep B, Adol or Pedi Dosage 1999 00:00:[address] [facility] Polio (IPV/OPV) 1999 00:00:[address] [facility] DTAP 1999 00:00:[address] [facility] HIB 3 Dose Schedule 1999 00:00:[address] [facility] Hep B, Adol or Pedi Dosage 1999 00:00:[address] [facility] Polio (IPV/OPV) 1999 00:00:[address] [facility] DTAP 1999 00:00:[address] [facility] HIB 3 Dose Schedule 1999 00:00:[address] [facility] Hep B, Adol or Pedi Dosage 1999 00:00:[address] [facility] Polio (IPV/OPV) 1999 00:00:[address] [facility] DTAP 1999 00:00:[address] [facility] HIB 3 Dose Schedule 1999 00:00:[address] [facility] Hep B, Adol or Pedi Dosage 1999 00:00:[address] [facility] Polio (IPV/OPV) 1999 00:00:[address] [facility] DTAP 1999 00:00:[address] [facility] HIB 3 Dose Schedule 1999 00:00:[address] [facility] Hep B, Adol or Pedi Dosage 1999 00:00:[address] [facility] Polio (IPV/OPV) 1999 00:00:[address] [facility] DTAP 1999 00:00:[address] [facility] HIB 3 Dose Schedule 1999 00:00:[address] [facility] Hep B, Adol or Pedi Dosage 1999 00:00:[address] [facility] Polio (IPV/OPV) 1999 00:00:[address] [facility] DTAP 1999 00:00:[address] [facility] HIB 3 Dose Schedule 1999 00:00:[address] [facility] Hep B, Adol or Pedi Dosage 1999 00:00:[address] [facility] Polio (IPV/OPV) 1999 00:00:[address] [facility] DTAP 1999 00:00:[address] [facility] HIB 3 Dose Schedule 1999 00:00:[address] [facility] Hep B, Adol or Pedi Dosage 1999 00:00:[address] [facility] Polio (IPV/OPV) 1999 00:00:[address] [facility] DTAP 1999 00:00:[address] [facility] HIB 3 Dose Schedule 1999 00:00:[address] [facility] Hep B, Adol or Pedi Dosage 1999 00:00:[address] [facility] Polio (IPV/OPV) 1999 00:00:[address] [facility] DTAP 1999 00:00:[address] [facility] HIB 3 Dose Schedule 1999 00:00:[address] [facility] Hep B, Adol or Pedi Dosage 1999 00:00:[address] [facility] Polio (IPV/OPV) 1999 00:00:[address] [facility] DTAP 1999 00:00:[address] [facility] HPV9 Unknown Completed [facility] HPV Unknown Completed [facility] DTAP Unknown Completed [facility] DTAP Unknown Completed [facility] DTAP Unknown Completed [facility] DTAP Unknown Completed [facility] HIB 3 Dose Schedule Unknown Completed [facility] HIB 3 Dose Schedule Unknown Completed [facility] HIB 3 Dose Schedule Unknown Completed [facility] HEPATITIS A Unknown Completed [facility] Hep B, Adol or Pedi Dosage Unknown Completed [facility] Hep B, Adol or Pedi Dosage Unknown Completed [facility] Hep B, Adol or Pedi Dosage Unknown Completed [facility] Meningococcal Vaccine Unknown Completed [facility] Meningococcal Vaccine Unknown Completed [facility] MMR Unknown Completed [facility] MMR Unknown Completed [facility] Pneumococcal 13 Conjugate, PCV13 (Prevnar 13) Unknown Completed [facility] Polio (IPV/OPV) Unknown Completed [facility] Polio (IPV/OPV) Unknown Completed [facility] Polio (IPV/OPV) Unknown Completed [facility] Polio (IPV/OPV) Unknown Completed [facility] TDAP Unknown Completed [facility] Varicella (varivax)(chicken pox) Unknown Completed [facility] Varicella (varivax)(chicken pox) Unknown Completed [facility] HPV9 Unknown Completed [facility] HPV Unknown Completed [facility] DTAP Unknown Completed [facility] DTAP Unknown Completed [facility] DTAP Unknown Completed [facility] DTAP Unknown Completed [facility] HIB 3 Dose Schedule Unknown Completed [facility] HIB 3 Dose Schedule Unknown Completed [facility] HIB 3 Dose Schedule Unknown Completed [facility] HEPATITIS A Unknown Completed [facility] Hep B, Adol or Pedi Dosage Unknown Completed [facility] Hep B, Adol or Pedi Dosage Unknown Completed [facility] Hep B, Adol or Pedi Dosage Unknown Completed [facility] Meningococcal Vaccine Unknown Completed [facility] Meningococcal Vaccine Unknown Completed [facility] MMR Unknown Completed [facility] MMR Unknown Completed [facility] Pneumococcal 13 Conjugate, PCV13 (Prevnar 13) Unknown Completed [facility] Polio (IPV/OPV) Unknown Completed [facility] Polio (IPV/OPV) Unknown Completed [facility] Polio (IPV/OPV) Unknown Completed [facility] Polio (IPV/OPV) Unknown Completed [facility] TDAP Unknown Completed [facility] Varicella (varivax)(chicken pox) Unknown Completed [facility] Varicella (varivax)(chicken pox) Unknown Completed [facility] HPV9 Unknown Completed [facility] HPV Unknown Completed [facility] DTAP Unknown Completed [facility] DTAP Unknown Completed [facility] DTAP Unknown Completed [facility] DTAP Unknown Completed [facility] HIB 3 Dose Schedule Unknown Completed [facility] HIB 3 Dose Schedule Unknown Completed [facility] HIB 3 Dose Schedule Unknown Completed [facility] HEPATITIS A Unknown Completed [facility] Hep B, Adol or Pedi Dosage Unknown Completed [facility] Hep B, Adol or Pedi Dosage Unknown Completed [facility] Hep B, Adol or Pedi Dosage Unknown Completed [facility] Meningococcal Vaccine Unknown Completed [facility] Meningococcal Vaccine Unknown Completed [facility] MMR Unknown Completed [facility] MMR Unknown Completed [facility] Pneumococcal 13 Conjugate, PCV13 (Prevnar 13) Unknown Completed [facility] Polio (IPV/OPV) Unknown Completed [facility] Polio (IPV/OPV) Unknown Completed [facility] Polio (IPV/OPV) Unknown Completed [facility] Polio (IPV/OPV) Unknown Completed [facility] TDAP Unknown Completed [facility] Varicella (varivax)(chicken pox) Unknown Completed [facility] Varicella (varivax)(chicken pox) Unknown Completed [facility] HPV9 Unknown Completed [facility] HPV Unknown Completed [facility] DTAP Unknown Completed [facility] DTAP Unknown Completed [facility] DTAP Unknown Completed [facility] DTAP Unknown Completed [facility] HIB 3 Dose Schedule Unknown Completed [facility] HIB 3 Dose Schedule Unknown Completed [facility] HIB 3 Dose Schedule Unknown Completed [facility] HEPATITIS A Unknown Completed [facility] Hep B, Adol or Pedi Dosage Unknown Completed [facility] Hep B, Adol or Pedi Dosage Unknown Completed [facility] Hep B, Adol or Pedi Dosage Unknown Completed [facility] Meningococcal Vaccine Unknown Completed [facility] Meningococcal Vaccine Unknown Completed [facility] MMR Unknown Completed [facility] MMR Unknown Completed [facility] Pneumococcal 13 Conjugate, PCV13 (Prevnar 13) Unknown Completed [facility] Polio (IPV/OPV) Unknown Completed [facility] Polio (IPV/OPV) Unknown Completed [facility] Polio (IPV/OPV) Unknown Completed [facility] Polio (IPV/OPV) Unknown Completed [facility] TDAP Unknown Completed [facility] Varicella (varivax)(chicken pox) Unknown Completed [facility] Varicella (varivax)(chicken pox) Unknown Completed [facility] HPV9 Unknown Completed [facility] HPV Unknown Completed [facility] DTAP Unknown Completed [facility] DTAP Unknown Completed [facility] DTAP Unknown Completed [facility] DTAP Unknown Completed [facility] HIB 3 Dose Schedule Unknown Completed [facility] HIB 3 Dose Schedule Unknown Completed [facility] HIB 3 Dose Schedule Unknown Completed [facility] HEPATITIS A Unknown Completed [facility] Hep B, Adol or Pedi Dosage Unknown Completed [facility] Hep B, Adol or Pedi Dosage Unknown Completed [facility] Hep B, Adol or Pedi Dosage Unknown Completed [facility] Meningococcal Vaccine Unknown Completed [facility] Meningococcal Vaccine Unknown Completed [facility] MMR Unknown Completed [facility] MMR Unknown Completed [facility] Pneumococcal 13 Conjugate, PCV13 (Prevnar 13) Unknown Completed [facility] Polio (IPV/OPV) Unknown Completed [facility] Polio (IPV/OPV) Unknown Completed [facility] Polio (IPV/OPV) Unknown Completed [facility] Polio (IPV/OPV) Unknown Completed [facility] TDAP Unknown Completed [facility] Varicella (varivax)(chicken pox) Unknown Completed [facility] Varicella (varivax)(chicken pox) Unknown Completed [facility] Vital Signs Vital Name Observation Time Observation Value Comments S ource Systolic blood pressure 2023-01-21 04:29:00 144 mm[Hg] [facility] Diastolic blood pressure 2023-01-21 04:29:00 98 mm[Hg] [facility] Heart rate 2023-01-21 04:29:00 90 /min [facility] Body temperature 2023-01-21 04:29:[address] [facility] Respiratory rate 2023-01-21 04:29:00 18 /min [facility] Body height 2023-01-21 04:29:00 162.6 cm [facility] Body weight 2023-01-21 04:29:00 96.026 kg [facility] BMI 2023-01-21 04:29:00 36.34 kg/m2 [facility] Oxygen saturation in Arterial blood by Pulse oximetry 2023-01-21 04:29:00 100 /min [facility] Oxygen saturation in Arterial blood by Pulse oximetry 2022-11-27 03:20:00 100 /min [facility] Systolic blood pressure 2022-11-27 03:20:00 139 mm[Hg] [facility] Diastolic blood pressure 2022-11-27 03:20:00 92 mm[Hg] [facility] Heart rate 2022-11-27 03:20:00 80 /[facility] 2022-11-27 03:20:[address] [facility] Respiratory rate 2022-11-27 03:20:00 15 /min [facility] Body height 2022-11-27 03:20:00 162.6 cm [facility] Body weight 2022-11-27 03:20:00 96.163 kg [facility] BMI 2022-11-27 03:20:00 36.39 kg/m2 [facility] Heart rate 2022-07-02 16:04:00 87 /min [facility] Body temperature 2022-07-02 16:04:[address] [facility] Respiratory rate 2022-07-02 16:04:00 22 /min [facility] Body height 2022-07-02 16:04:00 165.1 cm [facility] Body weight 2022-07-02 16:04:00 101.833 kg [facility] BMI 2022-07-02 16:04:00 37.36 kg/m2 [facility] Oxygen saturation in Arterial blood by Pulse oximetry 2022-07-02 16:04:00 99 /min [facility] Systolic blood pressure 2021-09-13 07:00:00 121 mm[Hg] [facility] Diastolic blood pressure 2021-09-13 07:00:00 84 mm[Hg] [facility] Heart rate 2021-09-13 07:00:00 98 /min [facility] Respiratory rate 2021-09-13 07:00:00 20 /min [facility] Oxygen saturation in Arterial blood by Pulse oximetry 2021-09-13 07:00:00 98 /min [facility] Body temperature 2021-09-13 05:34:[address] [facility] Body height 2021-09-13 05:34:00 162.6 cm [facility] Body weight 2021-09-13 05:34:00 111.131 kg [facility] BMI 2021-09-13 05:34:00 42.05 kg/m2 [facility] Systolic blood pressure 2020-12-31 20:48:00 127 mm[Hg] [facility] Diastolic blood pressure 2020-12-31 20:48:00 96 mm[Hg] [facility] Heart rate 2020-12-31 20:48:00 83 /min [facility] Body temperature 2020-12-31 20:48:[address] [facility] Respiratory rate 2020-12-31 20:48:00 18 /min [facility] Body weight 2020-12-31 20:48:00 110.678 kg [facility] BMI 2020-12-31 20:48:00 41.88 kg/m2 [facility] Oxygen saturation in Arterial blood by Pulse oximetry 2020-12-31 20:48:00 100 /min [facility] Systolic blood pressure 2020-11-07 14:46:00 126 mm[Hg] [facility] Diastolic blood pressure 2020-11-07 14:46:00 76 mm[Hg] [facility] Heart rate 2020-11-07 14:46:00 92 /min [facility] Body temperature 2020-11-07 14:46:[address] [facility] Respiratory rate 2020-11-07 14:46:00 24 /min [facility] Body height 2020-11-07 14:46:00 162.6 cm [facility] Body weight 2020-11-07 14:46:00 113.581 kg [facility] BMI 2020-11-07 14:46:00 42.98 kg/m2 [facility] Systolic blood pressure 2020-10-17 18:10:00 119 mm[Hg] [facility] Diastolic blood pressure 2020-10-17 18:10:00 72 mm[Hg] [facility] Heart rate 2020-10-17 18:10:00 99 /min [facility] Body temperature 2020-10-17 18:10:[address] [facility] Respiratory rate 2020-10-17 18:10:00 16 /min [facility] Body height 2020-10-17 18:10:00 162.6 cm [facility] Body weight 2020-10-17 18:10:00 117.113 kg [facility] BMI 2020-10-17 18:10:00 44.32 kg/m2 [facility] Systolic blood pressure 2020-08-09 06:00:00 136 mm[Hg] [facility] Diastolic blood pressure 2020-08-09 06:00:00 75 mm[Hg] [facility] Heart rate 2020-08-09 06:00:00 93 /min [facility] Respiratory rate 2020-08-09 06:00:00 18 /min [facility] Oxygen saturation in Arterial blood by Pulse oximetry 2020-08-09 06:00:00 92 /min [facility] Body temperature 2020-08-09 05:00:[address] [facility] Body height 2020-08-09 05:00:00 162.6 cm [facility] Body weight 2020-08-09 05:00:00 114.306 kg [facility] BMI 2020-08-09 05:00:00 43.26 kg/m2 [facility] Systolic blood pressure 2020-01-08 07:00:00 137 mm[Hg] [facility] Diastolic blood pressure 2020-01-08 07:00:00 82 mm[Hg] [facility] Heart rate 2020-01-08 07:00:00 80 /min [facility] Body temperature 2020-01-08 07:00:[address] [facility] Respiratory rate 2020-01-08 07:00:00 11 /min [facility] Oxygen saturation in Arterial blood by Pulse oximetry 2020-01-08 07:00:00 95 /min [facility] Body weight 2020-01-08 05:39:00 108.863 kg [facility] Systolic blood pressure 2020-01-08 07:00:00 137 mm[Hg] [place] [facility] Diastolic blood pressure 2020-01-08 07:00:00 82 mm[Hg] [place] [facility] Heart rate 2020-01-08 07:00:00 80 /min [facility] Body temperature 2020-01-08 07:00:[address] [facility] Respiratory rate 2020-01-08 07:00:00 11 /min [facility] Oxygen saturation in Arterial blood by Pulse oximetry 2020-01-08 07:00:00 95 /min [place] [facility] Body weight 2020-01-08 05:39:00 108.863 kg [facility] Procedures Procedure Date / Time Performed Performing Clinicia n Source URINALYSIS 2023-01-21 06:04:00 Corey Ledezma [facility] POCT TEST 2023-01-21 06:04:[address] [facility] CONSENT/REFUSAL FOR DIAGNOSIS AND TREATMENT 2023-01-21 04:16:58 Doctor Unassigned, [place] [facility] POCT TEST 2022-11-27 05:32:[address] [facility] URINALYSIS 2022-11-27 05:31:00 Alvaro Herndon [facility] LACTIC ACID WHOLE BLOOD 2022-11-27 05:17:[address] [facility] LIPASE 2022-11-27 05:16:00 Alvaro Herndon [facility] TEST, SERUM 2022-11-27 05:16:[address] [facility] COMP. METABOLIC PANEL (94692) 2022-11-27 05:16:[address] [facility] CBC WITH DIFF 2022-11-27 05:16:00 Alvaro Herndon [facility] ASSIGNMENT OF BENEFITS 2022-11-27 04:54:06 Docto r Unassigned, [place] [facility] CONSENT/REFUSAL FOR DIAGNOSIS AND TREATMENT 2022-11-27 03:16:23 Doctor Unassigned, [place] [facility] XR SPINE THORACIC 2 VW 2022-07-02 18:53:[address] [facility] XR ELBOW >3 VW LEFT 2022-07-02 18:53:[address] [facility] CONSENT/REFUSAL FOR DIAGNOSIS AND TREATMENT 2022-07-02 15:56:23 Doctor Unassigned, [place] [facility] CONSENT/REFUSAL FOR DIAGNOSIS AND TREATMENT 2021-09-13 05:29:08 Doctor Unassigned, [place] [facility] NOTICE OF PRIVACY PRACTICES 2021-09-13 05:28:35 Doctor Unassigned, [place] [facility] POCT TEST 2020-12-31 21:04:[address] [facility] URINALYSIS 2020-12-31 20:58:00 Alvaro Herndon [facility] CONSENT/REFUSAL FOR DIAGNOSIS AND TREATMENT 2020-12-31 20:17:00 Doctor Unassigned, [place] [facility] POCT TEST 2020-10-17 19:59:[address] [facility] GARDASIL 9 (HPV 9V) VACCINE 2020-10-17 19:16:[address] [facility] CONSENT/REFUSAL FOR DIAGNOSIS AND TREATMENT 2020-10-17 17:25:15 Doctor Unassigned, [place] [facility] ASSIGNMENT OF BENEFITS 2020-10-17 17:24:54 Docto r Unassigned, [place] [facility] BASIC METABOLIC PANEL (NA, K, CL, CO2, GLUCOSE, BUN, CREATININE, CA) 2020-08-09 05:20:[address] [facility] CBC WITH DIFF 2020-08-09 05:20:00 [facility] 2020-08-09 05:05:[address] [facility] URINALYSIS 2020-08-09 05:03:00 [facility] NOTICE OF PRIVACY PRACTICES 2020-08-09 04:47:00 Doctor Unassigned, [place] [facility] CONSENT/REFUSAL FOR DIAGNOSIS AND TREATMENT 2020-08-09 04:46:34 Doctor Unassigned, [place] [facility] XR CHEST 1 VW 2020-01-08 06:19:33 El Hussein [facility] LIPASE 2020-01-08 06:14:00 El Hussein [facility] TROPONIN I 2020-01-08 06:14:00 El Hussein [facility] HEPATIC FUNCTION PANEL (70444) (ALB,T.PRO,BILI T,BU/BC,ALT,AST,ALK PHOS) 2020-01-08 06:14:[address] [facility] BASIC METABOLIC PANEL (NA, K, CL, CO2, GLUCOSE, BUN, CREATININE, CA) 2020-01-08 06:14:[address] [facility] CBC WITH DIFF 2020-01-08 06:14:00 El Hussein [facility] URINALYSIS 2020-01-08 06:14:00 El Hussein [facility] POCT TEST 2020-01-08 06:13:[address] [facility] EKG-12 LEAD 2020-01-08 05:54:25 El Hussein [facility] Encounters Start Date/Time End Date/Time Encounter Type Admission Type Attending Clinicians Care Facility Care Department Encounter ID Source 2021-04-02 12:16:56 Emergency [facility] [id number] [facility] 2023-01-20 23:32:00 2023-01-21 02:45:00 Emergency X Corey LEDEZMA [facility] ERT [id number] [facility] 2023-01-20 23:32:00 2023-01-21 02:45:00 Emergency Corey Ledezma Tracey [facility] 1..840.114 350.1.13.10 4.2.7.2.686 [id number] [facility] 2023-01-21 00:00:00 2023-01-21 00:00:00 Patient Secure Msg Doctor Unassigned, [place] [facility] 1..840.114 350.1.13.10 4.2.7.2.686 [id number] [facility] 2023-01-01 00:00:00 2023-01-01 00:00:00 Letter (Out) Clinic, [facility] Gastroenter ology [facility] 1.2.840.114 350.1.13.10 4.2.7.2.686 [id number] [facility] 2022-12-30 00:00:00 2022-12-30 00:00:00 Patient Secure Msg Doctor Unassigned, [place] [facility] 1.2.840.114 350.1.13.10 4.2.7.2.686 [id number] [facility] 2022-11-26 22:37:00 2022-11-27 02:15:00 Emergency X YANICK [facility] ERT [id number] [facility] 2022-11-26 22:37:00 2022-11-27 02:15:00 Emergency Yanick Alvaro [facility] 1.2.840.114 350.1.13.10 4.2.7.2.686 [id number] [id number] [facility] 2022-11-26 00:00:00 2022-11-26 00:00:00 Orders Only Doctor Unassigned, [place] [facility] 1.2.840.114 350.1.13.10 4.2.7.2.686 [id number] [id number] [facility] 2022-10-16 14:28:32 2022-10-16 14:28:32 Outpatient [facility] [id number] Eulogio Alcantar 2022-07-02 10:07:00 2022-07-02 14:07:00 Emergency X PRAKASH ALLAN [facility] ERT [id number] [facility] 2022-07-02 10:07:00 2022-07-02 14:07:00 Emergency Prakash Allan [facility] 1.2.840.114 350.1.13.10 4.2.7.2.686 [id number] [facility] 2022-07-02 00:00:00 2022-07-02 00:00:00 Orders Only Doctor Unassigned, [place] [facility] 1.2.840.114 350.1.13.10 4.2.7.2.686 [id number] [id number] [facility] 2021-09-13 00:42:00 2021-09-13 02:04:00 Emergency X PRAKASH ALLAN [facility] ERT [id number] [facility] 2021-09-13 00:42:00 2021-09-13 02:04:00 Emergency Prakash Allan [facility] 1.2.840.114 350.1.13.10 4.2.7.2.686 [id number] [facility] 2021-03-02 00:00:00 2021-03-02 00:00:00 Telephone Felipa Briseno [facility] ICT TRAINER [facility] 1.2.840.114 350.1.13.10 4.2.7.2.686 [id number] 107 [id number] [facility] 2021-02-19 08:15:00 2021-02-19 08:15:00 Outpatient R FELIPA BRISENO [facility] [id number] [facility] 2021-02-06 10:30:00 2021-02-06 10:30:00 Outpatient FELIPA TOM [facility] [id number] [facility] 2020-12-31 16:05:00 2020-12-31 18:56:00 Emergency Annabella Samayoa [facility] 1.2.840.114 350.1.13.10 4.2.7.2.686 [id number] [facility] 2020-12-25 00:00:00 2020-12-25 00:00:00 Telephone Felipa Briseno [facility] ICT TRAINER [facility] & CHILD [facility] 1.2.840.114 350.1.13.10 4.2.7.2.686 [id number] 107 [id number] [facility] 2020-12-24 00:00:00 2020-12-24 00:00:00 Nurse Triage [facility] [place] [facility] 1.2840.114 350.1.13.10 4.2.7.2.686 [id number] [facility] 2020-11-13 00:00:00 2020-11-13 00:00:00 Patient Secure Msg Felipa Briseno [facility] ICT TRAINER [facility] & CHILD [facility] 1.2840.114 350.1.13.10 4.2.7.2.686 [id number] 107 [id number] [facility] 2020-11-07 09:33:35 2020-11-07 11:41:19 Office Visit Felipa Briseno [facility] ICT TRAINER [facility]ILD [facility] 1.2840.114 350.1.13.10 4.2.7.2.686 [id number] 107 [id number] [facility] 2020-11-07 09:30:00 2020-11-07 09:30:00 Outpatient R FELIPA BRISENO [facility] [id number] [facility] 2020-11-03 00:00:00 2020-11-03 00:00:00 Telephone Felipa Briseno [facility] ICT TRAINER [facility]ILD [facility] 1.2.840.114 350.1.13.10 4.2.7.2.686 [id number] 107 [id number] [facility] 2020-11-02 00:00:00 2020-11-02 00:00:00 Telephone Felipa Briseno [facility] ICT TRAINER [facility] & [facility]ILD [facility] 1.2.840.114 350.1.13.10 4.2.7.2.686 [id number] 107 [id number] [facility] 2020-11-01 00:00:00 2020-11-01 00:00:00 Patient Secure Msg Roque Brisenoilola Mayuri [facility] ICT TRAINER [facility] & CHILD [facility] 1.2.840.114 350.1.13.10 4.2.7.2.686 [id number] 107 [id number] [facility] 2020-11-01 00:00:00 2020-11-01 00:00:00 Refill Felipa Briseno [facility] ICT TRAINER [facility] CHILD [facility] 1.2.840.114 350.1.13.10 4.2.7.2.686 [id number] 107 [id number] [facility] 2020-11-01 00:00:00 2020-11-01 00:00:00 Letter (Out) Jake Jonas [facility] 1.2840.114 350.1.13.10 4.2.7.2.686 [id number] [facility] 2020-10-27 15:30:00 2020-10-27 15:30:00 Outpatient R [facility] [id number] [facility] 2020-10-23 00:00:00 2020-10-23 00:00:00 Patient Secure Msg Abrahamidalia Felipa Messina [facility] ICT TRAINER [facility] & CHILD [facility] 1.2.840.114 350.1.13.10 4.2.7.2.686 [id number] 107 [id number] [facility] 2020-10-19 00:00:00 2020-10-19 00:00:00 Telephone Felipa Briseno [facility] ICT TRAINER [facility] & [facility]ILD [facility] 1.2.840.114 350.1.13.10 4.2.7.2.686 [id number] 107 [id number] [facility] 2020-10-17 12:46:36 2020-10-17 14:56:59 Office Visit Roque Brisenopasquale Messina [facility] ICT TRAINER [facility] 1.2.840.114 350.1.13.10 4.2.7.2.686 [id number] [facility] 2020-10-17 13:00:00 2020-10-17 13:00:00 Outpatient R FELIPA BRISENO [facility] [id number] [facility] 2020-10-17 00:00:00 2020-10-17 00:00:00 Orders Only Doctor Unassigned, [place] [facility] 1.2.840.114 350.1.13.10 4.2.7.2.686 [id number] [facility] 2020-08-08 22:53:00 2020-08-09 01:02:00 Emergency Morena Benton [facility] 1.2.840.114 350.1.13.10 4.2.7.2.686 [id number] [facility] 2020-08-08 22:53:00 2020-08-08 22:53:00 Emergency X MORENA BENTON [facility] ERT [id number] [facility] 2020-08-08 00:00:00 2020-08-08 00:00:00 Orders Only Doctor Unassigned, [place] [facility] 1.2.840.114 350.1.13.10 4.2.7.2.686 [id number] [facility] 2020-01-08 00:31:00 2020-01-08 02:30:00 Emergency El Hussein [facility] 1.2.840.114 350.1.13.10 4.2.7.2.686 [id number] [id number] [facility] 2020-01-08 00:31:00 2020-01-08 02:30:00 Emergency El Hussein [facility] 1.2.840.114 350.1.13.10 4.2.7.2.686 [id number] 2020-01-08 00:31:00 2020-01-08 00:31:00 Emergency X EL HUSSEIN [facility] ERT [id number] [facility] Results Test Description Test Time Test Comments Results Result Co mments Source [facility] [id number] 05:39:07* Test Item Value Reference Range Interpretation Comme nts LACTIC ACID (test code = 8795651214) 1.37 mmol/L 0.50-2.20 Lab Interpretation (test cod e = 29051-8) Normal [facility] [id number] 05:32:00* Test Item Value Reference Range Interpretation Comme nts POCT PREG (test code = 1605) Negative On board controls acceptable with C Line (test code = 3574) Yes POCT PREG LOT # (test code = 3570) [id number] POCT PREG TEST DATE ( test code = 3576) 03/07/2024 Lab Interpretation (test cod e = 08946-0) Normal [facility] 21:40:37* Test Item Value Reference Range Interpretation Comme nts APPEARANCE (test code = 2188203850) Hazy Clear A COLOR (test code = 5169537577) Yellow Yellow PH (test code = 7536417256) 4.8-8.0 SP GRAVITY (test code = 0436251219) 1.003-1.030 GLU U QUAL (test code = 6473009717) Normal Normal BLOOD (test code = 3525737583) 2+ Negative A KETONES (test code = 4304244679) Negative Negative PROTEIN (test code = 2887-8) Negative Negative UROBILIN (test code = 2577841574) Normal Normal BILIRUBIN (test code = 0146240239) Negative Negative NITRITE (test code = 2567151845) Negative Negative LEUK MAXIMINO (test code = 7910675769) Negative Negative RBC/HPF (test code = 7107519318) See_Comment [Automated messa ge] The system which generated this result transmitted reference range: 0 - 3 HPF. The reference range was not used to interpret this result as normal/abnormal. WBC/HPF (test code = 0366128071) See_Comment [Automated messa ge] The system which generated this result transmitted reference range: 0 - 5 HPF. The reference range was not used to interpret this result as normal/abnormal. BACTERIA (test code = 6870423341) Few Negative A MUCOUS (test code = 3205912055) Slight Negative LPF A SQ EPITH (test code = 7068103479) HPF HYAL CAST (test code = 9551814446) See_Comment [Automated messa ge] The system which generated this result transmitted reference range: <=2 LPF. The reference range was not used to interpret this result as normal/abnormal. Lab Interpretation (test code = 04872-9) Abnormal [facility] [id number] 21:04:00* Test Item Value Reference Range Interpretation Comme nts POCT PREG (test code = 1605) negative On board controls acceptable with C Line (test code = 3574) present POCT PREG LOT # (test code = 3575) [id number] POCT PREG TEST DATE ( test code = 3576) 06/01/2022 Lab Interpretation (test cod e = 94612-7) Normal [facility] [id number] 20:00:00* Test Item Value Reference Range Interpretation Comme nts POCT PREG (test code = 1605) Negative On board controls acceptable with C Line (test code = 3574) Yes POCT PREG LOT # (test code = 3575) POCT PREG TEST DATE ( test code = 3576) [facility] [id number] 20:00:00* Test Item Value Reference Range Interpretation Comme nts POCT PREG (test code = 1605) Negative On board controls acceptable with C Line (test code = 3574) Yes POCT PREG LOT # (test code = 3575) POCT PREG TEST DATE ( test code = 3576) [facility] 05:59:35* Test Item Value Reference Range Interpretation Comme nts APPEARANCE (test code = 9180400497) Clear Clear COLOR (test code = 7977313856) Yellow Yellow PH (test code = 4338872333) 4.8-8.0 SP GRAVITY (test code = 6570258326) 1.003-1.030 GLU U QUAL (test code = 2759117932) Normal Normal BLOOD (test code = 6219846019) 1+ Negative A KETONES (test code = 0201050216) Negative Negative PROTEIN (test code = 2887-8) Negative Negative UROBILIN (test code = 0798049169) Normal Normal BILIRUBIN (test code = 8806938836) Negative Negative NITRITE (test code = 7144509487) Negative Negative LEUK MAXIMINO (test code = 0620449289) Negative Negative RBC/HPF (test code = 5414083843) See_Comment [Automated ExtendEventa ge] The system which generated this result transmitted reference range: 0 - 3 HPF. The reference range was not used to interpret this result as normal/abnormal. WBC/HPF (test code = 4667883121) See_Comment [Automated ExtendEventa ge] The system which generated this result transmitted reference range: 0 - 5 HPF. The reference range was not used to interpret this result as normal/abnormal. BACTERIA (test code = 5524755905) Few Negative A MUCOUS (test code = 4031927031) Slight Negative LPF A SQ EPITH (test code = 9656830489) HPF Lab Interpretation (test code = 62327-5) Abnormal [facility] Metabolic Panel (NA, K, CL, CO2, GLUCOSE, BUN, CREATININE, CA)2020-08-09 05:38:20* Test Item Value Reference Range Interpretation Comme nts NA (test code = 2869486413) 137 mmol/L 135-145 K (test code = 2503901730) 3.8 mmol/L 3.5-5.0 CL (test code = 8076257473) 102 mmol/L 98-108 CO2 TOTAL (test code = 2095303656) 26 mmol/L 23-31 AGAP (test code = 1459479646) 2-16 BUN (test code = 9493595654) 9 mg/dL 7-23 GLUCOSE (test code = 2496520748) 83 mg/dL 70-110 CREATININE (test code = 3035469789) 0.67 mg/dL 0.50-1.04 CALCIUM (test code = 0822378988) 9.4 mg/dL 8.6-10.6 eGFR Calculation (Non-) (test code = 7385496613) mL/min/1.73m2 eGFR Calculation () (test code = 9339810444) mL/min/1.73m2 AVA (test code = AVA) Association [...] or urine or abnormalities in imaging tests). [facility] [id number] 05:05:00* Test Item Value Reference Range Interpretation Comme nts POCT PREG (test code = 1605) neg On board controls acceptable with C Line (test code = 3574) yes POCT PREG LOT # (test code = 3575) [id number] POCT PREG TEST DATE ( test code = 3576) 04/01/2022 Lab Interpretation (test cod e = 45046-1) Normal [facility] [id number] 06:59:00* Test Item Value Reference Range Interpretation Comme nts TROPONIN I (test code = 3812025376) <0.012 See_Comment [Automated message] The system which [...] biotin. ? Lab Interpretation (test code = 36889-1) Normal [facility] (NA, K, CL, CO2, GLUCOSE, BUN, CREATININE, CA)2020-01-08 06:48:00* Test Item Value Reference Range Interpretation Comme nts NA (test code = 2044523572) 138 mmol/L 135-145 K (test code = 3996692048) 4.0 mmol/L 3.5-5 CL (test code = 4900815165) 106 mmol/L 98-108 CO2 TOTAL (test code = 0943656417) 24 mmol/L 23-31 AGAP (test code = 3065914716) 2-16 BUN (test code = 2569938302) 10 mg/dL 7-23 GLUCOSE (test code = 5511922085) 91 mg/dL 70-110 CREATININE (test code = 6301701583) 0.64 mg/dL 0.5-1.04 CALCIUM (test code = 3188873473) 9.3 mg/dL 8.6-10.6 eGFR Calculation (Non-) (test code = 7019713048) mL/min/1.73m2 eGFR Calculation () (test code = 8043306693) mL/min/1.73m2 AVA (test code = AVA) Association [...] or urine or abnormalities in imaging tests). [facility] (ALB, T.PRO, BILI T, BU/BC, ALT, AST, ALK PHOS)2020-01-08 06:48:00* Test Item Value Reference Range Interpretation Comme nts TOTAL BILI (test code = 5926930407) 0.2 mg/dL 0.1-1.1 BILI UNCON (test code = 8885159256) 0.4 mg/dL 0.1-1.1 BILI CONJ (test code = 4997018596) 0.0 mg/dL 0-0.3 T PROTEIN (test code = 4432577778) 7.4 g/dL 6.3-8.2 ALBUMIN (test code = 9936805435) 4.6 g/dL 3.5-5 ALK PHOS (test code = 7445423449) 45 U/L 34-122 ALTv (test code = 1742-6) 22 U/L 5-35 AST(SGOT) (test code = 1148623456) 27 U/L 13-40 Lab Interpretation (test cod e = 90890-2) Normal [facility] [id number] 06:48:00* Test Item Value Reference Range Interpretation Comme nts LIPASE (test code = 0214930820) 78 U/L 0-220 Lab Interpretation (test cod e = 86793-5) Normal [facility]2020-08-08 06:41:00* Test Item Value Reference Range Interpretation Comme nts APPEARANCE (test code = 0758559976) Clear Clear COLOR (test code = 7434816211) Colorless Yellow A PH (test code = 4011289968) 4.8-8.0 SP GRAVITY (test code = 7891761549) 1.003-1.030 GLU U QUAL (test code = 9126408959) Normal Normal BLOOD (test code = 6357929896) 1+ Negative A KETONES (test code = 1627293599) Negative Negative PROTEIN (test code = 2887-8) Negative Negative UROBILIN (test code = 4874321244) Normal Normal BILIRUBIN (test code = 4133250790) Negative Negative NITRITE (test code = 5504613390) Negative Negative LEUK MAXIMINO (test code = 2680574323) Negative Negative RBC/HPF (test code = 6841022296) See_Comment [Automated ExtendEventa JobOn] The system which generated this result transmitted reference range: 0 - 3 HPF. The reference range was not used to interpret this result as normal/abnormal. WBC/HPF (test code = 2551991800) See_Comment [Automated ExtendEventa [employer]On] The system which generated this result transmitted reference range: 0 - 5 HPF. The reference range was not used to interpret this result as normal/abnormal. BACTERIA (test code = 8207280462) Few Negative A SQ EPITH (test code = 1033083836) HPF Lab Interpretation (test code = 40106-3) Abnormal [facility] with Pbpkfosmprkl0675-09-97 06:31:00* Test Item Value Reference Range Interpretation [...] 33.5 g/dL 31.6-35.1 RDW-SD (test code = 37779-1) 39.7 fL 39-49.9 RDW-CV (test code = 788-0) 13.2 % 12-15.5 PLT (test code = 777-3) See_Comment H [Automated messa ge] The system which generated this result transmitted reference range: 166 - 358 10*3/?L. The reference range was not used to interpret this result as normal/abnormal. MPV (test code = 08621-2) 10.2 fL 9.5-12.9 NRBC/100 WBC (test code = 2459315251) See_Comment [Automated PerfectPost ssage] The system which generated this result transmitted reference range: 0.0 - 10.0 /100 WBCs. The reference range was not used to interpret this result as normal/abnormal. NRBC x10^3 (test code = 2048671037) <0.01 See_Comment [Automated messa ge] The system which generated this result transmitted reference range: 10*3/?L. The reference range was not used to interpret this result as normal/abnormal. GRAN MAT (NEUT) % (test code = 770-8) 48.6 % IMM GRAN % (test code = 9999037108) 0.60 % LYMPH % (test code = 736-9) 41.9 % MONO % (test code = 5905-5) 6.3 % EOS % (test code = 713-8) 2.2 % BASO % (test code = 706-2) 0.4 % GRAN MAT x10^3(ANC) (test code = 9281715251) 5.09 10*3/uL 1.88-7.09 IMM GRAN x10^3 (test code = 8711972859) 0.06 10*3/uL 0-0.06 LYMPH x10^3 (test code = 731-0) 4.38 10*3/uL 1.32-3.29 H MONO x10^3 (test code = 742-7) 0.66 10*3/uL 0.33-0.92 EOS x10^3 (test code = 711-2) 0.23 10*3/uL 0.03-0.39 BASO x10^3 (test code = 704-7) 0.04 10*3/uL 0.01-0.07 Lab Interpretation (test code = 79092-0) [id number]* Test Item Value Reference Range Interpretation Comme nts POCT PREG (test code = 1605) negative On board controls acceptable with C Line (test code = 3574) positive POCT PREG LOT # (test code = [id number]) [id number] POCT PREG TEST DATE ( test code = 3576) Lab Interpretation (test cod e = 05662-7) Normal [facility] Notes Date/Time Note Provider Source 2023-01-21 02:43:25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
--- NOTE | 2023-09-15 20:15 | ER ---
Nurse's Notes [facility] Name: Gisele Tilley Age: 23 yrs Sex: Female : 2000 Arrival Date: 09/15/2023 Time: 18:45 Bed 7 Private MD: Diagnosis: Viral infection, unspecified Presentation: 09/14 19:27 Chief complaint: Patient states: Cough, congested, sore throat and headache since [facility] friday. Coronavirus screen: Vaccine status: Patient reports being unvaccinated. Ebola Screen: Patient denies travel to an Ebola-affected area in the 21 days before illness onset. Initial Sepsis Screen: Does the patient meet any 2 criteria? No. Patient's initial sepsis screen is negative. Does the patient have a suspected source of infection? No. Patient's initial sepsis screen is negative. Risk Assessment: Do you want to hurt yourself or someone else? Patient reports no desire to harm self or others. Onset of symptoms was September 12, 2023. 19:27 Method Of Arrival: Ambulatory [facility] 19:27 Acuity: IRIS 4 [facility] 19:37 Note Refused nose swabs. PA notfied. [facility] Triage Assessment: 19:29 General: Appears in no apparent distress. uncomfortable, Behavior is calm, cooperative, nj appropriate for age. Pain: Complains of pain in Generalized Pain currently is 8 out of 10 on a pain scale. Historical: - Allergies: 19:29 PENICILLINS; nj1 - PMHx: 19:29 Depression; Diabetes - NIDDM; ibs; nj1 - Immunization history:: Client reports having NOT received the Covid vaccine. - Infectious Disease History:: Denies. - Social history:: Smoking status: Reported history of juuling and/or vaping. Screenin:17 [facility] ED Fall Risk Assessment (Adult) History of falling in the last 3 months, jj7 including since admission No falls in past 3 months (0 pts) Confusion or Disorientation No (0 pts) Intoxicated or Sedated No (0 pts) Impaired Gait No (0 pts) Mobility Assist Device Used No (0 pt) Altered Elimination No (0 pt) Score/Fall Risk Level 0 - 2 = Low Risk Oriented to surroundings, Maintained a safe environment, Educated pt \T\ family on fall prevention, incl call for assistance when getting out of bed. Abuse screen: Denies threats or abuse. Nutritional screening: No deficits noted. Tuberculosis screening: No symptoms or risk factors identified. Assessment: 20:17 Reassessment: PT SEEN AND Liset GRIFFIN STATES SHE CAN BE DISCHARGE AFTER SHE RECEIVES ALL jj7 MEDICATIONS. DISCHARGE IN COMPUTER. 20:17 General: Appears in no apparent distress. comfortable, Behavior is calm, cooperative, jj7 appropriate for age. Neuro: Reports headache. 20:36 Reassessment: PT REFUSES ALL IVP MEDS AND FLUIDS. STATES SHE WOULD JUST LIKE PO MEDS jj7 AND WORK EXCUSE. NO PAIN OR DISTRESS NOTED. PT ON CELL PHONE. Vital Signs: 19:27 BP 112 / 71; Pulse 72; Resp 17; Temp 98.1(O); Pulse Ox 99% ; Weight 77.11 kg; Height 5 nj1 ft. 4 in. ; Pain 8/10; 20:46 BP 117 / 69; Pulse 76; Resp 17; Pulse Ox 100% ; jj7 19:27 Body Mass Index 29.18 (77.11 kg, 162.56 cm) nj1 19:27 Pain Scale: Adult [facility] ED Course: 18:48 Patient arrived in ED. im 18:49 [facility] sb[facility] 18:49 Cm Calderón MD is Attending Physician. sb4 19:29 Triage completed. nj1 19:29 Arm band placed on right wrist. nj1 19:37 Strep Sent. nj1 20:17 Michelle Mata, RN is Primary Nurse. jj7 20:17 Patient has correct armband on for positive identification. Bed in low position. Call jj7 light in reach. Provided Education on: USE OF CALL SERRANO. Lights dimmed. 20:17 No provider procedures requiring assistance completed. Patient did not have IV access jj7 during this emergency room visit. Administered Medications: 20:37 Not Given (Patient Refused): ns 0.9% 1000 ml IV at 1 bolus Per protocol; 1000 mL bolus jj7 20:37 Not Given (Patient Refused): kpvntqqlzfqufv74 mg IVP once; over 1 to 2 minutes jj7 20:37 Not Given (Patient Refused): atsahzqlqfwqfrt22.5 mg IVP once jj7 20:38 Not Given (Patient Refused): hupnszeut24 mg IVP once kb 20:43 Drug: Ibuprofen PO 600 mg PO once Route: PO; jj7 20:47 Follow up: Response: No adverse reaction jj7 Medication: 20:17 VIS not applicable for this client. jj7 Outcome: 20:14 Discharge ordered by MD. taveras 20:46 Discharged to home ambulatory, jj7 20:46 Condition: good 20:46 Discharge instructions given to patient, Instructed on discharge instructions, Demonstrated understanding of instructions, 20:48 Patient left the ED. jj7 Signatures: Michelle Mata RN RN jj7 Alis Griffin, PA-C PA-C [email or web address] Indira Rashid RN RN nj1 Ary Montejo Kristin FNP-Lia
--- NOTE | 2023-09-15 20:15 | EDPHYS ---
Physician Documentation [facility] Name: Gisele Tilley Age: 23 yrs Sex: Female : 2000 Arrival Date: 09/15/2023 Time: 18:45 Bed 7 Private MD: ED Physician Cm Calderón HPI: 09/14 19:40 This 23 yrs old Female presents to ER via Ambulatory with complaints of Flu sb4 Symptoms. 19:40 Patient reports feeling poorly for 3 days now. 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 States her symptoms include sinus and nasal congestion, nonproductive cough, headache, body aches, chills. She states that she missed work today because she was feeling so poorly. States she has been taking several different bmcu-wes-ixcboki medications without significant relief in symptoms. Historical: - Allergies: 19:29 PENICILLINS; nj1 - PMHx: 19:29 Depression; Diabetes - NIDDM; ibs; nj1 - Immunization history:: Client reports having NOT received the Covid vaccine. - Infectious Disease History:: Denies. - Social history:: Smoking status: Reported history of juuling and/or vaping. ROS: 19:40 Abdomen/GI: Negative for abdominal pain, nausea, vomiting, diarrhea, and constipation, sb4 19:40 Constitutional: Positive for body aches, chills, 19:40 ENT: Positive for rhinorrhea, sinus congestion, sore throat, 19:40 Respiratory: Positive for cough, 19:40 Neuro: Positive for headache, 19:40 All other systems are negative, Exam: 19:40 Constitutional: This is a well developed, well nourished patient who is awake, alert, sb4 and in no acute distress. Head/Face: Normocephalic, atraumatic. Eyes: Extra-ocular motions intact. Periorbital areas with no swelling, redness, or edema. ENT: Mucous membranes moist. Cardiovascular: Regular rate and rhythm with a normal S1 and S2. Respiratory: Lungs have equal breath sounds bilaterally, clear to auscultation and percussion. No rales, rhonchi or wheezes noted. No increased work of breathing, no retractions or nasal flaring. Abdomen/GI: Soft, non-tender, no distension. Skin: Warm, dry with normal turgor. Normal color with no rashes, no lesions, and no evidence of cellulitis. MS/ Extremity: Pulses equal, no cyanosis. Neurovascular intact. Full, normal range of motion. Neuro: Awake and alert, GCS 15, oriented to person, place, time, and situation. Motor strength 5/5 in all extremities. Sensory grossly intact. 19:40 ENT: Posterior pharynx: Tonsils: with erythema, no enlargement, no exudate, Vital Signs: 19:27 BP 112 / 71; Pulse 72; Resp 17; Temp 98.1(O); Pulse Ox 99% ; Weight 77.11 kg; Height 5 nj1 ft. 4 in. ; Pain 8/10; 20:46 BP 117 / 69; Pulse 76; Resp 17; Pulse Ox 100% ; jj7 19:27 Body Mass Index 29.18 (77.11 kg, 162.56 cm) nj1 19:27 Pain Scale: Adult nj1 MDM: 19:34 Patient medically screened. sb4 19:40 Differential diagnosis: viral Infection, bacterial infection, URI. Data reviewed: vital sb4 signs, nurses notes, lab test result(s), and as a result, I will discharge patient. 09/14 19:34 Order name: Strep; Complete Time: 20:35 sb4 09/14 20:09 Order name: Throat Culture EDMS Administered Medications: 20:37 Not Given (Patient Refused): ns 0.9% 1000 ml IV at 1 bolus Per protocol; 1000 mL bolus jj7 20:37 Not Given (Patient Refused): ujhazcmvtkddna43 mg IVP once; over 1 to 2 minutes jj7 20:37 Not Given (Patient Refused): mxqncymyivvbihe02.5 mg IVP once jj7 20:38 Not Given (Patient Refused): jmoxgicvw26 mg IVP once kb 20:43 Drug: Ibuprofen PO 600 mg PO once Route: PO; jj7 20:47 Follow up: Response: No adverse reaction jj7 Disposition Summary: 09/15/23 20:14 Discharge Ordered Notes: Location: Home sb4 Problem: new sb4 Symptoms: have improved sb4 Condition: Stable sb4 Diagnosis - Viral infection, unspecified sb4 Followup: sb4 - With: Emergency Department - When: As needed - Reason: Trouble breathing, Worsening of condition Discharge Instructions: - Discharge Summary Sheet sb4 - Viral Illness, Adult sb4 Forms: - Work release form sb4 - Thank You Letter sb4 - Patient Portal Instructions sb4 - Leadership Thank You Letter sb4 Addendum: 09/17/2023 07:13 I was immediately available for consultation during this patient's visit. I did not e c2 personally see the patient or discuss the patient with the STEVIE. . Signatures: Dispatcher [employer] EDNJ Shonda Sandoval, COMPUTER REPAIR ENGINEER-C COMPUTER REPAIR ENGINEER-Michelle Weathers RN RN jj7 Alsi Griffin PA-C PA-C sb4 Indira Rashid RN RN nj1 Cm Calderón MD MD ec2 Corrections: (The following items were deleted from the chart) 09/14 20:22 19:35 SARS-COV-2 Antigen Rapid+I.LAB.BRZ ordered. EDMS EDMS 20:22 19:35 Influenza Screen (A \T\ B)+BA.LAB.BRZ ordered. EDMS EDMS 20:37 19:34 IV Saline Lock ordered. sb4 jj7
[2023-09-15] MEDS ORDERED: KETOROLAC 30 MG/ML INJ ONE (20:22)
[2023-09-15] MEDS ORDERED: METOCLOPRAMIDE 10 MG/2mL INJ ONE (20:23)
[2023-09-15] MEDS ORDERED: NA CHLORIDE 0.9% 1,000 ML ONE (20:23)
[2023-09-15] MEDS ORDERED: DIPHENHYDRAMINE 50 MG/ML VIAL ONE (20:23)
[2023-09-15] MEDS ORDERED: IBUPROFEN 200 MG TAB PO ONE (20:40)
[2023-09-16 01:45] VITALS: BP 117/69; TEMP 98.1; O2SAT 100
== END 2023-09-15 20:48 | disposition home or self-care (01) ==
LOC: ER 18:45
DX: B34.9 Viral infection, unspecified (principal); Z11.52 Encounter for screening for COVID-19; Z28.310 Unvaccinated for COVID-19; Z88.0 Allergy status to penicillin
CPT/HCPCS: 87070; 87081; 99283; J1200; J2765; J7030